=== PATIENT | female | born 1975 | race Caucasian/White ===

== ENCOUNTER 2020-09-07 20:43 | Emergency (ER) | payer OTHER, SELFPAY ==
--- NOTE | ~2020-09-07 | US_ITS ---
EXAMINATION: ABDOMINAL ULTRASOUND LIMITED CLINICAL INFORMATION: Right upper quadrant pain. COMPARISON: 04/09/2020. TECHNIQUE: Real-time imaging of the right upper quadrant abdominal viscera. FINDINGS: LIVER: The visualized portions of the liver are of normal size and echogenicity without focal lesions nor intrahepatic biliary ductal dilation. GALLBLADDER: Normal. The gallbladder is physiologically distended without evidence of stones, sludge, polyps, wall thickening or pericholecystic fluid. COMMON BILE DUCT: Normal in caliber measuring 0.4 cm in diameter. FREE FLUID: None. US/US abdomen limited IMPRESSION: Unremarkable limited right upper quadrant ultrasound. Specifically, neither cholelithiasis nor cholecystitis.
--- NOTE | ~2020-09-07 | CT_ITS ---
EXAMINATION: CT ABDOMEN AND PELVIS WITHOUT CONTRAST CLINICAL INFORMATION: Diffuse abdominal pain. Rule out extensive colitis COMPARISON: Ultrasound earlier the same day. Prior CT 04/09/2020. TECHNIQUE: Multidetector volumetric imaging was performed from the superior aspect of the liver through the pubic symphysis. Sagittal and coronal reformatted images were obtained on the technologist's workstation. This CT examination was performed using dose optimization techniques as appropriate, variously including the following: *Automated exposure control *Adjustment of mA and/or kV according to patient size (this includes techniques or standardized protocols for targeted exams where dose is matched to indication/reason for exam; i.e. extremities or head) *Use of iterative reconstruction technique DLP: 458 mGy-cm FINDINGS: LUNG BASES: The visualized lung bases are unremarkable. LIVER, GALLBLADDER, AND BILIARY TREE: There is likely diffuse hepatic steatosis with areas of focal fatty sparing adjacent the gallbladder fossa. The gallbladder is unremarkable with no evidence of radiopaque gallstones, gallbladder wall thickening, or obvious pericholecystic inflammatory changes. PANCREAS: Unremarkable. SPLEEN: Unremarkable. ADRENAL GLANDS: Left adrenal gland is diffusely enlarged, 1.2 cm. It has noncontrast density 15 Hounsfield units but it is not changed in size from the prior study. Normal right adrenal gland. KIDNEYS AND URETERS: The kidneys are normal in size, shape, and attenuation. No hydronephrosis, hydroureter, or calculi seen. No perinephric stranding. BLADDER: Unremarkable. GASTROINTESTINAL TRACT: The right colon is normal in appearance. The transverse colon, left colon, and sigmoid colon are collapsed with equivocal pathologic wall thickening. There rectum is similarly collapsed with equivocal wall thickening. ABDOMINAL WALL: There is diastases of the rectus abdominis with a tiny fat-containing umbilical hernia. LYMPH NODES: Normal sized retroperitoneal lymph nodes are present. VASCULAR: Unremarkable. PELVIC VISCERA: Uterus not seen likely surgically absent. No adnexal mass. OSSEOUS STRUCTURES: Unremarkable. CT/CT abdomen pelvis wo con IMPRESSION: The transverse colon, left colon, sigmoid colon, and rectum are collapsed with equivocal wall thickening. The wall thickening may be due to underdistention but a colitis is possible as well. Particularly the transverse colon appears to have a degree of wall thickening greater than expected for the degree of underdistention. No definite pericolonic fluid or inflammatory changes are seen however.
[2020-09-07 20:51] VITALS: BP 154/86; PULSE 100; RESP 18; TEMP 36.9; O2SAT 99; BMI 22.4
[2020-09-07 21:31] VITALS: BP 151/93; PULSE 104; RESP 18; TEMP 37.3; O2SAT 98
--- NOTE | 2020-09-07 21:52 | ED.GENADULT ---
HPI - General Adult General Chief complaint: Abdominal Pain Stated complaint: fever,abdominal pain Time Seen by Provider: 09/07/20 21:46 Source: patient and per diem interpreter Mode of arrival: ambulatory Limitations: no limitations History of Present Illness HPI narrative: This is a 45-year-old female walked in with complain of right upper quadrant abdominal pain, pain started today, pain is localized to the right upper quadrant with no radiation, describes the pain is dull aching pain under her right ribs, describe it as severe 8/10, pain has been constant and progressively worsening throughout the day, nothing makes the pain worse, nothing makes it better, never had history of similar pain. Pain is associated with runs of diarrhea started yesterday (patient described it as black diarrhea) patient refuse rectal examination, patient stated that she had 1 bowel movement while in the emergency department and was not black, patient otherwise declined nausea, vomiting, fever, or chills. Related Data Allergies Allergy/AdvReac Type Severity Reaction Status Date / Time ciprofloxacin [From CIPRO] Allergy Intermediate RASH Verified 09/07/20 20:51 Sulfa (Sulfonamide Allergy Intermediate RASH Verified 09/07/20 20:51 Antibiotics) [SULFA (SULFONAMIDE ANTIBIOTICS)] sulfamethoxazole Allergy Unknown SWELLING Verified 09/07/20 20:51 [From SEPTRA] trimethoprim [From APRRA] Allergy Unknown SWELLING Verified 09/07/20 20:51 SEAFOOD Allergy Severe ANAPHYLAXIS Uncoded 09/07/20 20:51 Review of Systems Review of Systems: All other systems are reviewed and are negative Constitutional: Reports as per HPI and Reports no additional constitutional complaints Eyes: Reports as per HPI and Reports no additional eye complaints Reports system reviewed and no additional complaints, except as documented Cardiovascular: Reports as per HPI and Reports no additional cardiovascular complaints Respiratory: Reports as per HPI and Reports no additional respiratory complaints Gastrointestinal: Reports as per HPI and Reports no additional gastrointestinal complaints Genitourinary: Reports no additional female genitourinary complaints Musculoskeletal: Reports no additional musculoskeletal complaints Skin/Breast: Reports system reviewed and no additional complaints, except as docu Psychiatric: Reports no additional psychiatric complaints Endocrine: Reports no additional endocrine complaints Hematologic/Lymphatic: Reports no additional hematologic/lymphatic complaints Allergic/Immunologic: Reports no additional allergic/immunologic complaints Reports system reviewed and no additional complaints, except as documented and Reports Abnormal speech present [facility], [facility] Past Medical History Medical History Asthma Diabetes Hepatitis A Social History Social History Alcohol intake: never Smoking Status: Current every day smoker Use of substances other than those prescribed or required for medical reasons: No Advance Directives: No Advance Directives Information Provided: No Physical Exam Vital Signs: Vital Signs: Last Vital Signs Temp 98.3 F 09/08/20 00:00 Pulse 82 09/08/20 00:00 Resp 18 09/08/20 00:00 BP 133/88 09/08/20 00:00 Pulse Ox 100 09/08/20 00:00 Body Mass Index 22.4 Vital signs have been reviewed as normal and appeared to be correct. Blood pressure in the high range. Heart rate : Tachycardia. Respiration rate normal. Temperature normal. Oxygen saturation normal. Appearance: Alert. Oriented X3. No acute distress. Head: Normal external exam. Normocephalic. Atraumatic. No Benitez signs noted. No raccoon eyes noted Eyes: PERRLA. EOMI. Conjunctiva and sclera normal. Eyelids normal. ENT: TM's Normal. Pharynx normal. Uvula midline. Moist mucous membranes. No trismus noted. No drooling noted. No muffled voice noted. Neck: Normal inspection. Neck supple. FROM. No adenopathy. Thyroid Normal. No meningeal signs. No neck mass noted. CVS: Normal heart rate and rhythm. Heart sound normal. No murmurs noted. Pulses normal throughout. Respiratory: No respiratory distress. Painless inspiration. Breath sounds normal. No wheezes/rales/rhonchi noted. Chest nontender. No accessory muscle usage noted or decreased air movement noted. Abdomen: Soft: Mild right upper quadrant tenderness, no rebound, no guarding.. Bowel sounds normal in all 4 quadrants. No distention noted. No organomegaly noted. No visible injury noted. Back: No CVA tenderness. Full range of motion noted. Skin: Skin warm and dry. Normal skin color. Normal skin turgor. No rashes/lesions/lacerations noted. Extremities: No lower extremity edema. Extremities exhibit normal range of motion. Extremities nontender. Neuro: Oriented X 3. No motor deficit. No sensory deficit. Reflexes normal. Course Course Course Narrative: Assessment and plan. 45-year-old female came in with abdominal pain and nonbloody watery diarrhea, however patient reported black diarrhea in the beginning then started to become yellow now and patient refused rectal examination. Labs, gallbladder ultrasound, abdominal CT and unremarkable. As discussed with the patient will discharged can use [id number] Imodium follow-up with PCP. Medical Decision Making Lab Data Lab results reviewed: Yes I reviewed the patient's lab results. Result diagrams: 09/07/20 22:03 09/07/20 22:03 Labs: Lab Results 09/07/20 09/07/20 09/07/20 Range/Units 22:03 22:03 22:03 WBC 11.3 H (4.8-10.8) X10*3/uL RBC 4.71 (4.20-5.50) X10*6/uL Hgb 14.1 (12.0-16.0) g/dl Hct 41.6 (37-47) % MCV 88.3 (80-98) fL MCH 29.9 (27.0-33.0) pg MCHC 33.9 (31.0-35.0) g/dl RDW 12.6 (11.0-16.0) % Plt Count 364 (160-400) X10*3/uL MPV 9.8 (9.4-12.3) fL Immature Gran % (Auto) 0.3 (0.0-0.4) % Neut % (Auto) 66.4 (45-73) % Lymph % (Auto) 26.2 (20-40) % [place] % (Auto) 5.7 (2-11) % Eos % (Auto) 1.0 (0-4) % Baso % (Auto) 0.4 (0-2) % Lymph # (Auto) 3.0 (1.2-4.9) X10*3/uL [place] # (Auto) 0.7 (0.1-1.2) X10*3/uL Eos # (Auto) 0.1 (0.0-0.4) X10*3/uL Baso # (Auto) 0.0 (0.0-0.2) X10*3/uL Abs Immat Gran (auto) 0.03 (0.00-0.03) X10*3/uL Absolute Neuts (auto) 7.5 (2.0-8.3) X10*3/uL Absolute Nucleated RBC 0.000 (0.0-0.012) X10*3/uL Nucleated RBC % (auto) 0.0 (0.0-0.2) /100WBC Sodium 138 (135-145) mmol/L Potassium 3.7 (3.3-5.1) mmol/L Chloride 101 (96-108) mmol/L Carbon Dioxide 23 (22-29) mmol/L Anion Gap 18 (12-20) BUN 7 L (9-16) mg/dL Creatinine 0.80 (0.5-1.4) mg/dL Estim Creat Clear Calc 80.8 Estimated GFR > 60 Random Glucose 258 H (60-115) mg/dL Calcium 9.0 (8.4-10.2) mg/dL Total Bilirubin 0.4 (0.0-1.0) mg/dL Direct Bilirubin 0.2 (0.0-0.5) mg/dL AST 45 H (5-31) U/L ALT 57 H (0-31) U/L Alkaline Phosphatase 103 (39-117) U/L Total Protein 7.6 (6.5-8.0) g/dL Albumin 4.3 (3.5-5.0) g/dL Lipase 55 (8-78) U/L Urine Color Urine Appearance Urine pH (5.0-8.0) Ur Specific [place] (1.005-1.025) Urine Protein (NEG-TRACE) MG/DL Urine Glucose (UA) (NEG) MG/DL Urine Ketones (NEG) MG/DL Urine Blood (NEG) Urine Nitrite (NEG) Ur Leukocyte Esterase (NEG) Urine Test (NEGATIVE) 09/07/20 Range/Units 22:20 WBC (4.8-10.8) X10*3/uL RBC (4.20-5.50) X10*6/uL Hgb (12.0-16.0) g/dl Hct (37-47) % MCV (80-98) fL MCH (27.0-33.0) pg MCHC (31.0-35.0) g/dl RDW (11.0-16.0) % Plt Count (160-400) X10*3/uL MPV (9.4-12.3) fL Immature Gran % (Auto) (0.0-0.4) % Neut % (Auto) (45-73) % Lymph % (Auto) (20-40) % [place] % (Auto) (2-11) % Eos % (Auto) (0-4) % Baso % (Auto) (0-2) % Lymph # (Auto) (1.2-4.9) X10*3/uL [place] # (Auto) (0.1-1.2) X10*3/uL Eos # (Auto) (0.0-0.4) X10*3/uL Baso # (Auto) (0.0-0.2) X10*3/uL Abs Immat Gran (auto) (0.00-0.03) X10*3/uL Absolute Neuts (auto) (2.0-8.3) X10*3/uL Absolute Nucleated RBC (0.0-0.012) X10*3/uL Nucleated RBC % (auto) (0.0-0.2) /100WBC Sodium (135-145) mmol/L Potassium (3.3-5.1) mmol/L Chloride (96-108) mmol/L Carbon Dioxide (22-29) mmol/L Anion Gap (12-20) BUN (9-16) mg/dL Creatinine (0.5-1.4) mg/dL Estim Creat Clear Calc Estimated GFR Random Glucose (60-115) mg/dL Calcium (8.4-10.2) mg/dL Total Bilirubin (0.0-1.0) mg/dL Direct Bilirubin (0.0-0.5) mg/dL AST (5-31) U/L ALT (0-31) U/L Alkaline Phosphatase (39-117) U/L Total Protein (6.5-8.0) g/dL Albumin (3.5-5.0) g/dL Lipase (8-78) U/L Urine Color YELLOW Urine Appearance CLEAR Urine pH 6.0 (5.0-8.0) Ur Specific [place] >= 1.030 H (1.005-1.025) Urine Protein NEG (NEG-TRACE) MG/DL Urine Glucose (UA) 500 H (NEG) MG/DL Urine Ketones NEG (NEG) MG/DL Urine Blood NEG (NEG) Urine Nitrite NEG (NEG) Ur Leukocyte Esterase NEG (NEG) Urine Test NEGATIVE (NEGATIVE) Imaging Data CT scan - abdomen: Radiologist's impression: The transverse colon, left colon, sigmoid colon, and rectum are collapsed with equivocal wall thickening. The wall thickening may be due to underdistention but a colitis is possible as well. Particularly the transverse colon appears to have a degree of wall thickening greater than expected for the degree of underdistention. No definite pericolonic fluid or inflammatory changes are seen however. Gallbladder ultrasound.: Radiologist's impression: Unremarkable limited right upper quadrant ultrasound. Specifically, neither cholelithiasis nor cholecystitis. Discharge Plan Discharge Clinical Impression: Elevated liver function tests Diarrhea Qualifiers: Diarrhea type: unspecified type Qualified Code(s): R19.7 - Diarrhea, unspecified Abdominal pain Qualifiers: Abdominal location: upper abdomen, unspecified Qualified Code(s): R10.10 - Upper abdominal pain, unspecified Patient Disposition: Home, Self-Care Instructions: Acute Diarrhea (ED), Abdominal Pain (ED) Referrals: Jayashree Quick PA [Primary Care Provider] - 2 days
[2020-09-07] MEDS: 0.9 % Sodium Chloride 1,000 ML 999 ML IVCONT (22:04)
[2020-09-07 22:22] LABS: Basophils Percent Auto 0.4 % (0-2); Eosinophils Absolute Auto 0.1 X10*3/uL (0.0-0.4); Hematocrit 41.6 % (37-47); Hemoglobin 14.1 g/dl (12.0-16.0); Imm Gran Abs Auto 0.03 X10*3/uL (0.00-0.03); Imm Gran Pct Auto 0.3 % (0.0-0.4); Lymphocytes Percent Auto 26.2 % (20-40); MANUAL DIFF FLAG NO; Mean Corpuscular HGB Conc 33.9 g/dl (31.0-35.0); Mean Corpuscular Hemoglobin 29.9 pg (27.0-33.0); Mean Corpuscular Volume 88.3 fL (80-98); Mean Platelet Volume 9.8 fL (9.4-12.3); Monocytes Absolute Auto 0.7 X10*3/uL (0.1-1.2); Monocytes Percent Auto 5.7 % (2-11); Neutrophils Absolute Auto 7.5 X10*3/uL (2.0-8.3); Neutrophils Percent Auto 66.4 % (45-73); Platelet Count 364 X10*3/uL (160-400); Red Blood Count 4.71 X10*6/uL (4.20-5.50); Red Cell Distribution Width 12.6 % (11.0-16.0); White Blood Count 11.3 X10*3/uL (4.8-10.8)
[2020-09-07] MEDS: Ketorolac Tromethamine 15 MG/ML VIAL IV (22:24)
[2020-09-07 22:33] LABS: Glucose Urine UA 500 MG/DL (NEG); Leukocyte Esterase Urine NEG (NEG); Nitrite Urine NEG (NEG); Specific Gravity - Urine >= 1.030 (1.005-1.025); Urine Blood NEG (NEG); Urine Ketones NEG (NEG); Urine Protein NEG (NEG-TRACE)
[2020-09-07 22:36] LABS: Appearance Urine CLEAR; Color Urine YELLOW; UPreg QC Valid YES; Urine Pregnancy NEGATIVE (NEGATIVE)
[2020-09-07 22:40] VITALS: BP 128/78; BP 136/89; PULSE 84; PULSE 87
[2020-09-07 22:41] VITALS: BP 132/88; PULSE 94
[2020-09-07 22:43] LABS: Lipase 55 U/L (8-78)
[2020-09-07 22:45] LABS: Alanine Aminotransferase 57 U/L (0-31); Albumin Level 4.3 g/dL (3.5-5.0); Alkaline Phosphatase 103 U/L (39-117); Anion Gap 18 (12-20); Aspartate Amino Transferase 45 U/L (5-31); Bilirubin Direct 0.2 mg/dL (0.0-0.5); Bilirubin Total 0.4 mg/dL (0.0-1.0); Blood Urea Nitrogen 7 mg/dL (9-16); Carbon Dioxide 23 mmol/L (22-29); Chloride 101 mmol/L (96-108); Creatinine Clr Calc Pharmacy 80.8; Estimated Glomerular Filt Rate > 60; Glucose Random 258 mg/dL (60-115); Potassium 3.7 mmol/L (3.3-5.1); Sodium 138 mmol/L (135-145); Total Protein 7.6 g/dL (6.5-8.0)
[2020-09-08] VITALS: BP 133/88; PULSE 82; RESP 18; TEMP 36.8; O2SAT 100
== END 2020-09-08 01:07 | disposition home or self-care (01) ==
PROVIDERS: Emergency Provider Emergency Medicine; PCP Physician Assistant Medical
DX: R19.7 Diarrhea, unspecified (principal); R10.11 Right upper quadrant pain; R79.89 Other specified abnormal findings of blood chemistry; E11.9 Type 2 diabetes mellitus without complications
CPT/HCPCS: 36415; 74176; 76705; 80048; 80076; 81003; 81025; 83690; 85025; 96361; 96374; 99284; 99285; J1885

== ENCOUNTER 2020-10-22 17:47 | Emergency (ER) | payer OTHER, SELFPAY ==
--- NOTE | ~2020-10-22 | CT_ITS ---
EXAMINATION: CT ABDOMEN AND PELVIS WITH CONTRAST CLINICAL INFORMATION: Right upper quadrant and epigastric pain COMPARISON: CT abdomen pelvis 09/07/2020 and ultrasound abdomen 09/07/2020 TECHNIQUE: Multidetector volumetric images were obtained from the superior aspect of the liver through the pubic symphysis following administration 85 mL of Omnipaque 350 intravenous contrast. Sagittal and coronal reformatted images were obtained on the technologist's workstation. Oral contrast: No This CT examination was performed using dose optimization techniques as appropriate, variously including the following: *Automated exposure control *Adjustment of mA and/or kV according to patient size (this includes techniques or standardized protocols for targeted exams where dose is matched to indication/reason for exam; i.e. extremities or head) *Use of iterative reconstruction technique DLP: 466 mGy-cm FINDINGS: LUNG BASES: The visualized lung bases are unremarkable. A 1 cm posterior paracardiac lymph node is seen, unchanged. LIVER, GALLBLADDER, AND BILIARY TREE: The liver is mildly enlarged measuring 18.7 cm in greatest cephalocaudad dimension. Diffuse height low-attenuation most likely reflects hepatic steatosis. This was noted on the prior ultrasound with an area of focal fatty sparing adjacent to the gallbladder better appreciated on the ultrasound exam than this CT study. No focal hepatic lesion or biliary ductal dilatation is present. The gallbladder is unremarkable with no evidence of radiopaque gallstones, gallbladder wall thickening, or obvious pericholecystic inflammatory changes. PANCREAS: Unremarkable. SPLEEN: Unremarkable. ADRENAL GLANDS: Bilateral adrenal masses/hypertrophy are unchanged. KIDNEYS AND URETERS: The kidneys are normal in size, shape, and attenuation. No hydronephrosis, hydroureter, or calculi seen. No perinephric stranding. BLADDER: Unremarkable. GASTROINTESTINAL TRACT: Small hiatal hernia is present. The small and large bowel are unremarkable. The appendix is none seen with certainty but there is no evidence of appendicitis.. ABDOMINAL WALL: No significant hernia is appreciated. Injection granulomas are noted in the buttocks. LYMPH NODES: No retroperitoneal lymphadenopathy seen. VASCULAR: Infrarenal aortobiiliac atherosclerotic disease is present most marked at the bifurcation and common iliac arteries. PELVIC VISCERA: Surgically removed OSSEOUS STRUCTURES: Unremarkable. CT/CT abdomen pelvis w con IMPRESSION: 1. Enlarged fatty liver 2. Unchanged bilateral adrenal masses, presumed benign adenomas 3. Small hiatal hernia 4. Status post hysterectomy
[2020-10-22 18:23] VITALS: BP 174/87; PULSE 100; RESP 18; O2SAT 100; BMI 24.2
[2020-10-22 18:46] LABS: MANUAL DIFF FLAG NO
[2020-10-22 18:48] LABS: Basophils Percent Auto 0.2 % (0-2); Eosinophils Absolute Auto 0.1 X10*3/uL (0.0-0.4); Eosinophils Percent Auto 0.4 % (0-4); Hematocrit 40.9 % (37-47); Hemoglobin 13.7 g/dl (12.0-16.0); Imm Gran Abs Auto 0.04 X10*3/uL (0.00-0.03); Imm Gran Pct Auto 0.3 % (0.0-0.4); Lymphocytes Absolute Auto 2.6 X10*3/uL (1.2-4.9); Lymphocytes Percent Auto 21.3 % (20-40); Mean Corpuscular HGB Conc 33.5 g/dl (31.0-35.0); Mean Corpuscular Hemoglobin 29.1 pg (27.0-33.0); Monocytes Absolute Auto 0.6 X10*3/uL (0.1-1.2); Monocytes Percent Auto 4.7 % (2-11); Neutrophils Absolute Auto 8.8 X10*3/uL (2.0-8.3); Neutrophils Percent Auto 73.1 % (45-73); Platelet Count 358 X10*3/uL (160-400); Red Cell Distribution Width 12.6 % (11.0-16.0)
[2020-10-22 18:56] LABS: Glucose Urine UA >=1000 MG/DL (NEG); Leukocyte Esterase Urine NEG (NEG); Nitrite Urine NEG (NEG); Specific Gravity - Urine 1.015 (1.005-1.025); Urine Blood NEG (NEG); Urine Ketones NEG (NEG); Urine Protein NEG (NEG-TRACE)
[2020-10-22 19:01] LABS: Appearance Urine CLEAR; Color Urine YELLOW
[2020-10-22 19:06] LABS: UPreg QC Valid YES; Urine Pregnancy NEGATIVE (NEGATIVE)
[2020-10-22 19:18] LABS: Alanine Aminotransferase 46 U/L (0-31); Albumin Level 4.2 g/dL (3.5-5.0); Alkaline Phosphatase 122 U/L (39-117); Anion Gap 17 (12-20); Aspartate Amino Transferase 26 U/L (5-31); Bilirubin Direct < 0.2 mg/dL (0.0-0.5); Bilirubin Total 0.5 mg/dL (0.0-1.0); Blood Urea Nitrogen 7 mg/dL (9-16); Carbon Dioxide 30 mmol/L (22-29); Chloride 95 mmol/L (96-108); Creatinine Clr Calc Pharmacy 75.1; Estimated Glomerular Filt Rate > 60; Glucose Random 421 mg/dL (60-115); Potassium 3.9 mmol/L (3.3-5.1); Sodium 138 mmol/L (135-145); Total Protein 7.7 g/dL (6.5-8.0)
[2020-10-22 19:23] LABS: RBC Urine 0 /HPF (0); Squamous Epithelial Cell Urine 1+ /LPF
[2020-10-22 21:22] LABS: Acetone, serum QL Negative (Negative)
[2020-10-22] MEDS: Insulin Regular, Human 100 UNIT/ML 3 ML VIAL 10 UNIT IVPUSH (21:39)
[2020-10-22] MEDS: 0.9 % Sodium Chloride 1,000 ML 999 ML IVCONT (21:39)
--- NOTE | 2020-10-22 21:41 | ED_ITS ---
HPI - Abdominal Pain General Chief Complaint: Abdominal Pain Stated Complaint: Abd Pain Time Seen by Provider: 10/22/20 20:58 Source: patient Mode of arrival: ambulatory Limitations: no limitations History of Present Illness HPI narrative: Patient comes emergency room complaining of epigastric and right upper quadrant pain. Patient states that she has had similar pain in the past. Patient denies vomiting or diarrhea. The pain started earlier this morning. Patient was evaluated on September 07 for abdominal pain, she had a CT scan and a right upper quadrant ultrasound, both within normal limits Related Data Allergies Allergy/AdvReac Type Severity Reaction Status Date / Time ciprofloxacin [From CIPRO] Allergy Intermediate RASH Verified 09/07/20 20:51 Sulfa (Sulfonamide Allergy Intermediate RASH Verified 09/07/20 20:51 Antibiotics) [SULFA (SULFONAMIDE ANTIBIOTICS)] sulfamethoxazole Allergy Unknown SWELLING Verified 09/07/20 20:51 [From ] trimethoprim [From ] Allergy Unknown SWELLING Verified 09/07/20 20:51 SEAFOOD Allergy Severe ANAPHYLAXIS Uncoded 09/07/20 20:51 Review of Systems Review of Systems Constitutional : No Weight loss, No Fever, No Chills, No Night Sweats, No Fatigue, No Malaise ENT/Mouth : No Hearing loss, No Ear Pain, No Nasal Congestion, No Sinus Pain, No Hoarseness, No sore throat, No Rhinorrhea, No Swallowing Difficulty Eyes: No Eye Pain, No Swelling, No Redness, No Foreign Body, No Discharge, No V ision Changes Cardiovascular : No Chest Pain, No SOB, No Dyspnea on Exertion, No Orthopnea, No Edema, No Palpitations Respiratory : No Cough, No Sputum, No Wheezing, No Smoke Exposure, No Dyspnea Gastrointestinal : No Nausea, No Vomiting, No Diarrhea, No Constipation, complaining of epigastric and right upper quadrant pain, No Hematochezia, No Melena Genitourinary : no irregular bleeding, No Dysuria, No Urinary Frequency, No Hematuria, No Urinary Incontinence, No Urgency, No Flank Pain, No Urinary Flow Changes, No Hesitancy Musculoskeletal : No joint pain, No Myalgias, No Joint Swelling Skin : No Skin Lesions, No rash Neuro : No Weakness, No Numbness, No Paresthesias, No Loss of Consciousness, No Dizziness, No Headache Psych : No Anxiety/Panic, No Depression, No SI/HI/AH/VH, No Social Issues, Heme/Lymph: No Bruising, No Bleeding,No Lymphadenopathy Endocrine : No Polyuria, No Polydipsia, No Temperature Intolerance Physical Exam Vital Signs: Vital Signs: Last Vital Signs Temp 98.7 F 10/22/20 22:00 Pulse 84 10/22/20 22:00 Resp 16 10/22/20 22:00 BP 165/87 H 10/22/20 22:00 Pulse Ox 100 10/22/20 22:00 Body Mass Index 24.2 Appearance: Alert. Oriented X3. No acute distress. Eyes: Pupils equal, round and reactive to light. ENT: Pharynx normal. Neck: Normal inspection. Neck supple. No lymph nodes noted. No crepitus CVS: Normal heart rate and rhythm. Pulses normal. Normal S1 and S2 Respiratory: No respiratory distress. Breath sounds normal. No Wheezing. No rales Abdomen: Soft , pain to palpation over the epigastric area in the right upper quadrant No rigidity. No distention. good BS x4 Skin: Skin warm and dry. Normal skin color. Normal skin turgor. Extremities: No lower extremity edema. No lower extremity edema. No Lacerations. No Rash Neuro: Oriented X 3. No motor deficit. No sensory deficit. Moving all extermities. No slurred speech. Course Course Course Narrative: I discussed the labs and imaging with the patient, no acute findings patient's adrenal masses/possible benign adenomas are unchanged. Patient does have a fatty liver. Otherwise no acute findings. I discussed with the patient that she has presumably benign adenomas, but she needs to follow up with her primary care physician about these findings. Overall patient states that she feels a little bit better, but is concerned about the recurrent abdominal pain. Patient states that she has gastroenterology office visit pending Also discussed with the patient that she has fatty liver, she will talk to her primary care physician about a diet plan. MDM - Abdominal Pain Lab Data Result diagrams: 10/22/20 18:40 10/22/20 18:40 Labs: Lab Results 10/22/20 10/22/20 10/22/20 Range/Units 18:40 18:40 18:40 WBC 12.0 H (4.8-10.8) X10*3/uL RBC 4.70 (4.20-5.50) X10*6/uL Hgb 13.7 (12.0-16.0) g/dl Hct 40.9 (37-47) % MCV 87.0 (80-98) fL MCH 29.1 (27.0-33.0) pg MCHC 33.5 (31.0-35.0) g/dl RDW 12.6 (11.0-16.0) % Plt Count 358 (160-400) X10*3/uL MPV 10.0 (9.4-12.3) fL Immature Gran % (Auto) 0.3 (0.0-0.4) % Neut % (Auto) 73.1 H (45-73) % Lymph % (Auto) 21.3 (20-40) % [place] % (Auto) 4.7 (2-11) % Eos % (Auto) 0.4 (0-4) % Baso % (Auto) 0.2 (0-2) % Lymph # (Auto) 2.6 (1.2-4.9) X10*3/uL [place] # (Auto) 0.6 (0.1-1.2) X10*3/uL Eos # (Auto) 0.1 (0.0-0.4) X10*3/uL Baso # (Auto) 0.0 (0.0-0.2) X10*3/uL Abs Immat Gran (auto) 0.04 H (0.00-0.03) X10*3/uL Absolute Neuts (auto) 8.8 H (2.0-8.3) X10*3/uL Absolute Nucleated RBC 0.000 (0.0-0.012) X10*3/uL Nucleated RBC % (auto) 0.0 (0.0-0.2) /100WBC Sodium 138 (135-145) mmol/L Potassium 3.9 (3.3-5.1) mmol/L Chloride 95 L (96-108) mmol/L Carbon Dioxide 30 H (22-29) mmol/L Anion Gap 17 (12-20) BUN 7 L (9-16) mg/dL Creatinine 0.86 (0.5-1.4) mg/dL Estim Creat Clear Calc 75.1 Estimated GFR > 60 Random Glucose 421 H* (60-115) mg/dL Calcium 10.0 D (8.4-10.2) mg/dL Total Bilirubin 0.5 (0.0-1.0) mg/dL Direct Bilirubin < 0.2 (0.0-0.5) mg/dL AST 26 D (5-31) U/L ALT 46 H (0-31) U/L Alkaline Phosphatase 122 H (39-117) U/L Total Protein 7.7 (6.5-8.0) g/dL Albumin 4.2 (3.5-5.0) g/dL Urine Color YELLOW Urine Appearance CLEAR Urine pH 7.0 (5.0-8.0) Ur Specific [place] 1.015 (1.005-1.025) Urine Protein NEG (NEG-TRACE) MG/DL Urine Glucose (UA) >=1000 H (NEG) MG/DL Urine Ketones NEG (NEG) MG/DL Urine Blood NEG (NEG) Urine Nitrite NEG (NEG) Ur Leukocyte Esterase NEG (NEG) Urine RBC 0 (0) /HPF Urine WBC 1-4 (0-4) /HPF Ur Squamous Epith Cells 1+ /LPF Urine Bacteria NONE /LPF Urine Yeast 1+ /HPF Urine Test (NEGATIVE) Acetone, Qual Negative (Negative) 10/22/20 Range/Units 18:40 WBC (4.8-10.8) X10*3/uL RBC (4.20-5.50) X10*6/uL Hgb (12.0-16.0) g/dl Hct (37-47) % MCV (80-98) fL MCH (27.0-33.0) pg MCHC (31.0-35.0) g/dl RDW (11.0-16.0) % Plt Count (160-400) X10*3/uL MPV (9.4-12.3) fL Immature Gran % (Auto) (0.0-0.4) % Neut % (Auto) (45-73) % Lymph % (Auto) (20-40) % [place] % (Auto) (2-11) % Eos % (Auto) (0-4) % Baso % (Auto) (0-2) % Lymph # (Auto) (1.2-4.9) X10*3/uL [place] # (Auto) (0.1-1.2) X10*3/uL Eos # (Auto) (0.0-0.4) X10*3/uL Baso # (Auto) (0.0-0.2) X10*3/uL Abs Immat Gran (auto) (0.00-0.03) X10*3/uL Absolute Neuts (auto) (2.0-8.3) X10*3/uL Absolute Nucleated RBC (0.0-0.012) X10*3/uL Nucleated RBC % (auto) (0.0-0.2) /100WBC Sodium (135-145) mmol/L Potassium (3.3-5.1) mmol/L Chloride (96-108) mmol/L Carbon Dioxide (22-29) mmol/L Anion Gap (12-20) BUN (9-16) mg/dL Creatinine (0.5-1.4) mg/dL Estim Creat Clear Calc Estimated GFR Random Glucose (60-115) mg/dL Calcium (8.4-10.2) mg/dL Total Bilirubin (0.0-1.0) mg/dL Direct Bilirubin (0.0-0.5) mg/dL AST (5-31) U/L ALT (0-31) U/L Alkaline Phosphatase (39-117) U/L Total Protein (6.5-8.0) g/dL Albumin (3.5-5.0) g/dL Urine Color Urine Appearance Urine pH (5.0-8.0) Ur Specific [place] (1.005-1.025) Urine Protein (NEG-TRACE) MG/DL Urine Glucose (UA) (NEG) MG/DL Urine Ketones (NEG) MG/DL Urine Blood (NEG) Urine Nitrite (NEG) Ur Leukocyte Esterase (NEG) Urine RBC (0) /HPF Urine WBC (0-4) /HPF Ur Squamous Epith Cells /LPF Urine Bacteria /LPF Urine Yeast /HPF Urine Test NEGATIVE (NEGATIVE) Acetone, Qual (Negative) Imaging Data CT scan - abdomen: Radiologist's impression: FINDINGS: LUNG BASES: The visualized lung bases are unremarkable. A 1 cm posterior paracardiac lymph node is seen, unchanged. LIVER, GALLBLADDER, AND BILIARY TREE: The liver is mildly enlarged measuring 18.7 cm in greatest cephalocaudad dimension. Diffuse height low-attenuation most likely reflects hepatic steatosis. This was noted on the prior ultrasound with an area of focal fatty sparing adjacent to the gallbladder better appreciated on the ultrasound exam than this CT study. No focal hepatic lesion or biliary ductal dilatation is present. The gallbladder is unremarkable with no evidence of radiopaque gallstones, gallbladder wall thickening, or obvious pericholecystic inflammatory changes. PANCREAS: Unremarkable. SPLEEN: Unremarkable. ADRENAL GLANDS: Bilateral adrenal masses/hypertrophy are unchanged. KIDNEYS AND URETERS: The kidneys are normal in size, shape, and attenuation. No hydronephrosis, hydroureter, or calculi seen. No perinephric stranding. BLADDER: Unremarkable. GASTROINTESTINAL TRACT: Small hiatal hernia is present. The small and large bowel are unremarkable. The appendix is none seen with certainty but there is no evidence of appendicitis.. ABDOMINAL WALL: No significant hernia is appreciated. Injection granulomas are noted in the buttocks. LYMPH NODES: No retroperitoneal lymphadenopathy seen. VASCULAR: Infrarenal aortobiiliac atherosclerotic disease is present most marked at the bifurcation and common iliac arteries. PELVIC VISCERA: Surgically removed OSSEOUS STRUCTURES: Unremarkable. CT/CT abdomen pelvis w con IMPRESSION: 1. Enlarged fatty liver 2. Unchanged bilateral adrenal masses, presumed benign adenomas 3. Small hiatal hernia 4. Status post hysterectomy Discharge Plan Discharge Clinical Impression: Abdominal pain Qualifiers: Abdominal location: unspecified location Qualified Code(s): R10.9 - Unspecified abdominal pain Patient Disposition: Home, Self-Care Instructions: Abdominal Pain (ED) Additional Instructions: Please follow-up with your primary care physician tomorrow. If you have any worsening or new symptoms, please return to the emergency room or call 911 Referrals: Jayashree Quick PA [Primary Care Provider] - [facility] Past Medical History Medical History Asthma Diabetes Hepatitis A Social History Social History Alcohol intake: never Smoking Status: Current every day smoker Advance Directives: No Advance Directives Information Provided: No
[2020-10-22 21:42] VITALS: BP 127/78; PULSE 83; RESP 16; TEMP 37.2; O2SAT 100
[2020-10-22 22:00] VITALS: BP 165/87; PULSE 84; RESP 16; TEMP 37.1; O2SAT 100
[2020-10-22 22:52] LABS: Glucose, Whole Blood 245 mg/dL (60-115)
[2020-10-22] MEDS: Magnesium Hydrox/Alum Hydrox 30 ML ORAL.SUSP PO (23:31)
[2020-10-22] MEDS: Lidocaine HCl Viscous 2 % 15 ML SOLUTION MUCOUS MEM (23:31)
== END 2020-10-22 23:33 | disposition home or self-care (01) ==
PROVIDERS: Emergency Provider Emergency Medicine; PCP Physician Assistant Medical
DX: R10.11 Right upper quadrant pain (principal); R10.13 Epigastric pain; F17.200 Nicotine dependence, unspecified, uncomplicated; Z71.6 Tobacco abuse counseling
CPT/HCPCS: 36415; 74177; 80048; 80076; 81001; 81003; 81025; 82009; 82947; 85025; 96361; 96365; 96375; 99284; Q9967

== ENCOUNTER 2020-12-24 18:33 | Emergency (ER) | payer OTHER, SELFPAY ==
[2020-12-24] VITALS (7 sets, daily range): BP systolic 110–144; BP diastolic 61–91; PULSE 81–119; RESP 18–24; TEMP 36.8–37; O2SAT 98–99; BMI 23.3
--- NOTE | ~2020-12-24 | XR_ITS ---
EXAMINATION: XR KNEE, LEFT CLINICAL INFORMATION: Knee pain COMPARISON: None TECHNIQUE: Four views of the left knee. FINDINGS: Bones and soft tissues are unremarkable. No fracture or joint effusion. Alignment is anatomic. Joint spaces are well maintained. No abnormal soft tissue calcification. XR/XR knee LT 4V IMPRESSION: Unremarkable left knee. No evidence of acute traumatic injury.
[2020-12-24 19:09] LABS: Glucose, Whole Blood 510 mg/dL (60-115)
[2020-12-24 19:17] LABS: MANUAL DIFF FLAG NO
[2020-12-24 19:20] LABS: Glucose Urine UA >=1000 MG/DL (NEG); Leukocyte Esterase Urine NEG (NEG); Nitrite Urine NEG (NEG); PH 6.5 (5.0-8.0); Specific Gravity - Urine <= 1.005 (1.005-1.025); Urine Blood NEG (NEG); Urine Ketones NEG (NEG); Urine Protein NEG (NEG-TRACE)
[2020-12-24 19:22] LABS: Appearance Urine CLEAR; Color Urine YELLOW
[2020-12-24 19:25] LABS: Basophils Percent Auto 0.4 % (0-2); Eosinophils Absolute Auto 0.1 X10*3/uL (0.0-0.4); Eosinophils Percent Auto 0.8 % (0-4); Hematocrit 37.6 % (37-47); Hemoglobin 12.7 g/dl (12.0-16.0); Imm Gran Abs Auto 0.03 X10*3/uL (0.00-0.03); Imm Gran Pct Auto 0.4 % (0.0-0.4); Lymphocytes Absolute Auto 2.8 X10*3/uL (1.2-4.9); Lymphocytes Percent Auto 33.7 % (20-40); Mean Corpuscular HGB Conc 33.8 g/dl (31.0-35.0); Mean Corpuscular Hemoglobin 29.1 pg (27.0-33.0); Mean Corpuscular Volume 86.2 fL (80-98); Mean Platelet Volume 10.2 fL (9.4-12.3); Monocytes Absolute Auto 0.5 X10*3/uL (0.1-1.2); Monocytes Percent Auto 6.1 % (2-11); Neutrophils Absolute Auto 4.9 X10*3/uL (2.0-8.3); Neutrophils Percent Auto 58.6 % (45-73); Platelet Count 288 X10*3/uL (160-400); Red Blood Count 4.36 X10*6/uL (4.20-5.50); Red Cell Distribution Width 12.8 % (11.0-16.0); White Blood Count 8.3 X10*3/uL (4.8-10.8)
[2020-12-24 19:32] LABS: RBC Urine 0-2 /HPF (0); Squamous Epithelial Cell Urine TRACE /LPF; WBC Urine 0 /HPF (0-4)
[2020-12-24 19:56] LABS: Anion Gap 14 (12-20); Blood Urea Nitrogen 10 mg/dL (9-16); Calcium 9.4 mg/dL (8.4-10.2); Carbon Dioxide 26 mmol/L (22-29); Chloride 96 mmol/L (96-108); Creatinine Clr Calc Pharmacy 68.7; Estimated Glomerular Filt Rate > 60; Glucose Random 552 mg/dL (60-115); Potassium 4.1 mmol/L (3.3-5.1); Sodium 132 mmol/L (135-145)
[2020-12-24] MEDS: 0.9 % Sodium Chloride 2,000 ML 999 ML IV (21:03)
[2020-12-24 21:12] LABS: Acetone, serum QL Negative (Negative)
[2020-12-24 21:16] LABS: Ethanol < 10 mg/dL
--- NOTE | 2020-12-24 21:41 | ED.SYNCOPE ---
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 Patient states that she when outside to drink coffee and sat in a chair and then does not remember what happened but she then found herself lying on the ground and when she realized this she was unable to get up for approximately 30 minutes. She is currently complaining left knee pain and denies seizure history. Patient states that she takes a combination of glipizide, Lantus, as well as insulin coverage for meals. She denies any fevers, chills, GI symptoms, or symptoms, shortness of breath, sore throat, or new cough. Related Data Allergies Allergy/AdvReac Type Severity Reaction Status Date / Time ciprofloxacin [From CIPRO] Allergy Intermediate RASH Verified 09/07/20 20:51 Sulfa (Sulfonamide Allergy Intermediate RASH Verified 09/07/20 20:51 Antibiotics) [SULFA (SULFONAMIDE ANTIBIOTICS)] sulfamethoxazole Allergy Unknown SWELLING Verified 09/07/20 20:51 [From SEPTRA] trimethoprim [From APRRA] Allergy Unknown SWELLING Verified 09/07/20 20:51 SEAFOOD Allergy Severe ANAPHYLAXIS Uncoded 09/07/20 20:51 Review of Systems Review of Systems: Pertinent positives and negatives as stated in HPI 10 point review of systems is otherwise negative. [facility] Past Medical History Source: nursing notes reviewed Medical History Asthma Diabetes Hepatitis A Social History Social History Alcohol intake: never Smoking Status: Never smoker Use of substances other than those prescribed or required for medical reasons: No Advance Directives: No Advance Directives Information Provided: Yes Patient : No Physical Exam Vital Signs: Vital Signs: Last Vital Signs Temp 98.3 F 12/24/20 22:42 Pulse 85 12/24/20 22:42 Resp 18 12/24/20 22:42 BP 135/87 12/24/20 22:42 Pulse Ox 99 12/24/20 21:00 Body Mass Index 23.3 VITAL SIGNS: Reviewed. GENERAL: Well developed, well nourished, in no acute distress. HEAD: Normocephalic/atraumatic EYES: PERRLA, EOMI EARS: Ext canals without abnormality NOSE: Nares patent bilateral OROPHARYNX: no oral lesions noted, posterior pharynx clear, no intraoral lesions noted to the tongue or inner cheeks NECK: Supple, no adenopathy LUNGS: Normal breath sounds. No adventitious sounds or accessory muscle use. SpO2<98> CARDIOVASCULAR: Regular rate and rhythm without noted murmurs, no JVD or lower extremity edema. ABDOMEN: Soft, non-tender, non-distended with bowel sounds. LEFT KNEE: Pain on palpation without ecchymosis, erythema, swelling NEUROLOGIC: Alert and oriented x 4. Strength and sensation to light touch were grossly intact x 4, no facial asymmetry, no pronator drift, cranial nerves 2-12 are grossly intact.. Course Course Course Narrative: This is a 45-year-old female with history and clinical presentation concerning for possible seizure, hypovolemia/dehydration secondary to hyperglycemia. Review of all investigations without acute findings other than hyperglycemia which has improved with the administration of 2 L of IV fluids. Patient received her 25 units of Lantus here in the ER and all results were discussed with her at bedside. Patient was instructed to take her glipizide when she gets home and states that she feels much better. She was discharged in stable condition with instructions to follow-up with her PCP with whom she states she has an appointment in the morning. MDM - Syncope Lab Data Result diagrams: 12/24/20 19:11 12/24/20 19:11 Labs: Lab Results 12/24/20 12/24/20 12/24/20 Range/Units 19:04 19:11 19:11 WBC 8.3 (4.8-10.8) X10*3/uL RBC 4.36 (4.20-5.50) X10*6/uL Hgb 12.7 (12.0-16.0) g/dl Hct 37.6 (37-47) % MCV 86.2 (80-98) fL MCH 29.1 (27.0-33.0) pg MCHC 33.8 (31.0-35.0) g/dl RDW 12.8 (11.0-16.0) % Plt Count 288 (160-400) X10*3/uL MPV 10.2 (9.4-12.3) fL Immature Gran % (Auto) 0.4 (0.0-0.4) % Neut % (Auto) 58.6 (45-73) % Lymph % (Auto) 33.7 (20-40) % [place] % (Auto) 6.1 (2-11) % Eos % (Auto) 0.8 (0-4) % Baso % (Auto) 0.4 (0-2) % Lymph # (Auto) 2.8 (1.2-4.9) X10*3/uL [place] # (Auto) 0.5 (0.1-1.2) X10*3/uL Eos # (Auto) 0.1 (0.0-0.4) X10*3/uL Baso # (Auto) 0.0 (0.0-0.2) X10*3/uL Abs Immat Gran (auto) 0.03 (0.00-0.03) X10*3/uL Absolute Neuts (auto) 4.9 (2.0-8.3) X10*3/uL Absolute Nucleated RBC 0.000 (0.0-0.012) X10*3/uL Nucleated RBC % (auto) 0.0 (0.0-0.2) /100WBC Sodium 132 L (135-145) mmol/L Potassium 4.1 (3.3-5.1) mmol/L Chloride 96 (96-108) mmol/L Carbon Dioxide 26 (22-29) mmol/L Anion Gap 14 (12-20) BUN 10 (9-16) mg/dL Creatinine 0.94 (0.5-1.4) mg/dL Estim Creat Clear Calc 68.7 Estimated GFR > 60 POC Glucose 510 H* (60-115) mg/dL Random Glucose 552 H* (60-115) mg/dL Calcium 9.4 (8.4-10.2) mg/dL Urine Color Urine Appearance Urine pH (5.0-8.0) Ur Specific [place] (1.005-1.025) Urine Protein (NEG-TRACE) MG/DL Urine Glucose (UA) (NEG) MG/DL Urine Ketones (NEG) MG/DL Urine Blood (NEG) Urine Nitrite (NEG) Ur Leukocyte Esterase (NEG) Urine RBC (0) /HPF Urine WBC (0-4) /HPF Ur Squamous Epith Cells /LPF Urine Bacteria /LPF Urine Test (NEGATIVE) Urine Opiates Screen (Not Detect) Ur Barbiturates Screen (Not Detect) Ur Phencyclidine Scrn (Not Detect) Ur Amphetamines Screen (Not Detect) U Benzodiazepines Scrn (Not Detect) Urine Cocaine Screen (Not Detect) U Marijuana (THC) Screen (Not Detect) Ethyl Alcohol mg/dL Acetone, Qual Negative (Negative) 12/24/20 12/24/20 12/24/20 Range/Units 19:11 19:11 19:11 WBC (4.8-10.8) X10*3/uL RBC (4.20-5.50) X10*6/uL Hgb (12.0-16.0) g/dl Hct (37-47) % MCV (80-98) fL MCH (27.0-33.0) pg MCHC (31.0-35.0) g/dl RDW (11.0-16.0) % Plt Count (160-400) X10*3/uL MPV (9.4-12.3) fL Immature Gran % (Auto) (0.0-0.4) % Neut % (Auto) (45-73) % Lymph % (Auto) (20-40) % [place] % (Auto) (2-11) % Eos % (Auto) (0-4) % Baso % (Auto) (0-2) % Lymph # (Auto) (1.2-4.9) X10*3/uL [place] # (Auto) (0.1-1.2) X10*3/uL Eos # (Auto) (0.0-0.4) X10*3/uL Baso # (Auto) (0.0-0.2) X10*3/uL Abs Immat Gran (auto) (0.00-0.03) X10*3/uL Absolute Neuts (auto) (2.0-8.3) X10*3/uL Absolute Nucleated RBC (0.0-0.012) X10*3/uL Nucleated RBC % (auto) (0.0-0.2) /100WBC Sodium (135-145) mmol/L Potassium (3.3-5.1) mmol/L Chloride (96-108) mmol/L Carbon Dioxide (22-29) mmol/L Anion Gap (12-20) BUN (9-16) mg/dL Creatinine (0.5-1.4) mg/dL Estim Creat Clear Calc Estimated GFR POC Glucose (60-115) mg/dL Random Glucose (60-115) mg/dL Calcium (8.4-10.2) mg/dL Urine Color YELLOW Urine Appearance CLEAR Urine pH 6.5 (5.0-8.0) Ur Specific [place] <= 1.005 (1.005-1.025) Urine Protein NEG (NEG-TRACE) MG/DL Urine Glucose (UA) >=1000 H (NEG) MG/DL Urine Ketones NEG (NEG) MG/DL Urine Blood NEG (NEG) Urine Nitrite NEG (NEG) Ur Leukocyte Esterase NEG (NEG) Urine RBC 0-2 (0) /HPF Urine WBC 0 (0-4) /HPF Ur Squamous Epith Cells TRACE /LPF Urine Bacteria NONE /LPF Urine Test (NEGATIVE) Urine Opiates Screen Not Detected (Not Detect) Ur Barbiturates Screen Not Detected (Not Detect) Ur Phencyclidine Scrn Not Detected (Not Detect) Ur Amphetamines Screen Not Detected (Not Detect) U Benzodiazepines Scrn Not Detected (Not Detect) Urine Cocaine Screen Not Detected (Not Detect) U Marijuana (THC) Screen Not Detected (Not Detect) Ethyl Alcohol < 10 mg/dL Acetone, Qual (Negative) 12/24/20 12/24/20 Range/Units 19:11 23:00 WBC (4.8-10.8) X10*3/uL RBC (4.20-5.50) X10*6/uL Hgb (12.0-16.0) g/dl Hct (37-47) % MCV (80-98) fL MCH (27.0-33.0) pg MCHC (31.0-35.0) g/dl RDW (11.0-16.0) % Plt Count (160-400) X10*3/uL MPV (9.4-12.3) fL Immature Gran % (Auto) (0.0-0.4) % Neut % (Auto) (45-73) % Lymph % (Auto) (20-40) % [place] % (Auto) (2-11) % Eos % (Auto) (0-4) % Baso % (Auto) (0-2) % Lymph # (Auto) (1.2-4.9) X10*3/uL [place] # (Auto) (0.1-1.2) X10*3/uL Eos # (Auto) (0.0-0.4) X10*3/uL Baso # (Auto) (0.0-0.2) X10*3/uL Abs Immat Gran (auto) (0.00-0.03) X10*3/uL Absolute Neuts (auto) (2.0-8.3) X10*3/uL Absolute Nucleated RBC (0.0-0.012) X10*3/uL Nucleated RBC % (auto) (0.0-0.2) /100WBC Sodium (135-145) mmol/L Potassium (3.3-5.1) mmol/L Chloride (96-108) mmol/L Carbon Dioxide (22-29) mmol/L Anion Gap (12-20) BUN (9-16) mg/dL Creatinine (0.5-1.4) mg/dL Estim Creat Clear Calc Estimated GFR POC Glucose 390 H* (60-115) mg/dL Random Glucose (60-115) mg/dL Calcium (8.4-10.2) mg/dL Urine Color Urine Appearance Urine pH (5.0-8.0) Ur Specific [place] (1.005-1.025) Urine Protein (NEG-TRACE) MG/DL Urine Glucose (UA) (NEG) MG/DL Urine Ketones (NEG) MG/DL Urine Blood (NEG) Urine Nitrite (NEG) Ur Leukocyte Esterase (NEG) Urine RBC (0) /HPF Urine WBC (0-4) /HPF Ur Squamous Epith Cells /LPF Urine Bacteria /LPF Urine Test NEGATIVE (NEGATIVE) Urine Opiates Screen (Not Detect) Ur Barbiturates Screen (Not Detect) Ur Phencyclidine Scrn (Not Detect) Ur Amphetamines Screen (Not Detect) U Benzodiazepines Scrn (Not Detect) Urine Cocaine Screen (Not Detect) U Marijuana (THC) Screen (Not Detect) Ethyl Alcohol mg/dL Acetone, Qual (Negative) ECG Data Attestation: I personally reviewed and interpreted this ECG as follows: Prior ECG tracings: available for review (08/28/2019 no acute changes on comparison) Interpretation: Normal sinus rhythm, HR -89, no evidence of acute ischemia, AR/QRS/QTC are within normal limits. Discharge Plan Discharge Clinical Impression: Vasovagal syncope, Dehydration, Hyperglycemia Patient Disposition: Home, Self-Care Instructions: Dehydration (ED), Diabetic Hyperglycemia (ED), Syncope (ED) Additional Instructions: 1. Reanude todos los medicamentos caseros seg?n lo recetado. 2. Tylenol 1000 mg, por v?a oral, cada 6 horas seg?n sea necesario para controlar el dolor. 3. Ibuprofeno 400 mg, por v?a oral con leche o alimentos, cada 6 horas seg?n sea necesario para controlar el dolor. 4. Aplique hielo sobre la piel no expuesta para un alivio adicional de los s?ntomas. Regrese a la colton de emergencias por cualquier empeoramiento roxana de lashonda s?ntomas. Referrals: Jayashree Quick PA [Primary Care Provider] - 2 days (Re-evaluation after seen in the ER for syncope with negative workup other than hyperglycemia without evidence of DKA or HHS. Patient was discharged in stable condition.)
[2020-12-24 22:06] LABS: Amphetamine Screen Urine Not Detected (Not Detect); Barbiturates, Urine Not Detected (Not Detect); Benzodiazepines Screen Urine Not Detected (Not Detect); Cannabinoid Screen Urine Not Detected (Not Detect); Cocaine Screen Urine Not Detected (Not Detect); Opiate Screen Urine Not Detected (Not Detect); Phencyclidine Screen Urine Not Detected (Not Detect)
--- NOTE | 2020-12-24 22:58 | ECG_ITS ---
Test Reason : SYNCOPE Blood Pressure : / mmHG Vent. Rate : 089 BPM Atrial Rate : 089 BPM P-R Int : 160 ms QRS Dur : 084 ms QT Int : 396 ms P-R-T Axes : 055 014 030 degrees QTc Int : 481 ms Normal sinus rhythm Prolonged QT Abnormal ECG When compared with ECG of 28-AUG-2019 23:05, Nonspecific T wave abnormality now evident in Anterior leads Referred By: Lorie Lockhart Electronically Signed By:LEANN ODONNELL
[2020-12-24 22:59] LABS: UPreg QC Valid YES; Urine Pregnancy NEGATIVE (NEGATIVE)
[2020-12-24 23:03] LABS: Glucose, Whole Blood 390 mg/dL (60-115)
[2020-12-25] MEDS: Insulin Glargine,Hum.rec.anlog 100 UNIT/ML 10 ML VIAL 25 UNIT SUBCUT (00:06)
== END 2020-12-25 00:21 | disposition home or self-care (01) ==
PROVIDERS: Emergency Provider Student in an Organized Health Care Education/Training Program; PCP Physician Assistant Medical
DX: R55 Syncope and collapse (principal); E11.65 Type 2 diabetes mellitus with hyperglycemia; E86.0 Dehydration; M25.562 Pain in left knee; J44.9 Chronic obstructive pulmonary disease, unspecified; B15.9 Hepatitis A without hepatic coma; Z79.84 Long term (current) use of oral hypoglycemic drugs
CPT/HCPCS: 36415; 73564; 80048; 80307; 80320; 81001; 81025; 82009; 82947; 85025; 93005; 96360; 96361; 99284; 99285

== ENCOUNTER 2021-01-22 08:04 | Emergency (ER) | payer OTHER, SELFPAY ==
--- NOTE | ~2021-01-22 | CT_ITS ---
EXAMINATION: CT ABDOMEN AND PELVIS WITHOUT CONTRAST CLINICAL INFORMATION: Abdominal pain, history of colitis. COMPARISON: CT scan of the abdomen and pelvis dated 10/22/2020. Abdominal ultrasound dated 09/07/2020. TECHNIQUE: Multidetector volumetric imaging was performed from the superior aspect of the liver through the pubic symphysis. Lack of intravenous and oral contrast limits visceral evaluation. Sagittal and coronal reformatted images were obtained on the technologist's workstation. This CT examination was performed using dose optimization techniques as appropriate, variously including the following: *Automated exposure control *Adjustment of mA and/or kV according to patient size (this includes techniques or standardized protocols for targeted exams where dose is matched to indication/reason for exam; i.e. extremities or head) *Use of iterative reconstruction technique DLP: 458 mGy-cm FINDINGS: LUNG BASES: The visualized lung bases are unremarkable. LIVER, GALLBLADDER, AND BILIARY TREE: Diffuse hepatic low-attenuation without focal abnormality. No significant biliary abnormality. PANCREAS: Unremarkable. SPLEEN: Unremarkable. ADRENAL GLANDS: Bilateral adrenal nodularity, left greater than right without significant change. KIDNEYS AND URETERS: The kidneys are normal in size, shape, and attenuation. No hydronephrosis, hydroureter, or calculi seen. No perinephric stranding. BLADDER: Unremarkable. GASTROINTESTINAL TRACT: The stomach and small bowel are unremarkable. The appendix is unremarkable. Minimal pericolonic infiltrative changes are seen at the level of the cecum with mildly enlarged ileocolic lymph nodes. No significant mural thickening is seen. The remainder of the colon is unremarkable. ABDOMINAL WALL: No significant hernia is appreciated. LYMPH NODES: Mildly enlarged ileocolic lymph nodes. VASCULAR: Unremarkable. PELVIC VISCERA: Status post hysterectomy. No adnexal normality. OSSEOUS STRUCTURES: Unremarkable. CT/CT abdomen pelvis wo con IMPRESSION: 1. Mild pericecal infiltrative changes and mildly enlarged adjacent ileocolic lymph nodes represent interval worsening the previous study and could represent a mild inflammatory process. There is no significant mural thickening in the terminal ileum and cecum. The appendix appears similar to the previous study without acute inflammation. If symptoms persist or worsen, short-term repeat CT scan is recommended to assess for more acute change. 2. Bilateral adrenal nodularity, left greater than right without significant change most consistent with adrenal adenomas. 3. Hepatic steatosis.
[2021-01-22 08:26] VITALS: BP 150/90; PULSE 99; RESP 18; TEMP 36.9; O2SAT 98
--- NOTE | 2021-01-22 08:35 | ED.ABDPAIN ---
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 Patient was diagnosed with colitis in [place]. Patient is a diabetic and has asthma. Patient has had 4 days with diarrhea. She spent 1 day in the hospital and signed herself out. MD elicited complaint: abdominal pain Pertinent past history: diverticulitis Related Data Previous Rx's Medication Instructions Recorded amoxicillin-pot clavulanate 1 tab PO BID #20 tab 01/22/21 [Augmentin] dicyclomine 10 mg PO BID #20 cap 01/22/21 metronidazole [Flagyl] 500 mg PO TID #30 tab 01/22/21 Allergies Allergy/AdvReac Type Severity Reaction Status Date / Time ciprofloxacin [From CIPRO] Allergy Intermediate RASH Verified 09/07/20 20:51 Sulfa (Sulfonamide Allergy Intermediate RASH Verified 09/07/20 20:51 Antibiotics) [SULFA (SULFONAMIDE ANTIBIOTICS)] sulfamethoxazole Allergy Unknown SWELLING Verified 09/07/20 20:51 [From SEPTRA] trimethoprim [From SEPTRA] Allergy Unknown SWELLING Verified 09/07/20 20:51 SEAFOOD Allergy Severe ANAPHYLAXIS Uncoded 09/07/20 20:51 Review of Systems Constitutional: Reports no additional constitutional complaints Eyes: Reports no additional eye complaints Denies dizziness Cardiovascular: Reports no additional cardiovascular complaints Respiratory: Reports as per HPI Gastrointestinal: Reports no additional gastrointestinal complaints Genitourinary: Reports no additional female genitourinary complaints Musculoskeletal: Reports no additional musculoskeletal complaints Skin/Breast: Denies rash Reports system reviewed and no additional complaints, except as documented, Denies dizziness and Denies Sensory deficit (Neuro) Psychiatric: Denies anxiety Physical Exam Vital Signs: Vital Signs: Last Vital Signs Temp 97.7 F 01/22/21 10:32 Pulse 91 01/22/21 10:32 Resp 16 01/22/21 10:32 BP 129/80 01/22/21 10:32 Pulse Ox 98 01/22/21 10:32 Body Mass Index 25.1 Const: General: healthy appearing Nutritional Appearance: average body habitus Orientation/consciousness: oriented to person and patient oriented x3 Limitations: no limitations HENMT: Head: Yes normal to inspection Ears: external ears normal General nose exam: Normal external nose present Mouth: Normal oral and palatal mucosa present and oropharynx normal Throat: Yes posterior oropharynx normal Eyes: General: appearance normal, both eyes and all related structures Neck: Other: supple Neck: Yes normal visual inspection Chest: Chest palpation & inspection: normal inspection of the chest Resp: Auscultation: clear to auscultation bilaterally Cardio: Jugular venous distension: no JVD Rate: regular rate Rhythm: regular rhythm Heart sounds: S1 normal heart sound present and S2 normal heart sound present GI: Inspection: Yes normal to inspection Palpation (GI): Soft to palpation, nontender and No hepatosplenomegaly present Auscultation: normal bowel sounds : General: Yes no CVA tenderness Back/Spine/Pelvis: Back: no CVA tenderness Skin: General skin exam: no rashes or lesions noted Neuro: General: oriented to person and patient oriented x3 Cranial nerves: Yes CN's II-XII intact bilaterally Motor exam (neuro): 5/5 motor strength present throughout Sensory Exam: No Sensory deficit (Neuro) Extrem: General: Yes normal to inspection Psych: Appearance: grossly normal Course Reevaluation(s) Reevaluation #1: Pain out of proportion to findings, there is midl inflammation to the cecal area will dc home on augmentin and flagyl. Patient has a cipro and bactrim allergy Time: 11:11 MDM - Abdominal Pain Lab Data Result diagrams: 01/22/21 08:59 01/22/21 08:59 Labs: Lab Results 01/22/21 01/22/21 Range/Units 08:59 08:59 WBC 8.7 (4.8-10.8) X10*3/uL RBC 4.86 (4.20-5.50) X10*6/uL Hgb 14.1 (12.0-16.0) g/dl Hct 41.8 (37-47) % MCV 86.0 (80-98) fL MCH 29.0 (27.0-33.0) pg MCHC 33.7 (31.0-35.0) g/dl RDW 13.0 (11.0-16.0) % Plt Count 334 (160-400) X10*3/uL MPV 9.5 (9.4-12.3) fL Immature Gran % (Auto) 0.2 (0.0-0.4) % Neut % (Auto) 62.9 (45-73) % Lymph % (Auto) 28.1 (20-40) % [place] % (Auto) 7.5 (2-11) % Eos % (Auto) 1.0 (0-4) % Baso % (Auto) 0.3 (0-2) % Lymph # (Auto) 2.5 (1.2-4.9) X10*3/uL [place] # (Auto) 0.7 (0.1-1.2) X10*3/uL Eos # (Auto) 0.1 (0.0-0.4) X10*3/uL Baso # (Auto) 0.0 (0.0-0.2) X10*3/uL Abs Immat Gran (auto) 0.02 (0.00-0.03) X10*3/uL Absolute Neuts (auto) 5.5 (2.0-8.3) X10*3/uL Absolute Nucleated RBC 0.000 (0.0-0.012) X10*3/uL Nucleated RBC % (auto) 0.0 (0.0-0.2) /100WBC Sodium 142 (135-145) mmol/L Potassium 3.7 (3.3-5.1) mmol/L Chloride 102 (96-108) mmol/L Carbon Dioxide 26 (22-29) mmol/L Anion Gap 18 (12-20) BUN 10 (9-16) mg/dL Creatinine 0.75 (0.5-1.4) mg/dL Estim Creat Clear Calc 93.1 Estimated GFR > 60 Random Glucose 160 H D (60-115) mg/dL Calcium 9.6 (8.4-10.2) mg/dL Total Bilirubin 0.6 (0.0-1.0) mg/dL Direct Bilirubin 0.2 (0.0-0.5) mg/dL AST 26 (5-31) U/L ALT 33 H (0-31) U/L Alkaline Phosphatase 108 (39-117) U/L Total Protein 7.6 (6.5-8.0) g/dL Albumin 4.3 (3.5-5.0) g/dL Lipase 35 (8-78) U/L Imaging Data CT scan - abdomen: Radiologist's impression: IMPRESSION: 1. Mild pericecal infiltrative changes and mildly enlarged adjacent ileocolic lymph nodes represent interval worsening the previous study and could represent a mild inflammatory process. There is no significant mural thickening in the terminal ileum and cecum. The appendix appears similar to the previous study without acute inflammation. If symptoms persist or worsen, short-term repeat CT scan is recommended to assess for more acute change. 2. Bilateral adrenal nodularity, left greater than right without significant change most consistent with adrenal adenomas. 3. Hepatic steatosis. Discharge Plan Discharge Clinical Impression: Colitis Patient Disposition: Home, Self-Care Instructions: Colitis (ED) Prescriptions: New amoxicillin-pot clavulanate [Augmentin] 875-125 mg tablet 1 tab PO BID Qty: 20 RF: 0 metronidazole [Flagyl] 500 mg tablet 500 mg PO TID Qty: 30 RF: 0 dicyclomine 10 mg capsule 10 mg PO BID Qty: 20 RF: 0 Referrals: Jayashree Quick PA [Primary Care Provider] - 1 week [facility] Past Medical History Medical History Asthma Diabetes Hepatitis A Social History Social History Alcohol intake: never Advance Directives: No Advance Directives Information Provided: No
[2021-01-22 08:36] VITALS: BP 150/90; PULSE 99; RESP 18; TEMP 36.9; O2SAT 98; BMI 25.1
[2021-01-22] MEDS: 0.9 % Sodium Chloride 1,000 ML 999 ML IVCONT ×2 (09:01→09:47)
[2021-01-22 09:10] LABS: MANUAL DIFF FLAG NO
[2021-01-22 09:13] LABS: Basophils Percent Auto 0.3 % (0-2); Eosinophils Absolute Auto 0.1 X10*3/uL (0.0-0.4); Hematocrit 41.8 % (37-47); Hemoglobin 14.1 g/dl (12.0-16.0); Imm Gran Abs Auto 0.02 X10*3/uL (0.00-0.03); Imm Gran Pct Auto 0.2 % (0.0-0.4); Lymphocytes Absolute Auto 2.5 X10*3/uL (1.2-4.9); Lymphocytes Percent Auto 28.1 % (20-40); Mean Corpuscular HGB Conc 33.7 g/dl (31.0-35.0); Mean Platelet Volume 9.5 fL (9.4-12.3); Monocytes Absolute Auto 0.7 X10*3/uL (0.1-1.2); Monocytes Percent Auto 7.5 % (2-11); Neutrophils Absolute Auto 5.5 X10*3/uL (2.0-8.3); Neutrophils Percent Auto 62.9 % (45-73); Platelet Count 334 X10*3/uL (160-400); Red Blood Count 4.86 X10*6/uL (4.20-5.50); White Blood Count 8.7 X10*3/uL (4.8-10.8)
[2021-01-22 09:33] LABS: Alanine Aminotransferase 33 U/L (0-31); Albumin Level 4.3 g/dL (3.5-5.0); Alkaline Phosphatase 108 U/L (39-117); Anion Gap 18 (12-20); Aspartate Amino Transferase 26 U/L (5-31); Bilirubin Direct 0.2 mg/dL (0.0-0.5); Bilirubin Total 0.6 mg/dL (0.0-1.0); Blood Urea Nitrogen 10 mg/dL (9-16); Calcium 9.6 mg/dL (8.4-10.2); Carbon Dioxide 26 mmol/L (22-29); Chloride 102 mmol/L (96-108); Creatinine Clr Calc Pharmacy 93.1; Estimated Glomerular Filt Rate > 60; Glucose Random 160 mg/dL (60-115); Lipase 35 U/L (8-78); Potassium 3.7 mmol/L (3.3-5.1); Sodium 142 mmol/L (135-145); Total Protein 7.6 g/dL (6.5-8.0)
[2021-01-22 10:32] VITALS: BP 129/80; PULSE 91; RESP 16; TEMP 36.5; O2SAT 98
[2021-01-22] MEDS: Ketorolac Tromethamine 30 MG/ML VIAL IVPUSH (11:31)
[2021-01-22] MEDS: Dicyclomine HCl 10 MG CAPSULE PO (11:32)
[2021-01-22] MEDS: metroNIDAZOLE 500 MG TABLET PO (11:32)
[2021-01-22] MEDS: Amoxicillin/Potassium Clav 875 MG TABLET PO (11:32)
== END 2021-01-22 11:43 | disposition home or self-care (01) ==
PROVIDERS: Emergency Provider Emergency Medicine; PCP Physician Assistant Medical
DX: K52.9 Noninfective gastroenteritis and colitis, unspecified (principal); E11.9 Type 2 diabetes mellitus without complications; J45.909 Unspecified asthma, uncomplicated
CPT/HCPCS: 36415; 74176; 80048; 80076; 83690; 85025; 96361; 96374; 99284; J1885

== ENCOUNTER 2021-04-01 14:06 | Emergency (ER) | payer OTHER, SELFPAY ==
--- NOTE | ~2021-04-01 | XR_ITS ---
EXAMINATION: XR CHEST CLINICAL INFORMATION: Shortness of breath. COMPARISON: None TECHNIQUE: PA view of the chest was obtained. FINDINGS: No significant abnormality is noted involving the heart, lungs, mediastinum, bony thorax or soft tissues. XR/XR chest 1V IMPRESSION: Unremarkable examination.
[2021-04-01 14:18] VITALS: BP 126/69; PULSE 79; RESP 16; TEMP 36.1; O2SAT 98; BMI 23.3
--- NOTE | 2021-04-01 14:20 | ECG_ITS ---
Test Reason : CHEST PAIN Blood Pressure : / mmHG Vent. Rate : 073 BPM Atrial Rate : 073 BPM P-R Int : 158 ms QRS Dur : 080 ms QT Int : 414 ms P-R-T Axes : 063 018 028 degrees QTc Int : 456 ms Normal sinus rhythm Normal ECG When compared with ECG of 24-DEC-2020 18:59, No significant change was found Referred By: Generic ED Physician Electronically Signed By:MIMI ALMEIDA
[2021-04-01 14:44] LABS: MANUAL DIFF FLAG NO
[2021-04-01 14:47] LABS: Basophils Percent Auto 0.4 % (0-2); Eosinophils Absolute Auto 0.1 X10*3/uL (0.0-0.4); Eosinophils Percent Auto 0.8 % (0-4); Hematocrit 38.2 % (37-47); Hemoglobin 12.4 g/dl (12.0-16.0); Imm Gran Abs Auto 0.06 X10*3/uL (0.00-0.03); Imm Gran Pct Auto 0.6 % (0.0-0.4); Lymphocytes Absolute Auto 2.7 X10*3/uL (1.2-4.9); Lymphocytes Percent Auto 26.4 % (20-40); Mean Corpuscular HGB Conc 32.5 g/dl (31.0-35.0); Mean Corpuscular Hemoglobin 28.5 pg (27.0-33.0); Mean Corpuscular Volume 87.8 fL (80-98); Mean Platelet Volume 9.7 fL (9.4-12.3); Monocytes Absolute Auto 0.5 X10*3/uL (0.1-1.2); Monocytes Percent Auto 4.6 % (2-11); Neutrophils Absolute Auto 6.9 X10*3/uL (2.0-8.3); Neutrophils Percent Auto 67.2 % (45-73); Platelet Count 342 X10*3/uL (160-400); Red Blood Count 4.35 X10*6/uL (4.20-5.50); Red Cell Distribution Width 13.4 % (11.0-16.0); White Blood Count 10.3 X10*3/uL (4.8-10.8)
[2021-04-01 15:01] LABS: COVID-19 Test Negative (Negative)
[2021-04-01 15:10] LABS: Anion Gap 14 (12-20); Blood Urea Nitrogen 6 mg/dL (9-16); Carbon Dioxide 26 mmol/L (22-29); Chloride 103 mmol/L (96-108); Creatinine Clr Calc Pharmacy 77.9; Estimated Glomerular Filt Rate > 60; Glucose Random 371 mg/dL (60-115); Potassium 3.8 mmol/L (3.3-5.1); Sodium 139 mmol/L (135-145); Troponin-I High Sensitivity 7.4 ng/L (<3.5-17.0)
[2021-04-01 16:00] VITALS: BP 133/85; PULSE 76; RESP 16; TEMP 36.8; O2SAT 97
[2021-04-01 16:15] LABS: Glucose Urine UA >=1000 MG/DL (NEG); Leukocyte Esterase Urine NEG (NEG); Nitrite Urine NEG (NEG); Specific Gravity - Urine <= 1.005 (1.005-1.025); Urine Blood NEG (NEG); Urine Ketones NEG (NEG); Urine Protein NEG (NEG-TRACE)
[2021-04-01 16:16] LABS: Appearance Urine CLEAR; Color Urine YELLOW
--- NOTE | 2021-04-01 16:29 | ED.SOB ---
HPI - SOB/Dyspnea General Chief Complaint: Dyspnea Stated Complaint: flu like symptoms Time Seen by Provider: 04/01/21 16:10 Source: patient Mode of arrival: ambulatory Limitations: no limitations History of Present Illness HPI Narrative: Patient 46 years old with history of diabetes and asthma been sick for last 4 5 days got a COVID vaccine 2nd shot 5 days ago since then she is not feeling good coughing a lot wheezing no fever no chills cough is mostly dry using her nebulizer inhaler without much response Related Data Previous Rx's Medication Instructions Recorded amoxicillin 875 mg-potassium 1 tab PO BID #20 tab 01/22/21 clavulanate 125 mg tablet (Augmentin) dicyclomine 10 mg capsule 10 mg PO BID #20 cap 01/22/21 metronidazole 500 mg tablet 500 mg PO TID #30 tab 01/22/21 (Flagyl) codeine 10 mg-guaifenesin 100 mg/5 10 ml PO Q4-6H PRN #237 ml 04/01/21 mL oral liquid prednisone 20 mg tablet 40 mg PO DAILY #10 tab 04/01/21 Allergies Allergy/AdvReac Type Severity Reaction Status Date / Time ciprofloxacin [From CIPRO] Allergy Intermediate RASH Verified 09/07/20 20:51 Sulfa (Sulfonamide Allergy Intermediate RASH Verified 09/07/20 20:51 Antibiotics) [SULFA (SULFONAMIDE ANTIBIOTICS)] sulfamethoxazole Allergy Unknown SWELLING Verified 09/07/20 20:51 [From SEPTRA] trimethoprim [From SEPTRA] Allergy Unknown SWELLING Verified 09/07/20 20:51 SEAFOOD Allergy Severe ANAPHYLAXIS Uncoded 09/07/20 20:51 Review of Systems Review of Systems: Yes all other systems are reviewed and are negative [facility] Past Medical History Medical History Asthma Diabetes Hepatitis A Social History Social History Alcohol intake: never Advance Directives: No Advance Directives Information Provided: No Physical Exam Vital Signs: Vital Signs: Last Vital Signs Temp 98.2 F 04/01/21 16:00 Pulse 86 04/01/21 17:07 Resp 18 04/01/21 16:47 BP 133/85 04/01/21 16:00 Pulse Ox 98 04/01/21 16:47 Body Mass Index 23.3 Appearance: Alert. Oriented X3. No acute distress. Frequent cough Eyes: No pallor or icterus ENT: Pharynx normal. Oral Mucosa moist Neck: Normal inspection. Neck supple. CVS: Normal heart rate and rhythm. Pulses normal. Respiratory: No respiratory distress. Equal air entry bilateral, bilateral wheezing diffuse Abdomen: Soft and nontender. Bowel sounds are present Skin: Skin warm and dry. Normal skin color. Normal skin turgor. Extremities: No lower extremity edema. No calf tenderness Neuro: Oriented X 3. MDM - SOB/Dyspnea MDM Narrative Medical decision making narrative: Patient with asthma chest x-ray negative COVID negative symptoms with asthmatic bronchitis will give her nebulizing treatment prednisone Lab Data Attestation: I reviewed the patient's lab results. Result diagrams: 04/01/21 14:30 04/01/21 14:30 Labs: Lab Results 04/01/21 04/01/21 04/01/21 Range/Units 14:27 14:30 14:30 WBC 10.3 (4.8-10.8) X10*3/uL RBC 4.35 (4.20-5.50) X10*6/uL Hgb 12.4 (12.0-16.0) g/dl Hct 38.2 (37-47) % MCV 87.8 (80-98) fL MCH 28.5 (27.0-33.0) pg MCHC 32.5 (31.0-35.0) g/dl RDW 13.4 (11.0-16.0) % Plt Count 342 (160-400) X10*3/uL MPV 9.7 (9.4-12.3) fL Immature Gran % (Auto) 0.6 H (0.0-0.4) % Neut % (Auto) 67.2 (45-73) % Lymph % (Auto) 26.4 (20-40) % [place] % (Auto) 4.6 (2-11) % Eos % (Auto) 0.8 (0-4) % Baso % (Auto) 0.4 (0-2) % Lymph # (Auto) 2.7 (1.2-4.9) X10*3/uL [place] # (Auto) 0.5 (0.1-1.2) X10*3/uL Eos # (Auto) 0.1 (0.0-0.4) X10*3/uL Baso # (Auto) 0.0 (0.0-0.2) X10*3/uL Abs Immat Gran (auto) 0.06 H (0.00-0.03) X10*3/uL Absolute Neuts (auto) 6.9 (2.0-8.3) X10*3/uL Absolute Nucleated RBC 0.000 (0.0-0.012) X10*3/uL Nucleated RBC % (auto) 0.0 (0.0-0.2) /100WBC Sodium 139 (135-145) mmol/L Potassium 3.8 (3.3-5.1) mmol/L Chloride 103 (96-108) mmol/L Carbon Dioxide 26 (22-29) mmol/L Anion Gap 14 (12-20) BUN 6 L (9-16) mg/dL Creatinine 0.82 (0.5-1.4) mg/dL Estim Creat Clear Calc 77.9 Estimated GFR > 60 Random Glucose 371 H* (60-115) mg/dL Calcium 9.0 D (8.4-10.2) mg/dL Troponin I High Sens (<3.5-17.0) ng/L Urine Color Urine Appearance Urine pH (5.0-8.0) Ur Specific [place] (1.005-1.025) Urine Protein (NEG-TRACE) MG/DL Urine Glucose (UA) (NEG) MG/DL Urine Ketones (NEG) MG/DL Urine Blood (NEG) Urine Nitrite (NEG) Ur Leukocyte Esterase (NEG) Urine RBC (0) /HPF Urine WBC (0-4) /HPF Ur Squamous Epith Cells /LPF Urine Bacteria /LPF Urine Yeast /HPF COVID-19 (RAGINI) Negative (Negative) COVID-19 Clin Com See Note 04/01/21 04/01/21 Range/Units 14:30 16:02 WBC (4.8-10.8) X10*3/uL RBC (4.20-5.50) X10*6/uL Hgb (12.0-16.0) g/dl Hct (37-47) % MCV (80-98) fL MCH (27.0-33.0) pg MCHC (31.0-35.0) g/dl RDW (11.0-16.0) % Plt Count (160-400) X10*3/uL MPV (9.4-12.3) fL Immature Gran % (Auto) (0.0-0.4) % Neut % (Auto) (45-73) % Lymph % (Auto) (20-40) % [place] % (Auto) (2-11) % Eos % (Auto) (0-4) % Baso % (Auto) (0-2) % Lymph # (Auto) (1.2-4.9) X10*3/uL [place] # (Auto) (0.1-1.2) X10*3/uL Eos # (Auto) (0.0-0.4) X10*3/uL Baso # (Auto) (0.0-0.2) X10*3/uL Abs Immat Gran (auto) (0.00-0.03) X10*3/uL Absolute Neuts (auto) (2.0-8.3) X10*3/uL Absolute Nucleated RBC (0.0-0.012) X10*3/uL Nucleated RBC % (auto) (0.0-0.2) /100WBC Sodium (135-145) mmol/L Potassium (3.3-5.1) mmol/L Chloride (96-108) mmol/L Carbon Dioxide (22-29) mmol/L Anion Gap (12-20) BUN (9-16) mg/dL Creatinine (0.5-1.4) mg/dL Estim Creat Clear Calc Estimated GFR Random Glucose (60-115) mg/dL Calcium (8.4-10.2) mg/dL Troponin I High Sens 7.4 (<3.5-17.0) ng/L Urine Color YELLOW Urine Appearance CLEAR Urine pH 7.0 (5.0-8.0) Ur Specific [place] <= 1.005 (1.005-1.025) Urine Protein NEG (NEG-TRACE) MG/DL Urine Glucose (UA) >=1000 H (NEG) MG/DL Urine Ketones NEG (NEG) MG/DL Urine Blood NEG (NEG) Urine Nitrite NEG (NEG) Ur Leukocyte Esterase NEG (NEG) Urine RBC 0-2 (0) /HPF Urine WBC 1-4 (0-4) /HPF Ur Squamous Epith Cells 1+ /LPF Urine Bacteria TRACE /LPF Urine Yeast 1+ /HPF COVID-19 (RAGINI) (Negative) COVID-19 Clin Com Discharge Plan Discharge Clinical Impression: Asthma with exacerbation Qualifiers: Asthma severity: moderate Asthma persistence: persistent Qualified Code(s): J45.41 - Moderate persistent asthma with (acute) exacerbation Patient Disposition: Home, Self-Care Instructions: Asthma (ED) Additional Instructions: Use inhaler/nebulizer treatment every 4-6 hours as advised. Take prednisone as advised. Check blood sugar it will go high take insulin according to sliding scale Prescriptions: New prednisone 20 mg tablet 40 mg PO DAILY Qty: 10 RF: 0 codeine-guaifenesin 10-100 mg/5 mL liquid 10 ml PO Q4-6H PRN (Reason: cough) Qty: 237 RF: 0 No Action amoxicillin-pot clavulanate [Augmentin] 875-125 mg tablet 1 tab PO BID Qty: 20 RF: 0 metronidazole [Flagyl] 500 mg tablet 500 mg PO TID Qty: 30 RF: 0 dicyclomine 10 mg capsule 10 mg PO BID Qty: 20 RF: 0 Interventions: ED Discharge Assessment Last Done: 04/01/21 18:44 Discharge Date/Time: 04/01/21 18:46
[2021-04-01 16:31] LABS: Bacteria Urine TRACE /LPF; RBC Urine 0-2 /HPF (0); Squamous Epithelial Cell Urine 1+ /LPF
[2021-04-01] MEDS: predniSONE 20 MG TABLET 60 MG PO (16:46)
[2021-04-01] MEDS: guaiFEN/Codeine SF 200/20/10ML 10 ML LIQUID PO (16:46)
[2021-04-01 16:47] VITALS: PULSE 86; RESP 18; O2SAT 98
[2021-04-01] MEDS: Albuterol Sulfate (0.083%) 2.5 MG/3 ML VIAL.NEB 5 MG INHALE (17:00)
[2021-04-01] MEDS: Albuterol/Iprat 2.5/0.5MG 3 ML AMPUL.NEB INHALE (17:06)
[2021-04-01 17:07] VITALS: PULSE 86; O2SAT 98
[2021-04-01] MEDS: Insulin Lispro 100 UNIT/ML 3 ML VIAL 12 UNIT SUBCUT (17:36)
== END 2021-04-01 18:46 | disposition home or self-care (01) ==
PROVIDERS: Emergency Provider Internal Medicine; PCP Physician Assistant Medical
DX: J45.41 Moderate persistent asthma with (acute) exacerbation (principal); Z20.822 Contact with and (suspected) exposure to COVID-19; E11.9 Type 2 diabetes mellitus without complications
CPT/HCPCS: 36415; 71045; 80048; 81001; 84484; 85025; 87635; 93005; 94640; 99283; 99284

== ENCOUNTER 2021-12-02 19:28 | Emergency (ER) | payer OTHER, SELFPAY ==
--- NOTE | ~2021-12-02 | CT_ITS ---
EXAMINATION: CT ABDOMEN AND PELVIS WITHOUT CONTRAST CLINICAL INFORMATION: Epigastric pain COMPARISON: 01/22/2021 TECHNIQUE: Multidetector volumetric imaging was performed from the superior aspect of the liver through the pubic symphysis. Sagittal and coronal reformatted images were obtained on the technologist's workstation. This CT examination was performed using dose optimization techniques as appropriate, variously including the following: *Automated exposure control *Adjustment of mA and/or kV according to patient size (this includes techniques or standardized protocols for targeted exams where dose is matched to indication/reason for exam; i.e. extremities or head) *Use of iterative reconstruction technique DLP: 456 mGy-cm FINDINGS: LUNG BASES: The visualized lung bases are unremarkable. LIVER, GALLBLADDER, AND BILIARY TREE: The liver demonstrates hypoattenuation suspicious for steatosis. No biliary ductal dilatation is present. The gallbladder is unremarkable with no evidence of radiopaque gallstones, gallbladder wall thickening, or obvious pericholecystic inflammatory changes. PANCREAS: Unremarkable. SPLEEN: Unremarkable. ADRENAL GLANDS: Redemonstrated bilateral adrenal nodules favoring adenomas, measuring up to approximately 1.6 cm on the left and 1.0 cm on the right. KIDNEYS AND URETERS: The kidneys are normal in size, shape, and attenuation. No hydronephrosis, hydroureter, or calculi seen. No perinephric stranding. BLADDER: Unremarkable. GASTROINTESTINAL TRACT: The small and large bowel are unremarkable. The appendix is unremarkable. No free fluid or free air is seen. ABDOMINAL WALL: No significant hernia is appreciated. LYMPH NODES: Normal. VASCULAR: Scattered atherosclerotic calcifications are present. PELVIC VISCERA: Patient is status post hysterectomy. OSSEOUS STRUCTURES: Unremarkable. CT/CT abdomen pelvis wo con IMPRESSION: No acute findings identified in the abdomen/pelvis. Fleischner guidelines were followed.
[2021-12-02 19:46] VITALS: BP 142/75; PULSE 92; RESP 18; TEMP 36.9; O2SAT 99; BMI 23.3
[2021-12-02 19:58] LABS: MANUAL DIFF FLAG NO
[2021-12-02 19:59] LABS: Basophils Percent Auto 0.3 % (0-2); Eosinophils Absolute Auto 0.1 X10*3/uL (0.0-0.4); Eosinophils Percent Auto 0.5 % (0-4); Hematocrit 43.1 % (37.0-47.0); Hemoglobin 14.4 g/dl (12.0-16.0); Imm Gran Abs Auto 0.05 X10*3/uL (0.00-0.03); Imm Gran Pct Auto 0.4 % (0.0-0.4); Lymphocytes Absolute Auto 3.1 X10*3/uL (1.2-4.9); Lymphocytes Percent Auto 24.5 % (20-40); Mean Corpuscular HGB Conc 33.4 g/dl (31.0-35.0); Mean Corpuscular Hemoglobin 29.7 pg (27.0-33.0); Mean Corpuscular Volume 88.9 fL (80.0-98.0); Mean Platelet Volume 10.2 fL (9.4-12.3); Monocytes Absolute Auto 0.6 X10*3/uL (0.1-1.2); Monocytes Percent Auto 4.9 % (2-11); Neutrophils Absolute Auto 8.7 x10*3/uL (2.0-8.3); Neutrophils Percent Auto 69.4 % (45-73); Platelet Count 318 X10*3/uL (160-400); Red Blood Count 4.85 X10*6/uL (4.20-5.50); Red Cell Distribution Width 12.8 % (11.0-16.0); White Blood Count 12.6 X10*3/uL (4.8-10.8)
[2021-12-02 20:25] LABS: Anion Gap 15 (12-20); Blood Urea Nitrogen 12 mg/dL (9-16); Calcium 9.7 mg/dL (8.4-10.2); Carbon Dioxide 27 mmol/L (22-29); Chloride 101 mmol/L (96-108); Creatinine Clr Calc Pharmacy 49.1; Estimated Glomerular Filt Rate 44; Glucose Random 382 mg/dL (60-115); Potassium 4.5 mmol/L (3.3-5.1); Sodium 138 mmol/L (135-145)
[2021-12-02 21:42] LABS: HCG Quantitative 6 mIU/mL
[2021-12-03 00:44] LABS: Appearance Urine CLEAR; Color Urine YELLOW; Glucose Urine UA >=1000 MG/DL (NEG); Leukocyte Esterase Urine NEG (NEG); Nitrite Urine NEG (NEG); PH 6.5 (5.0-8.0); Specific Gravity - Urine <= 1.005 (1.005-1.025); Urine Blood NEG (NEG); Urine Ketones NEG (NEG); Urine Protein NEG (NEG-TRACE)
[2021-12-03 00:50] LABS: RBC Urine 0 /HPF (0); Squamous Epithelial Cell Urine 1+ /LPF; WBC Urine 0-2 /HPF (0-4)
[2021-12-03 00:58] LABS: Lipase 74 U/L (8-78)
--- NOTE | 2021-12-03 01:10 | ED_ITS ---
HPI - Abdominal Pain General Chief Complaint: Abdominal Pain Stated Complaint: rectal bleed, abd pain Time Seen by Provider: 12/02/21 21:18 Source: patient Mode of arrival: ambulatory Limitations: no limitations History of Present Illness HPI narrative: This is a 46-year-old female presenting to the emergency department with epigastric pain that at times radiates to the right upper quadrant complaints of bleeding per rectum a few days ago and now reporting that her stool is completely ?white X3 days. Patient tells me that she has a history of pancreatitis and colitis. She reports that the abdominal pain is constant in nature and progressively worsening, described as burning and uncomfortable. She tells me that 2-3 days ago she was having a pink colored stool, she describes as the color of guava. No personal or family history of colorectal cancer. Patient tells me that she was also told that her sugar was signed she wants her sugar evaluated. She is a known type 2 diabetic. Denies shortness of breath, weakness, dizziness, nausea, vomiting, chest pain MD elicited complaint: abdominal pain Pertinent past history: none Onset (ago): day(s) (3) Pain Consistency: constant Location: epigastric Severity: moderate Quality: cramping Radiation: RUQ Migration to: no migration Exacerbating factors: nothing Relieving factors: nothing Associated symptoms: denies other symptoms Related Data Previous Rx's Medication Instructions Recorded amoxicillin 875 mg-potassium 1 tab PO BID #20 tab 01/22/21 clavulanate 125 mg tablet (Augmentin) dicyclomine 10 mg capsule 10 mg PO BID #20 cap 01/22/21 metronidazole 500 mg tablet 500 mg PO TID #30 tab 01/22/21 (Flagyl) codeine 10 mg-guaifenesin 100 mg/5 10 ml PO Q4-6H PRN #237 ml 04/01/21 mL oral liquid prednisone 20 mg tablet 40 mg PO DAILY #10 tab 04/01/21 omeprazole 10 mg capsule,delayed 10 mg PO DAILY #20 cap 12/03/21 release Allergies Allergy/AdvReac Type Severity Reaction Status Date / Time ciprofloxacin [From CIPRO] Allergy Intermediate RASH Verified 12/02/21 19:46 Sulfa (Sulfonamide Allergy Intermediate RASH Verified 12/02/21 19:46 Antibiotics) [SULFA (SULFONAMIDE ANTIBIOTICS)] sulfamethoxazole Allergy Unknown SWELLING Verified 12/02/21 19:46 [From SEPTRA] trimethoprim [From ] Allergy Unknown SWELLING Verified 12/02/21 19:46 SEAFOOD Allergy Severe ANAPHYLAXIS Uncoded 12/02/21 19:46 Review of Systems Review of Systems Constitutional : No Weight loss, No Fever, No Chills, No Fatigue, No Malaise ENT/Mouth : No sore throat, No Rhinorrhea Eyes: No Eye Pain, No Swelling, No Redness Cardiovascular : No Chest Pain, No SOB, No Dyspnea on Exertion, No Orthopnea, No Edema, No Palpitations Respiratory : No Cough, No Sputum, No Wheezing Gastrointestinal : No Nausea, No Vomiting, No Diarrhea, No Constipation, + abdominal Pain, + Hematochezia, No Melena Genitourinary : No Dysuria, No Urinary Frequency, No Hematuria, Musculoskeletal : No joint pain, No Myalgias, No Joint Swelling Skin : No Skin Lesions, No rash Neuro : No Weakness, No Numbness, No Dizziness, No Headache Psych : No Anxiety/Panic, No Depression All other systems reviewed and are negative Yes all other systems are reviewed and are negative [facility] Past Medical History Attestation statement: The following information was validated with the patient. Source: old records reviewed and nursing notes reviewed Medical History Asthma Diabetes Hepatitis A Social History Social History Alcohol intake: never Advance Directives: No Advance Directives Information Provided: Yes Physical Exam ED Vital Signs: Vital Signs - 24 hr 12/02/21 19:46 12/03/21 01:20 Temperature 98.5 F Pulse Rate 92 94 Respiratory Rate 18 14 Blood Pressure 142/75 H 149/84 H Pulse Oximetry 99 95 BMI result Body Mass Index 23.3 Course Reevaluation(s) Reevaluation #1: Patient noted to have a slight leukocytosis, likely reactive Chemistry within elevated glucose, will hydrate and repeat. Lipase within normal limits. Urine without infection. Acetone negative, VBG within normal limits unlikely that this is DKA. Time: 01:48 Reevaluation #2: CT of the abdomen pelvis with no acute findings. Unlikely that this is cholecystitis, appendicitis or pancreatitis. Urine negative. Patient continues to refuse rectal exam. At this time patient will be leaving against medical advice as her primary complaint was rectal bleeding, not allowing rectal exam cannot identify source of bleeding. Advised her to return with new or worsening symptoms. Gave her follow-up information for GI. Patient's H&H stable here in the emergency department 14.4, 43.1, she denies any current active bleeding. Vital signs stable. CT of the abdomen pelvis william jacobson. Gave patient worrisome signs and symptoms and advised her to return if any of these arise Time: 02:14 Reevaluation #3: At time of discharge patient reported to nursing that she feels better. They educated on diagnosis, plan. Repeat blood sugar 152. Time: 02:27 MDM - Abdominal Pain MDM Narrative Medical decision making narrative: 0114 46 year old presents for evaluation of rectal bleeding, epigastric pain with radiation to right upper quadrant X3 days PE significant for pain with palpation to epigastric and right upper quadrant. Lungs. Neuro nonfocal. Patient refusing rectal exam. Unable to obtain OBS because patient refusing. Plan at this time is CT of the abdomen and pelvis, urine, basic labs. Will rule out pancreatitis, cholecystitis. Likely gastritis. Unlikely that this is a lower GI bleed by the way patient describes this she tells me that she had blood 2-3 days ago, unable to do a rectal exam therefore a.m. unable to rule this out however. I explained to patient that this is extremely important. She continues to refuse. Likely GERD or gastritis Medical Records Attestation: I reviewed the patient's medical records. Lab Data Attestation: I reviewed the patient's lab results. Result diagrams: 12/02/21 19:54 12/02/21 19:54 Labs: Lab Results 12/02/21 12/02/21 12/03/21 Range/Units 19:54 19:54 00:36 WBC 12.6 H (4.8-10.8) X10*3/uL RBC 4.85 (4.20-5.50) X10*6/uL Hgb 14.4 (12.0-16.0) g/dl Hct 43.1 (37.0-47.0) % MCV 88.9 (80.0-98.0) fL MCH 29.7 (27.0-33.0) pg MCHC 33.4 (31.0-35.0) g/dl RDW 12.8 (11.0-16.0) % Plt Count 318 (160-400) X10*3/uL MPV 10.2 (9.4-12.3) fL Immature Gran % (Auto) 0.4 (0.0-0.4) % Neut % (Auto) 69.4 (45-73) % Lymph % (Auto) 24.5 (20-40) % [place] % (Auto) 4.9 (2-11) % Eos % (Auto) 0.5 (0-4) % Baso % (Auto) 0.3 (0-2) % Lymph # (Auto) 3.1 (1.2-4.9) X10*3/uL [place] # (Auto) 0.6 (0.1-1.2) X10*3/uL Eos # (Auto) 0.1 (0.0-0.4) X10*3/uL Baso # (Auto) 0.0 (0.0-0.2) X10*3/uL Abs Immat Gran (auto) 0.05 H (0.00-0.03) X10*3/uL Absolute Neuts (auto) 8.7 H (2.0-8.3) x10*3/uL Absolute Nucleated RBC 0.000 (0.0-0.012) X10*3/uL Nucleated RBC % (auto) 0.0 (0.0-0.2) /100WBC VBG pH (7.32-7.43) VBG pCO2 mmHg VBG pO2 mmHg VBG HCO3 (22-26) mmol/L VBG O2 Saturation % VBG Base Excess mmol/L Sodium 138 (135-145) mmol/L Potassium 4.5 (3.3-5.1) mmol/L Chloride 101 (96-108) mmol/L Carbon Dioxide 27 (22-29) mmol/L Anion Gap 15 (12-20) BUN 12 (9-16) mg/dL Creatinine 1.30 (0.5-1.4) mg/dL Estim Creat Clear Calc 49.1 Estimated GFR 44 Random Glucose 382 H* (60-115) mg/dL Calcium 9.7 D (8.4-10.2) mg/dL Lipase 74 (8-78) U/L Beta HCG, Quant 6 mIU/mL Urine Color YELLOW Urine Appearance CLEAR Urine pH 6.5 (5.0-8.0) Ur Specific [place] <= 1.005 (1.005-1.025) Urine Protein NEG (NEG-TRACE) MG/DL Urine Glucose (UA) >=1000 H (NEG) MG/DL Urine Ketones NEG (NEG) MG/DL Urine Blood NEG (NEG) Urine Nitrite NEG (NEG) Ur Leukocyte Esterase NEG (NEG) Urine RBC 0 (0) /HPF Urine WBC 0-2 (0-4) /HPF Ur Squamous Epith Cells 1+ /LPF Urine Bacteria NONE /LPF Urine Yeast 1+ /HPF Acetone, Qual (Negative) 12/03/21 12/03/21 Range/Units 01:28 01:29 WBC (4.8-10.8) X10*3/uL RBC (4.20-5.50) X10*6/uL Hgb (12.0-16.0) g/dl Hct (37.0-47.0) % MCV (80.0-98.0) fL MCH (27.0-33.0) pg MCHC (31.0-35.0) g/dl RDW (11.0-16.0) % Plt Count (160-400) X10*3/uL MPV (9.4-12.3) fL Immature Gran % (Auto) (0.0-0.4) % Neut % (Auto) (45-73) % Lymph % (Auto) (20-40) % [place] % (Auto) (2-11) % Eos % (Auto) (0-4) % Baso % (Auto) (0-2) % Lymph # (Auto) (1.2-4.9) X10*3/uL [place] # (Auto) (0.1-1.2) X10*3/uL Eos # (Auto) (0.0-0.4) X10*3/uL Baso # (Auto) (0.0-0.2) X10*3/uL Abs Immat Gran (auto) (0.00-0.03) X10*3/uL Absolute Neuts (auto) (2.0-8.3) x10*3/uL Absolute Nucleated RBC (0.0-0.012) X10*3/uL Nucleated RBC % (auto) (0.0-0.2) /100WBC VBG pH 7.38 (7.32-7.43) VBG pCO2 41 mmHg VBG pO2 37 mmHg VBG HCO3 25 (22-26) mmol/L VBG O2 Saturation 62.0 % VBG Base Excess 0.2 mmol/L Sodium (135-145) mmol/L Potassium (3.3-5.1) mmol/L Chloride (96-108) mmol/L Carbon Dioxide (22-29) mmol/L Anion Gap (12-20) BUN (9-16) mg/dL Creatinine (0.5-1.4) mg/dL Estim Creat Clear Calc Estimated GFR Random Glucose (60-115) mg/dL Calcium (8.4-10.2) mg/dL Lipase (8-78) U/L Beta HCG, Quant mIU/mL Urine Color Urine Appearance Urine pH (5.0-8.0) Ur Specific [place] (1.005-1.025) Urine Protein (NEG-TRACE) MG/DL Urine Glucose (UA) (NEG) MG/DL Urine Ketones (NEG) MG/DL Urine Blood (NEG) Urine Nitrite (NEG) Ur Leukocyte Esterase (NEG) Urine RBC (0) /HPF Urine WBC (0-4) /HPF Ur Squamous Epith Cells /LPF Urine Bacteria /LPF Urine Yeast /HPF Acetone, Qual Negative (Negative) Critical Care Time Critical Care Time Critical Care Time: No Discharge Plan Discharge Clinical Impression: Abdominal pain, Left against medical advice, GERD (gastroesophageal reflux disease) Patient Disposition: Home, Self-Care Instructions: Diet for Stomach Ulcers and Gastritis (ED), Gastroesophageal Reflux Disease (ED), Abdominal Pain (ED) Additional Instructions: Take your medications as prescribed. If you were prescribed antibiotics today, it is important that you take your medication to their entirety, do not skip any doses, do not finish them early. Follow-up with your primary care provider this week. Follow-up with Gastroe nterology. Return to the emergency department with new or worsening symptoms. Such as fevers, chills, chest pain, shortness of breath, nausea, vomiting, dizziness, headache, vision changes, lethargy In case of emergency call 911 Your leaving against medical advice. You came in for rectal bleeding however refused rectal exam therefore it is very hard to identify source of bleeding. Leaving against medical advice means potential complications include , worsening symptoms, decreased quality of life, infection/sepsis amongst many others. Please return with new or worsening symptoms. Your labs are reassuring, your urine was clean and showed no signs of infection, the CT of the abdomen pelvic looked good. I started you on medication for reflux, please take this in the morning. CT/CT abdomen pelvis wo con IMPRESSION: No acute findings identified in the abdomen/pelvis.? ? Fleischner guidelines were followed. Prescriptions: New omeprazole 10 mg capsule,delayed release(DR/EC) 10 mg PO DAILY Qty: 20 0RF No Action amoxicillin-pot clavulanate [Augmentin] 875-125 mg tablet 1 tab PO BID Qty: 20 0RF metronidazole [Flagyl] 500 mg tablet 500 mg PO TID Qty: 30 0RF dicyclomine 10 mg capsule 10 mg PO BID Qty: 20 0RF prednisone 20 mg tablet 40 mg PO DAILY Qty: 10 0RF codeine-guaifenesin 10-100 mg/5 mL liquid 10 ml PO Q4-6H PRN (Reason: cough) Qty: 237 0RF Referrals: Kim Fox MD [Physician] - 3 days Stand Alone Forms: Against Medical Advice, Work/School Release
[2021-12-03 01:20] VITALS: BP 149/84; PULSE 94; RESP 14; O2SAT 95
[2021-12-03 01:36] LABS: Venous Blood Gas Refer to POC result
[2021-12-03 01:36] LABS: VBG Base Excess 0.2 mmol/L; VBG HCO3 25 mmol/L (22-26); VBG pCO2 41 mmHg; VBG pH 7.38 (7.32-7.43); VBG pO2 37 mmHg
[2021-12-03 01:40] LABS: Acetone, serum QL Negative (Negative)
[2021-12-03] MEDS: 0.9 % Sodium Chloride 1,000 ML 999 ML IV (02:05)
[2021-12-03] MEDS: Ketorolac Tromethamine 15 MG/ML VIAL IVPUSH (02:07)
[2021-12-03] MEDS: Magnesium Hydrox/Alum Hydrox 30 ML ORAL.SUSP PO (02:07)
[2021-12-03] MEDS: Lidocaine HCl Viscous 2 % 15 ML SOLUTION MUCOUS MEM (02:08)
--- NOTE | 2021-12-03 02:09 | PC.NURSE ---
Iv placed in right ac. medicated per mar. Will continue to monitor.
[2021-12-03 02:30] LABS: Glucose, Whole Blood 152 mg/dL (60-115)
[2021-12-03 02:38] VITALS: BP 130/80; PULSE 84; RESP 20; TEMP 36.4; O2SAT 99
== END 2021-12-03 02:45 | disposition home or self-care (01) ==
PROVIDERS: Physician Assistant; Emergency Provider Student in an Organized Health Care Education/Training Program; PCP Physician Assistant Medical
DX: K21.9 Gastro-esophageal reflux disease without esophagitis (principal); R10.11 Right upper quadrant pain; Z79.899 Other long term (current) drug therapy
CPT/HCPCS: 36415; 74176; 80048; 81001; 82009; 82803; 82947; 83690; 84702; 85025; 96361; 96374; 99284; J1885

== ENCOUNTER 2022-03-05 14:34 | Emergency (ER) | payer OTHER, SELFPAY ==
--- NOTE | ~2022-03-05 | XR_ITS ---
EXAMINATION: XR CHEST CLINICAL INFORMATION: Patient tested Covid at home. Cough and shortness of breath. COMPARISON: April 01, 2021 TECHNIQUE: AP portable view of the chest was obtained. FINDINGS: No significant abnormality is noted involving the heart, lungs, mediastinum, bony thorax or soft tissues. XR/XR chest 1V IMPRESSION: No acute disease.
[2022-03-05 14:48] VITALS: BP 119/76; PULSE 94; RESP 16; TEMP 37.4; O2SAT 98; BMI 26.4
[2022-03-05] MEDS: predniSONE 20 MG TABLET 40 MG PO (15:09)
[2022-03-05] MEDS: Cyclobenzaprine HCl 5 MG TABLET PO (15:09)
[2022-03-05] MEDS: guaiFEN/Codeine SF 200/20/10ML 10 ML LIQUID 5 ML PO (15:10)
[2022-03-05 15:22] LABS: Glucose, Whole Blood 324 mg/dL (60-115)
[2022-03-05 15:34] LABS: COVID-19 Test Positive (Negative); IDNOW Serial# 55D5AD1C
--- NOTE | 2022-03-05 16:01 | ED_ITS ---
HPI - Asthma General Chief Complaint: Asthma Stated Complaint: Covid positive Time Seen by Provider: 03/05/22 14:54 Source: patient Mode of arrival: ambulatory Limitations: language barrier (Urdu-speaking) History of Present Illness HPI Narrative: 46-year-old female with a past medical history of diabetes, asthma and hepatitis A she reports she obtain from being on metformin presenting to the ED with complaints of being positive for COVID at home when she tested today with a home test with associated generalized chills, fatigue, malaise, body aches, fevers up to 100.1, loss of taste and smell, nasal congestion/rhinorrhea, sore throat and a dry cough with associated wheezing that started yesterday. She reports that she takes albuterol inhaler and nebulized treatment at home that she took last night and no symptomatic relief. She reports she is vaccinated to COVID. She reports that she normally does not check her blood sugars due to her doctor told her she did not have to check her blood sugar. She reports that she only takes insulin Lantus at nighttime if she took it last night. She denies taking any diabetes medications in the morning. She reports that she takes all her diabetes medications at night and that is how her doctor told her she could. She denies any dizziness, neck pain/stiffness, change in vision, trouble swallowing or breathing, changes in voice, drooling, chest pain or shortness of breath, dyspnea on exertion, orthopnea, palpitations, paresthesias, nausea/vomiting/diarrhea constipation, black or bloody stools, abdominal pain, flank pain, dysuria, hematuria, abnormal vaginal discharge, polyuria/polydipsia, rashes, recent travel or sick contacts that she is aware of. Reports that she did go to a a green party over the weekend on Wednesday. She denies any other symptoms c omplaints or concerns at this time. MD complaint: asthma attack and wheezing Onset (ago): day(s) (2) Severity: moderate Context: none known Associated symptoms: dry cough Asthma History: childhood onset, history of frequent attacks and history of prior ED visit Treatments Prior to Arrival: inhaled bronchodilator Related Data Current Asthma Therapy: inhaled bronchodilator Previous Rx's Medication Instructions Recorded amoxicillin 875 mg-potassium 1 tab PO BID #20 tabs 01/22/21 clavulanate 125 mg tablet (Augmentin) dicyclomine 10 mg capsule 10 mg PO BID #20 caps 01/22/21 metronidazole 500 mg tablet 500 mg PO TID #30 tabs 01/22/21 (Flagyl) codeine 10 mg-guaifenesin 100 mg/5 10 ml PO Q4-6H PRN cough #237 mL 04/01/21 mL oral liquid prednisone 20 mg tablet 40 mg PO DAILY #10 tabs 04/01/21 omeprazole 10 mg capsule,delayed 10 mg PO DAILY #20 caps 12/03/21 release albuterol sulfate 0.63 mg/3 mL 0.63 mg (3 mL) inhalation QID PRN 03/05/22 solution for nebulization shortness of breath or wheezing #75 mL albuterol sulfate 90 mcg/actuation 1 inh inhalation QID PRN shortness 03/05/22 aerosol inhaler of breath or wheezing #8.5 grams prednisone 20 mg tablet 20 mg PO DAILY 5 days #5 tabs 03/05/22 Allergies Allergy/AdvReac Type Severity Reaction Status Date / Time ciprofloxacin [From CIPRO] Allergy Intermediate RASH Verified 03/05/22 14:51 Sulfa (Sulfonamide Allergy Intermediate RASH Verified 03/05/22 14:51 Antibiotics) [SULFA (SULFONAMIDE ANTIBIOTICS)] sulfamethoxazole Allergy Unknown SWELLING Verified 03/05/22 14:51 [From SEPTRA] trimethoprim [From APRRA] Allergy Unknown SWELLING Verified 03/05/22 14:51 SEAFOOD Allergy Severe ANAPHYLAXIS Uncoded 03/05/22 14:51 Review of Systems Review of Systems: Constitutional : denies med noncompliance, no history of PE or DVT, denies recent travel, + Fever, + Chills, + fatigue/malaise ENT/Mouth : No Hoarseness, + sore throat, + Rhinorrhea, + Nasal congestion, No Sinus Pressure, No Ear Pain, No stridor, Eyes: No Redness, No Discharge, No Vision Changes Cardiovascular : No Chest Pain, No SOB, No Dyspnea on Exertion, No Edema, no pleurisy, Respiratory : + Cough, + wheezing, No Sputum, no stridor, no hemoptysis, Gastrointestinal : No Nausea, No Vomiting, No Diarrhea, No abdominal Pain Genitourinary : No Dysuria, No Hematuria Musculoskeletal : No joint pain/swelling, + Myalgias Extremities: no extremity swelling /pain Skin : No rash, no itching, no swelling Neuro : No Weakness, No Numbness, No Headache, No Dizziness, No Paresthesias Psych : No anxiety, depression Heme/Lymph: No Bruising, No Bleeding Endocrine : No Polyuria, No Polydipsia Yes all other systems are reviewed and are negative [facility] Past Medical History Attestation statement: The following information was validated with the patient. Source: old records reviewed and nursing notes reviewed Medical History Asthma Diabetes Hepatitis A Social History Social History Alcohol intake: never Advance Directives: No Advance Directives Information Provided: Yes Physical Exam Vital Signs: Vital Signs: Last Vital Signs Temp 99.4 F 03/05/22 14:48 Pulse 94 03/05/22 16:04 Resp 16 03/05/22 16:04 BP 119/76 03/05/22 14:48 Pulse Ox 98 03/05/22 14:48 O2 Del Method 03/05/22 14:48 BMI result Body Mass Index 26.4 vital signs have been reviewed Blood pressure normal. Heart rate normal. Respiration normal. Oxygen saturation normal. Appearance: Alert. Oriented X3. No acute distress. Head: Normal external exam. Normocephalic. Atraumatic. Eyes: PERRLA. EOMI. Conjunctiva and sclera normal. Eyelids normal. ENT: EAC normal. TM's Normal. Pharynx normal. Uvula midline. Moist mucous membranes. No trismus noted. No drooling noted. No muffled voice noted. No stridor noted. Patient tolerating secretions well. Neck: Normal inspection. Neck supple. FROM. No adenopathy. Thyroid Normal. No meningeal signs. No neck mass noted. CVS: Normal heart rate and rhythm. Heart sound normal. Pulses normal throughout. No murmurs/rales/gallops. Respiratory: No respiratory distress. Painless inspiration. Decreased breath sounds with expiratory wheezing at the bases. No rales/rhonchi noted. Chest is nontender. No accessory muscle use is noted. Normal chest excursions. No abdominal retractions or tracheal tugging noted. Abdomen: Soft and nontender. Bowel sounds normal in all 4 quadrants. No distention noted. No organomegaly noted. No visible injury noted. Back: No CVA tenderness. Full range of motion noted. No rashes/lesion/induration/fluctuance or signs of infection noted. Skin: Skin warm and dry. Normal skin color. Normal skin turgor. No rashes/lesions/lacerations noted. Extremities: No lower extremity edema. Extremities exhibit normal range of motion. Extremities nontender. Neuro: Oriented X 3. No motor deficit. No sensory deficit. Reflexes normal. Normal steady gait. No focal neuro deficits noted. Vascular: + radial pulses/+ 2 distal pedal pulses/+2 dorsalis pedis b/l. Normal cap refill. No cyanosis noted to upper extremity nails and lower extremity toes nails. Course Course Course Narrative: 15pm - 46-year-old female with a past medical history of diabetes, asthma and hepatitis A she reports she obtain from being on metformin presenting to the ED with complaints of being positive for COVID at home when she tested today with a home test with associated generalized chills, fatigue, malaise, body aches, fevers up to 100.1, loss of taste and smell, nasal congestion/rhinorrhea, sore throat and a dry cough with associated wheezing that started yesterday. She reports that she takes albuterol inhaler and nebulized treatment at home that she took last night and no symptomatic relief. She reports she is vaccinated to COVID. She reports that she normally does not check her blood sugars due to her doctor told her she did not have to check her blood sugar. She reports that she only takes insulin Lantus at nighttime if she took it last night. She denies taking any diabetes medications in the morning. She reports that she takes all her diabetes medications at night and that is how her doctor told her she could. Reports that she did go to a a green party over the weekend on Wednesday. I reviewed the patient's medication list and it appears that the patient is prescribed glipizide 10 mg she is supposed to take this twice a day although patient reports that her doctor told her she did not want to take a she did not have to and she reports she has not taken this in months. She is prescribed Jardiance 10 mg and on her med rec list it appears that she is supposed to be taking this in the morning although she reports she is not taking this and morning she is taking at night and it is actually 25 mg. She reports she did not take any p.o. diabetes medications this morning she took some last night along with her insulin. Plan: Will check the patient's blood sugar. Repeat the patient's COVID swab. Obtain a chest x-ray. Provide a breathing treatment. And 40 mg of prednisone and re-evaluate. Reevaluation(s) Reevaluation #1: - patient positive for COVID. Chest x-ray negative. Blood glucose 324. I did offer the patient to give her IV fluids and insulin although patient reports she just wants to go home due to she has medications at home and she knows had a check her blood sugar and give herself her insulin and take her medications as prescribed therefore educated her that she has to take her medications in the morning as prescribed to help her blood glucose level. She understands agrees with this plan. I told her specially if I am going to be giving her steroids. Therefore at this time will referred for monoclonal therapy at [facility] referral form was sent. Will also send home with a course of steroids and albuterol inhaler and symptomatic relief and instructions return if any new or worsening symptoms. Patient understands agrees with this plan. Along to self isolate per CDC guidelines. Time: 16:56 [facility] - Asthma Medical Records Attestation: I reviewed the patient's medical records. Lab Data Attestation: I reviewed the patient's lab results. Labs: Lab Results 03/05/22 03/05/22 Range/Units 15:08 15:14 POC Glucose 324 H (60-115) mg/dL COVID-19 (RAGINI) Positive A (Negative) COVID-19 Clin Com See Note Imaging Data Chest x-ray: Attestation: I personally reviewed and interpreted this imaging study as follows: Radiologist's impression: FINDINGS: No significant abnormality is noted involving the heart, lungs, mediastinum, bony thorax or soft tissues. XR/XR chest 1V IMPRESSION: No acute disease. Discharge Plan Discharge Clinical Impression: Asthma with acute exacerbation, COVID-19, Acute hyperglycemia Patient Disposition: Home, Self-Care Instructions: Asthma (ED), Diabetic Hyperglycemia (ED), COVID-19 (Coronavirus Disease 2019) (ED) Additional Instructions: Please self isolate per CDC guidelines. Take your medications especially her diabetes medication as prescribed if they are supposed to be taking in the morning please take them in the morning not at nighttime this is very important specially for your diabetes and your sugar to be controlled. Return if any new or worsening symptoms. Monitor your oxygen levels. Self isolate per CDC guidelines. He will be receiving a call for monoclonal antibody therapy for your COVID. Por favor, a?slese de acuerdo con las pautas de los [facility]. Justice lashonda medicamentos, especialmente lashonda medicamentos para la diabetes seg?n lo prescrito, si se supone que deben tomarlos por la ma?tico, t?melos por la ma?tico, no por la noche, esto es muy importante, especialmente para que merlos diabetes y merlos az?car rico controlados. Regrese si hay s?ntomas nuevos o que empeoran. Controle lashonda niveles de ox?lacy. Autoaislamiento seg?n las pautas de los [facility]. Recibir? kelsea llamada para la terapia de anticuerpos monoclonales para merlos COVID. Prescriptions: New albuterol sulfate 0.63 mg/3 mL solution for nebulization 0.63 mg inhalation QID PRN (Reason: shortness of breath or wheezing) Qty: 75 0RF albuterol sulfate 90 mcg/actuation HFA aerosol inhaler 1 inh inhalation QID PRN (Reason: shortness of breath or wheezing) Qty: 8.5 0RF prednisone 20 mg tablet 20 mg PO DAILY 5 Days Qty: 5 0RF No Action amoxicillin-pot clavulanate [Augmentin] 875-125 mg tablet 1 tab PO BID Qty: 20 0RF metronidazole [Flagyl] 500 mg tablet 500 mg PO TID Qty: 30 0RF dicyclomine 10 mg capsule 10 mg PO BID Qty: 20 0RF prednisone 20 mg tablet 40 mg PO DAILY Qty: 10 0RF codeine-guaifenesin 10-100 mg/5 mL liquid 10 ml PO Q4-6H PRN (Reason: cough) Qty: 237 0RF omeprazole 10 mg capsule,delayed release(DR/EC) 10 mg PO DAILY Qty: 20 0RF Referrals: Jayashree Quick PA [Primary Care Provider] - 2 days Stand Alone Forms: Work/School Release Print Language: Urdu
[2022-03-05 16:04] VITALS: PULSE 94; RESP 16; O2SAT 98
[2022-03-05] MEDS: Empagliflozin 25 MG TABLET PO (16:50)
== END 2022-03-05 17:18 | disposition home or self-care (01) ==
PROVIDERS: Physician Assistant Medical; Emergency Provider Emergency Medicine; PCP Physician Assistant Medical
DX: U07.1 COVID-19 (principal); J45.901 Unspecified asthma with (acute) exacerbation; E11.65 Type 2 diabetes mellitus with hyperglycemia
CPT/HCPCS: 71045; 82947; 87635; 94640; 99284

== ENCOUNTER 2022-05-28 18:01 | Emergency (ER) | payer OTHER, SELFPAY ==
--- NOTE | ~2022-05-28 | CT_ITS ---
EXAMINATION: CT ABDOMEN AND PELVIS WITHOUT CONTRAST CLINICAL INFORMATION: Abdominal pain, history of colitis COMPARISON: CT abdomen pelvis 12/03/[address] abdomen pelvis 01/22/2021 TECHNIQUE: Multidetector volumetric imaging was performed from the superior aspect of the liver through the pubic symphysis. Sagittal and coronal reformatted images were obtained on the technologist's workstation. This CT examination was performed using dose optimization techniques as appropriate, variously including the following: *Automated exposure control *Adjustment of mA and/or kV according to patient size (this includes techniques or standardized protocols for targeted exams where dose is matched to indication/reason for exam; i.e. extremities or head) *Use of iterative reconstruction technique DLP: 493 mGy-cm FINDINGS: LUNG BASES: Unremarkable. ABDOMINAL AND PELVIC WALL: Unremarkable. LIVER AND BILIARY TREE: Hypoattenuating hepatic parenchyma suggesting hepatic steatosis. Liver is enlarged measuring 20.9 cm in span. GALLBLADDER: Unremarkable. PANCREAS: Unremarkable. SPLEEN: Unremarkable. ADRENAL GLANDS: Stable right adrenal nodule which measures 1.1 cm with intrinsically low attenuation less than 10 Hounsfield units compatible with an adrenal adenoma unchanged from 202. Stable indeterminate left adrenal nodule measuring 1.9 cm unchanged from 202 therefore likely benign such as an adrenal adenoma. No further follow up imaging recommended. KIDNEYS AND URETERS: Unremarkable. GASTROINTESTINAL TRACT: Small hiatal hernia. Colonic diverticulosis without evidence of diverticulitis. Few mildly thick-walled loops of small bowel in the central abdomen, recommend correlation with symptoms of enteritis. Normal appendix. VASCULAR: Unremarkable. LYMPH NODES/PERITONEUM: No lymphadenopathy. FREE FLUID: None. BLADDER: Unremarkable. PELVIC VISCERA: Status post hysterectomy. OSSEOUS STRUCTURES: Unremarkable. CT/CT abdomen pelvis wo IV con IMPRESSION: 1. Few mildly thick-walled loops of small bowel in the central abdomen, recommend correlation with symptoms of enteritis. 2. Hepatomegaly and hepatic steatosis.
[2022-05-28 18:04] VITALS: BP 155/100; PULSE 96; RESP 20; TEMP 36.8; O2SAT 99; BMI 26.1
[2022-05-28 18:11] VITALS: BP 114/63; PULSE 87; O2SAT 96
[2022-05-28 19:56] LABS: MANUAL DIFF FLAG NO
[2022-05-28 20:04] LABS: Basophils Percent Auto 0.4 % (0-2); Eosinophils Absolute Auto 0.1 X10*3/uL (0.0-0.4); Eosinophils Percent Auto 0.9 % (0-4); Hematocrit 45.3 % (37.0-47.0); Imm Gran Abs Auto 0.04 X10*3/uL (0.00-0.03); Imm Gran Pct Auto 0.4 % (0.0-0.4); Lymphocytes Absolute Auto 2.4 X10*3/uL (1.2-4.9); Lymphocytes Percent Auto 23.1 % (20-40); Mean Corpuscular HGB Conc 33.1 g/dl (31.0-35.0); Mean Corpuscular Hemoglobin 29.3 pg (27.0-33.0); Mean Corpuscular Volume 88.5 fL (80.0-98.0); Monocytes Absolute Auto 0.6 X10*3/uL (0.1-1.2); Monocytes Percent Auto 5.8 % (2-11); Neutrophils Absolute Auto 7.3 x10*3/uL (2.0-8.3); Neutrophils Percent Auto 69.4 % (45-73); Platelet Count 321 X10*3/uL (160-400); Red Blood Count 5.12 X10*6/uL (4.20-5.50); Red Cell Distribution Width 13.5 % (11.0-16.0); White Blood Count 10.5 X10*3/uL (4.8-10.8)
[2022-05-28 20:18] LABS: COVID-19 Test Negative (Negative)
[2022-05-28 20:23] LABS: Appearance Urine Clear; Color Urine Yellow; Glucose Urine UA >=1000 mg/dL (Negative); Leukocyte Esterase Urine Negative (Negative); Nitrite Urine Negative (Negative); PH 6.5 (5.0-9.0); UMIC TRIGGER UACC YES; Urine Blood Negative (Negative); Urine Ketones Negative (Negative); Urine Protein Negative (Neg-Trace)
[2022-05-28 20:27] LABS: Alanine Aminotransferase 67 U/L (0-31); Albumin Level 4.5 g/dL (3.5-5.0); Alkaline Phosphatase 133 U/L (39-117); Anion Gap 18 (12-20); Aspartate Amino Transferase 26 U/L (5-31); Bilirubin Total 0.2 mg/dL (0.0-1.0); Blood Urea Nitrogen 13 mg/dL (9-16); Calcium 9.8 mg/dL (8.4-10.2); Carbon Dioxide 26 mmol/L (22-29); Chloride 103 mmol/L (96-108); Creatinine Clr Calc Pharmacy 78.1; Estimated Glomerular Filt Rate > 60; Glucose Random 251 mg/dL (60-115); Potassium 4.5 mmol/L (3.3-5.1); Sodium 142 mmol/L (135-145)
[2022-05-28 20:29] LABS: UPreg QC Valid YES; Urine Pregnancy NEGATIVE (NEGATIVE)
--- NOTE | 2022-05-28 21:03 | ED.ABDPAIN ---
HPI - Abdominal Pain General Chief Complaint: Abdominal Pain Stated Complaint: stomach pain Time Seen by Provider: 05/28/22 21:02 Source: patient and EMS Mode of arrival: EMS Limitations: no limitations History of Present Illness HPI narrative: 47-year-old female presents with 1 day of abdominal pain, nausea, vomiting and diarrhea. Patient has a history of colitis, and feels that this pain is similar to prior presentations. Patient reports that her child was diagnosed with COVID yesterday. She does not report chest pain or pressure, cough, abdominal distention, melena, hematochezia, fevers or chills. MD elicited complaint: abdominal pain Onset (ago): day(s) (1) Pain Consistency: constant Location: diffuse Severity: moderate Quality: cramping Radiation: none Exacerbating factors: eating, vomiting and movement Context: sick contacts Associated symptoms: nausea, vomiting and diarrhea Related Data Previous Rx's Medication Instructions Recorded amoxicillin 875 mg-potassium 1 tab PO BID #20 tabs 01/22/21 clavulanate 125 mg tablet (Augmentin) dicyclomine 10 mg capsule 10 mg PO BID #20 caps 01/22/21 metronidazole 500 mg tablet 500 mg PO TID #30 tabs 01/22/21 (Flagyl) codeine 10 mg-guaifenesin 100 mg/5 10 ml PO Q4-6H PRN cough #237 mL 04/01/21 mL oral liquid prednisone 20 mg tablet 40 mg PO DAILY #10 tabs 04/01/21 omeprazole 10 mg capsule,delayed 10 mg PO DAILY #20 caps 12/03/21 release albuterol sulfate 0.63 mg/3 mL 0.63 mg (3 mL) inhalation QID PRN 03/05/22 solution for nebulization shortness of breath or wheezing #75 mL albuterol sulfate 90 mcg/actuation 1 inh inhalation QID PRN shortness 03/05/22 aerosol inhaler of breath or wheezing #8.5 grams prednisone 20 mg tablet 20 mg PO DAILY 5 days #5 tabs 03/05/22 amoxicillin 875 mg-potassium 1 tab PO Q12H 7 days #14 tabs 05/29/22 clavulanate 125 mg tablet metronidazole 500 mg tablet 500 mg PO Q8H 7 days #21 tabs 05/29/22 ondansetron 4 mg disintegrating 4 mg PO Q8H PRN nausea and 05/29/22 tablet vomiting #14 tabs oxycodone 5 mg tablet 5 mg PO Q8H PRN pain #7 tabs 05/29/22 Allergies Allergy/AdvReac Type Severity Reaction Status Date / Time ciprofloxacin [From CIPRO] Allergy Intermediate RASH Verified 05/28/22 18:13 Sulfa (Sulfonamide Allergy Intermediate RASH Verified 05/28/22 18:13 Antibiotics) [SULFA (SULFONAMIDE ANTIBIOTICS)] sulfamethoxazole Allergy Unknown SWELLING Verified 05/28/22 18:13 [From ] trimethoprim [From ] Allergy Unknown SWELLING Verified 05/28/22 18:13 SEAFOOD Allergy Severe ANAPHYLAXIS Uncoded 03/05/22 14:51 Review of Systems Review of Systems Constitutional: No Fever, No Chills ENT/Mouth: No Ear Pain, No Hoarseness, No sore throat Eyes: No Eye Pain, No Swelling, No Redness, No Foreign Body Cardiovascular: No Chest Pain, No SOB Respiratory: No Cough, No Dyspnea Gastrointestinal: Positive Nausea, positive Vomiting, positive Diarrhea, positive abdominal Pain Genitourinary: No Dysuria, No Hematuria Musculoskeletal: No joint pain, No Myalgias, No Joint Swelling Skin: No Skin lacerations, No rash Neuro: No Weakness, No Numbness, No Paresthesias, No Loss of Consciousness, No Dizziness, No Headache Psych: No Anxiety/Panic, No Depression Heme/Lymph: no easy bruising, no Lymphadenopathy Endocrine: No Polyuria, No Polydipsia Yes all other systems are reviewed and are negative PMFSH Past Medical History Attestation statement: The following information was validated with the patient. Source: old records reviewed Medical History Asthma Diabetes Hepatitis A Social History Social History Alcohol intake: never Advance Directives: No Advance Directives Information Provided: Yes Physical Exam ED Vital Signs: Vital Signs - 24 hr 05/28/22 18:04 Temperature 98.2 F Pulse Rate 96 Respiratory Rate 20 Blood Pressure 155/100 H Pulse Oximetry 99 Oxygen Delivery Method Room Air BMI result Body Mass Index 26.1 Appearance: Alert. Oriented X3. Moderate distress. Appears tired. Eyes: Pupils equal, round and reactive to light. Sclera nonicteric. ENT: Pharynx normal. Neck: Normal inspection. Neck supple. CVS: Normal heart rate and rhythm. Pulses normal. Respiratory: No respiratory distress. Breath sounds normal. Abdomen: Soft and diffusely tender. No CVA tenderness. No rigidity or rebound. Skin: Skin warm and dry. Normal skin color. Normal skin turgor. Extremities: No lower extremity edema. Gait well-balanced well coordinated. Neuro: No motor deficit. No sensory deficit. Cranial nerves 2-12 intact. Course Course Course Narrative: 47-year-old female with past medical history of hepatitis, diabetes, asthma, presents for 1 day of abdominal pain, nausea, vomiting, diarrhea and has had positive COVID contacts. Patient has a history of colitis, and states that her pain and presentation is similar to prior. Patient appears tired, has a diffusely tender abdomen without rebound or rigidity. Labs are unremarkable, does have an elevated ALT and alk phos. Urinalysis is negative, COVID test is negative. Will order CT scan of abdomen pelvis. CT abdomen pelvis indicates enteritis. Will treat with Augmentin as patient is allergic to ciprofloxacin, give Flagyl, Zofran and oxycodone for pain management. Patient understands signs and symptoms indicating need for emergent intervention, verbalizes understanding of discharge instructions. 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 Google translate utilized for discharge instructions. MDM - Abdominal Pain Differential Diagnosis Differential diagnosis: Likely abdominal pain, acute appendicitis, calculus of kidney, constipation, diverticulitis, gastroenteritis, gastritis and pancreatitis Medical Records Attestation: I reviewed the patient's medical records. Lab Data Attestation: I reviewed the patient's lab results. Result diagrams: 05/28/22 19:51 05/28/22 19:51 Labs: Lab Results 05/28/22 05/28/22 05/28/22 Range/Units 19:51 19:51 19:51 WBC 10.5 (4.8-10.8) X10*3/uL RBC 5.12 (4.20-5.50) X10*6/uL Hgb 15.0 (12.0-16.0) g/dl Hct 45.3 (37.0-47.0) % MCV 88.5 (80.0-98.0) fL MCH 29.3 (27.0-33.0) pg MCHC 33.1 (31.0-35.0) g/dl RDW 13.5 (11.0-16.0) % Plt Count 321 (160-400) X10*3/uL MPV 10.0 (9.4-12.3) fL Immature Gran % (Auto) 0.4 (0.0-0.4) % Neut % (Auto) 69.4 (45-73) % Lymph % (Auto) 23.1 (20-40) % [place] % (Auto) 5.8 (2-11) % Eos % (Auto) 0.9 (0-4) % Baso % (Auto) 0.4 (0-2) % Lymph # (Auto) 2.4 (1.2-4.9) X10*3/uL [place] # (Auto) 0.6 (0.1-1.2) X10*3/uL Eos # (Auto) 0.1 (0.0-0.4) X10*3/uL Baso # (Auto) 0.0 (0.0-0.2) X10*3/uL Abs Immat Gran (auto) 0.04 H (0.00-0.03) X10*3/uL Absolute Neuts (auto) 7.3 (2.0-8.3) x10*3/uL Absolute Nucleated RBC 0.000 (0.0-0.012) X10*3/uL Nucleated RBC % (auto) 0.0 (0.0-0.2) /100WBC Sodium 142 (135-145) mmol/L Potassium 4.5 (3.3-5.1) mmol/L Chloride 103 (96-108) mmol/L Carbon Dioxide 26 (22-29) mmol/L Anion Gap 18 (12-20) BUN 13 (9-16) mg/dL Creatinine 0.89 (0.5-1.4) mg/dL Estim Creat Clear Calc 78.1 Estimated GFR > 60 Random Glucose 251 H (60-115) mg/dL Calcium 9.8 (8.4-10.2) mg/dL Total Bilirubin 0.2 (0.0-1.0) mg/dL AST 26 (5-31) U/L ALT 67 H (0-31) U/L Alkaline Phosphatase 133 H D (39-117) U/L Total Protein 8.0 (6.5-8.0) g/dL Albumin 4.5 (3.5-5.0) g/dL Urine Color Urine Appearance Urine pH (5.0-9.0) Ur Specific [place] (1.005-1.025) Urine Protein (Neg-Trace) mg/dL Urine Glucose (UA) (Negative) mg/dL Urine Ketones (Negative) mg/dL Urine Blood (Negative) Urine Nitrite (Negative) Ur Leukocyte Esterase (Negative) Urine RBC (0-2) /HPF Urine WBC (0-5) /HPF Ur Squamous Epith Cells (0-2) /HPF Urine Bacteria (None Seen) Hyaline Casts (0-2) /LPF Urine Test (NEGATIVE) COVID-19 (RAGINI) Negative (Negative) COVID-19 Clin Com See Note 05/28/22 05/28/22 Range/Units 20:17 20:17 WBC (4.8-10.8) X10*3/uL RBC (4.20-5.50) X10*6/uL Hgb (12.0-16.0) g/dl Hct (37.0-47.0) % MCV (80.0-98.0) fL MCH (27.0-33.0) pg MCHC (31.0-35.0) g/dl RDW (11.0-16.0) % Plt Count (160-400) X10*3/uL MPV (9.4-12.3) fL Immature Gran % (Auto) (0.0-0.4) % Neut % (Auto) (45-73) % Lymph % (Auto) (20-40) % [place] % (Auto) (2-11) % Eos % (Auto) (0-4) % Baso % (Auto) (0-2) % Lymph # (Auto) (1.2-4.9) X10*3/uL [place] # (Auto) (0.1-1.2) X10*3/uL Eos # (Auto) (0.0-0.4) X10*3/uL Baso # (Auto) (0.0-0.2) X10*3/uL Abs Immat Gran (auto) (0.00-0.03) X10*3/uL Absolute Neuts (auto) (2.0-8.3) x10*3/uL Absolute Nucleated RBC (0.0-0.012) X10*3/uL Nucleated RBC % (auto) (0.0-0.2) /100WBC Sodium (135-145) mmol/L Potassium (3.3-5.1) mmol/L Chloride (96-108) mmol/L Carbon Dioxide (22-29) mmol/L Anion Gap (12-20) BUN (9-16) mg/dL Creatinine (0.5-1.4) mg/dL Estim Creat Clear Calc Estimated GFR Random Glucose (60-115) mg/dL Calcium (8.4-10.2) mg/dL Total Bilirubin (0.0-1.0) mg/dL AST (5-31) U/L ALT (0-31) U/L Alkaline Phosphatase (39-117) U/L Total Protein (6.5-8.0) g/dL Albumin (3.5-5.0) g/dL Urine Color Yellow Urine Appearance Clear Urine pH 6.5 (5.0-9.0) Ur Specific [place] 1.010 (1.005-1.025) Urine Protein Negative (Neg-Trace) mg/dL Urine Glucose (UA) >=1000 H (Negative) mg/dL Urine Ketones Negative (Negative) mg/dL Urine Blood Negative (Negative) Urine Nitrite Negative (Negative) Ur Leukocyte Esterase Negative (Negative) Urine RBC 0-2 (0-2) /HPF Urine WBC 0-5 (0-5) /HPF Ur Squamous Epith Cells 3-5 (0-2) /HPF Urine Bacteria None Seen (None Seen) Hyaline Casts 0-2 (0-2) /LPF Urine Test NEGATIVE (NEGATIVE) COVID-19 (RAGINI) (Negative) COVID-19 Clin Com Imaging Data CT scan - abdomen: Attestation: I personally reviewed and interpreted this imaging study as follows: Radiologist's impression: EXAMINATION: CT ABDOMEN AND PELVIS WITHOUT CONTRAST? CLINICAL INFORMATION: Abdominal pain, history of colitis? COMPARISON: CT abdomen pelvis 12/03/[address] abdomen pelvis 01/22/2021 TECHNIQUE: Multidetector volumetric imaging was performed from the superior aspect of the liver through the pubic symphysis. Sagittal and coronal reformatted images were obtained on the technologist's workstation.? This CT examination was performed using dose optimization techniques as appropriate, variously including the following: *Automated exposure control *Adjustment of mA and/or kV according to patient size (this includes techniques or standardized protocols for targeted exams where dose is matched to indication/reason for exam; i.e. extremities or head) *Use of iterative reconstruction technique DLP: 493 mGy-cm FINDINGS: LUNG BASES: Unremarkable.? ABDOMINAL AND PELVIC WALL:? Unremarkable.? LIVER AND BILIARY TREE: Hypoattenuating hepatic parenchyma suggesting hepatic steatosis. Liver is enlarged measuring 20.9 cm in span.? GALLBLADDER: Unremarkable.? PANCREAS: Unremarkable.? SPLEEN: Unremarkable.? ADRENAL GLANDS: Stable right adrenal nodule which measures 1.1 cm with intrinsically low attenuation less than 10 Hounsfield units compatible with an adrenal adenoma unchanged from 2020. Stable indeterminate left adrenal nodule measuring 1.9 cm unchanged from 2020 therefore likely benign such as an adrenal adenoma. No further follow up imaging recommended. KIDNEYS AND URETERS: Unremarkable.? GASTROINTESTINAL TRACT: Small hiatal hernia. Colonic diverticulosis without evidence of diverticulitis. Few mildly thick-walled loops of small bowel in the central abdomen, recommend correlation with symptoms of enteritis.? Normal appendix. VASCULAR: Unremarkable. LYMPH NODES/PERITONEUM: No lymphadenopathy. FREE FLUID: None. BLADDER: Unremarkable.? PELVIC VISCERA: Status post hysterectomy. OSSEOUS STRUCTURES: Unremarkable.? CT/CT abdomen pelvis wo IV con IMPRESSION: 1.? Few mildly thick-walled loops of small bowel in the central abdomen, recommend correlation with symptoms of enteritis. 2.? Hepatomegaly and hepatic steatosis. ? Discharge Plan Discharge Clinical Impression: Enteritis, Abdominal pain, Fatty liver Patient Disposition: Home, Self-Care Instructions: Abdominal Pain (ED), Enteritis (ED), Non-Alcoholic Fatty Liver Disease (ED) Additional Instructions: Se le evalu? por dolor abdominal, n?useas y v?mitos. La tomograf?a computarizada del abdomen y la pelvis indica enteritis. Kenel Augmentin y Flagyl seg?n las indicaciones. No erika alcohol mientras tavia Flagyl. Por favor, liane un seguimiento con merlos m?dico de atenci?n primaria para el agrandamiento del h?gado. Kenel oxicodona seg?n sea necesario para controlar el dolor. Mikaela medicamento es un narc?marcel y tiene un alto riesgo de adicci?n y abuso. No conduzca ni maneje maquinaria mientras tavia mikaela medicamento. Los medicamentos pueden retrasar el tiempo de reacci?n, aumentar el riesgo de ca?morgan, causar somnolencia y estre?imiento. Erika muchos l?quidos, considere gerald MiraLax y merlos Colace para ayudar a ablandar las heces. Seguimiento con el proveedor de atenci?n primaria esta semana David por elegir mikaela departamento de emergencias para merlos evaluaci?n. Por favor, liane un seguimiento con el m?dico de atenci?n primaria seg?n sea necesario. Regrese al departamento de emergencias por cualquier s?ntoma nuevo, preocupante o que empeore. You were evaluated for abdominal pain, nausea, and vomiting. CT scan of abdomen and pelvis indicates enteritis. Please take Augmentin and Flagyl as directed. Do not drink alcohol while taking Flagyl. Please follow-up with your primary care physician for enlarged liver. Take oxycodone as needed for pain management. This medication is a narcotic and has high risk for addiction and abuse. Do not drive or operate machinery while taking this medication. Medication can delay reaction time, increased risk falls, cause drowsiness, and constipation. Drink plenty of fluids, consider taking MiraLax and her Colace to help soften stools. Follow-up with primary care provider this week Thank you for choosing this emergency department for evaluation. Please follow-up with primary care physician as needed. Return to the emergency department for any new, concerning, or worsening symptoms. Prescriptions: New amoxicillin-pot clavulanate 875-125 mg tablet 1 tab PO Q12H 7 Days Qty: 14 0RF metronidazole 500 mg tablet 500 mg PO Q8H 7 Days Qty: 21 0RF oxycodone 5 mg tablet 5 mg PO Q8H PRN (Reason: pain) Qty: 7 0RF Rx Instructions: Partial Fill upon patient request. ondansetron 4 mg tablet,disintegrating 4 mg PO Q8H PRN (Reason: nausea and vomiting) Qty: 14 0RF No Action amoxicillin-pot clavulanate [Augmentin] 875-125 mg tablet 1 tab PO BID Qty: 20 0RF metronidazole [Flagyl] 500 mg tablet 500 mg PO TID Qty: 30 0RF dicyclomine 10 mg capsule 10 mg PO BID Qty: 20 0RF prednisone 20 mg tablet 40 mg PO DAILY Qty: 10 0RF codeine-guaifenesin 10-100 mg/5 mL liquid 10 ml PO Q4-6H PRN (Reason: cough) Qty: 237 0RF omeprazole 10 mg capsule,delayed release(DR/EC) 10 mg PO DAILY Qty: 20 0RF albuterol sulfate 0.63 mg/3 mL solution for nebulization 0.63 mg inhalation QID PRN (Reason: shortness of breath or wheezing) Qty: 75 0RF albuterol sulfate 90 mcg/actuation HFA aerosol inhaler 1 inh inhalation QID PRN (Reason: shortness of breath or wheezing) Qty: 8.5 0RF prednisone 20 mg tablet 20 mg PO DAILY 5 Days Qty: 5 0RF Referrals: Jayashree Quick PA [Primary Care Provider] - 1 week (Enteritis) Interventions: ED Discharge Assessment Last Done: 05/29/22 01:21
[2022-05-28 21:22] LABS: Bacteria Urine None Seen (None Seen); Hyaline Casts Urine 0-2 /LPF (0-2); RBC Urine 0-2 /HPF (0-2); WBC Urine 0-5 /HPF (0-5)
[2022-05-29] MEDS: ondansetron HCL 4 MG/2 ML VIAL IVPUSH (00:19)
[2022-05-29] MEDS: Morphine Sulfate 4 MG/ML CARTRIDGE IVPUSH (00:19)
[2022-05-29] MEDS: metroNIDAZOLE 500 MG TABLET PO (00:20)
[2022-05-29] MEDS: Amoxicillin/Potassium Clav 875 MG TABLET PO (00:20)
[2022-05-29 01:13] VITALS: BP 155/80; PULSE 88; RESP 16; O2SAT 98
== END 2022-05-29 01:22 | disposition home or self-care (01) ==
PROVIDERS: Emergency Provider Emergency Medicine; PCP Physician Assistant Medical
DX: R10.13 Epigastric pain (principal); K76.0 Fatty (change of) liver, not elsewhere classified; Z20.822 Contact with and (suspected) exposure to COVID-19; Z79.899 Other long term (current) drug therapy
CPT/HCPCS: 36415; 74176; 80053; 81001; 81025; 85025; 87635; 96374; 96375; 99283; 99284; J2270; J2405

== ENCOUNTER 2022-06-10 13:18 | Emergency (ER) | payer OTHER, SELFPAY ==
--- NOTE | ~2022-06-10 | US_ITS ---
EXAMINATION: US VENOUS ULTRASOUND WITH DOPPLER LOWER EXTREMITY, BILATERAL CLINICAL INFORMATION: Bilateral calf vein. COMPARISON: None TECHNIQUE: Ultrasound of the deep veins is performed from the hip to the calf with compression sonography and color and pulse Doppler assessment. Spectral analysis with color-flow imaging is performed. FINDINGS: RIGHT: There is normal venous compression and respiratory variation and augmented flow. The visualized common femoral vein, superficial femoral vein, profunda femoral vein, popliteal vein, and the trifurcation region shows no evidence of deep venous thrombosis. No popliteal cyst. The subcutaneous soft tissues are unremarkable. LEFT: There is normal venous compression and respiratory variation and augmented flow. The visualized common femoral vein, superficial femoral vein, profunda femoral vein, popliteal vein, and the trifurcation region shows no evidence of deep venous thrombosis. There is no significant popliteal fossa cyst. No popliteal cyst. The subcutaneous soft tissues are unremarkable. US/US venous duplex LE BI IMPRESSION: No evidence for deep venous thrombosis in the visualized veins of the bilateral lower extremities.
--- NOTE | ~2022-06-10 | XR_ITS ---
EXAMINATION: XR CHEST CLINICAL INFORMATION: Chest pain COMPARISON: 03/05/2022 TECHNIQUE: Frontal view of the chest was obtained. FINDINGS: Lungs grossly clear. Heart and pulmonary vessels normal. No congestive change. XR/XR chest 1V IMPRESSION: No active disease.
--- NOTE | ~2022-06-10 | CT_ITS ---
EXAMINATION: CT ABDOMEN AND PELVIS WITH CONTRAST CLINICAL INFORMATION: Abdominal pain COMPARISON: CT abdomen pelvis 05/28/2022 along with prior studies dating back to 05/02/2013 TECHNIQUE: Multidetector volumetric images were obtained from the superior aspect of the liver through the pubic symphysis following administration 85 mL of Omnipaque 350 intravenous contrast. Sagittal and coronal reformatted images were obtained on the technologist's workstation. Oral contrast: No This CT examination was performed using dose optimization techniques as appropriate, variously including the following: *Automated exposure control *Adjustment of mA and/or kV according to patient size (this includes techniques or standardized protocols for targeted exams where dose is matched to indication/reason for exam; i.e. extremities or head) *Use of iterative reconstruction technique DLP: 503 mGy-cm FINDINGS: LUNG BASES: There is a new 2.1 cm groundglass opacity seen at the left lung base with smaller peripheral groundglass opacities. No solid pulmonary nodules are seen. LIVER, GALLBLADDER, AND BILIARY TREE: The liver is enlarged measuring 20.9 cm in cephalocaudad dimension and demonstrates decreased attenuation consistent with hepatic steatosis. No focal hepatic lesion or biliary ductal dilatation is present. The gallbladder is unremarkable with no evidence of radiopaque gallstones, gallbladder wall thickening, or obvious pericholecystic inflammatory changes. PANCREAS: Unremarkable. SPLEEN: Unremarkable. ADRENAL GLANDS: Bilateral adrenal enlargement. At the time of the 05/28/2022 CT scan has major low attenuation consistent with adenomas. They are unchanged in size when compared to the 2013 studies. KIDNEYS AND URETERS: The kidneys are normal in size, shape, and attenuation. No hydronephrosis, hydroureter, or calculi seen. No perinephric stranding. BLADDER: Unremarkable. GASTROINTESTINAL TRACT: There is thickening of the distal esophagus which may be due to underfilling. The small and large bowel are unremarkable. The appendix is unremarkable. ABDOMINAL WALL: No significant hernia is appreciated. LYMPH NODES: No retroperitoneal lymphadenopathy VASCULAR: Marked atherosclerotic disease present in the distal aorta and common iliac arteries. No aneurysm. No critical stenosis. PELVIC VISCERA: Surgically removed OSSEOUS STRUCTURES: Unremarkable. CT/CT abdomen pelvis w IV con IMPRESSION: 1. A cause for the patient's abdominal pain has not been found. 2. Incidental note made of new 2.1 cm groundglass opacity at the left lung base with smaller peripheral groundglass opacities. This could be infectious or inflammatory. 3. Enlarged fatty liver. 4. Stable bilateral adrenal adenomas. 5. Thickening of the distal esophagus which may be due to underfilling. If symptoms warrant, esophagram or upper endoscopy could be useful. 6. Status post hysterectomy. 2017 Fleischner Society Recommendations for Lung Nodule(s): Follow-Up based on size (average of long- and short-axis diameters). Use most suspicious nodule for followup. Single GG lung nodule >= 6 mm: Recommend a non-contrast Chest CT at 6-12 months to confirm persistence, then additional non-contrast Chest CTs every 2 years until 5 years. These guidelines do not apply to patients younger than 35 years, immunocompromised patients, and patients with cancer. F/u in patients with significant comorbidities as clinically warranted. For lung cancer screening, adhere to Lung-RADS guidelines. Reference: Radiology. 2017 Jan; 284(1):228-243
--- NOTE | ~2022-06-10 | CT_ITS ---
EXAMINATION: CT CHEST WITHOUT CONTRAST CLINICAL INFORMATION: Chest pain and shortness of breath. COMPARISON: CTA chest 10/21/2017. TECHNIQUE: Multidetector volumetric CT imaging of the chest was done. Axial MIP volume rendering provided. Sagittal and coronal reformatted images were obtained. This CT examination was performed using dose optimization techniques as appropriate, variously including the following: *Automated exposure control *Adjustment of mA and/or kV according to patient size (this includes techniques or standardized protocols for targeted exams where dose is matched to indication/reason for exam; i.e. extremities or head) *Use of iterative reconstruction technique DLP: 180 mGy-cm FINDINGS: LUNGS: There is diffuse bronchial wall thickening with mosaic attenuation of lung parenchyma. No dense consolidation. The central airways are patent. There are several new sub-4 mm pulmonary nodules when compared to 10/21/2017, for instance a patient care representative medial right lower lobe 4 mm nodule on image 224, series 5. MEDIASTINUM: Normal heart size with trace amount of pericardial fluid. Subcentimeter short axis mediastinal lymph nodes are not significantly changed compared to 2018. Evaluation of the hilar structures is limited in the absence of IV contrast. Normal appearance of the thyroid gland. Normal diameter of the thoracic aorta. CORONARY ARTERY CALCIFICATION: Present, mild. PLEURA: There is no pleural effusion. No pleural mass or thickening. AXILLA: Mildly prominent but fairly symmetric axillary lymph nodes are note significantly changed, likely reactive. UPPER ABDOMEN: There is residual contrast in the bilateral collecting systems from a prior study dated yesterday, suggesting some poor excretory renal function. There is a 1.5 cm left adrenal gland lesion, measuring greater than 10 Hounsfield units, stable when compared to 01/21/2017. The stability is reassuring for an indolent/benign process. Hepatic steatosis. OSSEOUS STRUCTURES: No aggressive appearing osseous abnormalities. CT/CT chest wo IV con IMPRESSION: 1. Diffuse bronchial wall thickening with mosaic attenuation of the lung parenchyma suggesting some degree of air trapping in the setting of small airways disease. 2. There are several new sub-4 mm pulmonary nodules when compared to 10/21/2017. Assuming patient has no history of malignancy, recommend follow-up per Fleischner Society recommendations. According to the UPDATED 2017 Fleischner Society recommendations, the advised followup imaging for solid nodules < 6 mm is: LOW RISK PATIENT: No routine follow up. HIGH RISK PATIENT: Optional CT at 12 months. 3. Residual contrast in the collecting systems suggesting decrease excretory renal function. Correlate with renal function tests. 4. Hepatic steatosis. 5. A 1.5 cm indeterminate left adrenal lesion is unchanged compared to baseline examinations from 2017 which is reassuring for benign/indolent etiology such as lipid poor adenoma. Fleischner guidelines were followed.
--- NOTE | 2022-06-10 13:44 | ECG_ITS ---
Test Reason : CHEST PRESSURE Blood Pressure : / mmHG Vent. Rate : 093 BPM Atrial Rate : 093 BPM P-R Int : 158 ms QRS Dur : 080 ms QT Int : 382 ms P-R-T Axes : 063 016 042 degrees QTc Int : 474 ms Normal sinus rhythm Possible Left atrial enlargement Borderline ECG Heart rate has increased Referred By: Augustine Moraes Electronically Signed By:FANY EMERY MD
[2022-06-10 13:45] VITALS: BP 135/76; PULSE 95; RESP 16; TEMP 36.6; O2SAT 100; BMI 26.0
--- NOTE | 2022-06-10 13:46 | ED_ITS ---
HPI - General Adult General Chief complaint: Chest Pain Stated complaint: Chest Pressure Swollen Feet L Shoulder Pain Time Seen by Provider: 06/10/22 20:48 Related Data Previous Rx's Medication Instructions Recorded amoxicillin 875 mg-potassium 1 tab PO BID #20 tabs 01/22/21 clavulanate 125 mg tablet (Augmentin) dicyclomine 10 mg capsule 10 mg PO BID #20 caps 01/22/21 metronidazole 500 mg tablet 500 mg PO TID #30 tabs 01/22/21 (Flagyl) codeine 10 mg-guaifenesin 100 mg/5 10 ml PO Q4-6H PRN cough #237 mL 04/01/21 mL oral liquid prednisone 20 mg tablet 40 mg PO DAILY #10 tabs 04/01/21 omeprazole 10 mg capsule,delayed 10 mg PO DAILY #20 caps 12/03/21 release albuterol sulfate 0.63 mg/3 mL 0.63 mg (3 mL) inhalation QID PRN 03/05/22 solution for nebulization shortness of breath or wheezing #75 mL albuterol sulfate 90 mcg/actuation 1 inh inhalation QID PRN shortness 03/05/22 aerosol inhaler of breath or wheezing #8.5 grams prednisone 20 mg tablet 20 mg PO DAILY 5 days #5 tabs 03/05/22 amoxicillin 875 mg-potassium 1 tab PO Q12H 7 days #14 tabs 05/29/22 clavulanate 125 mg tablet metronidazole 500 mg tablet 500 mg PO Q8H 7 days #21 tabs 05/29/22 ondansetron 4 mg disintegrating 4 mg PO Q8H PRN nausea and 05/29/22 tablet vomiting #14 tabs oxycodone 5 mg tablet 5 mg PO Q8H PRN pain #7 tabs 05/29/22 albuterol sulfate 90 mcg/actuation 2 inh inhalation Q4-6H PRN 06/11/22 breath activated powder inhaler shortness of breath #1 ea ondansetron 4 mg disintegrating 4 mg PO Q6H PRN nausea and 06/11/22 tablet vomiting #14 tabs prednisone 20 mg tablet 40 mg PO DAILY 5 days #10 tabs 06/11/22 Allergies Allergy/AdvReac Type Severity Reaction Status Date / Time ciprofloxacin [From CIPRO] Allergy Intermediate RASH Verified 05/28/22 18:13 Sulfa (Sulfonamide Allergy Intermediate RASH Verified 05/28/22 18:13 Antibiotics) [SULFA (SULFONAMIDE ANTIBIOTICS)] sulfamethoxazole Allergy Unknown SWELLING Verified 05/28/22 18:13 [From ] trimethoprim [From ] Allergy Unknown SWELLING Verified 05/28/22 18:13 SEAFOOD Allergy Severe ANAPHYLAXIS Uncoded 03/05/22 14:51 [facility] Past Medical History Medical History Asthma Diabetes Hepatitis A Social History Social History Alcohol intake: never Advance Directives: No Advance Directives Information Provided: Yes Physical Exam ED Vital Signs: Vital Signs - 24 hr 06/10/22 13:45 Temperature 97.8 F Pulse Rate 95 Respiratory Rate 16 Blood Pressure 135/76 Pulse Oximetry 100 Oxygen Delivery Method Room Air BMI result Body Mass Index 26.0 Course Course Course Narrative: HEATH. patient preesnts to the ED for chest pressure that began today and bilateral leg swelling since wednesday. Patient vital signs stable. legs do not look swollen but bilateral calf pain. Labs, EKG, chest xray, and doppler of legs ordered. PEdal pulses intact. neuro/vascular/motor exam intact of lower extremiies. patient admites neuropathy of both legs pmh of Diabetes. not suspecting areterial occlussion of legs. Medications Administered Discontinued Medications Generic Name Dose Route Start Last Admin Trade Name Freq PRN Reason Stop Dose Admin Hydromorphone HCl 0.5 mg 06/10/22 22:10 06/10/22 22:58 Hydromorphone Hcl 0.5 Mg/0.5 Ml Syringe IVPUSH 06/10/22 22:11 0.5 mg ONCE ONE Administration Protocol Sodium Chloride 1,000 mls @ 999 mls/hr 06/10/22 21:00 06/10/22 22:59 Ns IV 06/10/22 22:00 Infused .Q1H1M SHANTE Infusion Iohexol 100 ml 06/10/22 22:29 06/10/22 22:29 Iohexol 350 Mg/Ml 100 Ml Infus..Btl IV 06/10/22 22:30 85 ml ONCE ONE Administration Morphine Sulfate 4 mg 06/10/22 21:13 06/10/22 21:27 Morphine Sulfate 4 Mg/Ml Cartridge IVPUSH 06/10/22 21:14 4 mg ONCE ONE Administration Protocol Medical Decision Making Lab Data Result diagrams: 06/10/22 14:00 06/10/22 14:00 Labs: Lab Results 06/10/22 06/10/22 06/10/22 Range/Units 14:00 14:00 14:00 WBC 10.1 (4.8-10.8) X10*3/uL RBC 5.24 (4.20-5.50) X10*6/uL Hgb 15.2 (12.0-16.0) g/dl Hct 46.8 (37.0-47.0) % MCV 89.3 (80.0-98.0) fL MCH 29.0 (27.0-33.0) pg MCHC 32.5 (31.0-35.0) g/dl RDW 13.6 (11.0-16.0) % Plt Count 369 (160-400) X10*3/uL MPV 9.9 (9.4-12.3) fL Immature Gran % (Auto) 0.3 (0.0-0.4) % Neut % (Auto) 66.0 (45-73) % Lymph % (Auto) 27.3 (20-40) % [place] % (Auto) 5.2 (2-11) % Eos % (Auto) 0.6 (0-4) % Baso % (Auto) 0.6 (0-2) % Lymph # (Auto) 2.8 (1.2-4.9) X10*3/uL [place] # (Auto) 0.5 (0.1-1.2) X10*3/uL Eos # (Auto) 0.1 (0.0-0.4) X10*3/uL Baso # (Auto) 0.1 (0.0-0.2) X10*3/uL Abs Immat Gran (auto) 0.03 (0.00-0.03) X10*3/uL Absolute Neuts (auto) 6.7 (2.0-8.3) x10*3/uL Absolute Nucleated RBC 0.000 (0.0-0.012) X10*3/uL Nucleated RBC % (auto) 0.0 (0.0-0.2) /100WBC PT 10.5 (10.0-13.1) SEC INR 0.9 (0.9-1.1) APTT 38.2 H (26.0-36.4) SEC D-Dimer High Sensitivty < 150 NG/ML Sodium 140 (135-145) mmol/L Potassium 4.7 (3.3-5.1) mmol/L Chloride 101 (96-108) mmol/L Carbon Dioxide 26 (22-29) mmol/L Anion Gap 18 (12-20) BUN 15 (9-16) mg/dL Creatinine 0.88 (0.5-1.4) mg/dL Estim Creat Clear Calc 78.9 Estimated GFR > 60 POC Glucose (60-115) mg/dL Random Glucose 358 H* (60-115) mg/dL Calcium 10.0 (8.4-10.2) mg/dL Total Bilirubin 0.2 (0.0-1.0) mg/dL AST 24 (5-31) U/L ALT 53 H (0-31) U/L Alkaline Phosphatase 118 H (39-117) U/L Troponin I High Sens (<3.5-17.0) ng/L B-Natriuretic Peptide (<100) pg/mL Total Protein 8.2 H (6.5-8.0) g/dL Albumin 4.6 (3.5-5.0) g/dL Lipase 50 (8-78) U/L Beta HCG, Quant 7 mIU/mL COVID-19 (RAGINI) (Negative) COVID-19 Clin Com 06/10/22 06/10/22 06/10/22 Range/Units 14:00 14:00 14:00 WBC (4.8-10.8) X10*3/uL RBC (4.20-5.50) X10*6/uL Hgb (12.0-16.0) g/dl Hct (37.0-47.0) % MCV (80.0-98.0) fL MCH (27.0-33.0) pg MCHC (31.0-35.0) g/dl RDW (11.0-16.0) % Plt Count (160-400) X10*3/uL MPV (9.4-12.3) fL Immature Gran % (Auto) (0.0-0.4) % Neut % (Auto) (45-73) % Lymph % (Auto) (20-40) % Coryell % (Auto) (2-11) % Eos % (Auto) (0-4) % Baso % (Auto) (0-2) % Lymph # (Auto) (1.2-4.9) X10*3/uL [place] # (Auto) (0.1-1.2) X10*3/uL Eos # (Auto) (0.0-0.4) X10*3/uL Baso # (Auto) (0.0-0.2) X10*3/uL Abs Immat Gran (auto) (0.00-0.03) X10*3/uL Absolute Neuts (auto) (2.0-8.3) x10*3/uL Absolute Nucleated RBC (0.0-0.012) X10*3/uL Nucleated RBC % (auto) (0.0-0.2) /100WBC PT (10.0-13.1) SEC INR (0.9-1.1) APTT (26.0-36.4) SEC D-Dimer High Sensitivty NG/ML Sodium (135-145) mmol/L Potassium (3.3-5.1) mmol/L Chloride (96-108) mmol/L Carbon Dioxide (22-29) mmol/L Anion Gap (12-20) BUN (9-16) mg/dL Creatinine (0.5-1.4) mg/dL Estim Creat Clear Calc Estimated GFR POC Glucose (60-115) mg/dL Random Glucose (60-115) mg/dL Calcium (8.4-10.2) mg/dL Total Bilirubin (0.0-1.0) mg/dL AST (5-31) U/L ALT (0-31) U/L Alkaline Phosphatase (39-117) U/L Troponin I High Sens < 3.5 (<3.5-17.0) ng/L B-Natriuretic Peptide < 10 (<100) pg/mL Total Protein (6.5-8.0) g/dL Albumin (3.5-5.0) g/dL Lipase (8-78) U/L Beta HCG, Quant mIU/mL COVID-19 (RAGINI) Negative (Negative) COVID-19 Clin Com See Note 06/10/22 06/11/22 Range/Units 21:00 01:50 WBC (4.8-10.8) X10*3/uL RBC (4.20-5.50) X10*6/uL Hgb (12.0-16.0) g/dl Hct (37.0-47.0) % MCV (80.0-98.0) fL MCH (27.0-33.0) pg MCHC (31.0-35.0) g/dl RDW (11.0-16.0) % Plt Count (160-400) X10*3/uL MPV (9.4-12.3) fL Immature Gran % (Auto) (0.0-0.4) % Neut % (Auto) (45-73) % Lymph % (Auto) (20-40) % Cory[place] % (Auto) (2-11) % Eos % (Auto) (0-4) % Baso % (Auto) (0-2) % Lymph # (Auto) (1.2-4.9) X10*3/uL [place] # (Auto) (0.1-1.2) X10*3/uL Eos # (Auto) (0.0-0.4) X10*3/uL Baso # (Auto) (0.0-0.2) X10*3/uL Abs Immat Gran (auto) (0.00-0.03) X10*3/uL Absolute Neuts (auto) (2.0-8.3) x10*3/uL Absolute Nucleated RBC (0.0-0.012) X10*3/uL Nucleated RBC % (auto) (0.0-0.2) /100WBC PT (10.0-13.1) SEC INR (0.9-1.1) APTT (26.0-36.4) SEC D-Dimer High Sensitivty NG/ML Sodium (135-145) mmol/L Potassium (3.3-5.1) mmol/L Chloride (96-108) mmol/L Carbon Dioxide (22-29) mmol/L Anion Gap (12-20) BUN (9-16) mg/dL Creatinine (0.5-1.4) mg/dL Estim Creat Clear Calc Estimated GFR POC Glucose 155 H (60-115) mg/dL Random Glucose (60-115) mg/dL Calcium (8.4-10.2) mg/dL Total Bilirubin (0.0-1.0) mg/dL AST (5-31) U/L ALT (0-31) U/L Alkaline Phosphatase (39-117) U/L Troponin I High Sens 3.8 (<3.5-17.0) ng/L B-Natriuretic Peptide (<100) pg/mL Total Protein (6.5-8.0) g/dL Albumin (3.5-5.0) g/dL Lipase (8-78) U/L Beta HCG, Quant mIU/mL COVID-19 (RAGINI) (Negative) COVID-19 Clin Com Discharge Plan Discharge Clinical Impression: Chest pressure, Abdominal pain, Tingling, Nausea, RAD (reactive airway disease) Patient Disposition: Home, Self-Care Instructions: Chest Pain (ED), Paresthesia (ED), Abdominal Pain (ED), Chest Wall Pain (ED) Additional Instructions: Take your medications as prescribed. If you were prescribed antibiotics today, it is important that you take your medication to their entirety, do not skip any doses, do not finish them early. Follow-up with your primary care provider this week. Is symptoms persist she s jenniferuld follow-up with Cardiology, information below. Since your abdominal pain has been going on for a while now, please follow-up with gastroenterology information below. Return to the emergency department with new or worsening symptoms. Such as fevers, chills, chest pain, shortness of breath, nausea, vomiting, dizziness, headache, vision changes, lethargy In case of emergency call 911 Please take Zofran as prescribed. Do not take more than the prescribed doses this can lead to cardiac abnormalities. This medication is for nausea and or vomiting For pain or discomfort you take ibuprofen every 6 hours, Tylenol every [address]/CT abdomen pelvis w IV con IMPRESSION: 1.? A cause for the patient's abdominal pain has not been found. 2.? Incidental note made of new 2.1 cm groundglass opacity at the left lung base with smaller peripheral groundglass opacities. This could be infectious or inflammatory. 3.? Enlarged fatty liver. 4.? Stable bilateral adrenal adenomas. 5.? Thickening of the distal esophagus which may be due to underfilling. If symptoms warrant, esophagram or upper endoscopy could be useful. 6.? Status post hysterectomy. XR/XR chest 1V IMPRESSION: No active disease. US/US venous duplex LE BI IMPRESSION: No evidence for deep venous thrombosis in the visualized veins of the bilateral lower extremities. CT/CT chest wo IV con IMPRESSION: 1.? Diffuse bronchial wall thickening with mosaic attenuation of the lung parenchyma suggesting some degree of air trapping in the setting of small airways disease. 2. There are several new sub-4 mm pulmonary nodules when compared to 10/21/2017. Assuming patient has no history of malignancy, recommend follow-up per Fleischner Society recommendations. According to the UPDATED 2017 Fleischner Society recommendations, the advised followup imaging for solid nodules < 6 mm is: ?? LOW RISK PATIENT: No routine follow up. ?? HIGH RISK PATIENT: Optional CT at 12 months. 3. Residual contrast in the collecting systems suggesting decrease excretory renal function. Correlate with renal function tests. 4. Hepatic steatosis. 5. A 1.5 cm indeterminate left adrenal lesion is unchanged compared to baseline examinations from 2017 which is reassuring for benign/indolent etiology such as lipid poor adenoma. ? Fleischner guidelines were followed. Prescriptions: New ondansetron 4 mg tablet,disintegrating 4 mg PO Q6H PRN (Reason: nausea and vomiting) Qty: 14 0RF albuterol sulfate 90 mcg/actuation aerosol powdr breath activated 2 inh inhalation Q4-6H PRN (Reason: shortness of breath) Qty: 1 0RF prednisone 20 mg tablet 40 mg PO DAILY 5 Days Qty: 10 0RF No Action amoxicillin-pot clavulanate [Augmentin] 875-125 mg tablet 1 tab PO BID Qty: 20 0RF metronidazole [Flagyl] 500 mg tablet 500 mg PO TID Qty: 30 0RF dicyclomine 10 mg capsule 10 mg PO BID Qty: 20 0RF prednisone 20 mg tablet 40 mg PO DAILY Qty: 10 0RF codeine-guaifenesin 10-100 mg/5 mL liquid 10 ml PO Q4-6H PRN (Reason: cough) Qty: 237 0RF omeprazole 10 mg capsule,delayed release(/EC) 10 mg PO DAILY Qty: 20 0RF albuterol sulfate 0.63 mg/3 mL solution for nebulization 0.63 mg inhalation QID PRN (Reason: shortness of breath or wheezing) Qty: 75 0RF albuterol sulfate 90 mcg/actuation HFA aerosol inhaler 1 inh inhalation QID PRN (Reason: shortness of breath or wheezing) Qty: 8.5 0RF prednisone 20 mg tablet 20 mg PO DAILY 5 Days Qty: 5 0RF amoxicillin-pot clavulanate 875-125 mg tablet 1 tab PO Q12H 7 Days Qty: 14 0RF metronidazole 500 mg tablet 500 mg PO Q8H 7 Days Qty: 21 0RF oxycodone 5 mg tablet 5 mg PO Q8H PRN (Reason: pain) Qty: 7 0RF Rx Instructions: Partial Fill upon patient request. ondansetron 4 mg tablet,disintegrating 4 mg PO Q8H PRN (Reason: nausea and vomiting) Qty: 14 0RF [place] [facility] [place]] - 1 [place] [facility] [place]Provider Group] - 1 week Physician,Unknown J [Primary Care Provider] - 2 days Stand Alone Forms: Work/School Release Interventions: ED Discharge Assessment Last Done: 06/11/22 02:29 Discharge Date/Time: 06/11/22 02:29
[2022-06-10 14:07] LABS: MANUAL DIFF FLAG NO
[2022-06-10 14:09] LABS: Basophils Absolute Auto 0.1 X10*3/uL (0.0-0.2); Basophils Percent Auto 0.6 % (0-2); Eosinophils Absolute Auto 0.1 X10*3/uL (0.0-0.4); Eosinophils Percent Auto 0.6 % (0-4); Hematocrit 46.8 % (37.0-47.0); Hemoglobin 15.2 g/dl (12.0-16.0); Imm Gran Abs Auto 0.03 X10*3/uL (0.00-0.03); Imm Gran Pct Auto 0.3 % (0.0-0.4); Lymphocytes Absolute Auto 2.8 X10*3/uL (1.2-4.9); Lymphocytes Percent Auto 27.3 % (20-40); Mean Corpuscular HGB Conc 32.5 g/dl (31.0-35.0); Mean Corpuscular Volume 89.3 fL (80.0-98.0); Mean Platelet Volume 9.9 fL (9.4-12.3); Monocytes Absolute Auto 0.5 X10*3/uL (0.1-1.2); Monocytes Percent Auto 5.2 % (2-11); Neutrophils Absolute Auto 6.7 x10*3/uL (2.0-8.3); Platelet Count 369 X10*3/uL (160-400); Red Blood Count 5.24 X10*6/uL (4.20-5.50); Red Cell Distribution Width 13.6 % (11.0-16.0); White Blood Count 10.1 X10*3/uL (4.8-10.8)
[2022-06-10 14:16] LABS: INTERNATIONAL NORM RATIO 0.9 (0.9-1.1); Prothrombin Time 10.5 SEC (10.0-13.1)
[2022-06-10 14:19] LABS: Partial Thromboplastin Time 38.2 SEC (26.0-36.4)
[2022-06-10 14:27] LABS: COVID-19 Test Negative (Negative); IDNOW Serial# 16C4AD1C
[2022-06-10 14:31] LABS: Alanine Aminotransferase 53 U/L (0-31); Albumin Level 4.6 g/dL (3.5-5.0); Alkaline Phosphatase 118 U/L (39-117); Anion Gap 18 (12-20); Aspartate Amino Transferase 24 U/L (5-31); Bilirubin Total 0.2 mg/dL (0.0-1.0); Blood Urea Nitrogen 15 mg/dL (9-16); Carbon Dioxide 26 mmol/L (22-29); Chloride 101 mmol/L (96-108); Creatinine Clr Calc Pharmacy 78.9; Estimated Glomerular Filt Rate > 60; Glucose Random 358 mg/dL (60-115); Potassium 4.7 mmol/L (3.3-5.1); Sodium 140 mmol/L (135-145); Total Protein 8.2 g/dL (6.5-8.0)
[2022-06-10 14:32] LABS: B Type Natriuretic Peptide < 10 pg/mL (<100)
[2022-06-10 14:43] LABS: Troponin-I High Sensitivity < 3.5 ng/L (<3.5-17.0)
--- NOTE | 2022-06-10 20:48 | ED.CHESTPAIN ---
HPI - Chest Pain General Chief Complaint: Chest Pain Stated Complaint: Chest Pressure Swollen Feet L Shoulder Pain Time Seen by Provider: 06/10/22 20:48 Source: patient Mode of arrival: ambulatory Limitations: no limitations History of Present Illness HPI narrative: This is a 47-year-old female history of hepatitis I, diabetes, asthma presenting to the emergency department with complaints of chest pain x1 day and progressively worsening lower extremity edema times a week. Patient also has vague complaints of nausea, abdominal pain. Patient tells me that she was seen here in the emergency department on May 28 and was told she had enteritis, was discharged home on antibiotics, she tells me ever since then her lower extremities have been swelling. She tells me her abdominal symptoms have not improved. She reports she is very uncomfortable and is having diffuse abdominal pain constantly throughout the day. Unable to tell me what makes it better or worse. Patient also reporting substernal chest pressure nonradiating. Tells me it comes intermittently and last few seconds and then subsides. Unable to tell me what makes chest pain better or worse. Patient tells me that she feels as though her lower extremities are significantly swollen, more than usual. She reports that she is having intermittent tingling to bilateral lower extremities, patient has history of neuropathy however tells me this feels different. Denies trauma to the area. Patient denies fevers, chills, vomiting, headache, vision changes, weakness, shortness of breath, vaginal bleeding, vaginal discharge, urinary sx. Patient current daily smoker, denies history of PE or DVT, not currently on control or hormone replacement, denies long travel, no history of cancer. Related Data Previous Rx's Medication Instructions Recorded amoxicillin 875 mg-potassium 1 tab PO BID #20 tabs 01/22/21 clavulanate 125 mg tablet (Augmentin) dicyclomine 10 mg capsule 10 mg PO BID #20 caps 01/22/21 metronidazole 500 mg tablet 500 mg PO TID #30 tabs 01/22/21 (Flagyl) codeine 10 mg-guaifenesin 100 mg/5 10 ml PO Q4-6H PRN cough #237 mL 04/01/21 mL oral liquid prednisone 20 mg tablet 40 mg PO DAILY #10 tabs 04/01/21 omeprazole 10 mg capsule,delayed 10 mg PO DAILY #20 caps 12/03/21 release albuterol sulfate 0.63 mg/3 mL 0.63 mg (3 mL) inhalation QID PRN 03/05/22 solution for nebulization shortness of breath or wheezing #75 mL albuterol sulfate 90 mcg/actuation 1 inh inhalation QID PRN shortness 03/05/22 aerosol inhaler of breath or wheezing #8.5 grams prednisone 20 mg tablet 20 mg PO DAILY 5 days #5 tabs 03/05/22 amoxicillin 875 mg-potassium 1 tab PO Q12H 7 days #14 tabs 05/29/22 clavulanate 125 mg tablet metronidazole 500 mg tablet 500 mg PO Q8H 7 days #21 tabs 05/29/22 ondansetron 4 mg disintegrating 4 mg PO Q8H PRN nausea and 05/29/22 tablet vomiting #14 tabs oxycodone 5 mg tablet 5 mg PO Q8H PRN pain #7 tabs 05/29/22 albuterol sulfate 90 mcg/actuation 2 inh inhalation Q4-6H PRN 06/11/22 breath activated powder inhaler shortness of breath #1 ea ondansetron 4 mg disintegrating 4 mg PO Q6H PRN nausea and 06/11/22 tablet vomiting #14 tabs prednisone 20 mg tablet 40 mg PO DAILY 5 days #10 tabs 06/11/22 Allergies Allergy/AdvReac Type Severity Reaction Status Date / Time ciprofloxacin [From CIPRO] Allergy Intermediate RASH Verified 05/28/22 18:13 Sulfa (Sulfonamide Allergy Intermediate RASH Verified 05/28/22 18:13 Antibiotics) [SULFA (SULFONAMIDE ANTIBIOTICS)] sulfamethoxazole Allergy Unknown SWELLING Verified 05/28/22 18:13 [From ] trimethoprim [From ] Allergy Unknown SWELLING Verified 05/28/22 18:13 SEAFOOD Allergy Severe ANAPHYLAXIS Uncoded 03/05/22 14:51 Review of Systems Review of Systems: Constitutional : No Weight loss, No Fever, No Chills, No Fatigue, No Malaise ENT/Mouth : No sore throat, No Rhinorrhea Eyes: No Eye Pain, No Swelling, No Redness Cardiovascular : + Chest Pain, No SOB, No Dyspnea on Exertion, No Orthopnea, + Edema, No Palpitations Respiratory : No Cough, No Sputum, No Wheezing Gastrointestinal : + Nausea, No Vomiting, No Diarrhea, No Constipation, + abdominal Pain, No Hematochezia, No Melena Genitourinary : No Dysuria, No Urinary Frequency, No Hematuria, Musculoskeletal : No joint pain, No Myalgias, No Joint Swelling Skin : No Skin Lesions, No rash Neuro : No Weakness, No Numbness, No Dizziness, No Headache Psych : No Anxiety/Panic, No Depression All other systems reviewed and are negative Yes all other systems are reviewed and are negative [facility] Past Medical History Attestation statement: The following information was validated with the patient. Source: old records reviewed and nursing notes reviewed Medical History Asthma Diabetes Hepatitis A Social History Social History Alcohol intake: never Advance Directives: No Advance Directives Information Provided: Yes Physical Exam Vital Signs: Vital Signs: Last Vital Signs Temp 97.5 F 06/11/22 00:23 Pulse 83 06/11/22 00:23 Resp 14 06/11/22 00:23 BP 158/90 H 06/11/22 00:23 Pulse Ox 97 06/11/22 00:23 O2 Del Method 06/11/22 00:23 BMI result Body Mass Index 26.0 vss Appearance: Alert.? Oriented X3.? No acute distress.? Head: Normocephalic, atraumatic, no step-offs or deformities Eyes: Pupils equal, round and reactive to light.? CVS: Normal heart rate and rhythm.? Pulses normal.? Respiratory: No respiratory distress.? Breath sounds normal.? Abdomen: Soft and nontender.? Skin: Skin warm and dry.? Normal skin color.? Normal skin turgor.? Extremities: No lower extremity edema.? No calf ttp, negative Nora bilaterally. 5/5 strength to bilateral upper and lower extremities. 2+ dorsalis pedis, anterior tibialis and posterior tibialis pulses equal and bilateral. Normal strength to bilateral lower extremities. Neuro: Oriented X 3.? No motor deficit.? No sensory deficit. CN 2-12 intact Course Reevaluation(s) Reevaluation #1: CBC appears to be within normal limits. Chemistry with elevated glucose will give patient IV hydration and recheck, no anion gap, or electrolyte abnormalities no history of DKA, I do not suspect DKA on this patient. Troponin negative, BNP negative, EKG pending however unlikely that this is ACS or CHF. Coags within normal limits. COVID negative. Chest x-ray normal. Venous duplex of bilateral lower extremities with out DVT. Added a D-dimer and it is currently pending. I also ordered a 2nd troponin. Time: 21:18 Reevaluation #2: D-dimer negative, unlikely that this is PE. Second troponin pending. CT of the abdomen and pelvis pending. Patient was medicated with morphine, given fluids. Time: 21:18 Reevaluation #3: Second troponin again negative. I do not suspect ACS on this patient. CT of the abdomen and pelvis pending. Time: 21:45 Additional Reevaluation(s): 0100 CT of the abdomen pelvis unable to identify a cause for patient's symptoms. 2.1 cm ground-glass opacity at the left lung base with smaller perihilar ground-glass opacities which could be infectious or inflammatory therefore a CT of the chest was ordered, bilateral adrenal adenomas noted, thickening of the distal esophagus which could be due to under filling however patient is not having any complaints with swallowing, or difficulties controlling secretions. Pending CT of the chest 0153 CT of the chest with diffuse bronchial wall thickening and mosaic attenuation which could represent small airway disease, new pulmonary nodules also noted. Normal renal function therefore low suspicion for residual contrast in the collecting duct system suggesting it decreased expiratory renal function. Hepatic steatosis noted and a 1.5 cm indeterminate left adrenal lesion is noted, attached these results to patient's discharge, discuss these results with patient. I explained to her she may have reactive airway disease, patient verbalizes understanding will discharge her home on prednisone and albuterol as needed for shortness of breath or wheezing of patient experiences. At this time I feel comfortable discharge home with prompt PCP follow-up. Advised to return with new or worsening symptoms. Comfortable discharge. At time of discharge patient tells me she is feeling much better and her symptoms have resolved. Denies chest pain or shortness of breath. Tells me she is feeling much better and would like to go home. Medications Administered Discontinued Medications Generic Name Dose Route Start Last Admin Trade Name Freq PRN Reason Stop Dose Admin Hydromorphone HCl 0.5 mg 06/10/22 22:10 06/10/22 22:58 Hydromorphone Hcl 0.5 Mg/0.5 Ml Syringe IVPUSH 06/10/22 22:11 0.5 mg ONCE ONE Administration Protocol Sodium Chloride 1,000 mls @ 999 mls/hr 06/10/22 21:00 06/10/22 22:59 Ns IV 06/10/22 22:00 Infused .Q1H1M SHANTE Infusion Iohexol 100 ml 06/10/22 22:29 06/10/22 22:29 Iohexol 350 Mg/Ml 100 Ml Infus..Btl IV 06/10/22 22:30 85 ml ONCE ONE Administration Morphine Sulfate 4 mg 06/10/22 21:13 06/10/22 21:27 Morphine Sulfate 4 Mg/Ml Cartridge IVPUSH 06/10/22 21:14 4 mg ONCE ONE Administration Protocol MDM - Chest Pain MDM Narrative Medical decision making narrative: 2048 47-year-old female presents with multiple complaints, substernal chest pressure, lower extremity swelling, abdominal pain, nausea. To note patient was seen here in the emergency department on 05/28/2022 where she presented with abdominal pain, nausea, vomiting and diarrhea, she had a CT of the abdomen and pelvis which indicated enteritis. Patient was treated with Augmentin and finished this course of Augmentin on per patient. Upon physical examination patient diffusely tender to abdomen on exam, normoactive bowel sounds, minimally distended, no CVA tenderness, regular rate and rhythm, lungs clear, neuro nonfocal. Vital signs stable. Likely enteritis. Unlikely acute abdomen, appendicitis, cholecystitis, pancreatitis. Due to patient's chest pain will rule out ACS although unlikely. I do not suspect PE on this patient however this will also be ruled out. History and physical examination not consistent with dissection. Lower extremity edema unlikely DVT or arterial occlusion. Medical Records Data Attestation: I reviewed the patient's medical records. Lab Data Attestation: I reviewed the patient's lab results. Result diagrams: 06/10/22 14:00 06/10/22 14:00 Labs: Lab Results 06/10/22 06/10/22 06/10/22 Range/Units 14:00 14:00 14:00 WBC 10.1 (4.8-10.8) X10*3/uL RBC 5.24 (4.20-5.50) X10*6/uL Hgb 15.2 (12.0-16.0) g/dl Hct 46.8 (37.0-47.0) % MCV 89.3 (80.0-98.0) fL MCH 29.0 (27.0-33.0) pg MCHC 32.5 (31.0-35.0) g/dl RDW 13.6 (11.0-16.0) % Plt Count 369 (160-400) X10*3/uL MPV 9.9 (9.4-12.3) fL Immature Gran % (Auto) 0.3 (0.0-0.4) % Neut % (Auto) 66.0 (45-73) % Lymph % (Auto) 27.3 (20-40) % [place] % (Auto) 5.2 (2-11) % Eos % (Auto) 0.6 (0-4) % Baso % (Auto) 0.6 (0-2) % Lymph # (Auto) 2.8 (1.2-4.9) X10*3/uL [place] # (Auto) 0.5 (0.1-1.2) X10*3/uL Eos # (Auto) 0.1 (0.0-0.4) X10*3/uL Baso # (Auto) 0.1 (0.0-0.2) X10*3/uL Abs Immat Gran (auto) 0.03 (0.00-0.03) X10*3/uL Absolute Neuts (auto) 6.7 (2.0-8.3) x10*3/uL Absolute Nucleated RBC 0.000 (0.0-0.012) X10*3/uL Nucleated RBC % (auto) 0.0 (0.0-0.2) /100WBC PT 10.5 (10.0-13.1) SEC INR 0.9 (0.9-1.1) APTT 38.2 H (26.0-36.4) SEC D-Dimer High Sensitivty < 150 NG/ML Sodium 140 (135-145) mmol/L Potassium 4.7 (3.3-5.1) mmol/L Chloride 101 (96-108) mmol/L Carbon Dioxide 26 (22-29) mmol/L Anion Gap 18 (12-20) BUN 15 (9-16) mg/dL Creatinine 0.88 (0.5-1.4) mg/dL Estim Creat Clear Calc 78.9 Estimated GFR > 60 Random Glucose 358 H* (60-115) mg/dL Calcium 10.0 (8.4-10.2) mg/dL Total Bilirubin 0.2 (0.0-1.0) mg/dL AST 24 (5-31) U/L ALT 53 H (0-31) U/L Alkaline Phosphatase 118 H (39-117) U/L Troponin I High Sens (<3.5-17.0) ng/L B-Natriuretic Peptide (<100) pg/mL Total Protein 8.2 H (6.5-8.0) g/dL Albumin 4.6 (3.5-5.0) g/dL Lipase 50 (8-78) U/L Beta HCG, Quant 7 mIU/mL COVID-19 (RAGINI) (Negative) COVID-19 Clin Com 06/10/22 06/10/22 06/10/22 Range/Units 14:00 14:00 14:00 WBC (4.8-10.8) X10*3/uL RBC (4.20-5.50) X10*6/uL Hgb (12.0-16.0) g/dl Hct (37.0-47.0) % MCV (80.0-98.0) fL MCH (27.0-33.0) pg MCHC (31.0-35.0) g/dl RDW (11.0-16.0) % Plt Count (160-400) X10*3/uL MPV (9.4-12.3) fL Immature Gran % (Auto) (0.0-0.4) % Neut % (Auto) (45-73) % Lymph % (Auto) (20-40) % [place] % (Auto) (2-11) % Eos % (Auto) (0-4) % Baso % (Auto) (0-2) % Lymph # (Auto) (1.2-4.9) X10*3/uL [place] # (Auto) (0.1-1.2) X10*3/uL Eos # (Auto) (0.0-0.4) X10*3/uL Baso # (Auto) (0.0-0.2) X10*3/uL Abs Immat Gran (auto) (0.00-0.03) X10*3/uL Absolute Neuts (auto) (2.0-8.3) x10*3/uL Absolute Nucleated RBC (0.0-0.012) X10*3/uL Nucleated RBC % (auto) (0.0-0.2) /100WBC PT (10.0-13.1) SEC INR (0.9-1.1) APTT (26.0-36.4) SEC D-Dimer High Sensitivty NG/ML Sodium (135-145) mmol/L Potassium (3.3-5.1) mmol/L Chloride (96-108) mmol/L Carbon Dioxide (22-29) mmol/L Anion Gap (12-20) BUN (9-16) mg/dL Creatinine (0.5-1.4) mg/dL Estim Creat Clear Calc Estimated GFR Random Glucose (60-115) mg/dL Calcium (8.4-10.2) mg/dL Total Bilirubin (0.0-1.0) mg/dL AST (5-31) U/L ALT (0-31) U/L Alkaline Phosphatase (39-117) U/L Troponin I High Sens < 3.5 (<3.5-17.0) ng/L B-Natriuretic Peptide < 10 (<100) pg/mL Total Protein (6.5-8.0) g/dL Albumin (3.5-5.0) g/dL Lipase (8-78) U/L Beta HCG, Quant mIU/mL COVID-19 (RAGINI) Negative (Negative) COVID-19 Clin Com See Note 06/10/22 Range/Units 21:00 WBC (4.8-10.8) X10*3/uL RBC (4.20-5.50) X10*6/uL Hgb (12.0-16.0) g/dl Hct (37.0-47.0) % MCV (80.0-98.0) fL MCH (27.0-33.0) pg MCHC (31.0-35.0) g/dl RDW (11.0-16.0) % Plt Count (160-400) X10*3/uL MPV (9.4-12.3) fL Immature Gran % (Auto) (0.0-0.4) % Neut % (Auto) (45-73) % Lymph % (Auto) (20-40) % [place] % (Auto) (2-11) % Eos % (Auto) (0-4) % Baso % (Auto) (0-2) % Lymph # (Auto) (1.2-4.9) X10*3/uL [place] # (Auto) (0.1-1.2) X10*3/uL Eos # (Auto) (0.0-0.4) X10*3/uL Baso # (Auto) (0.0-0.2) X10*3/uL Abs Immat Gran (auto) (0.00-0.03) X10*3/uL Absolute Neuts (auto) (2.0-8.3) x10*3/uL Absolute Nucleated RBC (0.0-0.012) X10*3/uL Nucleated RBC % (auto) (0.0-0.2) /100WBC PT (10.0-13.1) SEC INR (0.9-1.1) APTT (26.0-36.4) SEC D-Dimer High Sensitivty NG/ML Sodium (135-145) mmol/L Potassium (3.3-5.1) mmol/L Chloride (96-108) mmol/L Carbon Dioxide (22-29) mmol/L Anion Gap (12-20) BUN (9-16) mg/dL Creatinine (0.5-1.4) mg/dL Estim Creat Clear Calc Estimated GFR Random Glucose (60-115) mg/dL Calcium (8.4-10.2) mg/dL Total Bilirubin (0.0-1.0) mg/dL AST (5-31) U/L ALT (0-31) U/L Alkaline Phosphatase (39-117) U/L Troponin I High Sens 3.8 (<3.5-17.0) ng/L B-Natriuretic Peptide (<100) pg/mL Total Protein (6.5-8.0) g/dL Albumin (3.5-5.0) g/dL Lipase (8-78) U/L Beta HCG, Quant mIU/mL COVID-19 (RAGINI) (Negative) COVID-19 Clin Com ECG Data ECG #1: Attestation: I personally reviewed and interpreted this ECG as follows: ECG interpretation date: 06/10/22 ECG interpretation time: 22:10 Prior ECG tracings: available for review Interpretation: Ventricular rate of 93, IL normal, QRS normal, QT/QTC normal. EKG with normal sinus rhythm, no ST elevations or inversions concerning for ischemia. No previous EKGs to compare with. Critical Care Time Critical Care Time Critical Care Time: No Discharge Plan Discharge Clinical Impression: Chest pressure, Abdominal pain, Tingling, Nausea, RAD (reactive airway disease) Patient Disposition: Home, Self-Care Instructions: Chest Pain (ED), Paresthesia (ED), Abdominal Pain (ED), Chest Wall Pain (ED) Additional Instructions: Take your medications as prescribed. If you were prescribed antibiotics today, it is important that you take your medication to their entirety, do not skip any doses, do not finish them early. Follow-up with your primary care provider this week. Is symptoms persist she should follow-up with Cardiology, information below. Since your abdominal pain has been going on for a while now, please follow-up with gastroenterology information below. Return to the emergency department with new or worsening symptoms. Such as fevers, chills, chest pain, shortness of breath, nausea, vomiting, dizziness, headache, vision changes, lethargy In case of emergency call 911 Please take Zofran as prescribed. Do not take more than the prescribed doses this can lead to cardiac abnormalities. This medication is for nausea and or vomiting For pain or discomfort you take ibuprofen every 6 hours, Tylenol every [address]/CT abdomen pelvis w IV con IMPRESSION: 1.? A cause for the patient's abdominal pain has not been found. 2.? Incidental note made of new 2.1 cm groundglass opacity at the left lung base with smaller peripheral groundglass opacities. This could be infectious or inflammatory. 3.? Enlarged fatty liver. 4.? Stable bilateral adrenal adenomas. 5.? Thickening of the distal esophagus which may be due to underfilling. If symptoms warrant, esophagram or upper endoscopy could be useful. 6.? Status post hysterectomy. XR/XR chest 1V IMPRESSION: No active disease. US/US venous duplex LE BI IMPRESSION: No evidence for deep venous thrombosis in the visualized veins of the bilateral lower extremities. CT/CT chest wo IV con IMPRESSION: 1.? Diffuse bronchial wall thickening with mosaic attenuation of the lung parenchyma suggesting some degree of air trapping in the setting of small airways disease. 2. There are several new sub-4 mm pulmonary nodules when compared to 10/21/2017. Assuming patient has no history of malignancy, recommend follow-up per Fleischner Society recommendations. According to the UPDATED 2017 Fleischner Society recommendations, the advised followup imaging for solid nodules < 6 mm is: ?? LOW RISK PATIENT: No routine follow up. ?? HIGH RISK PATIENT: Optional CT at 12 months. 3. Residual contrast in the collecting systems suggesting decrease excretory renal function. Correlate with renal function tests. 4. Hepatic steatosis. 5. A 1.5 cm indeterminate left adrenal lesion is unchanged compared to baseline examinations from 2017 which is reassuring for benign/indolent etiology such as lipid poor adenoma. ? Fleischner guidelines were followed. Prescriptions: New ondansetron 4 mg tablet,disintegrating 4 mg PO Q6H PRN (Reason: nausea and vomiting) Qty: 14 0RF albuterol sulfate 90 mcg/actuation aerosol powdr breath activated 2 inh inhalation Q4-6H PRN (Reason: shortness of breath) Qty: 1 0RF prednisone 20 mg tablet 40 mg PO DAILY 5 Days Qty: 10 0RF No Action amoxicillin-pot clavulanate [Augmentin] 875-125 mg tablet 1 tab PO BID Qty: 20 0RF metronidazole [Flagyl] 500 mg tablet 500 mg PO TID Qty: 30 0RF dicyclomine 10 mg capsule 10 mg PO BID Qty: 20 0RF prednisone 20 mg tablet 40 mg PO DAILY Qty: 10 0RF codeine-guaifenesin 10-100 mg/5 mL liquid 10 ml PO Q4-6H PRN (Reason: cough) Qty: 237 0RF omeprazole 10 mg capsule,delayed release(DR/EC) 10 mg PO DAILY Qty: 20 0RF albuterol sulfate 0.63 mg/3 mL solution for nebulization 0.63 mg inhalation QID PRN (Reason: shortness of breath or wheezing) Qty: 75 0RF albuterol sulfate 90 mcg/actuation HFA aerosol inhaler 1 inh inhalation QID PRN (Reason: shortness of breath or wheezing) Qty: 8.5 0RF prednisone 20 mg tablet 20 mg PO DAILY 5 Days Qty: 5 0RF amoxicillin-pot clavulanate 875-125 mg tablet 1 tab PO Q12H 7 Days Qty: 14 0RF metronidazole 500 mg tablet 500 mg PO Q8H 7 Days Qty: 21 0RF oxycodone 5 mg tablet 5 mg PO Q8H PRN (Reason: pain) Qty: 7 0RF Rx Instructions: Partial Fill upon patient request. ondansetron 4 mg tablet,disintegrating 4 mg PO Q8H PRN (Reason: nausea and vomiting) Qty: 14 0RF Referrals: [facility] Cardiovascular Services [Provider Group] - 1 day [facility] Gastroenterology Services [Provider Group] - 1 week Physician,Unknown J [Primary Care Provider] - 2 days Stand Alone Forms: Work/School Release
[2022-06-10 20:53] VITALS: BP 153/87; PULSE 95; RESP 11; TEMP 36.4; O2SAT 95
[2022-06-10 21:04] LABS: D Dimer High Sensitivity < 150 NG/ML
[2022-06-10] MEDS: 0.9 % Sodium Chloride 1,000 ML 999 ML IV (21:06)
[2022-06-10 21:27] VITALS: RESP 16
[2022-06-10] MEDS: Morphine Sulfate 4 MG/ML CARTRIDGE IVPUSH (21:27)
[2022-06-10 21:38] LABS: Troponin-I High Sensitivity 3.8 ng/L (<3.5-17.0)
[2022-06-10 22:07] LABS: Lipase 50 U/L (8-78)
[2022-06-10 22:13] LABS: HCG Quantitative 7 mIU/mL
[2022-06-10 22:29] VITALS: BP 155/96; PULSE 83; RESP 17; TEMP 36.1; O2SAT 98
[2022-06-10] MEDS: iohexoL 350 MG/ML 100 ML INFUS..BTL IV (22:29)
[2022-06-10 22:58] VITALS: RESP 16
[2022-06-10] MEDS: HYDROmorphone HCl 0.5 MG/0.5 ML SYRINGE IVPUSH (22:58)
[2022-06-11 00:23] VITALS: BP 158/90; PULSE 83; RESP 14; TEMP 36.4; O2SAT 97
[2022-06-11 01:55] LABS: Glucose, Whole Blood 155 mg/dL (60-115)
[2022-06-11 02:28] VITALS: BP 149/82; PULSE 81; RESP 16; TEMP 36.6; O2SAT 99
== END 2022-06-11 02:29 | disposition home or self-care (01) ==
PROVIDERS: Physician Assistant; Emergency Provider Emergency Medicine
DX: R07.89 Other chest pain (principal); J45.909 Unspecified asthma, uncomplicated; R10.9 Unspecified abdominal pain; R60.0 Localized edema; R06.02 Shortness of breath; Z20.822 Contact with and (suspected) exposure to COVID-19; Z79.899 Other long term (current) drug therapy
CPT/HCPCS: 36415; 71045; 71250; 74177; 80053; 82947; 83690; 83880; 84484; 84702; 85025; 85379; 85610; 85730; 87635; 93005; 93970; 96361; 96374; 96375; 99285; J1170; J2270; Q9967

== ENCOUNTER 2022-07-05 22:43 | Emergency (ER) | payer OTHER, SELFPAY ==
--- NOTE | ~2022-07-05 | XR_ITS ---
EXAMINATION: XR CHEST CLINICAL INFORMATION: Shortness of breath and chest pain COMPARISON: Chest x-ray 06/10/2022 TECHNIQUE: 2 views of the chest were obtained. FINDINGS: The lungs are clear. No airspace consolidation, pleural effusion, or pneumothorax. The cardiomediastinal silhouette is within normal limits. No acute osseous injury. XR/XR chest 2V IMPRESSION: No acute pulmonary process.
--- NOTE | ~2022-07-05 | CT_ITS ---
EXAMINATION: CONTRAST-ENHANCED CT OF THE CHEST; CONTRAST-ENHANCED CT OF THE ABDOMEN AND PELVIS INDICATION: Pleuritic chest pain, shortness of breath, abdominal pain COMPARISON: 06/11/2022 TECHNIQUE: 85 mL Omnipaque 350 IV contrast was utilized. Multidetector helical imaging was performed through the chest, abdomen, and pelvis. Coronal and sagittal reformatted images were created at the technologist workstation. DLP: 670 mGy-cm DOSE LOWERING TECHNIQUES: This CT examination was performed using dose optimization techniques as appropriate, variously including the following: - Automated exposure control - Adjustment of mA and/or kV according to patient size (this includes techniques or standardized protocols for targeted exams were dose is matched to indication/reason for exam; i.e. extremities or head) - Use of iterative reconstruction technique FINDINGS: Chest: No regions of consolidation. Interval decrease in the mosaic attenuation appearance from 06/11/2022. A prior 4 mm right lower lobe nodule from that examination is no longer seen, favoring a resolved inflammatory nodule. Mild curvilinear atelectasis noted in the medial right middle lobe. There is a 3 mm left lower lobe nodule on image [id number]/428 which appear stable for greater than 2 years, most consistent with a benign etiology. No pneumothorax or pleural effusion. Visualized thyroid gland is unremarkable. There are subcentimeter mediastinal lymph nodes within the range of normal variation. Cardiac size is within normal limits; no pericardial effusion. The aorta is unremarkable. No axillary lymphadenopathy is present. No acute osseous findings are seen. Abdomen/Pelvis: The liver is homogeneous in attenuation without intrahepatic biliary ductal dilatation. The gallbladder is unremarkable. The spleen and pancreas appear unremarkable. There are redemonstrated bilateral adrenal nodules, measuring up to approximately 1.6 cm on the left; these are without significant change from multiple prior exams, favoring adenomas. Bilateral nephrograms are symmetric. No hydronephrosis. No obstructing renal or ureteral calculi are present. The urinary bladder is unremarkable. Status post hysterectomy. No evidence of bowel obstruction or significant wall thickening. The appendix is unremarkable. No free fluid or free air is identified. Scattered atherosclerotic calcifications are present. No retroperitoneal or pelvic lymphadenopathy is seen. No acute osseous findings. CT/CT abdomen pelvis w IV con IMPRESSION: No new acute findings identified in the chest, abdomen, or pelvis. Improved appearance of the lungs since 06/11/2022. Chronic changes as noted above.
[2022-07-05 22:45] VITALS: BP 152/87; PULSE 103; RESP 17; TEMP 36.8; O2SAT 97; BMI 29.7
--- NOTE | 2022-07-05 22:50 | ECG_ITS ---
Test Reason : CHEST PAIN Blood Pressure : / mmHG Vent. Rate : 101 BPM Atrial Rate : 101 BPM P-R Int : 142 ms QRS Dur : 082 ms QT Int : 366 ms P-R-T Axes : 062 026 043 degrees QTc Int : 474 ms Sinus tachycardia Nonspecific T wave abnormality Abnormal ECG When compared with ECG of 10-JUN-2022 13:50, No significant change was found Referred By: Generic ED Physician Electronically Signed By:RADHA OLIVIER MD
[2022-07-05 23:04] LABS: MANUAL DIFF FLAG NO
[2022-07-05 23:05] LABS: Basophils Percent Auto 0.3 % (0-2); Eosinophils Absolute Auto 0.1 X10*3/uL (0.0-0.4); Eosinophils Percent Auto 0.4 % (0-4); Hematocrit 42.8 % (37.0-47.0); Hemoglobin 14.3 g/dl (12.0-16.0); Imm Gran Abs Auto 0.04 X10*3/uL (0.00-0.03); Imm Gran Pct Auto 0.3 % (0.0-0.4); Lymphocytes Absolute Auto 3.8 X10*3/uL (1.2-4.9); Lymphocytes Percent Auto 27.4 % (20-40); Mean Corpuscular HGB Conc 33.4 g/dl (31.0-35.0); Mean Corpuscular Hemoglobin 29.7 pg (27.0-33.0); Mean Corpuscular Volume 88.8 fL (80.0-98.0); Mean Platelet Volume 9.6 fL (9.4-12.3); Monocytes Absolute Auto 0.6 X10*3/uL (0.1-1.2); Monocytes Percent Auto 3.9 % (2-11); Neutrophils Absolute Auto 9.5 x10*3/uL (2.0-8.3); Neutrophils Percent Auto 67.7 % (45-73); Platelet Count 351 X10*3/uL (160-400); Red Blood Count 4.82 X10*6/uL (4.20-5.50); Red Cell Distribution Width 13.6 % (11.0-16.0)
[2022-07-05 23:23] LABS: Alanine Aminotransferase 57 U/L (0-31); Albumin Level 4.5 g/dL (3.5-5.0); Alkaline Phosphatase 109 U/L (39-117); Anion Gap 20 (12-20); Aspartate Amino Transferase 29 U/L (5-31); Blood Urea Nitrogen 19 mg/dL (9-16); Calcium 9.5 mg/dL (8.4-10.2); Carbon Dioxide 25 mmol/L (22-29); Chloride 96 mmol/L (96-108); Creatinine Clr Calc Pharmacy 64.9; Estimated Glomerular Filt Rate 51; Glucose Random 423 mg/dL (60-115); Lipase 47 U/L (8-78); Potassium 3.6 mmol/L (3.3-5.1); Sodium 137 mmol/L (135-145); Total Protein 7.7 g/dL (6.5-8.0)
[2022-07-05 23:24] LABS: Troponin-I High Sensitivity 7.2 ng/L (<3.5-17.0)
--- NOTE | 2022-07-06 00:51 | ED.CHESTPAIN ---
HPI - Chest Pain General Chief Complaint: Chest Pain <BRUNO Esparza Last Filed: 07/06/22 01:50> Stated Complaint: Chest pain, allergic reaction? , stomach pain <BRUNO Esparza Last Filed: 07/06/22 01:50> Time Seen by Provider: 07/06/22 00:29 <BRUNO Esparza Last Filed: 07/06/22 01:50> Source: patient <BRUNO Esparza Last Filed: 07/06/22 01:50> Mode of arrival: ambulatory <BRUNO Esparza Last Filed: 07/06/22 01:50> Limitations: no limitations <BRUNO Esparza Last Filed: 07/06/22 01:50> History of Present Illness HPI narrative: 47-year-old female history of hepatitis I, diabetes, asthma presenting to the emergency department with complaints of chest pain, shortness of breath, abdominal pain, diarrhea, fatigue, malaise, itchiness x1 day. Patient tells male symptoms started suddenly, she tells me she feels awful. Reports substernal nonradiating chest pain that is sharp and intermittent in nature. She also reports shortness of breath at times that accompanies the pain. She is reporting diffuse abdominal pain, and diarrhea. She reports she had sudden-onset itchiness throughout her whole body worse to her upper torso, patient with known allergy to seafood however has had no seafood.. She tells me she feels like she has very low energy, she feels tired and weak. Denies any recent sick contacts. Tells me last month she had pneumonia. Patient denies fevers, chills, changes in voice, difficulty controlling secretions, headache, vision changes weakness. <BRUNO Esparza Last Filed: 07/06/22 01:50> Related Data Home Medications: Previous Rx's Medication Instructions Recorded amoxicillin 875 mg-potassium 1 tab PO BID #20 tabs 01/22/21 clavulanate 125 mg tablet (Augmentin) dicyclomine 10 mg capsule 10 mg PO BID #20 caps 01/22/21 metronidazole 500 mg tablet 500 mg PO TID #30 tabs 01/22/21 (Flagyl) codeine 10 mg-guaifenesin 100 mg/5 10 ml PO Q4-6H PRN cough #237 mL 04/01/21 mL oral liquid prednisone 20 mg tablet 40 mg PO DAILY #10 tabs 04/01/21 omeprazole 10 mg capsule,delayed 10 mg PO DAILY #20 caps 12/03/21 release albuterol sulfate 0.63 mg/3 mL 0.63 mg (3 mL) inhalation QID PRN 03/05/22 solution for nebulization shortness of breath or wheezing #75 mL albuterol sulfate 90 mcg/actuation 1 inh inhalation QID PRN shortness 03/05/22 aerosol inhaler of breath or wheezing #8.5 grams prednisone 20 mg tablet 20 mg PO DAILY 5 days #5 tabs 03/05/22 amoxicillin 875 mg-potassium 1 tab PO Q12H 7 days #14 tabs 05/29/22 clavulanate 125 mg tablet metronidazole 500 mg tablet 500 mg PO Q8H 7 days #21 tabs 05/29/22 ondansetron 4 mg disintegrating 4 mg PO Q8H PRN nausea and 05/29/22 tablet vomiting #14 tabs oxycodone 5 mg tablet 5 mg PO Q8H PRN pain #7 tabs 05/29/22 albuterol sulfate 90 mcg/actuation 2 inh inhalation Q4-6H PRN 06/11/22 breath activated powder inhaler shortness of breath #1 ea ondansetron 4 mg disintegrating 4 mg PO Q6H PRN nausea and 06/11/22 tablet vomiting #14 tabs prednisone 20 mg tablet 40 mg PO DAILY 5 days #10 tabs 06/11/22 <BRUNO Esparza - Last Filed: 07/06/22 01:50> Allergies/Adverse Reactions: Allergies Allergy/AdvReac Type Severity Reaction Status Date / Time ciprofloxacin [From CIPRO] Allergy Intermediate RASH Verified 07/05/22 22:45 Sulfa (Sulfonamide Allergy Intermediate RASH Verified 07/05/22 22:45 Antibiotics) [SULFA (SULFONAMIDE ANTIBIOTICS)] sulfamethoxazole Allergy Unknown SWELLING Verified 07/05/22 22:45 [From ] trimethoprim [From ] Allergy Unknown SWELLING Verified 07/05/22 22:45 SEAFOOD Allergy Severe ANAPHYLAXIS Uncoded 07/05/22 22:45 <BRUNO Esparza - Last Filed: 07/06/22 01:50> Review of Systems Review of Systems: Constitutional : No Weight loss, No Fever, No Chills, + Fatigue, + Malaise ENT/Mouth : No sore throat, No Rhinorrhea Eyes: No Eye Pain, No Swelling, No Redness Cardiovascular : + Chest Pain, + SOB, No Dyspnea on Exertion, No Orthopnea, No Edema, No Palpitations Respiratory : No Cough, No Sputum, No Wheezing Gastrointestinal : No Nausea, No Vomiting, + Diarrhea, No Constipation, + abdominal Pain, No Hematochezia, No Melena Genitourinary : No Dysuria, No Urinary Frequency, No Hematuria, Musculoskeletal : No joint pain, No Myalgias, No Joint Swelling Skin : No Skin Lesions, No rash Neuro : No Weakness, No Numbness, No Dizziness, No Headache Psych : No Anxiety/Panic, No Depression All other systems reviewed and are negative <BRUNO Esparza Last Filed: 07/06/22 01:50> Yes all other systems are reviewed and are negative <BRUNO Esparza - Last Filed: 07/06/22 01:50> [facility] Past Medical History Attestation statement: The following information was validated with the patient. <BRUNO Esparza - Last Filed: 07/06/22 01:50> Source: old records reviewed and nursing notes reviewed <BRUNO Esparza - Last Filed: 07/06/22 01:50> Medical History: Medical History Asthma Diabetes Hepatitis A <BRUNO Esparza - Last Filed: 07/06/22 01:50> Social History Social History: Social History Alcohol intake: never Advance Directives: No Advance Directives Information Provided: No <BRUNO Esparza Last Filed: 07/06/22 01:50> Physical Exam Vital Signs: Vital Signs: Last Vital Signs Temp 98.6 F 07/06/22 03:58 Pulse 71 07/06/22 03:58 Resp 17 07/06/22 03:58 BP 127/69 07/06/22 03:58 Pulse Ox 96 07/06/22 03:58 O2 Del Method 07/06/22 03:58 BMI result Body Mass Index 29.7 vss slightly tachycardic however <BRUNO Esparza - Last Filed: 07/06/22 01:50> Vital Signs: Last Vital Signs Temp 98.6 F 07/06/22 03:58 Pulse 71 07/06/22 03:58 Resp 17 07/06/22 03:58 BP 127/69 07/06/22 03:58 Pulse Ox 96 07/06/22 03:58 O2 Del Method 07/06/22 03:58 BMI result Body Mass Index 29.7 <Alf Coffman MD - Last Filed: 07/06/22 06:08> Appearance: Alert.? Oriented X3.? No acute distress.? Head: Normocephalic, atraumatic, no step-offs or deformities Eyes: Pupils equal, round and reactive to light.? ENT: Pharynx normal.? Neck: Normal inspection.? Neck supple.? CVS: Rapid rate normal rhythm likely sinus tachycardia.? Pulses normal.? Respiratory: No respiratory distress.? Breath sounds normal.? Abdomen: Soft and diffusely tender abdomen with normoactive bowel sounds.? Skin: Skin warm and dry.? Normal skin color.? Normal skin turgor.? Extremities: No lower extremity edema.? No calf ttp. 5/5 strength to bilateral upper and lower extremities Neuro: Oriented X 3.? No motor deficit.? No sensory deficit. CN 2-12 intact <BRUNO Esparza - Last Filed: 07/06/22 01:50> Course Reevaluation(s) Reevaluation #1: CBC with slight leukocytosis 14, chemistry with slightly elevated BUN likely secondary to dehydration, patient's random glucose 423 will hydrate with fluids, ordered acetone, VBG to rule out DKA. Lipase within normal limits. Chest x-ray with no acute findings. EKG nonischemic, troponin 7.2 will repeat another 1 at this time.. <BRUNO Esparza - Last Filed: 07/06/22 01:50> Time: 01:04 <BRUNO Esparza Last Filed: 07/06/22 01:50> Reevaluation #2: Pending CTA for PE , CT of the abdomen and pelvis, urine, acetone, VBG <BRUNO Esparza - Last Filed: 07/06/22 01:50> Time: 01:06 <BRUNO Esparza - Last Filed: 07/06/22 01:50> Reevaluation #3: Patient's hCG 8 however patient tells me she has a hysterectomy. Flu/COVID/RSV negative. Acetone negative. Very low suspicion for DKA. Scans, urine, VBG pending, repeat room Sign out to night provider pending above and reevaluation. <BRUNO Esparza - Last Filed: 07/06/22 01:50> Time: 01:28 <BRUNO Esparza - Last Filed: 07/06/22 01:50> Additional Reevaluation(s): 0602: The patient states that she is not feeling any better. The patient's laboratory evaluation was unremarkable. Patient's COVID, RSV and flu were negative. Patient's CT scan of her chest, abdomen pelvis did not reveal any clear cause for symptoms. The patient does have a rash on her neck and I do believe that she has an allergic reaction. The patient was given Benadryl 25 mg IV. She was advised to take Benadryl 25 mg 4 times a day for the next 3 days. She was given printed and verbal instructions and discharged home. <Alf Coffman MD - Last Filed: 07/06/22 06:08> Medications Administered Discontinued Medications Generic Name Dose Route Start Last Admin Trade Name Freq PRN Reason Stop Dose Admin Hydroxyzine HCl 25 mg 07/06/22 00:52 07/06/22 02:10 Hydroxyzine Hcl 25 Mg Tablet PO 07/06/22 00:53 25 mg ONCE ONE Administration Sodium Chloride 1,000 mls @ 999 mls/hr 07/06/22 01:00 07/06/22 02:14 Ns IV 07/06/22 02:00 999 mls/hr .Q1H1M SHANTE Administration Sodium Chloride 1,000 mls @ 999 mls/hr 07/06/22 01:15 12/05/22 02:14 Ns IV 07/06/22 02:15 999 mls/hr .Q1H1M SHANTE Administration Insulin Human Lispro 5 unit 07/06/22 01:47 07/06/22 02:10 Insulin Lispro 100 Unit/Ml 3 Ml Vial SUBCUT 07/06/22 01:48 5 unit ONCE ONE Administration Iohexol 85 ml 07/06/22 02:25 07/06/22 02:26 Iohexol 350 Mg/Ml 100 Ml Infus..Btl IV 07/06/22 02:26 85 ml ONCE ONE Administration Ketorolac Tromethamine 30 mg 07/06/22 01:31 07/06/22 02:10 Ketorolac Tromethamine 15 Mg/Ml Vial IVPUSH 07/06/22 01:32 30 mg ONCE ONE Administration <BRUNO Esparza - Last Filed: 07/06/22 01:50> Medications Administered Discontinued Medications Generic Name Dose Route Start Last Admin Trade Name Freq PRN Reason Stop Dose Admin Hydroxyzine HCl 25 mg 07/06/22 00:52 07/06/22 02:10 Hydroxyzine Hcl 25 Mg Tablet PO 07/06/22 00:53 25 mg ONCE ONE Administration Sodium Chloride 1,000 mls @ 999 mls/hr 07/06/22 01:00 07/06/22 02:14 Ns IV 07/06/22 02:00 999 mls/hr .Q1H1M SHANTE Administration Sodium Chloride 1,000 mls @ 999 mls/hr 07/06/22 01:15 07/06/22 02:14 Ns IV 07/06/22 02:15 999 mls/hr .Q1H1M SHANTE Administration Insulin Human Lispro 5 unit 07/06/22 01:47 07/06/22 02:10 Insulin Lispro 100 Unit/Ml 3 Ml Vial SUBCUT 07/06/22 01:48 5 unit ONCE ONE Administration Iohexol 85 ml 07/06/22 02:25 07/06/22 02:26 Iohexol 350 Mg/Ml 100 Ml Infus..Btl IV 07/06/22 02:26 85 ml ONCE ONE Administration Ketorolac Tromethamine 30 mg 07/06/22 01:31 07/06/22 02:10 Ketorolac Tromethamine 15 Mg/Ml Vial IVPUSH 07/06/22 01:32 30 mg ONCE ONE Administration <Alf Coffman MD - Last Filed: 07/06/22 06:08> MDM - Chest Pain MDM Narrative Medical decision making narrative: 0055 47-year-old female presenting with multiple complaints, chest pain, shortness of breath, fatigue, malaise, abdominal pain, diffuse itchiness x1 day. Physical examination with rapid regular rhythm likely sinus tachycardia. Lungs clear. Abdomen diffusely tender. Negative Nora bilaterally, no calf tenderness to palpation on exam. No lower extremity swelling. Neuro nonfocal. Will rule out ACS and PE. Patient PERC score of 1 due to tachycardia. However, unlikely ACS or PE. Low suspicion for pneumonia. All likely viral.. Will also rule out intra-abdominal etiologies although I do not suspect appendicitis, cholecystitis, pancreatitis, diverticulitis. Plan at this time is basic labs, urine, imaging. Viral swabs. <BRUNO Esparza - Last Filed: 07/06/22 01:50> Medical Records Data Attestation: I reviewed the patient's medical records. <BRUNO Esparza - Last Filed: 07/06/22 01:50> Lab Data Attestation: I reviewed the patient's lab results. <BRUNO Esparza - Last Filed: 07/06/22 01:50> Result diagrams: : 07/05/22 22:58 07/05/22 22:58 <BRUNO Esparza - Last Filed: 07/06/22 01:50> Labs: Lab Results 07/05/22 07/05/22 07/05/22 Range/Units 22:58 22:58 22:58 WBC 14.0 H (4.8-10.8) X10*3/uL RBC 4.82 (4.20-5.50) X10*6/uL Hgb 14.3 (12.0-16.0) g/dl Hct 42.8 (37.0-47.0) % MCV 88.8 (80.0-98.0) fL MCH 29.7 (27.0-33.0) pg MCHC 33.4 (31.0-35.0) g/dl RDW 13.6 (11.0-16.0) % Plt Count 351 (160-400) X10*3/uL MPV 9.6 (9.4-12.3) fL Immature Gran % (Auto) 0.3 (0.0-0.4) % Neut % (Auto) 67.7 (45-73) % Lymph % (Auto) 27.4 (20-40) % [place] % (Auto) 3.9 (2-11) % Eos % (Auto) 0.4 (0-4) % Baso % (Auto) 0.3 (0-2) % Lymph # (Auto) 3.8 (1.2-4.9) X10*3/uL [place] # (Auto) 0.6 (0.1-1.2) X10*3/uL Eos # (Auto) 0.1 (0.0-0.4) X10*3/uL Baso # (Auto) 0.0 (0.0-0.2) X10*3/uL Abs Immat Gran (auto) 0.04 H (0.00-0.03) X10*3/uL Absolute Neuts (auto) 9.5 H (2.0-8.3) x10*3/uL Absolute Nucleated RBC 0.000 (0.0-0.012) X10*3/uL Nucleated RBC % (auto) 0.0 (0.0-0.2) /100WBC D-Dimer High Sensitivty NG/ML VBG pH (7.32-7.43) VBG pCO2 mmHg VBG pO2 mmHg VBG HCO3 (22-26) mmol/L VBG O2 Saturation % VBG Base Excess mmol/L Sodium 137 (135-145) mmol/L Potassium 3.6 D (3.3-5.1) mmol/L Chloride 96 (96-108) mmol/L Carbon Dioxide 25 (22-29) mmol/L Anion Gap 20 (12-20) BUN 19 H (9-16) mg/dL Creatinine 1.14 (0.5-1.4) mg/dL Estim Creat Clear Calc 64.9 Estimated GFR 51 Random Glucose 423 H* (60-115) mg/dL Lactic Acid (0.5-2.0) mmol/L Calcium 9.5 (8.4-10.2) mg/dL Total Bilirubin 0.2 (0.0-1.0) mg/dL AST 29 (5-31) U/L ALT 57 H (0-31) U/L Alkaline Phosphatase 109 (39-117) U/L Troponin I High Sens 7.2 D (<3.5-17.0) ng/L Total Protein 7.7 (6.5-8.0) g/dL Albumin 4.5 (3.5-5.0) g/dL Lipase 47 (8-78) U/L Beta HCG, Quant 8 mIU/mL Acetone, Qual Negative (Negative) Influenza Type A (PCR) (Negative) Influenza Type B (PCR) (Negative) RSV RNA Qual (PCR) (Negative) SARS-CoV-2 RNA (RT-PCR) (Negative) 07/06/22 07/06/22 07/06/22 Range/Units 00:34 00:34 01:50 WBC (4.8-10.8) X10*3/uL RBC (4.20-5.50) X10*6/uL Hgb (12.0-16.0) g/dl Hct (37.0-47.0) % MCV (80.0-98.0) fL MCH (27.0-33.0) pg MCHC (31.0-35.0) g/dl RDW (11.0-16.0) % Plt Count (160-400) X10*3/uL MPV (9.4-12.3) fL Immature Gran % (Auto) (0.0-0.4) % Neut % (Auto) (45-73) % Lymph % (Auto) (20-40) % [place] % (Auto) (2-11) % Eos % (Auto) (0-4) % Baso % (Auto) (0-2) % Lymph # (Auto) (1.2-4.9) X10*3/uL [place] # (Auto) (0.1-1.2) X10*3/uL Eos # (Auto) (0.0-0.4) X10*3/uL Baso # (Auto) (0.0-0.2) X10*3/uL Abs Immat Gran (auto) (0.00-0.03) X10*3/uL Absolute Neuts (auto) (2.0-8.3) x10*3/uL Absolute Nucleated RBC (0.0-0.012) X10*3/uL Nucleated RBC % (auto) (0.0-0.2) /100WBC D-Dimer High Sensitivty < 150 NG/ML VBG pH (7.32-7.43) VBG pCO2 mmHg VBG pO2 mmHg VBG HCO3 (22-26) mmol/L VBG O2 Saturation % VBG Base Excess mmol/L Sodium (135-145) mmol/L Potassium (3.3-5.1) mmol/L Chloride (96-108) mmol/L Carbon Dioxide (22-29) mmol/L Anion Gap (12-20) BUN (9-16) mg/dL Creatinine (0.5-1.4) mg/dL Estim Creat Clear Calc Estimated GFR Random Glucose (60-115) mg/dL Lactic Acid 1.1 (0.5-2.0) mmol/L Calcium (8.4-10.2) mg/dL Total Bilirubin (0.0-1.0) mg/dL AST (5-31) U/L ALT (0-31) U/L Alkaline Phosphatase (39-117) U/L Troponin I High Sens (<3.5-17.0) ng/L Total Protein (6.5-8.0) g/dL Albumin (3.5-5.0) g/dL Lipase (8-78) U/L Beta HCG, Quant mIU/mL Acetone, Qual (Negative) Influenza Type A (PCR) NEGATIVE (Negative) Influenza Type B (PCR) NEGATIVE (Negative) RSV RNA Qual (PCR) NEGATIVE (Negative) SARS-CoV-2 RNA (RT-PCR) NEGATIVE (Negative) 07/06/22 07/06/22 Range/Units 01:50 01:53 WBC (4.8-10.8) X10*3/uL RBC (4.20-5.50) X10*6/uL Hgb (12.0-16.0) g/dl Hct (37.0-47.0) % MCV (80.0-98.0) fL MCH (27.0-33.0) pg MCHC (31.0-35.0) g/dl RDW (11.0-16.0) % Plt Count (160-400) X10*3/uL MPV (9.4-12.3) fL Immature Gran % (Auto) (0.0-0.4) % Neut % (Auto) (45-73) % Lymph % (Auto) (20-40) % [place] % (Auto) (2-11) % Eos % (Auto) (0-4) % Baso % (Auto) (0-2) % Lymph # (Auto) (1.2-4.9) X10*3/uL [place] # (Auto) (0.1-1.2) X10*3/uL Eos # (Auto) (0.0-0.4) X10*3/uL Baso # (Auto) (0.0-0.2) X10*3/uL Abs Immat Gran (auto) (0.00-0.03) X10*3/uL Absolute Neuts (auto) (2.0-8.3) x10*3/uL Absolute Nucleated RBC (0.0-0.012) X10*3/uL Nucleated RBC % (auto) (0.0-0.2) /100WBC D-Dimer High Sensitivty NG/ML VBG pH 7.44 H (7.32-7.43) VBG pCO2 36 mmHg VBG pO2 71 mmHg VBG HCO3 24 (22-26) mmol/L VBG O2 Saturation 94.0 % VBG Base Excess 1.0 mmol/L Sodium (135-145) mmol/L Potassium (3.3-5.1) mmol/L Chloride (96-108) mmol/L Carbon Dioxide (22-29) mmol/L Anion Gap (12-20) BUN (9-16) mg/dL Creatinine (0.5-1.4) mg/dL Estim Creat Clear Calc Estimated GFR Random Glucose (60-115) mg/dL Lactic Acid (0.5-2.0) mmol/L Calcium (8.4-10.2) mg/dL Total Bilirubin (0.0-1.0) mg/dL AST (5-31) U/L ALT (0-31) U/L Alkaline Phosphatase (39-117) U/L Troponin I High Sens 4.1 (<3.5-17.0) ng/L Total Protein (6.5-8.0) g/dL Albumin (3.5-5.0) g/dL Lipase (8-78) U/L Beta HCG, Quant mIU/mL Acetone, Qual (Negative) Influenza Type A (PCR) (Negative) Influenza Type B (PCR) (Negative) RSV RNA Qual (PCR) (Negative) SARS-CoV-2 RNA (RT-PCR) (Negative) <BRUNO Esparza - Last Filed: 07/06/22 01:50> Lab Results 07/05/22 07/05/22 07/05/22 Range/Units 22:58 22:58 22:58 WBC 14.0 H (4.8-10.8) X10*3/uL RBC 4.82 (4.20-5.50) X10*6/uL Hgb 14.3 (12.0-16.0) g/dl Hct 42.8 (37.0-47.0) % MCV 88.8 (80.0-98.0) fL MCH 29.7 (27.0-33.0) pg MCHC 33.4 (31.0-35.0) g/dl RDW 13.6 (11.0-16.0) % Plt Count 351 (160-400) X10*3/uL MPV 9.6 (9.4-12.3) fL Immature Gran % (Auto) 0.3 (0.0-0.4) % Neut % (Auto) 67.7 (45-73) % Lymph % (Auto) 27.4 (20-40) % [place] % (Auto) 3.9 (2-11) % Eos % (Auto) 0.4 (0-4) % Baso % (Auto) 0.3 (0-2) % Lymph # (Auto) 3.8 (1.2-4.9) X10*3/uL [place] # (Auto) 0.6 (0.1-1.2) X10*3/uL Eos # (Auto) 0.1 (0.0-0.4) X10*3/uL Baso # (Auto) 0.0 (0.0-0.2) X10*3/uL Abs Immat Gran (auto) 0.04 H (0.00-0.03) X10*3/uL Absolute Neuts (auto) 9.5 H (2.0-8.3) x10*3/uL Absolute Nucleated RBC 0.000 (0.0-0.012) X10*3/uL Nucleated RBC % (auto) 0.0 (0.0-0.2) /100WBC D-Dimer High Sensitivty NG/ML VBG pH (7.32-7.43) VBG pCO2 mmHg VBG pO2 mmHg VBG HCO3 (22-26) mmol/L VBG O2 Saturation % VBG Base Excess mmol/L Sodium 137 (135-145) mmol/L Potassium 3.6 D (3.3-5.1) mmol/L Chloride 96 (96-108) mmol/L Carbon Dioxide 25 (22-29) mmol/L Anion Gap 20 (12-20) BUN 19 H (9-16) mg/dL Creatinine 1.14 (0.5-1.4) mg/dL Estim Creat Clear Calc 64.9 Estimated GFR 51 Random Glucose 423 H* (60-115) mg/dL Lactic Acid (0.5-2.0) mmol/L Calcium 9.5 (8.4-10.2) mg/dL Total Bilirubin 0.2 (0.0-1.0) mg/dL AST 29 (5-31) U/L ALT 57 H (0-31) U/L Alkaline Phosphatase 109 (39-117) U/L Troponin I High Sens 7.2 D (<3.5-17.0) ng/L Total Protein 7.7 (6.5-8.0) g/dL Albumin 4.5 (3.5-5.0) g/dL Lipase 47 (8-78) U/L Beta HCG, Quant 8 mIU/mL Acetone, Qual Negative (Negative) Influenza Type A (PCR) (Negative) Influenza Type B (PCR) (Negative) RSV RNA Qual (PCR) (Negative) SARS-CoV-2 RNA (RT-PCR) (Negative) 07/06/22 07/06/22 07/06/22 Range/Units 00:34 00:34 01:50 WBC (4.8-10.8) X10*3/uL RBC (4.20-5.50) X10*6/uL Hgb (12.0-16.0) g/dl Hct (37.0-47.0) % MCV (80.0-98.0) fL MCH (27.0-33.0) pg MCHC (31.0-35.0) g/dl RDW (11.0-16.0) % Plt Count (160-400) X10*3/uL MPV (9.4-12.3) fL Immature Gran % (Auto) (0.0-0.4) % Neut % (Auto) (45-73) % Lymph % (Auto) (20-40) % [place] % (Auto) (2-11) % Eos % (Auto) (0-4) % Baso % (Auto) (0-2) % Lymph # (Auto) (1.2-4.9) X10*3/uL [place] # (Auto) (0.1-1.2) X10*3/uL Eos # (Auto) (0.0-0.4) X10*3/uL Baso # (Auto) (0.0-0.2) X10*3/uL Abs Immat Gran (auto) (0.00-0.03) X10*3/uL Absolute Neuts (auto) (2.0-8.3) x10*3/uL Absolute Nucleated RBC (0.0-0.012) X10*3/uL Nucleated RBC % (auto) (0.0-0.2) /100WBC D-Dimer High Sensitivty < 150 NG/ML VBG pH (7.32-7.43) VBG pCO2 mmHg VBG pO2 mmHg VBG HCO3 (22-26) mmol/L VBG O2 Saturation % VBG Base Excess mmol/L Sodium (135-145) mmol/L Potassium (3.3-5.1) mmol/L Chloride (96-108) mmol/L Carbon Dioxide (22-29) mmol/L Anion Gap (12-20) BUN (9-16) mg/dL Creatinine (0.5-1.4) mg/dL Estim Creat Clear Calc Estimated GFR Random Glucose (60-115) mg/dL Lactic Acid 1.1 (0.5-2.0) mmol/L Calcium (8.4-10.2) mg/dL Total Bilirubin (0.0-1.0) mg/dL AST (5-31) U/L ALT (0-31) U/L Alkaline Phosphatase (39-117) U/L Troponin I High Sens (<3.5-17.0) ng/L Total Protein (6.5-8.0) g/dL Albumin (3.5-5.0) g/dL Lipase (8-78) U/L Beta HCG, Quant mIU/mL Acetone, Qual (Negative) Influenza Type A (PCR) NEGATIVE (Negative) Influenza Type B (PCR) NEGATIVE (Negative) RSV RNA Qual (PCR) NEGATIVE (Negative) SARS-CoV-2 RNA (RT-PCR) NEGATIVE (Negative) 07/06/22 07/06/22 Range/Units 01:50 01:53 WBC (4.8-10.8) X10*3/uL RBC (4.20-5.50) X10*6/uL Hgb (12.0-16.0) g/dl Hct (37.0-47.0) % MCV (80.0-98.0) fL MCH (27.0-33.0) pg MCHC (31.0-35.0) g/dl RDW (11.0-16.0) % Plt Count (160-400) X10*3/uL MPV (9.4-12.3) fL Immature Gran % (Auto) (0.0-0.4) % Neut % (Auto) (45-73) % Lymph % (Auto) (20-40) % [place] % (Auto) (2-11) % Eos % (Auto) (0-4) % Baso % (Auto) (0-2) % Lymph # (Auto) (1.2-4.9) X10*3/uL [place] # (Auto) (0.1-1.2) X10*3/uL Eos # (Auto) (0.0-0.4) X10*3/uL Baso # (Auto) (0.0-0.2) X10*3/uL Abs Immat Gran (auto) (0.00-0.03) X10*3/uL Absolute Neuts (auto) (2.0-8.3) x10*3/uL Absolute Nucleated RBC (0.0-0.012) X10*3/uL Nucleated RBC % (auto) (0.0-0.2) /100WBC D-Dimer High Sensitivty NG/ML VBG pH 7.44 H (7.32-7.43) VBG pCO2 36 mmHg VBG pO2 71 mmHg VBG HCO3 24 (22-26) mmol/L VBG O2 Saturation 94.0 % VBG Base Excess 1.0 mmol/L Sodium (135-145) mmol/L Potassium (3.3-5.1) mmol/L Chloride (96-108) mmol/L Carbon Dioxide (22-29) mmol/L Anion Gap (12-20) BUN (9-16) mg/dL Creatinine (0.5-1.4) mg/dL Estim Creat Clear Calc Estimated GFR Random Glucose (60-115) mg/dL Lactic Acid (0.5-2.0) mmol/L Calcium (8.4-10.2) mg/dL Total Bilirubin (0.0-1.0) mg/dL AST (5-31) U/L ALT (0-31) U/L Alkaline Phosphatase (39-117) U/L Troponin I High Sens 4.1 (<3.5-17.0) ng/L Total Protein (6.5-8.0) g/dL Albumin (3.5-5.0) g/dL Lipase (8-78) U/L Beta HCG, Quant mIU/mL Acetone, Qual (Negative) Influenza Type A (PCR) (Negative) Influenza Type B (PCR) (Negative) RSV RNA Qual (PCR) (Negative) SARS-CoV-2 RNA (RT-PCR) (Negative) <Alf Coffman MD - Last Filed: 07/06/22 06:08> Critical Care Time Critical Care Time Critical Care Time: No <BRUNO Esparza - Last Filed: 07/06/22 01:50> Discharge Plan Discharge Clinical Impression: Chest pain, Shortness of breath, Rash, Abdominal pain, Allergic reaction <BRUNO Esparza - Last Filed: 07/06/22 01:50> Patient Disposition: Home, Self-Care <BRUNO Esparza - Last Filed: 07/06/22 01:50> Additional Instructions: Your laboratory evaluation was unremarkable except for an elevated glucose. Your CT scan of the chest, abdomen pelvis did not reveal a clear cause for your symptoms. Given the rash they have a new neck, I suspect that your having an allergic reaction You were treated with Benadryl 25 mg IV. Take Benadryl 25 mg pills, 1 pill 4 times a day for the next 3 days to see if this improves her symptoms Follow-up with your doctor in 2 days. Please return to the emergency department if your symptoms get worse or if you develop any symptoms that are concerning to you. Please see return to work note. <BRUNO Esparza - Last Filed: 07/06/22 01:50> Prescriptions: No Action amoxicillin-pot clavulanate [Augmentin] 875-125 mg tablet 1 tab PO BID Qty: 20 0RF metronidazole [Flagyl] 500 mg tablet 500 mg PO TID Qty: 30 0RF dicyclomine 10 mg capsule 10 mg PO BID Qty: 20 0RF prednisone 20 mg tablet 40 mg PO DAILY Qty: 10 0RF codeine-guaifenesin 10-100 mg/5 mL liquid 10 ml PO Q4-6H PRN (Reason: cough) Qty: 237 0RF omeprazole 10 mg capsule,delayed release(DR/EC) 10 mg PO DAILY Qty: 20 0RF ondansetron 4 mg tablet,disintegrating 4 mg PO Q6H PRN (Reason: nausea and vomiting) Qty: 14 0RF albuterol sulfate 90 mcg/actuation aerosol powdr breath activated 2 inh inhalation Q4-6H PRN (Reason: shortness of breath) Qty: 1 0RF prednisone 20 mg tablet 40 mg PO DAILY 5 Days Qty: 10 0RF albuterol sulfate 0.63 mg/3 mL solution for nebulization 0.63 mg inhalation QID PRN (Reason: shortness of breath or wheezing) Qty: 75 0RF albuterol sulfate 90 mcg/actuation HFA aerosol inhaler 1 inh inhalation QID PRN (Reason: shortness of breath or wheezing) Qty: 8.5 0RF prednisone 20 mg tablet 20 mg PO DAILY 5 Days Qty: 5 0RF amoxicillin-pot clavulanate 875-125 mg tablet 1 tab PO Q12H 7 Days Qty: 14 0RF metronidazole 500 mg tablet 500 mg PO Q8H 7 Days Qty: 21 0RF oxycodone 5 mg tablet 5 mg PO Q8H PRN (Reason: pain) Qty: 7 0RF Rx Instructions: Partial Fill upon patient request. ondansetron 4 mg tablet,disintegrating 4 mg PO Q8H PRN (Reason: nausea and vomiting) Qty: 14 0RF <BRUNO Esparza - Last Filed: 07/06/22 01:50> Referrals: Jose Doshi MD [Primary Care Provider] - 3 days <BRUNO Esparza - Last Filed: 07/06/22 01:50> Stand Alone Forms: Work/School Release <BRUNO Esparza - Last Filed: 07/06/22 01:50>
[2022-07-06 01:08] LABS: HCG Quantitative 8 mIU/mL
[2022-07-06 01:18] LABS: Influenza A PCR NEGATIVE (Negative); Influenza B PCR NEGATIVE (Negative); Resp Syncy Virus RNA Qual PCR NEGATIVE (Negative); SARS COV2 PCR INHOUSE NEGATIVE (Negative)
[2022-07-06 01:21] LABS: Bilirubin Total 0.2 mg/dL (0.0-1.0)
[2022-07-06 01:35] LABS: Acetone, serum QL Negative (Negative)
[2022-07-06 01:35] LABS: D Dimer High Sensitivity < 150 NG/ML
[2022-07-06 02:03] LABS: VBG HCO3 24 mmol/L (22-26); VBG pCO2 36 mmHg; VBG pH 7.44 (7.32-7.43); VBG pO2 71 mmHg
[2022-07-06 02:03] LABS: Venous Blood Gas Refer to POC result
[2022-07-06 02:09] LABS: Lactic Acid 1.1 mmol/L (0.5-2.0)
[2022-07-06] MEDS: Insulin Lispro 100 UNIT/ML 3 ML VIAL SUBCUT (02:10)
[2022-07-06] MEDS: hydrOXYzine HCL 25 MG TABLET PO (02:10)
[2022-07-06] MEDS: Ketorolac Tromethamine 15 MG/ML VIAL 30 MG IVPUSH (02:10)
[2022-07-06] MEDS: 0.9 % Sodium Chloride 1,000 ML 999 ML IV ×2 (02:14)
[2022-07-06 02:21] LABS: Troponin-I High Sensitivity 4.1 ng/L (<3.5-17.0)
[2022-07-06] MEDS: iohexoL 350 MG/ML 100 ML INFUS..BTL 85 ML IV (02:26)
[2022-07-06 02:34] VITALS: BP 137/86; PULSE 76; RESP 18; TEMP 36.4; O2SAT 95
[2022-07-06 03:58] VITALS: BP 127/69; PULSE 71; RESP 17; TEMP 37; O2SAT 96
[2022-07-06 04:28] LABS: Appearance Urine Clear; Color Urine Yellow; Glucose Urine UA >=1000 mg/dL (Negative); Leukocyte Esterase Urine Negative (Negative); Nitrite Urine Negative (Negative); Specific Gravity - Urine >= 1.030 (1.005-1.025); UMIC TRIGGER UACC YES; Urine Blood Trace (Negative); Urine Ketones Negative (Negative); Urine Protein Negative (Neg-Trace)
[2022-07-06 05:53] LABS: Bacteria Urine None Seen (None Seen); Hyaline Casts Urine 0-2 /LPF (0-2); RBC Urine 0-2 /HPF (0-2); Squamous Epithelial Cell Urine 0-2 /HPF (0-2); WBC Urine 0-5 /HPF (0-5)
[2022-07-06 06:19] VITALS: BP 111/61; PULSE 87; RESP 18; TEMP 36.4; O2SAT 96
[2022-07-06] MEDS: diphenhydrAMINE HCL 50 MG/ML VIAL 25 MG IVPUSH (06:25)
--- NOTE | 2022-07-06 06:33 | PC.NURSE ---
pt a&o,no sob or chest pain. Reviewed discharge instructions with pt. pt verbalized understanding.
== END 2022-07-06 06:36 | disposition home or self-care (01) ==
PROVIDERS: Physician Assistant; Emergency Provider Emergency Medicine Emergency Medical Services; PCP Internal Medicine
DX: R07.89 Other chest pain (principal); R06.02 Shortness of breath; M54.6 Pain in thoracic spine; R21 Rash and other nonspecific skin eruption; R10.9 Unspecified abdominal pain; Z20.822 Contact with and (suspected) exposure to COVID-19; Z79.899 Other long term (current) drug therapy
CPT/HCPCS: 0241U; 36415; 71046; 71260; 74177; 80053; 81001; 81003; 82009; 82803; 83605; 83690; 84484; 84702; 85025; 85379; 87040; 93005; 96374; 96375; 99285; J1200; J1885; Q9967

== ENCOUNTER 2022-08-10 12:56 | Emergency (ER) | payer OTHER, SELFPAY ==
--- NOTE | ~2022-08-10 | US_ITS ---
EXAMINATION: US ABDOMEN LIMITED CLINICAL INFORMATION: Right upper quadrant pain.. COMPARISON: Abdomen CT from 07/06/2022 TECHNIQUE: Real-time imaging of the right upper quadrant abdominal viscera. FINDINGS: PANCREAS: Normal. LIVER: Liver has normal size and contour. The parenchyma is diffusely hyperechoic. No focal lesion or intrahepatic bile duct dilatation. GALLBLADDER: Normal. The gallbladder is underdistended and without evidence of stones, sludge, polyps, wall thickening or pericholecystic fluid. COMMON BILE DUCT: Normal in caliber measuring 0.3 cm in diameter. RIGHT KIDNEY: Normal. No hydronephrosis. No renal calculi or focal parenchymal lesions. The kidney measures 10.9 cm in maximum dimension. FREE FLUID: None. US/US abdomen limited IMPRESSION: * No evidence of cholelithiasis, cholecystitis or biliary tract obstruction. * Liver is diffusely hyperechoic which suggests presence of steatosis. * Otherwise, unremarkable right upper quadrant ultrasound examination.
--- NOTE | ~2022-08-10 | CT_ITS ---
EXAMINATION: CT ABDOMEN AND PELVIS WITH CONTRAST CLINICAL INFORMATION: Right-sided lower abdominal pain COMPARISON: CT abdomen pelvis 07/06/2022, 01/21/2017 TECHNIQUE: Multidetector volumetric images were obtained from the superior aspect of the liver through the pubic symphysis following administration 85 mL of Omnipaque 350 intravenous contrast. Sagittal and coronal reformatted images were obtained on the technologist's workstation. Oral contrast: No This CT examination was performed using dose optimization techniques as appropriate, variously including the following: *Automated exposure control *Adjustment of mA and/or kV according to patient size (this includes techniques or standardized protocols for targeted exams where dose is matched to indication/reason for exam; i.e. extremities or head) *Use of iterative reconstruction technique DLP: 443 mGy-cm FINDINGS: LUNG BASES: Minimal bibasilar atelectasis. LIVER, GALLBLADDER, AND BILIARY TREE: Mild hepatomegaly with liver measuring 18 cm in length. Normal hepatic attenuation. No liver lesion. No focal hepatic lesion or biliary ductal dilatation is present. The gallbladder is unremarkable with no evidence of radiopaque gallstones, gallbladder wall thickening, or obvious pericholecystic inflammatory changes. PANCREAS: Unremarkable. SPLEEN: Unremarkable. ADRENAL GLANDS: Unchanged 1.9 cm left adrenal nodule and 2 small left adrenal nodules, largest 1 cm in size, indeterminate on this study, but unchanged since 2017. KIDNEYS AND URETERS: The kidneys are normal in size, shape, and attenuation. No hydronephrosis, hydroureter, or calculi seen. No perinephric stranding. BLADDER: Prominently distended. No bladder wall thickening. GASTROINTESTINAL TRACT: Moderate amount of formed stool throughout the nondilated colon most prominently in the right and transverse colon. No dilated bowel loops. No bowel wall thickening. Normal appendix. No free air or ascites. ABDOMINAL WALL: No significant hernia is appreciated. LYMPH NODES: No lymphadenopathy. VASCULAR: Normal caliber abdominal aorta. Mild ex calcified noncalcified atherosclerotic plaque. PELVIC VISCERA: Status post hysterectomy. OSSEOUS STRUCTURES: No acute fracture or suspicious osseous lesion. CT/CT abdomen pelvis w IV con IMPRESSION: 1. No evidence of acute appendicitis or other acute intra-abdominal process. 2. Moderate amount of formed stool within the colon most prominently in the right and transverse colon. Correlate clinically with signs or symptoms of constipation. 3. Mild hepatomegaly. 4. Unchanged indeterminate left adrenal nodules, stability since 2017 consistent with benign etiology such as adenomas.
--- NOTE | ~2022-08-10 | XR_ITS ---
EXAMINATION: XR RIBS, RIGHT CLINICAL INFORMATION: Right-sided rib pain COMPARISON: Chest x-ray 07/05/2022. CT of chest 07/06/2022 TECHNIQUE: Single view of chest 3 views of the right ribs were obtained. The marker placed at the lower right ribs. FINDINGS: Rounded 1.5 cm nodule consistent with nipple shadows both lung bases. (No lung mass seen on CT chest 07/06/2022.) No acute abnormality of the chest. Lungs are clear. No consolidation, pneumothorax, or pleural effusion. The cardiomediastinal silhouette and pulmonary vasculature are normal. Osseous structures are unremarkable. Ribs are intact. No fractures are identified. XR/XR ribs RT min 3V w CXR1V IMPRESSION: Unremarkable examination.
[2022-08-10 13:02] VITALS: BP 143/80; PULSE 95; RESP 18; TEMP 36.7; O2SAT 99; BMI 26.6
--- NOTE | 2022-08-10 13:03 | ED_ITS ---
HPI - General Adult General Chief complaint: Abdominal Pain <BRUNO Ledezma - Last Filed: 08/10/22 13:09> Stated complaint: R eye issue. L arm/back issue <BRUNO Ledezma - Last Filed: 08/10/22 13:09> Time Seen by Provider: 08/10/22 15:09 <BRUNO Ledezma - Last Filed: 08/10/22 13:09> Source: patient <Zuleima Romero NP - Last Filed: 08/10/22 23:24> Mode of arrival: ambulatory <Zuleima Romero NP - Last Filed: 08/10/22 23:24> Limitations: no limitations <Zuleima Romero NP - Last Filed: 08/10/22 23:24> History of Present Illness HPI narrative: 47-year-old female presents with multiple concerns, right eye pain and blurriness with tearing, abscess under her right arm, and right flank pain for the past several days. <Zuleima Romero NP - Last Filed: 08/10/22 23:24> Onset (ago): week(s) (1) <Zuleima Romero NP - Last Filed: 08/10/22 23:24> Location: upper extremity <Zuleima oRmero NP - Last Filed: 08/10/22 23:24> Radiation: non-radiation <Zuleima Romero NP - Last Filed: 08/10/22 23:24> Severity: moderate <Zuleima Romero NP - Last Filed: 08/10/22 23:24> Severity scale (1-10): 5 <Zuleima Romero NP - Last Filed: 08/10/22 23:24> Quality: aching <Zuleima Romero NP - Last Filed: 08/10/22 23:24> Pain Consistency: constant <Zuleima Romero NP - Last Filed: 08/10/22 23:24> Relieving factors: none <Zuleima Romero NP - Last Filed: 08/10/22 23:24> Exacerbating factors: movement <Zuleima Romero NP - Last Filed: 08/10/22 23:24> Related Data Home medications: Previous Rx's Medication Instructions Recorded amoxicillin 875 mg-potassium 1 tab PO BID #20 tabs 01/22/21 clavulanate 125 mg tablet (Augmentin) dicyclomine 10 mg capsule 10 mg PO BID #20 caps 01/22/21 metronidazole 500 mg tablet 500 mg PO TID #30 tabs 01/22/21 (Flagyl) codeine 10 mg-guaifenesin 100 mg/5 10 ml PO Q4-6H PRN cough #237 mL 04/01/21 mL oral liquid prednisone 20 mg tablet 40 mg PO DAILY #10 tabs 04/01/21 omeprazole 10 mg capsule,delayed 10 mg PO DAILY #20 caps 12/03/21 release albuterol sulfate 0.63 mg/3 mL 0.63 mg (3 mL) inhalation QID PRN 03/05/22 solution for nebulization shortness of breath or wheezing #75 mL albuterol sulfate 90 mcg/actuation 1 inh inhalation QID PRN shortness 03/05/22 aerosol inhaler of breath or wheezing #8.5 grams prednisone 20 mg tablet 20 mg PO DAILY 5 days #5 tabs 03/05/22 amoxicillin 875 mg-potassium 1 tab PO Q12H 7 days #14 tabs 05/29/22 clavulanate 125 mg tablet metronidazole 500 mg tablet 500 mg PO Q8H 7 days #21 tabs 05/29/22 ondansetron 4 mg disintegrating 4 mg PO Q8H PRN nausea and 05/29/22 tablet vomiting #14 tabs oxycodone 5 mg tablet 5 mg PO Q8H PRN pain #7 tabs 05/29/22 albuterol sulfate 90 mcg/actuation 2 inh inhalation Q4-6H PRN 06/11/22 breath activated powder inhaler shortness of breath #1 ea ondansetron 4 mg disintegrating 4 mg PO Q6H PRN nausea and 06/11/22 tablet vomiting #14 tabs prednisone 20 mg tablet 40 mg PO DAILY 5 days #10 tabs 06/11/22 doxycycline monohydrate 100 mg 100 mg PO BID 10 days #20 caps 08/10/22 capsule erythromycin 5 mg/gram (0.5 %) eye 0.5 inch ophthalmic (eye) Q4H 5 08/10/22 ointment days #3.5 grams ibuprofen 600 mg tablet 600 mg PO Q6H PRN pain #60 tabs 08/10/22 oxycodone 5 mg tablet 5 mg PO Q8H PRN pain #7 tabs 08/10/22 <BRUNO Ledezma - Last Filed: 08/10/22 13:09> Allergies/adverse reactions: Allergies Allergy/AdvReac Type Severity Reaction Status Date / Time ciprofloxacin [From CIPRO] Allergy Intermediate RASH Verified 07/05/22 22:45 Sulfa (Sulfonamide Allergy Intermediate RASH Verified 07/05/22 22:45 Antibiotics) [SULFA (SULFONAMIDE ANTIBIOTICS)] sulfamethoxazole Allergy Unknown SWELLING Verified 07/05/22 22:45 [From SEPTRA] trimethoprim [From APRRA] Allergy Unknown SWELLING Verified 07/05/22 22:45 SEAFOOD Allergy Severe ANAPHYLAXIS Uncoded 07/05/22 22:45 <BRUNO Ledezma - Last Filed: 08/10/22 13:09> Review of Systems Review of Systems: Constitutional: No Fever, No Chills ENT/Mouth: No Ear Pain, No Hoarseness, No sore throat, positive congestion Eyes: Positive right eye Eye Pain, No Swelling, positive right eye Redness, No Foreign Body Cardiovascular: No Chest Pain, No SOB Respiratory: Positive Cough, No Dyspnea Gastrointestinal: No Nausea, No Vomiting, No Diarrhea, positive right flank and abdominal Pain Genitourinary: No Dysuria, No Hematuria Musculoskeletal: positive right axilla pain, No Myalgias, No Joint Swelling Skin: No Skin lacerations, No rash Neuro: No Weakness, No Numbness, No Paresthesias, No Dizziness, No Headache <Zuleima Romero NP - Last Filed: 08/10/22 23:24> Yes all other systems are reviewed and are negative <Zuleima Romero NP - Last Filed: 08/10/22 23:24> PMFSH Past Medical History Attestation statement: The following information was validated with the patient. <Zuleima Romero NP - Last Filed: 08/10/22 23:24> Source: old records reviewed <Zuleima Romero NP - Last Filed: 08/10/22 23:24> Medical History: Medical History Asthma Diabetes Hepatitis A <BRUNO Ledezma - Last Filed: 08/10/22 13:09> Social History Social History: Social History Alcohol intake: never Advance Directives: No Advance Directives Information Provided: Yes <BRUNO Ledezma - Last Filed: 08/10/22 13:09> Physical Exam ED Vital Signs: Vital Signs - 24 hr 08/10/22 13:02 08/10/22 15:37 Temperature 98.0 F 98.7 F Pulse Rate 95 86 Respiratory Rate 18 15 Blood Pressure 143/80 H 122/77 Pulse Oximetry 99 99 Oxygen Delivery Method Room Air Room Air BMI result Body Mass Index 26.6 <BRUNO Ledezma - Last Filed: 08/10/22 13:09> Vital Signs - 24 hr 08/10/22 13:02 08/10/22 15:37 Temperature 98.0 F 98.7 F Pulse Rate 95 86 Respiratory Rate 18 15 Blood Pressure 143/80 H 122/77 Pulse Oximetry 99 99 Oxygen Delivery Method Room Air Room Air BMI result Body Mass Index 26.6 <Zuleima Romero NP - Last Filed: 08/10/22 23:24> Appearance: Alert. Oriented X3. Moderate distress. Eyes: Pupils equal, round and reactive to light. Conjunctival abrasion noted at the 6 o'clock position about 2 mm from the iris. No pain on extraocular movement. No indication of entrapment. No foreign body. ENT: Pharynx normal. No cervical lymphadenopathy. No mastoid tenderness. Neck: Normal inspection. Neck supple. No nuchal rigidity. CVS: Normal heart rate and rhythm. Pulses normal. Respiratory: No respiratory distress. Breath sounds normal. Abdomen: Soft and right CVA and right lower quadrant abdominal pain to palpation. Skin: 5 cm in diameter abscess with fluctuance to the right axilla. Extremities: No lower extremity edema. Gait well-balanced will coordinated Neuro: No motor deficit. No sensory deficit. Cranial nerves 2-12 intact <Zuleima Romero NP - Last Filed: 08/10/22 23:24> Course Course Course Narrative: RME-- 47yo F w/PMHx Asthma, DM, Hepatitis A, c/o blurry vision to R eye, RUE infection/pain, fever, and R flank pain x 2 days. Right eye with notable conjunctival injection, abscess noted to right axilla which will need I&D. Abdomen soft with RUQ tenderness and right-sided rib tenderness Labs, UA, rib series, abdomen ultrasound, tetracaine/foreseen ordered in triage <BRUNO Ledezma - Last Filed: 08/10/22 13:09> RME-- 47yo F w/PMHx Asthma, DM, Hepatitis A, c/o blurry vision to R eye, RUE infection/pain, fever, and R flank pain x 2 days. Right eye with notable conjunctival injection, abscess noted to right axilla which will need I&D. Abdomen soft with RUQ tenderness and right-sided rib tenderness Labs, UA, rib series, abdomen ultrasound, tetracaine/foreseen ordered in triage 47-year-old female presents for multiple concerns. One right eye. There is fluorescein uptake consistent with a conjunctival abras ion. Do not appreciate any globe rupture, hyphema, foreign body, funduscopic exam is normal with limited exam. Plan of care is for erythromycin eye ointment and follow up with Ophthalmology. Two abscess under right axilla. There is a 5 cm area of cellulitis with pocket of fluctuance. I&D successful, prepped and draped in sterile fashion. Approximately 60 mL of purulent malodorous drainage. Loculations broken up with manual pressure. Although painful even with anesthetic, patient tolerated procedure well. Packed with approximately 6 in of iodoform dressing. Plan of care is for patient to follow-up with Dr. Vásquez as she has recurrent abscesses consistent with hidradenitis suppurative. Will treat with doxycycline. Three [address] scan of abdomen and pelvis is negative for acute findings, ultrasound is negative. There are benign findings of constipation. Patient is supposed to take MiraLax daily however she has not been keeping up on that medication regimen. At this time I do not feel disimpaction or enema is appropriate. Patient will take MiraLax at home. Four elevated blood sugar. Patient is diabetic, will take medications once she gets home patient is not exhibiting any signs of hyperglycemic complications, diabetic ketoacidosis. Patient understands discharge instructions for abscess, will follow up with her primary care physician, will return in 3 days for packing removal. She does understand that she should return further evaluation as this abdominal pain could always be an early appendicitis. hourly sign language interpreter utilized for all correspondence. Google translate utilized for discharge instructions. <Zuleima Romero, ULTRASONIC TESTER - Last Filed: 08/10/22 23:24> Medications Administered Discontinued Medications Generic Name Dose Route Start Last Admin Trade Name Karolina PRN Reason Stop Dose Admin Bupivacaine HCl/Epinephrine Bitart 10 ml 08/10/22 15:24 08/10/22 16:29 Bupivacaine Mpf 0.5% W/Epi 1:200,000 10 Ml Vial INFILTRATI 08/10/22 15:25 Not Given ONCE ONE Diphtheria/Tetanus/Acell Pertussis 0.5 ml 08/10/22 17:34 08/10/22 17:56 Diphth,Pertus(Acell),Tet Adult 0.5 Ml Syringe IM 08/10/22 17:35 0.5 ml .ONCE ONE Administration Doxycycline Monohydrate 100 mg 08/10/22 15:24 08/10/22 16:27 Doxycycline Monohydrate 100 Mg Capsule PO 08/10/22 15:25 100 mg ONCE ONE Administration Erythromycin 1 cm 08/10/22 16:28 08/10/22 16:38 Erythromycin Base 0.5% Oph Oin 1 Gm Tube EYE-RIGHT 08/10/22 16:29 1 cm ONCE ONE Administration Fluorescein Sodium 1 strip 08/10/22 13:05 08/10/22 16:27 Fluorescein Sodium Strip EYE-RIGHT 08/10/22 13:06 1 strip ONCE ONE Administration Iohexol 100 ml 08/10/22 16:01 08/10/22 16:02 Iohexol 350 Mg/Ml 100 Ml Infus..Btl IV 08/10/22 16:02 85 ml ONCE ONE Administration Lidocaine HCl 5 ml 08/10/22 13:05 08/10/22 16:27 Lidocaine Hcl 1 % Mpf 5 Ml Vial INFILTRATI 08/10/22 13:06 5 ml ONCE ONE Administration Lidocaine HCl 5 ml 08/10/22 15:14 08/10/22 16:28 Lidocaine Hcl 2 % Mpf 5 Ml Vial INFILTRATI 08/10/22 15:15 Not Given ONCE ONE Morphine Sulfate 4 mg 08/10/22 16:28 08/10/22 16:37 Morphine Sulfate 4 Mg/Ml Cartridge IVPUSH 08/10/22 16:29 4 mg ONCE ONE Administration Protocol Ondansetron HCl 4 mg 08/10/22 16:28 08/10/22 16:37 Ondansetron Hcl 4 Mg/2 Ml Vial IVPUSH 08/10/22 16:29 4 mg ONCE ONE Administration Oxycodone HCl 5 mg 08/10/22 16:29 08/10/22 16:38 Oxycodone Hcl Immed Release 5 Mg Tablet PO 08/10/22 16:30 5 mg ONCE ONE Administration Tetracaine HCl 1 drop 08/10/22 13:05 08/10/22 16:27 Tetracaine Hcl/Pf 0.5% Oph Marsha 4 Ml Drops EYE-RIGHT 08/10/22 13:06 1 drop ONCE ONE Administration <BRUNO Ledezma - Last Filed: 08/10/22 13:09> Medications Administered Discontinued Medications Generic Name Dose Route Start Last Admin Trade Name Freq PRN Reason Stop Dose Admin Bupivacaine HCl/Epinephrine Bitart 10 ml 08/10/22 15:24 08/10/22 16:29 Bupivacaine Mpf 0.5% W/Epi 1:200,000 10 Ml Vial INFILTRATI 08/10/22 15:25 Not Given ONCE ONE Diphtheria/Tetanus/Acell Pertussis 0.5 ml 08/10/22 17:34 08/10/22 17:56 Diphth,Pertus(Acell),Tet Adult 0.5 Ml Syringe IM 08/10/22 17:35 0.5 ml .ONCE ONE Administration Doxycycline Monohydrate 100 mg 08/10/22 15:24 08/10/22 16:27 Doxycycline Monohydrate 100 Mg Capsule PO 08/10/22 15:25 100 mg ONCE ONE Administration Erythromycin 1 cm 08/10/22 16:28 08/10/22 16:38 Erythromycin Base 0.5% Oph Oin 1 Gm Tube EYE-RIGHT 08/10/22 16:29 1 cm ONCE ONE Administration Fluorescein Sodium 1 strip 08/10/22 13:05 08/10/22 16:27 Fluorescein Sodium Strip EYE-RIGHT 08/10/22 13:06 1 strip ONCE ONE Administration Iohexol 100 ml 08/10/22 16:01 08/10/22 16:02 Iohexol 350 Mg/Ml 100 Ml Infus..Btl IV 08/10/22 16:02 85 ml ONCE ONE Administration Lidocaine HCl 5 ml 08/10/22 13:05 08/10/22 16:27 Lidocaine Hcl 1 % Mpf 5 Ml Vial INFILTRATI 08/10/22 13:06 5 ml ONCE ONE Administration Lidocaine HCl 5 ml 08/10/22 15:14 08/10/22 16:28 Lidocaine Hcl 2 % Mpf 5 Ml Vial INFILTRATI 08/10/22 15:15 Not Given ONCE ONE Morphine Sulfate 4 mg 08/10/22 16:28 08/10/22 16:37 Morphine Sulfate 4 Mg/Ml Cartridge IVPUSH 08/10/22 16:29 4 mg ONCE ONE Administration Protocol Ondansetron HCl 4 mg 08/10/22 16:28 08/10/22 16:37 Ondansetron Hcl 4 Mg/2 Ml Vial IVPUSH 08/10/22 16:29 4 mg ONCE ONE Administration Oxycodone HCl 5 mg 08/10/22 16:29 08/10/22 16:38 Oxycodone Hcl Immed Release 5 Mg Tablet PO 08/10/22 16:30 5 mg ONCE ONE Administration Tetracaine HCl 1 drop 08/10/22 13:05 08/10/22 16:27 Tetracaine Hcl/Pf 0.5% Oph Marsha 4 Ml Drops EYE-RIGHT 08/10/22 13:06 1 drop ONCE ONE Administration <Zuleima Romero NP - Last Filed: 08/10/22 23:24> Medical Decision Making Differential Diagnosis Differential Diagnoses: The differential diagnosis associated with the presentation includes <Zuleima Romero NP - Last Filed: 08/10/22 23:24> Conjunctivitis, corneal and conjunctival abrasion, hyphema, foreign body, abscess, hidradenitis suppurativa, cellulitis, kidney stone, acute abdomen, constipation, diverticulitis <Zuleima Romero NP - Last Filed: 08/10/22 23:24> Admission/Observation Consideration of admission/observation: Escalation of care including admission/observation considered <Zuleima Romero NP - Last Filed: 08/10/22 23:24> If patient has acute abdomen, will consider admission <Zuleima Romero NP - Last Filed: 08/10/22 23:24> Lab Data MDM Lab Attestation statement: I reviewed the patient's lab results. <Zuleima Romero NP - Last Filed: 08/10/22 23:24> Result Diagrams: 08/10/22 13:12 08/10/22 13:12 <BRUNO Ledezma - Last Filed: 08/10/22 13:09> Labs: Lab Results 08/10/22 08/10/22 Range/Units 13:12 13:12 WBC 12.1 H (4.8-10.8) X10*3/uL RBC 4.60 (4.20-5.50) X10*6/uL Hgb 13.5 (12.0-16.0) g/dl Hct 40.9 (37.0-47.0) % MCV 88.9 (80.0-98.0) fL MCH 29.3 (27.0-33.0) pg MCHC 33.0 (31.0-35.0) g/dl RDW 13.0 (11.0-16.0) % Plt Count 318 (160-400) X10*3/uL MPV 9.8 (9.4-12.3) fL Immature Gran % (Auto) 0.4 (0.0-0.4) % Neut % (Auto) 71.3 (45-73) % Lymph % (Auto) 20.7 (20-40) % [place] % (Auto) 6.4 (2-11) % Eos % (Auto) 0.9 (0-4) % Baso % (Auto) 0.3 (0-2) % Lymph # (Auto) 2.5 (1.2-4.9) X10*3/uL [place] # (Auto) 0.8 (0.1-1.2) X10*3/uL Eos # (Auto) 0.1 (0.0-0.4) X10*3/uL Baso # (Auto) 0.0 (0.0-0.2) X10*3/uL Abs Immat Gran (auto) 0.05 H (0.00-0.03) X10*3/uL Absolute Neuts (auto) 8.6 H (2.0-8.3) x10*3/uL Absolute Nucleated RBC 0.000 (0.0-0.012) X10*3/uL Nucleated RBC % (auto) 0.0 (0.0-0.2) /100WBC Sodium 138 (135-145) mmol/L Potassium 3.8 (3.3-5.1) mmol/L Chloride 102 (96-108) mmol/L Carbon Dioxide 24 (22-29) mmol/L Anion Gap 16 (12-20) BUN 16 (9-16) mg/dL Creatinine 1.00 (0.5-1.4) mg/dL Estim Creat Clear Calc 70.1 Estimated GFR 60 Random Glucose 372 H* (60-115) mg/dL Calcium 9.4 (8.4-10.2) mg/dL Magnesium 2.1 (1.6-2.6) mg/dL Total Bilirubin 0.2 (0.0-1.0) mg/dL Direct Bilirubin < 0.2 (0.0-0.5) mg/dL AST 18 (5-31) U/L ALT 42 H (0-31) U/L Alkaline Phosphatase 122 H (39-117) U/L Total Protein 7.4 (6.5-8.0) g/dL Albumin 4.1 (3.5-5.0) g/dL Lipase 51 (8-78) U/L <BRUNO Ledezma - Last Filed: 08/10/22 13:09> Lab Results 08/10/22 08/10/22 Range/Units 13:12 13:12 WBC 12.1 H (4.8-10.8) X10*3/uL RBC 4.60 (4.20-5.50) X10*6/uL Hgb 13.5 (12.0-16.0) g/dl Hct 40.9 (37.0-47.0) % MCV 88.9 (80.0-98.0) fL MCH 29.3 (27.0-33.0) pg MCHC 33.0 (31.0-35.0) g/dl RDW 13.0 (11.0-16.0) % Plt Count 318 (160-400) X10*3/uL MPV 9.8 (9.4-12.3) fL Immature Gran % (Auto) 0.4 (0.0-0.4) % Neut % (Auto) 71.3 (45-73) % Lymph % (Auto) 20.7 (20-40) % [place] % (Auto) 6.4 (2-11) % Eos % (Auto) 0.9 (0-4) % Baso % (Auto) 0.3 (0-2) % Lymph # (Auto) 2.5 (1.2-4.9) X10*3/uL [place] # (Auto) 0.8 (0.1-1.2) X10*3/uL Eos # (Auto) 0.1 (0.0-0.4) X10*3/uL Baso # (Auto) 0.0 (0.0-0.2) X10*3/uL Abs Immat Gran (auto) 0.05 H (0.00-0.03) X10*3/uL Absolute Neuts (auto) 8.6 H (2.0-8.3) x10*3/uL Absolute Nucleated RBC 0.000 (0.0-0.012) X10*3/uL Nucleated RBC % (auto) 0.0 (0.0-0.2) /100WBC Sodium 138 (135-145) mmol/L Potassium 3.8 (3.3-5.1) mmol/L Chloride 102 (96-108) mmol/L Carbon Dioxide 24 (22-29) mmol/L Anion Gap 16 (12-20) BUN 16 (9-16) mg/dL Creatinine 1.00 (0.5-1.4) mg/dL Estim Creat Clear Calc 70.1 Estimated GFR 60 Random Glucose 372 H* (60-115) mg/dL Calcium 9.4 (8.4-10.2) mg/dL Magnesium 2.1 (1.6-2.6) mg/dL Total Bilirubin 0.2 (0.0-1.0) mg/dL Direct Bilirubin < 0.2 (0.0-0.5) mg/dL AST 18 (5-31) U/L ALT 42 H (0-31) U/L Alkaline Phosphatase 122 H (39-117) U/L Total Protein 7.4 (6.5-8.0) g/dL Albumin 4.1 (3.5-5.0) g/dL Lipase 51 (8-78) U/L <Zuleima Romero NP - Last Filed: 08/10/22 23:24> Independent Interpretation I performed an independent interpretation of an: Plain X-Ray, Ultrasound and CT Scan <Zuleima Romero NP - Last Filed: 08/10/22 23:24> Radiology Impression Discussion of test interpretation with radiology: I have reviewed the radiologist's reading. <Zuleima Romero NP - Last Filed: 08/10/22 23:24> Radiologist Impression: FINDINGS: LUNG BASES: Minimal bibasilar atelectasis. LIVER, GALLBLADDER, AND BILIARY TREE: Mild hepatomegaly with liver measuring 18 cm in length. Normal hepatic attenuation. No liver lesion. No focal hepatic lesion or biliary ductal dilatation is present. The gallbladder is unremarkable with no evidence of radiopaque gallstones, gallbladder wall thickening, or obvious pericholecystic inflammatory changes.? PANCREAS: Unremarkable.? SPLEEN: Unremarkable.? ADRENAL GLANDS: Unchanged 1.9 cm left adrenal nodule and 2 small left adrenal nodules, largest 1 cm in size, indeterminate on this study, but unchanged since 2017.? KIDNEYS AND URETERS: The kidneys are normal in size, shape, and attenuation. No hydronephrosis, hydroureter, or calculi seen. No perinephric stranding. ? BLADDER: Prominently distended. No bladder wall thickening.? GASTROINTESTINAL TRACT: Moderate amount of formed stool throughout the nondilated colon most prominently in the right and transverse colon. No dilated bowel loops. No bowel wall thickening. Normal appendix. No free air or ascites.? ABDOMINAL WALL: No significant hernia is appreciated.? LYMPH NODES: No lymphadenopathy. VASCULAR: Normal caliber abdominal aorta. Mild ex calcified noncalcified atherosclerotic plaque. PELVIC VISCERA: Status post hysterectomy.? OSSEOUS STRUCTURES: No acute fracture or suspicious osseous lesion.? CT/CT abdomen pelvis w IV con IMPRESSION: 1.? No evidence of acute appendicitis or other acute intra-abdominal process. 2.? Moderate amount of formed stool within the colon most prominently in the right and transverse colon. Correlate clinically with signs or symptoms of constipation. 3.? Mild hepatomegaly. 4.? Unchanged indeterminate left adrenal nodules, stability since 2017 consistent with benign etiology such as adenomas. FINDINGS: PANCREAS: Normal. LIVER: Liver has normal size and contour. The parenchyma is diffusely hyperechoic. No focal lesion or intrahepatic bile duct dilatation. GALLBLADDER: Normal. The gallbladder is underdistended and without evidence of stones, sludge, polyps, wall thickening or pericholecystic fluid. COMMON BILE DUCT: Normal in caliber measuring 0.3 cm in diameter. RIGHT KIDNEY: Normal. No hydronephrosis. No renal calculi or focal parenchymal lesions. The kidney measures 10.9 cm in maximum dimension. FREE FLUID: None. US/US abdomen limited IMPRESSION: *? No evidence of cholelithiasis, cholecystitis or biliary tract obstruction. *? Liver is diffusely hyperechoic which suggests presence of steatosis. *? Otherwise, unremarkable right upper quadrant ultrasound examination. EXAMINATION: XR RIBS, RIGHT CLINICAL INFORMATION: Right-sided rib pain COMPARISON: Chest x-ray 07/05/2022. CT of chest 07/06/2022 TECHNIQUE: Single view of chest 3 views of the right ribs were obtained. The marker placed at the lower right ribs. FINDINGS: Rounded 1.5 cm nodule consistent with nipple shadows both lung bases. (No lung mass seen on CT chest 07/06/2022.) No acute abnormality of the chest. Lungs are clear. No consolidation, pneumothorax, or pleural effusion. The cardiomediastinal silhouette and pulmonary vasculature are normal. Osseous structures are unremarkable. Ribs are intact. No fractures are identified. XR/XR ribs RT min 3V w [id number] IMPRESSION: Unremarkable examination. ?? <Zuleima Romero NP - Last Filed: 08/10/22 23:24> External Record Review External record reviewed: Outpatient record and Prior outpatient labs <Zuleima Romero NP - Last Filed: 08/10/22 23:24> Prescription Management I considered prescription management with: Antibiotic <Zuleima Romero NP - Last Filed: 08/10/22 23:24> Chronic Conditions Patient?s care impacted by: Diabetes <Zuleima Romero NP - Last Filed: 08/10/22 23:24> Discharge Plan Discharge Clinical Impression: Conjunctival abrasion, Abdominal pain, Constipation, Abscess, Hidradenitis suppurativa <BRUNO Ledezma - Last Filed: 08/10/22 13:09> Patient Disposition: Home, Self-Care <BRUNO Ledezma - Last Filed: 08/10/22 13:09> Instructions: Constipation (ED), Corneal Abrasion (ED), Abscess (ED), Abdominal Pain (ED), Abscess Incision and Drainage (DC), Hidradenitis Suppurativa (ED) <BRUNO Ledezma - Last Filed: 08/10/22 13:09> Additional Instructions: Fuiste evaluado por m?ltiples inquietudes. Actualizamos merlos vacuna Tdap hoy. Para el dolor abdominal, merlos tomograf?a computarizada abdominal y ultrasonidos son negativos para hallazgos agudos que requieren kelsea intervenci?n de emergencia. Las im?genes indican estre?imiento. [place] MiraLax diariamente seg?n las indicaciones. beber mucho l?quido. Para merlos luca derecho, tiene kelsea abrasi?n conjuntival. Le dimos instrucciones para la abrasi?n de la c?rnea, siga estas instrucciones. Aplique la pomada oft?lmica de eritromicina cada 4 horas mientras est? despierto ifeoma los pr?ximos 5 d?as. Considere seguimiento con Oftalmolog?a para evaluaci?n. Puede hacer un seguimiento con merlos propio oftalm?logo o llamar al Dr. Hickman para programar kelsea flora. Para el absceso de la axila derecha, drenamos mikaela absceso y colocamos taponamiento. Vuelva en 3 d?as para que le quiten el embalaje. [place] doxiciclina 100 mg dos veces al d?a ifeoma los pr?ximos 10 d?as. Liane un seguimiento con el Dr. Magallanes?christine, cirujano general, para kelsea evaluaci?n de hidradenitis supurativa. Puede beneficiarse de kelsea consulta quir?rgica para esta condici?n. Le recet? oxicodona. Mikaela medicamento es un narc?marcel y tiene un alto riesgo de adicci?n y abuso. No conduzca ni maneje maquinaria mientras tavia mikaela medicamento. Mikaela medicamento provoca estre?imiento, puede retrasar el tiempo de reacci?n, aumentar el riesgo de ca?morgan, causar somnolencia y es altamente adictivo. [place] Tylenol 650 mg cada 6 horas y Motrin 600 mg cada 6 horas seg?n sea necesario para controlar el dolor y la fiebre. Considere gerald estos medicamentos con 3 horas de diferencia para controlar el dolor y la fiebre cada 3 horas. Anote a qu? hora tavia estos medicamentos para evitar kelsea sobredosis accidental. David por elegir mikaela departamento de emergencias para merlos evaluaci?n. Por favor, liane un seguimiento con el m?dico de atenci?n primaria seg?n sea necesario. Regrese al departamento de emergencias por cualquier s?ntoma nuevo, preocupante o que empeore. You were evaluated for multiple concerns. We updated her Tdap vaccine today. For abdominal pain, your abdominal CT and ultrasounds are negative for acute findings requiring emergent intervention. Imaging indicates constipation. Please take MiraLax daily as directed. drink plenty of fluids. For your right eye, you have a conjunctival abrasion. We gave you instructions for corneal abrasion, please follow these directions. Apply erythromycin eye ointment every 4 hours while awake for the next 5 days. Consider following up with Ophthalmology for evaluation. You may follow-up with your own rehabilitation services manager, or call Dr. Hickman for an appointment. For the right axilla abscess, we drained this abscess and placed packing. Please return in 3 days to have packing removed. Take doxycycline 100 mg twice a day for the next 10 days. Please follow-up with Dr. Vásquez, general surgeon, for evaluation for hidradenitis suppurativa. You may benefit from a surgical consult for this condition. I prescribed oxycodone. This medication is a narcotic and has high risk for addiction and abuse. Do not drive or operate machinery while taking this medication. This medication is constipating, can delayed reaction time, increased risk for falls, cause drowsiness, and is highly addictive. Alternate Tylenol 650 mg every 6 hours and Motrin 600 mg every 6 hours as needed for pain and fever management. Consider taking these medications 3 hours apart so you have pain and fever management every 3 hours. Write down what time you take these medications to prevent accidental overdose. Thank you for choosing this emergency department for evaluation. Please follow- up with primary care physician as needed. Return to the emergency department for any new, concerning, or worsening symptoms. <BRUNO Ledezma - Last Filed: 08/10/22 13:09> Prescriptions: New doxycycline monohydrate 100 mg capsule 100 mg PO BID 10 Days Qty: 20 0RF erythromycin 5 mg/gram (0.5 %) ointment 0.5 inch ophthalmic (eye) Q4H 5 Days Qty: 3.5 0RF Rx Instructions: Apply every 4 hours while awake to the right eye oxycodone 5 mg tablet 5 mg PO Q8H PRN (Reason: pain) Qty: 7 0RF Rx Instructions: Partial Fill upon patient request. ibuprofen 600 mg tablet 600 mg PO Q6H PRN (Reason: pain) Qty: 60 0RF No Action amoxicillin-pot clavulanate [Augmentin] 875-125 mg tablet 1 tab PO BID Qty: 20 0RF metronidazole [Flagyl] 500 mg tablet 500 mg PO TID Qty: 30 0RF dicyclomine 10 mg capsule 10 mg PO BID Qty: 20 0RF prednisone 20 mg tablet 40 mg PO DAILY Qty: 10 0RF codeine-guaifenesin 10-100 mg/5 mL liquid 10 ml PO Q4-6H PRN (Reason: cough) Qty: 237 0RF omeprazole 10 mg capsule,delayed release(DR/EC) 10 mg PO DAILY Qty: 20 0RF ondansetron 4 mg tablet,disintegrating 4 mg PO Q6H PRN (Reason: nausea and vomiting) Qty: 14 0RF albuterol sulfate 90 mcg/actuation aerosol powdr breath activated 2 inh inhalation Q4-6H PRN (Reason: shortness of breath) Qty: 1 0RF prednisone 20 mg tablet 40 mg PO DAILY 5 Days Qty: 10 0RF albuterol sulfate 0.63 mg/3 mL solution for nebulization 0.63 mg inhalation QID PRN (Reason: shortness of breath or wheezing) Qty: 75 0RF albuterol sulfate 90 mcg/actuation HFA aerosol inhaler 1 inh inhalation QID PRN (Reason: shortness of breath or wheezing) Qty: 8.5 0RF prednisone 20 mg tablet 20 mg PO DAILY 5 Days Qty: 5 0RF amoxicillin-pot clavulanate 875-125 mg tablet 1 tab PO Q12H 7 Days Qty: 14 0RF metronidazole 500 mg tablet 500 mg PO Q8H 7 Days Qty: 21 0RF oxycodone 5 mg tablet 5 mg PO Q8H PRN (Reason: pain) Qty: 7 0RF Rx Instructions: Partial Fill upon patient request. ondansetron 4 mg tablet,disintegrating 4 mg PO Q8H PRN (Reason: nausea and vomiting) Qty: 14 0RF <BRUNO Ledezma - Last Filed: 08/10/22 13:09> Referrals: Ryne Hickman [Physician] - 1 week (Ophthalmology) Damon Vásquez MD [Physician] - 1 week (Hidradenitis suppurativa) <BRUNO Ledezma - Last Filed: 08/10/22 13:09> Interventions: ED Discharge Assessment Last Done: 08/10/22 18:02 <BRUNO Ledezma - Last Filed: 08/10/22 13:09> Discharge Date/Time: 08/10/22 18:05 <BRUNO Ledezma - Last Filed: 08/10/22 13:09>
[2022-08-10 13:18] LABS: MANUAL DIFF FLAG NO
[2022-08-10 13:23] LABS: Basophils Percent Auto 0.3 % (0-2); Eosinophils Absolute Auto 0.1 X10*3/uL (0.0-0.4); Eosinophils Percent Auto 0.9 % (0-4); Hematocrit 40.9 % (37.0-47.0); Hemoglobin 13.5 g/dl (12.0-16.0); Imm Gran Abs Auto 0.05 X10*3/uL (0.00-0.03); Imm Gran Pct Auto 0.4 % (0.0-0.4); Lymphocytes Absolute Auto 2.5 X10*3/uL (1.2-4.9); Lymphocytes Percent Auto 20.7 % (20-40); Mean Corpuscular Hemoglobin 29.3 pg (27.0-33.0); Mean Corpuscular Volume 88.9 fL (80.0-98.0); Mean Platelet Volume 9.8 fL (9.4-12.3); Monocytes Absolute Auto 0.8 X10*3/uL (0.1-1.2); Monocytes Percent Auto 6.4 % (2-11); Neutrophils Absolute Auto 8.6 x10*3/uL (2.0-8.3); Neutrophils Percent Auto 71.3 % (45-73); Platelet Count 318 X10*3/uL (160-400); White Blood Count 12.1 X10*3/uL (4.8-10.8)
[2022-08-10 13:43] LABS: Alanine Aminotransferase 42 U/L (0-31); Albumin Level 4.1 g/dL (3.5-5.0); Alkaline Phosphatase 122 U/L (39-117); Anion Gap 16 (12-20); Aspartate Amino Transferase 18 U/L (5-31); Bilirubin Direct < 0.2 mg/dL (0.0-0.5); Bilirubin Total 0.2 mg/dL (0.0-1.0); Blood Urea Nitrogen 16 mg/dL (9-16); Calcium 9.4 mg/dL (8.4-10.2); Carbon Dioxide 24 mmol/L (22-29); Chloride 102 mmol/L (96-108); Creatinine Clr Calc Pharmacy 70.1; Estimated Glomerular Filt Rate 60; Glucose Random 372 mg/dL (60-115); Lipase 51 U/L (8-78); Magnesium 2.1 mg/dL (1.6-2.6); Potassium 3.8 mmol/L (3.3-5.1); Sodium 138 mmol/L (135-145); Total Protein 7.4 g/dL (6.5-8.0)
--- NOTE | 2022-08-10 15:26 | PC.NURSE ---
pharmacy to send lidocaine down to ED
[2022-08-10 15:37] VITALS: BP 122/77; PULSE 86; RESP 15; TEMP 37.1; O2SAT 99
--- NOTE | 2022-08-10 15:39 | PC.NURSE ---
patient primary language is Tajik, she is aware of vascular manager service.
[2022-08-10] MEDS: iohexoL 350 MG/ML 100 ML INFUS..BTL IV (16:02)
[2022-08-10] MEDS: Lidocaine HCl 1 % MPF 5 ML VIAL INFILTRATI (16:27)
[2022-08-10] MEDS: Doxycycline Monohydrate 100 MG CAPSULE PO (16:27)
[2022-08-10] MEDS: Tetracaine HCl/PF 0.5% Oph Sol 4 ML DROPS 1 DROP EYE-RIGHT (16:27)
[2022-08-10] MEDS: Fluorescein Sodium STRIP 1 STRIP EYE-RIGHT (16:27)
[2022-08-10] MEDS: Morphine Sulfate 4 MG/ML CARTRIDGE IVPUSH (16:37)
[2022-08-10] MEDS: ondansetron HCL 4 MG/2 ML VIAL IVPUSH (16:37)
[2022-08-10] MEDS: oxyCODONE HCl Immed Release 5 MG TABLET PO (16:38)
[2022-08-10] MEDS: Erythromycin Base 0.5% Oph Oin 1 GM TUBE 1 CM EYE-RIGHT (16:38)
[2022-08-10] MEDS: Diphth,Pertus(ACell),Tet Adult 0.5 ML SYRINGE IM (17:56)
== END 2022-08-10 18:05 | disposition home or self-care (01) ==
PROVIDERS: Physician Assistant; Emergency Provider Emergency Medicine; PCP Internal Medicine
DX: S05.01XA Injury of conjunctiva and corneal abrasion without foreign body, right eye, initial encounter (principal); X58.XXXA Exposure to other specified factors, initial encounter; L02.411 Cutaneous abscess of right axilla; R10.11 Right upper quadrant pain; L73.2 Hidradenitis suppurativa; K59.00 Constipation, unspecified; E11.9 Type 2 diabetes mellitus without complications; Y93.9 Activity, unspecified; Y92.9 Unspecified place or not applicable; Y99.9 Unspecified external cause status
CPT/HCPCS: 10060; 36415; 71101; 74177; 76705; 80048; 80076; 83690; 83735; 85025; 87070; 87077; 87186; 87205; 90471; 90715; 96374; 96375; 99283; 99284; J2270; J2405; Q9967

== ENCOUNTER 2022-12-06 17:03 | Emergency (ER) | payer OTHER, SELFPAY ==
[2022-12-06 17:05] VITALS: BP 132/84; PULSE 88; RESP 18; TEMP 36.3; O2SAT 100; BMI 26.5
--- NOTE | 2022-12-06 17:35 | ED_ITS ---
HPI - Skin/Abscess/Foreign Bdy General Chief complaint: Skin/Abscess/Foreign Body Stated complaint: dizziness/bump on head Time Seen by Provider: 12/06/22 17:35 Source: patient Mode of arrival: ambulatory Limitations: no limitations History of Present Illness HPI narrative: 47 year old female presents with a lump on her head that has been there for the past 1.5 weeks which is now draining. States this may have started after box dying her hair. States pain is severe, sharp and now it radiates twoards her ear and is causing her entire head to hurt. She also wants us to help her figure out how she can get lyrica covered by her insurance company. Denies trauma, visionchages, dizziness, cp, sob, n/v/d, abd pain, fevers, chills. Related Data Previous Rx's Medication Instructions Recorded amoxicillin 875 mg-potassium 1 tab PO BID #20 tabs 01/22/21 clavulanate 125 mg tablet (Augmentin) dicyclomine 10 mg capsule 10 mg PO BID #20 caps 01/22/21 metronidazole 500 mg tablet 500 mg PO TID #30 tabs 01/22/21 (Flagyl) codeine 10 mg-guaifenesin 100 mg/5 10 ml PO Q4-6H PRN cough #237 mL 04/01/21 mL oral liquid prednisone 20 mg tablet 40 mg PO DAILY #10 tabs 04/01/21 omeprazole 10 mg capsule,delayed 10 mg PO DAILY #20 caps 12/03/21 release albuterol sulfate 0.63 mg/3 mL 0.63 mg (3 mL) inhalation QID PRN 03/05/22 solution for nebulization shortness of breath or wheezing #75 mL albuterol sulfate 90 mcg/actuation 1 inh inhalation QID PRN shortness 03/05/22 aerosol inhaler of breath or wheezing #8.5 grams prednisone 20 mg tablet 20 mg PO DAILY 5 days #5 tabs 03/05/22 amoxicillin 875 mg-potassium 1 tab PO Q12H 7 days #14 tabs 05/29/22 clavulanate 125 mg tablet metronidazole 500 mg tablet 500 mg PO Q8H 7 days #21 tabs 05/29/22 ondansetron 4 mg disintegrating 4 mg PO Q8H PRN nausea and 05/29/22 tablet vomiting #14 tabs oxycodone 5 mg tablet 5 mg PO Q8H PRN pain #7 tabs 05/29/22 albuterol sulfate 90 mcg/actuation 2 inh inhalation Q4-6H PRN 06/11/22 breath activated powder inhaler shortness of breath #1 ea ondansetron 4 mg disintegrating 4 mg PO Q6H PRN nausea and 06/11/22 tablet vomiting #14 tabs prednisone 20 mg tablet 40 mg PO DAILY 5 days #10 tabs 06/11/22 doxycycline monohydrate 100 mg 100 mg PO BID 10 days #20 caps 08/10/22 capsule erythromycin 5 mg/gram (0.5 %) eye 0.5 inch ophthalmic (eye) Q4H 5 08/10/22 ointment days #3.5 grams ibuprofen 600 mg tablet 600 mg PO Q6H PRN pain #60 tabs 08/10/22 oxycodone 5 mg tablet 5 mg PO Q8H PRN pain #7 tabs 08/10/22 cephalexin 500 mg tablet 500 mg PO Q6H 10 days #40 tabs 12/06/22 doxycycline hyclate 100 mg capsule 100 mg PO BID 10 days #20 caps 12/06/22 ketorolac 10 mg tablet 10 mg PO TID PRN pain 5 days #15 12/06/22 tabs Allergies Allergy/AdvReac Type Severity Reaction Status Date / Time ciprofloxacin [From CIPRO] Allergy Intermediate RASH Verified 12/06/22 17:05 Sulfa (Sulfonamide Allergy Intermediate RASH Verified 12/06/22 17:05 Antibiotics) [SULFA (SULFONAMIDE ANTIBIOTICS)] sulfamethoxazole Allergy Unknown SWELLING Verified 12/06/22 17:05 [From ] trimethoprim [From ] Allergy Unknown SWELLING Verified 12/06/22 17:05 SEAFOOD Allergy Severe ANAPHYLAXIS Uncoded 07/05/22 22:45 Review of Systems Review of Systems: Constitutional : No Weight loss, No Fever, No Chills, No Fatigue, No Malaise ENT/Mouth : No sore throat, No Rhinorrhea Eyes: No Eye Pain, No Swelling, No Redness Cardiovascular : No Chest Pain, No SOB, No Dyspnea on Exertion, No Orthopnea, No Edema, No Palpitations Respiratory : No Cough, No Sputum, No Wheezing Gastrointestinal : No Nausea, No Vomiting, No Diarrhea, No Constipation, No abdominal Pain, No Hematochezia, No Melena Genitourinary : No Dysuria, No Urinary Frequency, No Hematuria, Musculoskeletal : No joint pain, No Myalgias, No Joint Swelling Skin : No Skin Lesions, No rash, + abscess Neuro : No Weakness, No Numbness, No Dizziness, No Headache Psych : No Anxiety/Panic, No Depression All other systems reviewed and are negative Yes all other systems are reviewed and are negative [facility] Past Medical History Attestation statement: The following information was validated with the patient. Source: old records reviewed and nursing notes reviewed Medical History Asthma Diabetes Hepatitis A Social History Social History Alcohol intake: never Physical Exam Vital Signs: Vital Signs: Last Vital Signs Temp 97.4 F 12/06/22 17:05 Pulse 88 12/06/22 17:05 Resp 18 12/06/22 17:05 BP 132/84 12/06/22 17:05 Pulse Ox 100 12/06/22 17:05 O2 Del Method Room Air 12/06/22 17:05 BMI result Body Mass Index 26.5 vss Appearance: Alert.? Oriented X3.? No acute distress.? Head: Normocephalic, atraumatic, no step-offs or deformities + 2 cm X 2 cm self draining abscess on top of scalp w/ overlying errythema and warmth. Eyes: Pupils equal, round and reactive to light.? ENT: Pharynx normal.??External ears normal, No pain with manipulation of external ears bilaterally. No mastoid tenderness. Neck: Normal inspection.? Neck supple.? CVS: Normal heart rate and rhythm.? Pulses normal.? Respiratory: No respiratory distress.? Breath sounds normal.? Abdomen: Soft and nontender.? Skin: Skin warm and dry.? Normal skin color.? Normal skin turgor.? Extremities: No lower extremity edema.? No calf ttp. 5/5 strength to bilateral upper and lower extremities Back: No midline tenderness, no C-spine tenderness, full range of motion, no CVA tenderness bilaterally Neuro: Oriented X 3.? No motor deficit.? No sensory deficit. CN 2-12 intact. Normal finger to nose, heel to ingram and steady tandem gait. Course Reevaluation(s) Reevaluation #1: Patinet to be dc w/ tordol and atbx. Advised to return w/ new or worsening sx. Comfortable w/ dc home. Time: 17:47 Medical Decision Making Medical Decision Making [facility] Narrative: 1739 47 year old female presents w/ abscess on head sp box dying her hair causing severe pain radiating throughout head and to R. ear. PE + 2 cm X 2 cm self draining abscess on top of scalp w/ overlying errythema and warmth. Neuro intact. Cerebellar intact. NIHSS 0. Ears wnl. Likely abscess w/ cellulitis unlikely sepsis, ICH, stroke, posterior stroke. No signs of necrotizing infection, meningitis Applied pressure on abscess to drain w/ sucesses. Patient tollerated well. requesitng pain meds- tordol ordered. Differential Diagnosis Differential Diagnoses: The differential diagnosis associated with the presentation includes Likely abscess w/ cellulitis unlikely sepsis, ICH, stroke, posterior stroke. No signs of necrotizing infection, meningitis Admission/Observation Consideration of admission/observation: Escalation of care including admission/observation considered Prescription Management I considered prescription management with: Pain Medication and Antibiotic Core Measures AMI core measures followed: Yes Measure exclusions: not indicated Critical Care Time Critical Care Time Critical Care Time: No Discharge Plan Discharge Clinical Impression: Abscess of head Patient Disposition: Home, Self-Care Instructions: Abscess (ED) Additional Instructions: Take your medications as prescribed. If you were prescribed antibiotics today, it is important that you take your medication to their entirety, do not skip any doses, do not finish them early. Follow-up with your primary care provider this week. Return to the emergency department with new or worsening symptoms. In case of emergency call 911 Elli has been sent to the pharmcy do not take ibuprofen or other NSAIDS with this drug. Do not drink while taking this. Can cause kidney injury Prescriptions: New ketorolac 10 mg tablet 10 mg PO TID PRN (Reason: pain) 5 Days Qty: 15 0RF doxycycline hyclate 100 mg capsule 100 mg PO BID 10 Days Qty: 20 0RF cephalexin 500 mg tablet 500 mg PO Q6H 10 Days Qty: 40 0RF No Action amoxicillin-pot clavulanate [Augmentin] 875-125 mg tablet 1 tab PO BID Qty: 20 0RF metronidazole [Flagyl] 500 mg tablet 500 mg PO TID Qty: 30 0RF dicyclomine 10 mg capsule 10 mg PO BID Qty: 20 0RF prednisone 20 mg tablet 40 mg PO DAILY Qty: 10 0RF codeine-guaifenesin 10-100 mg/5 mL liquid 10 ml PO Q4-6H PRN (Reason: cough) Qty: 237 0RF omeprazole 10 mg capsule,delayed release(DR/EC) 10 mg PO DAILY Qty: 20 0RF ondansetron 4 mg tablet,disintegrating 4 mg PO Q6H PRN (Reason: nausea and vomiting) Qty: 14 0RF albuterol sulfate 90 mcg/actuation aerosol powdr breath activated 2 inh inhalation Q4-6H PRN (Reason: shortness of breath) Qty: 1 0RF prednisone 20 mg tablet 40 mg PO DAILY 5 Days Qty: 10 0RF doxycycline monohydrate 100 mg capsule 100 mg PO BID 10 Days Qty: 20 0RF erythromycin 5 mg/gram (0.5 %) ointment 0.5 inch ophthalmic (eye) Q4H 5 Days Qty: 3.5 0RF Rx Instructions: Apply every 4 hours while awake to the right eye oxycodone 5 mg tablet 5 mg PO Q8H PRN (Reason: pain) Qty: 7 0RF Rx Instructions: Partial Fill upon patient request. ibuprofen 600 mg tablet 600 mg PO Q6H PRN (Reason: pain) Qty: 60 0RF albuterol sulfate 0.63 mg/3 mL solution for nebulization 0.63 mg inhalation QID PRN (Reason: shortness of breath or wheezing) Qty: 75 0RF albuterol sulfate 90 mcg/actuation HFA aerosol inhaler 1 inh inhalation QID PRN (Reason: shortness of breath or wheezing) Qty: 8.5 0RF prednisone 20 mg tablet 20 mg PO DAILY 5 Days Qty: 5 0RF amoxicillin-pot clavulanate 875-125 mg tablet 1 tab PO Q12H 7 Days Qty: 14 0RF metronidazole 500 mg tablet 500 mg PO Q8H 7 Days Qty: 21 0RF oxycodone 5 mg tablet 5 mg PO Q8H PRN (Reason: pain) Qty: 7 0RF Rx Instructions: Partial Fill upon patient request. ondansetron 4 mg tablet,disintegrating 4 mg PO Q8H PRN (Reason: nausea and vomiting) Qty: 14 0RF Referrals: Jose Doshi MD [Primary Care Provider] - 2 days
[2022-12-06] MEDS: Ketorolac Tromethamine 15 MG/ML VIAL 30 MG IM (17:45)
== END 2022-12-06 17:48 | disposition home or self-care (01) ==
PROVIDERS: Emergency Provider Student in an Organized Health Care Education/Training Program; PCP Internal Medicine
DX: L02.811 Cutaneous abscess of head [any part, except face] (principal); R51.9 Headache, unspecified; Z79.899 Other long term (current) drug therapy
CPT/HCPCS: 96372; 99283; 99284; J1885

== ENCOUNTER 2023-01-21 15:45 | Emergency (ER) | payer OTHER, SELFPAY | END 2023-01-21 19:03 | disposition left against medical advice (07) | PROVIDERS: Emergency Provider Emergency Medicine | DX: S20.211A Contusion of right front wall of thorax, initial encounter (principal); W19.XXXA Unspecified fall, initial encounter; Y93.9 Activity, unspecified; Y92.9 Unspecified place or not applicable; Y99.9 Unspecified external cause status ==

== ENCOUNTER 2024-01-19 09:54 | Emergency (ER) | payer OTHER, SELFPAY ==
[2024-01-19] VITALS (8 sets, daily range): BP systolic 100–188; BP diastolic 63–107; PULSE 77–142; RESP 12–24; TEMP 37.3–37.7; O2SAT 96–100; BMI 26.5
--- NOTE | ~2024-01-19 | CT_ITS ---
EXAMINATION: CT angio head neck CLINICAL INFORMATION: Right-sided numbness. Difficulty swallowing. COMPARISON: No relevant prior imaging. TECHNIQUE: Package Worker images were obtained. A CT angiogram of the head and neck was performed in the arterial phase after the intravenous administration of 70 mL Omnipaque 350. Pre and delayed postcontrast images of the head were also obtained. 3D images were processed on an independent workstation under concurrent supervision. Arterial stenoses are measured in accordance with NASCET criteria or similar method if applicable. This CT examination was performed using dose optimization techniques as appropriate, including one or more of the following: Automated exposure control, iterative reconstruction, and adjustment of technique factors (mA and/or kVp) according to patient size (this includes techniques or standardized protocols for targeted exams where dose is matched to indication/reason for exam). Fleischner Society criteria for the followup of incidental pulmonary nodules was implemented if appropriate. Total exam dose-length product 2284 mGy-cm FINDINGS: Head: There is no acute intracranial hemorrhage. Postcontrast images reveal no abnormal intracranial mass or enhancement. No intracranial mass effect or midline shift. Lateral and third ventricles are normal. No hydrocephalus. Mccallum-white matter differentiation is preserved and there is no evidence of acute territorial infarct. The calvarium and skull base are intact. No mastoid middle ear effusion. Mild paranasal sinus disease primarily affecting the ethmoid air cells and the alveolar recess of the right maxillary sinus. Globes and orbits are grossly symmetric. CT angiogram neck: The aortic arch apex is normal. Origins of the major aortic branches are widely patent. Common carotid arteries are normal. Partially calcified atheromatous plaque involves both carotid bifurcations. No stenosis of the extracranial internal carotid arteries. The right cervical vertebral artery is hypoplastic. The dominant left vertebral artery is widely patent. CT angiogram head: There is atheromatous calcification involving the cavernous segments of both internal carotid arteries. Intracranial internal carotid arteries are otherwise patent. There is high-grade stenosis or occlusion of the right intradural vertebral artery at its dural insertion. The dominant left vertebral artery is widely patent and continues as the basilar. Anterior, middle, and posterior cerebral artery complexes are normal. No intracranial large vessel occlusion. No identifiable aneurysm or high flow vascular lesion. Other: Soft tissues of the neck including the thyroid gland are normal. No pathologically enlarged cervical lymph nodes. Lung apices are clear. No acute osseous finding. CT/CT angio head neck IMPRESSION: The right vertebral artery which is asymmetrically hypoplastic appears stenotic or occluded at its dural insertion. The dominant left vertebral artery is widely patent. There is a small amount of atheromatous calcification of both carotid bifurcations. No stenosis of the cervical carotid arteries. No intracranial large vessel occlusion. No evidence of acute territorial infarct or hemorrhage. No abnormal intracranial mass or enhancement.
--- NOTE | 2024-01-19 10:13 | ED_ITS ---
HPI - General Adult General Chief complaint: Neuro Symptoms/Deficit Stated complaint: FB in throat Time Seen by Provider: 01/19/24 10:02 Source: patient, family and old records reviewed Mode of arrival: ambulatory Limitations: other (very poor historian ) History of Present Illness ED Provider: FAVIOLA BARCENAS narrative: 48 yo female with PMH of asthma, diabetes, anxiety who presents from triage yelling and crying out with dry cough stating she ate at 7am and now states her throat is sticky. She ate at home had no allergen exposures. She is agitated and crying hard to get history. The son brought her in and states he called him home from work. She states her throat is sticky and she cannot swallow but has not had allergy exposure. She can swallow saliva, talk normal, can drink water. She is crying and anxious on exam. Son notes she is under stress and has c/o headache and R sided body numbness for 2 days. She has intermittent grunting cough MD complaint: FB sensation in throat Onset (ago): minute(s) (40) Location: mouth Radiation: non-radiation Severity: moderate Quality: other ( stuck ) Pain Consistency: intermittent Relieving factors: none Exacerbating factors: other (swallowing) Associated symptoms: other (2 days headache R sided numbness) Treatments prior to arrival: none Related Data Previous Rx's ?Medication ?Instructions ?Recorded amoxicillin 875 mg-potassium 1 tab PO BID #20 tabs 01/22/21 clavulanate 125 mg tablet (Augmentin) dicyclomine 10 mg capsule 10 mg PO BID #20 caps 01/22/21 metronidazole 500 mg tablet 500 mg PO TID #30 tabs 01/22/21 (Flagyl) codeine 10 mg-guaifenesin 100 mg/5 10 ml PO Q4-6H PRN cough #237 mL 04/01/21 mL oral liquid prednisone 20 mg tablet 40 mg (2 x 20 mg) PO DAILY #10 tabs 04/01/21 omeprazole 10 mg capsule,delayed 10 mg PO DAILY #20 caps 12/03/21 release albuterol sulfate 0.63 mg/3 mL 0.63 mg (3 mL) inhalation QID PRN 03/05/22 solution for nebulization shortness of breath or wheezing #75 mL albuterol sulfate 90 mcg/actuation 1 inh inhalation QID PRN shortness 03/05/22 aerosol inhaler of breath or wheezing #8.5 grams prednisone 20 mg tablet 20 mg PO DAILY 5 days #5 tabs 03/05/22 amoxicillin 875 mg-potassium 1 tab PO Q12H 7 days #14 tabs 05/29/22 clavulanate 125 mg tablet metronidazole 500 mg tablet 500 mg PO Q8H 7 days #21 tabs 05/29/22 ondansetron 4 mg disintegrating 4 mg PO Q8H PRN nausea and 05/29/22 tablet vomiting #14 tabs oxycodone 5 mg tablet 5 mg PO Q8H PRN pain #7 tabs 05/29/22 albuterol sulfate 90 mcg/actuation 2 inh inhalation Q4-6H PRN 06/11/22 breath activated powder inhaler shortness of breath #1 ea ondansetron 4 mg disintegrating 4 mg PO Q6H PRN nausea and 06/11/22 tablet vomiting #14 tabs prednisone 20 mg tablet 40 mg (2 x 20 mg) PO DAILY 5 days 06/11/22 #10 tabs doxycycline monohydrate 100 mg 100 mg PO BID 10 days #20 caps 08/10/22 capsule erythromycin 5 mg/gram (0.5 %) eye 0.5 inch ophthalmic (eye) Q4H 5 08/10/22 ointment days #3.5 grams ibuprofen 600 mg tablet 600 mg PO Q6H PRN pain #60 tabs 08/10/22 oxycodone 5 mg tablet 5 mg PO Q8H PRN pain #7 tabs 08/10/22 cephalexin 500 mg tablet 500 mg PO Q6H 10 days #40 tabs 12/06/22 doxycycline hyclate 100 mg capsule 100 mg PO BID 10 days #20 caps 12/06/22 ketorolac 10 mg tablet 10 mg PO TID PRN pain 5 days #15 12/06/22 tabs Allergies Allergy/AdvReac Type Severity Reaction Status Date / Time ciprofloxacin [From CIPRO] Allergy Intermediate RASH Verified 01/19/24 10:05 Sulfa (Sulfonamide Allergy Intermediate RASH Verified 01/19/24 10:05 Antibiotics) [SULFA (SULFONAMIDE ANTIBIOTICS)] sulfamethoxazole Allergy Unknown SWELLING Verified 01/19/24 10:05 [From ] trimethoprim [From ] Allergy Unknown SWELLING Verified 01/19/24 10:05 SEAFOOD Allergy Severe ANAPHYLAXIS Uncoded 07/05/22 22:45 Review of Systems 2 Review of Systems: Constitutional : No Fever, No Chills, No Fatigue ENT/Mouth : No sore throat, No Rhinorrhea, pos diff swallowing Eyes: No Eye Pain, No Swelling, No Redness Cardiovascular : No Chest Pain, No SOB, No Dyspnea on Exertion Respiratory : No Cough, No Sputum Gastrointestinal : No Nausea, No Vomiting, No Diarrhea, No abdominal Pain Genitourinary : No Dysuria, No Urinary Frequency, No Hematuria, Musculoskeletal : No joint pain, No Myalgias, No Joint Swelling Skin : No Skin Lesions, No rash Neuro : No Weakness, pos Numbness, No Dizziness, positive Headache Psych : pos Anxiety/Panic, No Depression Heme/Lymph: No Bruising, No Bleeding,No Lymphadenopathy Endocrine : No Polyuria, No Polydipsia All other systems reviewed and are negative [facility] Past Medical History Attestation statement: The following information was validated with the patient. Source: old records reviewed Medical History Asthma Diabetes Hepatitis A Social History Social History (Updated 01/19/24 @ 10:44 by Judith See DO) Alcohol intake: never Patient Tobacco Use Status: Tobacco use Unknown Use of substances other than those prescribed or required for medical reasons: No Advance Directives: No Advance Directives Information Provided: Yes Do you have a plan to hurt others: No Plan Patient : No Physical Exam ED Vital Signs: Vital Signs - 24 hr 01/19/24 10:01 01/19/24 10:25 01/19/24 10:25 Temperature 99.9 F 99.9 F Pulse Rate 142 H 115 H Respiratory Rate 24 H 20 20 Blood Pressure 188/107 H 174/107 H Pulse Oximetry 98 100 Oxygen Delivery Method Room Air Room Air 01/19/24 10:38 01/19/24 11:26 01/19/24 12:36 Temperature Pulse Rate 104 H 95 78 Respiratory Rate 18 22 H 14 Blood Pressure 153/80 H 152/83 H 100/63 Pulse Oximetry 96 99 96 Oxygen Delivery Method Room Air Room Air Room Air 01/19/24 13:58 01/19/24 15:34 Temperature 99.1 F Pulse Rate 77 79 Respiratory Rate 12 12 Blood Pressure 109/71 139/82 Pulse Oximetry 97 98 Oxygen Delivery Method Room Air Room Air BMI result Body Mass Index 26.5 Appearance: Alert. Oriented X3. crying agitated moderate acute distress. Eyes: Pupils equal, round and reactive to light. ENT: Pharynx normal. no swelling noted at all Neck: Normal inspection. Neck supple. no mass felt no swelling CVS: Normal heart rate and rhythm. Pulses normal. Respiratory: No respiratory distress. Breath sounds normal. no wheezes no stridor intermittent dry cough that resolves with talking and resting Abdomen: Soft and nontender. Skin: Skin warm and dry. Normal skin color. Normal skin turgor. no hives Extremities: No lower extremity edema. No calf ttp Neuro: Oriented X 3. No motor deficit. No sensory deficit. Course Course Course Narrative: symptoms go away with versed Reevaluation(s) Reevaluation #1: she seems improved at this time 1103am Reevaluation #2: sleeping soundly after valium Dr. Sparkle deutsch artery would not cause her array of symptoms Neurology to review case as well Reevaluation #3: not toxic, will PO challenge, VS improved Additional Reevaluation(s): tolerating PO Medications Administered Discontinued Medications Generic Name Dose Route Start Last Admin Trade Name Freq PRN Reason Stop Dose Admin Diazepam 5 mg 01/19/24 10:46 01/19/24 11:25 Diazepam 10 Mg/2 Ml Cartridge IVPUSH 01/19/24 10:47 5 mg STAT STA Administration Diphenhydramine HCl 25 mg 01/19/24 10:02 01/19/24 10:15 Diphenhydramine Hcl 50 Mg/Ml Vial IVPUSH 01/19/24 10:03 25 mg ONCE ONE Administration Epinephrine 0.3 mg 01/19/24 10:29 01/19/24 11:26 Epinephrine 1 Mg/Ml Vial IM 01/19/24 10:30 Not Given STAT STA Famotidine 20 mg 01/19/24 10:02 01/19/24 10:20 Famotidine/Pf 20 Mg/2 Ml Vial IVPUSH 01/19/24 10:03 20 mg ONCE ONE Administration Iohexol 100 ml 01/19/24 12:51 01/19/24 12:52 Iohexol 350 Mg/Ml 100 Ml Infus..Btl IV 01/19/24 12:52 70 ml ONCE ONE Administration Methylprednisolone Sodium Succinate 125 mg 01/19/24 10:02 01/19/24 10:20 Methylprednisolone Sod Succ 125 Mg/2 Ml Vial IVPUSH 01/19/24 10:03 125 mg ONCE ONE Administration Midazolam HCl 2 mg 01/19/24 10:02 01/19/24 10:19 Midazolam Hcl/Pf 2 Mg/2 Ml Vial IVPUSH 01/19/24 10:03 2 mg ONCE ONE Administration Midazolam HCl 2 mg 01/19/24 10:29 01/19/24 10:46 Midazolam Hcl/Pf 2 Mg/2 Ml Vial IVPUSH 01/19/24 10:30 2 mg ONCE ONE Administration Medical Decision Making Medical Decision Making MDM Narrative: 48 yo female with PMH of asthma, diabetes, anxiety who comes in with very unusual symptoms of unable to swallow but is drinking water and her voice is normal she has no visible signs of angioedema and she is responding to versed. She also notes headache and R sided parasthesias for 2 days but then abrupt onset of swallowing issues for 40 minutes. She seems to stop with IV versed. I have held epi as I see no external symptoms of allergy and her symptoms go away with benzo. Will add on valium and obtain imaging to see if there is swelling. She has no wheezing, hypoxia, stridor and no voice changes. Differential Diagnosis Differential Diagnoses: The differential diagnosis associated with the presentation includes allergic reaction, globus sensation, anxiety panic attack, would be atypical for stroke Admission/Observation Consideration of admission/observation: Escalation of care including admission/observation considered symptoms all resolved no focal deficits feels much better drinking and no further cough or abnormal choking globus sensation patient and family feel stable for DC does have petechia L arm after high BP on arrival and likely squeezing and agitation initially fighting on arrival due to agitation and anxiety Consult Healthcare Provider Management of the patient was discussed with: Property Management Specialist Sparkle and Ino report symptoms not consistent with presentation aware of CTA but no acute work up or findings at this time no need for further intervention Lab Data MDM Lab Attestation statement: I reviewed the patient's lab results. 01/19/24 11:05 01/19/24 11:05 Labs: Lab Results 01/19/24 Range/Units 11:05 WBC 11.2 H (4.8-10.8) X10*3/uL RBC 4.34 (4.20-5.50) X10*6/uL Hgb 12.5 (12.0-16.0) g/dl Hct 37.4 (37.0-47.0) % MCV 86.2 (80.0-98.0) fL MCH 28.8 (27.0-33.0) pg MCHC 33.4 (31.0-35.0) g/dl RDW 13.3 (11.0-16.0) % Plt Count 281 (160-400) X10*3/uL MPV 9.3 L (9.4-12.3) fL Immature Gran % (Auto) 0.3 (0.0-0.4) % Neut % (Auto) 74.7 H (45-73) % Lymph % (Auto) 20.2 (20-40) % Stewart % (Auto) 3.9 (2-11) % Eos % (Auto) 0.5 (0-4) % Baso % (Auto) 0.4 (0-2) % Lymph # (Auto) 2.3 (1.2-4.9) X10*3/uL Stewart # (Auto) 0.4 (0.1-1.2) X10*3/uL Eos # (Auto) 0.1 (0.0-0.4) X10*3/uL Baso # (Auto) 0.0 (0.0-0.2) X10*3/uL Abs Immat Gran (auto) 0.03 (0.00-0.03) X10*3/uL Absolute Neuts (auto) 8.3 (2.0-8.3) x10*3/uL Absolute Nucleated RBC 0.000 (0.0-0.012) X10*3/uL Nucleated RBC % (auto) 0.0 (0.0-0.2) /100WBC Sodium 136 (135-145) mmol/L Potassium 3.6 (3.3-5.1) mmol/L Chloride 102 (96-108) mmol/L Carbon Dioxide 26 (22-29) mmol/L Anion Gap 12 (12-20) BUN 13 (9-16) mg/dL Creatinine 0.91 (0.5-1.4) mg/dL Estim Creat Clear Calc 76.1 Estimated GFR > 60 Random Glucose 218 H (60-115) mg/dL Calcium 9.2 (8.4-10.2) mg/dL Magnesium 1.6 (1.6-2.6) mg/dL Total Bilirubin 0.3 (0.0-1.0) mg/dL Direct Bilirubin 0.1 (0.0-0.5) mg/dL AST 35 H (5-31) U/L ALT 59 H (0-31) U/L Alkaline Phosphatase 92 (39-117) U/L Troponin I High Sens < 2.7 (<3.5-17.0) ng/L Total Protein 6.8 (6.5-8.0) g/dL Albumin 3.6 (3.5-5.0) g/dL Independent Interpretation I performed an independent interpretation of an: EKG and CT Scan Interpretation: Rate: 101 Rhythm: sinus tach [place]: normal Normal P waves. Normal CARLYN. Normal QRS complex. ST T wave : nonspecific ST T wave changes inf leads, no BETSY qTC: 497 prior studies: present 2021 The study has been interpreted contemporaneously by me. . Radiology Impression Discussion of test interpretation with radiology: I have reviewed the radiologist's reading. Independent Historian Clinical information obtained from an independent historian. History obtained from or confirmed by: Other (son) External Record Review External record reviewed: Office record Critical Care Time Critical Care Time Critical Care Time: Yes Total Critical Care Time: 60 Attestation: repeat bedside assessments, IV versed and valium repeat rounds for symptoms control, medical consult I attest to this time spent taking care of the patient Discharge Plan Discharge Clinical Impression: Paresthesia Difficulty swallowing Qualifiers: Dysphagia type: unspecified Qualified Code(s): R13.10 - Dysphagia, unspecified Patient Disposition: Home, Self-Care Instructions: Paresthesia (ED), Dysphagia (ED) Additional Instructions: rest and stay hydrated today return for any worsening symptoms or concerns. liquid diet today. return for any issues or difficulty breathing follow up with primary care doctor no signs of mass or swelling on CT scan of neck no stroke on CT head no cause for acute symptoms discussed case with vascular doctor and neurologist stay out of the heat, stay with responsible adult all night, return for any return of symptoms Prescriptions: No Action amoxicillin-pot clavulanate [Augmentin] 875-125 mg tablet 1 tab PO BID Qty: 20 0RF metronidazole [Flagyl] 500 mg tablet 500 mg PO TID Qty: 30 0RF dicyclomine 10 mg capsule 10 mg PO BID Qty: 20 0RF prednisone 20 mg tablet 40 mg PO DAILY Qty: 10 0RF codeine-guaifenesin 10-100 mg/5 mL liquid 10 ml PO Q4-6H PRN (Reason: cough) Qty: 237 0RF omeprazole 10 mg capsule,delayed release(DR/EC) 10 mg PO DAILY Qty: 20 0RF ondansetron 4 mg tablet,disintegrating 4 mg PO Q6H PRN (Reason: nausea and vomiting) Qty: 14 0RF albuterol sulfate 90 mcg/actuation aerosol powdr breath activated 2 inh inhalation Q4-6H PRN (Reason: shortness of breath) Qty: 1 0RF prednisone 20 mg tablet 40 mg PO DAILY 5 Days Qty: 10 0RF doxycycline monohydrate 100 mg capsule 100 mg PO BID 10 Days Qty: 20 0RF erythromycin 5 mg/gram (0.5 %) ointment 0.5 inch ophthalmic (eye) Q4H 5 Days Qty: 3.5 0RF Rx Instructions: Apply every 4 hours while awake to the right eye oxycodone 5 mg tablet 5 mg PO Q8H PRN (Reason: pain) Qty: 7 0RF Rx Instructions: Partial Fill upon patient request. ibuprofen 600 mg tablet 600 mg PO Q6H PRN (Reason: pain) Qty: 60 0RF albuterol sulfate 0.63 mg/3 mL solution for nebulization 0.63 mg inhalation QID PRN (Reason: shortness of breath or wheezing) Qty: 75 0RF albuterol sulfate 90 mcg/actuation HFA aerosol inhaler 1 inh inhalation QID PRN (Reason: shortness of breath or wheezing) Qty: 8.5 0RF prednisone 20 mg tablet 20 mg PO DAILY 5 Days Qty: 5 0RF amoxicillin-pot clavulanate 875-125 mg tablet 1 tab PO Q12H 7 Days Qty: 14 0RF metronidazole 500 mg tablet 500 mg PO Q8H 7 Days Qty: 21 0RF oxycodone 5 mg tablet 5 mg PO Q8H PRN (Reason: pain) Qty: 7 0RF Rx Instructions: Partial Fill upon patient request. ondansetron 4 mg tablet,disintegrating 4 mg PO Q8H PRN (Reason: nausea and vomiting) Qty: 14 0RF ketorolac 10 mg tablet 10 mg PO TID PRN (Reason: pain) 5 Days Qty: 15 0RF doxycycline hyclate 100 mg capsule 100 mg PO BID 10 Days Qty: 20 0RF cephalexin 500 mg tablet 500 mg PO Q6H 10 Days Qty: 40 0RF Print Language: Togolese
[2024-01-19] MEDS: diphenhydrAMINE HCL 50 MG/ML VIAL 25 MG IVPUSH (10:15)
[2024-01-19] MEDS: Midazolam HCl/PF 2 MG/2 ML VIAL IVPUSH ×2 (10:19→10:46)
[2024-01-19] MEDS: Famotidine/PF 20 MG/2 ML VIAL IVPUSH (10:20)
[2024-01-19] MEDS: methylPREDNISolone Sod Succ 125 MG/2 ML VIAL IVPUSH (10:20)
--- NOTE | 2024-01-19 10:38 | ECG_ITS ---
Test Reason : chest heaviness Blood Pressure : / mmHG Vent. Rate : 101 BPM Atrial Rate : 101 BPM P-R Int : 162 ms QRS Dur : 080 ms QT Int : 384 ms P-R-T Axes : 053 012 025 degrees QTc Int : 497 ms Sinus tachycardia Possible Left atrial enlargement Possible Inferior infarct , age undetermined Abnormal ECG When compared with ECG of 05-JUL-2022 22:51, No significant change was found Referred By: Judith See Electronically Signed By:Pasquale Stauffer
--- NOTE | 2024-01-19 10:40 | PC.NURSE ---
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 On assessment, airway patent, no oral edema noted. No stridor, LS CTA. Pt appears anxious and tearful. Initially tachycardic 150s, and HTN. Dr See to bedside for assessment and pt medicated as charted. Some improvement noted s/p Versed administration. Pt coughing however able to clear secretions and tolerate water intake. Son at bedside. Petechiae noted to left upper extremity after multiple attempts for BP. Skin pwd. Sinus tach on tele, BP nipple maker improved
[2024-01-19 11:11] LABS: MANUAL DIFF FLAG NO
[2024-01-19 11:13] LABS: Basophils Percent Auto 0.4 % (0-2); Eosinophils Absolute Auto 0.1 X10*3/uL (0.0-0.4); Eosinophils Percent Auto 0.5 % (0-4); Hematocrit 37.4 % (37.0-47.0); Hemoglobin 12.5 g/dl (12.0-16.0); Imm Gran Abs Auto 0.03 X10*3/uL (0.00-0.03); Imm Gran Pct Auto 0.3 % (0.0-0.4); Lymphocytes Absolute Auto 2.3 X10*3/uL (1.2-4.9); Lymphocytes Percent Auto 20.2 % (20-40); Mean Corpuscular HGB Conc 33.4 g/dl (31.0-35.0); Mean Corpuscular Hemoglobin 28.8 pg (27.0-33.0); Mean Corpuscular Volume 86.2 fL (80.0-98.0); Mean Platelet Volume 9.3 fL (9.4-12.3); Monocytes Absolute Auto 0.4 X10*3/uL (0.1-1.2); Monocytes Percent Auto 3.9 % (2-11); Neutrophils Absolute Auto 8.3 x10*3/uL (2.0-8.3); Neutrophils Percent Auto 74.7 % (45-73); Platelet Count 281 X10*3/uL (160-400); Red Blood Count 4.34 X10*6/uL (4.20-5.50); Red Cell Distribution Width 13.3 % (11.0-16.0); White Blood Count 11.2 X10*3/uL (4.8-10.8)
[2024-01-19] MEDS: diazePAM 10 MG/2 ML CARTRIDGE 5 MG IVPUSH (11:25)
[2024-01-19 11:28] LABS: Alanine Aminotransferase 59 U/L (0-31); Albumin Level 3.6 g/dL (3.5-5.0); Alkaline Phosphatase 92 U/L (39-117); Anion Gap 12 (12-20); Aspartate Amino Transferase 35 U/L (5-31); Bilirubin Direct 0.1 mg/dL (0.0-0.5); Bilirubin Total 0.3 mg/dL (0.0-1.0); Blood Urea Nitrogen 13 mg/dL (9-16); Calcium 9.2 mg/dL (8.4-10.2); Carbon Dioxide 26 mmol/L (22-29); Chloride 102 mmol/L (96-108); Creatinine Clr Calc Pharmacy 76.1; Estimated Glomerular Filt Rate > 60; Glucose Random 218 mg/dL (60-115); Magnesium 1.6 mg/dL (1.6-2.6); Potassium 3.6 mmol/L (3.3-5.1); Sodium 136 mmol/L (135-145); Total Protein 6.8 g/dL (6.5-8.0)
[2024-01-19 11:39] LABS: Troponin-I High Sensitivity < 2.7 ng/L (<3.5-17.0)
--- NOTE | 2024-01-19 11:41 | PC.NURSE ---
Pt asleep s/p Valium given. VSS. NSR on monitor
[2024-01-19] MEDS: iohexoL 350 MG/ML 100 ML INFUS..BTL IV (12:52)
--- NOTE | 2024-01-19 14:00 | PC.NURSE ---
Pt is resting comfortably with eyes closed. Family is at bedside. Awaiting CT results and disposition.
--- NOTE | 2024-01-19 15:24 | PC.NURSE ---
Pt ambulatory to bathroom, sl unsteady, family with pt for transfer
== END 2024-01-19 16:28 | disposition home or self-care (01) ==
PROVIDERS: Emergency Provider Emergency Medicine; PCP Physician Assistant Medical
DX: R20.2 Paresthesia of skin (principal); R13.10 Dysphagia, unspecified; R05.9 Cough, unspecified; R00.0 Tachycardia, unspecified; F41.9 Anxiety disorder, unspecified; M54.2 Cervicalgia; R07.89 Other chest pain; R51.9 Headache, unspecified; Z79.899 Other long term (current) drug therapy
CPT/HCPCS: 36415; 70496; 70498; 80048; 80076; 83735; 84484; 85025; 93005; 96374; 96375; 99285; J1200; J2250; J2919; J3360; Q9967

== ENCOUNTER → 2024-01-19 10:38 | Outpatient (BNV) | payer OTHER, SELFPAY | PROVIDERS: Emergency Provider Emergency Medicine; PCP Physician Assistant Medical; Visit Provider Internal Medicine Cardiovascular Disease | DX: R07.89 Other chest pain (principal) | CPT/HCPCS: 93010 ==

== ENCOUNTER 2024-02-14 21:36 | Emergency (ER) | payer OTHER, SELFPAY ==
[2024-02-14 21:45] VITALS: BP 112/73; PULSE 93; RESP 18; TEMP 36.6; O2SAT 100; BMI 24.9
[2024-02-14 22:46] LABS: MANUAL DIFF FLAG NO
[2024-02-14 22:47] LABS: Basophils Percent Auto 0.4 % (0-2); Eosinophils Absolute Auto 0.1 X10*3/uL (0.0-0.4); Eosinophils Percent Auto 0.5 % (0-4); Hematocrit 42.7 % (37.0-47.0); Hemoglobin 14.5 g/dl (12.0-16.0); Imm Gran Abs Auto 0.02 X10*3/uL (0.00-0.03); Imm Gran Pct Auto 0.2 % (0.0-0.4); Lymphocytes Absolute Auto 2.6 X10*3/uL (1.2-4.9); Lymphocytes Percent Auto 27.9 % (20-40); Mean Corpuscular Hemoglobin 28.9 pg (27.0-33.0); Mean Corpuscular Volume 85.2 fL (80.0-98.0); Mean Platelet Volume 9.2 fL (9.4-12.3); Monocytes Absolute Auto 0.4 X10*3/uL (0.1-1.2); Monocytes Percent Auto 4.5 % (2-11); Neutrophils Absolute Auto 6.1 x10*3/uL (2.0-8.3); Neutrophils Percent Auto 66.5 % (45-73); Platelet Count 286 X10*3/uL (160-400); Red Blood Count 5.01 X10*6/uL (4.20-5.50); Red Cell Distribution Width 13.5 % (11.0-16.0); White Blood Count 9.1 X10*3/uL (4.8-10.8)
[2024-02-14 23:02] LABS: Alanine Aminotransferase 60 U/L (0-31); Albumin Level 4.3 g/dL (3.5-5.0); Alkaline Phosphatase 94 U/L (39-117); Anion Gap 14 (12-20); Aspartate Amino Transferase 25 U/L (5-31); Bilirubin Direct 0.1 mg/dL (0.0-0.5); Bilirubin Total 0.3 mg/dL (0.0-1.0); Blood Urea Nitrogen 13 mg/dL (9-16); Calcium 10.5 mg/dL (8.4-10.2); Carbon Dioxide 27 mmol/L (22-29); Chloride 105 mmol/L (96-108); Creatinine Clr Calc Pharmacy 70.3; Estimated Glomerular Filt Rate > 60; Glucose Random 190 mg/dL (60-115); Lipase 72 U/L (8-78); Potassium 4.1 mmol/L (3.3-5.1); Sodium 142 mmol/L (135-145)
--- NOTE | 2024-02-15 00:45 | ED_ITS ---
HPI - Abdominal Pain General Chief Complaint: Abdominal Pain Stated Complaint: abdominal pain Time Seen by Provider: 02/15/24 00:40 Source: patient Mode of arrival: ambulatory Limitations: no limitations History of Present Illness ED Provider: christel BARCENAS narrative: Patient complaining of diarrhea and diffuse abdominal pain for last 4 days having 6-8 watery stools took Imodium today last bowel movement for about 6 hours of slight nausea no vomiting patient has previously had CT scan last was 08/24 which was negative ultrasound 08/24 was also negative for gallstones Related Data Previous Rx's ?Medication ?Instructions ?Recorded amoxicillin 875 mg-potassium 1 tab PO BID #20 tabs 01/22/21 clavulanate 125 mg tablet (Augmentin) dicyclomine 10 mg capsule 10 mg PO BID #20 caps 01/22/21 metronidazole 500 mg tablet 500 mg PO TID #30 tabs 01/22/21 (Flagyl) codeine 10 mg-guaifenesin 100 mg/5 10 ml PO Q4-6H PRN cough #237 mL 04/01/21 mL oral liquid prednisone 20 mg tablet 40 mg (2 x 20 mg) PO DAILY #10 tabs 04/01/21 omeprazole 10 mg capsule,delayed 10 mg PO DAILY #20 caps 12/03/21 release albuterol sulfate 0.63 mg/3 mL 0.63 mg (3 mL) inhalation QID PRN 03/05/22 solution for nebulization shortness of breath or wheezing #75 mL albuterol sulfate 90 mcg/actuation 1 inh inhalation QID PRN shortness 03/05/22 aerosol inhaler of breath or wheezing #8.5 grams prednisone 20 mg tablet 20 mg PO DAILY 5 days #5 tabs 03/05/22 amoxicillin 875 mg-potassium 1 tab PO Q12H 7 days #14 tabs 05/29/22 clavulanate 125 mg tablet metronidazole 500 mg tablet 500 mg PO Q8H 7 days #21 tabs 05/29/22 ondansetron 4 mg disintegrating 4 mg PO Q8H PRN nausea and 05/29/22 tablet vomiting #14 tabs oxycodone 5 mg tablet 5 mg PO Q8H PRN pain #7 tabs 05/29/22 albuterol sulfate 90 mcg/actuation 2 inh inhalation Q4-6H PRN 06/11/22 breath activated powder inhaler shortness of breath #1 ea ondansetron 4 mg disintegrating 4 mg PO Q6H PRN nausea and 06/11/22 tablet vomiting #14 tabs prednisone 20 mg tablet 40 mg (2 x 20 mg) PO DAILY 5 days 06/11/22 #10 tabs doxycycline monohydrate 100 mg 100 mg PO BID 10 days #20 caps 08/10/22 capsule erythromycin 5 mg/gram (0.5 %) eye 0.5 inch ophthalmic (eye) Q4H 5 08/10/22 ointment days #3.5 grams ibuprofen 600 mg tablet 600 mg PO Q6H PRN pain #60 tabs 08/10/22 oxycodone 5 mg tablet 5 mg PO Q8H PRN pain #7 tabs 08/10/22 cephalexin 500 mg tablet 500 mg PO Q6H 10 days #40 tabs 12/06/22 doxycycline hyclate 100 mg capsule 100 mg PO BID 10 days #20 caps 12/06/22 ketorolac 10 mg tablet 10 mg PO TID PRN pain 5 days #15 12/06/22 tabs dicyclomine 20 mg tablet 20 mg PO QID PRN abdominal pain 02/15/24 #20 tabs Allergies Allergy/AdvReac Type Severity Reaction Status Date / Time ciprofloxacin [From CIPRO] Allergy Intermediate RASH Verified 02/14/24 21:59 Sulfa (Sulfonamide Allergy Intermediate RASH Verified 02/14/24 21:59 Antibiotics) [SULFA (SULFONAMIDE ANTIBIOTICS)] sulfamethoxazole Allergy Unknown SWELLING Verified 02/14/24 21:59 [From SEPTRA] trimethoprim [From SEPTRA] Allergy Unknown SWELLING Verified 02/14/24 21:59 SEAFOOD Allergy Severe ANAPHYLAXIS Uncoded 07/05/22 22:45 Review of Systems Review of Systems Yes all other systems are reviewed and are negative PMFSH Past Medical History Medical History Asthma Diabetes Hepatitis A Social History Social History Alcohol intake: never Patient Tobacco Use Status: Tobacco use Unknown Smoked in Last 30 Days: No Use of substances other than those prescribed or required for medical reasons: No Advance Directives: No Advance Directives Information Provided: Yes Do you have a plan to hurt others: No Plan Patient : No Physical Exam ED Vital Signs: Vital Signs - 24 hr 02/14/24 21:45 02/15/24 01:19 02/15/24 01:57 Temperature 97.8 F 98.5 F Pulse Rate 93 84 86 Respiratory Rate 18 16 18 Blood Pressure 112/73 111/70 117/79 Pulse Oximetry 100 97 96 Oxygen Delivery Method Room Air Room Air Room Air BMI result Body Mass Index 24.9 Appearance: Alert. Oriented X3. No acute distress. Eyes: No pallor or icterus ENT: Pharynx normal. Oral Mucosa moist Neck: Normal inspection. Neck supple. CVS: Normal heart rate and rhythm. Pulses normal. Respiratory: No respiratory distress. Equal air entry bilateral, no wheezing/rales/rhonchi Abdomen: Soft and diffuse tenderness. Bowel sounds are present, no mass palpable, no CVA tenderness Skin: Skin warm and dry. Normal skin color. Normal skin turgor. Extremities: No lower extremity edema. No calf tenderness Neuro: Oriented X 3. Medical Decision Making Medical Decision Making [facility] Narrative: Patient's gastroenteritis labs are stable, labs are still will prescribe dicyclomine Differential Diagnosis Differential Diagnoses: The differential diagnosis associated with the presentation includes Lab Data [facility] Lab Attestation statement: I reviewed the patient's lab results. 02/14/24 22:41 02/14/24 22:41 Labs: Lab Results 02/14/24 02/15/24 Range/Units 22:41 01:20 WBC 9.1 (4.8-10.8) X10*3/uL RBC 5.01 (4.20-5.50) X10*6/uL Hgb 14.5 (12.0-16.0) g/dl Hct 42.7 (37.0-47.0) % MCV 85.2 (80.0-98.0) fL MCH 28.9 (27.0-33.0) pg MCHC 34.0 (31.0-35.0) g/dl RDW 13.5 (11.0-16.0) % Plt Count 286 (160-400) X10*3/uL MPV 9.2 L (9.4-12.3) fL Immature Gran % (Auto) 0.2 (0.0-0.4) % Neut % (Auto) 66.5 (45-73) % Lymph % (Auto) 27.9 (20-40) % Loup % (Auto) 4.5 (2-11) % Eos % (Auto) 0.5 (0-4) % Baso % (Auto) 0.4 (0-2) % Lymph # (Auto) 2.6 (1.2-4.9) X10*3/uL Loup # (Auto) 0.4 (0.1-1.2) X10*3/uL Eos # (Auto) 0.1 (0.0-0.4) X10*3/uL Baso # (Auto) 0.0 (0.0-0.2) X10*3/uL Abs Immat Gran (auto) 0.02 (0.00-0.03) X10*3/uL Absolute Neuts (auto) 6.1 (2.0-8.3) x10*3/uL Absolute Nucleated RBC 0.000 (0.0-0.012) X10*3/uL Nucleated RBC % (auto) 0.0 (0.0-0.2) /100WBC Sodium 142 (135-145) mmol/L Potassium 4.1 (3.3-5.1) mmol/L Chloride 105 (96-108) mmol/L Carbon Dioxide 27 (22-29) mmol/L Anion Gap 14 (12-20) BUN 13 (9-16) mg/dL Creatinine 0.89 (0.5-1.4) mg/dL Estim Creat Clear Calc 70.3 Estimated GFR > 60 Random Glucose 190 H (60-115) mg/dL Calcium 10.5 H D (8.4-10.2) mg/dL Total Bilirubin 0.3 (0.0-1.0) mg/dL Direct Bilirubin 0.1 (0.0-0.5) mg/dL AST 25 (5-31) U/L ALT 60 H (0-31) U/L Alkaline Phosphatase 94 (39-117) U/L Total Protein 8.0 (6.5-8.0) g/dL Albumin 4.3 (3.5-5.0) g/dL Lipase 72 (8-78) U/L Urine Color Yellow Urine Appearance Clear Urine pH 6.5 (5.0-9.0) Ur Specific Dennard >= 1.030 H (1.005-1.025) Urine Protein Negative (Neg-Trace) mg/dL Urine Glucose (UA) >=1000 H (Negative) mg/dL Urine Ketones Negative (Negative) mg/dL Urine Blood Negative (Negative) Urine Nitrite Negative (Negative) Ur Leukocyte Esterase Negative (Negative) Urine RBC 3-5 H (0-2) /HPF Urine WBC 0-5 (0-5) /HPF Ur Squamous Epith Cells 3-5 (0-2) /HPF Urine Bacteria Trace (None Seen) Hyaline Casts 0-2 (0-2) /LPF Urine Yeast Present Medications Administered Discontinued Medications Generic Name Dose Route Start Last Admin Trade Name Freq PRN Reason Stop Dose Admin Dicyclomine HCl 20 mg 02/15/24 01:09 02/15/24 01:42 Dicyclomine Hcl 10 Mg Capsule PO 02/15/24 01:10 20 mg ONCE ONE Administration Discharge Plan Discharge Clinical Impression: Diarrhea Patient Disposition: Home, Self-Care Instructions: Acute Diarrhea (ED) Additional Instructions: Take dicyclomine 1 tablet every 6 hours as needed for diarrhea and abdominal cramps Prescriptions: New dicyclomine 20 mg tablet 20 mg PO QID PRN (Reason: abdominal pain) Qty: 20 0RF No Action amoxicillin-pot clavulanate [Augmentin] 875-125 mg tablet 1 tab PO BID Qty: 20 0RF metronidazole [Flagyl] 500 mg tablet 500 mg PO TID Qty: 30 0RF dicyclomine 10 mg capsule 10 mg PO BID Qty: 20 0RF prednisone 20 mg tablet 40 mg PO DAILY Qty: 10 0RF codeine-guaifenesin 10-100 mg/5 mL liquid 10 ml PO Q4-6H PRN (Reason: cough) Qty: 237 0RF omeprazole 10 mg capsule,delayed release(DR/EC) 10 mg PO DAILY Qty: 20 0RF ondansetron 4 mg tablet,disintegrating 4 mg PO Q6H PRN (Reason: nausea and vomiting) Qty: 14 0RF albuterol sulfate 90 mcg/actuation aerosol powdr breath activated 2 inh inhalation Q4-6H PRN (Reason: shortness of breath) Qty: 1 0RF prednisone 20 mg tablet 40 mg PO DAILY 5 Days Qty: 10 0RF doxycycline monohydrate 100 mg capsule 100 mg PO BID 10 Days Qty: 20 0RF erythromycin 5 mg/gram (0.5 %) ointment 0.5 inch ophthalmic (eye) Q4H 5 Days Qty: 3.5 0RF Rx Instructions: Apply every 4 hours while awake to the right eye oxycodone 5 mg tablet 5 mg PO Q8H PRN (Reason: pain) Qty: 7 0RF Rx Instructions: Partial Fill upon patient request. ibuprofen 600 mg tablet 600 mg PO Q6H PRN (Reason: pain) Qty: 60 0RF albuterol sulfate 0.63 mg/3 mL solution for nebulization 0.63 mg inhalation QID PRN (Reason: shortness of breath or wheezing) Qty: 75 0RF albuterol sulfate 90 mcg/actuation HFA aerosol inhaler 1 inh inhalation QID PRN (Reason: shortness of breath or wheezing) Qty: 8.5 0RF prednisone 20 mg tablet 20 mg PO DAILY 5 Days Qty: 5 0RF amoxicillin-pot clavulanate 875-125 mg tablet 1 tab PO Q12H 7 Days Qty: 14 0RF metronidazole 500 mg tablet 500 mg PO Q8H 7 Days Qty: 21 0RF oxycodone 5 mg tablet 5 mg PO Q8H PRN (Reason: pain) Qty: 7 0RF Rx Instructions: Partial Fill upon patient request. ondansetron 4 mg tablet,disintegrating 4 mg PO Q8H PRN (Reason: nausea and vomiting) Qty: 14 0RF ketorolac 10 mg tablet 10 mg PO TID PRN (Reason: pain) 5 Days Qty: 15 0RF doxycycline hyclate 100 mg capsule 100 mg PO BID 10 Days Qty: 20 0RF cephalexin 500 mg tablet 500 mg PO Q6H 10 Days Qty: 40 0RF Interventions: ED Discharge Assessment Last Done: 02/15/24 01:57 Discharge Date/Time: 02/15/24 01:44 Print Language: [place]
[2024-02-15 01:19] VITALS: BP 111/70; PULSE 84; RESP 16; O2SAT 97
[2024-02-15 01:26] LABS: Appearance Urine Clear; Color Urine Yellow; Glucose Urine UA >=1000 mg/dL (Negative); Leukocyte Esterase Urine Negative (Negative); Nitrite Urine Negative (Negative); PH 6.5 (5.0-9.0); Specific Gravity - Urine >= 1.030 (1.005-1.025); UMIC TRIGGER UACC YES; Urine Blood Negative (Negative); Urine Ketones Negative (Negative); Urine Protein Negative (Neg-Trace)
[2024-02-15 01:37] LABS: Bacteria Urine Trace (None Seen); Hyaline Casts Urine 0-2 /LPF (0-2); WBC Urine 0-5 /HPF (0-5)
[2024-02-15] MEDS: Dicyclomine HCl 10 MG CAPSULE 20 MG PO (01:42)
[2024-02-15 01:57] VITALS: BP 117/79; PULSE 86; RESP 18; TEMP 36.9; O2SAT 96
== END 2024-02-15 01:44 | disposition home or self-care (01) ==
PROVIDERS: Emergency Provider Internal Medicine
DX: R11.2 Nausea with vomiting, unspecified (principal); R19.7 Diarrhea, unspecified; Z79.899 Other long term (current) drug therapy
CPT/HCPCS: 36415; 80048; 80076; 81001; 83690; 85025; 99283; 99284

== ENCOUNTER 2024-09-28 19:06 | Emergency (ER) | payer OTHER, SELFPAY ==
--- NOTE | ~2024-09-28 | CT_ITS ---
CLINICAL HISTORY: pain CT abdomen pelvis without and with intravenous contrast Comparison: CT/SR - CT ABDOMEN PELVIS W IV CON - 08/10/22 15:52 EST Findings: Visualized lungs are clear. Normal size heart. Hepatic steatosis. Gallbladder, pancreas, spleen are within normal limits. Bilateral adrenal adenomas. No hydronephrosis. Symmetric contrast enhancement of the kidneys. Aortic atherosclerosis. No aneurysm. Celiac artery, SMA, bilateral renal arteries, GUST[place] and bilateral iliac arteries are patent. Portal venous system is patent. No contrast extravasation. No bowel obstruction, pneumatosis or pneumoperitoneum. Normal appendix. Hysterectomy. Urinary bladder is within normal limits. Right perianal abscess measuring 2.2 x 1.6 cm. No acute osseous findings. Impression: No evidence of active gastrointestinal bleeding. Right perianal abscess measuring 2.2 x 1.6 cm. This document has been electronically signed by: Zoran Osman MD on 09/29/2024 01:36:01
[2024-09-28 19:45] VITALS: BP 106/70; PULSE 119; RESP 20; TEMP 37.1; O2SAT 100; BMI 23.6
--- NOTE | 2024-09-28 19:54 | ED.GENADULT ---
HPI - General Adult General Chief complaint: Abdominal Pain Stated complaint: Constipation, Vaginal & Anal bleeding, Stomach/ CP Time Seen by Provider: 09/28/24 22:54 Source: patient Limitations: language barrier History of Present Illness ED Provider: Ninoska Olmstead PA-C HPI narrative: 49-year-old female with a history of diabetes, hepatitis a and asthma, presents with abdominal pain/rectal pain and bleeding x2 days. Patient states she is having significant bleeding from her rectum, soaking through 6 pads a day. She is also constipated, last bowel movement was 2 days ago. Patient states when she has a bowel movement it has been extremely painful. Associated nausea vomiting, and poor oral intake. Denies fever. Related Data Home Medications ?Medication ?Instructions ?Recorded ?Confirmed cetirizine 10 mg tablet 10 mg PO DAILY allergies 09/29/24 09/29/24 clonazepam 0.5 mg tablet 0.5 mg PO BID PRN Anxiety 09/29/24 09/29/24 clonidine HCl 0.3 mg tablet 0.3 mg PO BEDTIME 09/29/24 09/29/24 doxepin 100 mg capsule 100 mg PO BEDTIME 09/29/24 09/29/24 empagliflozin 25 mg tablet 25 mg PO DAILY diabetes mellitus 09/29/24 09/29/24 (Jardiance) lamotrigine 150 mg tablet 150 mg PO BEDTIME 09/29/24 09/29/24 montelukast 10 mg tablet 10 mg PO DAILY asthma 09/29/24 09/29/24 pantoprazole 40 mg tablet,delayed 40 mg PO BID@0630,1630 09/29/24 09/29/24 release pregabalin 150 mg capsule 150 mg PO DAILY 09/29/24 09/29/24 pregabalin 150 mg capsule 300 mg PO BEDTIME 09/29/24 09/29/24 semaglutide 0.25 mg or 0.5 mg (2 0.5 mg subcut TU 09/29/24 09/29/24 mg/3 mL) subcutaneous pen injector (Ozempic) spironolactone 25 mg tablet 25 mg PO DAILY 09/29/24 09/29/24 sucralfate 1 gram tablet 1 g PO QID PRN abdominal pain 09/29/24 09/29/24 tizanidine 4 mg tablet 4 mg PO TID muscle pain 09/29/24 09/29/24 tramadol 50 mg tablet 50 mg PO Q12H PRN pain 09/29/24 09/29/24 Previous Rx's ?Medication ?Instructions ?Recorded amoxicillin 875 mg-potassium 1 tab PO BID #14 tabs 09/29/24 clavulanate 125 mg tablet ibuprofen 400 mg tablet 400 mg PO Q6H PRN pain #14 tabs 09/29/24 oxycodone 5 mg tablet 5 mg PO Q6H PRN pain #14 tabs 09/29/24 polyethylene glycol 3350 17 17 g PO DAILY #119 grams 09/29/24 gram/dose oral powder (ClearLax) Allergies Allergy/AdvReac Type Severity Reaction Status Date / Time ciprofloxacin [From CIPRO] Allergy Intermediate RASH Verified 09/28/24 19:48 Sulfa (Sulfonamide Allergy Intermediate RASH Verified 09/28/24 19:48 Antibiotics) [SULFA (SULFONAMIDE ANTIBIOTICS)] sulfamethoxazole Allergy Unknown SWELLING Verified 09/28/24 19:48 [From ] trimethoprim [From ] Allergy Unknown SWELLING Verified 09/28/24 19:48 SEAFOOD Allergy Severe ANAPHYLAXIS Uncoded 09/28/24 19:48 Review of Systems Review of Systems: Yes all other systems are reviewed and are negative Constitutional: Constitutional: Denies fatigue and Denies fever(s) Cardiovascular: Cardiovascular: Denies chest pain and Denies dyspnea Respiratory: Respiratory: Denies cough and Denies dyspnea Gastrointestinal: Gastrointestinal: Reports abdominal pain, Reports hematochezia, Reports constipation, Reports nausea and Reports vomiting Endocrine: Endocrine: Denies fatigue PMFSH Past Medical History Attestation statement: The following information was validated with the patient. Medical History Asthma Diabetes Hepatitis A Social History Social History Alcohol intake: never Patient Tobacco Use Status: Tobacco use Unknown Physical Exam ED Vital Signs: Vital Signs - 24 hr 09/28/24 19:45 09/28/24 23:41 09/29/24 00:25 Temperature 98.8 F 99.1 F 99.1 F Pulse Rate 119 H 105 H 104 H Respiratory Rate 20 16 12 Blood Pressure 106/70 135/79 150/90 H Pulse Oximetry 100 97 99 Oxygen Delivery Method Room Air Room Air Room Air 09/29/24 01:31 09/29/24 04:18 09/29/24 05:58 Temperature 98.9 F 98.9 F 98.7 F Pulse Rate 104 H 95 85 Respiratory Rate 12 10 L 12 Blood Pressure 154/79 H 103/54 L 110/69 Pulse Oximetry 97 98 95 Oxygen Delivery Method Room Air Room Air Room Air 09/29/24 07:46 09/29/24 14:20 09/29/24 15:48 Temperature 98.3 F Pulse Rate 87 91 90 Respiratory Rate 16 16 13 Blood Pressure 120/70 103/48 L 89/50 L Pulse Oximetry 98 99 97 Oxygen Delivery Method Room Air Room Air Room Air 09/29/24 16:25 09/29/24 16:46 Temperature 98.3 F Pulse Rate 96 96 Respiratory Rate 16 16 Blood Pressure 101/63 101/63 Pulse Oximetry 97 97 Oxygen Delivery Method Room Air Room Air BMI result Body Mass Index 23.6 Const Other: Alert Orientation/consciousness: patient oriented x3 Resp Effort & Inspection: normal respiratory effort Cardio Other: Normal peripheral perfusion GI Other: Abdomen is soft, nondistended, mild to moderate tenderness to palpation across lower abdomen without guarding, there was no active bleeding per her rectum, I do not see any external lesions or abscess formation Skin Other: Warm dry no rash Neuro General: patient oriented x3, no focal motor deficits and CN's II-XI intact bilaterally Psych Other: Cooperative Course Course Course Narrative: RME: 49 yold female with pmh of colitis and hysterectomy presents rectal bleeding and vaginal bleeding with abdominal pain and feeling weak. Patient states using 6 pads per day. Patient states last bowel movement was 2 days ago. EKG labs ordered 9:01pm: patient will be brought by back to the main ED due to elevated anion gap and Betahydroxyate Reevaluation(s) Reevaluation #1: Pending the patient's electrolytes back, it appears that she may be in DKA, we will be giving 5 units of insulin, ordering concurrent D5 with a LR given her sugars are only 216, giving a bolus of LR. My plan is to repeat Q 1 our point of care sugars and her electrolytes and an hour to see if her potassium drops Reevaluation #2: Close the gap, her sugars have been maintained, we can discontinue the D5 now, ordering another L of LR....... CT scan returning, she was evidence of a perirectal abscess, we will be ordering blood cultures and a lactic starting Zosyn, we will page Dr. Anguiano for surgical consult, I have relayed the information to the patient.... Adding additional pain medicine Reevaluation #3: Dr. Medina: this patient was signed out to me by the overnight physician at change of shift. The plan was for the patient to be seen by Dr. Anguiano of General surgery to perform bedside abscess drainage procedure. He did this. The patient was observed afterwards. She was given an additional dose of IV ceftriaxone and an oral dose of metronidazole. She was given medication for pain. She ultimately seemed to feel well enough for discharge. She will be prescribed Augmentin 875 mg b.i.d.. I also sent a prescription for ibuprofen oxycodone. She is supposed to follow up with Dr. Anguiano on Wednesday. Time: 17:46 Consultations Consultation #1: Patient Dr. Anguiano sent Dr. Farias the CT read, he states he will see the patient 1st thing in the morning, I asked if he was going to admit the patient, he states again that he will see the patient 1st thing in the morning. I will be making her a physician obs Time: 03:16 Medications Administered Discontinued Medications Generic Name Dose Route Start Last Admin Trade Name Karolina PRN Reason Stop Dose Admin Ceftriaxone Sodium 2 gm 09/29/24 13:40 09/29/24 14:17 Ceftriaxone Sodium 2 Gm Vial IVPUSH 09/29/24 13:41 2 gm ONCE ONE Administration Hydromorphone HCl 1 mg 09/29/24 00:53 09/29/24 01:03 Hydromorphone Hcl 1 Mg/Ml Syringe IVPUSH 09/29/24 00:54 1 mg ONCE ONE Administration Protocol Hydromorphone HCl 1 mg 09/29/24 10:48 09/29/24 11:18 Hydromorphone Hcl 1 Mg/Ml Syringe IVPUSH 09/29/24 10:49 1 mg ONCE ONE Administration Protocol Lactated Ringer's 1,000 mls @ 999 mls/hr 09/28/24 23:00 09/29/24 01:25 Lr IV 09/29/24 00:00 Infused .Q1H1M SHANTE Infusion Lactated Ringer's 1,000 mls @ 999 mls/hr 09/28/24 23:00 09/29/24 01:25 Lr IV 09/29/24 00:00 Infused .Q1H1M SHANTE Infusion Dextrose/Lactated Ringer's 1,000 mls @ 100 mls/hr 09/28/24 23:45 09/29/24 07:00 D5lr IVCONT Infused .Q10H SHANTE Infusion Piperacillin Sod/Tazobactam 50 mls @ 100 mls/hr 09/29/24 03:11 09/29/24 04:43 Sod 3.375 gm/ Sodium Chloride IV 09/29/24 03:40 Infused ONCE ONE Infusion Lactated Ringer's 1,000 mls @ 999 mls/hr 09/29/24 04:15 09/29/24 05:41 Lr IV 09/29/24 05:15 Infused .Q1H1M SHANTE Infusion Acetaminophen 1,000 mg in 100 mls @ 400 mls/hr 09/29/24 13:40 09/29/24 14:30 Ofirmev IV 09/29/24 13:54 Infused ONCE ONE Infusion Insulin Human Regular 5 unit 09/28/24 23:50 09/29/24 00:15 Insulin Regular, Human 100 Unit/Ml 10 Ml Vial IVPUSH 09/28/24 23:51 5 unit ONCE ONE Administration Iohexol 85 ml 09/28/24 23:59 09/29/24 00:00 Iohexol 350 Mg/Ml 100 Ml Infus..Btl IV 09/29/24 00:00 85 ml ONCE ONE Administration Ketorolac Tromethamine 15 mg 09/29/24 00:53 09/29/24 01:03 Ketorolac Tromethamine 15 Mg/Ml Vial IVPUSH 09/29/24 00:54 15 mg ONCE ONE Administration Ketorolac Tromethamine 10 mg 09/29/24 13:40 09/29/24 14:13 Ketorolac Tromethamine 15 Mg/Ml Vial IVPUSH 09/29/24 13:41 10 mg ONCE ONE Administration Lidocaine HCl 30 ml 09/29/24 11:12 09/29/24 11:20 Lidocaine Hcl 1 % 10 Ml Vial INFILTRATI 09/29/24 11:13 30 ml ONCE ONE Administration Metronidazole 500 mg 09/29/24 13:40 09/29/24 14:18 Metronidazole 500 Mg Tablet PO 09/29/24 13:41 500 mg ONCE ONE Administration Morphine Sulfate 4 mg 09/28/24 22:57 09/28/24 23:40 Morphine Sulfate 4 Mg/Ml Cartridge IVPUSH 09/28/24 22:58 4 mg ONCE ONE Administration Protocol Morphine Sulfate 4 mg 09/29/24 03:33 09/29/24 03:40 Morphine Sulfate 4 Mg/Ml Cartridge IVPUSH 09/29/24 03:34 4 mg ONCE ONE Administration Protocol Morphine Sulfate 4 mg 09/29/24 08:14 09/29/24 08:28 Morphine Sulfate 4 Mg/Ml Cartridge IVPUSH 09/29/24 08:15 4 mg ONCE ONE Administration Protocol Ondansetron HCl 4 mg 09/28/24 22:56 09/28/24 23:40 Ondansetron Hcl 4 Mg/2 Ml Vial IVPUSH 09/28/24 22:57 4 mg ONCE ONE Administration Ondansetron HCl 4 mg 09/29/24 08:15 09/29/24 08:27 Ondansetron Hcl 4 Mg/2 Ml Vial IVPUSH 09/29/24 08:16 4 mg ONCE ONE Administration Oxycodone HCl 10 mg 09/29/24 10:48 09/29/24 11:18 Oxycodone Hcl Immed Release 5 Mg Tablet PO 09/29/24 10:49 10 mg ONCE ONE Administration Medical Decision Making Medical Decision Making MDM Narrative: 49-year-old female with a history of diabetes, hepatitis a and asthma, presents with abdominal pain/rectal pain and bleeding x2 days. Patient states she is having significant bleeding from her rectum, soaking through 6 pads a day. She is also constipated, last bowel movement was 2 days ago. Patient states when she has a bowel movement it has been extremely painful. Associated nausea vomiting, and poor oral intake. Denies fever. Problem: Diabetes History: Per patient I have considered the following differential diagnoses: Lower GI bleed, polyps, internal hemorrhoids, diverticulosis, diverticulitis, colitis, perirectal abscess Plan: We will be obtaining a CT scan of the abdomen, the patient was extremely painful we will be obtained a rectal temp. We will be giving analgesia, fluid and antiemetic. On my external exam I do not see any obvious hemorrhoids, or abscess formation. I have independently reviewed the following tests: Labs: Leukocytosis noted with left shift, not anemic, patient was acidotic, she has a gap of 27, her sugars to 16, but beta hydroxy is greater than 5, lactic 0.9..... Repeat electrolytes, the gap is closed it is now 19, her bicarb improved to 18, her sugars have maintain 200s CT abdomen and pelvis: Lab Data 09/28/24 19:58 09/29/24 01:21 Labs: Lab Results 09/28/24 09/28/24 09/29/24 Range/Units 19:58 20:02 01:02 WBC 19.0 H (4.8-10.8) X10*3/uL RBC 5.26 (4.20-5.50) X10*6/uL Hgb 15.3 (12.0-16.0) g/dl Hct 47.0 (37.0-47.0) % MCV 89.4 (80.0-98.0) fL MCH 29.1 (27.0-33.0) pg MCHC 32.6 (31.0-35.0) g/dl RDW 13.2 (11.0-16.0) % Plt Count 381 D (160-400) X10*3/uL MPV 9.4 (9.4-12.3) fL Immature Gran % (Auto) 0.5 H (0.0-0.4) % Neut % (Auto) 80.8 H (45-73) % Lymph % (Auto) 12.8 L (20-40) % [place] % (Auto) 5.2 (2-11) % Eos % (Auto) 0.4 (0-4) % Baso % (Auto) 0.3 (0-2) % Lymph # (Auto) 2.4 (1.2-4.9) X10*3/uL [place] # (Auto) 1.0 (0.1-1.2) X10*3/uL Eos # (Auto) 0.1 (0.0-0.4) X10*3/uL Baso # (Auto) 0.1 (0.0-0.2) X10*3/uL Abs Immat Gran (auto) 0.10 H (0.00-0.03) X10*3/uL Absolute Neuts (auto) 15.4 H (2.0-8.3) x10*3/uL Absolute Nucleated RBC 0.000 (0.0-0.012) X10*3/uL Nucleated RBC % (auto) 0.0 (0.0-0.2) /100WBC PT 11.7 (10.9-12.4) SEC INR 1.0 (0.9-1.1) APTT 34.6 (26.0-36.8) SEC Sodium 137 (135-145) mmol/L Potassium 4.5 (3.3-5.1) mmol/L Chloride 100 (96-108) mmol/L Carbon Dioxide 15 L (22-29) mmol/L Anion Gap 27 H (12-20) BUN 11 (9-16) mg/dL Creatinine 1.00 (0.5-1.4) mg/dL Estim Creat Clear Calc 61.9 Estimated GFR 59 POC Glucose 207 H (60-115) mg/dL Random Glucose 216 H (60-115) mg/dL Lactic Acid (0.5-2.0) mmol/L Calcium 9.9 (8.4-10.2) mg/dL Total Bilirubin 0.5 (0.0-1.0) mg/dL AST 19 (5-31) U/L ALT 34 H (0-31) U/L Alkaline Phosphatase 139 H (39-117) U/L Troponin I High Sens < 2.7 (<3.5-17.0) ng/L Total Protein 9.1 H (6.5-8.0) g/dL Albumin 4.3 (3.5-5.0) g/dL Beta-Hydroxybutyrate 5.86 H (0.02-0.27) mmol/L Beta HCG, Quant 8 mIU/mL Urine Color Yellow Urine Appearance Clear Urine pH 5.5 (5.0-9.0) Ur Specific [place] >= 1.030 H (1.005-1.025) Urine Protein Negative (Neg-Trace) mg/dL Urine Glucose (UA) >=1000 H (Negative) mg/dL Urine Ketones >=160 (Negative) mg/dL Urine Blood Trace H (Negative) Urine Nitrite Negative (Negative) Ur Leukocyte Esterase Negative (Negative) Urine RBC 0-2 (0-2) /HPF Urine WBC 6-10 H (0-5) /HPF Ur Squamous Epith Cells 6-10 (0-2) /HPF Urine Bacteria None Seen (None Seen) Hyaline Casts 3-5 (0-2) /LPF Urine Test NEGATIVE (NEGATIVE) 09/29/24 09/29/24 09/29/24 Range/Units 01:21 02:00 03:31 WBC (4.8-10.8) X10*3/uL RBC (4.20-5.50) X10*6/uL Hgb (12.0-16.0) g/dl Hct (37.0-47.0) % MCV (80.0-98.0) fL MCH (27.0-33.0) pg MCHC (31.0-35.0) g/dl RDW (11.0-16.0) % Plt Count (160-400) X10*3/uL MPV (9.4-12.3) fL Immature Gran % (Auto) (0.0-0.4) % Neut % (Auto) (45-73) % Lymph % (Auto) (20-40) % [place] % (Auto) (2-11) % Eos % (Auto) (0-4) % Baso % (Auto) (0-2) % Lymph # (Auto) (1.2-4.9) X10*3/uL [place] # (Auto) (0.1-1.2) X10*3/uL Eos # (Auto) (0.0-0.4) X10*3/uL Baso # (Auto) (0.0-0.2) X10*3/uL Abs Immat Gran (auto) (0.00-0.03) X10*3/uL Absolute Neuts (auto) (2.0-8.3) x10*3/uL Absolute Nucleated RBC (0.0-0.012) X10*3/uL Nucleated RBC % (auto) (0.0-0.2) /100WBC PT (10.9-12.4) SEC INR (0.9-1.1) APTT (26.0-36.8) SEC Sodium 136 (135-145) mmol/L Potassium 4.0 (3.3-5.1) mmol/L Chloride 103 (96-108) mmol/L Carbon Dioxide 18 L (22-29) mmol/L Anion Gap 19 (12-20) BUN 9 (9-16) mg/dL Creatinine 0.87 (0.5-1.4) mg/dL Estim Creat Clear Calc 71.1 Estimated GFR > 60 POC Glucose 212 H (60-115) mg/dL Random Glucose 208 H (60-115) mg/dL Lactic Acid 0.9 (0.5-2.0) mmol/L Calcium 9.5 (8.4-10.2) mg/dL Total Bilirubin 0.3 (0.0-1.0) mg/dL AST 18 (5-31) U/L ALT 30 (0-31) U/L Alkaline Phosphatase 131 H (39-117) U/L Troponin I High Sens (<3.5-17.0) ng/L Total Protein 8.4 H (6.5-8.0) g/dL Albumin 4.0 (3.5-5.0) g/dL Beta-Hydroxybutyrate (0.02-0.27) mmol/L Beta HCG, Quant mIU/mL Urine Color Urine Appearance Urine pH (5.0-9.0) Ur Specific [place] (1.005-1.025) Urine Protein (Neg-Trace) mg/dL Urine Glucose (UA) (Negative) mg/dL Urine Ketones (Negative) mg/dL Urine Blood (Negative) Urine Nitrite (Negative) Ur Leukocyte Esterase (Negative) Urine RBC (0-2) /HPF Urine WBC (0-5) /HPF Ur Squamous Epith Cells (0-2) /HPF Urine Bacteria (None Seen) Hyaline Casts (0-2) /LPF Urine Test (NEGATIVE) 09/29/24 Range/Units 08:08 WBC (4.8-10.8) X10*3/uL RBC (4.20-5.50) X10*6/uL Hgb (12.0-16.0) g/dl Hct (37.0-47.0) % MCV (80.0-98.0) fL MCH (27.0-33.0) pg MCHC (31.0-35.0) g/dl RDW (11.0-16.0) % Plt Count (160-400) X10*3/uL MPV (9.4-12.3) fL Immature Gran % (Auto) (0.0-0.4) % Neut % (Auto) (45-73) % Lymph % (Auto) (20-40) % [place] % (Auto) (2-11) % Eos % (Auto) (0-4) % Baso % (Auto) (0-2) % Lymph # (Auto) (1.2-4.9) X10*3/uL [place] # (Auto) (0.1-1.2) X10*3/uL Eos # (Auto) (0.0-0.4) X10*3/uL Baso # (Auto) (0.0-0.2) X10*3/uL Abs Immat Gran (auto) (0.00-0.03) X10*3/uL Absolute Neuts (auto) (2.0-8.3) x10*3/uL Absolute Nucleated RBC (0.0-0.012) X10*3/uL Nucleated RBC % (auto) (0.0-0.2) /100WBC PT (10.9-12.4) SEC INR (0.9-1.1) APTT (26.0-36.8) SEC Sodium (135-145) mmol/L Potassium (3.3-5.1) mmol/L Chloride (96-108) mmol/L Carbon Dioxide (22-29) mmol/L Anion Gap (12-20) BUN (9-16) mg/dL Creatinine (0.5-1.4) mg/dL Estim Creat Clear Calc Estimated GFR POC Glucose 128 H (60-115) mg/dL Random Glucose (60-115) mg/dL Lactic Acid (0.5-2.0) mmol/L Calcium (8.4-10.2) mg/dL Total Bilirubin (0.0-1.0) mg/dL AST (5-31) U/L ALT (0-31) U/L Alkaline Phosphatase (39-117) U/L Troponin I High Sens (<3.5-17.0) ng/L Total Protein (6.5-8.0) g/dL Albumin (3.5-5.0) g/dL Beta-Hydroxybutyrate (0.02-0.27) mmol/L Beta HCG, Quant mIU/mL Urine Color Urine Appearance Urine pH (5.0-9.0) Ur Specific [place] (1.005-1.025) Urine Protein (Neg-Trace) mg/dL Urine Glucose (UA) (Negative) mg/dL Urine Ketones (Negative) mg/dL Urine Blood (Negative) Urine Nitrite (Negative) Ur Leukocyte Esterase (Negative) Urine RBC (0-2) /HPF Urine WBC (0-5) /HPF Ur Squamous Epith Cells (0-2) /HPF Urine Bacteria (None Seen) Hyaline Casts (0-2) /LPF Urine Test (NEGATIVE) Discharge Plan Discharge Clinical Impression: Perianal abscess Patient Disposition: Home, Self-Care Instructions: Rectal Abscess (ED) Additional Instructions: A prescription for an antibiotic has been sent to your pharmacy. This antibiotic is amoxicillin / clavulanate (also known as Augmentin). Please take this prescription 2 times a day, please take a dose this evening as your 1st dose. For pain you may use acetaminophen ( Tylenol). You may take 2 extra-strength acetaminophen up to 3 times per day. I have also sent a prescription for ibuprofen that you may use as needed for pain. In addition there is a prescription for oxycodone which you may use as well. No driving on oxycodone. Please contact Dr. Anguiano's office on Wednesday. I believe you are supposed to have a follow up appointment with Dr. Anguiano on Wednesday. If at any point you feel significantly worse please return to the emergency department, especially if you develop a fever or feel extremely ill or have severe pain. Return to the hospital by ambulance if necessary. Prescriptions: New amoxicillin-pot clavulanate 875-125 mg tablet 1 tab PO BID Qty: 14 0RF oxycodone 5 mg tablet 5 mg PO Q6H PRN (Reason: pain) Qty: 14 0RF Rx Instructions: Partial Fill upon patient request. polyethylene glycol 3350 [ClearLax] 17 gram/dose powder 17 g PO DAILY Qty: 119 0RF ibuprofen 400 mg tablet 400 mg PO Q6H PRN (Reason: pain) Qty: 14 0RF No Action lamotrigine 150 mg tablet 150 mg PO BEDTIME cetirizine 10 mg tablet 10 mg PO DAILY tizanidine 4 mg tablet 4 mg PO TID clonazepam 0.5 mg tablet 0.5 mg PO BID PRN (Reason: Anxiety) clonidine HCl 0.3 mg tablet 0.3 mg PO BEDTIME tramadol 50 mg tablet 50 mg PO Q12H PRN (Reason: pain) spironolactone 25 mg tablet 25 mg PO DAILY doxepin 100 mg capsule 100 mg PO BEDTIME pantoprazole 40 mg tablet,delayed release (DR/EC) 40 mg PO BID@0630,1630 montelukast 10 mg tablet 10 mg PO DAILY Jardiance 25 mg tablet 25 mg PO DAILY Ozempic 0.25 mg or 0.5 mg (2 mg/3 mL) pen injector 0.5 mg subcut TU sucralfate 1 gram tablet 1 g PO QID PRN (Reason: abdominal pain) pregabalin 150 mg capsule 150 mg PO DAILY pregabalin 150 mg capsule 300 mg PO BEDTIME Interventions: ED Discharge Assessment Last Done: 09/29/24 16:46 Discharge Date/Time: 09/29/24 16:47 Print Language: French
[2024-09-28 20:02] LABS: MANUAL DIFF FLAG NO
[2024-09-28 20:03] LABS: Basophils Absolute Auto 0.1 X10*3/uL (0.0-0.2); Basophils Percent Auto 0.3 % (0-2); Eosinophils Absolute Auto 0.1 X10*3/uL (0.0-0.4); Eosinophils Percent Auto 0.4 % (0-4); Hemoglobin 15.3 g/dl (12.0-16.0); Imm Gran Pct Auto 0.5 % (0.0-0.4); Lymphocytes Absolute Auto 2.4 X10*3/uL (1.2-4.9); Lymphocytes Percent Auto 12.8 % (20-40); Mean Corpuscular HGB Conc 32.6 g/dl (31.0-35.0); Mean Corpuscular Hemoglobin 29.1 pg (27.0-33.0); Mean Corpuscular Volume 89.4 fL (80.0-98.0); Mean Platelet Volume 9.4 fL (9.4-12.3); Monocytes Percent Auto 5.2 % (2-11); Neutrophils Absolute Auto 15.4 x10*3/uL (2.0-8.3); Neutrophils Percent Auto 80.8 % (45-73); Platelet Count 381 X10*3/uL (160-400); Red Blood Count 5.26 X10*6/uL (4.20-5.50); Red Cell Distribution Width 13.2 % (11.0-16.0)
[2024-09-28 20:10] LABS: Prothrombin Time 11.7 SEC (10.9-12.4)
[2024-09-28 20:10] LABS: Appearance Urine Clear; Color Urine Yellow; Glucose Urine UA >=1000 mg/dL (Negative); Leukocyte Esterase Urine Negative (Negative); Nitrite Urine Negative (Negative); PH 5.5 (5.0-9.0); Specific Gravity - Urine >= 1.030 (1.005-1.025); UMIC TRIGGER UACC YES; Urine Blood Trace (Negative); Urine Ketones >=160 mg/dL (Negative); Urine Protein Negative (Neg-Trace)
[2024-09-28 20:11] LABS: UPreg QC Valid YES; Urine Pregnancy NEGATIVE (NEGATIVE)
[2024-09-28 20:12] LABS: Bacteria Urine None Seen (None Seen); RBC Urine 0-2 /HPF (0-2); UACC Culture Trigger YES
[2024-09-28 20:13] LABS: Partial Thromboplastin Time 34.6 SEC (26.0-36.8)
[2024-09-28 20:24] LABS: Alanine Aminotransferase 34 U/L (0-31); Albumin Level 4.3 g/dL (3.5-5.0); Alkaline Phosphatase 139 U/L (39-117); Anion Gap 27 (12-20); Aspartate Amino Transferase 19 U/L (5-31); Bilirubin Total 0.5 mg/dL (0.0-1.0); Blood Urea Nitrogen 11 mg/dL (9-16); Calcium 9.9 mg/dL (8.4-10.2); Carbon Dioxide 15 mmol/L (22-29); Chloride 100 mmol/L (96-108); Creatinine Clr Calc Pharmacy 61.9; Estimated Glomerular Filt Rate 59; Glucose Random 216 mg/dL (60-115); Potassium 4.5 mmol/L (3.3-5.1); Sodium 137 mmol/L (135-145); Total Protein 9.1 g/dL (6.5-8.0)
[2024-09-28 20:29] LABS: HCG Quantitative 8 mIU/mL; Troponin-I High Sensitivity < 2.7 ng/L (<3.5-17.0)
[2024-09-28 20:44] LABS: Beta-Hydroxybutyrate 5.86 mmol/L (0.02-0.27)
[2024-09-28] MEDS: Lactated Ringers 1,000 ML 999 ML IV ×2 (23:39→23:40)
[2024-09-28] MEDS: ondansetron HCL 4 MG/2 ML VIAL IVPUSH (23:40)
[2024-09-28] MEDS: Morphine Sulfate 4 MG/ML CARTRIDGE IVPUSH (23:40)
[2024-09-28 23:41] VITALS: BP 135/79; PULSE 105; RESP 16; TEMP 37.3; O2SAT 97
[2024-09-29] VITALS (9 sets, daily range): BP systolic 89–154; BP diastolic 48–90; PULSE 85–104; RESP 10–16; TEMP 36.8–37.3; O2SAT 95–99
[2024-09-29] MEDS: iohexoL 350 MG/ML 100 ML INFUS..BTL 85 ML IV
[2024-09-29] MEDS: Insulin Regular, Human 100 UNIT/ML 10 ML VIAL IVPUSH (00:15)
[2024-09-29] MEDS: Dextrose 5 % and Lactated Ring 1,000 ML 100 ML IVCONT (00:26)
--- NOTE | 2024-09-29 00:30 | PC.NURSE ---
Iv placed, lab collected and sent, pt taken to CT scan, medicated per sep.
[2024-09-29] MEDS: Ketorolac Tromethamine 15 MG/ML VIAL IVPUSH (01:03)
[2024-09-29] MEDS: HYDROmorphone HCl 1 MG/ML SYRINGE IVPUSH ×2 (01:03→11:18)
[2024-09-29 01:06] LABS: Glucose, Whole Blood 207 mg/dL (60-115)
--- NOTE | 2024-09-29 01:06 | PC.NURSE ---
medicated per mar.
[2024-09-29 01:51] LABS: Alanine Aminotransferase 30 U/L (0-31); Anion Gap 19 (12-20); Aspartate Amino Transferase 18 U/L (5-31); Bilirubin Total 0.3 mg/dL (0.0-1.0); Blood Urea Nitrogen 9 mg/dL (9-16); Calcium 9.5 mg/dL (8.4-10.2); Carbon Dioxide 18 mmol/L (22-29); Chloride 103 mmol/L (96-108); Creatinine Clr Calc Pharmacy 71.1; Estimated Glomerular Filt Rate > 60; Glucose Random 208 mg/dL (60-115); Sodium 136 mmol/L (135-145); Total Protein 8.4 g/dL (6.5-8.0)
[2024-09-29 02:06] LABS: Glucose, Whole Blood 212 mg/dL (60-115)
[2024-09-29 03:00] LABS: Alkaline Phosphatase 131 U/L (39-117)
[2024-09-29] MEDS: Piperacillin Sodium/Tazobactam 3.375 GM in 0.9 % Sodium Chloride 50 ML IV (03:36)
[2024-09-29] MEDS: Morphine Sulfate 4 MG/ML CARTRIDGE IVPUSH ×2 (03:40→08:28)
--- NOTE | 2024-09-29 03:43 | PC.NURSE ---
pt medicated per mar, lactic & blood cultures collected and sent.
[2024-09-29 04:00] LABS: Lactic Acid 0.9 mmol/L (0.5-2.0)
[2024-09-29] MEDS: Lactated Ringers 1,000 ML 999 ML IV (04:41)
--- NOTE | 2024-09-29 04:42 | PC.NURSE ---
medicated per mar.
--- NOTE | 2024-09-29 05:21 | PC.NURSE ---
pt sleeping at this time.
--- NOTE | 2024-09-29 07:46 | PC.NURSE ---
Dr Anguiano to bedside however while awaiting refinery operator helper cracking unit to determine if pt opted to have abscess drained at bedside or OR, he has to return back to OR and will consult with pt later.
[2024-09-29 08:11] LABS: Glucose, Whole Blood 128 mg/dL (60-115)
[2024-09-29] MEDS: ondansetron HCL 4 MG/2 ML VIAL IVPUSH (08:27)
[2024-09-29] MEDS: oxyCODONE HCl Immed Release 5 MG TABLET 10 MG PO (11:18)
[2024-09-29] MEDS: Lidocaine HCl 1 % 10 ML VIAL 30 ML INFILTRATI (11:20)
--- NOTE | 2024-09-29 11:49 | PC.NURSE ---
Dr Anguiano to bedside for Incision and drainage to perianal abscess. Pt medicated however tearful during procedure. Family with pt at bedside. Engraver [employer]ber present throughout procedure
--- NOTE | 2024-09-29 13:04 | P.CONGS_ITS ---
History of Present Illness Consult details Consult date: 09/29/24 Narrative: Patient was a 41-year-old female who presents here with a variety of issues and complaints including anorectal pain. Workup including CT scan demonstrates a right small perirectal abscess (roughly 2 x 1 cm. Patient was states she has had variety of carbuncles and infections in her groin and axilla in the past. She has never had a perirectal abscess. Chart was reviewed and patient evaluated PMFSH Past Medical History Medical History Asthma Diabetes Hepatitis A Social History Social History Alcohol intake: never Patient Tobacco Use Status: Tobacco use Unknown Use of substances other than those prescribed or required for medical reasons: No Advance Directives: No Advance Directives Information Provided: Yes Do you have a plan to hurt others: No Plan Meds Allergies Allergy/AdvReac Type Severity Reaction Status Date / Time ciprofloxacin [From CIPRO] Allergy Intermediate RASH Verified 09/28/24 19:48 Sulfa (Sulfonamide Allergy Intermediate RASH Verified 09/28/24 19:48 Antibiotics) [SULFA (SULFONAMIDE ANTIBIOTICS)] sulfamethoxazole Allergy Unknown SWELLING Verified 09/28/24 19:48 [From SEPTRA] trimethoprim [From SEPTRA] Allergy Unknown SWELLING Verified 09/28/24 19:48 SEAFOOD Allergy Severe ANAPHYLAXIS Uncoded 09/28/24 19:48 Physical Exam 2 Vital Signs: Vital Signs: Last Vital Signs Temp 98.7 F 09/29/24 05:58 Pulse 87 09/29/24 07:46 Resp 16 09/29/24 07:46 BP 120/70 09/29/24 07:46 Pulse Ox 98 09/29/24 07:46 O2 Del Method Room Air 09/29/24 07:46 BMI result Body Mass Index 23.6 GI: Other: Abdomen is benign. Rectal exam demonstrates a right perirectal abscess. Fluctuant area. Very tender to palpation. Rectal exam was deferred secondary to patient's discomfort. Risks, benefits, and alternatives incision and drainage of perirectal abscess were reviewed with the patient and included but not limited to bleeding, infection, recurrence, numbness, pain, scarring, fistula formation the patient wished to proceed. This was done with an diplomatic interpreter. Patient was appropriately positioned and given IV analgesia. The anorectal area was then prepped and draped and infiltrated 1% lidocaine. The area of fluctuance was initially aspirated were purulence was retrieved. Formal I&D was made with a radial incision. Digitally and clamped drain loculations. Wound was irrigated, secured hemostasis, packed, and dressing applied. Patient tolerated procedure well. Results Labs 09/28/24 19:58 09/29/24 01:21 Labs: Abnormal lab results 09/28/24 09/28/24 09/29/24 Range/Units 19:58 20:02 01:02 WBC 19.0 H (4.8-10.8) X10*3/uL Immature Gran % (Auto) 0.5 H (0.0-0.4) % Neut % (Auto) 80.8 H (45-73) % Lymph % (Auto) 12.8 L (20-40) % Abs Immat Gran (auto) 0.10 H (0.00-0.03) X10*3/uL Absolute Neuts (auto) 15.4 H (2.0-8.3) x10*3/uL Carbon Dioxide 15 L (22-29) mmol/L Anion Gap 27 H (12-20) POC Glucose 207 H (60-115) mg/dL Random Glucose 216 H (60-115) mg/dL ALT 34 H (0-31) U/L Alkaline Phosphatase 139 H (39-117) U/L Total Protein 9.1 H (6.5-8.0) g/dL Beta-Hydroxybutyrate 5.86 H (0.02-0.27) mmol/L Ur Specific [place] >= 1.030 H (1.005-1.025) Urine Glucose (UA) >=1000 H (Negative) mg/dL Urine Blood Trace H (Negative) Urine WBC 6-10 H (0-5) /HPF 09/29/24 09/29/24 09/29/24 Range/Units 01:21 02:00 08:08 WBC (4.8-10.8) X10*3/uL Immature Gran % (Auto) (0.0-0.4) % Neut % (Auto) (45-73) % Lymph % (Auto) (20-40) % Abs Immat Gran (auto) (0.00-0.03) X10*3/uL Absolute Neuts (auto) (2.0-8.3) x10*3/uL Carbon Dioxide 18 L (22-29) mmol/L Anion Gap (12-20) POC Glucose 212 H 128 H (60-115) mg/dL Random Glucose 208 H (60-115) mg/dL ALT (0-31) U/L Alkaline Phosphatase 131 H (39-117) U/L Total Protein 8.4 H (6.5-8.0) g/dL Beta-Hydroxybutyrate (0.02-0.27) mmol/L Ur Specific [place] (1.005-1.025) Urine Glucose (UA) (Negative) mg/dL Urine Blood (Negative) Urine WBC (0-5) /HPF Short CBC 09/28/24 Range/Units 19:58 WBC 19.0 H (4.8-10.8) X10*3/uL Hgb 15.3 (12.0-16.0) g/dl Hct 47.0 (37.0-47.0) % Plt Count 381 D (160-400) X10*3/uL BMP 09/28/24 09/29/24 19:58 01:21 Sodium 137 136 Potassium 4.5 4.0 Chloride 100 103 Carbon Dioxide 15 L 18 L BUN 11 9 Creatinine 1.00 0.87 Calcium 9.9 9.5 Liver Function 09/28/24 09/29/24 Range/Units 19:58 01:21 Total Bilirubin 0.5 0.3 (0.0-1.0) mg/dL AST 19 18 (5-31) U/L ALT 34 H 30 (0-31) U/L Alkaline Phosphatase 139 H 131 H (39-117) U/L Albumin 4.3 4.0 (3.5-5.0) g/dL Urine 09/28/24 Range/Units 20:02 Urine Color Yellow Urine Appearance Clear Urine pH 5.5 (5.0-9.0) Ur Specific [place] >= 1.030 H (1.005-1.025) Urine Protein Negative (Neg-Trace) mg/dL Urine Glucose (UA) >=1000 H (Negative) mg/dL Urine Test NEGATIVE (NEGATIVE) All other labs normal. Assessment and Plan (1) Sandie-rectal abscess: Status: Acute Plan Plan was reviewed with the patient as well as the covering ER doctor. Patient will be given analgesics, antibiotics, we will see me in the office in the next week for local wound care. If arrangements can be made for dressing/packing changes through the ER of the weekend that would work out well in the meantime. All questions answered. Procedures Date of Service Date of Service: 09/29/24
[2024-09-29] MEDS: Acetaminophen 1,000 MG/100 ML PIGGYBACK 400 MG IV (14:13)
[2024-09-29] MEDS: Ketorolac Tromethamine 15 MG/ML VIAL 10 MG IVPUSH (14:13)
[2024-09-29] MEDS: cefTRIAXone sodium 2 GM VIAL IVPUSH (14:17)
[2024-09-29] MEDS: metroNIDAZOLE 500 MG TABLET PO (14:18)
--- NOTE | 2024-09-29 15:36 | PHA.MEDREC ---
Addendum entered by Reinaldo Brown 09/29/24 15:51: reviewed Original Note: Pharmacy Consult ? Medication Reconciliation Pharmacy has completed the medication reconciliation. Spoke with patient utilizing advertising executive and she was able to confirm her medications. She confirmed her psychiatrist stopped the Amitriptyline 50mg tab in the last few weeks. She confirmed she takes her Ozempic once a week on Tuesdays. She stated she has not taken any medications since Wednesday but took the Ozempic on Wednesday.
== END 2024-09-29 16:47 | disposition home or self-care (01) ==
PROVIDERS: Emergency Medicine; Physician Assistant; Physician Assistant Medical; Emergency Provider Emergency Medicine
DX: K61.1 Rectal abscess (principal); R10.9 Unspecified abdominal pain; J45.909 Unspecified asthma, uncomplicated; E11.9 Type 2 diabetes mellitus without complications; B15.9 Hepatitis A without hepatic coma; Z79.899 Other long term (current) drug therapy
CPT/HCPCS: 36415; 46040; 74178; 80053; 81001; 81025; 82010; 82947; 83605; 84484; 84702; 85025; 85610; 85730; 87040; 87086; 87147; 96361; 96365; 96366; 96367; 96375; 96376; 99285; J0131; J0696; J1171; J1885; J2003; J2270; J2405; J2543; J7120; Q9967

== ENCOUNTER → 2024-09-28 22:56 | Outpatient (BNV) | payer OTHER, SELFPAY | PROVIDERS: Emergency Provider Emergency Medicine; Visit Provider Radiology Diagnostic Radiology | DX: K61.0 Anal abscess (principal) | CPT/HCPCS: 74178 ==

== ENCOUNTER → 2024-09-28 23:18 | Outpatient (BNV) | payer OTHER, SELFPAY | PROVIDERS: Emergency Provider Emergency Medicine; Visit Provider Surgery | DX: K61.1 Rectal abscess (principal) | CPT/HCPCS: 99284 ==

== ENCOUNTER 2024-12-09 16:31 | Inpatient (IN) | payer OTHER, SELFPAY ==
--- NOTE | ~2024-12-09 | CT_ITS ---
CLINICAL HISTORY: pain, r o SBO CT abdomen and pelvis with contrast Comparison: CT/SR - CT GI BLEED ABD PEL WO/W IVCON - 09/28/24 23:47 EST Findings: Diffuse esophageal mural thickening, nonspecific. Atelectasis. Ill-defined nodular ground-glass consolidations in the left lower lobe may reflect developing pneumonia or aspiration. Diffuse pancreatic glandular edema, with fluid stranding. No discrete fluid collections or evidence of necrosis. Hepatomegaly with steatosis. Distended gallbladder. Redemonstrated bilateral adrenal gland nodules, left larger than right. This may be further evaluated with biochemical assay and adrenal protocol imaging if indicated. Duodenal small bowel mural thickening likely secondary duodenitis. Large colonic stool burden. No bowel obstruction. Rectum demonstrates mural thickening likely related to degree of underdistention. Prominent inguinal nodes, nonspecific. Resolution in the right perianal abscess. Mildly distended bladder with mural thickening, nonspecific. Osteopenia. Multilevel Schmorl's nodes. Diffuse atheromatous plaque disease throughout the aorta and branch vessels, without aneurysmal dilatation. IMPRESSION: 1. Ill-defined nodular ground-glass consolidations in the left lower lobe may reflect developing pneumonia or aspiration. 2. Findings suggestive of acute interstitial edematous pancreatitis. 3. Secondary duodenitis. This document has been electronically signed by: Cruz Guerrero MD on 12/09/2024 22:03:52
--- NOTE | ~2024-12-09 | US_ITS ---
CLINICAL HISTORY: Pancreatitis US abdomen limited Comparison: CT/SR - CT ABDOMEN PELVIS W IV CON - 12/09/24 21:08 EDT Findings: The visualized pancreas is normal. The liver is normal in size with increase of echogenicity. There is no intrahepatic bile duct dilatation. The common duct is 5.6 mm in diameter. The gallbladder is normal. There is no sonographic [place] sign. IMPRESSION: Hepatic steatosis. Otherwise, unremarkable examination. This document has been electronically signed by: Moses Angel MD on 12/10/2024 17:13:52
[2024-12-09 16:46] VITALS: BP 134/88; PULSE 101; RESP 14; TEMP 36.4; O2SAT 99; BMI 24.2
--- NOTE | 2024-12-09 16:48 | ED.GENADULT ---
HPI - General Adult General Chief complaint: Abdominal Pain Stated complaint: abd pain Time Seen by Provider: 12/09/24 17:44 Source: patient and family Limitations: language barrier History of Present Illness ED Provider: Ninoska Olmstead PA-C HPI narrative: 49-year-old female with a history of diabetes, gastroparesis, peripheral neuropathy, hepatitis a and asthma presents with the abdominal pain x2 days. Pain over mid to right abdomen, unable to describe the nature of her discomfort. The pain radiates to right flank and mid back at times. Discomfort worsened with the eating, which triggers nausea. Associated abdominal distention, nausea/ vomiting. Last bowel movement was yesterday, it was minimal, the patient feels as if she is constipated. Patient is passing minimal flatus from below. Denies fever, dysuria, hematuria or history of kidney stones. Related Data Home Medications ?Medication ?Instructions ?Recorded ?Confirmed cetirizine 10 mg tablet 10 mg PO DAILY allergies 09/29/24 09/29/24 clonazepam 0.5 mg tablet 0.5 mg PO BID PRN Anxiety 09/29/24 09/29/24 clonidine HCl 0.3 mg tablet 0.3 mg PO BEDTIME 09/29/24 09/29/24 doxepin 100 mg capsule 100 mg PO BEDTIME 09/29/24 09/29/24 empagliflozin 25 mg tablet 25 mg PO DAILY diabetes mellitus 09/29/24 09/29/24 (Jardiance) lamotrigine 150 mg tablet 150 mg PO BEDTIME 09/29/24 09/29/24 montelukast 10 mg tablet 10 mg PO DAILY asthma 09/29/24 09/29/24 pantoprazole 40 mg tablet,delayed 40 mg PO BID@0630,1630 09/29/24 09/29/24 release pregabalin 150 mg capsule 150 mg PO DAILY 09/29/24 09/29/24 pregabalin 150 mg capsule 300 mg PO BEDTIME 09/29/24 09/29/24 semaglutide 0.25 mg or 0.5 mg (2 0.5 mg subcut TU 09/29/24 09/29/24 mg/3 mL) subcutaneous pen injector (Ozempic) spironolactone 25 mg tablet 25 mg PO DAILY 09/29/24 09/29/24 sucralfate 1 gram tablet 1 g PO QID PRN abdominal pain 09/29/24 09/29/24 tizanidine 4 mg tablet 4 mg PO TID muscle pain 09/29/24 09/29/24 tramadol 50 mg tablet 50 mg PO Q12H PRN pain 09/29/24 09/29/24 Previous Rx's ?Medication ?Instructions ?Recorded amoxicillin 875 mg-potassium 1 tab PO BID #14 tabs 09/29/24 clavulanate 125 mg tablet ibuprofen 400 mg tablet 400 mg PO Q6H PRN pain #14 tabs 09/29/24 oxycodone 5 mg tablet 5 mg PO Q6H PRN pain #14 tabs 09/29/24 polyethylene glycol 3350 17 17 g PO DAILY #119 grams 09/29/24 gram/dose oral powder (ClearLax) Allergies Allergy/AdvReac Type Severity Reaction Status Date / Time ciprofloxacin [From CIPRO] Allergy Intermediate RASH Verified 12/09/24 16:47 Sulfa (Sulfonamide Allergy Intermediate RASH Verified 12/09/24 16:47 Antibiotics) [SULFA (SULFONAMIDE ANTIBIOTICS)] sulfamethoxazole Allergy Unknown SWELLING Verified 12/09/24 16:47 [From APRRA] trimethoprim [From APRRA] Allergy Unknown SWELLING Verified 12/09/24 16:47 SEAFOOD Allergy Severe ANAPHYLAXIS Uncoded 12/09/24 16:47 Review of Systems Review of Systems: Yes all other systems are reviewed and are negative Constitutional: Constitutional: Denies fatigue and Denies fever(s) Cardiovascular: Cardiovascular: Denies chest pain and Denies dyspnea Respiratory: Respiratory: Denies chest congestion, Denies cough and Denies dyspnea Gastrointestinal: Gastrointestinal: Reports abdominal pain, Reports constipation, Denies diarrhea, Reports nausea and Reports vomiting Genitourinary: Genitourinary: Denies dysuria Endocrine: Endocrine: Denies fatigue [facility] Past Medical History Attestation statement: The following information was validated with the patient. Medical History Asthma Diabetes Hepatitis A Social History Social History Unable to assess alcohol history related to: Unknown Alcohol intake: never Patient Tobacco Use Status: Tobacco use Unknown Smoked in Last 30 Days: No Use of substances other than those prescribed or required for medical reasons: No Advance Directives: No Advance Directives Information Provided: Yes Do you have a plan to hurt others: No Plan Patient : No Physical Exam ED Vital Signs: Vital Signs - 24 hr 12/09/24 16:46 12/09/24 18:02 12/09/24 19:31 Temperature 97.5 F 98.3 F 97.9 F Pulse Rate 101 H 89 84 Respiratory Rate 14 12 15 Blood Pressure 134/88 145/79 H 141/83 H Pulse Oximetry 99 100 98 Oxygen Delivery Method Room Air Room Air Room Air 12/09/24 21:47 Temperature 98.0 F Pulse Rate 82 Respiratory Rate 16 Blood Pressure 139/88 Pulse Oximetry 99 Oxygen Delivery Method Room Air BMI result Body Mass Index 24.2 Const Other: Alert ill-appearing, appears older than stated age Orientation/consciousness: patient oriented x3 HENMT Other: Dry oral mucosa Resp Effort & Inspection: normal respiratory effort Cardio Other: Normal peripheral perfusion GI Other: Abdomen is objectively distended to some degree, overall diffuse tenderness, pain most prominent central upper abdomen, with moderate involuntary guarding, Skin Other: Warm dry no rash Neuro General: patient oriented x3, gait normal, no focal motor deficits and CN's II-XI intact bilaterally Psych Other: Calm cooperative Course Course Course Narrative: RME performed by Felicita Tong PA-C. Patient is a 49 year old assigned female at presenting to the emergency department with abdominal pain and nausea. Patient states that over the last 2 days she has had abdominal pain and nausea. Detailed physical exam and review of systems are deferred to the garbage person. EKG, labs, and swabs ordered. Patient placed back in the waiting room pending room availability and results. Medications Administered Discontinued Medications Generic Name Dose Route Start Last Admin Trade Name Freq PRN Reason Stop Dose Admin Diatrizoate Meglum/Diatrizoate Sod 30 ml 12/09/24 21:09 12/09/24 21:09 Diatrizoate Meglumine, Sodium 30 Ml Solution PO 12/09/24 21:10 30 ml ONCE ONE Administration Hydromorphone HCl 1 mg 12/09/24 23:31 12/09/24 23:46 Hydromorphone Hcl 1 Mg/Ml Syringe IVPUSH 12/09/24 23:32 1 mg ONCE ONE Administration Protocol Sodium Chloride 1,000 mls @ 1,998 mls/hr 12/09/24 17:45 12/09/24 18:25 Ns IV 12/09/24 18:15 Infused .Q31M SHANTE Infusion Iohexol 85 ml 12/09/24 21:32 12/09/24 21:32 Iohexol 350 Mg/Ml 100 Ml Infus..Btl IV 12/09/24 21:33 85 ml ONCE ONE Administration Morphine Sulfate 4 mg 12/09/24 18:09 12/09/24 18:29 Morphine Sulfate 4 Mg/Ml Cartridge IVPUSH 12/09/24 18:10 4 mg ONCE ONE Administration Protocol Morphine Sulfate 4 mg 12/09/24 22:07 12/09/24 22:14 Morphine Sulfate 4 Mg/Ml Cartridge IVPUSH 12/09/24 22:08 4 mg ONCE ONE Administration Protocol Ondansetron HCl 4 mg 12/09/24 17:46 12/09/24 17:54 Ondansetron Hcl 4 Mg/2 Ml Vial IVPUSH 12/09/24 17:47 4 mg ONCE ONE Administration Medical Decision Making Medical Decision Making MDM Narrative: 49-year-old female with a history of diabetes, gastroparesis, peripheral neuropathy, hepatitis a and asthma presents with the abdominal pain x2 days. Pain over mid to right abdomen, unable to describe the nature of her discomfort. The pain radiates to right flank and mid back at times. Discomfort worsened with the eating, which triggers nausea. Associated abdominal distention, nausea/ vomiting. Last bowel movement was yesterday, it was minimal, the patient feels as if she is constipated. Patient is passing minimal flatus from below. Denies fever, dysuria, hematuria or history of kidney stones. Problem: Diabetes, gastroparesis History: Per patient I have considered the following differential diagnoses: Gastroparesis, constipation, fecal impaction, ileus, bowel obstruction, renal colic, biliary colic, cholecystitis , gastritis, pancreatitis, hyperglycemia, HHS, DKA Plan: Patient having obstructive symptoms, concerned for SBO, we will obtain a CT scan with p.o. contrast. We will be giving IV fluid morphine and Zofran. Screening labs already obtained from triage, the patient is hyperglycemic, without a gap, her bicarb is appropriate, I am not concerned for DKA. We will be aggressive with her IV fluid resuscitation. Given upper abdominal discomfort, with postprandial pain and nausea, I am considering underlying biliary versus gastric versus pancreatic etiology as cause for symptoms. We will see what CT scan shows, she may also require an ultrasound of the right upper quadrant. Thought about renal colic given the distribution of pain radiates to the flank, however she is not having any symptoms, no history of kidney stones. UA pending. I have independently reviewed the following tests: Labs: No leukocytosis, not anemic, no electrolyte abnormality, no gap, sugar 500,lipase 217 CT abdomen and pelvis:MPRESSION: 1. Ill-defined nodular ground-glass consolidations in the left lower lobe may reflect developing pneumonia or aspiration. 2. Findings suggestive of acute interstitial edematous pancreatitis. 3. Secondary duodenitis. Lab Data 12/09/24 17:13 12/09/24 17:13 Labs: Lab Results 12/09/24 12/09/24 12/09/24 Range/Units 17:13 17:59 19:30 WBC 9.8 (4.8-10.8) X10*3/uL RBC 4.83 (4.20-5.50) X10*6/uL Hgb 14.3 (12.0-16.0) g/dl Hct 42.4 (37.0-47.0) % MCV 87.8 (80.0-98.0) fL MCH 29.6 (27.0-33.0) pg MCHC 33.7 (31.0-35.0) g/dl RDW 12.7 (11.0-16.0) % Plt Count 295 (160-400) X10*3/uL MPV 9.7 (9.4-12.3) fL Immature Gran % (Auto) 0.5 H (0.0-0.4) % Neut % (Auto) 71.2 (45-73) % Lymph % (Auto) 22.2 (20-40) % [place] % (Auto) 5.0 (2-11) % Eos % (Auto) 0.8 (0-4) % Baso % (Auto) 0.3 (0-2) % Lymph # (Auto) 2.2 (1.2-4.9) X10*3/uL [place] # (Auto) 0.5 (0.1-1.2) X10*3/uL Eos # (Auto) 0.1 (0.0-0.4) X10*3/uL Baso # (Auto) 0.0 (0.0-0.2) X10*3/uL Abs Immat Gran (auto) 0.05 H (0.00-0.03) X10*3/uL Absolute Neuts (auto) 7.0 (2.0-8.3) x10*3/uL Absolute Nucleated RBC 0.000 (0.0-0.012) X10*3/uL Nucleated RBC % (auto) 0.0 (0.0-0.2) /100WBC Sodium 137 (135-145) mmol/L Potassium 3.7 (3.3-5.1) mmol/L Chloride 98 (96-108) mmol/L Carbon Dioxide 24 (22-29) mmol/L Anion Gap 19 (12-20) BUN 10 (9-16) mg/dL Creatinine 1.04 (0.5-1.4) mg/dL Estim Creat Clear Calc 59.5 Estimated GFR 57 POC Glucose 263 H (60-115) mg/dL Random Glucose 500 H* (60-115) mg/dL Calcium 9.9 (8.4-10.2) mg/dL Magnesium 1.9 (1.6-2.6) mg/dL Total Bilirubin 0.3 (0.0-1.0) mg/dL AST 17 (5-31) U/L ALT 32 H (0-31) U/L Alkaline Phosphatase 100 (39-117) U/L Troponin I High Sens < 2.7 (<3.5-17.0) ng/L Total Protein 7.5 (6.5-8.0) g/dL Albumin 4.0 (3.5-5.0) g/dL Lipase 217 H (8-78) U/L Beta HCG, Quant 9 mIU/mL Urine Color Yellow Urine Appearance Clear Urine pH 5.5 (5.0-9.0) Ur Specific [place] >= 1.030 H (1.005-1.025) Urine Protein Negative (Neg-Trace) mg/dL Urine Glucose (UA) >=1000 H (Negative) mg/dL Urine Ketones Negative (Negative) mg/dL Urine Blood Negative (Negative) Urine Nitrite Negative (Negative) Ur Leukocyte Esterase Negative (Negative) Urine RBC 0-2 (0-2) /HPF Urine WBC 0-5 (0-5) /HPF Ur Squamous Epith Cells 0-2 (0-2) /HPF Urine Bacteria None Seen (None Seen) Hyaline Casts 0-2 (0-2) /LPF Influenza Type A (PCR) NEGATIVE (Negative) Influenza Type B (PCR) NEGATIVE (Negative) RSV RNA Qual (PCR) NEGATIVE (Negative) SARS-CoV-2 RNA (RT-PCR) NEGATIVE (Negative) Discharge Plan Discharge Clinical Impression: Pancreatitis, Duodenitis Patient Disposition: Admitted As Inpatient Print Language: Lithuanian
--- NOTE | 2024-12-09 16:49 | ECG_ITS ---
Test Reason : abd pain Blood Pressure : */* mmHG Vent. Rate : 95 BPM Atrial Rate : 95 BPM P-R Int : 164 ms QRS Dur : 90 ms QT Int : 376 ms P-R-T Axes : 46 -10 32 degrees QTcB Int : 472 ms Normal sinus rhythm Normal ECG When compared with ECG of 19-Jan-2024 10:44, No significant change was found Referred By: Feliicta Tong Electronically Signed By: LEANN ODONNELL
--- OUTSIDE RECORDS SUMMARY | 2024-12-09 17:15 | XMS_ITS | Clinical Summary ---
Author Organization [facility] ity Address [address] [place] [address] Care Team Providers Care Captain/Airline Pilot Name Role Phone Unavailable Primary Care Provider Unavailabl e Social History Tobacco Use Types Packs/Day Years Used Date Smoking Tobacco: Never Assessed Comments Unknown Sex and Gender Information Value Date Recorded Sex Assigned at Not on file Legal Sex Female 4:57 PM EST Gender Identity Not on file Sexual Orientation Not on file Plan of Treatment Health Maintenance Due Date Last Done Comments Breast Cancer Screening 1976 DTaP,Tdap,and Td Vaccines (1 - Tdap) 1995 Hepatitis B Vaccines (1 of 3 - 19+ 3-dose series) 1995 Cervical Cancer Screening: P ap Smear 1997 COVID-19 Vaccine (2023-2 5 season) 2024 Influenza Vaccine (Season Ended) 2025 HIB Vaccines Aged Out No longer eligi ble based on patient's age to complete this topic HPV Vaccines Aged Out No longer eligi ble based on patient's age to complete this topic Hepatitis A Vaccines Aged Out No long er eligible based on patient's age to complete this topic IPV Vaccines Aged Out No longer eligi ble based on patient's age to complete this topic MMR Vaccines Aged Out No longer eligi ble based on patient's age to complete this topic Meningococcal ACWY Vaccine Aged Out N o longer eligible based on patient's age to complete this topic Meningococcal B Vaccine Aged Out No l onger eligible based on patient's age to complete this topic Pneumococcal Vaccine: Pediat rics (0 to 5 Years) and At-Risk Patients (6 to 64 Years) Aged Out No longer eligible b ased on patient's age to complete this topic RSV Immunization Patients Un antonio 20 months Aged Out No longer eligible b ased on patient's age to complete this topic Varicella Vaccines Aged Out No longer eligible based on patient's age to complete this topic
[2024-12-09 17:18] LABS: MANUAL DIFF FLAG NO
[2024-12-09 17:22] LABS: Basophils Percent Auto 0.3 % (0-2); Eosinophils Absolute Auto 0.1 X10*3/uL (0.0-0.4); Eosinophils Percent Auto 0.8 % (0-4); Hematocrit 42.4 % (37.0-47.0); Hemoglobin 14.3 g/dl (12.0-16.0); Imm Gran Abs Auto 0.05 X10*3/uL (0.00-0.03); Imm Gran Pct Auto 0.5 % (0.0-0.4); Lymphocytes Absolute Auto 2.2 X10*3/uL (1.2-4.9); Lymphocytes Percent Auto 22.2 % (20-40); Mean Corpuscular HGB Conc 33.7 g/dl (31.0-35.0); Mean Corpuscular Hemoglobin 29.6 pg (27.0-33.0); Mean Corpuscular Volume 87.8 fL (80.0-98.0); Mean Platelet Volume 9.7 fL (9.4-12.3); Monocytes Absolute Auto 0.5 X10*3/uL (0.1-1.2); Neutrophils Percent Auto 71.2 % (45-73); Platelet Count 295 X10*3/uL (160-400); Red Blood Count 4.83 X10*6/uL (4.20-5.50); Red Cell Distribution Width 12.7 % (11.0-16.0); White Blood Count 9.8 X10*3/uL (4.8-10.8)
[2024-12-09 17:36] LABS: Alanine Aminotransferase 32 U/L (0-31); Alkaline Phosphatase 100 U/L (39-117); Anion Gap 19 (12-20); Aspartate Amino Transferase 17 U/L (5-31); Bilirubin Total 0.3 mg/dL (0.0-1.0); Blood Urea Nitrogen 10 mg/dL (9-16); Calcium 9.9 mg/dL (8.4-10.2); Carbon Dioxide 24 mmol/L (22-29); Chloride 98 mmol/L (96-108); Creatinine Clr Calc Pharmacy 59.5; Estimated Glomerular Filt Rate 57; Glucose Random 500 mg/dL (60-115); Magnesium 1.9 mg/dL (1.6-2.6); Potassium 3.7 mmol/L (3.3-5.1); Sodium 137 mmol/L (135-145); Total Protein 7.5 g/dL (6.5-8.0)
[2024-12-09 17:40] LABS: Troponin-I High Sensitivity < 2.7 ng/L (<3.5-17.0)
[2024-12-09] MEDS: 0.9 % Sodium Chloride 1,000 ML 1998 ML IV (17:54)
[2024-12-09] MEDS: ondansetron HCL 4 MG/2 ML VIAL IVPUSH (17:54)
[2024-12-09 17:55] LABS: Influenza A PCR NEGATIVE (Negative); Influenza B PCR NEGATIVE (Negative); Resp Syncy Virus RNA Qual PCR NEGATIVE (Negative); SARS COV2 PCR INHOUSE NEGATIVE (Negative)
[2024-12-09 18:02] VITALS: BP 145/79; PULSE 89; RESP 12; TEMP 36.8; O2SAT 100
[2024-12-09 18:09] LABS: Appearance Urine Clear; Color Urine Yellow; Glucose Urine UA >=1000 mg/dL (Negative); Leukocyte Esterase Urine Negative (Negative); Nitrite Urine Negative (Negative); PH 5.5 (5.0-9.0); Specific Gravity - Urine >= 1.030 (1.005-1.025); UMIC TRIGGER UACC YES; Urine Blood Negative (Negative); Urine Ketones Negative (Negative); Urine Protein Negative (Neg-Trace)
[2024-12-09 18:14] LABS: Bacteria Urine None Seen (None Seen); Hyaline Casts Urine 0-2 /LPF (0-2); RBC Urine 0-2 /HPF (0-2); Squamous Epithelial Cell Urine 0-2 /HPF (0-2); WBC Urine 0-5 /HPF (0-5)
[2024-12-09] MEDS: Morphine Sulfate 4 MG/ML CARTRIDGE IVPUSH ×2 (18:29→22:14)
--- NOTE | 2024-12-09 18:34 | PC.NURSE ---
Pt denies N/V/D; reports 15/10 upper bad pain ; pt also has BG over 500, per lab; no gap noted on labs; IVF's infusing per orders; pt medicated for pain
[2024-12-09 18:38] LABS: HCG Quantitative 9 mIU/mL
[2024-12-09 19:31] VITALS: BP 141/83; PULSE 84; RESP 15; TEMP 36.6; O2SAT 98
[2024-12-09 19:38] LABS: Glucose, Whole Blood 263 mg/dL (60-115)
[2024-12-09] MEDS: Diatrizoate Meglumine, Sodium 30 ML SOLUTION PO (21:09)
[2024-12-09] MEDS: iohexoL 350 MG/ML 100 ML INFUS..BTL 85 ML IV (21:32)
[2024-12-09 21:47] VITALS: BP 139/88; PULSE 82; RESP 16; TEMP 36.7; O2SAT 99
[2024-12-09 22:21] LABS: Lipase 217 U/L (8-78)
[2024-12-09] MEDS: HYDROmorphone HCl 1 MG/ML SYRINGE IVPUSH (23:46)
--- NOTE | 2024-12-09 23:52 | PM.IMHP ---
History of Present Illness Date of Service: 12/09/24 Chief Complaint: abd pain 49-year-old female with a past medical history of gastroparesis, hyperlipidemia, anxiety, depression, diabetes GERD chronic back pain, asthma presented to the hospital with a chief complaint of abdominal pain. Patient reports for the past 2 days she has been abdominal discomfort associated nausea and vomiting. Denies any diarrhea. Denies any fevers. Denies any cough or sputum production. Denies any chest pain or palpitations. Review of all other systems is negative except mentioned above ER course: Per ER team, patient would have diffuse abdominal tenderness; CT scan showed findings concerning for duodenitis. Also noted to have acute interstitial edematous pancreatitis. CT scan also showed ground-glass opacities. Patient does not have any pulmonary symptoms. Patient was given pain medication. [facility] Medical History Asthma Diabetes Hepatitis A Social History Unable to assess alcohol history related to: Unknown Alcohol intake: never Patient Tobacco Use Status: Tobacco use Unknown Smoked in Last 30 Days: No Use of substances other than those prescribed or required for medical reasons: No Advance Directives: No Advance Directives Information Provided: Yes Do you have a plan to hurt others: No Plan Patient : No Meds Allergies Allergy/AdvReac Type Severity Reaction Status Date / Time ciprofloxacin [From CIPRO] Allergy Intermediate RASH Verified 12/09/24 16:47 Sulfa (Sulfonamide Allergy Intermediate RASH Verified 12/09/24 16:47 Antibiotics) [SULFA (SULFONAMIDE ANTIBIOTICS)] sulfamethoxazole Allergy Unknown SWELLING Verified 12/09/24 16:47 [From SEPTRA] trimethoprim [From APRRA] Allergy Unknown SWELLING Verified 12/09/24 16:47 SEAFOOD Allergy Severe ANAPHYLAXIS Uncoded 12/09/24 16:47 Home Medications ?Medication ?Instructions ?Recorded ?Confirmed ?Last Taken ?Type cetirizine 10 mg tablet 10 mg PO DAILY allergies 09/29/24 09/29/24 09/24/24 History clonazepam 0.5 mg tablet 0.5 mg PO BID PRN Anxiety 09/29/24 09/29/24 Unknown History clonidine HCl 0.3 mg tablet 0.3 mg PO BEDTIME 09/29/24 09/29/24 09/24/24 History doxepin 100 mg capsule 100 mg PO BEDTIME 09/29/24 09/29/24 09/24/24 History empagliflozin 25 mg tablet 25 mg PO DAILY diabetes mellitus 09/29/24 09/29/24 09/24/24 History (Jardiance) lamotrigine 150 mg tablet 150 mg PO BEDTIME 09/29/24 09/29/24 09/24/24 History montelukast 10 mg tablet 10 mg PO DAILY asthma 09/29/24 09/29/24 09/24/24 History pantoprazole 40 mg tablet,delayed 40 mg PO BID@0630,1630 09/29/24 09/29/24 Unknown History release pregabalin 150 mg capsule 150 mg PO DAILY 09/29/24 09/29/24 09/24/24 History pregabalin 150 mg capsule 300 mg PO BEDTIME 09/29/24 09/29/24 09/24/24 History semaglutide 0.25 mg or 0.5 mg (2 0.5 mg subcut TU 09/29/24 09/29/24 09/26/24 History mg/3 mL) subcutaneous pen injector (Ozempic) spironolactone 25 mg tablet 25 mg PO DAILY 09/29/24 09/29/24 09/24/24 History sucralfate 1 gram tablet 1 g PO QID PRN abdominal pain 09/29/24 09/29/24 Unknown History tizanidine 4 mg tablet 4 mg PO TID muscle pain 09/29/24 09/29/24 09/24/24 History tramadol 50 mg tablet 50 mg PO Q12H PRN pain 09/29/24 09/29/24 Unknown History Physical Exam Vital Signs and Narrative: Vital Signs: Last Vital Signs Temp 98.0 F 12/09/24 21:47 Pulse 82 12/09/24 21:47 Resp 16 12/09/24 21:47 BP 139/88 12/09/24 21:47 Pulse Ox 99 12/09/24 21:47 O2 Del Method Room Air 12/09/24 21:47 BMI result Body Mass Index 24.2 Gen: Appears be in no acute distress HEENT: NCAT, Moist mucosa. Pulmonary: Vesicular breath sounds, fair air entry CVS: Normal S1-S2 Abdomen: BS+, Soft, mildly tender diffusely, no guarding no rigidity Extremities: Warm well perfused Neuro: Alert and awake. Results Labs 12/09/24 17:13 12/09/24 17:13 Labs: Laboratory Results - last 24 hr 12/09/24 12/09/24 12/09/24 17:13 17:59 19:30 MCV 87.8 MCH 29.6 MCHC 33.7 RDW 12.7 Plt Count 295 MPV 9.7 Immature Gran % (Auto) 0.5 H Neut % (Auto) 71.2 Lymph % (Auto) 22.2 [place] % (Auto) 5.0 Eos % (Auto) 0.8 Baso % (Auto) 0.3 Lymph # (Auto) 2.2 [place] # (Auto) 0.5 Eos # (Auto) 0.1 Baso # (Auto) 0.0 Abs Immat Gran (auto) 0.05 H Absolute Neuts (auto) 7.0 Absolute Nucleated RBC 0.000 Nucleated RBC % (auto) 0.0 Anion Gap 19 Estim Creat Clear Calc 59.5 Estimated GFR 57 POC Glucose 263 H Random Glucose 500 H* Calcium 9.9 Magnesium 1.9 Total Bilirubin 0.3 AST 17 ALT 32 H Alkaline Phosphatase 100 Total Protein 7.5 Albumin 4.0 Lipase 217 H Beta HCG, Quant 9 Urine Color Yellow Urine Appearance Clear Urine pH 5.5 Ur Specific [place] >= 1.030 H Urine Protein Negative Urine Glucose (UA) >=1000 H Urine Ketones Negative Urine Blood Negative Urine Nitrite Negative Ur Leukocyte Esterase Negative Urine RBC 0-2 Urine WBC 0-5 Ur Squamous Epith Cells 0-2 Urine Bacteria None Seen Hyaline Casts 0-2 Influenza Type A (PCR) NEGATIVE Influenza Type B (PCR) NEGATIVE RSV RNA Qual (PCR) NEGATIVE SARS-CoV-2 RNA (RT-PCR) NEGATIVE Assessment and Plan (1) Pancreatitis: Qualifiers: Chronicity: acute Pancreatitis type: unspecified pancreatitis type Acute pancreatitis complication: unspecified Qualified Code(s): K85.90 - Acute pancreatitis without necrosis or infection, unspecified Status: Acute Plan 49-year-old female with a past medical history of gastroparesis, hyperlipidemia, anxiety, depression, diabetes GERD chronic back pain, asthma presented to the hospital with a chief complaint of abdominal pain. Admitted for following Acute edematous pancreatitis: Acute duodenitis: Supportive care Pain control Gentle IV fluids GI consult Diabetes/hyperglycemia: Not in DKA or HHS. Insulin sliding scale. For all other chronic conditions, home medication will be continued once med rec is finished with the pharmacy. DVT prophylaxis: Lovenox Code status: Full code Quality Stroke Does the patient have a stroke diagnosis?: No VTE Prior VTE?: No VTE Risk Level:: Medical - moderate - high VTE Device Contraindication: Treatment Not Indicated VTE Drug Contraindication: N/A - Med Ordered
[2024-12-10] VITALS (7 sets, daily range): BP systolic 119–146; BP diastolic 63–83; PULSE 82–92; RESP 13–18; TEMP 36.4–37.2; O2SAT 95–100; BMI 25.5
[2024-12-10] MEDS: Lactated Ringers 1,000 ML 100 ML IVCONT ×3 (01:03→17:17)
[2024-12-10] MEDS: 0.9 % Sodium Chloride Flush 3 ML SYRINGE IVFLUSH ×2 (01:04→22:08)
[2024-12-10 05:48] LABS: MANUAL DIFF FLAG NO
[2024-12-10 05:53] LABS: Basophils Percent Auto 0.3 % (0-2); Eosinophils Absolute Auto 0.1 X10*3/uL (0.0-0.4); Eosinophils Percent Auto 1.1 % (0-4); Hematocrit 39.4 % (37.0-47.0); Hemoglobin 13.7 g/dl (12.0-16.0); Imm Gran Abs Auto 0.03 X10*3/uL (0.00-0.03); Imm Gran Pct Auto 0.3 % (0.0-0.4); Lymphocytes Absolute Auto 2.9 X10*3/uL (1.2-4.9); Lymphocytes Percent Auto 28.4 % (20-40); Mean Corpuscular HGB Conc 34.8 g/dl (31.0-35.0); Mean Corpuscular Hemoglobin 29.7 pg (27.0-33.0); Mean Corpuscular Volume 85.5 fL (80.0-98.0); Mean Platelet Volume 9.3 fL (9.4-12.3); Monocytes Absolute Auto 0.6 X10*3/uL (0.1-1.2); Monocytes Percent Auto 5.6 % (2-11); Neutrophils Absolute Auto 6.5 x10*3/uL (2.0-8.3); Neutrophils Percent Auto 64.3 % (45-73); Platelet Count 262 X10*3/uL (160-400); Red Blood Count 4.61 X10*6/uL (4.20-5.50); Red Cell Distribution Width 12.6 % (11.0-16.0); White Blood Count 10.1 X10*3/uL (4.8-10.8)
[2024-12-10 06:12] LABS: Alanine Aminotransferase 28 U/L (0-31); Albumin Level 3.6 g/dL (3.5-5.0); Alkaline Phosphatase 89 U/L (39-117); Anion Gap 13 (12-20); Aspartate Amino Transferase 26 U/L (5-31); Bilirubin Total 0.4 mg/dL (0.0-1.0); Blood Urea Nitrogen 6 mg/dL (9-16); Calcium 8.7 mg/dL (8.4-10.2); Carbon Dioxide 28 mmol/L (22-29); Chloride 101 mmol/L (96-108); Estimated Glomerular Filt Rate > 60; Glucose Random 164 mg/dL (60-115); Potassium 3.8 mmol/L (3.3-5.1); Sodium 138 mmol/L (135-145); Total Protein 6.7 g/dL (6.5-8.0)
[2024-12-10] MEDS: HYDROmorphone HCl 1 MG/ML SYRINGE 0.5 MG IVPUSH (06:20)
[2024-12-10 07:05] LABS: Glucose, Whole Blood 144 mg/dL (60-115)
--- NOTE | 2024-12-10 08:22 | P.CNGI_ITS ---
History of Present Illness Data of Consult Service Date: 12/10/24 Requesting physician: Ryne Mcdonald Primary Care Provider: BRUNO Enrique HPI Reason for consult: pancreatitis 49-year-old female with a past medical history of gastroparesis, hyperlipidemia, anxiety, depression, diabetes GERD chronic back pain, asthma who i am seeing for pancreatitis. She presented with severe 10/10 epigastric sharp abdominal pain without radiation, worse with food, no relieving factors. Associated with nausea and non bloody emesis. Denies any diarrhea. Denies any fevers. Denies any cough or sputum production. Denies any chest pain or palpitations. no new meds,and no alcohol use. She takes ozempic but been on for 1 year at least. She has noted intermittent pain with fats and greasy food over the last year, FH of gallstones. Ct imaging with acute interstitial edematous pancreatitis and duodenitis. Review of Systems 2 Review of Systems: Constitutional : No Weight loss, No Fever, No Chills ENT/Mouth : No sore throat, No Rhinorrhea Eyes: No Swelling, No Redness Cardiovascular : No Chest Pain, No SOB, No Edema Respiratory : No Cough, No Sputum, No Wheezing Gastrointestinal : see HPI Genitourinary : NO Dysuria, No Urinary Frequency, No Hematuria, No Urgency Musculoskeletal : no joint pain, No Myalgias, No Joint Swelling Skin : No Skin Lesions, No rash Neuro : No Weakness, No Numbness, No Dizziness, No Headache Psych : No Anxiety/Panic, No Depression Heme/Lymph: No Bruising, No Lymphadenopathy Endocrine : No Polyuria, No Polydipsia All other systems reviewed and are negative. [facility] Past Medical History Medical History Asthma Diabetes Hepatitis A Social History Social History Household Members: Family Housing: Apartment Do you presently have visiting nurse or other home services: No Unable to assess alcohol history related to: Unknown Alcohol intake: never Patient Tobacco Use Status: Tobacco use Unknown Tobacco use type: Cigarette Cigarettes Per Day: 2 Years Smoked: 20 Smoked in Last 30 Days: Yes e-Cigarette/Vaping Use: Currently Using Patient Interested in Nicotine Replacement: No Patient Given Instructions on How to Stop Smoking: No Second Hand Smoke Exposure: No Use of substances other than those prescribed or required for medical reasons: No Currently Displaying Signs/Symptoms of Drug Intoxication Withdrawal: No Any prior treatment program specific to substance use: No Have you been hit, kicked, punched, or otherwise hurt by someone within the past year? If so, by whom?: No Do you feel safe in your current relationship?: No Current Relationship Is there a partner from a previous relationship who is making you feel unsafe now?: No Are you made to feel afraid or neglected: No Advance Directives: No Advance Directives Information Provided: Yes Do you have a plan to hurt others: No Plan Recently lost weight without trying: No How much weight loss: Not applicable Eating poorly because of decreased appetite: No Nutrition screen score: 0 Nutrition Risks: No Nutritional Risk Patient : No : No Poor oral hygiene: No Meds Allergies Allergy/AdvReac Type Severity Reaction Status Date / Time ciprofloxacin [From CIPRO] Allergy Intermediate RASH Verified 12/09/24 16:47 Sulfa (Sulfonamide Allergy Intermediate RASH Verified 12/09/24 16:47 Antibiotics) [SULFA (SULFONAMIDE ANTIBIOTICS)] sulfamethoxazole Allergy Unknown SWELLING Verified 12/09/24 16:47 [From SEPTRA] trimethoprim [From APRRA] Allergy Unknown SWELLING Verified 12/09/24 16:47 SEAFOOD Allergy Severe ANAPHYLAXIS Uncoded 12/09/24 16:47 Active Medications: Current Medications Acetaminophen (Acetaminophen 325 Mg Tablet) 650 mg PO Q6H PRN PRN Reason: Pain, Mild 1-3,fever,headache Calcium Carbonate (Calcium Carbonate 750 Mg Tab.Chew) 750 mg PO Q4H PRN PRN Reason: Heartburn Dextrose (Dextrose 50 % 25 Gm/50 Ml Syringe) 25 gm IVPUSH Q15M PRN; Protocol PRN Reason: per Hypoglycemia Standing Ord. Glucose (Glucose Gel 15 Gm Gel..Gram.) 15 gm PO Q15M PRN; Protocol PRN Reason: per Hypoglycemia Standing Ord. Hydromorphone HCl (Hydromorphone Hcl 1 Mg/Ml Syringe) 0.5 mg IVPUSH Q4H PRN; Protocol PRN Reason: Pain, Severe (Pain Scale 7-10) Last Admin: 12/10/24 06:20 Dose: 0.5 mg Lactated Ringer's (Lr) 1,000 mls @ 100 mls/hr IVCONT .Q10H [facility] Last Admin: 12/10/24 06:21 Dose: 100 mls/hr Insulin Human Lispro (Insulin Lispro 100 Unit/Ml 3 Ml Vial) 0 unit SUBCUT QIDACHS [facility]; Protocol Last Admin: 12/10/24 08:14 Dose: Not Given Magnesium Hydroxide (Milk Of Magnesia 30 Ml Oral.Susp) 30 ml PO DAILY PRN PRN Reason: Constipation Melatonin (Melatonin 3 Mg Tablet) 6 mg PO BEDTIME PRN PRN Reason: Insomnia Pantoprazole Sodium (Pantoprazole Sodium 40 Mg/10 Ml Vial) 40 mg IVPUSH BID@0630,1630 [facility] Sodium Chloride (0.9 % Sodium Chloride Flush 3 Ml Syringe) 3 ml IVFLUSH QSHIFT [facility] Last Admin: 12/10/24 01:04 Dose: 3 ml Home Medications ?Medication ?Instructions ?Recorded ?Confirmed ?Last Taken ?Type cetirizine 10 mg tablet 10 mg PO DAILY PRN allergies 09/29/24 12/10/24 09/24/24 History clonazepam 0.5 mg tablet 0.5 mg PO BID PRN Anxiety 09/29/24 12/10/24 Unknown History clonidine HCl 0.3 mg tablet 0.3 mg PO BEDTIME 09/29/24 12/10/24 09/24/24 History doxepin 100 mg capsule 100 mg PO BEDTIME 09/29/24 12/10/24 09/24/24 History empagliflozin 25 mg tablet 25 mg PO DAILY diabetes mellitus 09/29/24 12/10/24 09/24/24 History (Jardiance) lamotrigine 150 mg tablet 150 mg PO BEDTIME 09/29/24 12/10/24 09/24/24 History montelukast 10 mg tablet 10 mg PO DAILY asthma 09/29/24 12/10/24 09/24/24 History pantoprazole 40 mg tablet,delayed 40 mg PO BID@0630,1630 09/29/24 12/10/24 Unknown History release pregabalin 150 mg capsule 150 mg PO DAILY 09/29/24 12/10/24 09/24/24 History pregabalin 150 mg capsule 300 mg PO BEDTIME 09/29/24 12/10/24 09/24/24 History semaglutide 0.25 mg or 0.5 mg (2 0.5 mg subcut RG 09/29/24 12/10/24 12/03/24 History mg/3 mL) subcutaneous pen injector (Ozempic) spironolactone 25 mg tablet 25 mg PO DAILY 09/29/24 12/10/24 09/24/24 History tramadol 50 mg tablet 50 mg PO Q12H PRN pain 09/29/24 12/10/24 Unknown History albuterol sulfate 90 mcg/actuation 2 puff inhalation Q6H PRN 12/10/24 12/10/24 Unknown History aerosol inhaler (Ventolin HFA) Shortness Of Breath Or Wheezing aspirin 81 mg tablet,delayed 81 mg PO DAILY 12/10/24 12/10/24 Unknown History release diclofenac sodium 75 mg 75 mg PO BID PRN foot pain 12/10/24 12/10/24 Unknown History tablet,delayed release fluticasone 250 mcg-salmeterol 50 1 ea inhalation BID PRN Shortness 12/10/24 12/10/24 Unknown History mcg/dose blistr powdr for Of Breath Or Wheezing inhalation (Advair Diskus) insulin glargine 100 unit/mL (3 50 unit subcut BEDTIME 12/10/24 12/10/24 Unknown History mL) subcutaneous pen (Lantus Solostar U-100 Insulin) Physical Exam 2 Vital Signs: Vital Signs: Last Vital Signs Temp 97.7 F 12/10/24 07:30 Pulse 87 12/10/24 07:30 Resp 18 12/10/24 07:30 BP 143/82 H 12/10/24 07:30 Pulse Ox 98 12/10/24 07:30 O2 Del Method Room Air 12/10/24 07:30 BMI result Body Mass Index 25.5 EXAM: GENERAL: The patient is well developed and nontoxic. VITAL SIGNS:see workflow HEENT: Nonicteric sclerae, PERRLA, EOMI. Oropharynx clear. Moist mucous membranes. Conjunctivae appear well perfused. No thyroid mass. CHEST: Chest wall is nontender. HEART: Regular rate and rhythm without murmurs. LUNGS: Clear to auscultation bilaterally. ABDOMEN: Soft, positive bowel sounds, tender epigastrium, no organomegaly.no flank tenderness SKIN: No rash, no excessive bruising, petechiae, or purpura. NEUROLOGIC: Cranial nerves II-XII intact without motor/sensory deficit. Psych: normal affect Results Labs 12/10/24 05:37 12/10/24 05:37 Labs: Short CBC 12/09/24 12/10/24 Range/Units 17:13 05:37 WBC 9.8 10.1 (4.8-10.8) X10*3/uL Hgb 14.3 13.7 (12.0-16.0) g/dl Hct 42.4 39.4 (37.0-47.0) % Plt Count 295 262 (160-400) X10*3/uL BMP 12/09/24 12/10/24 17:13 05:37 Sodium 137 138 Potassium 3.7 3.8 Chloride 98 101 Carbon Dioxide 24 28 BUN 10 6 L Creatinine 1.04 0.68 Calcium 9.9 8.7 D Liver Function 12/09/24 12/10/24 Range/Units 17:13 05:37 Total Bilirubin 0.3 0.4 (0.0-1.0) mg/dL AST 17 26 (5-31) U/L ALT 32 H 28 (0-31) U/L Alkaline Phosphatase 100 89 (39-117) U/L Albumin 4.0 3.6 (3.5-5.0) g/dL Urine 12/09/24 Range/Units 17:59 Urine Color Yellow Urine Appearance Clear Urine pH 5.5 (5.0-9.0) Ur Specific [place] >= 1.030 H (1.005-1.025) Urine Protein Negative (Neg-Trace) mg/dL Urine Glucose (UA) >=1000 H (Negative) mg/dL Imaging CT scan - abdomen: Attestation: I personally reviewed and interpreted this imaging study as follows: (edematous pancreas, ) Assessment and Plan (1) Pancreatitis: Qualifiers: Acute pancreatitis complication: unspecified Chronicity: acute P ancreatitis type: unspecified pancreatitis type Qualified Code(s): K85.90 - Acute pancreatitis without necrosis or infection, unspecified Status: Acute Plan 1/ Acute pancreatitis, suspect 2/2 to biliary etiology given her chronic intermittent pains with fats. ddx: structural disease, SOD, idiopathic, could still be ozempic PLAN: 1/ fluids and analgesia 2/ PO diet as tolerated 3/ check celiac, trigs, IgG4, XANDER 4/US RUQ, may need MRCP Procedures Date of Service Date of Service: 12/10/24
[2024-12-10] MEDS: Pantoprazole Sodium 40 MG/10 ML VIAL IVPUSH ×2 (08:25→17:02)
[2024-12-10] MEDS: HYDROmorphone HCl 1 MG/ML SYRINGE IVPUSH ×3 (09:43→18:14)
--- NOTE | 2024-12-10 11:04 | PHA.MEDREC ---
Addendum entered by Natasha Larson RPh 12/10/24 11:34: reviewed by [facility]. Original Note: Pharmacy Consult ? Medication Reconciliation Pharmacy has completed the medication reconciliation. Spoke with patient through an web design specialist. She is no longer taking amitriptyline, sucrulfate, tizanidine, miralax, or ibuprofen. She confirmed use of Lantus 50 units at bedtime (LF 06/20/24). She uses both albuterol and advair prn. She administers Ozempic on Wednesday, had last Wednesday.
[2024-12-10 11:10] LABS: Glucose, Whole Blood 136 mg/dL (60-115)
--- NOTE | 2024-12-10 11:39 | P.PNIM_ITS ---
Subjective Subjective Date of Service: 12/10/24 Interval History: Continues to have significant abdominal pain. Pain worsened by any p.o. intake Review of Systems Denies chest pain Denies shortness of breath Admits to abdominal pain nausea without vomiting Denies fever chills Physical Exam 2 Vital Signs: Vital Signs: Last Vital Signs Temp 97.7 F 12/10/24 07:30 Pulse 87 12/10/24 07:30 Resp 18 12/10/24 07:30 BP 143/82 H 12/10/24 07:30 Pulse Ox 98 12/10/24 07:30 O2 Del Method Room Air 12/10/24 07:30 BMI result Body Mass Index 25.5 Const: Other: Awake alert uncomfortable in bed Resp: Other: Clear to auscultation bilaterally no rales rhonchi or wheezes Cardio: Other: No S4; positive S1-S2; no S3 murmurs rubs or gallops GI: Other: Soft diffusely tender nondistended normoactive bowel sounds Extrem: Other: No edema bilaterally Objective Data Active Medications Acetaminophen (Acetaminophen 325 Mg Tablet) 650 mg PO Q6H PRN PRN Reason: Pain, Mild 1-3,fever,headache Calcium Carbonate (Calcium Carbonate 750 Mg Tab.Chew) 750 mg PO Q4H PRN PRN Reason: Heartburn Dextrose (Dextrose 50 % 25 Gm/50 Ml Syringe) 25 gm IVPUSH Q15M PRN; Protocol PRN Reason: per Hypoglycemia Standing Ord. Glucose (Glucose Gel 15 Gm Gel..Gram.) 15 gm PO Q15M PRN; Protocol PRN Reason: per Hypoglycemia Standing Ord. Hydromorphone HCl (Hydromorphone Hcl 1 Mg/Ml Syringe) 1 mg IVPUSH Q3H PRN; Protocol PRN Reason: Pain, Severe (Pain Scale 7-10) Last Admin: 12/10/24 09:43 Dose: 1 mg Documented By: COLE Lactated Ringer's (Lr) 1,000 mls @ 100 mls/hr IVCONT .Q10H [facility] Last Admin: 12/10/24 06:21 Dose: 100 mls/hr Documented By: IRAM Insulin Human Lispro (Insulin Lispro 100 Unit/Ml 3 Ml Vial) 0 unit SUBCUT QIDACHS [facility]; Protocol Last Admin: 12/10/24 08:14 Dose: Not Given Documented By: COLE Non-Admin Reason: No Insulin Coverage Magnesium Hydroxide (Milk Of Magnesia 30 Ml Oral.Susp) 30 ml PO DAILY PRN PRN Reason: Constipation Melatonin (Melatonin 3 Mg Tablet) 6 mg PO BEDTIME PRN PRN Reason: Insomnia Pantoprazole Sodium (Pantoprazole Sodium 40 Mg/10 Ml Vial) 40 mg IVPUSH BID@0630,1630 [facility] Last Admin: 12/10/24 08:25 Dose: 40 mg Documented By: COLE Sodium Chloride (0.9 % Sodium Chloride Flush 3 Ml Syringe) 3 ml IVFLUSH QSHIFT [facility] Last Admin: 12/10/24 08:31 Dose: Not Given Documented By: CLOE Non-Admin Reason: IV Running Labs 12/10/24 05:37 12/10/24 05:37 Labs: Laboratory Results - last 24 hr 12/09/24 12/09/24 12/09/24 17:13 17:59 19:30 MCV 87.8 MCH 29.6 MCHC 33.7 RDW 12.7 Plt Count 295 MPV 9.7 Immature Gran % (Auto) 0.5 H Neut % (Auto) 71.2 Lymph % (Auto) 22.2 [place] % (Auto) 5.0 Eos % (Auto) 0.8 Baso % (Auto) 0.3 Lymph # (Auto) 2.2 [place] # (Auto) 0.5 Eos # (Auto) 0.1 Baso # (Auto) 0.0 Abs Immat Gran (auto) 0.05 H Absolute Neuts (auto) 7.0 Absolute Nucleated RBC 0.000 Nucleated RBC % (auto) 0.0 Anion Gap 19 Estim Creat Clear Calc 59.5 Estimated GFR 57 POC Glucose 263 H Random Glucose 500 H* Calcium 9.9 Magnesium 1.9 Total Bilirubin 0.3 AST 17 ALT 32 H Alkaline Phosphatase 100 Total Protein 7.5 Albumin 4.0 Lipase 217 H Beta HCG, Quant 9 Urine Color Yellow Urine Appearance Clear Urine pH 5.5 Ur Specific [place] >= 1.030 H Urine Protein Negative Urine Glucose (UA) >=1000 H Urine Ketones Negative Urine Blood Negative Urine Nitrite Negative Ur Leukocyte Esterase Negative Urine RBC 0-2 Urine WBC 0-5 Ur Squamous Epith Cells 0-2 Urine Bacteria None Seen Hyaline Casts 0-2 Influenza Type A (PCR) NEGATIVE Influenza Type B (PCR) NEGATIVE RSV RNA Qual (PCR) NEGATIVE SARS-CoV-2 RNA (RT-PCR) NEGATIVE 12/10/24 12/10/24 12/10/24 05:37 07:01 11:05 MCV 85.5 MCH 29.7 MCHC 34.8 RDW 12.6 Plt Count 262 MPV 9.3 L Immature Gran % (Auto) 0.3 Neut % (Auto) 64.3 Lymph % (Auto) 28.4 [place] % (Auto) 5.6 Eos % (Auto) 1.1 Baso % (Auto) 0.3 Lymph # (Auto) 2.9 [place] # (Auto) 0.6 Eos # (Auto) 0.1 Baso # (Auto) 0.0 Abs Immat Gran (auto) 0.03 Absolute Neuts (auto) 6.5 Absolute Nucleated RBC 0.000 Nucleated RBC % (auto) 0.0 Anion Gap 13 Estim Creat Clear Calc 99.0 Estimated GFR > 60 POC Glucose 144 H 136 H Random Glucose 164 H Calcium 8.7 D Magnesium Total Bilirubin 0.4 AST 26 ALT 28 Alkaline Phosphatase 89 Total Protein 6.7 Albumin 3.6 Lipase Beta HCG, Quant Urine Color Urine Appearance Urine pH Ur Specific [place] Urine Protein Urine Glucose (UA) Urine Ketones Urine Blood Urine Nitrite Ur Leukocyte Esterase Urine RBC Urine WBC Ur Squamous Epith Cells Urine Bacteria Hyaline Casts Influenza Type A (PCR) Influenza Type B (PCR) RSV RNA Qual (PCR) SARS-CoV-2 RNA (RT-PCR) Assessment and Plan (1) Pancreatitis: Status: Acute (2) Diabetes: Status: Acute (3) Asthma: Status: Acute Plan 49-year-old female with a past medical history of gastroparesis, hyperlipidemia, anxiety, depression, diabetes GERD chronic back pain, asthma presented to the hospital with a chief complaint of abdominal pain. CT scan consistent with acute pancreatitis Admitted for following 1.Acute pancreatitis -right upper quadrant ultrasound as per GI -labs add per GI -IV fluids/opiates for pain control -clear liquids as tolerated 2.Diabetes Type II -acceptable control off therapies -lispro correctional scale -adjust as indicated; add back orals when appropriate 3.Asthma -stable and well compensated Lovenox Full code Will require ongoing hospitalization for IV fluids and pain control to treat pancreatitis. She also requires specialty consultation. Quality Stroke Does the patient have a stroke diagnosis?: No VTE Prior VTE?: No VTE Risk Level:: Medical - moderate - high VTE Device Contraindication: Treatment Not Indicated VTE Drug Contraindication: N/A - Med Ordered
--- NOTE | 2024-12-10 15:23 | MHC.CM.PN ---
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
[2024-12-10 16:37] LABS: Glucose, Whole Blood 123 mg/dL (60-115)
[2024-12-10 20:03] LABS: Glucose, Whole Blood 134 mg/dL (60-115)
--- NOTE | 2024-12-11 00:29 | PC.NURSE ---
note sent to hospitalist on duty that this patient declined all her PO scheduled medications at HS. She stated unable to tolerate fluid to swallow them. Attempts made times 3, offered one at a time, time between, take it slow, despite, this, pt continued to decline. POC was 134, therefore, no Insulin coverage needed. Will monitor closely. 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 Noted IVF's were discontinued previous shift.
[2024-12-11] MEDS: HYDROmorphone HCl 1 MG/ML SYRINGE IVPUSH ×3 (02:13→12:54)
[2024-12-11] MEDS: ondansetron HCL 4 MG/2 ML VIAL IVPUSH ×2 (03:12→12:54)
--- NOTE | 2024-12-11 03:19 | PC.NURSE ---
0215- Patient with 10/10 Abdominal pain, medicated with Her Dilaudid PRN order with some effect as patient shortly afterwards felt nauseous and vomited a small amount mendieta liquid times 2. She also tried a yellow jello at the time with the pain medicine. Hospitalist alerted and received a one time dose of IVP Zofran which was given at 0310. Will continue to monitor
[2024-12-11 03:48] VITALS: BP 107/57; PULSE 84; RESP 16; TEMP 36.4; O2SAT 95
[2024-12-11] MEDS: Pantoprazole Sodium 40 MG/10 ML VIAL IVPUSH ×2 (05:48→16:56)
[2024-12-11 06:35] LABS: MANUAL DIFF FLAG NO
[2024-12-11 06:51] LABS: Basophils Percent Auto 0.2 % (0-2); Eosinophils Percent Auto 0.2 % (0-4); Hematocrit 46.2 % (37.0-47.0); Hemoglobin 15.2 g/dl (12.0-16.0); Imm Gran Abs Auto 0.07 X10*3/uL (0.00-0.03); Imm Gran Pct Auto 0.6 % (0.0-0.4); Lymphocytes Absolute Auto 1.6 X10*3/uL (1.2-4.9); Lymphocytes Percent Auto 13.1 % (20-40); Mean Corpuscular HGB Conc 32.9 g/dl (31.0-35.0); Mean Corpuscular Hemoglobin 29.3 pg (27.0-33.0); Mean Corpuscular Volume 89.2 fL (80.0-98.0); Mean Platelet Volume 9.7 fL (9.4-12.3); Monocytes Absolute Auto 0.4 X10*3/uL (0.1-1.2); Monocytes Percent Auto 3.3 % (2-11); Neutrophils Absolute Auto 10.3 x10*3/uL (2.0-8.3); Neutrophils Percent Auto 82.6 % (45-73); Platelet Count 330 X10*3/uL (160-400); Red Blood Count 5.18 X10*6/uL (4.20-5.50); Red Cell Distribution Width 12.5 % (11.0-16.0); White Blood Count 12.5 X10*3/uL (4.8-10.8)
[2024-12-11 07:03] LABS: Alanine Aminotransferase 37 U/L (0-31); Albumin Level 4.1 g/dL (3.5-5.0); Alkaline Phosphatase 101 U/L (39-117); Anion Gap 21 (12-20); Aspartate Amino Transferase 29 U/L (5-31); Bilirubin Total 0.4 mg/dL (0.0-1.0); Blood Urea Nitrogen 7 mg/dL (9-16); Calcium 9.4 mg/dL (8.4-10.2); Carbon Dioxide 20 mmol/L (22-29); Chloride 101 mmol/L (96-108); Creatinine Clr Calc Pharmacy 96.1; Estimated Glomerular Filt Rate > 60; Glucose Fasting 117 mg/dL (60-99); Potassium 4.3 mmol/L (3.3-5.1); Sodium 138 mmol/L (135-145); Total Protein 7.8 g/dL (6.5-8.0)
[2024-12-11 07:05] LABS: Glucose, Whole Blood 110 mg/dL (60-115)
[2024-12-11 07:20] VITALS: BP 106/59; PULSE 92; RESP 14; TEMP 36.6; O2SAT 98
[2024-12-11] MEDS: Montelukast Sodium 10 MG TABLET PO (08:23)
[2024-12-11] MEDS: 0.9 % Sodium Chloride Flush 3 ML SYRINGE IVFLUSH ×2 (08:24→16:56)
[2024-12-11] MEDS: Empagliflozin 25 MG TABLET PO (08:24)
[2024-12-11] MEDS: Pregabalin 150 MG CAPSULE PO (08:24)
[2024-12-11 08:30] LABS: Cholesterol 228 mg/dL (<200); HDL Cholesterol 46 mg/dL (>40); LDL Cholesterol Calculated 154 mg/dL (<100); Triglycerides 141 mg/dL (<150)
[2024-12-11 11:11] LABS: Glucose, Whole Blood 114 mg/dL (60-115)
[2024-12-11 11:52] VITALS: BP 111/65; PULSE 92; RESP 16; TEMP 36.1; O2SAT 98
[2024-12-11] MEDS: Lactated Ringers 1,000 ML 100 ML IVCONT (14:49)
[2024-12-11] MEDS: Acetaminophen 325 MG TABLET 650 MG PO ×2 (14:52→20:56)
[2024-12-11] MEDS: oxyCODONE HCl Immed Release 5 MG TABLET PO ×2 (14:53→20:54)
[2024-12-11 15:35] VITALS: BP 112/62; PULSE 90; RESP 14; TEMP 36.2; O2SAT 97
[2024-12-11 16:08] LABS: Glucose, Whole Blood 185 mg/dL (60-115)
[2024-12-11] MEDS: Insulin Lispro 100 UNIT/ML 3 ML VIAL SUBCUT ×2 (16:57→21:11)
--- NOTE | 2024-12-11 17:52 | P.PNIM_ITS ---
Subjective Subjective Date of Service: 12/11/24 Interval History: Continues to experience nausea, no vomiting since yesterday Persistent epigastric pain wrapping around to back Has tolerated a few sips of clear liquids as well as p.o. medication Denies experiencing similar symptoms in the past Pt denies alcohol use No fever, chills Denies chest pain/pressure, palpitations Review of Systems Review of Systems: Yes all other systems are reviewed and are negative Physical Exam 2 Vital Signs: Vital Signs: Last Vital Signs Temp 97.2 F 12/11/24 15:35 Pulse 90 12/11/24 15:35 Resp 14 12/11/24 15:35 BP 112/62 12/11/24 15:35 Pulse Ox 97 12/11/24 15:35 O2 Del Method Room Air 12/11/24 15:35 BMI result Body Mass Index 25.5 General: AOx3. Looks uncomfortable. Resp: CTA bilaterally CVS: S1, S2, RRR GI: +BS, epigarstric and periumbilical tenderness Skin: Warm, dry Neuro: Cranial nerves II-XII grossly intact bilaterally. Motor grossly intact bilaterally Extremities: No edema Psych: Appropriate affect Objective Data Active Medications Acetaminophen (Acetaminophen 325 Mg Tablet) 650 mg PO Q6H [facility] Last Admin: 12/11/24 14:52 Dose: 650 mg Documented By: COLE Calcium Carbonate (Calcium Carbonate 750 Mg Tab.Chew) 750 mg PO Q4H PRN PRN Reason: Heartburn Clonazepam (Clonazepam 0.5 Mg Tablet) 0.5 mg PO BID PRN PRN Reason: Anxiety Clonidine HCl (Clonidine Hcl 0.1 Mg Tablet) 0.3 mg PO BEDTIME SHANTE; Protocol Last Admin: 12/10/24 21:17 Dose: Not Given Documented By: NHI Non-Admin Reason: refused, stated could paris taking, abd pain Dextrose (Dextrose 50 % 25 Gm/50 Ml Syringe) 25 gm IVPUSH Q15M PRN; Protocol PRN Reason: per Hypoglycemia Standing Ord. Doxepin HCl (Doxepin Hcl 25 Mg Capsule) 100 mg PO BEDTIME SHANTE Last Admin: 12/10/24 21:18 Dose: Not Given Documented By: NHI Non-Admin Reason: pt refused, unable to tolerate, treid x3 Empagliflozin (Empagliflozin 25 Mg Tablet) 25 mg PO DAILY SHANTE Last Admin: 12/11/24 08:24 Dose: 25 mg Documented By: COLE Glucose (Glucose Gel 15 Gm Gel..Gram.) 15 gm PO Q15M PRN; Protocol PRN Reason: per Hypoglycemia Standing Ord. Hydromorphone HCl (Hydromorphone Hcl 1 Mg/Ml Syringe) 1 mg IVPUSH Q3H PRN; Protocol PRN Reason: Pain, Severe (Pain Scale 7-10) Last Admin: 12/11/24 12:54 Dose: 1 mg Documented By: COLE Lactated Ringer's (Lr) 1,000 mls @ 100 mls/hr IVCONT .Q10H [facility] Last Admin: 12/11/24 14:49 Dose: 100 mls/hr Documented By: COLE Insulin Human Lispro (Insulin Lispro 100 Unit/Ml 3 Ml Vial) 0 unit SUBCUT QIDACHS [facility]; Protocol Last Admin: 12/11/24 16:57 Dose: 2 unit Documented By: COLE Lamotrigine (Lamotrigine 25 Mg Tablet) 150 mg PO BEDTIME [facility] Last Admin: 12/10/24 21:18 Dose: Not Given Documented By: NHI Non-Admin Reason: refused, stated unable to paris, tried x3 Magnesium Hydroxide (Milk Of Magnesia 30 Ml Oral.Susp) 30 ml PO DAILY PRN PRN Reason: Constipation Melatonin (Melatonin 3 Mg Tablet) 6 mg PO BEDTIME PRN PRN Reason: Insomnia Montelukast Sodium (Montelukast Sodium 10 Mg Tablet) 10 mg PO DAILY [facility] Last Admin: 12/11/24 08:23 Dose: 10 mg Documented By: COLE Ondansetron HCl (Ondansetron Hcl 4 Mg/2 Ml Vial) 4 mg IVPUSH Q8H PRN PRN Reason: Nausea and Vomiting Last Admin: 12/11/24 12:54 Dose: 4 mg Documented By: COLE Oxycodone HCl (Oxycodone Hcl Immed Release 5 Mg Tablet) 5 mg PO Q6H [facility] Last Admin: 12/11/24 14:53 Dose: 5 mg Documented By: COLE Pantoprazole Sodium (Pantoprazole Sodium 40 Mg/10 Ml Vial) 40 mg IVPUSH BID@0630,1630 [facility] Last Admin: 12/11/24 16:56 Dose: 40 mg Documented By: COLE Pregabalin (Pregabalin 150 Mg Capsule) 150 mg PO DAILY [facility] Last Admin: 12/11/24 08:24 Dose: 150 mg Documented By: COLE Pregabalin (Pregabalin 150 Mg Capsule) 300 mg PO BEDTIME [facility] Last Admin: 12/10/24 21:18 Dose: Not Given Documented By: NHI Non-Admin Reason: refused, stated unable to paris, tried x3 Sodium Chloride (0.9 % Sodium Chloride Flush 3 Ml Syringe) 3 ml IVFLUSH QSHIFT [facility] Last Admin: 12/11/24 16:56 Dose: 3 ml Documented By: COLE Labs 12/11/24 05:21 12/11/24 05:21 Labs: Laboratory Results - last 24 hr 12/10/24 12/11/24 12/11/24 19:58 05:21 07:00 MCV 89.2 MCH 29.3 MCHC 32.9 RDW 12.5 Plt Count 330 D MPV 9.7 Immature Gran % (Auto) 0.6 H Neut % (Auto) 82.6 H Lymph % (Auto) 13.1 L [place] % (Auto) 3.3 Eos % (Auto) 0.2 Baso % (Auto) 0.2 Lymph # (Auto) 1.6 [place] # (Auto) 0.4 Eos # (Auto) 0.0 Baso # (Auto) 0.0 Abs Immat Gran (auto) 0.07 H Absolute Neuts (auto) 10.3 H Absolute Nucleated RBC 0.000 Nucleated RBC % (auto) 0.0 Anion Gap 21 H Estim Creat Clear Calc 96.1 Estimated GFR > 60 POC Glucose 134 H 110 Fasting Glucose 117 H Calcium 9.4 D Total Bilirubin 0.4 AST 29 ALT 37 H Alkaline Phosphatase 101 Total Protein 7.8 Albumin 4.1 Triglycerides 141 Cholesterol 228 H LDL Cholesterol, Calc 154 H HDL Cholesterol 46 12/11/24 12/11/24 11:04 16:04 MCV MCH MCHC RDW Plt Count MPV Immature Gran % (Auto) Neut % (Auto) Lymph % (Auto) [place] % (Auto) Eos % (Auto) Baso % (Auto) Lymph # (Auto) [place] # (Auto) Eos # (Auto) Baso # (Auto) Abs Immat Gran (auto) Absolute Neuts (auto) Absolute Nucleated RBC Nucleated RBC % (auto) Anion Gap Estim Creat Clear Calc Estimated GFR POC Glucose 114 185 H Fasting Glucose Calcium Total Bilirubin AST ALT Alkaline Phosphatase Total Protein Albumin Triglycerides Cholesterol LDL Cholesterol, Calc HDL Cholesterol Assessment and Plan (1) Pancreatitis: Status: Acute Plan 49-year-old female with a past medical history of gastroparesis, hyperlipidemia, anxiety, depression, diabetes GERD chronic back pain, asthma presented to the hospital with a chief complaint of abdominal pain. CT scan consistent with acute pancreatitis. Acute pancreatitis Will resume IVF as pt not tolerating significant p.o. intake RUQ U/S negative for choledocholithiasis Will schedule Tylenol and oxycodone for pain management Dilaudid p.r.n. for breakthrough pain Protonix IV b.i.d. GI consult Will check celiac disease, XANDER, IgG 4 Triglycerides WNL, though lipid profile otherwise mildly elevated Clear liquids as tolerated Constipation No reported bowel movement for the past few days MiraLax daily, Colace b.i.d. Diabetes Type II Continue sliding scale insulin Continue Jardiance Hold Lantus for now Asthma Stable and well compensated Lovenox Full code Will require ongoing hospitalization for IV fluids and pain control to treat pancreatitis. She also requires specialty consultation. Quality Stroke Does the patient have a stroke diagnosis?: No VTE Prior VTE?: No VTE Risk Level:: Medical - moderate - high VTE Device Contraindication: Treatment Not Indicated VTE Drug Contraindication: N/A - Med Ordered
[2024-12-11] MEDS: polyethylene glycoL 3350 17 GM POWD.PACK PO (18:40)
[2024-12-11 20:00] VITALS: BP 101/60; PULSE 86; RESP 20; TEMP 36.3; O2SAT 99
[2024-12-11 20:08] LABS: Glucose, Whole Blood 199 mg/dL (60-115)
[2024-12-11] MEDS: Pregabalin 150 MG CAPSULE 300 MG PO (20:53)
[2024-12-11] MEDS: Doxepin HCl 25 MG CAPSULE 100 MG PO (20:56)
[2024-12-11] MEDS: Docusate Sodium 100 MG CAPSULE PO (20:56)
[2024-12-11] MEDS: cloNIDine HCL 0.1 MG TABLET 0.3 MG PO (20:57)
[2024-12-11] MEDS: lamoTRIgine 25 MG TABLET 150 MG PO (21:17)
[2024-12-11 23:25] LABS: Glucose, Whole Blood 208 mg/dL (60-115)
--- NOTE | 2024-12-11 23:36 | PM.EVENT ---
Event Note Date of Service: 12/12/24 Event Note: Rapid response was called as patient passed out while trying to stand up from the bed. Her blood pressure was found to be low. Patient had a orthostatic syncope in the setting of acute pancreatitis. No chest pain or palpitations before passing out. No rhythmic jerking movement of extremities. Does complain of lightheadedness and abdominal discomfort. Will order crystalloid and colloid bolus for resuscitation. Closely monitor blood pressure. Patient has been unable to tolerate p.o. intake for the last 2 days due to acute pancreatitis. Cause of hypotension is decreased p.o. intake and not sepsis. Will repeat labs Time Spent With Patient Time: Total time managing care of this patient today ____ minutes.
[2024-12-11] MEDS: Albumin Human 25 % 100 ML 133.33 ML IV (23:46)
--- NOTE | 2024-12-11 23:48 | ECG_ITS ---
Test Reason : lightheaded Blood Pressure : */* mmHG Vent. Rate : 72 BPM Atrial Rate : 72 BPM P-R Int : 194 ms QRS Dur : 86 ms QT Int : 460 ms P-R-T Axes : 52 22 64 degrees QTcB Int : 503 ms Normal sinus rhythm Possible Inferior infarct , age undetermined Prolonged QT Abnormal ECG When compared with ECG of 09-Dec-2024 17:03, Nonspecific T wave abnormality no longer evident in Inferior leads T wave amplitude has increased in Anterior leads Referred By: Anita Parnell Electronically Signed By: RADHA OLIVIER MD
[2024-12-11] MEDS: Lactated Ringers 1,000 ML 999 ML IV (23:49)
[2024-12-12] VITALS (13 sets, daily range): BP systolic 78–138; BP diastolic 50–77; PULSE 71–88; RESP 16–18; TEMP 36.2–36.6; O2SAT 95–98
[2024-12-12 00:01] LABS: MANUAL DIFF FLAG NO
[2024-12-12 00:03] LABS: Basophils Percent Auto 0.3 % (0-2); Eosinophils Absolute Auto 0.1 X10*3/uL (0.0-0.4); Eosinophils Percent Auto 0.9 % (0-4); Hematocrit 34.3 % (37.0-47.0); Hemoglobin 11.9 g/dl (12.0-16.0); Imm Gran Abs Auto 0.04 X10*3/uL (0.00-0.03); Imm Gran Pct Auto 0.5 % (0.0-0.4); Lymphocytes Absolute Auto 2.2 X10*3/uL (1.2-4.9); Lymphocytes Percent Auto 29.7 % (20-40); Mean Corpuscular HGB Conc 34.7 g/dl (31.0-35.0); Mean Corpuscular Hemoglobin 29.6 pg (27.0-33.0); Mean Corpuscular Volume 85.3 fL (80.0-98.0); Mean Platelet Volume 9.1 fL (9.4-12.3); Monocytes Absolute Auto 0.6 X10*3/uL (0.1-1.2); Monocytes Percent Auto 8.2 % (2-11); Neutrophils Absolute Auto 4.5 x10*3/uL (2.0-8.3); Neutrophils Percent Auto 60.4 % (45-73); Platelet Count 255 X10*3/uL (160-400); Red Blood Count 4.02 X10*6/uL (4.20-5.50); Red Cell Distribution Width 12.6 % (11.0-16.0); White Blood Count 7.4 X10*3/uL (4.8-10.8)
[2024-12-12 00:04] LABS: VBG Base Excess -0.3 mmol/L; VBG HCO3 23 mmol/L (22-26); VBG pCO2 33 mmHg; VBG pH 7.44 (7.32-7.43); VBG pO2 62 mmHg
[2024-12-12 00:04] LABS: Venous Blood Gas Refer to POC result
[2024-12-12 00:25] LABS: Alanine Aminotransferase 21 U/L (0-31); Albumin Level 3.1 g/dL (3.5-5.0); Alkaline Phosphatase 71 U/L (39-117); Anion Gap 15 (12-20); Aspartate Amino Transferase 18 U/L (5-31); Bilirubin Total 0.3 mg/dL (0.0-1.0); Blood Urea Nitrogen 9 mg/dL (9-16); Calcium 8.4 mg/dL (8.4-10.2); Carbon Dioxide 21 mmol/L (22-29); Chloride 105 mmol/L (96-108); Creatinine Clr Calc Pharmacy 84.2; Estimated Glomerular Filt Rate > 60; Glucose Random 183 mg/dL (60-115); Potassium 3.5 mmol/L (3.3-5.1); Sodium 137 mmol/L (135-145); Total Protein 5.8 g/dL (6.5-8.0); Troponin-I High Sensitivity < 2.7 ng/L (<3.5-17.0)
[2024-12-12] MEDS: Albumin Human 25 % 100 ML 133.33 ML IV ×3 (00:39→05:14)
[2024-12-12] MEDS: Lactated Ringers 1,000 ML 999 ML IV (00:45)
--- NOTE | 2024-12-12 01:20 | PC.NURSE ---
Credit Coordinator called Rn to pts room because low bp 55/39, try other arm 67/45 pt is awake talking but very sleepy . and when she tried to stand up became limp RR was called . after she got back to bed she said what happen didnt remember . md at bed side bs was checked =208 orders receved for x2 boluses and x2 albumin labs, ekg done , and pt to transferr to [facility] UNIT on monitor. report given to IDALMIS WEST.
[2024-12-12] MEDS: Lactated Ringers 1,000 ML 200 ML IVCONT ×3 (01:48→23:30)
[2024-12-12] MEDS: Pantoprazole Sodium 40 MG/10 ML VIAL IVPUSH ×2 (04:28→16:34)
--- NOTE | 2024-12-12 04:36 | PC.NURSE ---
patient arrived to unit around 0030 after rapid response, lethargic but arousable. 3rd LR bolus ordered and given per Dr Parnell, pressures remaining stable, lung sounds clear at this time. LR running at 200 ml/hr. plan of care ongoing.
[2024-12-12 06:27] LABS: Anion Gap 16 (12-20); Blood Urea Nitrogen 7 mg/dL (9-16); Calcium 9.1 mg/dL (8.4-10.2); Carbon Dioxide 23 mmol/L (22-29); Chloride 108 mmol/L (96-108); Estimated Glomerular Filt Rate > 60; Glucose Random 123 mg/dL (60-115); Potassium 3.7 mmol/L (3.3-5.1); Sodium 143 mmol/L (135-145)
[2024-12-12 07:38] LABS: Glucose, Whole Blood 111 mg/dL (60-115)
[2024-12-12] MEDS: oxyCODONE HCl Immed Release 5 MG TABLET PO ×3 (07:41→20:21)
[2024-12-12] MEDS: Acetaminophen 325 MG TABLET 650 MG PO ×3 (07:42→20:23)
[2024-12-12] MEDS: 0.9 % Sodium Chloride Flush 3 ML SYRINGE IVFLUSH ×3 (07:42→20:25)
[2024-12-12] MEDS: Docusate Sodium 100 MG CAPSULE PO ×2 (08:55→20:23)
[2024-12-12] MEDS: Montelukast Sodium 10 MG TABLET PO (08:55)
[2024-12-12] MEDS: Empagliflozin 25 MG TABLET PO (08:55)
[2024-12-12] MEDS: Pregabalin 150 MG CAPSULE PO (08:55)
[2024-12-12] MEDS: polyethylene glycoL 3350 17 GM POWD.PACK PO (08:56)
[2024-12-12 11:17] LABS: Glucose, Whole Blood 165 mg/dL (60-115)
[2024-12-12] MEDS: Insulin Lispro 100 UNIT/ML 3 ML VIAL SUBCUT (11:50)
--- NOTE | 2024-12-12 12:39 | PM.DS ---
DS: Providers Provider Date of Service: 12/13/24 Date of admission: 12/09/24 23:50 Date of discharge: 12/13/24 Primary care physician: BRUNO Enrique Consults: 12/10/24 01:34 Consult to Gastroenterology Routine Consulting Provider: Harsh Draper Reason for consultation: pancreatitis; unclear etiology DS: Diagnosis Discharge Diagnosis (1) Pancreatitis: Status: Acute (2) Orthostatic hypotension: Status: Acute DS: Summary Hospital Course Hospital Course: From the history and physical by the admitting hospitalist, Sarmad Hudson, 12/09/24: 49-year-old female with a past medical history of gastroparesis, hyperlipidemia, anxiety, depression, diabetes GERD chronic back pain, asthma presented to the hospital with a chief complaint of abdominal pain. Patient reports for the past 2 days she has been abdominal discomfort associated nausea and vomiting. Denies any diarrhea. Denies any fevers. Denies any cough or sputum production. Denies any chest pain or palpitations. Review of all other systems is negative except mentioned above ER course: Per ER team, patient would have diffuse abdominal tenderness; CT scan showed findings concerning for duodenitis. Also noted to have acute interstitial edematous pancreatitis. CT scan also showed ground-glass opacities. Patient does not have any pulmonary symptoms. Patient was given pain medication. 49yo F with DM2 with hx gastroparesis, HLD, anxiety, depression, GERD, chronic back pain, and asthma presenting with abd pain and found to have acute pancreatitis with secondary duodenitis. She was admitted to the telemetry unit and treated with bowel rest and IV fluid hydration. No history of EtOH intake and US negative for choleliths. Triglycerides negative. GI was consulted; XANDER, IgG and celic panel pending. She was advised to discontinue Ozempic for now and will follow up with GI in 2 weeks as an outpatient. Symptoms gradually improved and diet was advanced with good tolerance. She did have 1 episode of orthostatic syncope and was given more IV fluids with normalization of blood pressures. Time Attestation Discharge Coordination Time (in mins): 35 Quality: Safe Use of Opioids Does Pt have an Active Cancer Diagnosis on the Problem List?: No Quality: Stroke Does the patient have a stroke diagnosis?: No Physical Exam Vital Signs: Vital Signs: Last Vital Signs Temp 97.8 F 12/12/24 11:54 Pulse 86 12/12/24 11:54 Resp 16 12/12/24 11:54 BP 138/76 12/12/24 11:54 Pulse Ox 97 12/12/24 11:54 O2 Del Method Room Air 12/12/24 11:54 BMI result Body Mass Index 25.5 Gen: in no acute distress HEENT: sclera anicteric, moist mucus membranes Neck: supple Lungs: clear to auscultation bilaterally Heart: regular rate and rhythm, no murmurs Abd: soft, non-tender, non-distended Ext: no edema Skin: warm/well-perfused Neuro: alert and oriented x3, no focal findings Psych: appropriate affect DS: Data Data Completed and Pending Completed studies during hospitalization [Text1]: Laboratory Results WBC 8.9 X10*3/uL (4.8-10.8) 12/13/24 05:47 RBC 4.57 X10*6/uL (4.20-5.50) 12/13/24 05:47 Hgb 13.4 g/dl (12.0-16.0) 12/13/24 05:47 Hct 38.9 % (37.0-47.0) 12/13/24 05:47 MCV 85.1 fL (80.0-98.0) 12/13/24 05:47 MCH 29.3 pg (27.0-33.0) 12/13/24 05:47 MCHC 34.4 g/dl (31.0-35.0) 12/13/24 05:47 RDW 12.4 % (11.0-16.0) 12/13/24 05:47 Plt Count 281 X10*3/uL (160-400) 12/13/24 05:47 MPV 9.7 fL (9.4-12.3) 12/13/24 05:47 Immature Gran % (Auto) 0.5 % (0.0-0.4) H 12/11/24 23:57 Neut % (Auto) 60.4 % (45-73) 12/11/24 23:57 Lymph % (Auto) 29.7 % (20-40) 12/11/24 23:57 [place] % (Auto) 8.2 % (2-11) 12/11/24 23:57 Eos % (Auto) 0.9 % (0-4) 12/11/24 23:57 Baso % (Auto) 0.3 % (0-2) 12/11/24 23:57 Lymph # (Auto) 2.2 X10*3/uL (1.2-4.9) 12/11/24 23:57 [place] # (Auto) 0.6 X10*3/uL (0.1-1.2) 12/11/24 23:57 Eos # (Auto) 0.1 X10*3/uL (0.0-0.4) 12/11/24 23:57 Baso # (Auto) 0.0 X10*3/uL (0.0-0.2) 12/11/24 23:57 Abs Immat Gran (auto) 0.04 X10*3/uL (0.00-0.03) H 12/11/24 23:57 Absolute Neuts (auto) 4.5 x10*3/uL (2.0-8.3) 12/11/24 23:57 Absolute Nucleated RBC 0.000 X10*3/uL (0.0-0.012) 12/13/24 05:47 Nucleated RBC % (auto) 0.0 /100WBC (0.0-0.2) 12/13/24 05:47 Hold Purple Top SEE NOTE 12/12/24 05:44 VBG pH 7.44 (7.32-7.43) H 12/12/24 00:02 VBG pCO2 33 mmHg 12/12/24 00:02 VBG pO2 62 mmHg 12/12/24 00:02 VBG HCO3 23 mmol/L (22-26) 12/12/24 00:02 VBG O2 Saturation 92.0 % 12/12/24 00:02 VBG Base Excess -0.3 mmol/L 12/12/24 00:02 Sodium 141 mmol/L (135-145) 12/13/24 05:47 Potassium 4.2 mmol/L (3.3-5.1) 12/13/24 05:47 Chloride 102 mmol/L (96-108) 12/13/24 05:47 Carbon Dioxide 27 mmol/L (22-29) 12/13/24 05:47 Anion Gap 16 (12-20) 12/13/24 05:47 BUN 5 mg/dL (9-16) L 12/13/24 05:47 Creatinine 0.71 mg/dL (0.5-1.4) 12/13/24 05:47 Estim Creat Clear Calc 94.8 12/13/24 05:47 Estimated GFR > 60 12/13/24 05:47 POC Glucose 142 mg/dL (60-115) H 12/13/24 11:17 Random Glucose 118 mg/dL (60-115) H 12/13/24 05:47 Fasting Glucose 117 mg/dL (60-99) H 12/11/24 05:21 Lactic Acid 2.0 mmol/L (0.5-2.0) 12/11/24 23:57 Calcium 9.8 mg/dL (8.4-10.2) D 12/13/24 05:47 Magnesium 1.9 mg/dL (1.6-2.6) 12/09/24 17:13 Total Bilirubin 0.4 mg/dL (0.0-1.0) 12/13/24 05:47 AST 28 U/L (5-31) 12/13/24 05:47 ALT 31 U/L (0-31) 12/13/24 05:47 Alkaline Phosphatase 82 U/L (39-117) 12/13/24 05:47 Troponin I High Sens < 2.7 ng/L (<3.5-17.0) 12/11/24 23:57 Total Protein 7.7 g/dL (6.5-8.0) 12/13/24 05:47 Albumin 4.7 g/dL (3.5-5.0) 12/13/24 05:47 Triglycerides 141 mg/dL (<150) 12/11/24 05:21 Cholesterol 228 mg/dL (<200) H 12/11/24 05:21 LDL Cholesterol, Calc 154 mg/dL (<100) H 12/11/24 05:21 HDL Cholesterol 46 mg/dL (>40) 12/11/24 05:21 Lipase 217 U/L (8-78) H 12/09/24 17:13 Beta HCG, Quant 9 mIU/mL 12/09/24 17:13 Urine Color Yellow 12/09/24 17:59 Urine Appearance Clear 12/09/24 17:59 Urine pH 5.5 (5.0-9.0) 12/09/24 17:59 Ur Specific [place] >= 1.030 (1.005-1.025) H 12/09/24 17:59 Urine Protein Negative mg/dL (Neg-Trace) 12/09/24 17:59 Urine Glucose (UA) >=1000 mg/dL (Negative) H 12/09/24 17:59 Urine Ketones Negative mg/dL (Negative) 12/09/24 17:59 Urine Blood Negative (Negative) 12/09/24 17:59 Urine Nitrite Negative (Negative) 12/09/24 17:59 Ur Leukocyte Esterase Negative (Negative) 12/09/24 17:59 Urine RBC 0-2 /HPF (0-2) 12/09/24 17:59 Urine WBC 0-5 /HPF (0-5) 12/09/24 17:59 Ur Squamous Epith Cells 0-2 /HPF (0-2) 12/09/24 17:59 Urine Bacteria None Seen (None Seen) 12/09/24 17:59 Hyaline Casts 0-2 /LPF (0-2) 12/09/24 17:59 IgG Total 561 mg/dL (600-1640) L 12/12/24 05:44 IgG Subclass 1 312 mg/dL (382-929) L 12/12/24 05:44 IgG Subclass 2 208 mg/dL (241-700) L 12/12/24 05:44 IgG Subclass 3 28 mg/dL (22-178) 12/12/24 05:44 IgG Subclass 4 16.5 mg/dL (4-86) 12/12/24 05:44 Influenza Type A (PCR) NEGATIVE (Negative) 12/09/24 17:13 Influenza Type B (PCR) NEGATIVE (Negative) 12/09/24 17:13 RSV RNA Qual (PCR) NEGATIVE (Negative) 12/09/24 17:13 SARS-CoV-2 RNA (RT-PCR) NEGATIVE (Negative) 12/09/24 17:13 CT A/P 12/09/24 1. Ill-defined nodular ground-glass consolidations in the left lower lobe may reflect developing pneumonia or aspiration. 2. Findings suggestive of acute interstitial edematous pancreatitis. 3. Secondary duodenitis. US abd 12/10/24 Hepatic steatosis. Otherwise, unremarkable examination. Discharge Plan Discharge Anticipated Discharge Date/Time: 12/12/24 12:16 Patient Disposition: Home, Self-Care Discharge Diagnosis: pancreatitis orthostatic hypotension Referrals: Kim Fox MD [Physician] - 2 Weeks Jayashree Quick PA [Primary Care Provider] - 1 Week Discharge Medications: Continued fluticasone propion-salmeterol [Advair Diskus] 250-50 mcg/dose blister with device 1 ea INHALATION BID PRN (Reason: Shortness Of Breath Or Wheezing) aspirin 81 mg tablet,delayed release (DR/EC) 81 mg PO DAILY albuterol sulfate [Ventolin HFA] 90 mcg/actuation HFA aerosol inhaler 2 puff INHALATION Q6H PRN (Reason: Shortness Of Breath Or Wheezing) insulin glargine [Lantus Solostar U-100 Insulin] 100 unit/mL (3 mL) insulin pen 50 unit subcut BEDTIME lamotrigine 150 mg tablet 150 mg PO BEDTIME cetirizine 10 mg tablet 10 mg PO DAILY PRN (Reason: allergies) clonazepam 0.5 mg tablet 0.5 mg PO BID PRN (Reason: Anxiety) clonidine HCl 0.3 mg tablet 0.3 mg PO BEDTIME tramadol 50 mg tablet 50 mg PO Q12H PRN (Reason: pain) spironolactone 25 mg tablet 25 mg PO DAILY doxepin 100 mg capsule 100 mg PO BEDTIME pantoprazole 40 mg tablet,delayed release (DR/EC) 40 mg PO BID@0630,1630 montelukast 10 mg tablet 10 mg PO DAILY Jardiance 25 mg tablet 25 mg PO DAILY pregabalin 150 mg capsule 150 mg PO DAILY pregabalin 150 mg capsule 300 mg PO BEDTIME Discontinued diclofenac sodium 75 mg tablet,delayed release (DR/EC) 75 mg PO BID PRN (Reason: foot pain) Ozempic 0.25 mg or 0.5 mg (2 mg/3 mL) pen injector 0.5 mg subcut RG Discharge Orders: Discharge Order (Routine); Ordered 12/13/24 Ordered By: Aranza Jimenez Diet: low-fat Activity on Discharge: As tolerated Stand Alone Forms: Patient Portal Discharge page Print Language: Barb[place] Care Plan Goals: recovery from pancreatitis Health Concerns: pancreatitis orthostatic hypotension Plan of Treatment: hold Ozempic for now drink plenty of fluids use acetaminophen for mild-moderate pain, tramadol for severe pain follow up with [facility] [place] [facility]-2 weeks Please follow up with your primary care doctor within 1 week. Return to the hospital if you experience recurrent or worsening symptoms. Assessment: See Discharge Summary.
--- NOTE | 2024-12-12 12:41 | HO.PM.IMPN ---
Subjective Subjective Date of Service: 12/12/24 Interval History: overnight pt passed out when trying to get out of bed, found to have orthostatic hypotension now feels well, no abd pain, no N/V, wants to try solids Review of Systems Review of Systems: Yes all other systems are reviewed and are negative Physical Exam Vital Signs: Vital Signs: Last Vital Signs Temp 97.8 F 12/12/24 11:54 Pulse 86 12/12/24 11:54 Resp 16 12/12/24 11:54 BP 138/76 12/12/24 11:54 Pulse Ox 97 12/12/24 11:54 O2 Del Method Room Air 12/12/24 11:54 BMI result Body Mass Index 25.5 Gen: in no acute distress HEENT: sclera anicteric, moist mucus membranes Neck: supple Lungs: clear to auscultation bilaterally Heart: regular rate and rhythm, no murmurs Abd: soft, non-tender, non-distended Ext: no edema Skin: warm/well-perfused Neuro: alert and oriented x3, no focal findings Psych: appropriate affect Objective Data Active Medications Acetaminophen (Acetaminophen 325 Mg Tablet) 650 mg PO Q6H [facility] Last Admin: 12/12/24 07:42 Dose: 650 mg Documented By: ZULAY Calcium Carbonate (Calcium Carbonate 750 Mg Tab.Chew) 750 mg PO Q4H PRN PRN Reason: Heartburn Clonazepam (Clonazepam 0.5 Mg Tablet) 0.5 mg PO BID PRN PRN Reason: Anxiety Dextrose (Dextrose 50 % 25 Gm/50 Ml Syringe) 25 gm IVPUSH Q15M PRN; Protocol PRN Reason: per Hypoglycemia Standing Ord. Docusate Sodium (Docusate Sodium 100 Mg Capsule) 100 mg PO BID [facility] Last Admin: 12/12/24 08:55 Dose: 100 mg Documented By: ZULAY Doxepin HCl (Doxepin Hcl 25 Mg Capsule) 100 mg PO BEDTIME [facility] Last Admin: 12/11/24 20:56 Dose: 100 mg Documented By: IRAM Empagliflozin (Empagliflozin 25 Mg Tablet) 25 mg PO DAILY [facility] Last Admin: 12/12/24 08:55 Dose: 25 mg Documented By: ZULAY Glucose (Glucose Gel 15 Gm Gel..Gram.) 15 gm PO Q15M PRN; Protocol PRN Reason: per Hypoglycemia Standing Ord. Hydromorphone HCl (Hydromorphone Hcl 1 Mg/Ml Syringe) 1 mg IVPUSH Q3H PRN; Protocol PRN Reason: Pain, Severe (Pain Scale 7-10) Last Admin: 12/11/24 12:54 Dose: 1 mg Documented By: CLOE Lactated Ringer's (Lr) 1,000 mls @ 200 mls/hr IVCONT .Q5H [facility] Last Infusion: 12/12/24 10:30 Dose: Infused Documented By: ZULAY Insulin Human Lispro (Insulin Lispro 100 Unit/Ml 3 Ml Vial) 0 unit SUBCUT QIDACHS [facility]; Protocol Last Admin: 12/12/24 11:50 Dose: 2 unit Documented By: ZULAY Lamotrigine (Lamotrigine 25 Mg Tablet) 150 mg PO BEDTIME [facility] Last Admin: 12/11/24 21:17 Dose: 150 mg Documented By: IRAM Magnesium Hydroxide (Milk Of Magnesia 30 Ml Oral.Susp) 30 ml PO DAILY PRN PRN Reason: Constipation Melatonin (Melatonin 3 Mg Tablet) 6 mg PO BEDTIME PRN PRN Reason: Insomnia Montelukast Sodium (Montelukast Sodium 10 Mg Tablet) 10 mg PO DAILY [facility] Last Admin: 12/12/24 08:55 Dose: 10 mg Documented By: ZULAY Ondansetron HCl (Ondansetron Hcl 4 Mg/2 Ml Vial) 4 mg IVPUSH Q8H PRN PRN Reason: Nausea and Vomiting Last Admin: 12/11/24 12:54 Dose: 4 mg Documented By: COLE Oxycodone HCl (Oxycodone Hcl Immed Release 5 Mg Tablet) 5 mg PO Q6H [facility] Last Admin: 12/12/24 07:41 Dose: 5 mg Documented By: ZULAY Pantoprazole Sodium (Pantoprazole Sodium 40 Mg/10 Ml Vial) 40 mg IVPUSH BID@0630,1630 [facility] Last Admin: 12/12/24 04:28 Dose: 40 mg Documented By: JOSE MANUEL Polyethylene Glycol (Polyethylene Glycol 3350 17 Gm Powd.Pack) 17 gm PO DAILY [facility] Last Admin: 12/12/24 08:56 Dose: 17 gm Documented By: ZULAY Pregabalin (Pregabalin 150 Mg Capsule) 150 mg PO DAILY [facility] Last Admin: 12/12/24 08:55 Dose: 150 mg Documented By: ZULAY Pregabalin (Pregabalin 150 Mg Capsule) 300 mg PO BEDTIME [facility] Last Admin: 12/11/24 20:53 Dose: 300 mg Documented By: IRAM Sodium Chloride (0.9 % Sodium Chloride Flush 3 Ml Syringe) 3 ml IVFLUSH QSHIFT [facility] Last Admin: 12/12/24 07:42 Dose: 3 ml Documented By: ZULAY Labs 12/11/24 23:57 12/12/24 05:44 Labs: Laboratory Results - last 24 hr 12/11/24 12/11/24 12/11/24 16:04 19:26 23:22 MCV MCH MCHC RDW Plt Count MPV Immature Gran % (Auto) Neut % (Auto) Lymph % (Auto) [place] % (Auto) Eos % (Auto) Baso % (Auto) Lymph # (Auto) [place] # (Auto) Eos # (Auto) Baso # (Auto) Abs Immat Gran (auto) Absolute Neuts (auto) Absolute Nucleated RBC Nucleated RBC % (auto) Hold Purple Top VBG pH VBG pCO2 VBG pO2 VBG HCO3 VBG O2 Saturation VBG Base Excess Anion Gap Estim Creat Clear Calc Estimated GFR POC Glucose 185 H 199 H 208 H Random Glucose Lactic Acid Calcium Total Bilirubin AST ALT Alkaline Phosphatase Total Protein Albumin 12/11/24 12/12/24 12/12/24 23:57 00:02 05:44 MCV 85.3 MCH 29.6 MCHC 34.7 RDW 12.6 Plt Count 255 MPV 9.1 L Immature Gran % (Auto) 0.5 H Neut % (Auto) 60.4 Lymph % (Auto) 29.7 [place] % (Auto) 8.2 Eos % (Auto) 0.9 Baso % (Auto) 0.3 Lymph # (Auto) 2.2 [place] # (Auto) 0.6 Eos # (Auto) 0.1 Baso # (Auto) 0.0 Abs Immat Gran (auto) 0.04 H Absolute Neuts (auto) 4.5 Absolute Nucleated RBC 0.000 Nucleated RBC % (auto) 0.0 Hold Purple Top SEE NOTE VBG pH 7.44 H VBG pCO2 33 VBG pO2 62 VBG HCO3 23 VBG O2 Saturation 92.0 VBG Base Excess -0.3 Anion Gap 15 16 Estim Creat Clear Calc 84.2 99.0 Estimated GFR > 60 > 60 POC Glucose Random Glucose 183 H 123 H Lactic Acid 2.0 Calcium 8.4 D 9.1 D Total Bilirubin 0.3 AST 18 ALT 21 Alkaline Phosphatase 71 Total Protein 5.8 L Albumin 3.1 L 12/12/24 12/12/24 07:34 11:13 MCV MCH MCHC RDW Plt Count MPV Immature Gran % (Auto) Neut % (Auto) Lymph % (Auto) [place] % (Auto) Eos % (Auto) Baso % (Auto) Lymph # (Auto) [place] # (Auto) Eos # (Auto) Baso # (Auto) Abs Immat Gran (auto) Absolute Neuts (auto) Absolute Nucleated RBC Nucleated RBC % (auto) Hold Purple Top VBG pH VBG pCO2 VBG pO2 VBG HCO3 VBG O2 Saturation VBG Base Excess Anion Gap Estim Creat Clear Calc Estimated GFR POC Glucose 111 165 H Random Glucose Lactic Acid Calcium Total Bilirubin AST ALT Alkaline Phosphatase Total Protein Albumin Assessment and Plan (1) Pancreatitis: Status: Acute Plan d4 for 49yo F with DM2 with hx gastroparesis, HLD, anxiety, depression, GERD, chronic back pain, and asthma presenting with abd pain and found to have acute pancreatitis with secondary duodenitis acute pancreatitis - no EtOH intake, US negative for cholelithiasis, normal TGs - prn APAP + oxycodone - PPI - GI consulted; XANDER, IgG, and celiac panel negative; will need outpt f/u with GI; hold Ozempic for now - d/c IV fluids, advance diet to solids orthostatic hypotension - likely due to above; recheck orthostatics constipation - bowel regimen DM2 - continue correction-dose lispro; empagliflozin chronic pain - pregabalin mood disorder - lamotrigine, doxepin, clonazepam asthma - montelukast VTE ppx - enoxaparin dispo - eventual home Total time managing care of this patient today: 45 minutes. Quality Stroke Does the patient have a stroke diagnosis?: No VTE Prior VTE?: No VTE Risk Level:: Medical - moderate - high VTE Device Contraindication: Treatment Not Indicated VTE Drug Contraindication: N/A - Med Ordered
[2024-12-12] MEDS: Enoxaparin Sodium 40 MG/0.4 ML SYRINGE SUBCUT (14:21)
[2024-12-12 15:27] LABS: Glucose, Whole Blood 143 mg/dL (60-115)
[2024-12-12 20:20] LABS: Glucose, Whole Blood 139 mg/dL (60-115)
[2024-12-12] MEDS: lamoTRIgine 25 MG TABLET 150 MG PO (20:21)
[2024-12-12] MEDS: Pregabalin 150 MG CAPSULE 300 MG PO (20:21)
[2024-12-12] MEDS: Doxepin HCl 25 MG CAPSULE 100 MG PO (20:23)
[2024-12-12] MEDS: Calcium Carbonate 750 MG TAB.CHEW PO (20:29)
[2024-12-13] VITALS (9 sets, daily range): BP systolic 93–159; BP diastolic 62–95; PULSE 82–101; RESP 16–18; TEMP 36.3–36.8; O2SAT 96–98
[2024-12-13] MEDS: Acetaminophen 325 MG TABLET 650 MG PO ×2 (01:43→14:01)
[2024-12-13] MEDS: oxyCODONE HCl Immed Release 5 MG TABLET PO ×2 (01:44→14:01)
[2024-12-13] MEDS: Pantoprazole Sodium 40 MG/10 ML VIAL IVPUSH (06:44)
[2024-12-13] MEDS: Lactated Ringers 1,000 ML 200 ML IVCONT ×2 (06:44→10:41)
[2024-12-13 07:07] LABS: Alanine Aminotransferase 31 U/L (0-31); Albumin Level 4.7 g/dL (3.5-5.0); Alkaline Phosphatase 82 U/L (39-117); Anion Gap 16 (12-20); Aspartate Amino Transferase 28 U/L (5-31); Bilirubin Total 0.4 mg/dL (0.0-1.0); Blood Urea Nitrogen 5 mg/dL (9-16); Calcium 9.8 mg/dL (8.4-10.2); Carbon Dioxide 27 mmol/L (22-29); Chloride 102 mmol/L (96-108); Creatinine Clr Calc Pharmacy 94.8; Estimated Glomerular Filt Rate > 60; Glucose Random 118 mg/dL (60-115); Potassium 4.2 mmol/L (3.3-5.1); Sodium 141 mmol/L (135-145); Total Protein 7.7 g/dL (6.5-8.0)
[2024-12-13 07:09] LABS: Hematocrit 38.9 % (37.0-47.0); Hemoglobin 13.4 g/dl (12.0-16.0); Mean Corpuscular HGB Conc 34.4 g/dl (31.0-35.0); Mean Corpuscular Hemoglobin 29.3 pg (27.0-33.0); Mean Corpuscular Volume 85.1 fL (80.0-98.0); Mean Platelet Volume 9.7 fL (9.4-12.3); Platelet Count 281 X10*3/uL (160-400); Red Blood Count 4.57 X10*6/uL (4.20-5.50); Red Cell Distribution Width 12.4 % (11.0-16.0); White Blood Count 8.9 X10*3/uL (4.8-10.8)
[2024-12-13 07:49] LABS: Glucose, Whole Blood 84 mg/dL (60-115)
[2024-12-13] MEDS: Docusate Sodium 100 MG CAPSULE PO (08:21)
[2024-12-13] MEDS: Pregabalin 150 MG CAPSULE PO (08:21)
[2024-12-13] MEDS: Empagliflozin 25 MG TABLET PO (08:21)
[2024-12-13] MEDS: polyethylene glycoL 3350 17 GM POWD.PACK PO (08:22)
[2024-12-13] MEDS: Montelukast Sodium 10 MG TABLET PO (08:22)
[2024-12-13] MEDS: 0.9 % Sodium Chloride Flush 3 ML SYRINGE IVFLUSH ×2 (08:25→14:03)
[2024-12-13 11:26] LABS: Glucose, Whole Blood 142 mg/dL (60-115)
--- NOTE | 2024-12-13 11:49 | MHC.CM.PN ---
Addendum entered by Mirtha Montelongo 12/13/24 14:35: Patient has tolerated the solid diet. She is medically cleared to discharge. She has arranged for a ride home. Original Note: Per MD rounds patient's diet will advance today. Once she tolerates the diet, she may discharge. DP home no services. She will arrange transportation home.
[2024-12-13 12:18] LABS: Immunoglobulin G Subclass 1 312 mg/dL (382-929); Immunoglobulin G Subclass 2 208 mg/dL (241-700); Immunoglobulin G Subclass 3 28 mg/dL (22-178); Immunoglobulin G Subclass 4 16.5 mg/dL (4-86); Immunoglobulin G Total 561 mg/dL (600-1640)
[2024-12-14 13:24] LABS: Anti Nuclear Antibody Screen POSITIVE (NEGATIVE)
[2024-12-14 13:28] LABS: Anti Nuclear Antibody Titer 1:40 titer
[2024-12-15 22:19] LABS: Immunoglobulin A 327 mg/dL (47-310); Transglutaminase IgA <1.0 U/mL
--- NOTE | 2024-12-26 14:50 | P.CDIM_ITS ---
PROVIDER RESPONSE TEXT: To clarify, the appropriate diagnosis supported by the clinical indicators: Mild intermittent: without acute exac QUERY TEXT: PHYSICIAN'S DOCUMENTATION REQUEST Date of Query: 12/13/2024 09:56 AM EDT Patient Name: Marita Ghosh Admit Date: 12/10/2024 Dear Aranza Jimenez MD, A review of the medical record indicates additional documentation may be needed. Please review below and update the documentation accordingly. The diagnosis of asthma was documented in the record on 12/12/24. Additional clinical indicators from the record include: patient is on Montelukast oral daily Based on the above, please clarify in the Progress Notes further specificity regarding the type and a cuity of the asthma: Mild intermittent Please specify if with or without acute exacerbation or status asthmaticus Mild persistent Please specify if with or without acute exacerbation or status asthmaticus Moderate persistent Please specify if with or without acute exacerbation or status asthmaticus Severe persistent Please specify if with or without acute exacerbation or status asthmaticus Exercise induced Please specify if with or without acute exacerbation or status asthmaticus Chronic obstructive asthma and indicate if with acute lower respiratory infection Please specify if with or without acute exacerbation or status asthmaticus Asthma with underlying COPD and indicate if with acute lower respiratory infection Please specify if with or without acute exacerbation or status asthmaticus Other (explain) Clinically unable to determine (explain) Thank you, Isis Stinson RN Use of terms such as suspected, likely, concern for, or probable (associated with a specific diagnosi s that is being evaluated, monitored, or treated as if it exists) are acceptable and can be coded in the inpatient se tting, when documented at the time of discharge. Please use your independent medical judgment in providing your response. THIS QUERY IS PART OF THE PERMANENT MEDICAL RECORD
== END 2024-12-13 15:54 | disposition home or self-care (01) | DRG 282 ==
LOC: HO.ED 23:45 → HO.EDOVER 12-10 00:02 → HO.S3 12-10 01:11 → HO.IMC 12-11 23:54
PROVIDERS: Hospitalist; Physician Assistant Medical; Student in an Organized Health Care Education/Training Program; Admitting Provider Hospitalist; Emergency Provider Emergency Medicine Emergency Medical Services; PCP Physician Assistant Medical; Visit Provider Family Medicine
DX: K85.80 Other acute pancreatitis without necrosis or infection (principal); K76.0 Fatty (change of) liver, not elsewhere classified; E11.65 Type 2 diabetes mellitus with hyperglycemia; J45.20 Mild intermittent asthma, uncomplicated; I95.1 Orthostatic hypotension; G89.29 Other chronic pain; K29.80 Duodenitis without bleeding; Z20.822 Contact with and (suspected) exposure to COVID-19; Z79.82 Long term (current) use of aspirin; Z79.899 Other long term (current) drug therapy
CPT/HCPCS: 0241U; 36415; 74177; 76705; 80048; 80053; 80061; 81001; 82784; 82803; 82947; 83605; 83690; 83735; 84484; 84702; 85025; 85027; 86038; 86039; 86364; 93005; 99285; J1171; J1650; J2270; J2405; J2470; J7120; P9047; Q9967

== ENCOUNTER → 2024-12-09 16:49 | Outpatient (BNV) | payer OTHER, SELFPAY | PROVIDERS: Admitting Provider Hospitalist; Emergency Provider Emergency Medicine Emergency Medical Services; PCP Physician Assistant Medical; Visit Provider Internal Medicine | DX: R10.9 Unspecified abdominal pain (principal) | CPT/HCPCS: 93010 ==

== ENCOUNTER → 2024-12-09 18:09 | Outpatient (BNV) | payer OTHER, SELFPAY | PROVIDERS: Emergency Provider Emergency Medicine Emergency Medical Services; PCP Physician Assistant Medical; Visit Provider Radiology Diagnostic Radiology | DX: K29.80 Duodenitis without bleeding (principal) | CPT/HCPCS: 74177 ==

== ENCOUNTER 2024-12-09 23:50 | Outpatient (BNV) | payer OTHER, SELFPAY | END 2024-12-10 15:00 | PROVIDERS: Admitting Provider Hospitalist; Emergency Provider Emergency Medicine Emergency Medical Services; PCP Physician Assistant Medical; Visit Provider Nuclear Medicine | DX: K85.90 Acute pancreatitis without necrosis or infection, unspecified (principal) | CPT/HCPCS: 76705 ==

== ENCOUNTER 2024-12-09 23:50 | Outpatient (BNV) | payer OTHER, SELFPAY | END 2024-12-11 23:48 | PROVIDERS: Admitting Provider Hospitalist; Emergency Provider Emergency Medicine Emergency Medical Services; PCP Physician Assistant Medical; Visit Provider Internal Medicine Cardiovascular Disease | DX: R94.31 Abnormal electrocardiogram [ECG] [EKG] (principal); R42 Dizziness and giddiness | CPT/HCPCS: 93010 ==

== ENCOUNTER → 2024-12-09 23:50 | Outpatient (BNV) | payer OTHER, SELFPAY | PROVIDERS: Admitting Provider Hospitalist; Emergency Provider Emergency Medicine Emergency Medical Services; PCP Physician Assistant Medical; Visit Provider Internal Medicine Gastroenterology | DX: K85.90 Acute pancreatitis without necrosis or infection, unspecified (principal) | CPT/HCPCS: 99223 ==

== ENCOUNTER → 2024-12-09 23:50 | Outpatient (BNV) | payer OTHER, SELFPAY | PROVIDERS: Admitting Provider Hospitalist; Emergency Provider Emergency Medicine Emergency Medical Services; PCP Physician Assistant Medical; Visit Provider Hospitalist | DX: K85.90 Acute pancreatitis without necrosis or infection, unspecified (principal); I95.1 Orthostatic hypotension | CPT/HCPCS: 99223; 99232; 99239 ==

== ENCOUNTER 2025-01-24 14:55 | Emergency (ER) | payer OTHER, SELFPAY ==
--- OUTSIDE RECORDS SUMMARY | 2015-11-21 05:57 | XMS_ITS | Continuity of Care Document ---
Author Organization [facility] Address [address] [place] [address] Phone Care Team Providers Care Mandolin Repair Person Name Role Phone Juan Peña DO Unavailable [...] Diagnoses Date Provider Providers Copied on Encounter [facility], [address] [place], [place], [id number], [place] tel:[phone] [facility] No Information 6 Mariana Martinez. [address] [facility], [place], [id number] , [place]. tel: [phone] OFFICE/OUTPA TIENT VISIT, EST [facility], [address] [place], [place], [id number], [place] tel:[phone] [facility] Anxiety disorder, unspecifiedHypertens ionNicotine dependence, unspecified, uncomplicatedType 2 diabetes mellitus with hyperglycemia Mar-0 9-201 6 Mariana Martinez. [address] [place] [address], [place], [id number] , [place]. tel: [phone] OFFICE/OUTPA TIENT VISIT, [facility], [address] [place], [place], [id number], [place] tel:[phone] [facility] Abnormal levels of other serum enzymesAnxiety disorder, unspecifiedNicotine dependence, unspecified, uncomplicatedType 2 diabetes mellitus with hyperglycemiaHyperte nsion Nov-0 5-201 5 Mariana Martinez. [address] [place] [address], [place], [place], [id number] , [place]. tel: [phone] OFFICE/OUTPA TIENT VISIT, [facility], [address] [place], [place], [id number], [place] tel:[phone] [facility] Nicotine dependence, unspecified, uncomplicatedType 2 diabetes mellitus with hyperglycemiaOverwei ght Oct-0 8-201 5 Higgins Jennifer. [address] [place] [address], [place], [address], [place]. tel: [phone] [facility], [address] [place], [place], [id number], [place] tel:[phone] [facility] Abnormal liver enzymes Apr-2 0-201 5 Mariana Martinez. [address] [place] [address], [place], [place], [id number] , [place]. tel: [phone] OFFICE/OUTPA TIENT VISIT, [facility], [address] [place], [place], [id number], [place] tel:[phone] [facility] Anxiety state, unspecifiedCurrent smokerDiabetes mellitus without mention of complication, type II or unspecified type, uncontrolledInsomnia General medical examPTSD - Post-traumatic stress disorder Apr-1 6-201 5 Mariana Martinez. [address] [place] [address], [place], [place], [id number] , [place]. tel: [phone] OFFICE/OUTPA TIENT VISIT, [facility], [address] [place], [place], [id number], [place] tel:[phone] [facility] General medical examDiabetes mellitus without mention of complication, type II or unspecified type, uncontrolledPTSD - Post-traumatic stress disorderAnxiety state, unspecifiedEmphysema Current smokerInsomnia Mar-0 4-201 5 Mariana Martinez. [address] , [place], , [id number] , [place]. tel: [phone] Family History Family Member Type Diagnosis Age At Onset Father Problem (finding) Alive and well Mother Problem (finding) Alive and well Mother Problem (finding) diabetes melli tus in first degree relative Payers Payer name Insurance type Covered constitution party ID Keshav suarezgill(ricciLeonel Lees [place] [id number] Social History Type Description Quantity Date Captured Comments Alcohol Use Details Unknown Caffeine Use Details Unknown Tobacco Use Status Smoking Status No Information Sex Female Sexual Orientation Straight or heterosexual Gender Identity Tpzxpf-ws-Foba (FTM) /Transgender Male/Trans Man Chief Complaint And [...]
--- NOTE | ~2025-01-24 | CT_ITS ---
EXAMINATION: CT HEAD WITHOUT CONTRAST CLINICAL INFORMATION: Fall with head strike. COMPARISON: 01/19/2024. TECHNIQUE: Contiguous axial imaging was performed from the skull base to vertex without intravenous administration of contrast. This CT examination was performed using dose optimization techniques as appropriate, variously including the following: *Automated exposure control *Adjustment of mA and/or kV according to patient size (this includes techniques or standardized protocols for targeted exams where dose is matched to indication/reason for exam; i.e. extremities or head) *Use of iterative reconstruction technique FINDINGS: There is no evidence of intracranial hemorrhage or extra-axial fluid collection. There is no mass effect, or edema. No CT evidence of acute territorial infarct. Ventricles, sulci, and cisterns are normal in size and configuration for patient age. No hydrocephalus. No midline shift. Negative hyperdense MCA sign. Negative insular ribbon sign. No significant white matter abnormality. Normal pituitary. Globes and orbital contents image normally. No extracranial soft tissue abnormalities. The paranasal sinuses, mastoid air cells, and tympanic cavities are normally aerated. No suspicious bony abnormalities. There are no acute fractures evident. CT/CT head/brain wo IV con IMPRESSION: No acute intracranial abnormality. No fracture evident. Electronically signed by: Smooth Cherry MD 01/24/2025 04:42 PM EDT
[2025-01-24 15:44] VITALS: BP 140/86; PULSE 88; RESP 16; TEMP 36.2; O2SAT 97; BMI 24.9
--- NOTE | 2025-01-24 15:44 | ED.GENADULT ---
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 Mode of arrival: ambulatory Limitations: no limitations History of Present Illness ED Provider: HPI narrative: 49-year-old female with prior history of pancreatitis diagnosed in September of this year, presenting with multiple complaints, she has rash over her upper back, anterior chest as well as neck and in the back of her both knees, also has a abdominal pain that feels the same as prior pancreatitis started after she ate a sandwich with ham Did not have any chest pain shortness of breath palpitations prior to syncope, she states that currently she is only taking Jardiance for her diabetes, she is scheduled to see an laborer beam house. Related Data Home Medications ?Medication ?Instructions ?Recorded ?Confirmed cetirizine 10 mg tablet 10 mg PO DAILY PRN allergies 09/29/24 12/10/24 clonazepam 0.5 mg tablet 0.5 mg PO BID PRN Anxiety 09/29/24 12/10/24 clonidine HCl 0.3 mg tablet 0.3 mg PO BEDTIME 09/29/24 12/10/24 doxepin 100 mg capsule 100 mg PO BEDTIME 09/29/24 12/10/24 empagliflozin 25 mg tablet 25 mg PO DAILY diabetes mellitus 09/29/24 12/10/24 (Jardiance) lamotrigine 150 mg tablet 150 mg PO BEDTIME 09/29/24 12/10/24 montelukast 10 mg tablet 10 mg PO DAILY asthma 09/29/24 12/10/24 pantoprazole 40 mg tablet,delayed 40 mg PO BID@0630,1630 09/29/24 12/10/24 release pregabalin 150 mg capsule 150 mg PO DAILY 09/29/24 12/10/24 pregabalin 150 mg capsule 300 mg PO BEDTIME 09/29/24 12/10/24 spironolactone 25 mg tablet 25 mg PO DAILY 09/29/24 12/10/24 tramadol 50 mg tablet 50 mg PO Q12H PRN pain 09/29/24 12/10/24 albuterol sulfate 90 mcg/actuation 2 puff inhalation Q6H PRN 12/10/24 12/10/24 aerosol inhaler (Ventolin HFA) Shortness Of Breath Or Wheezing aspirin 81 mg tablet,delayed 81 mg PO DAILY 12/10/24 12/10/24 release fluticasone 250 mcg-salmeterol 50 1 ea inhalation BID PRN Shortness 12/10/24 12/10/24 mcg/dose blistr powdr for Of Breath Or Wheezing inhalation (Advair Diskus) Previous Rx's ?Medication ?Instructions ?Recorded insulin glargine 100 unit/mL (3 10 unit (0.1 mL) subcut QPM #15 mL 12/13/24 mL) subcutaneous pen (Lantus Solostar U-100 Insulin) betamethasone dipropionate 0.05 % 1 appl topical DAILY PRN rash #60 01/24/25 lotion mL Allergies Allergy/AdvReac Type Severity Reaction Status Date / Time ciprofloxacin (From CIPRO) Allergy Intermediate RASH Verified 01/24/25 15:48 Sulfa (Sulfonamide Allergy Intermediate RASH Verified 01/24/25 15:48 Antibiotics) (SULFA (SULFONAMIDE ANTIBIOTICS)) sulfamethoxazole (From Allergy Unknown SWELLING Verified 01/24/25 15:48 SEPTRA) trimethoprim (From SEPTRA) Allergy Unknown SWELLING Verified 01/24/25 15:48 SEAFOOD Allergy Severe ANAPHYLAXIS Uncoded 12/09/24 16:47 Review of Systems Constitutional: Constitutional: Reports as per [facility] Past Medical History Medical History Asthma Diabetes Hepatitis A Social History Social History Household Members: Family Housing: Apartment Do you presently have visiting nurse or other home services: No Unable to assess alcohol history related to: Unknown Alcohol intake: never Patient Tobacco Use Status: Tobacco use Unknown Tobacco use type: Cigarette Cigarettes Per Day: 2 Years Smoked: 20 e-Cigarette/Vaping Use: Currently Using Second Hand Smoke Exposure: No Use of substances other than those prescribed or required for medical reasons: Unknown Advance Directives: No Advance Directives Information Provided: No Patient : No service: No Physical Exam ED Vital Signs: Vital Signs - 24 hr 01/24/25 15:44 01/24/25 19:01 Temperature 97.1 F 97.8 F Pulse Rate 88 83 Respiratory Rate 16 16 Blood Pressure 140/86 H 113/71 Pulse Oximetry 97 98 Oxygen Delivery Method Room Air Room Air BMI result Body Mass Index 24.9 Const Other: Gen: ?Overall well-appearing patient, no facial trauma no head trauma HEENT: PERRLA, EOMI, MMM, Neck: Supple, no LAD CV: RRR, no obvious murmurs appreciated Resp: ?No wheezing rales rhonchi no stridor moving air well Abd: ?Bowel sounds are present, epigastric tenderness no rebound no rigidity no tenderness in the lower quadrants MSK: FROM, strength 5/5 all extremities Skin: Erythematous patches over her upper back and her she chest and neck with some scaling few spots over in the thighs and the back of her knees Neuro: ?Alert and oriented x3, moving upper and lower extremities symmetrically, no obvious facial asymmetry noted Course Course Course Narrative: This is a rapid medical exam performed by Deep Walden NP: Additional HPI, ROS, PE not included below will be deferred to primary provider. Patient is a 49 year old female presenting with complaint of rash, abdominal pain, nausea, reports syncopal episode last night with LOC, left knee pain due to fall. States was referred to ED for rash because PCP felt was related to her liver. Plan: CT head, labs, EKG Medications Administered Generic Name Dose Route Start Last Admin Trade Name Freq PRN Reason Stop Dose Admin Sodium Chloride 1,000 mls @ 999 mls/hr 01/24/25 19:15 01/24/25 19:20 Ns IV 01/24/25 20:15 999 mls/hr .Q1H1M SHANTE Administration Discontinued Medications Generic Name Dose Route Start Last Admin Trade Name Freq PRN Reason Stop Dose Admin Acetaminophen 975 mg 01/24/25 19:21 01/24/25 19:23 Acetaminophen 325 Mg Tablet PO 01/24/25 19:22 975 mg ONCE ONE Administration Insulin Human Lispro 8 unit 01/24/25 19:13 01/24/25 19:20 Insulin Lispro 100 Unit/Ml 3 Ml Vial SUBCUT 01/24/25 19:14 8 unit ONCE ONE Administration Medical Decision Making Medical Decision Making [facility] Narrative: Patient is presenting with reports of syncope sounds like she had a orthostatic or vasovagal syncope she got up from bed overnight, and passed out, she had CT of the head that was unremarkable, and there is no trauma to the face head or any parts of the extremities, ECG without underlying dysrhythmia, blood work reveals hyperglycemia, without electrolyte derangements, we will give gentle fluids, her lipase did not meet the criteria for pancreatitis is slightly elevated but she also ate a fatty sandwich, I educated her regarding food intake, does not drink alcohol, did not feel that further imaging such as ultrasound for evaluation of cholecystitis or pancreatitis or CAT scan for evaluation of pancreatitis is indicated at this time and I will provide her with ointment for with a appears to be heat eczema, she has a rash over parts of the body that sweat the most Differential Diagnosis Differential Diagnoses: The differential diagnosis associated with the presentation includes Petechiae secondary to thrombocytopenia he, eczema, dehydration, vasovagal syncope, ACS, electrolyte derangements, pancreatitis Admission/Observation Consideration of admission/observation: Escalation of care including admission/observation considered Lab Data MDM Lab Attestation statement: I reviewed the patient's lab results. (Noted hyperglycemia, and slight elevation of lipase, it really has to be at least 3 times the upper normal level for diagnosis of pancreatitis) 01/24/25 16:21 01/24/25 16:21 Labs: Lab Results 01/24/25 01/24/25 Range/Units 16:21 19:06 WBC 11.2 H (4.8-10.8) X10*3/uL RBC 4.86 (4.20-5.50) X10*6/uL Hgb 14.0 (12.0-16.0) g/dl Hct 42.3 (37.0-47.0) % MCV 87.0 (80.0-98.0) fL MCH 28.8 (27.0-33.0) pg MCHC 33.1 (31.0-35.0) g/dl RDW 13.5 (11.0-16.0) % Plt Count 338 (160-400) X10*3/uL MPV 9.7 (9.4-12.3) fL Immature Gran % (Auto) 0.4 (0.0-0.4) % Neut % (Auto) 66.8 (45-73) % Lymph % (Auto) 25.8 (20-40) % Sac % (Auto) 6.1 (2-11) % Eos % (Auto) 0.5 (0-4) % Baso % (Auto) 0.4 (0-2) % Lymph # (Auto) 2.9 (1.2-4.9) X10*3/uL Sac # (Auto) 0.7 (0.1-1.2) X10*3/uL Eos # (Auto) 0.1 (0.0-0.4) X10*3/uL Baso # (Auto) 0.0 (0.0-0.2) X10*3/uL Abs Immat Gran (auto) 0.05 H (0.00-0.03) X10*3/uL Absolute Neuts (auto) 7.5 (2.0-8.3) x10*3/uL Absolute Nucleated RBC 0.000 (0.0-0.012) X10*3/uL Nucleated RBC % (auto) 0.0 (0.0-0.2) /100WBC PT 10.5 L (10.9-12.4) SEC INR 0.9 (0.9-1.1) Sodium 133 L (135-145) mmol/L Potassium 3.4 (3.3-5.1) mmol/L Chloride 95 L (96-108) mmol/L Carbon Dioxide 25 (22-29) mmol/L Anion Gap 16 (12-20) BUN 15 (9-16) mg/dL Creatinine 0.86 (0.5-1.4) mg/dL Estim Creat Clear Calc 71.9 Estimated GFR > 60 POC Glucose 296 H (60-115) mg/dL Random Glucose 423 H* (60-115) mg/dL Calcium 10.9 H D (8.4-10.2) mg/dL Magnesium 2.0 (1.6-2.6) mg/dL Total Bilirubin 0.4 (0.0-1.0) mg/dL AST 47 H (5-31) U/L ALT 98 H (0-31) U/L Alkaline Phosphatase 117 (39-117) U/L Troponin I High Sens < 2.7 (<3.5-17.0) ng/L Total Protein 8.0 (6.5-8.0) g/dL Albumin 4.7 (3.5-5.0) g/dL Lipase 126 H (8-78) U/L Beta HCG, Quant 8 mIU/mL Urine Color Yellow Urine Appearance Clear Urine pH 6.0 (5.0-9.0) Ur Specific [place] <= 1.005 (1.005-1.025) Urine Protein Negative (Neg-Trace) mg/dL Urine Glucose (UA) >=1000 H (Negative) mg/dL Urine Ketones Negative (Negative) mg/dL Urine Blood Negative (Negative) Urine Nitrite Negative (Negative) Ur Leukocyte Esterase Negative (Negative) Urine RBC 0-2 (0-2) /HPF Urine WBC 0-5 (0-5) /HPF Ur Squamous Epith Cells 0-2 (0-2) /HPF Urine Bacteria None Seen (None Seen) Hyaline Casts 0-2 (0-2) /LPF Influenza Type A (PCR) NEGATIVE (Negative) Influenza Type B (PCR) NEGATIVE (Negative) RSV RNA Qual (PCR) NEGATIVE (Negative) SARS-CoV-2 RNA (RT-PCR) NEGATIVE (Negative) Discharge Plan Discharge Clinical Impression: Syncope and collapse, Abdominal pain, Heat rash Patient Disposition: Home, Self-Care Additional Instructions: As discussed you after eats small meals, non fatty food, baked chicken, non fatty fish such as flounder not [place], lean beef, grains such as rice, beans, there is other legumes is okay, fatty foods we will irritate your stomach and can cause pancreatitis, I am providing you with a ointment for your rash, as far as diabetic management a new passing out your EKG has been reassuring, cat scan of the brain unremarkable, please follow up with the PCP to address all your other issues, otherwise come back to the ER if something else is evolving Prescriptions: New betamethasone dipropionate 0.05 % lotion 1 appl topical DAILY PRN (Reason: rash) Qty: 60 0RF Rx Instructions: apply to the affected areas twice daily No Action fluticasone propion-salmeterol [Advair Diskus] 250-50 mcg/dose blister with device 1 ea INHALATION BID PRN (Reason: Shortness Of Breath Or Wheezing) aspirin 81 mg tablet,delayed release (DR/EC) 81 mg PO DAILY albuterol sulfate [Ventolin HFA] 90 mcg/actuation HFA aerosol inhaler 2 puff INHALATION Q6H PRN (Reason: Shortness Of Breath Or Wheezing) insulin glargine [Lantus Solostar U-100 Insulin] 100 unit/mL (3 mL) insulin pen 10 unit subcut QPM Qty: 15 0RF lamotrigine 150 mg tablet 150 mg PO BEDTIME cetirizine 10 mg tablet 10 mg PO DAILY PRN (Reason: allergies) clonazepam 0.5 mg tablet 0.5 mg PO BID PRN (Reason: Anxiety) clonidine HCl 0.3 mg tablet 0.3 mg PO BEDTIME tramadol 50 mg tablet 50 mg PO Q12H PRN (Reason: pain) spironolactone 25 mg tablet 25 mg PO DAILY doxepin 100 mg capsule 100 mg PO BEDTIME pantoprazole 40 mg tablet,delayed release (DR/EC) 40 mg PO BID@0630,1630 montelukast 10 mg tablet 10 mg PO DAILY Jardiance 25 mg tablet 25 mg PO DAILY pregabalin 150 mg capsule 150 mg PO DAILY pregabalin 150 mg capsule 300 mg PO BEDTIME Print Language: [place]
--- NOTE | 2025-01-24 15:47 | ECG_ITS ---
Test Reason : SYNCOPE Blood Pressure : */* mmHG Vent. Rate : 85 BPM Atrial Rate : 85 BPM P-R Int : 174 ms QRS Dur : 86 ms QT Int : 406 ms P-R-T Axes : 52 0 28 degrees QTcB Int : 483 ms Normal sinus rhythm Possible Left atrial enlargement Prolonged QT Abnormal ECG When compared with ECG of 11-Dec-2024 23:48, No significant change was found Referred By: Nilsa Walden Electronically Signed By: LEANN ODONNELL
[2025-01-24 16:27] LABS: MANUAL DIFF FLAG NO
[2025-01-24 16:30] LABS: Basophils Percent Auto 0.4 % (0-2); Eosinophils Absolute Auto 0.1 X10*3/uL (0.0-0.4); Eosinophils Percent Auto 0.5 % (0-4); Hematocrit 42.3 % (37.0-47.0); Imm Gran Abs Auto 0.05 X10*3/uL (0.00-0.03); Imm Gran Pct Auto 0.4 % (0.0-0.4); Lymphocytes Absolute Auto 2.9 X10*3/uL (1.2-4.9); Lymphocytes Percent Auto 25.8 % (20-40); Mean Corpuscular HGB Conc 33.1 g/dl (31.0-35.0); Mean Corpuscular Hemoglobin 28.8 pg (27.0-33.0); Mean Platelet Volume 9.7 fL (9.4-12.3); Monocytes Absolute Auto 0.7 X10*3/uL (0.1-1.2); Monocytes Percent Auto 6.1 % (2-11); Neutrophils Absolute Auto 7.5 x10*3/uL (2.0-8.3); Neutrophils Percent Auto 66.8 % (45-73); Platelet Count 338 X10*3/uL (160-400); Red Blood Count 4.86 X10*6/uL (4.20-5.50); Red Cell Distribution Width 13.5 % (11.0-16.0); White Blood Count 11.2 X10*3/uL (4.8-10.8)
[2025-01-24 16:36] LABS: Appearance Urine Clear; Color Urine Yellow; Glucose Urine UA >=1000 mg/dL (Negative); Leukocyte Esterase Urine Negative (Negative); Nitrite Urine Negative (Negative); Specific Gravity - Urine <= 1.005 (1.005-1.025); UMIC TRIGGER UACC YES; Urine Blood Negative (Negative); Urine Ketones Negative (Negative); Urine Protein Negative (Neg-Trace)
[2025-01-24 16:42] LABS: INTERNATIONAL NORM RATIO 0.9 (0.9-1.1); Prothrombin Time 10.5 SEC (10.9-12.4)
[2025-01-24 16:53] LABS: HCG Quantitative 8 mIU/mL
[2025-01-24 16:57] LABS: Troponin-I High Sensitivity < 2.7 ng/L (<3.5-17.0)
[2025-01-24 16:58] LABS: Bacteria Urine None Seen (None Seen); Hyaline Casts Urine 0-2 /LPF (0-2); RBC Urine 0-2 /HPF (0-2); Squamous Epithelial Cell Urine 0-2 /HPF (0-2); WBC Urine 0-5 /HPF (0-5)
[2025-01-24 16:59] LABS: Alanine Aminotransferase 98 U/L (0-31); Albumin Level 4.7 g/dL (3.5-5.0); Alkaline Phosphatase 117 U/L (39-117); Anion Gap 16 (12-20); Aspartate Amino Transferase 47 U/L (5-31); Bilirubin Total 0.4 mg/dL (0.0-1.0); Blood Urea Nitrogen 15 mg/dL (9-16); Calcium 10.9 mg/dL (8.4-10.2); Carbon Dioxide 25 mmol/L (22-29); Chloride 95 mmol/L (96-108); Creatinine Clr Calc Pharmacy 71.9; Estimated Glomerular Filt Rate > 60; Glucose Random 423 mg/dL (60-115); Lipase 126 U/L (8-78); Potassium 3.4 mmol/L (3.3-5.1); Sodium 133 mmol/L (135-145)
[2025-01-24 17:06] LABS: Influenza A PCR NEGATIVE (Negative); Influenza B PCR NEGATIVE (Negative); Resp Syncy Virus RNA Qual PCR NEGATIVE (Negative); SARS COV2 PCR INHOUSE NEGATIVE (Negative)
--- NOTE | 2025-01-24 17:36 | PC.NURSE ---
triage [employer] SUPER[employer] made aware of pt being called twice with no answer, awaiting call back decision at this time
[2025-01-24 19:01] VITALS: BP 113/71; PULSE 83; RESP 16; TEMP 36.6; O2SAT 98
[2025-01-24 19:09] LABS: Glucose, Whole Blood 296 mg/dL (60-115)
[2025-01-24] MEDS: Insulin Lispro 100 UNIT/ML 3 ML VIAL 8 UNIT SUBCUT (19:20)
[2025-01-24] MEDS: 0.9 % Sodium Chloride 1,000 ML 999 ML IV (19:20)
[2025-01-24] MEDS: Acetaminophen 325 MG TABLET 975 MG PO (19:23)
[2025-01-24 20:30] VITALS: BP 113/71; PULSE 83; RESP 16; TEMP 36.6; O2SAT 98
== END 2025-01-24 20:31 | disposition home or self-care (01) ==
PROVIDERS: Registered Nurse Emergency; Emergency Provider Emergency Medicine
DX: R55 Syncope and collapse (principal); R10.2 Pelvic and perineal pain; L74.0 Miliaria rubra; R51.9 Headache, unspecified; R94.31 Abnormal electrocardiogram [ECG] [EKG]; R11.0 Nausea; Z03.818 Encounter for observation for suspected exposure to other biological agents ruled out; Z79.899 Other long term (current) drug therapy
CPT/HCPCS: 0241U; 36415; 70450; 80053; 81001; 82947; 83690; 83735; 84484; 84702; 85025; 85610; 93005; 96360; 99284; 99285

== ENCOUNTER → 2025-01-24 15:47 | Outpatient (BNV) | payer OTHER, SELFPAY | PROVIDERS: Visit Provider Radiology Diagnostic Radiology | DX: G44.309 Post-traumatic headache, unspecified, not intractable (principal) | CPT/HCPCS: 70450 ==

== ENCOUNTER → 2025-01-24 15:47 | Outpatient (BNV) | payer OTHER, SELFPAY | PROVIDERS: Emergency Provider Emergency Medicine; Visit Provider Internal Medicine | DX: R94.31 Abnormal electrocardiogram [ECG] [EKG] (principal); R55 Syncope and collapse | CPT/HCPCS: 93010 ==

== ENCOUNTER 2025-02-19 20:43 | Emergency (ER) | payer OTHER, SELFPAY ==
--- NOTE | ~2025-02-19 | CT_ITS ---
CLINICAL HISTORY: headache? cva CT head without contrast Comparison: CT/MA/SR - CT HEAD WITHOUT IV CONTRAST - 01/24/25 16:22 EDT Findings: No intra-axial mass, midline shift, hydrocephalus, or acute hemorrhage. No significant atrophy-like change or white matter disease. The visualized paranasal sinuses and mastoid air cells are normal. The orbits are within normal limits. No skull fracture. IMPRESSION: 1. No acute intracranial findings. This document has been electronically signed by: Latricia Llamas MD on 02/19/2025 21:54:06
[2025-02-19 20:48] VITALS: BP 192/107; PULSE 108; RESP 18; TEMP 36.4; O2SAT 100; BMI 25.3
--- NOTE | 2025-02-19 20:51 | ED.GENADULT ---
HPI - General Adult General Stated complaint: thinks she woke up having a stroke / feeling weak Related Data Home Medications ?Medication ?Instructions ?Recorded ?Confirmed cetirizine 10 mg tablet 10 mg PO DAILY PRN allergies 09/29/24 12/10/24 clonazepam 0.5 mg tablet 0.5 mg PO BID PRN Anxiety 09/29/24 12/10/24 clonidine HCl 0.3 mg tablet 0.3 mg PO BEDTIME 09/29/24 12/10/24 doxepin 100 mg capsule 100 mg PO BEDTIME 09/29/24 12/10/24 empagliflozin 25 mg tablet 25 mg PO DAILY diabetes mellitus 09/29/24 12/10/24 (Jardiance) lamotrigine 150 mg tablet 150 mg PO BEDTIME 09/29/24 12/10/24 montelukast 10 mg tablet 10 mg PO DAILY asthma 09/29/24 12/10/24 pantoprazole 40 mg tablet,delayed 40 mg PO BID@0630,1630 09/29/24 12/10/24 release pregabalin 150 mg capsule 150 mg PO DAILY 09/29/24 12/10/24 pregabalin 150 mg capsule 300 mg PO BEDTIME 09/29/24 12/10/24 spironolactone 25 mg tablet 25 mg PO DAILY 09/29/24 12/10/24 tramadol 50 mg tablet 50 mg PO Q12H PRN pain 09/29/24 12/10/24 albuterol sulfate 90 mcg/actuation 2 puff inhalation Q6H PRN 12/10/24 12/10/24 aerosol inhaler (Ventolin HFA) Shortness Of Breath Or Wheezing aspirin 81 mg tablet,delayed 81 mg PO DAILY 12/10/24 12/10/24 release fluticasone 250 mcg-salmeterol 50 1 ea inhalation BID PRN Shortness 12/10/24 12/10/24 mcg/dose blistr powdr for Of Breath Or Wheezing inhalation (Advair Diskus) Previous Rx's ?Medication ?Instructions ?Recorded insulin glargine 100 unit/mL (3 10 unit (0.1 mL) subcut QPM #15 mL 12/13/24 mL) subcutaneous pen (Lantus Solostar U-100 Insulin) betamethasone dipropionate 0.05 % 1 appl topical DAILY PRN rash #60 01/24/25 lotion mL Allergies Allergy/AdvReac Type Severity Reaction Status Date / Time ciprofloxacin (From CIPRO) Allergy Intermediate RASH Verified 02/19/25 20:52 Sulfa (Sulfonamide Allergy Intermediate RASH Verified 02/19/25 20:52 Antibiotics) (SULFA (SULFONAMIDE ANTIBIOTICS)) sulfamethoxazole (From Allergy Unknown SWELLING Verified 02/19/25 20:52 SEPTRA) trimethoprim (From SEPTRA) Allergy Unknown SWELLING Verified 02/19/25 20:52 SEAFOOD Allergy Severe ANAPHYLAXIS Uncoded 02/19/25 20:52 COUNTS INCLUDE 234 BEDS AT THE [facility] Past Medical History Medical History Asthma Diabetes Hepatitis A Social History Social History Household Members: Family Housing: Apartment Do you presently have visiting nurse or other home services: No Unable to assess alcohol history related to: Unknown Alcohol intake: never Patient Tobacco Use Status: Tobacco use Unknown Tobacco use type: Cigarette Cigarettes Per Day: 2 Years Smoked: 20 e-Cigarette/Vaping Use: Currently Using Second Hand Smoke Exposure: No service: No Course Course Course Narrative: This is an RME performed by Yari Garcia CNP: Additional HPI, ROS, PE not included below will be deferred to primary provider. Patient is a 49 year old female who presents to the emergency department with her son for evaluation. Evidently she awoke at 13:30 today and had reported that she felt like she had a stroke. She awoke with left eye redness, left-sided headache, bilateral knees feeling weak and generalized weakness she was evidently incontinent of her bowels on herself with black stool. She remained home. Her son got home from work this evening and she had told him what happened. Evidently he states that she is confused, she was able to drive her vehicle but was lost and disoriented did not know where she was going they were ultimately pulled over by police. She endorses having a chest heaviness but denies any shortness of breath currently. She is answering questions appropriately. NIH scale 0. Patient was brought back to [facility] and ED for further evaluation and treatment Discharge Plan Discharge Prescriptions: No Action fluticasone propion-salmeterol [Advair Diskus] 250-50 mcg/dose blister with device 1 ea INHALATION BID PRN (Reason: Shortness Of Breath Or Wheezing) aspirin 81 mg tablet,delayed release (DR/EC) 81 mg PO DAILY albuterol sulfate [Ventolin HFA] 90 mcg/actuation HFA aerosol inhaler 2 puff INHALATION Q6H PRN (Reason: Shortness Of Breath Or Wheezing) insulin glargine [Lantus Solostar U-100 Insulin] 100 unit/mL (3 mL) insulin pen 10 unit subcut QPM Qty: 15 0RF lamotrigine 150 mg tablet 150 mg PO BEDTIME cetirizine 10 mg tablet 10 mg PO DAILY PRN (Reason: allergies) clonazepam 0.5 mg tablet 0.5 mg PO BID PRN (Reason: Anxiety) clonidine HCl 0.3 mg tablet 0.3 mg PO BEDTIME tramadol 50 mg tablet 50 mg PO Q12H PRN (Reason: pain) spironolactone 25 mg tablet 25 mg PO DAILY doxepin 100 mg capsule 100 mg PO BEDTIME pantoprazole 40 mg tablet,delayed release (DR/EC) 40 mg PO BID@0630,1630 montelukast 10 mg tablet 10 mg PO DAILY Jardiance 25 mg tablet 25 mg PO DAILY pregabalin 150 mg capsule 150 mg PO DAILY pregabalin 150 mg capsule 300 mg PO BEDTIME betamethasone dipropionate 0.05 % lotion 1 appl topical DAILY PRN (Reason: rash) Qty: 60 0RF Rx Instructions: apply to the affected areas twice daily Print Language: Moldovan
--- NOTE | 2025-02-19 20:59 | ECG_ITS ---
Test Reason : DIZZINESS Blood Pressure : */* mmHG Vent. Rate : 91 BPM Atrial Rate : 91 BPM P-R Int : 168 ms QRS Dur : 80 ms QT Int : 408 ms P-R-T Axes : 50 -2 22 degrees QTcB Int : 501 ms Normal sinus rhythm Possible Left atrial enlargement Prolonged QT Abnormal ECG When compared with ECG of 24-Jan-2025 16:03, No significant change was found Referred By: Dann Brice Electronically Signed By: Pasquale Stauffer
[2025-02-19 21:26] LABS: MANUAL DIFF FLAG NO
[2025-02-19 21:28] LABS: Hematocrit 43.6 % (37.0-47.0); Hemoglobin 14.5 g/dl (12.0-16.0); Imm Gran Abs Auto 0.04 X10*3/uL (0.00-0.03); Imm Gran Pct Auto 0.4 % (0.0-0.4); Lymphocytes Absolute Auto 2.6 X10*3/uL (1.2-4.9); Mean Corpuscular HGB Conc 33.3 g/dl (31.0-35.0); Mean Corpuscular Hemoglobin 29.2 pg (27.0-33.0); Mean Corpuscular Volume 87.7 fL (80.0-98.0); NRBC Abs Auto 0.000 X10*3/uL (0.0-0.012); NRBC Pct Auto 0.0 /100WBC (0.0-0.2); Platelet Count 304 X10*3/uL (160-400); Red Blood Count 4.97 X10*6/uL (4.20-5.50); White Blood Count 10.9 X10*3/uL (4.8-10.8)
[2025-02-19 21:30] VITALS: BP 152/90; PULSE 92; RESP 12; O2SAT 96
--- NOTE | 2025-02-19 21:32 | PC.NURSE ---
Patient brought to ED room [address], patient is alert, oriented x2, self and place, was not able state current date. Patient complaints of left sided headache, rates it as 10/10, constant, onset around 01:330 pm. Patient also endorses weakness in b/l knees and erythema in sclera of left eye with no draiange. EKG completed by CHERYLE, technician inventory specialist, 20 G IV access established in [facility], labs drawn and sent to lab for processing. Dr. Bose at bedside.
[2025-02-19 21:42] LABS: INTERNATIONAL NORM RATIO 1.0 (0.9-1.1); Prothrombin Time 11.3 SEC (10.9-12.4)
[2025-02-19 21:48] LABS: Alanine Aminotransferase 85 U/L (0-31); Albumin Level 4.5 g/dL (3.5-5.0); Alkaline Phosphatase 134 U/L (39-117); Anion Gap 17 (12-20); Aspartate Amino Transferase 33 U/L (5-31); Blood Urea Nitrogen 19 mg/dL (9-16); Calcium 9.5 mg/dL (8.4-10.2); Carbon Dioxide 24 mmol/L (22-29); Chloride 99 mmol/L (96-108); Creatinine Clr Calc Pharmacy 84.9; Estimated Glomerular Filt Rate > 60; Potassium 4.6 mmol/L (3.3-5.1); Sodium 135 mmol/L (135-145); Total Protein 8.2 g/dL (6.5-8.0)
--- NOTE | 2025-02-19 22:58 | ED_ITS ---
HPI - Headache General Chief Complaint: Neuro Symptoms/Deficit Stated Complaint: thinks she woke up having a stroke / feeling weak Time Seen by Provider: 02/19/25 20:58 Source: patient Mode of arrival: ambulatory Limitations: no limitations History of Present Illness ED Provider: HPI Narrative: Patient's history of type 2 diabetes, gastroparesis, hyperlipidemia, anxiety, depression, asthma woke up at 13:30 today with left-sided headache and redness of the left eye with slight pain of the patient complaining of weakness of both lower extremities no injury to the eye patient's said she had a soft bowel movement which was blackish Related Data Home Medications ?Medication ?Instructions ?Recorded ?Confirmed cetirizine 10 mg tablet 10 mg PO DAILY PRN allergies 09/29/24 12/10/24 clonazepam 0.5 mg tablet 0.5 mg PO BID PRN Anxiety 12/10/24 clonidine HCl 0.3 mg tablet 0.3 mg PO BEDTIME 09/29/24 12/10/24 doxepin 100 mg capsule 100 mg PO BEDTIME 09/29/24 0 12/10/24 empagliflozin 25 mg tablet 25 mg PO DAILY diabetes marc litus 09/29/24 12/10/24 (Jardiance) lamotrigine 150 mg tablet 150 mg PO BEDTIME 09/29/24 0 12/10/24 montelukast 10 mg tablet 10 mg PO DAILY asthma 12/10/24 pantoprazole 40 mg tablet,delayed 40 mg PO BID@0630,16 30 09/29/24 12/10/24 release pregabalin 150 mg capsule 150 mg PO DAILY 09/29/2406/26 pregabalin 150 mg capsule 300 mg PO BEDTIME 09/29/24 0 12/10/24 spironolactone 25 mg tablet 25 mg PO DAILY 09/29/24 tramadol 50 mg tablet 50 mg PO Q12H PRN pain 09/2912/10/24 albuterol sulfate 90 mcg/actuation 2 puff inhalation Q 6H PRN 12/10/24 12/10/24 aerosol inhaler (Ventolin HFA) Shortness Of Breath Or Wheezing aspirin 81 mg tablet,delayed 81 mg PO DAILY 12/10/24 0 12/10/24 release fluticasone 250 mcg-salmeterol 50 1 ea inhalation BID PRN Shortness 12/10/24 12/10/24 mcg/dose blistr powdr for Of Breath Or Wheezing inhalation (Advair Diskus) Previous Rx's ?Medication ?Instructions ?Recorded insulin glargine 100 unit/mL (3 10 unit (0.1 mL) subcu t QPM #15 mL 12/13/24 mL) subcutaneous pen (Lantus Solostar U-100 Insulin) betamethasone dipropionate 0.05 % 1 appl topical DAILY PRN rash #60 01/24/25 lotion mL [id number]-vinaxrzr 1 tab PO Q6H PRN hae adace #20 tabs 02/20/25 50 mg-325 mg-40 mg tablet tobramycin 0.3 % eye drops 2 drp ophthalmic-Left Q4H # 5 mL 02/20/25 Allergies Allergy/AdvReac Type Severity Reaction Status Date / Time ciprofloxacin (From CIPRO) Allergy Intermediate RASH Verified 02/19/25 20:52 Sulfa (Sulfonamide Allergy Intermediate RASH Verified 02/19/25 20:52 Antibiotics) (SULFA (SULFONAMIDE ANTIBIOTICS)) sulfamethoxazole (From Allergy Unknown SWELLING Verified 02/19/25 20:52 SEPTRA) trimethoprim (From SEPTRA) Allergy Unknown SWELLING Verified 02/19/25 20:52 SEAFOOD Allergy Severe ANAPHYLAXIS Uncoded 02/19/25 20:52 [facility] Past Medical History Medical History Asthma Diabetes Hepatitis A Social History Social History Household Members: Family Housing: Apartment Do you presently have visiting nurse or other home services: No Unable to assess alcohol history related to: Unknown Alcohol intake: never Patient Tobacco Use Status: Tobacco use Unknown Tobacco use type: Cigarette Cigarettes Per Day: 2 Years Smoked: 20 Smoked in Last 30 Days: Yes e-Cigarette/Vaping Use: Currently Using Second Hand Smoke Exposure: No Use of substances other than those prescribed or required for medical reasons: No Advance Directives: No Advance Directives Information Provided: No Do you have a plan to hurt others: No Plan Patient : No service: No Physical Exam 2 Vital Signs: Vital Signs: Last Vital Signs Temp 98.4 F 07/22/25 00:02 Pulse 84 02/20/25 00:02 Resp 15 02/20/25 00:02 BP 130/86 02/20/25 00:02 Pulse Ox 98 02/20/25 00:02 O2 Del Method Room Air 02/20/25 00:02 BMI result Body Mass Index 25.3 Appearance: Alert. Oriented X3. No acute distress. Eyes: PERRLA, No Nystagmus injected left conjunctiva iris normal IOP 23 B/E fluorescein uptake negative EOMI anterior chamber normal ENT: Pharynx normal. Oral Mucosa moist Neck: Normal inspection. Neck supple. CVS: Normal heart rate and rhythm. Pulses normal. Respiratory: No respiratory distress. Equal air entry bilateral, no wheezing/rales/rhonchi Abdomen: Soft and nontender. Bowel sounds are present, no mass palpable, no CVA tenderness Skin: Skin warm and dry. Normal skin color. Normal skin turgor. Extremities: No lower extremity edema. No calf tenderness Rectal: Brown stool guaiac negative Neuro: Oriented X 3. No motor deficit. No sensory deficit.No cerebellar signs , cranial nerves II-XII intact Medications Administered Discontinued Medications Generic Name Dose Route Start Last Admin Trade Name Freq PRN Reason Stop Dose Admin Diphenhydramine HCl 25 mg 02/20/25 01:04 02/20/25 01:17 Diphenhydramine Hcl 50 Mg/Ml Vial IVPUSH 02/20/25 01:05 25 mg ONCE ONE Administration Fluorescein Sodium 1 strip 02/19/25 23:26 02/20/25 01:03 Fluorescein Sodium Strip EYE-LEFT 02/19/25 23:27 1 strip ONCE ONE Administration Sodium Chloride 1,000 mls @ 999 mls/hr 02/19/25 22:13 02/20/25 00:05 Ns IV 02/19/25 23:13 Infused .Q1H1M ONE Infusion Insulin Human Lispro 14 unit 02/19/25 22:13 02/19/25 22:29 Insulin Lispro 100 Unit/Ml 3 Ml Vial SUBCUT 02/19/25 22:14 14 unit ONCE ONE Administration Ketorolac Tromethamine 30 mg 02/20/25 01:04 02/20/25 01:17 Ketorolac Tromethamine 30 Mg/Ml Vial IVPUSH 02/20/25 01:05 30 mg ONCE ONE Administration Morphine Sulfate 4 mg 02/19/25 22:46 02/19/25 23:00 Morphine Sulfate 4 Mg/Ml Cartridge IVPUSH 02/19/25 22:47 4 mg ONCE ONE Administration Protocol Ondansetron HCl 4 mg 02/19/25 22:46 02/19/25 23:00 Ondansetron Hcl 4 Mg/2 Ml Vial IVPUSH 02/19/25 22:47 4 mg ONCE ONE Administration Tetracaine HCl 1 drop 02/20/25 00:58 02/20/25 01:02 Tetracaine Hcl/Pf 0.5% Oph Marsha 4 Ml Drops EYE-LEFT 02/20/25 00:59 1 drop ONCE ONE Administration Tobramycin Sulfate 2 drop 02/20/25 00:58 02/20/25 01:02 Tobramycin Sulfate 0.3% Marsha Op 5 Ml Btl EYE-LEFT 02/20/25 00:59 2 drop ONCE ONE Administration Medical Decision Making Medical Decision Making MDM Narrative: Patient with left-sided headache with injected eyes workup negative for CVA fluorescein uptake was also negative for corneal abrasion anterior chamber was negative iris was normal fundus benign patient's during stay in the ER was reading woke no fever likely conjunctivitis as the cause of the redness of the left eye and tension headache as the cause for the headache Differential Diagnosis Differential Diagnoses: The differential diagnosis associated with the presentation includes Tension headache/migraine/CVA/TIA/conjunctivitis/cornea abrasion/iritis/acute narrow angle glaucoma Admission/Observation Consideration of admission/observation: Escalation of care including admission/observation considered Lab Data [facility] Lab Attestation statement: I reviewed the patient's lab results. 02/19/25 21:21 02/19/25 21:21 Labs: Lab Results 02/19/25 02/19/25 02/20/25 Range/Units 21:21 22:54 00:53 WBC 10.9 H (4.8-10.8) X10*3/uL RBC 4.97 (4.20-5.50) X10*6/uL Hgb 14.5 (12.0-16.0) g/dl Hct 43.6 (37.0-47.0) % MCV 87.7 (80.0-98.0) fL MCH 29.2 (27.0-33.0) pg MCHC 33.3 (31.0-35.0) g/dl RDW 13.6 (11.0-16.0) % Plt Count 304 (160-400) X10*3/uL MPV 10.0 (9.4-12.3) fL Immature Gran % (Auto) 0.4 (0.0-0.4) % Neut % (Auto) 68.6 (45-73) % Lymph % (Auto) 24.0 (20-40) % [place]cl[place] % (Auto) 6.3 (2-11) % Eos % (Auto) 0.4 (0-4) % Baso % (Auto) 0.3 (0-2) % Lymph # (Auto) 2.6 (1.2-4.9) X10*3/uL [place] # (Auto) 0.7 (0.1-1.2) X10*3/uL Eos # (Auto) 0.0 (0.0-0.4) X10*3/uL Baso # (Auto) 0.0 (0.0-0.2) X10*3/uL Abs Immat Gran (auto) 0.04 H (0.00-0.03) X10*3/uL Absolute Neuts (auto) 7.5 (2.0-8.3) x10*3/uL Absolute Nucleated RBC 0.000 (0.0-0.012) X10*3/uL Nucleated RBC % (auto) 0.0 (0.0-0.2) /100WBC PT 11.3 (10.9-12.4) SEC INR 1.0 (0.9-1.1) Sodium 135 (135-145) mmol/L Potassium 4.6 D (3.3-5.1) mmol/L Chloride 99 (96-108) mmol/L Carbon Dioxide 24 (22-29) mmol/L Anion Gap 17 (12-20) BUN 19 H (9-16) mg/dL Creatinine 0.79 (0.5-1.4) mg/dL Estim Creat Clear Calc 84.9 Estimated GFR > 60 POC Glucose 141 H (60-115) mg/dL Random Glucose 443 H* (60-115) mg/dL Calcium 9.5 D (8.4-10.2) mg/dL Total Bilirubin 0.3 (0.0-1.0) mg/dL AST 33 H (5-31) U/L ALT 85 H (0-31) U/L Alkaline Phosphatase 134 H (39-117) U/L Total Protein 8.2 H (6.5-8.0) g/dL Albumin 4.5 (3.5-5.0) g/dL Urine Color Yellow Urine Appearance Clear Urine pH 5.5 (5.0-9.0) Ur Specific [place] >= 1.030 H (1.005-1.025) Urine Protein Negative (Neg-Trace) mg/dL Urine Glucose (UA) >=1000 H (Negative) mg/dL Urine Ketones Negative (Negative) mg/dL Urine Blood Negative (Negative) Urine Nitrite Negative (Negative) Ur Leukocyte Esterase Negative (Negative) Urine RBC 0-2 (0-2) /HPF Urine WBC 0-5 (0-5) /HPF Ur Squamous Epith Cells 0-2 (0-2) /HPF Urine Bacteria None Seen (None Seen) Hyaline Casts 0-2 (0-2) /LPF Stool Occult Blood NEGATIVE (NEGATIVE) Independent Interpretation I performed an independent interpretation of an: EKG and CT Scan Interpretation: Normal sinus rhythm with ventricular rate of 91 beats per minute normal interval normal axis no acute ST-T changes no acute ischemia Radiology Impression Discussion of test interpretation with radiology: I have reviewed the radiologist's reading. Discharge Plan Discharge Clinical Impression: Headache, Conjunctivitis Patient Disposition: Home, Self-Care Instructions: Acute Headache (ED), Conjunctivitis (ED) Additional Instructions: Take medication for headache as prescribed Eyedrops for conjunctivitis as prescribed Follow up with your PCP Prescriptions: New rwweduwchs-blttubdligeyz-ozms 50-325-40 mg tablet 1 tab PO Q6H PRN (Reason: haeadace) Qty: 20 0RF tobramycin 0.3 % drops 2 drp ophthalmic-Left Q4H Qty: 5 0RF No Action fluticasone propion-salmeterol [Advair Diskus] 250-50 mcg/dose blister with device 1 ea INHALATION BID PRN (Reason: Shortness Of Breath Or Wheezing) aspirin 81 mg tablet,delayed release (DR/EC) 81 mg PO DAILY albuterol sulfate [Ventolin HFA] 90 mcg/actuation HFA aerosol inhaler 2 puff INHALATION Q6H PRN (Reason: Shortness Of Breath Or Wheezing) insulin glargine [Lantus Solostar U-100 Insulin] 100 unit/mL (3 mL) insulin pen 10 unit subcut QPM Qty: 15 0RF lamotrigine 150 mg tablet 150 mg PO BEDTIME cetirizine 10 mg tablet 10 mg PO DAILY PRN (Reason: allergies) clonazepam 0.5 mg tablet 0.5 mg PO BID PRN (Reason: Anxiety) clonidine HCl 0.3 mg tablet 0.3 mg PO BEDTIME tramadol 50 mg tablet 50 mg PO Q12H PRN (Reason: pain) spironolactone 25 mg tablet 25 mg PO DAILY doxepin 100 mg capsule 100 mg PO BEDTIME pantoprazole 40 mg tablet,delayed release (DR/EC) 40 mg PO BID@0630,1630 montelukast 10 mg tablet 10 mg PO DAILY Jardiance 25 mg tablet 25 mg PO DAILY pregabalin 150 mg capsule 150 mg PO DAILY pregabalin 150 mg capsule 300 mg PO BEDTIME betamethasone dipropionate 0.05 % lotion 1 appl topical DAILY PRN (Reason: rash) Qty: 60 0RF Rx Instructions: apply to the affected areas twice daily Print Language: Greenlandic
[2025-02-19 23:00] VITALS: RESP 14
[2025-02-19 23:00] LABS: OBS Int Ctl Valid YES; OBS1 NEGATIVE (NEGATIVE)
[2025-02-19 23:03] LABS: Appearance Urine Clear; Glucose Urine UA >=1000 mg/dL (Negative); PH 5.5 (5.0-9.0); Specific Gravity - Urine >= 1.030 (1.005-1.025); UMIC TRIGGER UACC YES
[2025-02-20 00:02] VITALS: BP 130/86; PULSE 84; RESP 15; TEMP 36.9; O2SAT 98
[2025-02-20 00:57] LABS: Glucose, Whole Blood 141 mg/dL (60-115)
[2025-02-20] MEDS: Tetracaine HCl/PF 0.5% Oph Sol 4 ML DROPS 1 DROP EYE-LEFT (01:02)
[2025-02-20] MEDS: Tobramycin Sulfate 0.3% Sol Op 5 ML BTL 2 DROP EYE-LEFT (01:02)
[2025-02-20] MEDS: Fluorescein Sodium STRIP 1 STRIP EYE-LEFT (01:03)
[2025-02-20 01:37] VITALS: BP 141/89; PULSE 71; RESP 16; TEMP 37.1; O2SAT 98
== END 2025-02-20 01:38 | disposition home or self-care (01) ==
PROVIDERS: Emergency Provider Internal Medicine
DX: R51.9 Headache, unspecified (principal); H10.9 Unspecified conjunctivitis; E11.9 Type 2 diabetes mellitus without complications; J45.909 Unspecified asthma, uncomplicated; B15.9 Hepatitis A without hepatic coma; F17.210 Nicotine dependence, cigarettes, uncomplicated; Z79.82 Long term (current) use of aspirin; Z79.4 Long term (current) use of insulin; Z79.899 Other long term (current) drug therapy
CPT/HCPCS: 36415; 70450; 80053; 81001; 81003; 82272; 82947; 85025; 85610; 93005; 96361; 96372; 96374; 96375; 99284; 99285; J1200; J1885; J2270; J2405

== ENCOUNTER → 2025-02-19 20:58 | Outpatient (BNV) | payer OTHER, SELFPAY | PROVIDERS: Emergency Provider Internal Medicine; Visit Provider Radiology Diagnostic Radiology | DX: R51.9 Headache, unspecified (principal) | CPT/HCPCS: 70450 ==

== ENCOUNTER → 2025-02-19 20:59 | Outpatient (BNV) | payer OTHER, SELFPAY | PROVIDERS: Emergency Provider Internal Medicine; Visit Provider Internal Medicine Cardiovascular Disease | DX: R94.31 Abnormal electrocardiogram [ECG] [EKG] (principal); R42 Dizziness and giddiness | CPT/HCPCS: 93010 ==

== ENCOUNTER 2025-03-16 12:15 | Emergency (ER) | payer OTHER, SELFPAY ==
--- OUTSIDE RECORDS SUMMARY | 2015-11-21 05:57 | XMS_ITS | Continuity of Care Document ---
Author Organization [facility] Address [address] [place] [address] Phone Care Team Providers Care Reeler Operator Name Role Phone Juan Peña DO Unavailable [...] Diagnoses Date Provider Providers Copied on Encounter [facility], [address] [place], [place], [id number], [place] tel:[phone] [facility] No Information 6 Mariana Martinez. [address] [facility], [place], [id number] , [place]. tel: [phone] OFFICE/OUTPA TIENT VISIT, EST [facility], [address] [place], [place], [id number], [place] tel:[phone] [facility] Anxiety disorder, unspecifiedHypertens ionNicotine dependence, unspecified, uncomplicatedType 2 diabetes mellitus with hyperglycemia Mar-0 9-201 6 Mariana Martinez. [address] [place] [address], [place], [id number] , [place]. tel: [phone] OFFICE/OUTPA TIENT VISIT, [facility], [address] [place], [place], [id number], [place] tel:[phone] [facility] Abnormal levels of other serum enzymesAnxiety disorder, unspecifiedNicotine dependence, unspecified, uncomplicatedType 2 diabetes mellitus with hyperglycemiaHyperte nsion Nov-0 5-201 5 Mariana Martinez. [address] [place] [address], [place], [place], [id number] , [place]. tel: [phone] OFFICE/OUTPA TIENT VISIT, [facility], [address] [place], [place], [id number], [place] tel:[phone] [facility] Nicotine dependence, unspecified, uncomplicatedType 2 diabetes mellitus with hyperglycemiaOverwei ght Oct-0 8-201 5 Higgins Jennifer. [address] [place] [address], [place], [address], [place]. tel: [phone] [facility], [address] [place], [place], [id number], [place] tel:[phone] [facility] Abnormal liver enzymes Apr-2 0-201 5 Mariana Martinez. [address] [place] [address], [place], [place], [id number] , [place]. tel: [phone] OFFICE/OUTPA TIENT VISIT, [facility], [address] [place], [place], [id number], [place] tel:[phone] [facility] Anxiety state, unspecifiedCurrent smokerDiabetes mellitus without mention of complication, type II or unspecified type, uncontrolledInsomnia General medical examPTSD - Post-traumatic stress disorder Apr-1 6-201 5 Mariana Martinez. [address] [place] [address], [place], [place], [id number] , [place]. tel: [phone] OFFICE/OUTPA TIENT VISIT, [facility], [address] [place], [place], [id number], [place] tel:[phone] [facility] General medical examDiabetes mellitus without mention of complication, type II or unspecified type, uncontrolledPTSD - Post-traumatic stress disorderAnxiety state, unspecifiedEmphysema Current smokerInsomnia Mar-0 4-201 5 Mariana Martinez. [address] , [place], , [id number] , [place]. tel: [phone] Family History Family Member Type Diagnosis Age At Onset Father Problem (finding) Alive and well Mother Problem (finding) Alive and well Mother Problem (finding) diabetes melli tus in first degree relative Payers Payer name Insurance type Covered republican ID Keshav suarezgill(ricciLeonel Lees [place] CAN CI [id number] Social History Type Description Quantity Date Captured Comments Alcohol Use Details Unknown Caffeine Use Details Unknown Tobacco Use Status Smoking Status No Information Sex Female Sexual Orientation Straight or heterosexual Gender Identity Ngdoze-ue-Spfb (FTM) /Transgender Male/Trans Man Chief Complaint And [...]
--- NOTE | ~2025-03-16 | MR_ITS ---
CLINICAL HISTORY: multiple sclerosis work up MR brain without gadolinium Comparison: None provided Findings: No acute signal abnormalities noted on diffusion-weighted imaging. No acute intracranial fluid collection, hematoma or signal abnormality. Residual unmyelinated white matter around lateral ventricles. This is most likely congenital in nature. Midline structures are intact and within normal limits. Normal flow voids are noted within the vascular structures. Sinuses and mastoids are clear. Impression: No significant abnormalities. This document has been electronically signed by: Jose Cancino MD on 03/16/2025 20:40:42
--- NOTE | ~2025-03-16 | MR_ITS ---
CLINICAL HISTORY: MS work up MRI cervical spine without contrast Comparison: None provided Findings: C4-5 central disc bulge and/or osteophyte. Mild spinal stenosis without neural foraminal narrowing. C5-6 left paramidline disc bulge and/or osteophyte. Mild left neural foraminal narrowing without canal stenosis C6-7 central and left paramidline disc bulge and/or osteophyte. Mild left neural foraminal narrowing without canal stenosis. No other significant intervertebral disc disease. No acute bony signal abnormality noted. Posterior bony alignment is normal. Cervical cord normal in course and caliber. No cervical cord signal abnormalities. Impression: Mild degenerative change, otherwise unremarkable This document has been electronically signed by: Jose Cancino MD on 03/16/2025 20:43:59
[2025-03-16 12:25] VITALS: BP 120/75; PULSE 94; RESP 18; TEMP 36.6; O2SAT 98; BMI 26.8
--- NOTE | 2025-03-16 12:26 | ECG_ITS ---
Test Reason : stroke protocol Blood Pressure : */* mmHG Vent. Rate : 85 BPM Atrial Rate : 85 BPM P-R Int : 164 ms QRS Dur : 78 ms QT Int : 412 ms P-R-T Axes : 63 14 44 degrees QTcB Int : 490 ms Normal sinus rhythm Normal ECG When compared with ECG of 19-Feb-2025 21:07, No significant change was found Referred By: Analisa Corral Electronically Signed By: Pasquale Stauffer
--- NOTE | 2025-03-16 12:26 | ED_ITS ---
HPI - Neuro Symptoms/Deficit General Chief Complaint: Stroke Stated Complaint: right side of body numbness Time Seen by Provider: 03/16/25 12:44 Source: patient, family (son) and perforator typist Mode of arrival: ambulatory Limitations: language barrier History of Present Illness ED Provider: HPI Narrative: 49yo F with DM2 with hx gastroparesis, HLD, anxiety, depression, GERD, chronic back pain, and asthma was sent to emergency department by her PCP with multiple complaints and concerns. Patient is here with his son, she has had multiple somatic issues since she was admitted to the hospital in November of this year for pancreatitis her son states that after that a lot of her symptoms started, also in December she ran out of her lamotrigine and still has not taken that she did see her psychiatrist yesterday and apparently medication was sent to the pharmacy. She went to see a PCP today and when she noted to the PCP that she has had all these symptoms of intermittent extremity weakness numbness in her legs numbness in the right side of the body she feels like it is pins and needles, pain in the lower extremities, there was some type of seizure-like activity noted by her son with no postictal period, she did have history of syncope, there was no SI or HI no drug or alcohol use. But there was concern whether she is developing underlying neurologic issue. Her son states that her mom psychiatrically not doing very well and has been depressed. Related Data Home Medications ?Medication ?Instructions ?Recorded ?Confirmed cetirizine 10 mg tablet 10 mg PO DAILY PRN allergies 09/29/24 12/10/24 clonazepam 0.5 mg tablet 0.5 mg PO BID PRN Anxiety 12/10/24 clonidine HCl 0.3 mg tablet 0.3 mg PO BEDTIME 09/29/24 12/10/24 doxepin 100 mg capsule 100 mg PO BEDTIME 09/29/24 0 12/10/24 empagliflozin 25 mg tablet 25 mg PO DAILY diabetes marc litus 09/29/24 12/10/24 (Jardiance) lamotrigine 150 mg tablet 150 mg PO BEDTIME 09/29/24 0 12/10/24 montelukast 10 mg tablet 10 mg PO DAILY asthma 12/10/24 pantoprazole 40 mg tablet,delayed 40 mg PO BID@0630,16 30 09/29/24 12/10/24 release pregabalin 150 mg capsule 150 mg PO DAILY 09/29/2406/26 pregabalin 150 mg capsule 300 mg PO BEDTIME 09/29/24 0 12/10/24 spironolactone 25 mg tablet 25 mg PO DAILY 09/29/24 tramadol 50 mg tablet 50 mg PO Q12H PRN pain 09/2912/10/24 albuterol sulfate 90 mcg/actuation 2 puff inhalation Q 6H PRN 12/10/24 12/10/24 aerosol inhaler (Ventolin HFA) Shortness Of Breath Or Wheezing aspirin 81 mg tablet,delayed 81 mg PO DAILY 12/10/24 0 12/10/24 release fluticasone 250 mcg-salmeterol 50 1 ea inhalation BID PRN Shortness 12/10/24 12/10/24 mcg/dose blistr powdr for Of Breath Or Wheezing inhalation (Advair Diskus) Previous Rx's ?Medication ?Instructions ?Recorded insulin glargine 100 unit/mL (3 10 unit (0.1 mL) subcu t QPM #15 mL 12/13/24 mL) subcutaneous pen (Lantus Solostar U-100 Insulin) betamethasone dipropionate 0.05 % 1 appl topical DAILY PRN rash #60 01/24/25 lotion mL qvekdllclf-bnqazrflnqlmj-mkioodeu 1 tab PO Q6H PRN hae adace #20 tabs 02/20/25 50 mg-325 mg-40 mg tablet tobramycin 0.3 % eye drops 2 drp ophthalmic-Left Q4H # 5 mL 02/20/25 Allergies Allergy/AdvReac Type Severity Reaction Status Date / Time ciprofloxacin (From CIPRO) Allergy Intermediate RASH Verified 03/16/25 12:29 Sulfa (Sulfonamide Allergy Intermediate RASH Verified 03/16/25 12:29 Antibiotics) (SULFA (SULFONAMIDE ANTIBIOTICS)) sulfamethoxazole (From Allergy Unknown SWELLING Verified 03/16/25 12:29 SEPTRA) trimethoprim (From SEPTRA) Allergy Unknown SWELLING Verified 03/16/25 12:29 SEAFOOD Allergy Severe ANAPHYLAXIS Uncoded 03/16/25 12:29 Review of Systems 2 Constitutional: Constitutional: Reports as per [facility] Past Medical History Medical History Asthma Diabetes Hepatitis A Social History Social History Household Members: Family Housing: Apartment Do you presently have visiting nurse or other home services: No Unable to assess alcohol history related to: Unknown Alcohol intake: never Patient Tobacco Use Status: Tobacco use Unknown Tobacco use type: Cigarette Cigarettes Per Day: 2 Years Smoked: 20 e-Cigarette/Vaping Use: Currently Using Second Hand Smoke Exposure: No Advance Directives: No Advance Directives Information Provided: Yes Do you have a plan to hurt others: No Plan service: No Physical Exam 2 Vital Signs: Vital Signs: Last Vital Signs Temp 97.9 F 03/16/25 20:37 Pulse 82 03/16/25 20:37 Resp 16 03/16/25 20:37 BP 145/83 H 03/16/25 20:37 Pulse Ox 98 03/16/25 20:37 O2 Del Method Room Air 03/16/25 20:37 BMI result Body Mass Index 26.8 Const: Other: * Gen: ?Somewhat tired appearing, somewhat flat affect * HEENT: PERRLA, EOMI, MMM, * Neck: Supple, no LAD * CV: RRR, no obvious murmurs appreciated * Resp: ?No wheezing rales rhonchi no stridor moving air well * Abd: ?Bowel sounds are present, no tenderness no rebound no rigidity * MSK: FROM, strength 5/5 all extremities * Skin: Warm, dry, intact, * Neuro: ?Alert and oriented x3, patient was noted to be moving upper and lower extremities symmetrically when asked to do certain tasks but when I directly asked her to lift her right arm she states she is not able to lift it, when I tested the sensory exam she was pulling away stating it hurts, there was no facial asymmetry, no obvious dysmetria she did have difficult time standing up, she had good recruitment of her quads Course Course Course Narrative: Analisa Hernandezzeeshan FRONT COUNTER CLERK 03/16/25 1231 This is a rapid medical exam. Defer additional HPI, ROS and PE to primary provider. This is a 49-year-old female who is Italian-speaking with a past medical history of diabetes, COPD, fibromyalgia, GERD, depression and anxiety who presents with her son with concern for right-sided weakness/numbness, slurred speech, multiple seizures at home since Wednesday. No history of seizures. Sent over from PCP. On exam patient does have right-sided arm weakness Using perforator typist but patient reportedly has slurred speech. No facial weakness noted. Both of her legs do appear to be weak and she presents in a wheelchair but there does appear to be more weakness on the right lower extremity. Will need labs, EKG, CT head. Due to length of symptoms patient not a tPA candidate VSS Reevaluation(s) Reevaluation #1: stable for DC MRI negative can get EEG as outpatient family and patient aware and agreeable FAVIOLA 10pm 03/16/25 Medications Administered Discontinued Medications Generic Name Dose Route Start Last Admin Trade Name Karolina PRN Reason Stop Dose Admin Sodium Chloride 1,000 mls @ 999 mls/hr 03/16/25 16:00 03/16/25 17:31 Ns IV 03/16/25 17:00 Infused .Q1H1M SHANTE Infusion Insulin Human Regular 10 unit 03/16/25 15:50 03/16/25 16:16 Insulin Regular, Human 100 Unit/Ml 10 Ml Vial IVPUSH 03/16/25 15:51 10 unit ONCE ONE Administration Medical Decision Making Medical Decision Making [facility] Narrative: Patient is presenting with now more of a chronic picture of some type of decompensation in the meantime she has had 2 CTs of the head in December and January both of which have been negative, today when she went to see her PCP and was sent to the ER for multiple somatic complaints. She is complaining of numbness and weakness she is noted to be moving her upper and lower extremities symmetrically she does seem to be somewhat listless tired appearing again this is going on for the past few months, episodes of what her son describes her seizures and she did see a psychiatrist, possibly psychogenic nonepileptic seizures, she was on lamotrigine which is both a mood stabilizer and medication for seizures, I did not feel that CT is indicated as she has had 2 prior CTs and this is symptoms that are going back to 3 months ago with progression, I think MRI as a reasonable study to evaluate for any lesions and mostly for multiple sclerosis, her PCP mentioned myasthenia gravis these are all outpatient workup and think a referral to Neurology after ED visit is the next reasonable step that can be done by her provider on outpatient basis. I will also obtain psychiatric consult to discuss this presentation. Patient and her son were updated with the help of the lathe scalper operator. 5pm Pt's care will be signed out to the incoming provier Differential Diagnosis Differential Diagnoses: The differential diagnosis associated with the presentation includes Admission/Observation Consideration of admission/observation: Escalation of care including admission/observation considered 2022 Emergency Medicine Coding Guide from [employer] on 03/16/2025 All calculations should be rechecked by clinician prior to use RESULT SUMMARY: 5 Estimated Level of Service Problems: High (5) Risk: High (5) Data: Extensive (5) NARRATIVE MDM: This patient's problem complexity is High as patient: with chronic illness(es) with severe exacerbation/progression/side effects. This patient's risk is High due to: overall presentation requiring evaluation for a potentially High-risk process. This patient's data complexity is Extensive due to: -multiple tests ordered/reviewed -independent interpretation of imaging or EKG -discussion of management/testing with external professional INPUTS: Number and Complexity ?> 1 = 5: chronic illness w/severe exacerbation (a) Risk level ?> 4 = High Tests ordered ?> 2 = 2 Tests results reviewed (excluding labs) ?> 2 = 2 Prior external notes reviewed ?> 0 = 0 Assessment requiring and independent historian ?> 0 = No Independent interpretation of tests ?> 1 = Yes Discussed management/test interpretation w/external professional ?> 1 = Yes Lab Data [facility] Lab Attestation statement: I reviewed the patient's lab results. 03/16/25 12:46 03/16/25 12:46 Labs: Lab Results 03/16/25 03/16/25 03/16/25 Range/Units 12:46 15:57 17:38 WBC 9.8 (4.8-10.8) X10*3/uL RBC 5.06 (4.20-5.50) X10*6/uL Hgb 14.9 (12.0-16.0) g/dl Hct 43.4 (37.0-47.0) % MCV 85.8 (80.0-98.0) fL MCH 29.4 (27.0-33.0) pg MCHC 34.3 (31.0-35.0) g/dl RDW 12.9 (11.0-16.0) % Plt Count 329 (160-400) X10*3/uL MPV 10.0 (9.4-12.3) fL Immature Gran % (Auto) 0.3 (0.0-0.4) % Neut % (Auto) 58.1 (45-73) % Lymph % (Auto) 32.6 (20-40) % [place] % (Auto) 7.5 (2-11) % Eos % (Auto) 1.1 (0-4) % Baso % (Auto) 0.4 (0-2) % Lymph # (Auto) 3.2 (1.2-4.9) X10*3/uL [place] # (Auto) 0.7 (0.1-1.2) X10*3/uL Eos # (Auto) 0.1 (0.0-0.4) X10*3/uL Baso # (Auto) 0.0 (0.0-0.2) X10*3/uL Abs Immat Gran (auto) 0.03 (0.00-0.03) X10*3/uL Absolute Neuts (auto) 5.7 (2.0-8.3) x10*3/uL Absolute Nucleated RBC 0.000 (0.0-0.012) X10*3/uL Nucleated RBC % (auto) 0.0 (0.0-0.2) /100WBC PT 10.5 L (10.9-12.4) SEC INR 0.9 (0.9-1.1) APTT 34.0 (26.7-34.1) SEC Sodium 134 L (135-145) mmol/L Potassium 3.8 (3.3-5.1) mmol/L Chloride 94 L (96-108) mmol/L Carbon Dioxide 28 (22-29) mmol/L Anion Gap 16 (12-20) BUN 17 H (9-16) mg/dL Creatinine 1.03 (0.5-1.4) mg/dL Estim Creat Clear Calc 66.8 Estimated GFR 57 POC Glucose 440 H* 291 H (60-115) mg/dL Random Glucose 417 H* (60-115) mg/dL Calcium 9.8 (8.4-10.2) mg/dL Troponin I High Sens < 2.7 (<3.5-17.0) ng/L Triglycerides 378 H (<150) mg/dL Cholesterol 253 H (<200) mg/dL LDL Cholesterol, Calc 129 H (<100) mg/dL HDL Cholesterol 49 (>40) mg/dL TSH 2.23 (0.32-4.0) uIU/mL Independent Interpretation I performed an independent interpretation of an: EKG (85 beats per minute otherwise normal ECG without dysrhythmia, AV deshawn blocks or ST-T changes to suspect underlying ACS, my independent interpretation) Discharge Plan Discharge Clinical Impression: Multiple somatic complaints Depression Qualifiers: Depression Type: persistent depressive disorder Qualified Code(s): F34.1 - Dysthymic disorder Patient Disposition: Home, Self-Care Instructions: Depression (ED) Additional Instructions: will need outpatient EEG with primary care MRI shows no acute lesions MRI of neck has arthritis but no acute lesions psychiatry consulted as well recommends : Lamictal 25 mg daily for 14 days, then 50 mg daily (as prescribed 03/[address] Arreaga) return for any worsening symptoms or concerns. Prescriptions: No Action fluticasone propion-salmeterol [Advair Diskus] 250-50 mcg/dose blister with device 1 ea INHALATION BID PRN (Reason: Shortness Of Breath Or Wheezing) aspirin 81 mg tablet,delayed release (DR/EC) 81 mg PO DAILY albuterol sulfate [Ventolin HFA] 90 mcg/actuation HFA aerosol inhaler 2 puff INHALATION Q6H PRN (Reason: Shortness Of Breath Or Wheezing) insulin glargine [Lantus Solostar U-100 Insulin] 100 unit/mL (3 mL) insulin pen 10 unit subcut QPM Qty: 15 0RF lamotrigine 150 mg tablet 150 mg PO BEDTIME cetirizine 10 mg tablet 10 mg PO DAILY PRN (Reason: allergies) clonazepam 0.5 mg tablet 0.5 mg PO BID PRN (Reason: Anxiety) clonidine HCl 0.3 mg tablet 0.3 mg PO BEDTIME tramadol 50 mg tablet 50 mg PO Q12H PRN (Reason: pain) spironolactone 25 mg tablet 25 mg PO DAILY doxepin 100 mg capsule 100 mg PO BEDTIME pantoprazole 40 mg tablet,delayed release (DR/EC) 40 mg PO BID@0630,1630 montelukast 10 mg tablet 10 mg PO DAILY Jardiance 25 mg tablet 25 mg PO DAILY pregabalin 150 mg capsule 150 mg PO DAILY pregabalin 150 mg capsule 300 mg PO BEDTIME betamethasone dipropionate 0.05 % lotion 1 appl topical DAILY PRN (Reason: rash) Qty: 60 0RF Rx Instructions: apply to the affected areas twice daily jamngbvjkb-ajzgzbnylrukd-spqb 50-325-40 mg tablet 1 tab PO Q6H PRN (Reason: haeadace) Qty: 20 0RF tobramycin 0.3 % drops 2 drp ophthalmic-Left Q4H Qty: 5 0RF Print Language: Italian
[2025-03-16 12:54] LABS: MANUAL DIFF FLAG NO
[2025-03-16 12:57] LABS: Hematocrit 43.4 % (37.0-47.0); Hemoglobin 14.9 g/dl (12.0-16.0); Imm Gran Abs Auto 0.03 X10*3/uL (0.00-0.03); Imm Gran Pct Auto 0.3 % (0.0-0.4); Lymphocytes Absolute Auto 3.2 X10*3/uL (1.2-4.9); Mean Corpuscular HGB Conc 34.3 g/dl (31.0-35.0); Mean Corpuscular Hemoglobin 29.4 pg (27.0-33.0); Mean Corpuscular Volume 85.8 fL (80.0-98.0); NRBC Abs Auto 0.000 X10*3/uL (0.0-0.012); NRBC Pct Auto 0.0 /100WBC (0.0-0.2); Platelet Count 329 X10*3/uL (160-400); Red Blood Count 5.06 X10*6/uL (4.20-5.50); White Blood Count 9.8 X10*3/uL (4.8-10.8)
[2025-03-16 13:01] LABS: INTERNATIONAL NORM RATIO 0.9 (0.9-1.1); Prothrombin Time 10.5 SEC (10.9-12.4)
[2025-03-16 13:04] LABS: Partial Thromboplastin Time 34.0 SEC (26.7-34.1)
[2025-03-16 13:05] LABS: Stroke Lab Use COMPLETE
[2025-03-16 13:20] LABS: Troponin-I High Sensitivity < 2.7 ng/L (<3.5-17.0)
[2025-03-16 13:36] VITALS: BP 117/70
[2025-03-16 13:39] LABS: Anion Gap 16 (12-20); Blood Urea Nitrogen 17 mg/dL (9-16); Calcium 9.8 mg/dL (8.4-10.2); Carbon Dioxide 28 mmol/L (22-29); Chloride 94 mmol/L (96-108); Cholesterol 253 mg/dL (<200); Creatinine Clr Calc Pharmacy 66.8; Estimated Glomerular Filt Rate 57; HDL Cholesterol 49 mg/dL (>40); Potassium 3.8 mmol/L (3.3-5.1); Sodium 134 mmol/L (135-145); Triglycerides 378 mg/dL (<150)
--- OUTSIDE RECORDS SUMMARY | 2025-03-16 13:49 | XMS_ITS | Clinical Summary ---
Author Organization [employer] [facility] Address [address] [place] [address] Care Team Providers Care Security Coordinator Name Role Phone Unavailable Primary Care Provider [...] 1997 COVID-19 Vaccine (2023-2 5 season) 2024 Depression Screening 08/02/2024 Influenza Vaccine (#1) 2025 HIB Vaccines Aged Out No longer [...] 5 Years) and At-Risk Patients (6 to 49 Years) Aged Out No longer eligible b ased on patient's age to complete this topic RSV Immunization Patients Un antonio 20 months Aged Out No longer eligible b ased on patient's age to complete this topic Varicella Vaccines Aged Out No longer eligible based on patient's age to complete this topic
[2025-03-16 14:24] LABS: Thyroid Stimulating Hormone 2.23 uIU/mL (0.32-4.0)
--- NOTE | 2025-03-16 15:43 | PC.NURSE ---
Back documentation upon entering the ER room pt arrived in wheelchair, with weakness pt unable to get up on her own pt Assist of 2 transfer to stretcher. LUE weakness. BLE weakness. Right pupil sluggish. PT placed on Monitor, 20G IV inserted in PT right AC,Pt calm and cooperative with care.
--- NOTE | 2025-03-16 15:46 | PC.NURSE ---
PT rung paulie asking to use bathroom, due to this nurse initial transferring her on the stretcher and assessing t's weakness and pt being a fall risk, this nurse recommended a bed villafana for safety. PT started yelling at this nurse that she wouldn't use the bedpan and to get her the wheel chair to go to the bathroom, commode was offered but pt stated they couldn't wait. PT at bedside asking to just bring the pt herself and unhooking her from the monitor, this nurse asked PT family at bedside to lease not touch monitor. PT continued yelling about using the bed villafana this nurse was trying to educate family and pt on why it would be safer to use a bed villafana until pt got stronger, pt stated she didn't care ands was going to use the bathroom even if she had to drag herself there. Isatu RN assisted this nurse with pt to the bathroom in wheelchair, pt transferred back to bed reconnected to the monitor. Notified the salon that she went to the bathroom and still needed assistance and explained the concern for falls.
[2025-03-16 16:03] LABS: Glucose, Whole Blood 440 mg/dL (60-115)
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
[2025-03-16 17:42] VITALS: BP 102/56; PULSE 82; RESP 16; TEMP 36.4; O2SAT 97
[2025-03-16 18:40] LABS: Glucose, Whole Blood 291 mg/dL (60-115)
--- NOTE | 2025-03-16 19:00 | PC.NURSE ---
Son at bedside request that mom have water, Provider MD See approved of water.
--- NOTE | 2025-03-16 19:15 | PC.NURSE ---
Patient to MRI.
[2025-03-16 20:37] VITALS: BP 145/83; PULSE 82; RESP 16; TEMP 36.6; O2SAT 98
[2025-03-16 22:04] VITALS: BP 145/83; PULSE 82; RESP 16; TEMP 36.6; O2SAT 98
== END 2025-03-16 22:32 | disposition home or self-care (01) ==
PROVIDERS: Nurse Practitioner Family; Emergency Provider Emergency Medicine
DX: F45.0 Somatization disorder (principal); F34.1 Dysthymic disorder; G40.89 Other seizures; M54.50 Low back pain, unspecified; R20.0 Anesthesia of skin; R11.0 Nausea; Z79.899 Other long term (current) drug therapy; F17.210 Nicotine dependence, cigarettes, uncomplicated
CPT/HCPCS: 36415; 70551; 72141; 80048; 80061; 82947; 84443; 84484; 85025; 85610; 85730; 93005; 96361; 96374; 99284; 99285

== ENCOUNTER → 2025-03-16 12:26 | Outpatient (BNV) | payer OTHER, SELFPAY | PROVIDERS: Emergency Provider Emergency Medicine; Visit Provider Internal Medicine Cardiovascular Disease | DX: I63.9 Cerebral infarction, unspecified (principal) | CPT/HCPCS: 93010 ==

== ENCOUNTER → 2025-03-16 13:20 | Outpatient (BNV) | payer OTHER, SELFPAY | PROVIDERS: Emergency Provider Emergency Medicine; Visit Provider Radiology Diagnostic Radiology | DX: R20.2 Paresthesia of skin (principal) | CPT/HCPCS: 70551; 72141 ==

== ENCOUNTER → 2025-03-16 13:47 | Outpatient (BNV) | payer OTHER, SELFPAY | PROVIDERS: Emergency Provider Emergency Medicine; Visit Provider Clinical Nurse Specialist Psychiatric/Mental Health, Adult | DX: F34.1 Dysthymic disorder (principal) | CPT/HCPCS: 99282 ==

== ENCOUNTER 2025-05-02 16:40 | Emergency (ER) | payer OTHER, SELFPAY ==
--- OUTSIDE RECORDS SUMMARY | 2015-11-21 05:57 | XMS_ITS | Continuity of Care Document ---
Author Organization [facility] Address [address] [place] [address] Phone Care Team Providers Care Golf Instructor Name Role Phone Juan Peña DO Unavailable [...] Diagnoses Date Provider Providers Copied on Encounter [facility], [address] [place], [place], [id number], [place] tel:[phone] [facility] No Information 6 Mariana Martinez. [address] [facility], [place], [id number] , [place]. tel: [phone] OFFICE/OUTPA TIENT VISIT, EST [facility], [address] [place], [place], [id number], [place] tel:[phone] [facility] Anxiety disorder, unspecifiedHypertens ionNicotine dependence, unspecified, uncomplicatedType 2 diabetes mellitus with hyperglycemia Mar-0 9-201 6 Mariana Martinez. [address] [place] [address], [place], [id number] , [place]. tel: [phone] OFFICE/OUTPA TIENT VISIT, [facility], [address] [place], [place], [id number], [place] tel:[phone] [facility] Abnormal levels of other serum enzymesAnxiety disorder, unspecifiedNicotine dependence, unspecified, uncomplicatedType 2 diabetes mellitus with hyperglycemiaHyperte nsion Nov-0 5-201 5 Mariana Martinez. [address] [place] [address], [place], [place], [id number] , [place]. tel: [phone] OFFICE/OUTPA TIENT VISIT, [facility], [address] [place], [place], [id number], [place] tel:[phone] [facility] Nicotine dependence, unspecified, uncomplicatedType 2 diabetes mellitus with hyperglycemiaOverwei ght Oct-0 8-201 5 Higgins Jennifer. [address] [place] [address], [place], [address], [place]. tel: [phone] [facility], [address] [place], [place], [id number], [place] tel:[phone] [facility] Abnormal liver enzymes Apr-2 0-201 5 Mariana Martinez. [address] [place] [address], [place], [place], [id number] , [place]. tel: [phone] OFFICE/OUTPA TIENT VISIT, [facility], [address] [place], [place], [id number], [place] tel:[phone] [facility] Anxiety state, unspecifiedCurrent smokerDiabetes mellitus without mention of complication, type II or unspecified type, uncontrolledInsomnia General medical examPTSD - Post-traumatic stress disorder Apr-1 6-201 5 Mariana Martinez. [address] [place] [address], [place], [place], [id number] , [place]. tel: [phone] OFFICE/OUTPA TIENT VISIT, [facility], [address], [place], [id number], [place] tel:[phone] [facility] General medical examDiabetes mellitus without mention of complication, type II or unspecified type, uncontrolledPTSD - Post-traumatic stress disorderAnxiety state, unspecifiedEmphysema Current smokerInsomnia Mar-0 4-201 5 Mariana Martinez. [address] , [place], , [id number] , [place]. tel: [phone] Family History Family Member Type Diagnosis Age At Onset Father Problem (finding) Alive and well Mother Problem (finding) Alive and well Mother Problem (finding) diabetes melli tus in first degree relative Payers Payer name Insurance type Covered democrat ID Keshav suarezgill(ricciLeonel Lees [place] [id number] Social History Type Description Quantity Date Captured Comments Alcohol Use Details Unknown Caffeine Use Details Unknown Tobacco Use Status Smoking Status No Information Sex Female Sexual Orientation Straight or heterosexual Gender Identity Ntdnbq-dl-Fpcp (FTM) /Transgender Male/Trans Man Chief Complaint And [...]
--- NOTE | 2025-05-02 17:49 | PC.NURSE ---
patient was called to triage 3 different times without response
--- OUTSIDE RECORDS SUMMARY | 2025-05-02 17:59 | XMS_ITS | Clinical Summary ---
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
== END 2025-05-02 18:04 | disposition left against medical advice (07) ==
LOC: HO.ED 17:56
PROVIDERS: Emergency Provider Emergency Medicine; PCP Family Medicine
DX: R10.9 Unspecified abdominal pain (principal); Z53.21 Procedure and treatment not carried out due to patient leaving prior to being seen by health care provider

== ENCOUNTER 2025-05-03 21:40 | Inpatient (IN) | payer OTHER, SELFPAY ==
--- OUTSIDE RECORDS SUMMARY | 2015-11-21 05:57 | XMS_ITS | Continuity of Care Document ---
Author Organization [facility] Address [address] [place] [address] Phone Care Team Providers Care Laborer [employer] Name Role Phone Juan Peña DO Unavailable [...] Diagnoses Date Provider Providers Copied on Encounter [facility], [address], [place], [id number], [place] tel:[phone] [facility] No Information 6 Mariana Martinez. [address] [facility], [place], [id number] , [place]. tel: [phone] OFFICE/OUTPA TIENT VISIT, EST [facility], [address] [place], [place], [id number], [place] tel:[phone] [facility] Anxiety disorder, unspecifiedHypertens ionNicotine dependence, unspecified, uncomplicatedType 2 diabetes mellitus with hyperglycemia Mar-0 9-201 6 Mariana Martinez. [address] [place] [address], [place], [id number] , [place]. tel: [phone] OFF[facility]ENT [facility]IT, [facility] [address] [place], [place], [id number], [place] tel:[phone] [facility] Abnormal levels of other serum enzymesAnxiety disorder, unspecifiedNicotine dependence, unspecified, uncomplicatedType 2 diabetes mellitus with hyperglycemiaHyperte nsion Nov-0 5-201 5 Mariana Martinez. [address] [place] [address], [place], [place], [id number] , [place]. tel: [phone] OFFICE[facility]PA [facility]ENT VISIT, [facility] [address] [place], [place], [id number], [place] tel:[phone] [facility] Nicotine dependence, unspecified, uncomplicatedType 2 diabetes mellitus with hyperglycemiaOverwei ght Oct-0 8-201 5 Higgins Jennifer. [address] [place] [address], [place], [address], [place]. tel: [phone] [facility], [address] [place], [place], [id number], [place] tel:[phone] [facility] Abnormal liver enzymes Apr-2 0-201 5 Mariana Martinez. [address] [place] [address], [place], [place], [id number] , [place]. tel: [phone] OFFICE[facility]OUTPA TIENT VISIT, [facility], [address] [place], [place], [id number], [place] tel:[phone] [facility] Anxiety state, unspecifiedCurrent smokerDiabetes mellitus without mention of complication, type II or unspecified type, uncontrolledInsomnia General medical examPTSD - Post-traumatic stress disorder Apr-1 6-201 5 Mariana Martinez. [address] [place] [address], [place], [place], [id number] , [place]. tel: [phone] OFFICE/OUTPA TIENT VISIT, [facility], [address] [place], [place], [id number], [place] tel:[phone] [facility] General medical examDiabetes mellitus without mention of complication, type II or unspecified type, uncontrolledPTSD - Post-traumatic stress disorderAnxiety state, unspecifiedEmphysema Current smokerInsomnia Mar-0 4-201 5 Mariana Martinez. [address] , [place], , [id number] , [place]. tel: [phone] Family History Family Member Type Diagnosis Age At Onset Father Problem (finding) Alive and well Mother Problem (finding) Alive and well Mother Problem (finding) diabetes melli tus in first degree relative Payers Payer name Insurance type Covered alliance party ID Keshav suarezgill(ricciLeonel Lees [place] [id number] Social History Type Description Quantity Date Captured Comments Alcohol Use Details Unknown Caffeine Use Details Unknown Tobacco Use Status Smoking Status No Information Sex Female Sexual Orientation Straight or heterosexual Gender Identity Uclzkl-ya-Fgfg (FTM) /Transgender Male/Trans Man Chief Complaint And [...]
--- NOTE | ~2025-05-03 | CT_ITS ---
CLINICAL HISTORY: acute pancreatitis CT abdomen and pelvis with contrast Comparison: CT/SR - CT ABDOMEN PELVIS W IV CON - 05/04/2025 03:46 AM EDT Findings: No consolidation or pleural effusion. Left lung base subsegmental atelectasis versus scarring. The gallbladder is somewhat distended with intraluminal sludge versus artifact. No biliary ductal dilatation. No focal hepatic or splenic abnormality. The pancreas is unremarkable. No peripancreatic inflammatory changes. Stable 1.6 cm right adrenal and 2.2 cm left adrenal lesions. Enhancement of bilateral kidneys with no ureteral stones and no hydronephrosis or hydroureter. No perinephric stranding or perinephric fluid. No bowel obstruction, pneumoperitoneum, or pneumatosis. Szru-qd-ynwuxeek colonic stool. No free fluid. Normal appendix. Mild circumferential wall thickening of distal thoracic esophagus. Uterus is absent. Wall thickening of urinary bladder, correlate with urine analysis for cystitis. Atherosclerotic vascular disease with no aneurysm of the abdominal aorta. No acute fracture. IMPRESSION: 1. Urinary bladder wall thickening suggestive of cystitis. Correlate with urinalysis for cystitis. No CT evidence of acute pyelonephritis. 2. No CT evidence of acute or chronic pancreatitis. 3. Somewhat distended gallbladder with sludge versus artifact. 4. Mild circumferential wall thickening of distal thoracic esophagus, esophagitis not excluded. Correlate clinically. 5. Stable bilateral adrenal masses. This document has been electronically signed by: Elvira Sanchez MD on 05/07/2025 18:31:03
--- NOTE | ~2025-05-03 | XR_ITS ---
CLINICAL HISTORY: Abdominal distention 1 view abdomen Comparison: None provided Findings: No pneumoperitoneum or pneumatosis. No abnormal calcifications. No acute fractures. IMPRESSION: The bowel gas pattern is within normal limits This document has been electronically signed by: Gray Bryan MD on 05/05/2025 05:45:57
--- NOTE | ~2025-05-03 | US_ITS ---
EXAMINATION: US ABDOMEN LIMITED CLINICAL INFORMATION: Right upper quadrant pain.. COMPARISON: December 10, 2024. Correlated to CT dated May 04, 2025. TECHNIQUE: Real-time ultrasound of the gallbladder is seen grayscale technique. FINDINGS: Gallbladder is fluid-filled nondistended. No pericholecystic fluid collection or gallbladder wall thickening. Common bile duct measures 5 mm. US/US abdomen limited IMPRESSION: No cholelithiasis or gross choledocholithiasis. Electronically signed by: Carl Funez MD 05/04/2025 10:23 AM EDT
--- NOTE | ~2025-05-03 | CT_ITS ---
CLINICAL HISTORY: altered mental status CT head without contrast Comparison: 03/16/2025 02/19/2025, 01/24/2025 Findings: No new intra-axial mass, midline shift, hydrocephalus, or acute hemorrhage. No significant atrophy-like change or white matter disease. There is no sinus or mastoid fluid. The orbits are unremarkable. No skull fracture. IMPRESSION: 1. No acute intracranial findings. This document has been electronically signed by: Gray Bryan MD on 05/05/2025 06:37:32
--- NOTE | ~2025-05-03 | US_ITS ---
EXAMINATION: US RETROPERITONEAL COMPLETE (RENAL) CLINICAL INFORMATION: Hematuria. COMPARISON: None. Correlation made with CT abdomen and pelvis 05/04/2025. TECHNIQUE: Real-time imaging of the kidneys and bladder. FINDINGS: RIGHT KIDNEY: 10.6 x 5.9 x 6.7 cm (SAG x AP x TRV). The kidney is normal in size, contour, and echogenicity. Renal cortical thickness is normal. No calculi or focal parenchymal lesions. No hydronephrosis. LEFT KIDNEY: 11.0 x 4.8 x 4.9 cm (SAG x AP x TRV). The kidney is normal in size, contour, and echogenicity. Renal cortical thickness is normal. No calculi or focal parenchymal lesions. No hydronephrosis. BLADDER: Normal in distended. Mildly thickened and trabeculated bladder wall suggesting chronic outlet obstruction versus neurogenic bladder. Bilateral ureteral jets are demonstrated. Prevoid bladder volume is 439 mL. Postvoid bladder volume is 20 mL. US/US retroperitoneal comp IMPRESSION: 1. Normal kidneys bilaterally. 2. Mildly thickened and trabeculated urinary bladder wall, suggestive of chronic outlet obstruction versus neurogenic bladder. Electronically signed by: Smooth Cherry MD 05/07/2025 03:24 PM EDT
--- NOTE | ~2025-05-03 | CT_ITS ---
CLINICAL HISTORY: Epigastric Pain; Pancreatitis CT abdomen and pelvis with contrast Comparison: None provided Findings: No consolidation or effusion. There is concentric distal esophageal wall thickening. Correlate clinically for esophagitis. There is a nonspecific adjacent 0.9 cm lymph node, unchanged. There is a left adrenal 2.0 x 1.9 cm mass with indeterminate attenuation. There is a right adrenal 0.9 x 0.7 cm adrenal mass with similar attenuation. These are unchanged. The gallbladder and solid organs are otherwise within normal limits. No renal stones. No bowel obstruction, pneumoperitoneum, or pneumatosis. Pelvic contents unremarkable. Normal appendix. The bones are intact. IMPRESSION: 1. Distal esophageal wall changes, possible esophagitis. Consider gastroenterology consultation for follow-up. 2. Indeterminate adrenal masses, unchanged This document has been electronically signed by: Gray Bryan MD on 05/04/2025 05:08:45
[2025-05-03 21:46] VITALS: BP 110/63; PULSE 90; RESP 20; TEMP 36.8; O2SAT 99; BMI 26.6
[2025-05-03 23:03] LABS: MANUAL DIFF FLAG NO
[2025-05-03 23:05] LABS: Hematocrit 39.2 % (37.0-47.0); Hemoglobin 13.3 g/dl (12.0-16.0); Imm Gran Abs Auto 0.03 X10*3/uL (0.00-0.03); Imm Gran Pct Auto 0.3 % (0.0-0.4); Lymphocytes Absolute Auto 2.6 X10*3/uL (1.2-4.9); Mean Corpuscular HGB Conc 33.9 g/dl (31.0-35.0); Mean Corpuscular Hemoglobin 29.2 pg (27.0-33.0); Mean Corpuscular Volume 86.2 fL (80.0-98.0); NRBC Abs Auto 0.000 X10*3/uL (0.0-0.012); NRBC Pct Auto 0.0 /100WBC (0.0-0.2); Platelet Count 287 X10*3/uL (160-400); Red Blood Count 4.55 X10*6/uL (4.20-5.50); White Blood Count 9.4 X10*3/uL (4.8-10.8)
[2025-05-03 23:26] LABS: Alanine Aminotransferase 140 U/L (0-31); Albumin Level 4.3 g/dL (3.5-5.0); Alkaline Phosphatase 206 U/L (39-117); Anion Gap 14 (12-20); Aspartate Amino Transferase 61 U/L (5-31); Blood Urea Nitrogen 27 mg/dL (9-16); Calcium 10.0 mg/dL (8.4-10.2); Carbon Dioxide 29 mmol/L (22-29); Chloride 100 mmol/L (96-108); Creatinine Clr Calc Pharmacy 54.7; Estimated Glomerular Filt Rate 46; Potassium 3.8 mmol/L (3.3-5.1); Sodium 139 mmol/L (135-145); Total Protein 7.6 g/dL (6.5-8.0)
[2025-05-03 23:38] LABS: Lipase 370 U/L (8-78)
[2025-05-04] VITALS (12 sets, daily range): BP systolic 97–149; BP diastolic 56–77; PULSE 78–90; RESP 14–18; TEMP 36.1–36.8; O2SAT 97–100
--- NOTE | 2025-05-04 00:58 | ED_ITS ---
HPI - Abdominal Pain General Chief Complaint: Abdominal Pain Stated Complaint: abd pain,nausea Time Seen by Provider: 05/04/25 00:51 Source: patient Mode of arrival: ambulatory Limitations: language barrier ([employer] services utilized.) History of Present Illness ED Provider: Smooth CARR HPI narrative: The patient is a 50-year-old female presenting to the ED for re-evaluation of epigastric abdominal pain. The patient reports she was seen yesterday at [facility] for this pain and diagnosed with pancreatitis. Patient reports she signed out against medical advice because she did not want to be that far from her home in [place] and presents to this ED for re-evaluation and management. Patient reports she is amenable to admission here at [facility]. The patient reports associated nausea without associated vomiting, denies associated fever/chills, chest pain, shortness of breath, back pain, urinary symptoms, diarrhea, constipation, recent sick contacts, or recent trauma. The patient denies history of high cholesterol. Patient reports history of alcoholism but states she has been sober for the past 7 years. The patient reports remote history of hysterectomy, denies other surgical abdominal history. Related Data Home Medications ?Medication ?Instructions ?Recorded ?Confirmed cetirizine 10 mg tablet 10 mg PO DAILY PRN allergies 09/29/24 12/10/24 clonazepam 0.5 mg tablet 0.5 mg PO BID PRN Anxiety 12/10/24 clonidine HCl 0.3 mg tablet 0.3 mg PO BEDTIME 09/29/24 12/10/24 doxepin 100 mg capsule 100 mg PO BEDTIME 09/29/24 0 12/10/24 empagliflozin 25 mg tablet 25 mg PO DAILY diabetes marc litus 09/29/24 12/10/24 (Jardiance) lamotrigine 150 mg tablet 150 mg PO BEDTIME 09/29/24 0 12/10/24 montelukast 10 mg tablet 10 mg PO DAILY asthma 12/10/24 pantoprazole 40 mg tablet,delayed 40 mg PO BID@0630,16 30 09/29/24 12/10/24 release pregabalin 150 mg capsule 150 mg PO DAILY 09/29/2406/26 pregabalin 150 mg capsule 300 mg PO BEDTIME 09/29/24 0 12/10/24 spironolactone 25 mg tablet 25 mg PO DAILY 09/29/24 tramadol 50 mg tablet 50 mg PO Q12H PRN pain 09/2912/10/24 albuterol sulfate 90 mcg/actuation 2 puff inhalation Q 6H PRN 12/10/24 12/10/24 aerosol inhaler (Ventolin HFA) Shortness Of Breath Or Wheezing aspirin 81 mg tablet,delayed 81 mg PO DAILY 12/10/24 0 12/10/24 release fluticasone 250 mcg-salmeterol 50 1 ea inhalation BID PRN Shortness 12/10/24 12/10/24 mcg/dose blistr powdr for Of Breath Or Wheezing inhalation (Advair Diskus) Previous Rx's ?Medication ?Instructions ?Recorded insulin glargine 100 unit/mL (3 10 unit (0.1 mL) subcu t QPM #15 mL 12/13/24 mL) subcutaneous pen (Lantus Solostar U-100 Insulin) betamethasone dipropionate 0.05 % 1 appl topical DAILY PRN rash #60 01/24/25 lotion mL bqarklshuw-yjkomylozclyo-irmfxbzu 1 tab PO Q6H PRN hae adace #20 tabs 02/20/25 50 mg-325 mg-40 mg tablet tobramycin 0.3 % eye drops 2 drp ophthalmic-Left Q4H # 5 mL 02/20/25 Allergies Allergy/AdvReac Type Severity Reaction Status Date / Time ciprofloxacin (From CIPRO) Allergy Intermediate RASH Verified 05/03/25 21:47 Sulfa (Sulfonamide Allergy Intermediate RASH Verified 05/03/25 21:47 Antibiotics) (SULFA (SULFONAMIDE ANTIBIOTICS)) sulfamethoxazole (From Allergy Unknown SWELLING Verified 05/03/25 21:47 SEPTRA) trimethoprim (From SEPTRA) Allergy Unknown SWELLING Verified 05/03/25 21:47 SEAFOOD Allergy Severe ANAPHYLAXIS Uncoded 05/03/25 21:47 Review of Systems Review of Systems Yes all other systems are reviewed and are negative PMFSH Past Medical History Medical History Asthma Diabetes Hepatitis A Social History Social History Household Members: Family Housing: Apartment Do you presently have visiting nurse or other home services: No Alcohol intake: former Patient Tobacco Use Status: Tobacco use Unknown Tobacco use type: Cigarette Cigarettes Per Day: 2 Years Smoked: 20 e-Cigarette/Vaping Use: Currently Using Second Hand Smoke Exposure: No Use of substances other than those prescribed or required for medical reasons: No Advance Directives: No Patient : No service: No Physical Exam ED Vital Signs: Vital Signs - 24 hr 05/03/25 21:46 05/04/25 00:39 05/04/25 03:20 Temperature 98.2 F 97.6 F 97.6 F Pulse Rate 90 90 81 Respiratory Rate 20 16 14 Blood Pressure 110/63 103/63 99/56 L Pulse Oximetry 99 100 97 Oxygen Delivery Method Room Air Room Air Room Air BMI result Body Mass Index 26.6 CONSTITUTIONAL: The patient appears non-toxic, well nourished and in no acute distress. Vital signs as documented. HEAD: Atraumatic, normocephalic. EYES: EOMs grossly intact, pupils equal, conjunctiva clear, no exudate. ENT: Nares patent, no discharge. Airway patent, no audible stridor, visible mucosa is pink and moist without noted lesions. NECK: Trachea is midline, no obvious masses or gross abnormalities. CHEST: Symmetric movement, normal appearance. LUNGS: LS present and CTAB, no w/r/r. Non-labored work of breathing. CARDIAC: Regular Rhythm, S1/S2 appreciated, no murmurs, rubs or gallops. ABDOMEN: Abdomen soft x4 quadrants, mild distention, there is diffuse tenderness to palpation in all quadrants, negative rebound, no palpable masses or organomegaly. : Deferred. EXTREMITIES: Normal tone, moves all extremities spontaneously without reported pain. No obvious acute injury or deformity noted. NEURO: Alert and oriented x3, CN II-XII appear grossly intact. Cerebellar Functioning grossly intact. No obvious sensory or motor deficits. Speech clear and appropriate. PSYCH: normal affect, appropriate eye contact, fluid speech, with appropriate response to questioning. No reported suicidality or homicidality. SKIN: Warm, dry, color appropriate, normal turgor. No rashes noted. Medical Decision Making Medical Decision Making MDM Narrative: 3:01 AM 05/04/2025 (Kristina CARR): The patient is a 50-year-old female presenting to the ED for re-evaluation of epigastric abdominal pain. The patient reports she was seen yesterday at [facility] for this pain and diagnosed with pancreatitis. Patient reports she signed out against medical advice because she did not want to be that far from her home in [place] and presents to this ED for re-evaluation and management. Patient reports she is amenable to admission here at [facility]. The patient reports associated nausea without associated vomiting, denies associated fever/chills, chest pain, shortness of breath, back pain, urinary symptoms, diarrhea, constipation, recent sick contacts, or recent trauma. The patient denies history of high cholesterol. Patient reports history of alcoholism but states she has been sober for the past 7 years. The patient reports remote history of hysterectomy, denies other surgical abdominal history. In the ED patient is diffusely tender throughout her abdomen, without obvious rebound, there is some ytkk-gg-wrzwxqde abdominal distention. Laboratory evaluation shows no evidence of leukocytosis, anemia, electrolyte abnormality, or KODY. The patient's LFTs are abnormal with AST 61, ALT 140, and alkaline phosphatase 206. The patient's lipase is elevated at 370. The patient adamantly denied any alcohol use, however given the clinical picture of LFTs, an ethanol level, as well as lipid profile was added. The patient's lipid profile is not significantly concerning, alcohol level is 13. Patient is likely suffering from alcoholic pancreatitis. Patient has been treated with Toradol, morphine, Zofran, and IV fluid hydration. The the patient reports no improvement with initial medication regimen, we will give additional morphine. Patient has been ordered for CT abdomen and pelvis to rule out pseudocyst or other acute pathology, CT is pending. 5:14 AM 05/04/2025 (Kristina CARR): The patient is CT has resulted and shows distal esophageal thickening, possibly consistent with esophagitis, recommendation for GI follow up. The patient has unchanged adrenal nodules of indeterminate etiology, no acute findings. No evidence of pseudocyst. The patient will be admitted for IV fluid hydration and pain control for pancreatitis. Admission/Observation Consideration of admission/observation: Escalation of care including admission/observation considered Lab Data MDM Lab Attestation statement: I reviewed the patient's lab results. 05/03/25 22:58 05/03/25 22:58 Labs: Lab Results 05/03/25 Range/Units 22:58 WBC 9.4 (4.8-10.8) X10*3/uL RBC 4.55 (4.20-5.50) X10*6/uL Hgb 13.3 (12.0-16.0) g/dl Hct 39.2 (37.0-47.0) % MCV 86.2 (80.0-98.0) fL MCH 29.2 (27.0-33.0) pg MCHC 33.9 (31.0-35.0) g/dl RDW 13.2 (11.0-16.0) % Plt Count 287 (160-400) X10*3/uL MPV 9.9 (9.4-12.3) fL Immature Gran % (Auto) 0.3 (0.0-0.4) % Neut % (Auto) 64.0 (45-73) % Lymph % (Auto) 28.0 (20-40) % Sanders % (Auto) 6.0 (2-11) % Eos % (Auto) 1.3 (0-4) % Baso % (Auto) 0.4 (0-2) % Lymph # (Auto) 2.6 (1.2-4.9) X10*3/uL Sanders # (Auto) 0.6 (0.1-1.2) X10*3/uL Eos # (Auto) 0.1 (0.0-0.4) X10*3/uL Baso # (Auto) 0.0 (0.0-0.2) X10*3/uL Abs Immat Gran (auto) 0.03 (0.00-0.03) X10*3/uL Absolute Neuts (auto) 6.0 (2.0-8.3) x10*3/uL Absolute Nucleated RBC 0.000 (0.0-0.012) X10*3/uL Nucleated RBC % (auto) 0.0 (0.0-0.2) /100WBC Sodium 139 (135-145) mmol/L Potassium 3.8 (3.3-5.1) mmol/L Chloride 100 (96-108) mmol/L Carbon Dioxide 29 (22-29) mmol/L Anion Gap 14 (12-20) BUN 27 H (9-16) mg/dL Creatinine 1.24 (0.5-1.4) mg/dL Estim Creat Clear Calc 54.7 Estimated GFR 46 Random Glucose 164 H (60-115) mg/dL Calcium 10.0 (8.4-10.2) mg/dL Total Bilirubin 0.4 (0.0-1.0) mg/dL AST 61 H (5-31) U/L ALT 140 H (0-31) U/L Alkaline Phosphatase 206 H (39-117) U/L Total Protein 7.6 (6.5-8.0) g/dL Albumin 4.3 (3.5-5.0) g/dL Triglycerides 153 H (<150) mg/dL Cholesterol 207 H (<200) mg/dL LDL Cholesterol, Calc 125 H (<100) mg/dL HDL Cholesterol 52 (>40) mg/dL Lipase 370 H (8-78) U/L Ethyl Alcohol 13 mg/dL Radiology Impression Discussion of test interpretation with radiology: I have reviewed the radiologist's reading. Radiologist Impression: CT abdomen and pelvis with contrast Comparison: None provided Findings: No consolidation or effusion. There is concentric distal esophageal wall thickening. Correlate clinically for esophagitis. There is a nonspecific adjacent 0.9 cm lymph node, unchanged. There is a left adrenal 2.0 x 1.9 cm mass with indeterminate attenuation. There is a right adrenal 0.9 x 0.7 cm adrenal mass with similar attenuation. These are unchanged. The gallbladder and solid organs are otherwise within normal limits. No renal stones. No bowel obstruction, pneumoperitoneum, or pneumatosis. Pelvic contents unremarkable. Normal appendix. The bones are intact. IMPRESSION: 1. Distal esophageal wall changes, possible esophagitis. Consider gastroenterology consultation for follow-up. 2. Indeterminate adrenal masses, unchanged This document has been electronically signed by: Gray Bryan MD on 05/04/2025 05:08:45 Medications Administered Discontinued Medications Generic Name Dose Route Start Last Admin Trade Name Freq PRN Reason Stop Dose Admin Sodium Chloride 1,000 mls @ 999 mls/hr 05/04/25 01:15 05/04/25 02:31 Ns IV 05/04/25 02:15 Infused .Q1H1M SHANTE Infusion Iohexol 85 ml 05/04/25 03:57 05/04/25 03:57 Iohexol 350 Mg/Ml 100 Ml Infus..Btl IV 05/04/25 03:58 85 ml ONCE ONE Administration Ketorolac Tromethamine 15 mg 05/04/25 01:06 05/04/25 01:31 Ketorolac Tromethamine 15 Mg/Ml Vial IVPUSH 05/04/25 01:07 15 mg ONCE ONE Administration Morphine Sulfate 4 mg 05/04/25 01:06 05/04/25 01:30 Morphine Sulfate 4 Mg/Ml Cartridge IVPUSH 05/04/25 01:07 4 mg ONCE ONE Administration Protocol Morphine Sulfate 4 mg 05/04/25 03:00 05/04/25 03:03 Morphine Sulfate 4 Mg/Ml Cartridge IVPUSH 05/04/25 03:01 4 mg ONCE ONE Administration Protocol Ondansetron HCl 4 mg 05/04/25 01:06 05/04/25 01:30 Ondansetron Hcl 4 Mg/2 Ml Vial IVPUSH 05/04/25 01:07 4 mg ONCE ONE Administration Discharge Plan Discharge Clinical Impression: Pancreatitis Patient Disposition: Admitted As Inpatient Print Language: Pakistani
--- NOTE | 2025-05-04 01:33 | PC.NURSE ---
Iv started and medicated per mar.
--- OUTSIDE RECORDS SUMMARY | 2025-05-04 01:41 | XMS_ITS | Clinical Summary ---
Author Organization [employer] [facility] ity Address [address] [place] [address] Care Team Providers Care Home Paraprofessional Name Role Phone Unavailable Primary Care Provider [...]
--- NOTE | 2025-05-04 02:21 | PC.NURSE ---
Notified provider BRUNO Treviño pt still reports pain. provider added additional blood work, lab notified,they will add on.
[2025-05-04 02:37] LABS: Cholesterol 207 mg/dL (<200); HDL Cholesterol 52 mg/dL (>40); Triglycerides 153 mg/dL (<150)
--- NOTE | 2025-05-04 03:05 | PC.NURSE ---
Medicated per mar for pain managment.
[2025-05-04] MEDS: iohexoL 350 MG/ML 100 ML INFUS..BTL 85 ML IV (03:57)
--- NOTE | 2025-05-04 05:29 | PM.IMHP ---
History of Present Illness Date of Service: 05/04/25 Attending physician on admission: Darryl Wise Chief Complaint: Abdominal pain Marita Simon is a 50 years old woman with past medical history significant for asthma, asthma and type 2 diabetes mellitus on insulin presents to the emergency department complaining of epigastric pain that started 5 days ago but it got worse tonight. She described the pain as as a burning sensation radiating to the right upper quadrant and back. It is associated with nausea but denied events of vomiting. She did not report any headache, palpitations, dizziness, fever or chills. She did not report any acute urinary symptoms. She denied alcohol abuse. She smoked 3 cigarettes daily and denied illicit drug use. She does take multiple medications for anxiety including doxepin, clonidine and clonazepam. Abdominal surgery history is remarkable for hysterectomy (had fibromas, endometriosis and cervical cancer). Patient was recently admitted [facility] but decided to leave [place]. She said that she has not been taking diclofenac which was recently prescribed. In the ED, she was found to have stable vital signs. Last blood pressure is 99/53. CBC is normal. There are no electrolyte imbalances. BUN is 27 and creatinine 1.24. Glucose is 164. LFTs are elevated except total bilirubin, 0.4. Triglycerides are 153. Lipase is 390. Abdominal pelvis CT scan with IV contrast showed distal esophageal wall changes, possible esophagitis and indeterminate adrenal masses, unchanged. ED Tx: 1 L bolus, ketorolac 15 mg IV, Zofran 4 mg IV, morphine 4 mg total Review of Systems Review of Systems: All 12 systems were reviewed and normal except as noted in HPI. [facility] Medical History (Updated 05/04/25 @ 06:32 by Darryl Wise MD) History of seizures Type 2 diabetes mellitus Asthma Hepatitis A Social History Household Members: Family Housing: Apartment Do you presently have visiting nurse or other home services: No Alcohol intake: former Patient Tobacco Use Status: Tobacco use Unknown Tobacco use type: Cigarette Cigarettes Per Day: 2 Years Smoked: 20 e-Cigarette/Vaping Use: Currently Using Second Hand Smoke Exposure: No Use of substances other than those prescribed or required for medical reasons: No Advance Directives: No Patient : No service: No Meds Allergies Allergy/AdvReac Type Severity Reaction Status Date / Time ciprofloxacin (From CIPRO) Allergy Intermediate RASH Verified 05/03/25 21:47 Sulfa (Sulfonamide Allergy Intermediate RASH Verified 05/03/25 21:47 Antibiotics) (SULFA (SULFONAMIDE ANTIBIOTICS)) sulfamethoxazole (From Allergy Unknown SWELLING Verified 05/03/25 21:47 SEPT) trimethoprim (From ) Allergy Unknown SWELLING Verified 05/03/25 21:47 SEAFOOD Allergy Severe ANAPHYLAXIS Uncoded 05/03/25 21:47 Active Medications: Current Medications Enoxaparin Sodium (Enoxaparin Sodium 40 Mg/0.4 Ml Syringe) 40 mg SUBCUT Q24H SHANTE Hydromorphone HCl (Hydromorphone Hcl 1 Mg/Ml Syringe) 1 mg IVPUSH Q4H PRN; Protocol PRN Reason: Pain, Severe (Pain Scale 7-10) Lactated Ringer's (Lr) 1,000 mls @ 150 mls/hr IVCONT .Q6H40M SHANTE Lactated Ringer's (Lr) 1,000 mls @ 999 mls/hr IV .Q1H1M STA Stop: 05/04/25 06:27 Ondansetron HCl (Ondansetron Hcl 4 Mg/2 Ml Vial) 4 mg IVPUSH Q8H PRN PRN Reason: Nausea and Vomiting Sodium Chloride (0.9 % Sodium Chloride Flush 3 Ml Syringe) 3 ml IVFLUSH QSHIFT SHANTE Home Medications ?Medication ?Instructions ?Recorded ?Confirmed ?Last Taken ?Type cetirizine 10 mg tablet 10 mg PO DAILY PRN allergies 09/29/24 12/10/24 09/24/24 History clonazepam 0.5 mg tablet 0.5 mg PO BID PRN Anxiety 09/29/24 12/10/24 Unknown History clonidine HCl 0.3 mg tablet 0.3 mg PO BEDTIME 09/29/24 12/10/24 09/24/24 History doxepin 100 mg capsule 100 mg PO BEDTIME 09/29/24 12/10/24 09/24/24 History empagliflozin 25 mg tablet 25 mg PO DAILY diabetes mellitus 09/29/24 12/10/24 09/24/24 History (Jardiance) lamotrigine 150 mg tablet 150 mg PO BEDTIME 09/29/24 12/10/24 09/24/24 History montelukast 10 mg tablet 10 mg PO DAILY asthma 09/29/24 12/10/24 09/24/24 History pantoprazole 40 mg tablet,delayed 40 mg PO BID@0630,1630 09/29/24 12/10/24 Unknown History release pregabalin 150 mg capsule 150 mg PO DAILY 09/29/24 12/10/24 09/24/24 History pregabalin 150 mg capsule 300 mg PO BEDTIME 09/29/24 12/10/24 09/24/24 History spironolactone 25 mg tablet 25 mg PO DAILY 09/29/24 12/10/24 09/24/24 History tramadol 50 mg tablet 50 mg PO Q12H PRN pain 09/29/24 12/10/24 Unknown History albuterol sulfate 90 mcg/actuation 2 puff inhalation Q6H PRN 12/10/24 12/10/24 Unknown History aerosol inhaler (Ventolin HFA) Shortness Of Breath Or Wheezing aspirin 81 mg tablet,delayed 81 mg PO DAILY 12/10/24 12/10/24 Unknown History release fluticasone 250 mcg-salmeterol 50 1 ea inhalation BID PRN Shortness 12/10/24 12/10/24 Unknown History mcg/dose blistr powdr for Of Breath Or Wheezing inhalation (Advair Diskus) Physical Exam Vital Signs and Narrative: Vital Signs: Last Vital Signs Temp 97.6 F 05/04/25 03:20 Pulse 81 05/04/25 03:20 Resp 14 05/04/25 03:20 BP 99/56 L 05/04/25 03:20 Pulse Ox 97 05/04/25 03:20 O2 Del Method Room Air 05/04/25 03:20 BMI result Body Mass Index 26.6 Constitutional - Awake and Alert, No apparent distress HEENT - PERRLA, EOMI Heart - S1S2, RRR, No edema Lungs - Normal lung expansion, Normal respiratory effort, No respiratory distress, CTA bilaterally Abdomen - NT / ND; +BS; No rebound or guarding Extremities - no calf tenderness bilaterally, no swelling Musculoskeletal - Normal inspection, normal ROM Skin - Warm/Dry Neurological - Alert & oriented x3. Moving all extremities spontaneously. Normal speech. Psychological - Appropriate affect Results Labs 05/03/25 22:58 05/03/25 22:58 Labs: Laboratory Results - last 24 hr 05/03/25 22:58 MCV 86.2 MCH 29.2 MCHC 33.9 RDW 13.2 Plt Count 287 MPV 9.9 Immature Gran % (Auto) 0.3 Neut % (Auto) 64.0 Lymph % (Auto) 28.0 Marion % (Auto) 6.0 Eos % (Auto) 1.3 Baso % (Auto) 0.4 Lymph # (Auto) 2.6 [place] # (Auto) 0.6 Eos # (Auto) 0.1 Baso # (Auto) 0.0 Abs Immat Gran (auto) 0.03 Absolute Neuts (auto) 6.0 Absolute Nucleated RBC 0.000 Nucleated RBC % (auto) 0.0 Anion Gap 14 Estim Creat Clear Calc 54.7 Estimated GFR 46 Random Glucose 164 H Calcium 10.0 Total Bilirubin 0.4 AST 61 H ALT 140 H Alkaline Phosphatase 206 H Total Protein 7.6 Albumin 4.3 Triglycerides 153 H Cholesterol 207 H LDL Cholesterol, Calc 125 H HDL Cholesterol 52 Lipase 370 H Ethyl Alcohol 13 Assessment and Plan (1) Acute pancreatitis: Qualifiers: Pancreatitis type: idiopathic Acute pancreatitis complication: no infection or necrosis Qualified Code(s): K85.00 - Idiopathic acute pancreatitis without necrosis or infection Status: Acute (2) Acute esophagitis: Status: Acute (3) Depression: Qualifiers: Depression Type: persistent depressive disorder Qualified Code(s): F34.1 - Dysthymic disorder Status: Inactive (4) Fibromyalgia: Status: Acute Plan Marita Simon is a 50 y/o woman with PMHx significant for GERD, pancreatitis and gastroparesis who presents to the ED with: Abdominal pain secondary to acute pancreatitis associated acute esophagitis. Etiology unclear. EtOH level = 13; pt denied alcohol abuse. Lipase higher that prior. Not taking diclofenac or Ozempic. No significant elevation of triglycerides. NPO except for medications. Check abdominal ultrasound to assess for cholelithiasis and/or cholecystitis. Continue IV fluids. Pain control and antiemetic therapy as needed. Protonix 40 mg IV twice daily. Check CRP. Evaluated by DR. Fox in November of this year who check for IgG4 and tissue transglutaminase IgA, bolus unremarkable. Elevated LFTs. Likely secondary to hepatic steatosis. Check hepatitis panel and GGT. Continue to monitor. Type 2 diabetes. BG checks every 6 hours while NPO. Insulin sliding scale. Depression/anxiety/PTSD. Continue home meds. Fibromyalgia. Continue Lyrica. Hold trauma as the patient has been receiving Dilaudid. History of seizure. Continue Lamictal. Intermittent asthma/COPD. Continue home inhalers. Albuterol nebs as needed. Code status: Full DVT prophylaxis: Lovenox Patient will need hospitalization for at least 2 midnights for acute pancreatitis and esophagitis therapy with with IV pain meds IV anterior meds and IV fluids. Quality Stroke Does the patient have a stroke diagnosis?: No VTE Prior VTE?: No VTE Risk Level:: Medical - moderate - high VTE Device Contraindication: Treatment Not Indicated VTE Drug Contraindication: N/A - Med Ordered
[2025-05-04] MEDS: Lactated Ringers 1,000 ML 999 ML IV (05:32)
--- NOTE | 2025-05-04 05:45 | PC.NURSE ---
medicated per mar, Hospitalist into assess pt.
--- NOTE | 2025-05-04 05:53 | PC.NURSE ---
medicated per mar.
[2025-05-04 06:15] LABS: MANUAL DIFF FLAG NO
[2025-05-04] MEDS: Lactated Ringers 1,000 ML 150 ML IVCONT ×2 (06:19→13:36)
[2025-05-04 06:22] LABS: Hematocrit 37.3 % (37.0-47.0); Hemoglobin 12.4 g/dl (12.0-16.0); Imm Gran Abs Auto 0.03 X10*3/uL (0.00-0.03); Imm Gran Pct Auto 0.4 % (0.0-0.4); Lymphocytes Absolute Auto 2.5 X10*3/uL (1.2-4.9); Mean Corpuscular HGB Conc 33.2 g/dl (31.0-35.0); Mean Corpuscular Hemoglobin 28.9 pg (27.0-33.0); Mean Corpuscular Volume 86.9 fL (80.0-98.0); NRBC Abs Auto 0.000 X10*3/uL (0.0-0.012); NRBC Pct Auto 0.0 /100WBC (0.0-0.2); Platelet Count 279 X10*3/uL (160-400); Red Blood Count 4.29 X10*6/uL (4.20-5.50); White Blood Count 7.8 X10*3/uL (4.8-10.8)
--- NOTE | 2025-05-04 06:25 | PC.NURSE ---
iv fluids started.
[2025-05-04] MEDS: diazePAM 10 MG/2 ML CARTRIDGE 2.5 MG IVPUSH (06:29)
[2025-05-04 06:52] LABS: Alanine Aminotransferase 112 U/L (0-31); Albumin Level 3.7 g/dL (3.5-5.0); Alkaline Phosphatase 172 U/L (39-117); Anion Gap 12 (12-20); Aspartate Amino Transferase 48 U/L (5-31); Blood Urea Nitrogen 22 mg/dL (9-16); Carbon Dioxide 27 mmol/L (22-29); Chloride 103 mmol/L (96-108); Creatinine Clr Calc Pharmacy 79.9; Estimated Glomerular Filt Rate > 60; Magnesium 1.9 mg/dL (1.6-2.6); Potassium 3.3 mmol/L (3.3-5.1); Sodium 139 mmol/L (135-145); Total Protein 6.7 g/dL (6.5-8.0)
[2025-05-04 07:00] LABS: Calcium 9.3 mg/dL (8.4-10.2)
[2025-05-04 07:07] LABS: HBS Num1 1.59 mIU/mL (0-7.99); HBc Num1 0.07 S/CO (0.00-0.79); HBsAGNum1 0.46 S/CO (0.00-0.99); Hepatitis A Antibody IgM 0.20 Index (0-0.79); Hepatitis B Surface Antigen Negative (Negative); ~HepC Num1 0.08 S/CO (0.00-0.79); ~Hepatitis A Antibody IgM Nonreactive (Nonreactive); ~Hepatitis B Surface Antibody NONREACTIVE (Nonreactive); ~Hepatitis C Antibody Nonreactive (Nonreactive)
[2025-05-04 07:18] LABS: Gamma Glutamyl Transpeptidase 646 U/L (7-33)
[2025-05-04 08:09] LABS: Glucose, Whole Blood 72 mg/dL (60-115)
--- NOTE | 2025-05-04 08:35 | PM.EVENT ---
Event Note Date of Service: 05/04/25 Event Note: Patient seen and examined by hospitalist service this morning Seen seen and examined again Abdominal pain similar Physical exam and assessment and plan as per H and P-same. Seen by GI: has biliary panc- there?s some sludge on us GB images. Would recommend surgery consult for interval rod Time Spent With Patient Time: Total time managing care of this patient today ____ minutes.
--- NOTE | 2025-05-04 08:58 | PHA.MEDREC ---
Addendum entered by Sonido Patel RPh 05/04/25 10:49: MED REC REVIEWED BY [facility] Original Note: Pharmacy Consult ? Medication Reconciliation Pharmacy has completed the medication reconciliation. Spoke with pt, utilizing knitter machine services (Shaila) and she was able to confirm her medications. Pt states she still has Tramadol 50mg tabs as needed for pain; pt takes with her Pregabalin, LF 02/21 of 30 days, Clonidine 0.3 and Doxepin 100mg tabs she takes at night; LF 03/05 for 30 days, Pregabalin 150mg tabs 1 tab (15mg) in the Am and 2 tabs (300mg) at bedtime; LF 03/06 for 30 days and she has Lamotrigine 25 mg tabs and takes 2 tabs (50mg) at bedtime; LF 03/15 for 30 days. Pt confirmed she injects 85 units of Lantus at bedtime and uses Insulin Lispro TIDPC; confirmed with pt to makes sure she doesn't test before meals and pt stated like I said before I test after meals and inject per the sliding scale.
[2025-05-04 13:53] LABS: Glucose, Whole Blood 65 mg/dL (60-115)
--- NOTE | 2025-05-04 14:03 | MHC.CM.PN ---
pt lives with family is independent has own ride home d plan home n/s
--- NOTE | 2025-05-04 15:04 | PM.GICN ---
History of Present Illness Data of Consult Service Date: 05/04/25 Requesting physician: Meron Jeff Primary Care Provider: Hanh Mcdonough NP HPI Reason for consult: pancreatitis This is a 50-year-old female with past medical history of hyperlipidemia, anxiety, type 2 diabetes, gastroparesis, asthma, who presented to the hospital for acute interstitial pancreatitis. Gastroenterology has been consulted for question of etiology. Patient seen at bedside with son present at bedside. Seen with the help of manufacturing scheduler. Reports onset of waxing and waning abdominal pain postprandially a week ago, 2 days ago, pain became severe, intense, and unrelenting. This was associated with nausea, vomiting and chills. Pain radiates to her back. Reports symptoms are reminiscent of pain earlier this year. Labs reviewed, has elevated LFTs. Ultrasound abdomen personally reviewed, and appears to have small amount of layering sludge. Patient does not report any alcohol use. No new medication in the last 3 months. Pain responsive to medication. Patient reports that has not not had any urge to urinate since last night. Appetite is still low. Review of Systems Review of Systems: Yes all other systems are reviewed and are negative [facility] Past Medical History Medical History (Updated 05/07/25 @ 10:57 by Thomas Granados MD) History of seizures Type 2 diabetes mellitus Asthma Hepatitis A Social History Social History Household Members: Family Housing: Apartment Do you presently have visiting nurse or other home services: No (working on getting a baby doctor) Alcohol intake: former Patient Tobacco Use Status: Tobacco use Unknown Tobacco use type: Cigarette Cigarettes Per Day: 3 Years Smoked: 20 e-Cigarette/Vaping Use: Currently Using Second Hand Smoke Exposure: No service: No Meds Allergies Allergy/AdvReac Type Severity Reaction Status Date / Time ciprofloxacin (From CIPRO) Allergy Intermediate RASH Verified 05/03/25 21:47 Sulfa (Sulfonamide Allergy Intermediate RASH Verified 05/03/25 21:47 Antibiotics) (SULFA (SULFONAMIDE ANTIBIOTICS)) sulfamethoxazole (From Allergy Unknown SWELLING Verified 05/03/25 21:47 SEPTRA) trimethoprim (From SEPTRA) Allergy Unknown SWELLING Verified 05/03/25 21:47 SEAFOOD Allergy Severe ANAPHYLAXIS Uncoded 05/03/25 21:47 Active Medications: Current Medications Acetaminophen/Butalbital/Caffeine (Butalb/Acetamin/Caff 50/325/40 Tablet) 1 tab PO Q6H PRN PRN Reason: haeadace Albuterol Sulfate (Albuterol Sulfate (0.083%) 2.5 Mg/3 Ml Vial.Neb) 2.5 mg INHALE Q3H PRN PRN Reason: Shortness of Breath/Wheezing Albuterol Sulfate (Albuterol Sulfate 90 Mcg 8 Gm Inhaler) 2 puff INHALE Q6H PRN PRN Reason: Shortness Of Breath Or Wheezing Clonazepam (Clonazepam 0.5 Mg Tablet) 0.5 mg PO BID PRN PRN Reason: Anxiety Clonidine HCl (Clonidine Hcl 0.1 Mg Tablet) 0.3 mg PO BEDTIME SHANTE; Protocol Dextrose (Dextrose 50 % 25 Gm/50 Ml Syringe) 25 gm IVPUSH Q15M PRN; Protocol PRN Reason: per Hypoglycemia Standing Ord. Diazepam (Diazepam 10 Mg/2 Ml Cartridge) 2.5 mg IVPUSH Q6H PRN PRN Reason: Alcohol Withdrawal Last Admin: 05/04/25 06:29 Dose: 2.5 mg Enoxaparin Sodium (Enoxaparin Sodium 40 Mg/0.4 Ml Syringe) [address] [facility] Last Admin: 05/04/25 10:49 Dose: 40 mg Fluticasone Propionate (Fluticasone Propionate Nasal 16 Gm [place]) 1 spray NOSTRIL-B BID PRN PRN Reason: allergies Glucose (Glucose Gel 15 Gm Gel..Gram.) 15 gm PO Q15M PRN; Protocol PRN Reason: per Hypoglycemia Standing Ord. Hydromorphone HCl (Hydromorphone Hcl 1 Mg/Ml Syringe) 1 mg IVPUSH Q4H PRN; Protocol PRN Reason: Pain, Severe (Pain Scale 7-10) Last Admin: 05/04/25 10:55 Dose: 1 mg Dextrose/Sodium Chloride (D5ns) 1,000 mls @ 100 mls/hr IVCONT .Q10H SHANTE Last Admin: 05/04/25 15:04 Dose: 100 mls/hr Insulin Human Lispro (Insulin Lispro 100 Unit/Ml 3 Ml Vial) 0 unit SUBCUT QIDACHS SHANTE; Protocol Last Admin: 05/04/25 11:14 Dose: Not Given Lamotrigine (Lamotrigine 25 Mg Tablet) [address] [facility] Montelukast Sodium (Montelukast Sodium 10 Mg Tablet) [address] [facility] Non-Formulary Medication (Doxepin) [address] [facility] Non-Formulary Medication (Glucagon [Glucagon Emergency Kit (Human)]) 1 mg IM Q20M PRN PRN Reason: Hypoglycemia Non-Formulary Medication (Pantoprazole) 40 mg PO BID@0630,1630 [facility] Ondansetron HCl (Ondansetron Hcl 4 Mg/2 Ml Vial) 4 mg IVPUSH Q8H PRN PRN Reason: Nausea and Vomiting Pantoprazole Sodium (Pantoprazole Sodium 40 Mg/10 Ml Vial) [address] [facility] Pregabalin (Pregabalin 150 Mg Capsule) [address] [facility] Pregabalin (Pregabalin 150 Mg Capsule) [address] [facility] Sodium Chloride (0.9 % Sodium Chloride Flush 3 Ml Syringe) [address] [facility] Last Admin: 05/04/25 08:31 Dose: Not Given Home Medications ?Medication ?Instructions ?Recorded ?Confirmed ?Last Taken ?Type clonazepam 0.5 mg tablet 0.5 mg PO BID PRN Anxiety 09/29/24 05/04/25 Unknown History clonidine HCl 0.3 mg tablet 0.3 mg PO BEDTIME 09/29/24 05/04/25 05/02/25 History doxepin 100 mg capsule 100 mg PO BEDTIME 09/29/24 05/04/25 05/02/25 History montelukast 10 mg tablet 10 mg PO DAILY asthma 09/29/24 05/04/25 05/02/25 History pantoprazole 40 mg tablet,delayed 40 mg PO BID@0630,1630 09/29/24 05/04/25 05/02/25 History release pregabalin 150 mg capsule 150 mg PO DAILY 09/29/24 05/04/25 05/02/25 History pregabalin 150 mg capsule 300 mg PO BEDTIME 09/29/24 05/04/25 05/02/25 History tramadol 50 mg tablet 50 mg PO Q12H PRN pain 09/29/24 05/04/25 Unknown History albuterol sulfate 90 mcg/actuation 2 puff inhalation Q6H PRN 12/10/24 05/04/25 Unknown History aerosol inhaler (Ventolin HFA) Shortness Of Breath Or Wheezing fluticasone propionate 50 1 spray intranasal BID PRN 05/04/25 05/04/25 Unknown History mcg/actuation nasal allergies spray,suspension glucagon 1 mg solution for 1 mg IM Q20M PRN Hypoglycemia 05/04/25 05/04/25 Unknown History injection (Glucagon Emergency Kit) insulin glargine 100 unit/mL (3 85 unit subcut BEDTIME 05/04/25 05/04/25 05/02/25 History mL) subcutaneous pen (Lantus Solostar U-100 Insulin) insulin lispro 100 unit/mL See Protocol subcut TIDWM 05/04/25 05/04/25 05/02/25 History subcutaneous pen lamotrigine 25 mg tablet 50 mg PO BEDTIME 05/04/25 05/04/25 05/02/25 History Physical Exam Exam: Exam: Middle-aged female Nonicteric Abdomen soft, exquisitely tender, nondistended No overt respiratory distress No peripheral edema Vital Signs: Vital Signs: Last Vital Signs Temp 96.9 F 05/04/25 13:59 Pulse 85 05/04/25 13:59 Resp 16 05/04/25 13:59 BP 135/67 05/04/25 13:59 Pulse Ox 98 05/04/25 13:59 O2 Del Method Room Air 05/04/25 13:59 BMI result Body Mass Index 26.6 Results Labs 05/05/25 04:19 05/06/25 10:46 Labs: Short CBC 05/03/25 05/04/25 Range/Units 22:58 05:56 WBC 9.4 7.8 (4.8-10.8) X10*3/uL Hgb 13.3 12.4 (12.0-16.0) g/dl Hct 39.2 37.3 (37.0-47.0) % Plt Count 287 279 (160-400) X10*3/uL BMP 05/03/25 05/04/25 22:58 05:56 Sodium 139 139 Potassium 3.8 3.3 Chloride 100 103 Carbon Dioxide 29 27 BUN 27 H 22 H Creatinine 1.24 0.85 Calcium 10.0 9.3 D Liver Function 10/02/25 10/03/25 Range/Units 22:58 05:56 Total Bilirubin 0.4 0.4 (0.0-1.0) mg/dL GGT 646 H (7-33) U/L AST 61 H 48 H (5-31) U/L ALT 140 H 112 H (0-31) U/L Alkaline Phosphatase 206 H 172 H (39-117) U/L Albumin 4.3 3.7 (3.5-5.0) g/dL Assessment and Plan (1) Acute pancreatitis: Qualifiers: Pancreatitis type: idiopathic Acute pancreatitis complication: no infection or necrosis Qualified Code(s): K85.00 - Idiopathic acute pancreatitis without necrosis or infection Status: Acute (2) Elevated liver function tests: Status: Inactive (3) Acute esophagitis: Status: Acute Plan Has acute interstitial pancreatitis likely secondary to biliary pancreatitis given elevated LFTs and a small amount of sludge noted on ultrasound abdomen on personal review of the images. Patient also provides a background history consistent with biliary colic. Other differentials include pain divisum. No hypercalcemia noted. Triglycerides not exceptionally elevated. IgG 4 normal from previous workup. Alcoholic pancreatitis less likely given history. Patient remains hemoconcentrated, and lack of urine output in 12 hours as concerning. In terms of esophagitis, likely has erosive esophagitis in the setting of frequent vomiting. Plan: - 1L LR bolus now followed by 150 cc/h x 24h - Monitor I/Os - Clear liquid diet - advance to low fat diet as tolerated - Serial abd exams - Repeat CT abd with contrast if worsening abd s/sx or unable to progress diet over the next 48h - Monitor bloog sugars and keep BG <180 to avoid local complications/infection risk 2/2 hyperglycemia - Surgery consultation for ? indication of interval CCY - Would also recommend MRI panc protocol in 6-8 weeks as outpatient - Protonix 40 mg IV BID for esophagitis - anti-secretory therapy will also be helpful to decrease pancreatic stimulation Thank you for allowing me to participate in her care. Please do not hesitate to reach out for questions or concerns. Procedures Date of Service Date of Service: 05/04/25
--- NOTE | 2025-05-04 16:48 | PC.NURSE ---
Addendum entered by Swetha Alexandra RN 05/04/25 18:29: pt OOB to BR, voided 600ml yellow urine, post void bladder scan obtained, 405ml. Dr Jeff aware. Original Note: pt voided unknown amount in toilet, bladder scanned post void. Bladder scan showed 712ml. Dr Jeff aware, straight cath ordered. Pt refusing Straight cath. Dr Jeff aware.
[2025-05-04 16:50] LABS: Glucose, Whole Blood 104 mg/dL (60-115)
[2025-05-04 20:01] LABS: Glucose, Whole Blood 126 mg/dL (60-115)
--- NOTE | 2025-05-04 21:32 | P.CONGS_ITS ---
History of Present Illness Consult details Consult date: 05/04/25 Requesting physician: Meron Jeff Narrative: Marita Simon is a 50 years old woman with past medical history significant for asthma, asthma and type 2 diabetes mellitus on insulin presents to the emergency department complaining of epigastric pain that started 5 days ago but it got worse the night of her admission. Pain is burning sensation radiating towards her back. It seems that she was admitted to [facility] but left there AMA and came to [place] that is because this is closer to home. Here her lipase was elevated in the [address] scan showed findings consistent with pancreatitis. Her LFTs were also elevated not as much as they have been in the past. She has had pancreatitis in the past lipase was [address] was seen by Dr[address] Fox earlier this year in November here and there was question whether her pancreatitis was secondary to her use of Ozempic versus biliary At the time ultrasound of the right upper quadrant and not reveal any gallstones and her common bile duct was not significantly enlarged. On this presentation no gallstones are once again seen. 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 Imaging done again does not reveal obvious distended common bile duct or stones in the gallbladder PMFSH Past Medical History Medical History (Updated 05/04/25 @ 06:32 by Darryl Wise MD) History of seizures Type 2 diabetes mellitus Asthma Hepatitis A Social History Social History Household Members: Family Housing: Apartment Do you presently have visiting nurse or other home services: No (working on getting a manager rail) Alcohol intake: former Patient Tobacco Use Status: Tobacco use Unknown Tobacco use type: Cigarette Cigarettes Per Day: 3 Years Smoked: 20 e-Cigarette/Vaping Use: Currently Using Second Hand Smoke Exposure: No service: No Meds Allergies Allergy/AdvReac Type Severity Reaction Status Date / Time ciprofloxacin (From CIPRO) Allergy Intermediate RASH Verified 05/03/25 21:47 Sulfa (Sulfonamide Allergy Intermediate RASH Verified 05/03/25 21:47 Antibiotics) (SULFA (SULFONAMIDE ANTIBIOTICS)) sulfamethoxazole (From Allergy Unknown SWELLING Verified 05/03/25 21:47 SEPTRA) trimethoprim (From SEPTRA) Allergy Unknown SWELLING Verified 05/03/25 21:47 SEAFOOD Allergy Severe ANAPHYLAXIS Uncoded 05/03/25 21:47 Active Medications: Current Medications Acetaminophen/Butalbital/Caffeine (Butalb/Acetamin/Caff 50/325/40 Tablet) 1 tab PO Q6H PRN PRN Reason: haeadace Albuterol Sulfate (Albuterol Sulfate (0.083%) 2.5 Mg/3 Ml Vial.Neb) 2.5 mg INHALE Q3H PRN PRN Reason: Shortness of Breath/Wheezing Albuterol Sulfate (Albuterol Sulfate 90 Mcg 8 Gm Inhaler) 2 puff INHALE Q6H PRN PRN Reason: Shortness Of Breath Or Wheezing Clonazepam (Clonazepam 0.5 Mg Tablet) 0.5 mg PO BID PRN PRN Reason: Anxiety Clonidine HCl (Clonidine Hcl 0.1 Mg Tablet) 0.3 mg PO BEDTIME [facility]; Protocol Last Admin: 05/04/25 21:10 Dose: 0.3 mg Dextrose (Dextrose 50 % 25 Gm/50 Ml Syringe) 25 gm IVPUSH Q15M PRN; Protocol PRN Reason: per Hypoglycemia Standing Ord. Diazepam (Diazepam 10 Mg/2 Ml Cartridge) 2.5 mg IVPUSH Q6H PRN PRN Reason: Alcohol Withdrawal Last Admin: 05/04/25 06:29 Dose: 2.5 mg Doxepin HCl (Doxepin Hcl 25 Mg Capsule) 100 mg PO BEDTIME [facility] Last Admin: 05/04/25 21:10 Dose: 100 mg Enoxaparin Sodium (Enoxaparin Sodium 40 Mg/0.4 Ml Syringe) 40 mg SUBCUT Q24H [facility] Last Admin: 05/04/25 10:49 Dose: 40 mg Fluticasone Propionate (Fluticasone Propionate Nasal 16 Gm [place]) 1 spray NOSTRIL-B BID PRN PRN Reason: allergies Glucagon (Glucagon Hcl 1 Mg Vial) 1 mg IM Q20M PRN PRN Reason: Hypoglycemia Glucose (Glucose Gel 15 Gm Gel..Gram.) 15 gm PO Q15M PRN; Protocol PRN Reason: per Hypoglycemia Standing Ord. Hydromorphone HCl (Hydromorphone Hcl 1 Mg/Ml Syringe) 1 mg IVPUSH Q4H PRN; Protocol PRN Reason: Pain, Severe (Pain Scale 7-10) Last Admin: 05/04/25 17:37 Dose: 1 mg Dextrose/Sodium Chloride (D5ns) 1,000 mls @ 100 mls/hr IVCONT .Q10H [facility] Last Admin: 05/04/25 15:04 Dose: 100 mls/hr Insulin Human Lispro (Insulin Lispro 100 Unit/Ml 3 Ml Vial) 0 unit SUBCUT QIDACHS [facility]; Protocol Last Admin: 05/04/25 21:07 Dose: Not Given Lamotrigine (Lamotrigine 25 Mg Tablet) 50 mg PO BEDTIME [facility] Last Admin: 05/04/25 21:10 Dose: 50 mg Montelukast Sodium (Montelukast Sodium 10 Mg Tablet) 10 mg PO DAILY [facility] Omeprazole (Omeprazole 20 Mg Capsule.Dr) 20 mg PO BID@0630,1630 [facility] Ondansetron HCl (Ondansetron Hcl 4 Mg/2 Ml Vial) 4 mg IVPUSH Q8H PRN PRN Reason: Nausea and Vomiting Pantoprazole Sodium (Pantoprazole Sodium 40 Mg/10 Ml Vial) 40 mg IVPUSH Q12H [facility] Last Admin: 05/04/25 21:09 Dose: 40 mg Pregabalin (Pregabalin 150 Mg Capsule) 150 mg PO DAILY [facility] Pregabalin (Pregabalin 150 Mg Capsule) 300 mg PO BEDTIME [facility] Last Admin: 05/04/25 21:10 Dose: 300 mg Sodium Chloride (0.9 % Sodium Chloride Flush 3 Ml Syringe) 3 ml IVFLUSH QSHIFT [facility] Last Admin: 05/04/25 17:30 Dose: Not Given Tamsulosin HCl (Tamsulosin Hcl 0.4 Mg Capsule) 0.4 mg PO DAILY [facility] Home Medications ?Medication ?Instructions ?Recorded ?Confirmed ?Last Taken ?Type clonazepam 0.5 mg tablet 0.5 mg PO BID PRN Anxiety 05/04/25 Unknown History clonidine HCl 0.3 mg tablet 0.3 mg PO BEDTIME 09/29/24 05/04/25 05/02/25 History doxepin 100 mg capsule 100 mg PO BEDTIME 09/29/24 1 05/02/25 History montelukast 10 mg tablet 10 mg PO DAILY asthma 05/04/25 05/02/25 History pantoprazole 40 mg tablet,delayed 40 mg PO BID@0630,16 30 09/29/24 05/04/25 05/02/25 History release pregabalin 150 mg capsule 150 mg PO DAILY 09/29/2410/2405/02/25 History pregabalin 150 mg capsule 300 mg PO BEDTIME 09/29/24 1 05/02/25 History tramadol 50 mg tablet 50 mg PO Q12H PRN pain 09/2905/04/25 Unknown History albuterol sulfate 90 mcg/actuation 2 puff inhalation Q 6H PRN 12/10/24 05/04/25 Unknown History aerosol inhaler (Ventolin HFA) Shortness Of Breath Or Wheezing fluticasone propionate 50 1 spray intranasal BID PRN 1 05/04/25 Unknown History mcg/actuation nasal allergies spray,suspension glucagon 1 mg solution for 1 mg IM Q20M PRN Hypoglycem ia 05/04/25 05/04/25 Unknown History injection (Glucagon Emergency Kit) insulin glargine 100 unit/mL (3 85 unit subcut BEDTIME 05/04/25 05/04/25 05/02/25 History mL) subcutaneous pen (Lantus Solostar U-100 Insulin) insulin lispro 100 unit/mL See Protocol subcut TIDWM 1 05/04/25 05/02/25 History subcutaneous pen lamotrigine 25 mg tablet 50 mg PO BEDTIME 05/04/2505/02/25 History Physical Exam 2 Vital Signs: Vital Signs: Last Vital Signs Temp 98.2 F 05/04/25 19:21 Pulse 86 05/04/25 19:21 Resp 18 05/04/25 19:21 BP 144/77 H 05/04/25 21:10 Pulse Ox 97 05/04/25 19:21 O2 Del Method Room Air 05/04/25 19:21 BMI result Body Mass Index 26.6 Const: General: cooperative Nutritional Appearance: well nourished GI: Other: Abdomen is soft but she is tender diffusely with some mild guarding no rebound no peritoneal signs active bowel sounds Results Labs 05/04/25 05:56 05/04/25 05:56 Labs: Abnormal lab results 05/03/25 05/04/25 05/04/25 Range/Units 22:58 05:56 19:57 BUN 27 H 22 H (9-16) mg/dL POC Glucose 126 H (60-115) mg/dL Random Glucose 164 H (60-115) mg/dL GGT 646 H (7-33) U/L AST 61 H 48 H (5-31) U/L ALT 140 H 112 H (0-31) U/L Alkaline Phosphatase 206 H 172 H (39-117) U/L C-Reactive Protein 4.08 H (< or = 0.50) mg/dL Triglycerides 153 H (<150) mg/dL Cholesterol 207 H (<200) mg/dL LDL Cholesterol, Calc 125 H (<100) mg/dL Lipase 370 H (8-78) U/L Short CBC 05/03/25 05/04/25 Range/Units 22:58 05:56 WBC 9.4 7.8 (4.8-10.8) X10*3/uL Hgb 13.3 12.4 (12.0-16.0) g/dl Hct 39.2 37.3 (37.0-47.0) % Plt Count 287 279 (160-400) X10*3/uL [facility] 05/03/25 05/04/25 22:58 05:56 Sodium 139 139 Potassium 3.8 3.3 Chloride 100 103 Carbon Dioxide 29 27 BUN 27 H 22 H Creatinine 1.24 0.85 Calcium 10.0 9.3 D Liver Function 05/03/25 05/04/25 Range/Units 22:58 05:56 Total Bilirubin 0.4 0.4 (0.0-1.0) mg/dL GGT 646 H (7-33) U/L AST 61 H 48 H (5-31) U/L ALT 140 H 112 H (0-31) U/L Alkaline Phosphatase 206 H 172 H (39-117) U/L Albumin 4.3 3.7 (3.5-5.0) g/dL All other labs normal. Imaging Abdomen CT scan report/results: report reviewed and image reviewed CT scan - pelvis: report reviewed and image reviewed Additional studies: MR#: [id number] : 1975 Acct:[id number] Age/Sex: 50 / F ADM Date: 05/04/25 Loc: [facility]: Meron Jeff MD Ordering Physician: Darryl George MD Date of Service: 05/04/25 Procedure(s): US abdomen limited Accession Number(s): [id number] cc: Hahn Mcdonough NP; Darryl George MD~ Reason for Exam: RUQ,r/o cholelithiasis/cholecystitis EXAMINATION: US ABDOMEN LIMITED CLINICAL INFORMATION: Right upper quadrant pain.. COMPARISON: December 10, 2024. Correlated to CT dated May 04, 2025. TECHNIQUE: Real-time ultrasound of the gallbladder is seen grayscale technique. FINDINGS: Gallbladder is fluid-filled nondistended. No pericholecystic fluid collection or gallbladder wall thickening. Common bile duct measures 5 mm. US/US abdomen limited IMPRESSION: No cholelithiasis or gross choledocholithiasis. 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 There is concentric distal esophageal wall thickening. Correlate clinically for esophagitis. There is a nonspecific adjacent 0.9 cm lymph node, unchanged. There is a left adrenal 2.0 x 1.9 cm mass with indeterminate attenuation. There is a right adrenal 0.9 x 0.7 cm adrenal mass with similar attenuation. These are unchanged. The gallbladder and solid organs are otherwise within normal limits. No renal stones. No bowel obstruction, pneumoperitoneum, or pneumatosis. Pelvic contents unremarkable. Normal appendix. The bones are intact. IMPRESSION: 1. Distal esophageal wall changes, possible esophagitis. Consider gastroenterology consultation for follow-up. 2. 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 The liver is normal in size with increase of echogenicity. There is no intrahepatic bile duct dilatation. The common duct is 5.6 mm in diameter. The gallbladder is normal. There is no sonographic [place] sign. IMPRESSION: Hepatic steatosis. Otherwise, unremarkable examination. This document has been electronically signed by: Moses Angel MD on 12/10/2024 17:13:52 Dictated By: Moses Angel MD Signed By: <Electronically signed by Moses Angel MD in OV> 12/10/241714 DD/ 12 TD/TT: 12/10/241712 Meat Washer: Assessment and Plan (1) Pancreatitis: Qualifiers: Acute pancreatitis complication: unspecified Chronicity: acute P ancreatitis type: unspecified pancreatitis type Qualified Code(s): K85.90 - Acute pancreatitis without necrosis or infection, unspecified Status: Acute Plan 50-year-old female with pancreatitis 2nd episode this year question true etiology. If patient is not drinking then the next most common pathology would be biliary in nature. Here her LFTs are elevated and she does complain of this epigastric right upper quadrant pain and tenderness with eating occasionally. At this point plan is to continue with treating her pancreatitis primarily in a conservative fashion. Patient could benefit from laparoscopic cholecystectomy to remove her gallbladder once her pancreatitis resolves as in her situation I think her risks are relatively low and the benefit is moderate if we determine that this biliary pancreatitis. We will discuss with the GI team. Procedures Date of Service Date of Service: 05/05/25
--- NOTE | 2025-05-04 22:26 | PC.NURSE ---
2130; Patient oob to bathroom, voided 250 mls dark yellow urine. PVR 473 mls. Patient reports no urge to urinate further. Per order, straight catheterization performed with 500mls concentrated urine output, patient tolerated well. DTV at 0400.
[2025-05-05] VITALS (7 sets, daily range): BP systolic 90–132; BP diastolic 54–66; PULSE 76–88; RESP 16–20; TEMP 36.1–37; O2SAT 94–98
[2025-05-05 03:53] LABS: Glucose, Whole Blood 159 mg/dL (60-115)
[2025-05-05 04:24] LABS: MANUAL DIFF FLAG NO
[2025-05-05 04:25] LABS: Hematocrit 34.1 % (37.0-47.0); Hemoglobin 11.7 g/dl (12.0-16.0); Imm Gran Abs Auto 0.02 X10*3/uL (0.00-0.03); Imm Gran Pct Auto 0.4 % (0.0-0.4); Lymphocytes Absolute Auto 1.8 X10*3/uL (1.2-4.9); Mean Corpuscular HGB Conc 34.3 g/dl (31.0-35.0); Mean Corpuscular Hemoglobin 29.5 pg (27.0-33.0); Mean Corpuscular Volume 85.9 fL (80.0-98.0); NRBC Abs Auto 0.000 X10*3/uL (0.0-0.012); NRBC Pct Auto 0.0 /100WBC (0.0-0.2); Platelet Count 249 X10*3/uL (160-400); Red Blood Count 3.97 X10*6/uL (4.20-5.50); White Blood Count 5.6 X10*3/uL (4.8-10.8)
[2025-05-05 04:26] LABS: Venous Blood Gas Refer to POC result
--- NOTE | 2025-05-05 04:28 | P.EN_ITS ---
Event Note Date of Service: 05/05/25 Event Note: 3:50 am - contacted to notify that patient is minimally responsive, vital signs and blood glucose okay. 4:05 am - evaluate patient, lethargic, open eyes to painful stimuli. She is moaning. Cardiopulmonary exam benign. Abdominal exam remarkable for tenderness to palpation and guarding. Narcan 0.4 mg IV given as she is on Dilaudid and patient is now more awake. Plan: -Hold some sedative including doxepin, Lyrica, clonidine and clonazepam. I am suspecting that her mental changes are secondary to polypharmacy in the setting of fatty liver. -Obtain stat labs including CBC, CMP, ammonia and venous blood gas. -Obtain head CT scan without IV contrast to assess for acute intracranial abnormalities. -Transfer to [employer] for close monitoring. Time Spent With Patient Time: Total time managing care of this patient today ____ minutes.
[2025-05-05 04:29] LABS: VBG HCO3 28 mmol/L (22-26); VBG O2 % Saturation 70.0 %
[2025-05-05 04:34] LABS: Ammonia 24 umol/L (13-55)
[2025-05-05 04:43] LABS: Alanine Aminotransferase 87 U/L (0-31); Albumin Level 3.2 g/dL (3.5-5.0); Alkaline Phosphatase 137 U/L (39-117); Anion Gap 9 (12-20); Aspartate Amino Transferase 45 U/L (5-31); Blood Urea Nitrogen 11 mg/dL (9-16); Calcium 8.1 mg/dL (8.4-10.2); Carbon Dioxide 27 mmol/L (22-29); Chloride 108 mmol/L (96-108); Creatinine Clr Calc Pharmacy 104.5; Estimated Glomerular Filt Rate > 60; Lipase 83 U/L (8-78); Potassium 3.9 mmol/L (3.3-5.1); Sodium 140 mmol/L (135-145); Total Protein 6.0 g/dL (6.5-8.0)
--- NOTE | 2025-05-05 05:31 | PC.NURSE ---
LIFE INSURANCE SPECIALIST notified me of patient with decreased responsiveness. BP lower but stable, POC 159. Patient would briefly open eyes but was not answering questions like what is your name or where are you , when asked in Grenadian and Israeli. Patient is mostly Grenadian speaking with some Israeli. LIFE INSURANCE SPECIALIST in room to translate. This is a change from when I assessed patient at midnight who had eyes open when I entered the room at the time and was following directions and answering. Nursing Measurer notified and MD called, both of which came to the bedside. Narcan x 1 was given with some result. Labs ordered. Patient was transported to CT and radiology by myself and Measurer. Report given to JENNA Palacios and pt transported to med/tele.
[2025-05-05 07:47] LABS: Glucose, Whole Blood 182 mg/dL (60-115)
--- NOTE | 2025-05-05 08:26 | P.PNIM_ITS ---
Subjective Subjective Date of Service: 05/05/25 Interval History: pancreatitis Review of Systems overnight Events noted-patient was more sleepy. This morning-seems more Review of Systems: Yes all other systems are reviewed and are negative Physical Exam 2 Exam: Exam: Appearance: Alert.? Oriented X3.? cvs: rrr, [id number] . res: clear to auscultation ,no rhonchii or wheezing abd: no rebound or guarding ,nt, bs present. ext pulses present , no cyanosis. neuro: axo3 , nonfocal. Vital Signs: Vital Signs: Last Vital Signs Temp 97.2 F 05/05/25 08:00 Pulse 76 05/05/25 08:00 Resp 17 05/05/25 08:00 BP 90/55 L 05/05/25 08:00 Pulse Ox 97 05/05/25 08:00 O2 Del Method Room Air 05/05/25 08:00 BMI result Body Mass Index 26.6 Objective Data Active Medications Acetaminophen/Butalbital/Caffeine (Butalb/Acetamin/Caff 50/325/40 Tablet) 1 tab PO Q6H PRN PRN Reason: haeadace Albuterol Sulfate (Albuterol Sulfate (0.083%) 2.5 Mg/3 Ml Vial.Neb) 2.5 mg INHALE Q3H PRN PRN Reason: Shortness of Breath/Wheezing Albuterol Sulfate (Albuterol Sulfate 90 Mcg 8 Gm Inhaler) 2 puff INHALE Q6H PRN PRN Reason: Shortness Of Breath Or Wheezing Clonazepam (Clonazepam 0.5 Mg Tablet) 0.5 mg PO BID PRN On Hold: 05/05/25 04:14 PRN Reason: Anxiety Clonidine HCl (Clonidine Hcl 0.1 Mg Tablet) 0.3 mg PO BEDTIME [facility]; Protocol On Hold: 05/05/25 04:13 Last Admin: 05/04/25 21:10 Dose: 0.3 mg Documented By: RD Dextrose (Dextrose 50 % 25 Gm/50 Ml Syringe) 25 gm IVPUSH Q15M PRN; Protocol PRN Reason: per Hypoglycemia Standing Ord. Diazepam (Diazepam 10 Mg/2 Ml Cartridge) 2.5 mg IVPUSH Q6H PRN PRN Reason: Alcohol Withdrawal Last Admin: 05/04/25 06:29 Dose: 2.5 mg Documented By: CLAUDETTE Doxepin HCl (Doxepin Hcl 25 Mg Capsule) 100 mg PO BEDTIME [facility] Last Admin: 05/04/25 21:10 Dose: 100 mg Documented By: RD Enoxaparin Sodium (Enoxaparin Sodium 40 Mg/0.4 Ml Syringe) 40 mg SUBCUT Q24H [facility] Last Admin: 05/04/25 10:49 Dose: 40 mg Documented By: ROBIN Fluticasone Propionate (Fluticasone Propionate Nasal 16 Gm [place]) 1 spray NOSTRIL-B BID PRN PRN Reason: allergies Glucagon (Glucagon Hcl 1 Mg Vial) 1 mg IM Q20M PRN PRN Reason: Hypoglycemia Glucose (Glucose Gel 15 Gm Gel..Gram.) 15 gm PO Q15M PRN; Protocol PRN Reason: per Hypoglycemia Standing Ord. Hydromorphone HCl (Hydromorphone Hcl 1 Mg/Ml Syringe) 0.5 mg IVPUSH Q4H PRN; Protocol PRN Reason: Pain, Severe (Pain Scale 7-10) Dextrose/Sodium Chloride (D5ns) 1,000 mls @ 100 mls/hr IVCONT .Q10H [facility] Last Admin: 05/05/25 00:00 Dose: 100 mls/hr Documented By: SARA Insulin Human Lispro (Insulin Lispro 100 Unit/Ml 3 Ml Vial) 0 unit SUBCUT QIDACHS [facility]; Protocol Last Admin: 05/05/25 08:14 Dose: Not Given Documented By: CHARLES Non-Admin Reason: No Insulin Coverage Lamotrigine (Lamotrigine 25 Mg Tablet) 50 mg PO BEDTIME [facility] Last Admin: 05/04/25 21:10 Dose: 50 mg Documented By: RD Montelukast Sodium (Montelukast Sodium 10 Mg Tablet) 10 mg PO DAILY [facility] Omeprazole (Omeprazole 20 Mg Capsule.Dr) 20 mg PO BID@0630,1630 [facility] Ondansetron HCl (Ondansetron Hcl 4 Mg/2 Ml Vial) 4 mg IVPUSH Q8H PRN PRN Reason: Nausea and Vomiting Pantoprazole Sodium (Pantoprazole Sodium 40 Mg/10 Ml Vial) 40 mg IVPUSH Q12H [facility] Last Admin: 05/04/25 21:09 Dose: 40 mg Documented By: RD Pregabalin (Pregabalin 150 Mg Capsule) 300 mg PO BEDTIME [facility] On Hold: 05/05/25 04:13 Last Admin: 05/04/25 21:10 Dose: 300 mg Documented By: RD Sodium Chloride (0.9 % Sodium Chloride Flush 3 Ml Syringe) 3 ml IVFLUSH QSHIFT [facility] Last Admin: 05/05/25 00:03 Dose: Not Given Documented By: SARA Non-Admin Reason: IV Running Tamsulosin HCl (Tamsulosin Hcl 0.4 Mg Capsule) 0.4 mg PO DAILY [facility] Labs 05/05/25 04:19 05/05/25 04:19 Labs: Laboratory Results - last 24 hr 05/04/25 05/04/25 05/04/25 13:49 16:47 19:57 MCV MCH MCHC RDW Plt Count MPV Immature Gran % (Auto) Neut % (Auto) Lymph % (Auto) [place] % (Auto) Eos % (Auto) Baso % (Auto) Lymph # (Auto) [place] # (Auto) Eos # (Auto) Baso # (Auto) Abs Immat Gran (auto) Absolute Neuts (auto) Absolute Nucleated RBC Nucleated RBC % (auto) VBG pH VBG pCO2 VBG pO2 VBG HCO3 VBG O2 Saturation VBG Base Excess Anion Gap Estim Creat Clear Calc Estimated GFR POC Glucose 65 104 126 H Random Glucose Lactic Acid Calcium Total Bilirubin AST ALT Alkaline Phosphatase Ammonia Total Protein Albumin Lipase 05/05/25 05/05/25 05/05/25 03:47 04:19 04:19 MCV 85.9 MCH 29.5 MCHC 34.3 RDW 13.2 Plt Count 249 MPV 9.2 L Immature Gran % (Auto) 0.4 Neut % (Auto) 57.1 Lymph % (Auto) 32.9 [place] % (Auto) 7.7 Eos % (Auto) 1.4 Baso % (Auto) 0.5 Lymph # (Auto) 1.8 [place] # (Auto) 0.4 Eos # (Auto) 0.1 Baso # (Auto) 0.0 Abs Immat Gran (auto) 0.02 Absolute Neuts (auto) 3.2 Absolute Nucleated RBC 0.000 Nucleated RBC % (auto) 0.0 VBG pH VBG pCO2 VBG pO2 VBG HCO3 VBG O2 Saturation VBG Base Excess Anion Gap 9 L Estim Creat Clear Calc 104.5 Estimated GFR > 60 POC Glucose 159 H Random Glucose 181 H Lactic Acid 0.8 Calcium 8.1 L D Total Bilirubin 0.3 AST 45 H ALT 87 H Alkaline Phosphatase 137 H Ammonia 24 Total Protein 6.0 L Albumin 3.2 L Lipase Cancelled 83 H 05/05/25 05/05/25 04:25 07:37 MCV MCH MCHC RDW Plt Count MPV Immature Gran % (Auto) Neut % (Auto) Lymph % (Auto) [place] % (Auto) Eos % (Auto) Baso % (Auto) Lymph # (Auto) [place] # (Auto) Eos # (Auto) Baso # (Auto) Abs Immat Gran (auto) Absolute Neuts (auto) Absolute Nucleated RBC Nucleated RBC % (auto) VBG pH 7.38 VBG pCO2 46 VBG pO2 45 VBG HCO3 28 H VBG O2 Saturation 70.0 VBG Base Excess 2.6 Anion Gap Estim Creat Clear Calc Estimated GFR POC Glucose 182 H Random Glucose Lactic Acid Calcium Total Bilirubin AST ALT Alkaline Phosphatase Ammonia Total Protein Albumin Lipase Assessment and Plan (1) Pancreatitis: Status: Acute Plan 50 y/o woman with PMHx significant for GERD, pancreatitis and gastroparesis who presents to the ED with: Toxic metabolic encephalopathy: Secondary to medications Received Narcan last night Abdominal pain secondary to acute pancreatitis associated acute esophagitis. Etiology unclear. EtOH level = 13; pt denied alcohol abuse. Lipase higher that prior. Not taking diclofenac or Ozempic. No significant elevation of triglycerides. Check abdominal ultrasound to assess for cholelithiasis and/or cholecystitis:No cholelithiasis or gross choledocholithiasis. CRP is4. Gi rec-Continue IV fluids due to low p.o. intake, also borderline blood pressure,Pain control and antiemetic therapy as needed. Protonix 40 mg IV twice daily. surgery eval-for ?bilary pancreatitis Gi eval pending Elevated LFTs. Likely secondary to hepatic steatosis. lfts imrpoving , hepatitis screen A,B,C nonreactive. urine drug screen-pending Type 2 diabetes. fs with sliding scale coverage. Depression/anxiety/PTSD. Continue home meds. Fibromyalgia. Continue Lyrica. Hold trauma as the patient has been receiving Dilaudid. History of seizure. Continue Lamictal. Intermittent asthma/COPD. Continue home inhalers. Albuterol nebs as needed. Code status: Full DVT prophylaxis: Lovenox ongoing need hospitalization for acute pancreatitis and esophagitis therapy with with IV pain meds IV anterior meds and IV fluids. Quality Stroke Does the patient have a stroke diagnosis?: No VTE Prior VTE?: No VTE Risk Level:: Medical - moderate - high VTE Device Contraindication: Treatment Not Indicated VTE Drug Contraindication: N/A - Med Ordered
[2025-05-05] MEDS: 0.9 % Sodium Chloride Flush 3 ML SYRINGE IVFLUSH ×2 (09:43→16:44)
--- NOTE | 2025-05-05 10:35 | MHC.CM.PN ---
Pt. lives with her mother and children, she does not currently have home health services or use DME. HCP discussed, she said she has completed the form, naming her son. PCP confirmed: Hanh Mcdonough at [facility]. Family to provide transport home at DC, DCP: home, self care. CM to follow for DC needs.
[2025-05-05 11:39] LABS: Glucose, Whole Blood 318 mg/dL (60-115)
[2025-05-05 13:53] LABS: Cannabinoid Screen Urine Not Detected (Not Detect)
[2025-05-05 16:33] LABS: Glucose, Whole Blood 271 mg/dL (60-115)
[2025-05-05 20:37] LABS: Glucose, Whole Blood 223 mg/dL (60-115)
[2025-05-06] VITALS (10 sets, daily range): BP systolic 113–169; BP diastolic 55–78; PULSE 58–100; RESP 18–20; TEMP 36.2–37.6; O2SAT 90–97
[2025-05-06 07:18] LABS: Glucose, Whole Blood 294 mg/dL (60-115)
[2025-05-06] MEDS: Lactated Ringers 1,000 ML 100 ML IVCONT ×2 (11:11→20:57)
[2025-05-06 11:51] LABS: Alanine Aminotransferase 63 U/L (0-31); Albumin Level 3.6 g/dL (3.5-5.0); Alkaline Phosphatase 129 U/L (39-117); Anion Gap 11 (12-20); Aspartate Amino Transferase 24 U/L (5-31); Blood Urea Nitrogen 5 mg/dL (9-16); Calcium 8.6 mg/dL (8.4-10.2); Carbon Dioxide 26 mmol/L (22-29); Chloride 106 mmol/L (96-108); Creatinine Clr Calc Pharmacy 106.1; Estimated Glomerular Filt Rate > 60; Potassium 3.6 mmol/L (3.3-5.1); Sodium 139 mmol/L (135-145); Total Protein 6.5 g/dL (6.5-8.0)
[2025-05-06 12:11] LABS: Glucose, Whole Blood 233 mg/dL (60-115)
--- NOTE | 2025-05-06 14:08 | P.PNIM_ITS ---
Subjective Subjective Date of Service: 05/06/25 Interval History: Acute pancreatitis Review of Systems Given trial of p.o. intake but patient did not able to eat due to pain. Still has similar pain. No nausea vomiting or fever Review of Systems: Yes all other systems are reviewed and are negative Physical Exam 2 Exam: Exam: Appearance: Alert.? Oriented X3.? cvs: rrr, [id number] . res: clear to auscultation ,no rhonchii or wheezing abd: no rebound or guarding ,left flank area /epigastric discomfort, bs present. ext pulses present , no cyanosis. neuro: axo3 , nonfocal. Vital Signs: Vital Signs: Last Vital Signs Temp 98.2 F 05/06/25 11:48 Pulse 94 05/06/25 11:48 Resp 18 05/06/25 11:48 BP 122/58 L 05/06/25 11:48 Pulse Ox 94 05/06/25 11:48 O2 Del Method Room Air 05/06/25 11:48 BMI result Body Mass Index 26.6 Objective Data Active Medications Acetaminophen/Butalbital/Caffeine (Butalb/Acetamin/Caff 50/325/40 Tablet) 1 tab PO Q6H PRN PRN Reason: haeadace Albuterol Sulfate (Albuterol Sulfate (0.083%) 2.5 Mg/3 Ml Vial.Neb) 2.5 mg INHALE Q3H PRN PRN Reason: Shortness of Breath/Wheezing Albuterol Sulfate (Albuterol Sulfate 90 Mcg 8 Gm Inhaler) 2 puff INHALE Q6H PRN PRN Reason: Shortness Of Breath Or Wheezing Clonazepam (Clonazepam 0.5 Mg Tablet) 0.5 mg PO BID PRN On Hold: 05/05/25 04:14 PRN Reason: Anxiety Clonidine HCl (Clonidine Hcl 0.1 Mg Tablet) 0.3 mg PO BEDTIME [facility]; Protocol On Hold: 05/05/25 04:13 Last Admin: 05/04/25 21:10 Dose: 0.3 mg Documented By: RD Dextrose (Dextrose 50 % 25 Gm/50 Ml Syringe) 25 gm IVPUSH Q15M PRN; Protocol PRN Reason: per Hypoglycemia Standing Ord. Diazepam (Diazepam 10 Mg/2 Ml Cartridge) 2.5 mg IVPUSH Q6H PRN PRN Reason: Alcohol Withdrawal Last Admin: 05/04/25 06:29 Dose: 2.5 mg Documented By: CLAUDETTE Doxepin HCl (Doxepin Hcl 25 Mg Capsule) 100 mg PO BEDTIME [facility] Last Admin: 05/05/25 21:42 Dose: 100 mg Documented By: ELIS Enoxaparin Sodium (Enoxaparin Sodium 40 Mg/0.4 Ml Syringe) 40 mg SUBCUT Q24H [facility] Last Admin: 05/06/25 08:50 Dose: 40 mg Documented By: ELA Fluticasone Propionate (Fluticasone Propionate Nasal 16 Gm [place]) 1 spray NOSTRIL-B BID PRN PRN Reason: allergies Glucagon (Glucagon Hcl 1 Mg Vial) 1 mg IM Q20M PRN PRN Reason: Hypoglycemia Glucose (Glucose Gel 15 Gm Gel..Gram.) 15 gm PO Q15M PRN; Protocol PRN Reason: per Hypoglycemia Standing Ord. Hydromorphone HCl (Hydromorphone Hcl 1 Mg/Ml Syringe) 0.5 mg IVPUSH Q4H PRN; Protocol PRN Reason: Pain, Severe (Pain Scale 7-10) Last Admin: 05/06/25 08:44 Dose: 0.5 mg Documented By: ELA Lactated Ringer's (Lr) 1,000 mls @ 100 mls/hr IVCONT .Q10H [facility] Last Admin: 05/06/25 11:11 Dose: 100 mls/hr Documented By: ELA Insulin Human Lispro (Insulin Lispro 100 Unit/Ml 3 Ml Vial) 0 unit SUBCUT QIDACHS [facility]; Protocol Last Admin: 05/06/25 12:15 Dose: 2 unit Documented By: ELA Lamotrigine (Lamotrigine 25 Mg Tablet) 50 mg PO BEDTIME [facility] Last Admin: 05/05/25 21:43 Dose: 50 mg Documented By: ELIS Montelukast Sodium (Montelukast Sodium 10 Mg Tablet) 10 mg PO DAILY [facility] Last Admin: 05/06/25 08:50 Dose: Not Given Documented By: ELA Non-Admin Reason: Nausea Ondansetron HCl (Ondansetron Hcl 4 Mg/2 Ml Vial) 4 mg IVPUSH Q8H PRN PRN Reason: Nausea and Vomiting Last Admin: 05/06/25 08:49 Dose: 4 mg Documented By: ELA Pantoprazole Sodium (Pantoprazole Sodium 40 Mg/10 Ml Vial) 40 mg IVPUSH Q12H [facility] Last Admin: 05/06/25 08:50 Dose: 40 mg Documented By: ELA Pregabalin (Pregabalin 150 Mg Capsule) 300 mg PO BEDTIME [facility] On Hold: 05/05/25 04:13 Last Admin: 05/04/25 21:10 Dose: 300 mg Documented By: TUMASY Sodium Chloride (0.9 % Sodium Chloride Flush 3 Ml Syringe) 3 ml IVFLUSH QSHIFT [facility] Last Admin: 05/06/25 08:50 Dose: Not Given Documented By: ELA Non-Admin Reason: IV Running Tamsulosin HCl (Tamsulosin Hcl 0.4 Mg Capsule) 0.4 mg PO DAILY [facility] Last Admin: 05/06/25 08:50 Dose: Not Given Documented By: ELA Non-Admin Reason: Nausea Labs 05/05/25 04:19 05/06/25 10:46 Labs: Laboratory Results - last 24 hr 05/05/25 05/05/25 05/06/25 16:25 20:34 06:58 Anion Gap Estim Creat Clear Calc Estimated GFR POC Glucose 271 H 223 H 294 H Random Glucose Calcium Total Bilirubin AST ALT Alkaline Phosphatase Total Protein Albumin 05/06/25 05/06/25 10:46 12:07 Anion Gap 11 L Estim Creat Clear Calc 106.1 Estimated GFR > 60 POC Glucose 233 H Random Glucose 273 H Calcium 8.6 D Total Bilirubin 0.4 AST 24 ALT 63 H Alkaline Phosphatase 129 H Total Protein 6.5 Albumin 3.6 Assessment and Plan (1) Pancreatitis: Status: Acute Plan 50 y/o woman with PMHx significant for GERD, pancreatitis and gastroparesis who presents to the ED with: Toxic metabolic encephalopathy: Secondary to medications Received Narcan 05/05/25 . Patient seems significantly better, mental status is at baseline. Abdominal pain secondary to acute pancreatitis associated acute esophagitis. Etiology unclear. EtOH level = 13; pt denied alcohol abuse. Lipase higher that prior. Not taking diclofenac or Ozempic. No significant elevation of triglycerides. Check abdominal ultrasound to assess for cholelithiasis and/or cholecystitis:No cholelithiasis or gross choledocholithiasis. CRP is4. Gi rec-Continue IV fluids due to low p.o. intake, also borderline blood pressure,Pain control and antiemetic therapy as needed. Protonix 40 mg IV twice daily. surgery eval-for ?bilary pancreatitis -outpatient management . Gi eval recommended for surgery evaluation, continue above management Elevated LFTs. Likely secondary to hepatic steatosis. lfts imrpoving , hepatitis screen A,B,C nonreactive. urine drug screen-pending Type 2 diabetes. fs with sliding scale coverage. Depression/anxiety/PTSD. Continue home meds. Fibromyalgia. Continue Lyrica. Hold trauma as the patient has been receiving Dilaudid. History of seizure. Continue Lamictal. Intermittent asthma/COPD. Continue home inhalers. Albuterol nebs as needed. Code status: Full DVT prophylaxis: Lovenox ongoing need hospitalization for acute pancreatitis and esophagitis therapy with with IV pain meds IV anterior meds and IV fluids. Quality Stroke Does the patient have a stroke diagnosis?: No VTE Prior VTE?: No VTE Risk Level:: Medical - moderate - high VTE Device Contraindication: Treatment Not Indicated VTE Drug Contraindication: N/A - Med Ordered
[2025-05-06 16:26] LABS: Glucose, Whole Blood 220 mg/dL (60-115)
[2025-05-06 19:29] LABS: Appearance Urine Turbid; Glucose Urine UA 100 mg/dL (Negative); PH 7.0 (5.0-9.0); Specific Gravity - Urine 1.020 (1.005-1.025); UMIC TRIGGER UA YES
[2025-05-06 20:00] LABS: Glucose, Whole Blood 195 mg/dL (60-115)
[2025-05-06] MEDS: Butalb/Acetamin/Caff 50/325/40 TABLET 1 TAB PO (20:58)
[2025-05-07] VITALS (9 sets, daily range): BP systolic 115–188; BP diastolic 57–90; PULSE 76–94; RESP 16–20; TEMP 36.1–37; O2SAT 95–98
--- NOTE | 2025-05-07 02:32 | PM.PNGS ---
Subjective Subjective Date of Service: 05/06/25 Interval history: Patient is still complaining of abdominal pain diffusely not eating much lipase was improved yesterday. Physical Exam Vital Signs: Vital Signs: Last Vital Signs Temp 98.9 F 05/06/25 23:29 Pulse 95 05/06/25 23:29 Resp 18 05/06/25 23:29 BP 113/55 L 05/06/25 23:29 Pulse Ox 95 05/06/25 23:29 O2 Del Method Room Air 05/06/25 23:29 O2 Flow Rate 2 05/06/25 15:20 BMI result Body Mass Index 26.6 GI: Other: Abdomen is soft nondistended but tender diffusely no true guarding rebound or peritoneal sign Objective Data Active Medications Acetaminophen/Butalbital/Caffeine (Butalb/Acetamin/Caff 50/325/40 Tablet) 1 tab PO Q6H PRN PRN Reason: haeadace Last Admin: 05/06/25 20:58 Dose: 1 tab Documented By: VENITA Albuterol Sulfate (Albuterol Sulfate (0.083%) 2.5 Mg/3 Ml Vial.Neb) 2.5 mg INHALE Q3H PRN PRN Reason: Shortness of Breath/Wheezing Albuterol Sulfate (Albuterol Sulfate 90 Mcg 8 Gm Inhaler) 2 puff INHALE Q6H PRN PRN Reason: Shortness Of Breath Or Wheezing Ceftriaxone Sodium (Ceftriaxone Sodium 1 Gm Vial) 1 gm IVPUSH Q24H [facility] Last Admin: 05/06/25 21:11 Dose: 1 gm Documented By: VENITA Clonazepam (Clonazepam 0.5 Mg Tablet) 0.5 mg PO BID PRN On Hold: 05/05/25 04:14 PRN Reason: Anxiety Clonidine HCl (Clonidine Hcl 0.1 Mg Tablet) 0.3 mg PO BEDTIME [facility]; Protocol On Hold: 05/05/25 04:13 Last Admin: 05/04/25 21:10 Dose: 0.3 mg Documented By: RD Dextrose (Dextrose 50 % 25 Gm/50 Ml Syringe) 25 gm IVPUSH Q15M PRN; Protocol PRN Reason: per Hypoglycemia Standing Ord. Diazepam (Diazepam 10 Mg/2 Ml Cartridge) 2.5 mg IVPUSH Q6H PRN PRN Reason: Alcohol Withdrawal Last Admin: 05/04/25 06:29 Dose: 2.5 mg Documented By: CLAUDETTE Doxepin HCl (Doxepin Hcl 25 Mg Capsule) 100 mg PO BEDTIME [facility] Last Admin: 05/06/25 20:58 Dose: 100 mg Documented By: VENITA Enoxaparin Sodium (Enoxaparin Sodium 40 Mg/0.4 Ml Syringe) 40 mg SUBCUT Q24H [facility] On Hold: 05/06/25 18:37 Last Admin: 05/06/25 08:50 Dose: 40 mg Documented By: ELA Fluticasone Propionate (Fluticasone Propionate Nasal 16 Gm [place]) 1 spray NOSTRIL-B BID PRN PRN Reason: allergies Glucagon (Glucagon Hcl 1 Mg Vial) 1 mg IM Q20M PRN PRN Reason: Hypoglycemia Glucose (Glucose Gel 15 Gm Gel..Gram.) 15 gm PO Q15M PRN; Protocol PRN Reason: per Hypoglycemia Standing Ord. Hydromorphone HCl (Hydromorphone Hcl 1 Mg/Ml Syringe) 0.5 mg IVPUSH Q4H PRN; Protocol PRN Reason: Pain, Severe (Pain Scale 7-10) Last Admin: 05/06/25 18:49 Dose: 0.5 mg Documented By: ELA Lactated Ringer's (Lr) 1,000 mls @ 100 mls/hr IVCONT .Q10H [facility] Last Admin: 05/06/25 20:57 Dose: 100 mls/hr Documented By: VENITA Insulin Human Lispro (Insulin Lispro 100 Unit/Ml 3 Ml Vial) 0 unit SUBCUT QIDACHS [facility]; Protocol Last Admin: 05/06/25 20:58 Dose: Not Given Documented By: VENITA Non-Admin Reason: No Insulin Coverage Lamotrigine (Lamotrigine 25 Mg Tablet) 50 mg PO BEDTIME [facility] Last Admin: 05/06/25 20:58 Dose: 50 mg Documented By: VENITA Montelukast Sodium (Montelukast Sodium 10 Mg Tablet) 10 mg PO DAILY [facility] Last Admin: 05/06/25 08:50 Dose: Not Given Documented By: ELA Non-Admin Reason: Nausea Ondansetron HCl (Ondansetron Hcl 4 Mg/2 Ml Vial) 4 mg IVPUSH Q8H PRN PRN Reason: Nausea and Vomiting Last Admin: 05/06/25 08:49 Dose: 4 mg Documented By: ELA Pantoprazole Sodium (Pantoprazole Sodium 40 Mg/10 Ml Vial) 40 mg IVPUSH Q12H [facility] Last Admin: 05/06/25 20:58 Dose: 40 mg Documented By: VENITA Pregabalin (Pregabalin 150 Mg Capsule) 300 mg PO BEDTIME [facility] On Hold: 05/05/25 04:13 Last Admin: 05/04/25 21:10 Dose: 300 mg Documented By: TUMASY Sodium Chloride (0.9 % Sodium Chloride Flush 3 Ml Syringe) 3 ml IVFLUSH QSHIFT [facility] Last Admin: 05/07/25 00:43 Dose: Not Given Documented By: VENITA Non-Admin Reason: IV Running Tamsulosin HCl (Tamsulosin Hcl 0.4 Mg Capsule) 0.4 mg PO DAILY [facility] Last Admin: 05/06/25 08:50 Dose: Not Given Documented By: ELA Non-Admin Reason: Nausea Labs 05/05/25 04:19 05/06/25 10:46 Labs: Laboratory Results - last 24 hr 05/06/25 05/06/25 05/06/25 06:58 10:46 12:07 Anion Gap 11 L Estim Creat Clear Calc 106.1 Estimated GFR > 60 POC Glucose 294 H 233 H Random Glucose 273 H Calcium 8.6 D Total Bilirubin 0.4 AST 24 ALT 63 H Alkaline Phosphatase 129 H Total Protein 6.5 Albumin 3.6 Urine Color Urine Appearance Urine pH Ur Specific [place] Urine Protein Urine Glucose (UA) Urine Ketones Urine Blood Urine Nitrite Ur Leukocyte Esterase Urine RBC Urine WBC Ur Squamous Epith Cells Urine Bacteria Hyaline Casts 05/06/25 05/06/25 05/06/25 16:23 18:45 19:57 Anion Gap Estim Creat Clear Calc Estimated GFR POC Glucose 220 H 195 H Random Glucose Calcium Total Bilirubin AST ALT Alkaline Phosphatase Total Protein Albumin Urine Color Yellow Urine Appearance Turbid Urine pH 7.0 Ur Specific [place] 1.020 Urine Protein 100 (2+) H Urine Glucose (UA) 100 H Urine Ketones 40 Urine Blood Large (3+) H Urine Nitrite Positive H Ur Leukocyte Esterase Moderate (2+) H Urine RBC >20 H Urine WBC >50 H Ur Squamous Epith Cells 0-2 Urine Bacteria 4+ Hyaline Casts 0-2 Procedures Date of Service Date of Service: 05/07/25 Progress Note: A&P Assessment and plan (1) Acute pancreatitis: Status: Acute Assessment and Plan: 50-year-old female diagnosed with pancreatitis but no evidence of gallstones on workup twice with CT scan of abdomen and pelvis and right upper quadrant ultrasound. Patient not alcohol drinker. In regards to her lipase but still having abdominal pain. I do not think that there is any evidence of any active cholecystitis so this is not necessarily issue. We will the slow resolving pancreatitis. Patient also with question of hepatic steatosis causing increase of her AST ALT alk-phos. Her bilirubin has been normal. At this point there is no benefit we are requirement for cholecystectomy. If there is a concern that she has biliary sludge etc. that is causing these repeat episodes of pancreatitis then can consider elective laparoscopic cholecystectomy. Time Spent With Patient Time: Total time managing care of this patient today ____ minutes. Quality Stroke Does the patient have a stroke diagnosis?: No VTE Prior VTE?: No VTE Risk Level:: Medical - moderate - high VTE Device Contraindication: Treatment Not Indicated VTE Drug Contraindication: N/A - Med Ordered
[2025-05-07] MEDS: Lactated Ringers 1,000 ML 100 ML IVCONT (03:47)
[2025-05-07 08:02] LABS: Glucose, Whole Blood 167 mg/dL (60-115)
[2025-05-07] MEDS: 0.9 % Sodium Chloride Flush 3 ML SYRINGE IVFLUSH ×2 (08:12→20:53)
--- NOTE | 2025-05-07 09:47 | P.PNGS_ITS ---
Subjective Subjective Date of Service: 05/07/25 Interval history: Still complains of the same pain Hemodynamically stable Denies nausea or vomiting Physical Exam 2 Vital Signs: Vital Signs: Last Vital Signs Temp 97.5 F 05/07/25 08:00 Pulse 88 05/07/25 08:00 Resp 20 05/07/25 08:00 BP 162/76 H 05/07/25 08:00 Pulse Ox 97 05/07/25 08:00 O2 Del Method Room Air 05/07/25 08:00 O2 Flow Rate 2 05/06/25 15:20 BMI result Body Mass Index 26.6 Const: Other: Complains of abdominal pain says this has diffuse Resp: Effort & Inspection: normal respiratory effort Cardio: Rate: regular rate GI: Palpation (GI): Soft to palpation, not firm, Tenderness to palpation present (GI) (Some diffuse tenderness) and no guarding Objective Data Active Medications Acetaminophen/Butalbital/Caffeine (Butalb/Acetamin/Caff 50/325/40 Tablet) 1 tab PO Q6H PRN PRN Reason: haeadace Last Admin: 05/06/25 20:58 Dose: 1 tab Documented By: VENITA Albuterol Sulfate (Albuterol Sulfate (0.083%) 2.5 Mg/3 Ml Vial.Neb) 2.5 mg INHALE Q3H PRN PRN Reason: Shortness of Breath/Wheezing Albuterol Sulfate (Albuterol Sulfate 90 Mcg 8 Gm Inhaler) 2 puff INHALE Q6H PRN PRN Reason: Shortness Of Breath Or Wheezing Ceftriaxone Sodium (Ceftriaxone Sodium 1 Gm Vial) 1 gm IVPUSH Q24H [facility] Last Admin: 05/06/25 21:11 Dose: 1 gm Documented By: VENITA Clonazepam (Clonazepam 0.5 Mg Tablet) 0.5 mg PO BID PRN On Hold: 05/05/25 04:14 PRN Reason: Anxiety Clonidine HCl (Clonidine Hcl 0.1 Mg Tablet) 0.3 mg PO BEDTIME [facility]; Protocol On Hold: 05/05/25 04:13 Last Admin: 05/04/25 21:10 Dose: 0.3 mg Documented By: RD Dextrose (Dextrose 50 % 25 Gm/50 Ml Syringe) 25 gm IVPUSH Q15M PRN; Protocol PRN Reason: per Hypoglycemia Standing Ord. Diazepam (Diazepam 10 Mg/2 Ml Cartridge) 2.5 mg IVPUSH Q6H PRN PRN Reason: Alcohol Withdrawal Last Admin: 05/04/25 06:29 Dose: 2.5 mg Documented By: CLAUDETTE Doxepin HCl (Doxepin Hcl 25 Mg Capsule) 100 mg PO BEDTIME [facility] Last Admin: 05/06/25 20:58 Dose: 100 mg Documented By: VENITA Enoxaparin Sodium (Enoxaparin Sodium 40 Mg/0.4 Ml Syringe) 40 mg SUBCUT Q24H [facility] On Hold: 05/06/25 18:37 Last Admin: 05/06/25 08:50 Dose: 40 mg Documented By: ELA Fluticasone Propionate (Fluticasone Propionate Nasal 16 Gm [place]) 1 spray NOSTRIL-B BID PRN PRN Reason: allergies Glucagon (Glucagon Hcl 1 Mg Vial) 1 mg IM Q20M PRN PRN Reason: Hypoglycemia Glucose (Glucose Gel 15 Gm Gel..Gram.) 15 gm PO Q15M PRN; Protocol PRN Reason: per Hypoglycemia Standing Ord. Hydromorphone HCl (Hydromorphone Hcl 1 Mg/Ml Syringe) 0.5 mg IVPUSH Q4H PRN; Protocol PRN Reason: Pain, Severe (Pain Scale 7-10) Last Admin: 05/07/25 08:11 Dose: 0.5 mg Documented By: JOSE Sodium Chloride (Ns) 1,000 mls @ 100 mls/hr IVCONT .Q10H [facility] Last Admin: 05/07/25 08:53 Dose: 100 mls/hr Documented By: JOSE Insulin Human Lispro (Insulin Lispro 100 Unit/Ml 3 Ml Vial) 0 unit SUBCUT QIDACHS [facility]; Protocol Last Admin: 05/07/25 08:13 Dose: Not Given Documented By: JOSE Non-Admin Reason: No Insulin Coverage Lamotrigine (Lamotrigine 25 Mg Tablet) 50 mg PO BEDTIME [facility] Last Admin: 05/06/25 20:58 Dose: 50 mg Documented By: VENITA Montelukast Sodium (Montelukast Sodium 10 Mg Tablet) 10 mg PO DAILY [facility] Last Admin: 05/07/25 08:12 Dose: 10 mg Documented By: JOSE Ondansetron HCl (Ondansetron Hcl 4 Mg/2 Ml Vial) 4 mg IVPUSH Q8H PRN PRN Reason: Nausea and Vomiting Last Admin: 05/06/25 08:49 Dose: 4 mg Documented By: ELA Pantoprazole Sodium (Pantoprazole Sodium 40 Mg/10 Ml Vial) 40 mg IVPUSH Q12H [facility] Last Admin: 05/07/25 08:12 Dose: 40 mg Documented By: JOSE Pregabalin (Pregabalin 150 Mg Capsule) 300 mg PO BEDTIME [facility] On Hold: 05/05/25 04:13 Last Admin: 05/04/25 21:10 Dose: 300 mg Documented By: RD Sodium Chloride (0.9 % Sodium Chloride Flush 3 Ml Syringe) 3 ml IVFLUSH QSHIFT [facility] Last Admin: 05/07/25 08:12 Dose: 3 ml Documented By: JOSE Tamsulosin HCl (Tamsulosin Hcl 0.4 Mg Capsule) 0.4 mg PO DAILY [facility] Last Admin: 05/07/25 08:12 Dose: 0.4 mg Documented By: JOSE Labs 05/07/25 10:28 05/07/25 10:28 Labs: Laboratory Results - last 24 hr 05/06/25 05/06/25 05/06/25 10:46 12:07 16:23 Anion Gap 11 L Estim Creat Clear Calc 106.1 Estimated GFR > 60 POC Glucose 233 H 220 H Random Glucose 273 H Calcium 8.6 D Total Bilirubin 0.4 AST 24 ALT 63 H Alkaline Phosphatase 129 H Total Protein 6.5 Albumin 3.6 Urine Color Urine Appearance Urine pH Ur Specific [place] Urine Protein Urine Glucose (UA) Urine Ketones Urine Blood Urine Nitrite Ur Leukocyte Esterase Urine RBC Urine WBC Ur Squamous Epith Cells Urine Bacteria Hyaline Casts 05/06/25 05/06/25 05/07/25 18:45 19:57 07:58 Anion Gap Estim Creat Clear Calc Estimated GFR POC Glucose 195 H 167 H Random Glucose Calcium Total Bilirubin AST ALT Alkaline Phosphatase Total Protein Albumin Urine Color Yellow Urine Appearance Turbid Urine pH 7.0 Ur Specific [place] 1.020 Urine Protein 100 (2+) H Urine Glucose (UA) 100 H Urine Ketones 40 Urine Blood Large (3+) H Urine Nitrite Positive H Ur Leukocyte Esterase Moderate (2+) H Urine RBC >20 H Urine WBC >50 H Ur Squamous Epith Cells 0-2 Urine Bacteria 4+ Hyaline Casts 0-2 Microbiology Microbiology Results: Microbiology 05/06/25 18:45 Urine Culture - Preliminary Urine clean catch - Clean Catch Midstream Gram negative darryl Procedures Date of Service Date of Service: 05/07/25 Progress Note: A&P Assessment and plan (1) Abdominal pain: Status: Inactive Assessment and Plan: Continues to have abdominal pain Etiology uncertain We will repeat labs including LFTs We will continue to follow Hemodynamically stable otherwise Time Spent With Patient Time: Total time managing care of this patient today ____ minutes. Quality Stroke Does the patient have a stroke diagnosis?: No VTE Prior VTE?: No VTE Risk Level:: Medical - moderate - high VTE Device Contraindication: Treatment Not Indicated VTE Drug Contraindication: N/A - Med Ordered
--- NOTE | 2025-05-07 10:53 | P.CNUR_ITS ---
History of Present Illness Consult details Consult date: 05/07/25 Narrative: CC: Hemorrhagic cystitis 50-year-old female Type 2 insulin-dependent diabetic Presents through emergency room with epigastric pain Admitted with question of pancreatitis mildly elevated LFTs Abdominal CT scan with question of esophagitis Found to have hematuria UA shows positive nitrites Preliminary culture Gram-negative rods Recommend continuing IV antibiotics until speciation complete Check HbA1c for insulin control Follow with PCP after discharge Review of Systems 2 Constitutional: Constitutional: Reports as per HPI and Reports no additional constitutional complaints Cardiovascular: Cardiovascular: Reports as per HPI and Reports no additional cardiovascular complaints Respiratory: Respiratory: Reports as per HPI and Reports no additional respiratory complaints Gastrointestinal: Gastrointestinal: Reports as per HPI and Reports no additional gastrointestinal complaints Genitourinary: Genitourinary: Reports as per HPI Musculoskeletal: Musculoskeletal: Reports no additional musculoskeletal complaints and Reports as per HPI Neurologic: Reports system reviewed and no additional complaints, except as documented and Reports as per HPI PMFSH Past Medical History Medical History (Updated 05/07/25 @ 10:57 by Thomas Granados MD) History of seizures Type 2 diabetes mellitus Asthma Hepatitis A Social History Social History Household Members: Family Housing: Apartment Do you presently have visiting nurse or other home services: No (working on getting a audioprosthologist) Alcohol intake: former Patient Tobacco Use Status: Tobacco use Unknown Tobacco use type: Cigarette Cigarettes Per Day: 3 Years Smoked: 20 e-Cigarette/Vaping Use: Currently Using Second Hand Smoke Exposure: No service: No Meds Allergies Allergy/AdvReac Type Severity Reaction Status Date / Time ciprofloxacin (From CIPRO) Allergy Intermediate RASH Verified 05/03/25 21:47 Sulfa (Sulfonamide Allergy Intermediate RASH Verified 05/03/25 21:47 Antibiotics) (SULFA (SULFONAMIDE ANTIBIOTICS)) sulfamethoxazole (From Allergy Unknown SWELLING Verified 05/03/25 21:47 SEPTRA) trimethoprim (From SEPTRA) Allergy Unknown SWELLING Verified 05/03/25 21:47 SEAFOOD Allergy Severe ANAPHYLAXIS Uncoded 05/03/25 21:47 Active Medications: Current Medications Acetaminophen/Butalbital/Caffeine (Butalb/Acetamin/Caff 50/325/40 Tablet) 1 tab PO Q6H PRN PRN Reason: haeadace Last Admin: 05/06/25 20:58 Dose: 1 tab Albuterol Sulfate (Albuterol Sulfate (0.083%) 2.5 Mg/3 Ml Vial.Neb) 2.5 mg INHALE Q3H PRN PRN Reason: Shortness of Breath/Wheezing Albuterol Sulfate (Albuterol Sulfate 90 Mcg 8 Gm Inhaler) 2 puff INHALE Q6H PRN PRN Reason: Shortness Of Breath Or Wheezing Ceftriaxone Sodium (Ceftriaxone Sodium 1 Gm Vial) 1 gm IVPUSH Q24H [facility] Last Admin: 05/06/25 21:11 Dose: 1 gm Clonazepam (Clonazepam 0.5 Mg Tablet) 0.5 mg PO BID PRN On Hold: 05/05/25 04:14 PRN Reason: Anxiety Clonidine HCl (Clonidine Hcl 0.1 Mg Tablet) 0.3 mg PO BEDTIME [facility]; Protocol On Hold: 05/05/25 04:13 Last Admin: 05/04/25 21:10 Dose: 0.3 mg Dextrose (Dextrose 50 % 25 Gm/50 Ml Syringe) 25 gm IVPUSH Q15M PRN; Protocol PRN Reason: per Hypoglycemia Standing Ord. Diazepam (Diazepam 10 Mg/2 Ml Cartridge) 2.5 mg IVPUSH Q6H PRN PRN Reason: Alcohol Withdrawal Last Admin: 05/04/25 06:29 Dose: 2.5 mg Doxepin HCl (Doxepin Hcl 25 Mg Capsule) 100 mg PO BEDTIME [facility] Last Admin: 05/06/25 20:58 Dose: 100 mg Enoxaparin Sodium (Enoxaparin Sodium 40 Mg/0.4 Ml Syringe) 40 mg SUBCUT Q24H [facility] On Hold: 05/06/25 18:37 Last Admin: 05/06/25 08:50 Dose: 40 mg Fluticasone Propionate (Fluticasone Propionate Nasal 16 Gm [place]) 1 spray NOSTRIL-B BID PRN PRN Reason: allergies Glucagon (Glucagon Hcl 1 Mg Vial) 1 mg IM Q20M PRN PRN Reason: Hypoglycemia Glucose (Glucose Gel 15 Gm Gel..Gram.) 15 gm PO Q15M PRN; Protocol PRN Reason: per Hypoglycemia Standing Ord. Hydromorphone HCl (Hydromorphone Hcl 1 Mg/Ml Syringe) 0.5 mg IVPUSH Q4H PRN; Protocol PRN Reason: Pain, Severe (Pain Scale 7-10) Last Admin: 05/07/25 08:11 Dose: 0.5 mg Sodium Chloride (Ns) 1,000 mls @ 100 mls/hr IVCONT .Q10H [facility] Last Admin: 05/07/25 08:53 Dose: 100 mls/hr Insulin Human Lispro (Insulin Lispro 100 Unit/Ml 3 Ml Vial) 0 unit SUBCUT QIDACHS [facility]; Protocol Last Admin: 05/07/25 08:13 Dose: Not Given Lamotrigine (Lamotrigine 25 Mg Tablet) 50 mg PO BEDTIME [facility] Last Admin: 05/06/25 20:58 Dose: 50 mg Montelukast Sodium (Montelukast Sodium 10 Mg Tablet) 10 mg PO DAILY [facility] Last Admin: 05/07/25 08:12 Dose: 10 mg Ondansetron HCl (Ondansetron Hcl 4 Mg/2 Ml Vial) 4 mg IVPUSH Q8H PRN PRN Reason: Nausea and Vomiting Last Admin: 05/06/25 08:49 Dose: 4 mg Pantoprazole Sodium (Pantoprazole Sodium 40 Mg/10 Ml Vial) 40 mg IVPUSH Q12H [facility] Last Admin: 05/07/25 08:12 Dose: 40 mg Pregabalin (Pregabalin 150 Mg Capsule) 300 mg PO BEDTIME [facility] On Hold: 05/05/25 04:13 Last Admin: 05/04/25 21:10 Dose: 300 mg Sodium Chloride (0.9 % Sodium Chloride Flush 3 Ml Syringe) 3 ml IVFLUSH QSHIFT [facility] Last Admin: 05/07/25 08:12 Dose: 3 ml Tamsulosin HCl (Tamsulosin Hcl 0.4 Mg Capsule) 0.4 mg PO DAILY [facility] Last Admin: 05/07/25 08:12 Dose: 0.4 mg Home Medications ?Medication ?Instructions ?Recorded ?Confirmed ?Last Taken ?Type clonazepam 0.5 mg tablet 0.5 mg PO BID PRN Anxiety 05/04/25 Unknown History clonidine HCl 0.3 mg tablet 0.3 mg PO BEDTIME 09/29/24 05/04/25 05/02/25 History doxepin 100 mg capsule 100 mg PO BEDTIME 09/29/24 1 05/02/25 History montelukast 10 mg tablet 10 mg PO DAILY asthma 05/04/2525 History pantoprazole 40 mg tablet,delayed 40 mg PO BID@0630,16 30 09/29/24 05/04/25 05/02/25 History release pregabalin 150 mg capsule 150 mg PO DAILY 09/29/2410/2405/02/25 History pregabalin 150 mg capsule 300 mg PO BEDTIME 09/29/24 1 05/02/25 History tramadol 50 mg tablet 50 mg PO Q12H PRN pain 09/2905/04/25 Unknown History albuterol sulfate 90 mcg/actuation 2 puff inhalation Q 6H PRN 12/10/24 05/04/25 Unknown History aerosol inhaler (Ventolin HFA) Shortness Of Breath Or Wheezing fluticasone propionate 50 1 spray intranasal BID PRN 1 05/04/25 Unknown History mcg/actuation nasal allergies spray,suspension glucagon 1 mg solution for 1 mg IM Q20M PRN Hypoglycem ia 05/04/25 05/04/25 Unknown History injection (Glucagon Emergency Kit) insulin glargine 100 unit/mL (3 85 unit subcut BEDTIME 05/04/25 05/04/25 05/02/25 History mL) subcutaneous pen (Lantus Solostar U-100 Insulin) insulin lispro 100 unit/mL See Protocol subcut TIDWM 1 05/04/25 05/02/25 History subcutaneous pen lamotrigine 25 mg tablet 50 mg PO BEDTIME 05/04/2505/02/25 History Physical Exam 2 Vital Signs: Vital Signs: Last Vital Signs Temp 97.5 F 05/07/25 08:00 Pulse 88 05/07/25 08:00 Resp 20 05/07/25 08:00 BP 162/76 H 05/07/25 08:00 Pulse Ox 97 05/07/25 08:00 O2 Del Method Room Air 05/07/25 08:00 O2 Flow Rate 2 05/06/25 15:20 BMI result Body Mass Index 26.6 Const: General: cooperative, healthy appearing, comfortable and no acute distress Orientation/consciousness: patient oriented x3 HEENT: Face and sinus: Yes normal facial exam Mouth: moist mucous membranes Neck: Neck: Yes normal visual inspection, Yes full ROM and Yes trachea midline Chest: Chest palpation & inspection: normal inspection of the chest Resp: Effort & Inspection: normal respiratory effort, able to speak in complete sentences and no respiratory distress GI: Inspection: Yes normal to inspection Back/Spine/Pelvis: Cervical Spine: normal cervical lordosis Thoracic/Lumbar Spine: thoracic and lumbar spine normal to inspection Skin: General skin exam: no rashes or lesions noted Neuro: General: patient oriented x3, tone normal and moves all extremities Extrem: General: Yes normal to inspection and Yes capillary refill normal Results Labs 05/05/25 04:19 05/06/25 10:46 Labs: Abnormal lab results 05/06/25 05/06/25 05/06/25 Range/Units 10:46 12:07 16:23 Anion Gap 11 L (12-20) BUN 5 L (9-16) mg/dL POC Glucose 233 H 220 H (60-115) mg/dL Random Glucose 273 H (60-115) mg/dL ALT 63 H (0-31) U/L Alkaline Phosphatase 129 H (39-117) U/L Urine Protein (Neg-Trace) mg/dL Urine Glucose (UA) (Negative) mg/dL Urine Blood (Negative) Urine Nitrite (Negative) Ur Leukocyte Esterase (Negative) Urine RBC (0-2) /HPF Urine WBC (0-5) /HPF 05/06/25 05/06/25 05/07/25 Range/Units 18:45 19:57 07:58 Anion Gap (12-20) BUN (9-16) mg/dL POC Glucose 195 H 167 H (60-115) mg/dL Random Glucose (60-115) mg/dL ALT (0-31) U/L Alkaline Phosphatase (39-117) U/L Urine Protein 100 (2+) H (Neg-Trace) mg/dL Urine Glucose (UA) 100 H (Negative) mg/dL Urine Blood Large (3+) H (Negative) Urine Nitrite Positive H (Negative) Ur Leukocyte Esterase Moderate (2+) H (Negative) Urine RBC >20 H (0-2) /HPF Urine WBC >50 H (0-5) /HPF BMP 05/06/25 10:46 Sodium 139 Potassium 3.6 Chloride 106 Carbon Dioxide 26 BUN 5 L Creatinine 0.64 Calcium 8.6 D Liver Function 05/06/25 Range/Units 10:46 Total Bilirubin 0.4 (0.0-1.0) mg/dL AST 24 (5-31) U/L ALT 63 H (0-31) U/L Alkaline Phosphatase 129 H (39-117) U/L Albumin 3.6 (3.5-5.0) g/dL Urine 05/06/25 Range/Units 18:45 Urine Color Yellow Urine Appearance Turbid Urine pH 7.0 (5.0-9.0) Ur Specific [place] 1.020 (1.005-1.025) Urine Protein 100 (2+) H (Neg-Trace) mg/dL Urine Glucose (UA) 100 H (Negative) mg/dL All other labs normal. Assessment and Plan (1) Hematuria due to acute cystitis: Status: Acute Plan Conservative therapy Procedures Date of Service Date of Service: 05/07/25
[2025-05-07 11:21] LABS: Hematocrit 35.0 % (37.0-47.0); Hemoglobin 11.6 g/dl (12.0-16.0); Mean Corpuscular HGB Conc 33.1 g/dl (31.0-35.0); Mean Corpuscular Hemoglobin 28.8 pg (27.0-33.0); Mean Corpuscular Volume 86.8 fL (80.0-98.0); NRBC Abs Auto 0.000 X10*3/uL (0.0-0.012); NRBC Pct Auto 0.0 /100WBC (0.0-0.2); Platelet Count 238 X10*3/uL (160-400); Red Blood Count 4.03 X10*6/uL (4.20-5.50); White Blood Count 11.2 X10*3/uL (4.8-10.8)
[2025-05-07 11:30] LABS: Glucose, Whole Blood 176 mg/dL (60-115)
[2025-05-07 11:39] LABS: Hemoglobin A1C 344.3019 umol/L; Total Hemoglobin (HGBA1C) 3038.3056 umol/L
[2025-05-07 11:40] LABS: Alanine Aminotransferase 44 U/L (0-31); Albumin Level 3.5 g/dL (3.5-5.0); Alkaline Phosphatase 129 U/L (39-117); Anion Gap 11 (12-20); Aspartate Amino Transferase 18 U/L (5-31); Blood Urea Nitrogen 5 mg/dL (9-16); Calcium 8.7 mg/dL (8.4-10.2); Carbon Dioxide 26 mmol/L (22-29); Chloride 104 mmol/L (96-108); Creatinine Clr Calc Pharmacy 106.1; Estimated Glomerular Filt Rate > 60; Potassium 3.3 mmol/L (3.3-5.1); Sodium 138 mmol/L (135-145); Total Protein 6.6 g/dL (6.5-8.0)
[2025-05-07 12:23] LABS: Lipase 32 U/L (8-78)
--- NOTE | 2025-05-07 12:37 | PM.EVENT ---
Event Note Date of Service: 05/08/25 Event Note: Patient describes having burning with urination She also says she had blood in her urine She seemed to be tender as well on the suprapubic area Consult Urology LFTs today okay Continue the rest of her care Time Spent With Patient Time: Total time managing care of this patient today ____ minutes.
--- NOTE | 2025-05-07 16:06 | P.PNIM_ITS ---
Subjective Subjective Date of Service: 05/07/25 Interval History: abd pain feels nauseated , unable to eat yet Review of Systems seems similar Review of Systems: Yes all other systems are reviewed and are negative Physical Exam 2 Exam: Exam: Appearance: Alert.? Oriented X3.? cvs: rrr, [id number] . res: clear to auscultation ,no rhonchii or wheezing abd: no rebound or guarding ,left flank area, also has suprapubic discomfort, bs present. ext pulses present , no cyanosis. neuro: axo3 , nonfocal. Vital Signs: Vital Signs: Last Vital Signs Temp 97.4 F 05/07/25 15:20 Pulse 76 05/07/25 15:20 Resp 16 05/07/25 15:20 BP 134/64 05/07/25 15:20 Pulse Ox 95 05/07/25 15:20 O2 Del Method Room Air 05/07/25 15:20 O2 Flow Rate 2 05/06/25 15:20 BMI result Body Mass Index 26.6 Objective Data Active Medications Acetaminophen/Butalbital/Caffeine (Butalb/Acetamin/Caff 50/325/40 Tablet) 1 tab PO Q6H PRN PRN Reason: haeadace Last Admin: 05/06/25 20:58 Dose: 1 tab Documented By: VENITA Albuterol Sulfate (Albuterol Sulfate (0.083%) 2.5 Mg/3 Ml Vial.Neb) 2.5 mg INHALE Q3H PRN PRN Reason: Shortness of Breath/Wheezing Albuterol Sulfate (Albuterol Sulfate 90 Mcg 8 Gm Inhaler) 2 puff INHALE Q6H PRN PRN Reason: Shortness Of Breath Or Wheezing Ceftriaxone Sodium (Ceftriaxone Sodium 1 Gm Vial) 1 gm IVPUSH Q24H [facility] Last Admin: 05/06/25 21:11 Dose: 1 gm Documented By: VENITA Clonazepam (Clonazepam 0.5 Mg Tablet) 0.5 mg PO BID PRN On Hold: 05/05/25 04:14 PRN Reason: Anxiety Clonidine HCl (Clonidine Hcl 0.1 Mg Tablet) 0.3 mg PO BEDTIME [facility]; Protocol On Hold: 05/05/25 04:13 Last Admin: 05/04/25 21:10 Dose: 0.3 mg Documented By: HO.TUMASY Dextrose (Dextrose 50 % 25 Gm/50 Ml Syringe) 25 gm IVPUSH Q15M PRN; Protocol PRN Reason: per Hypoglycemia Standing Ord. Diazepam (Diazepam 10 Mg/2 Ml Cartridge) 2.5 mg IVPUSH Q6H PRN PRN Reason: Alcohol Withdrawal Last Admin: 05/04/25 06:29 Dose: 2.5 mg Documented By: CLAUDETTE Doxepin HCl (Doxepin Hcl 25 Mg Capsule) 100 mg PO BEDTIME [facility] Last Admin: 05/06/25 20:58 Dose: 100 mg Documented By: VENITA Enoxaparin Sodium (Enoxaparin Sodium 40 Mg/0.4 Ml Syringe) 40 mg SUBCUT Q24H [facility] On Hold: 05/06/25 18:37 Last Admin: 05/06/25 08:50 Dose: 40 mg Documented By: ELA Fluticasone Propionate (Fluticasone Propionate Nasal 16 Gm [place]) 1 spray NOSTRIL-B BID PRN PRN Reason: allergies Glucagon (Glucagon Hcl 1 Mg Vial) 1 mg IM Q20M PRN PRN Reason: Hypoglycemia Glucose (Glucose Gel 15 Gm Gel..Gram.) 15 gm PO Q15M PRN; Protocol PRN Reason: per Hypoglycemia Standing Ord. Hydromorphone HCl (Hydromorphone Hcl 1 Mg/Ml Syringe) 0.5 mg IVPUSH Q4H PRN; Protocol PRN Reason: Pain, Severe (Pain Scale 7-10) Last Admin: 05/07/25 08:11 Dose: 0.5 mg Documented By: JOSE Sodium Chloride (Ns) 1,000 mls @ 100 mls/hr IVCONT .Q10H [facility] Last Admin: 05/07/25 08:53 Dose: 100 mls/hr Documented By: JOSE Insulin Human Lispro (Insulin Lispro 100 Unit/Ml 3 Ml Vial) 0 unit SUBCUT QIDACHS [facility]; Protocol Last Admin: 05/07/25 11:58 Dose: Not Given Documented By: JOSE Non-Admin Reason: No Insulin Coverage Lamotrigine (Lamotrigine 25 Mg Tablet) 50 mg PO BEDTIME [facility] Last Admin: 05/06/25 20:58 Dose: 50 mg Documented By: VENITA Montelukast Sodium (Montelukast Sodium 10 Mg Tablet) 10 mg PO DAILY [facility] Last Admin: 05/07/25 08:12 Dose: 10 mg Documented By: JOSE Ondansetron HCl (Ondansetron Hcl 4 Mg/2 Ml Vial) 4 mg IVPUSH Q8H PRN PRN Reason: Nausea and Vomiting Last Admin: 05/06/25 08:49 Dose: 4 mg Documented By: ELA Pantoprazole Sodium (Pantoprazole Sodium 40 Mg/10 Ml Vial) 40 mg IVPUSH Q12H [facility] Last Admin: 05/07/25 08:12 Dose: 40 mg Documented By: JOSE Pregabalin (Pregabalin 150 Mg Capsule) 300 mg PO BEDTIME [facility] On Hold: 05/05/25 04:13 Last Admin: 05/04/25 21:10 Dose: 300 mg Documented By: RD Sodium Chloride (0.9 % Sodium Chloride Flush 3 Ml Syringe) 3 ml IVFLUSH QSHIFT [facility] Last Admin: 05/07/25 08:12 Dose: 3 ml Documented By: JOSE Tamsulosin HCl (Tamsulosin Hcl 0.4 Mg Capsule) 0.4 mg PO DAILY [facility] Last Admin: 05/07/25 08:12 Dose: 0.4 mg Documented By: JOSE Labs 05/07/25 10:28 05/07/25 10:28 Labs: Laboratory Results - last 24 hr 05/06/25 05/06/25 05/06/25 16:23 18:45 19:57 MCV MCH MCHC RDW Plt Count MPV Absolute Nucleated RBC Nucleated RBC % (auto) Anion Gap Estim Creat Clear Calc Estimated GFR POC Glucose 220 H 195 H Random Glucose Estimat Average Glucose Hemoglobin A1c % Calcium Total Bilirubin AST ALT Alkaline Phosphatase Total Protein Albumin Lipase Urine Color Yellow Urine Appearance Turbid Urine pH 7.0 Ur Specific [place] 1.020 Urine Protein 100 (2+) H Urine Glucose (UA) 100 H Urine Ketones 40 Urine Blood Large (3+) H Urine Nitrite Positive H Ur Leukocyte Esterase Moderate (2+) H Urine RBC >20 H Urine WBC >50 H Ur Squamous Epith Cells 0-2 Urine Bacteria 4+ Hyaline Casts 0-2 05/07/25 05/07/25 05/07/25 07:58 10:28 11:09 MCV 86.8 MCH 28.8 MCHC 33.1 RDW 12.9 Plt Count 238 MPV 9.7 Absolute Nucleated RBC 0.000 Nucleated RBC % (auto) 0.0 Anion Gap 11 L Estim Creat Clear Calc 106.1 Estimated GFR > 60 POC Glucose 167 H 176 H Random Glucose 167 H Estimat Average Glucose 312 Hemoglobin A1c % 12.5 H Calcium 8.7 Total Bilirubin 0.5 AST 18 ALT 44 H Alkaline Phosphatase 129 H Total Protein 6.6 Albumin 3.5 Lipase 32 Urine Color Urine Appearance Urine pH Ur Specific [place] Urine Protein Urine Glucose (UA) Urine Ketones Urine Blood Urine Nitrite Ur Leukocyte Esterase Urine RBC Urine WBC Ur Squamous Epith Cells Urine Bacteria Hyaline Casts Microbiology Microbiology Results: Microbiology 05/06/25 18:45 Urine Culture - Preliminary Urine clean catch - Clean Catch Midstream Gram negative darryl Assessment and Plan (1) Acute pancreatitis: Status: Acute Assessment and Plan: 50 y/o woman with PMHx significant for GERD, pancreatitis and gastroparesis who presents to the ED with: Toxic metabolic encephalopathy: Secondary to medications Received Narcan 05/05/25 . Patient seems significantly better, mental status is at baseline. Abdominal pain secondary to acute pancreatitis associated acute esophagitis. Etiology unclear. EtOH level = 13; pt denied alcohol abuse. Lipase higher that prior. Not taking diclofenac or Ozempic. No significant elevation of triglycerides. Check abdominal ultrasound to assess for cholelithiasis and/or cholecystitis:No cholelithiasis or gross choledocholithiasis. CRP is4 plan: lfts imrpoving , lipase normal has significant abdominal pain, suprapubic pain, hematuria Added CT abdomen with IV contrast. Gi rec-Continue IV fluids due to low p.o. intake, also borderline blood pressure,Pain control and antiemetic therapy as needed. Protonix 40 mg IV twice daily. surgery eval-for ?bilary pancreatitis -outpatient management . Gi eval recommended for surgery evaluation, continue above management Hematuria mild/UTI: urine culture pending continue ceftriaxone Elevated LFTs. Likely secondary to hepatic steatosis. lfts imrpoving , hepatitis screen A,B,C nonreactive. urine drug screen-negative Type 2 diabetes. fs with sliding scale coverage. Depression/anxiety/PTSD. Continue home meds. Fibromyalgia. Continue Lyrica. Hold trauma as the patient has been receiving Dilaudid. History of seizure. Continue Lamictal. Intermittent asthma/COPD. Continue home inhalers. Albuterol nebs as needed. Code status: Full DVT prophylaxis: Lovenox ongoing need hospitalization for acute pancreatitis and esophagitis therapy with with IV pain meds IV anterior meds and IV fluids. Quality Stroke Does the patient have a stroke diagnosis?: No VTE Prior VTE?: No VTE Risk Level:: Medical - moderate - high VTE Device Contraindication: Treatment Not Indicated VTE Drug Contraindication: N/A - Med Ordered
[2025-05-07 16:30] LABS: Glucose, Whole Blood 165 mg/dL (60-115)
[2025-05-07] MEDS: iohexoL 350 MG/ML 100 ML INFUS..BTL IV (17:30)
[2025-05-07 20:19] LABS: Glucose, Whole Blood 151 mg/dL (60-115)
[2025-05-08 01:04] VITALS: BP 142/72
[2025-05-08 02:56] VITALS: BP 124/81; PULSE 81; RESP 18; TEMP 36.4; O2SAT 97
[2025-05-08 07:22] LABS: Glucose, Whole Blood 127 mg/dL (60-115)
[2025-05-08 08:36] VITALS: BP 115/71; PULSE 82; RESP 18; TEMP 36.1; O2SAT 97
--- NOTE | 2025-05-08 09:50 | P.PNGS_ITS ---
Subjective Subjective Date of Service: 05/08/25 Interval history: She feels much better Abdominal pain much improved No nausea or vomiting Physical Exam 2 Vital Signs: Vital Signs: Last Vital Signs Temp 96.9 F 05/08/25 08:36 Pulse 82 05/08/25 08:36 Resp 18 05/08/25 08:36 BP 115/71 05/08/25 08:36 Pulse Ox 97 05/08/25 08:36 O2 Del Method Room Air 05/08/25 08:36 O2 Flow Rate 2 05/06/25 15:20 BMI result Body Mass Index 26.6 Const: General: comfortable and no acute distress Resp: Effort & Inspection: normal respiratory effort Cardio: Rate: regular rate GI: Other: Minimally tender diffusely, not distended Palpation (GI): Soft to palpation, not firm and no guarding Objective Data Active Medications Acetaminophen/Butalbital/Caffeine (Butalb/Acetamin/Caff 50/325/40 Tablet) 1 tab PO Q6H PRN PRN Reason: haeadace Last Admin: 05/06/25 20:58 Dose: 1 tab Documented By: VENITA Albuterol Sulfate (Albuterol Sulfate (0.083%) 2.5 Mg/3 Ml Vial.Neb) 2.5 mg INHALE Q3H PRN PRN Reason: Shortness of Breath/Wheezing Albuterol Sulfate (Albuterol Sulfate 90 Mcg 8 Gm Inhaler) 2 puff INHALE Q6H PRN PRN Reason: Shortness Of Breath Or Wheezing Ceftriaxone Sodium (Ceftriaxone Sodium 1 Gm Vial) 1 gm IVPUSH Q24H [facility] Last Admin: 05/07/25 20:56 Dose: 1 gm Documented By: FLAKITA Clonazepam (Clonazepam 0.5 Mg Tablet) 0.5 mg PO BID PRN On Hold: 05/05/25 04:14 PRN Reason: Anxiety Clonidine HCl (Clonidine Hcl 0.1 Mg Tablet) 0.3 mg PO BEDTIME [facility]; Protocol On Hold: 05/05/25 04:13 Last Admin: 05/04/25 21:10 Dose: 0.3 mg Documented By: RD Dextrose (Dextrose 50 % 25 Gm/50 Ml Syringe) 25 gm IVPUSH Q15M PRN; Protocol PRN Reason: per Hypoglycemia Standing Ord. Diazepam (Diazepam 10 Mg/2 Ml Cartridge) 2.5 mg IVPUSH Q6H PRN PRN Reason: Alcohol Withdrawal Last Admin: 05/04/25 06:29 Dose: 2.5 mg Documented By: CLAUDETTE Doxepin HCl (Doxepin Hcl 25 Mg Capsule) 100 mg PO BEDTIME [facility] Last Admin: 05/07/25 20:56 Dose: 100 mg Documented By: FLAKITA Enoxaparin Sodium (Enoxaparin Sodium 40 Mg/0.4 Ml Syringe) 40 mg SUBCUT Q24H [facility] On Hold: 05/06/25 18:37 Last Admin: 05/06/25 08:50 Dose: 40 mg Documented By: TYLERARTrevin Fluticasone Propionate (Fluticasone Propionate Nasal 16 Gm [place]) 1 spray NOSTRIL-B BID PRN PRN Reason: allergies Glucagon (Glucagon Hcl 1 Mg Vial) 1 mg IM Q20M PRN PRN Reason: Hypoglycemia Glucose (Glucose Gel 15 Gm Gel..Gram.) 15 gm PO Q15M PRN; Protocol PRN Reason: per Hypoglycemia Standing Ord. Hydromorphone HCl (Hydromorphone Hcl 1 Mg/Ml Syringe) 0.5 mg IVPUSH Q4H PRN; Protocol PRN Reason: Pain, Severe (Pain Scale 7-10) Last Admin: 05/08/25 03:52 Dose: 0.5 mg Documented By: FLAKITA Sodium Chloride (Ns) 1,000 mls @ 100 mls/hr IVCONT .Q10H [facility] Last Admin: 05/08/25 03:44 Dose: 100 mls/hr Documented By: FLAKITA Insulin Human Lispro (Insulin Lispro 100 Unit/Ml 3 Ml Vial) 0 unit SUBCUT QIDACHS [facility]; Protocol Last Admin: 05/08/25 07:29 Dose: Not Given Documented By: CJ Non-Admin Reason: No Insulin Coverage Lamotrigine (Lamotrigine 25 Mg Tablet) 50 mg PO BEDTIME [facility] Last Admin: 05/07/25 20:57 Dose: 50 mg Documented By: FLAKITA Montelukast Sodium (Montelukast Sodium 10 Mg Tablet) 10 mg PO DAILY [facility] Last Admin: 05/07/25 08:12 Dose: 10 mg Documented By: JOSE Ondansetron HCl (Ondansetron Hcl 4 Mg/2 Ml Vial) 4 mg IVPUSH Q8H PRN PRN Reason: Nausea and Vomiting Last Admin: 05/08/25 09:19 Dose: 4 mg Documented By: CJ Pregabalin (Pregabalin 150 Mg Capsule) 300 mg PO BEDTIME [facility] On Hold: 05/05/25 04:13 Last Admin: 05/04/25 21:10 Dose: 300 mg Documented By: RD Sodium Chloride (0.9 % Sodium Chloride Flush 3 Ml Syringe) 3 ml IVFLUSH QSHIFT [facility] Last Admin: 05/08/25 07:17 Dose: Not Given Documented By: CJ Non-Admin Reason: IV Running Tamsulosin HCl (Tamsulosin Hcl 0.4 Mg Capsule) 0.4 mg PO DAILY [facility] Last Admin: 05/07/25 08:12 Dose: 0.4 mg Documented By: JOSE Labs 05/07/25 10:28 05/07/25 10:28 Labs: Laboratory Results - last 24 hr 05/07/25 05/07/25 05/07/25 10:28 11:09 16:27 MCV 86.8 MCH 28.8 MCHC 33.1 RDW 12.9 Plt Count 238 MPV 9.7 Absolute Nucleated RBC 0.000 Nucleated RBC % (auto) 0.0 Anion Gap 11 L Estim Creat Clear Calc 106.1 Estimated GFR > 60 POC Glucose 176 H 165 H Random Glucose 167 H Estimat Average Glucose 312 Hemoglobin A1c % 12.5 H Calcium 8.7 Total Bilirubin 0.5 AST 18 ALT 44 H Alkaline Phosphatase 129 H Total Protein 6.6 Albumin 3.5 Lipase 32 05/07/25 05/08/25 20:15 07:14 MCV MCH MCHC RDW Plt Count MPV Absolute Nucleated RBC Nucleated RBC % (auto) Anion Gap Estim Creat Clear Calc Estimated GFR POC Glucose 151 H 127 H Random Glucose Estimat Average Glucose Hemoglobin A1c % Calcium Total Bilirubin AST ALT Alkaline Phosphatase Total Protein Albumin Lipase Microbiology Microbiology Results: Microbiology 05/06/25 18:45 Urine Culture - Final Urine clean catch - Clean Catch Midstream Escherichia coli Procedures Date of Service Date of Service: 05/08/25 Progress Note: A&P Assessment and plan (1) Acute pancreatitis: Status: Acute Assessment and Plan: Lipase was only minimally elevated Uncertain if abdominal pain was secondary to pancreatic problem No gallstones She feels much better Okay to start on clear liquids and gradually advance as tolerated Also described hematuria Looks well overall No surgical intervention necessary Time Spent With Patient Time: Total time managing care of this patient today ____ minutes. Quality Stroke Does the patient have a stroke diagnosis?: No VTE Prior VTE?: No VTE Risk Level:: Medical - moderate - high VTE Device Contraindication: Treatment Not Indicated VTE Drug Contraindication: N/A - Med Ordered
--- NOTE | 2025-05-08 11:23 | P.PNGI_ITS ---
Subjective Subjective Date of Service: 05/08/25 Interval History: Seen at bedside reports persistent lower abdominal pain. Has improvement in appetite. No nausea. CT images personally reviewed, no evidence of pancreatitis on imaging. Gallbladder sludge noted. Critical Care Time (minutes): 0 Physical Exam 2 Exam: Exam: No acute distress Abdomen soft, tender in suprapubic region and right upper quadrant, nondistended Vital Signs: Vital Signs: Last Vital Signs Temp 96.9 F 05/08/25 08:36 Pulse 82 05/08/25 08:36 Resp 18 05/08/25 08:36 BP 115/71 05/08/25 08:36 Pulse Ox 97 05/08/25 08:36 O2 Del Method Room Air 05/08/25 08:36 O2 Flow Rate 2 05/06/25 15:20 BMI result Body Mass Index 26.6 Objective Data Labs 05/07/25 10:28 05/07/25 10:28 Labs: Laboratory Results - last 24 hr 05/07/25 05/07/25 05/07/25 10:28 11:09 16:27 Sodium 138 Potassium 3.3 Chloride 104 Carbon Dioxide 26 Anion Gap 11 L BUN 5 L Creatinine 0.64 Estim Creat Clear Calc 106.1 Estimated GFR > 60 POC Glucose 176 H 165 H Random Glucose 167 H Estimat Average Glucose 312 Hemoglobin A1c % 12.5 H Calcium 8.7 Total Bilirubin 0.5 AST 18 ALT 44 H Alkaline Phosphatase 129 H Total Protein 6.6 Albumin 3.5 Lipase 32 05/07/25 05/08/25 20:15 07:14 Sodium Potassium Chloride Carbon Dioxide Anion Gap BUN Creatinine Estim Creat Clear Calc Estimated GFR POC Glucose 151 H 127 H Random Glucose Estimat Average Glucose Hemoglobin A1c % Calcium Total Bilirubin AST ALT Alkaline Phosphatase Total Protein Albumin Lipase Microbiology Microbiology Results: Microbiology 05/06/25 18:45 Urine clean catch - Clean Catch Midstream Urine Culture - Final Escherichia coli Procedures Date of Service Date of Service: 05/08/25 Progress Note: A&P Assessment and plan (1) Elevated lipase: Status: Acute (2) Abdominal pain: Status: Inactive (3) Hematuria due to acute cystitis: Status: Acute Plan Patient presented with acute abdominal pain with elevated LFTs and lipase. Suspect does have some component of symptomatic cholelithiasis/sludge. Current symptoms lower abdominal pain with burning micturition likely secondary to cystitis. Appreciate surgical evaluation, patient will continue to follow-up as outpatient for discussion regarding indication of cholecystectomy. Will sign off. Please do not hesitate to call back for any questions or concerns. Time Spent With Patient Time: Total time managing care of this patient today ____ minutes. Quality Stroke Does the patient have a stroke diagnosis?: No VTE Prior VTE?: No VTE Risk Level:: Medical - moderate - high VTE Device Contraindication: Treatment Not Indicated VTE Drug Contraindication: N/A - Med Ordered
[2025-05-08 11:57] LABS: Glucose, Whole Blood 138 mg/dL (60-115)
--- NOTE | 2025-05-08 13:47 | HO.PM.IMPN ---
Subjective Subjective Date of Service: 05/08/25 Interval History: abd pain feels nauseated , unable to eat yet Review of Systems Review of Systems: Yes all other systems are reviewed and are negative Physical Exam Exam: Exam: Appearance: Alert.? Oriented X3.? cvs: rrr, [id number] . res: clear to auscultation ,no rhonchii or wheezing abd: no rebound or guarding ,left flank area, also has suprapubic discomfort, bs present. ext pulses present , no cyanosis. neuro: axo3 , nonfocal. Vital Signs: Vital Signs: Last Vital Signs Temp 96.9 F 05/08/25 08:36 Pulse 82 05/08/25 08:36 Resp 18 05/08/25 08:36 BP 115/71 05/08/25 08:36 Pulse Ox 97 05/08/25 08:36 O2 Del Method Room Air 05/08/25 08:36 O2 Flow Rate 2 05/06/25 15:20 BMI result Body Mass Index 26.6 Objective Data Active Medications Acetaminophen/Butalbital/Caffeine (Butalb/Acetamin/Caff 50/325/40 Tablet) 1 tab PO Q6H PRN PRN Reason: haeadace Last Admin: 05/06/25 20:58 Dose: 1 tab Documented By: VENITA Albuterol Sulfate (Albuterol Sulfate (0.083%) 2.5 Mg/3 Ml Vial.Neb) 2.5 mg INHALE Q3H PRN PRN Reason: Shortness of Breath/Wheezing Albuterol Sulfate (Albuterol Sulfate 90 Mcg 8 Gm Inhaler) 2 puff INHALE Q6H PRN PRN Reason: Shortness Of Breath Or Wheezing Ceftriaxone Sodium (Ceftriaxone Sodium 1 Gm Vial) 1 gm IVPUSH Q24H SHANTE Last Admin: 05/07/25 20:56 Dose: 1 gm Documented By: FLAKITA Clonazepam (Clonazepam 0.5 Mg Tablet) 0.5 mg PO BID PRN On Hold: 05/05/25 04:14 PRN Reason: Anxiety Clonidine HCl (Clonidine Hcl 0.1 Mg Tablet) 0.3 mg PO BEDTIME SHANTE; Protocol On Hold: 05/05/25 04:13 Last Admin: 05/04/25 21:10 Dose: 0.3 mg Documented By: RD Dextrose (Dextrose 50 % 25 Gm/50 Ml Syringe) 25 gm IVPUSH Q15M PRN; Protocol PRN Reason: per Hypoglycemia Standing Ord. Diazepam (Diazepam 10 Mg/2 Ml Cartridge) 2.5 mg IVPUSH Q6H PRN PRN Reason: Alcohol Withdrawal Last Admin: 05/04/25 06:29 Dose: 2.5 mg Documented By: CLAUDETTE Doxepin HCl (Doxepin Hcl 25 Mg Capsule) 100 mg PO BEDTIME SHANTE Last Admin: 05/07/25 20:56 Dose: 100 mg Documented By: FLAKITA Enoxaparin Sodium (Enoxaparin Sodium 40 Mg/0.4 Ml Syringe) 40 mg SUBCUT Q24H SHANTE On Hold: 05/06/25 18:37 Last Admin: 05/06/25 08:50 Dose: 40 mg Documented By: ELA Fluticasone Propionate (Fluticasone Propionate Nasal 16 Gm [place]) 1 spray NOSTRIL-B BID PRN PRN Reason: allergies Glucagon (Glucagon Hcl 1 Mg Vial) 1 mg IM Q20M PRN PRN Reason: Hypoglycemia Glucose (Glucose Gel 15 Gm Gel..Gram.) 15 gm PO Q15M PRN; Protocol PRN Reason: per Hypoglycemia Standing Ord. Hydromorphone HCl (Hydromorphone Hcl 1 Mg/Ml Syringe) 0.5 mg IVPUSH Q4H PRN; Protocol PRN Reason: Pain, Severe (Pain Scale 7-10) Last Admin: 05/08/25 11:05 Dose: 0.5 mg Documented By: CJ Sodium Chloride (Ns) 1,000 mls @ 100 mls/hr IVCONT .Q10H ON LICENSE OF [facility] Last Admin: 05/08/25 12:53 Dose: 100 mls/hr Documented By: CJ Insulin Human Lispro (Insulin Lispro 100 Unit/Ml 3 Ml Vial) 0 unit SUBCUT QIDACHS ON LICENSE OF [facility]; Protocol Last Admin: 05/08/25 11:58 Dose: Not Given Documented By: CJ Non-Admin Reason: No Insulin Coverage Lamotrigine (Lamotrigine 25 Mg Tablet) 50 mg PO BEDTIME SHANTE Last Admin: 05/07/25 20:57 Dose: 50 mg Documented By: FLAKITA Montelukast Sodium (Montelukast Sodium 10 Mg Tablet) 10 mg PO DAILY ON LICENSE OF [facility] Last Admin: 05/08/25 10:42 Dose: Not Given Documented By: CJ Non-Admin Reason: Nausea Ondansetron HCl (Ondansetron Hcl 4 Mg/2 Ml Vial) 4 mg IVPUSH Q8H PRN PRN Reason: Nausea and Vomiting Last Admin: 05/08/25 09:19 Dose: 4 mg Documented By: CJ Pregabalin (Pregabalin 150 Mg Capsule) 300 mg PO BEDTIME ON LICENSE OF [facility] On Hold: 05/05/25 04:13 Last Admin: 05/04/25 21:10 Dose: 300 mg Documented By: TUMASY Sodium Chloride (0.9 % Sodium Chloride Flush 3 Ml Syringe) 3 ml IVFLUSH QSHIFT ON LICENSE OF [facility] Last Admin: 05/08/25 07:17 Dose: Not Given Documented By: CJ Non-Admin Reason: IV Running Tamsulosin HCl (Tamsulosin Hcl 0.4 Mg Capsule) 0.4 mg PO DAILY ON LICENSE OF [facility] Last Admin: 05/08/25 10:39 Dose: Not Given Documented By: CJ Non-Admin Reason: Nausea Labs 05/07/25 10:28 05/07/25 10:28 Labs: Laboratory Results - last 24 hr 05/07/25 05/07/25 05/08/25 16:27 20:15 07:14 POC Glucose 165 H 151 H 127 H 05/08/25 11:50 POC Glucose 138 H Microbiology Microbiology Results: Microbiology 05/06/25 18:45 Urine Culture - Final Urine clean catch - Clean Catch Midstream Escherichia coli Assessment and Plan (1) Acute pancreatitis: Status: Acute Assessment and Plan: 50 y/o woman with PMHx significant for GERD, pancreatitis and gastroparesis who presents to the ED with: Toxic metabolic encephalopathy: Secondary to medications Received Narcan 05/05/25 . Patient seems significantly better, mental status is at baseline. Abdominal pain secondary to acute pancreatitis associated acute esophagitis. Etiology unclear. EtOH level = 13; pt denied alcohol abuse. Lipase higher that prior. Not taking diclofenac or Ozempic. No significant elevation of triglycerides. Check abdominal ultrasound to assess for cholelithiasis and/or cholecystitis:No cholelithiasis or gross choledocholithiasis. CRP is4 plan: lfts imrpoving , lipase normal has significant abdominal pain, suprapubic pain, hematuria repated CT abdomen with IV contrast on 05/06/25:Urinary bladder wall thickening suggestive of cystitis. No CT evidence of acute pyelonephritis. 2. No CT evidence of acute or chronic pancreatitis. 3. Somewhat distended gallbladder with sludge versus artifact. 4. Mild circumferential wall thickening of distal thoracic esophagus, esophagitis not excluded. Correlate clinically. 5. Stable bilateral adrenal masses. Gi rec-Continue IV fluids due to low p.o. intake, also borderline blood pressure,Pain control and antiemetic therapy as needed. Protonix 40 mg IV twice daily. surgery eval-for ?bilary pancreatitis -outpatient management . Hematuria mild/UTI: urine culture ecoli -senstive to caftriaxone continue ceftriaxone Elevated LFTs. Likely secondary to hepatic steatosis. lfts imrpoving , hepatitis screen A,B,C nonreactive. urine drug screen-negative Type 2 diabetes. fs with sliding scale coverage. Depression/anxiety/PTSD. Continue home meds. Fibromyalgia. Continue Lyrica. Hold trauma as the patient has been receiving Dilaudid. History of seizure. Continue Lamictal. Intermittent asthma/COPD. Continue home inhalers. Albuterol nebs as needed. Code status: Full DVT prophylaxis: Lovenox ongoing need hospitalization for acute esophagitis/pantceatitis ,uti - therapy with with IV pain meds IV anterior meds and IV fluids,iv antibiotics ,unable to tolerate po. Quality Stroke Does the patient have a stroke diagnosis?: No VTE Prior VTE?: No VTE Risk Level:: Medical - moderate - high VTE Device Contraindication: Treatment Not Indicated VTE Drug Contraindication: N/A - Med Ordered
--- NOTE | 2025-05-08 14:58 | PM.EVENT ---
Event Note Date of Service: 05/08/25 Event Note: Seen on afternoon rounds Denies abdominal pain Has been on full liquids Seen having bread on rounds Says she is doing well Abdomen is soft and nontender Etiology of abdominal pain uncertain Radiographically no pancreatitis No gallstones on ultrasound Diet as tolerated Time Spent With Patient Time: Total time managing care of this patient today ____ minutes.
[2025-05-08 16:08] VITALS: BP 138/75; PULSE 91; RESP 18; TEMP 36.7; O2SAT 95
[2025-05-08 16:48] LABS: Glucose, Whole Blood 251 mg/dL (60-115)
[2025-05-08 19:55] VITALS: BP 146/77; PULSE 87; RESP 18; TEMP 37.3; O2SAT 98
[2025-05-08 20:14] LABS: Glucose, Whole Blood 296 mg/dL (60-115)
[2025-05-08] MEDS: 0.9 % Sodium Chloride Flush 3 ML SYRINGE IVFLUSH (20:46)
[2025-05-08 23:14] VITALS: BP 162/90; PULSE 89; RESP 18; TEMP 37.3; O2SAT 97
[2025-05-09 03:44] VITALS: BP 96/55; PULSE 88; RESP 18; TEMP 37.2; O2SAT 97
[2025-05-09 06:10] LABS: Alanine Aminotransferase 27 U/L (0-31); Albumin Level 3.4 g/dL (3.5-5.0); Alkaline Phosphatase 105 U/L (39-117); Anion Gap 12 (12-20); Aspartate Amino Transferase 18 U/L (5-31); Blood Urea Nitrogen 6 mg/dL (9-16); Calcium 8.1 mg/dL (8.4-10.2); Carbon Dioxide 25 mmol/L (22-29); Chloride 108 mmol/L (96-108); Creatinine Clr Calc Pharmacy 101.3; Estimated Glomerular Filt Rate > 60; Potassium 3.5 mmol/L (3.3-5.1); Sodium 141 mmol/L (135-145); Total Protein 6.3 g/dL (6.5-8.0)
[2025-05-09 07:41] LABS: Glucose, Whole Blood 226 mg/dL (60-115)
[2025-05-09 07:42] VITALS: BP 122/67; PULSE 87; RESP 16; TEMP 36.3; O2SAT 97
--- NOTE | 2025-05-09 07:56 | P.PNGS_ITS ---
Subjective Subjective Date of Service: 05/09/25 Interval history: She says she feels well Denies abdominal pain No nausea or vomiting Physical Exam 2 Vital Signs: Vital Signs: Last Vital Signs Temp 97.3 F 05/09/25 07:42 Pulse 87 05/09/25 07:42 Resp 16 05/09/25 07:42 BP 122/67 05/09/25 07:42 Pulse Ox 97 05/09/25 07:42 O2 Del Method Room Air 05/09/25 07:42 O2 Flow Rate 2 05/06/25 15:20 BMI result Body Mass Index 26.6 Const: General: comfortable and no acute distress Resp: Effort & Inspection: normal respiratory effort Cardio: Rate: regular rate GI: Inspection: No distended Palpation (GI): Soft to palpation, not firm, nontender and no guarding Objective Data Active Medications Acetaminophen/Butalbital/Caffeine (Butalb/Acetamin/Caff 50/325/40 Tablet) 1 tab PO Q6H PRN PRN Reason: haeadace Last Admin: 05/06/25 20:58 Dose: 1 tab Documented By: VENITA Albuterol Sulfate (Albuterol Sulfate (0.083%) 2.5 Mg/3 Ml Vial.Neb) 2.5 mg INHALE Q3H PRN PRN Reason: Shortness of Breath/Wheezing Albuterol Sulfate (Albuterol Sulfate 90 Mcg 8 Gm Inhaler) 2 puff INHALE Q6H PRN PRN Reason: Shortness Of Breath Or Wheezing Ceftriaxone Sodium (Ceftriaxone Sodium 1 Gm Vial) 1 gm IVPUSH Q24H SHANTE Last Admin: 05/08/25 20:46 Dose: 1 gm Documented By: FLAKITA Clonazepam (Clonazepam 0.5 Mg Tablet) 0.5 mg PO BID PRN On Hold: 05/05/25 04:14 PRN Reason: Anxiety Clonidine HCl (Clonidine Hcl 0.1 Mg Tablet) 0.3 mg PO BEDTIME SHANTE; Protocol On Hold: 05/05/25 04:13 Last Admin: 05/04/25 21:10 Dose: 0.3 mg Documented By: RD Dextrose (Dextrose 50 % 25 Gm/50 Ml Syringe) 25 gm IVPUSH Q15M PRN; Protocol PRN Reason: per Hypoglycemia Standing Ord. Diazepam (Diazepam 10 Mg/2 Ml Cartridge) 2.5 mg IVPUSH Q6H PRN PRN Reason: Alcohol Withdrawal Last Admin: 05/04/25 06:29 Dose: 2.5 mg Documented By: CLAUDETTE Diphenhydramine HCl (Diphenhydramine Hcl 25 Mg Capsule) 25 mg PO Q6H PRN PRN Reason: Itching Last Admin: 05/08/25 18:11 Dose: 25 mg Documented By: MIKE Doxepin HCl (Doxepin Hcl 25 Mg Capsule) 100 mg PO BEDTIME SHANTE Last Admin: 05/08/25 20:45 Dose: 100 mg Documented By: FLAKITA Enoxaparin Sodium (Enoxaparin Sodium 40 Mg/0.4 Ml Syringe) 40 mg SUBCUT Q24H SHANTE On Hold: 05/06/25 18:37 Last Admin: 05/06/25 08:50 Dose: 40 mg Documented By: TYLERARTrevin Fluticasone Propionate (Fluticasone Propionate Nasal 16 Gm [place]) 1 spray NOSTRIL-B BID PRN PRN Reason: allergies Glucagon (Glucagon Hcl 1 Mg Vial) 1 mg IM Q20M PRN PRN Reason: Hypoglycemia Glucose (Glucose Gel 15 Gm Gel..Gram.) 15 gm PO Q15M PRN; Protocol PRN Reason: per Hypoglycemia Standing Ord. Hydromorphone HCl (Hydromorphone Hcl 1 Mg/Ml Syringe) 0.5 mg IVPUSH Q4H PRN; Protocol PRN Reason: Pain, Severe (Pain Scale 7-10) Last Admin: 05/09/25 02:25 Dose: 0.5 mg Documented By: FLAKITA Sodium Chloride (Ns) 1,000 mls @ 100 mls/hr IVCONT .Q10H SHANTE Last Admin: 05/08/25 22:45 Dose: 100 mls/hr Documented By: FLAKITA Insulin Human Lispro (Insulin Lispro 100 Unit/Ml 3 Ml Vial) 0 unit SUBCUT QIDACHS [facility]; Protocol Last Admin: 05/08/25 20:45 Dose: 6 unit Documented By: FLAKITA Lamotrigine (Lamotrigine 25 Mg Tablet) 50 mg PO BEDTIME SHANTE Last Admin: 05/08/25 20:45 Dose: 50 mg Documented By: FLAKITA Montelukast Sodium (Montelukast Sodium 10 Mg Tablet) 10 mg PO DAILY [facility] Last Admin: 05/08/25 10:42 Dose: Not Given Documented By: CJ Non-Admin Reason: Nausea Ondansetron HCl (Ondansetron Hcl 4 Mg/2 Ml Vial) 4 mg IVPUSH Q8H PRN PRN Reason: Nausea and Vomiting Last Admin: 05/08/25 09:19 Dose: 4 mg Documented By: CJ Pregabalin (Pregabalin 150 Mg Capsule) 300 mg PO BEDTIME [facility] Last Admin: 05/08/25 21:26 Dose: 300 mg Documented By: FLAKITA Sodium Chloride (0.9 % Sodium Chloride Flush 3 Ml Syringe) 3 ml IVFLUSH QSHIFT [facility] Last Admin: 05/08/25 20:46 Dose: 3 ml Documented By: FLAKITA Tamsulosin HCl (Tamsulosin Hcl 0.4 Mg Capsule) 0.4 mg PO DAILY [facility] Last Admin: 05/08/25 10:39 Dose: Not Given Documented By: CJ Non-Admin Reason: Nausea Labs 05/07/25 10:28 05/09/25 05:01 Labs: Laboratory Results - last 24 hr 05/08/25 05/08/25 05/08/25 11:50 16:43 20:06 Hold Purple Top Anion Gap Estim Creat Clear Calc Estimated GFR POC Glucose 138 H 251 H 296 H Random Glucose Calcium Total Bilirubin AST ALT Alkaline Phosphatase Total Protein Albumin 05/09/25 05/09/25 05:01 07:38 Hold Purple Top SEE NOTE Anion Gap 12 Estim Creat Clear Calc 101.3 Estimated GFR > 60 POC Glucose 226 H Random Glucose 274 H Calcium 8.1 L D Total Bilirubin 0.2 AST 18 ALT 27 Alkaline Phosphatase 105 Total Protein 6.3 L Albumin 3.4 L Microbiology Microbiology Results: Microbiology 05/06/25 18:45 Urine Culture - Final Urine clean catch - Clean Catch Midstream Escherichia coli Procedures Date of Service Date of Service: 05/09/25 Progress Note: A&P Assessment and plan (1) Elevated lipase: Status: Acute Assessment and Plan: Denies abdominal pain now Tolerating diet Abdomen is soft and benign and nontender No CAT scan findings suggestive of pancreatitis Okay to DC home Okay to follow up in the office as needed PPI Time Spent With Patient Time: Total time managing care of this patient today ____ minutes. Quality Stroke Does the patient have a stroke diagnosis?: No VTE Prior VTE?: No VTE Risk Level:: Medical - moderate - high VTE Device Contraindication: Treatment Not Indicated VTE Drug Contraindication: N/A - Med Ordered
[2025-05-09 09:17] LABS: Glucose, Whole Blood 315 mg/dL (60-115)
[2025-05-09] MEDS: 0.9 % Sodium Chloride Flush 3 ML SYRINGE IVFLUSH (09:19)
--- NOTE | 2025-05-09 09:32 | P.DS_ITS ---
DS: Providers Provider Date of Service: 05/09/25 Date of admission: 05/04/25 05:24 Date of discharge: 05/09/25 Primary care physician: Hanh Mcdonough NP Consults: 05/04/25 08:39 Consult to Gastroenterology Routine Consulting Provider: [facility] Gastroenterology Services Reason for consultation: reccurrent pancreatitis unclear etiology Has provider been notified: No 05/04/25 15:44 Consult to General Surgery Routine Consulting Provider: [facility] General Surgeons Reason for consultation: possible biliary pancreatitis 05/07/25 08:39 Consult to Urology Routine Consulting Provider: [facility] Urology Services Reason for consultation: Hematuria DS: Diagnosis Discharge Diagnosis (1) Elevated lipase: Status: Acute DS: Summary Hospital Course Hospital Course: from initial hpi: 50 years old woman with past medical history significant for asthma, asthma and type 2 diabetes mellitus on insulin presents to the emergency department complaining of epigastric pain that started 5 days ago but it got worse tonight. She described the pain as as a burning sensation radiating to the right upper quadrant and back. It is associated with nausea but denied events of vomiting. She did not report any headache, palpitations, dizziness, fever or chills. She did not report any acute urinary symptoms. She denied alcohol abuse. She smoked 3 cigarettes daily and denied illicit drug use. She does take multiple medications for anxiety including doxepin, clonidine and clonazepam. Abdominal surgery history is remarkable for hysterectomy (had fibromas, endometriosis and cervical cancer). Patient was recently admitted [facility] but decided to leave [place]. She said that she has not been taking diclofenac which was recently prescribed. In the ED, she was found to have stable vital signs. Last blood pressure is 99/53. CBC is normal. There are no electrolyte imbalances. BUN is 27 and creatinine 1.24. Glucose is 164. LFTs are elevated except total bilirubin, 0.4. Triglycerides are 153. Lipase is 390. Abdominal pelvis CT scan with IV contrast showed distal esophageal wall changes, possible esophagitis and indeterminate adrenal masses, unchanged. ED Tx: 1 L bolus, ketorolac 15 mg IV, Zofran 4 mg IV, morphine 4 mg total hospital course: Patient was admitted for abdominal pain secondary to acute pancreatitis versus acute esophagitis. Gregory was unclear could be multifactorial with alcoholic gastritis/esophagitis, possible biliary, was seen by GI and General surgery. Diet was slowly advanced. No obvious etiology was found but is now tolerating p.o. and will be discharged home. For urinary tract infection due to E coli which was ceftriaxone will be discharged on Ceftin. For diabetes was continue insulin sliding scale. For mood disorder was continued on home meds. For history of seizure was continued on Lamictal. For COPD/mild intermittent asthma was continued on albuterol as needed. The patient is feeling better and will be discharged home. Time Attestation Discharge Coordination Time (in mins): 34 Quality: Safe Use of Opioids Does Pt have an Active Cancer Diagnosis on the Problem List?: No Quality: Stroke Does the patient have a stroke diagnosis?: No Physical Exam Exam: Exam: General: AO X 3, no acute distress Resp: CTA bilateral, no accessory muscles used CVS: S1,S2,RRR GI: soft, non tender, non distended Neuro: motor grossly intact, alert Psych: appropriate affect, appropriate insight Vital Signs: Vital Signs: Last Vital Signs Temp 97.3 F 05/09/25 07:42 Pulse 87 05/09/25 07:42 Resp 16 05/09/25 07:42 BP 122/67 05/09/25 07:42 Pulse Ox 97 05/09/25 07:42 O2 Del Method Room Air 05/09/25 07:42 O2 Flow Rate 2 05/06/25 15:20 BMI result Body Mass Index 26.6 DS: Data Data Completed and Pending Labs on day of discharge: Laboratory Results - last 24 hr 05/08/25 05/08/25 05/08/25 11:50 16:43 20:06 Hold Purple Top Sodium Potassium Chloride Carbon Dioxide Anion Gap BUN Creatinine Estim Creat Clear Calc Estimated GFR POC Glucose 138 H 251 H 296 H Random Glucose Calcium Total Bilirubin AST ALT Alkaline Phosphatase Total Protein Albumin 05/09/25 05/09/25 05/09/25 05:01 07:38 09:13 Hold Purple Top SEE NOTE Sodium 141 Potassium 3.5 Chloride 108 Carbon Dioxide 25 Anion Gap 12 BUN 6 L Creatinine 0.67 Estim Creat Clear Calc 101.3 Estimated GFR > 60 POC Glucose 226 H 315 H Random Glucose 274 H Calcium 8.1 L D Total Bilirubin 0.2 AST 18 ALT 27 Alkaline Phosphatase 105 Total Protein 6.3 L Albumin 3.4 L Discharge Plan Discharge Anticipated Discharge Date/Time: 05/09/25 09:23 Patient Disposition: Home, Self-Care Discharge Diagnosis: acute esophogitis Referrals: Hanh Mcdonough NP [Primary Care Provider, Family Practice] - 1 Week Damon Vásquez MD [Physician, General Surgery] - 2 Weeks Discharge Medications: New tamsulosin 0.4 mg Capsule 0.4 mg PO DAILY 90 Days Qty: 90 0RF cefuroxime axetil 500 mg tablet 500 mg PO BID Qty: 10 0RF Continued albuterol sulfate [Ventolin HFA] 90 mcg/actuation HFA aerosol inhaler 2 puff INHALATION Q6H PRN (Reason: Shortness Of Breath Or Wheezing) Glucagon Emergency Kit (human) 1 mg recon soln 1 mg IM Q20M PRN (Reason: Hypoglycemia) insulin lispro 100 unit/mL insulin pen See Protocol SUBCUT TIDWM Protocol: Insulin Correction Scale Less than or equal to 110 ---- Give (units): 0 111 to 150 Give (units): 0 151 to 200 Give (units): 2 201 to 250 Give (units): 4 251 to 300 Give (units): 6 301 to 350 Give (units): 8 Greater than 350 Give (units): 10 Call MD if Blood Glucose > : 350 insulin glargine [Lantus Solostar U-100 Insulin] 100 unit/mL (3 mL) insulin pen 85 unit subcut BEDTIME lamotrigine 25 mg tablet 50 mg PO BEDTIME fluticasone propionate 50 mcg/actuation spray,suspension 1 spray intranasal BID PRN (Reason: allergies) clonazepam 0.5 mg tablet 0.5 mg PO BID PRN (Reason: Anxiety) tramadol 50 mg tablet 50 mg PO Q12H PRN (Reason: pain) doxepin 100 mg capsule 100 mg PO BEDTIME pantoprazole 40 mg tablet,delayed release (DR/EC) 40 mg PO BID@0630,1630 montelukast 10 mg tablet 10 mg PO DAILY pregabalin 150 mg capsule 150 mg PO DAILY pregabalin 150 mg capsule 300 mg PO BEDTIME [id number]-[id number] 50-325-40 mg tablet 1 tab PO Q6H PRN (Reason: haeadace) Qty: 20 0RF Discontinued clonidine HCl 0.3 mg tablet 0.3 mg PO BEDTIME Discharge Orders: Discharge Order (Routine); Ordered 05/09/25 Ordered By: Kevin Kiran Diet: Advance to usual diet Activity on Discharge: As tolerated Stand Alone Forms: Patient Portal Discharge page Print Language: Bulgarian Care Plan Goals: recovery Health Concerns: abd pain Plan of Treatment: continue ppi Assessment: see above
--- NOTE | 2025-05-09 09:33 | MHC.CM.PN ---
pt dcd home self care
[2025-05-09 10:26] VITALS: BP 129/67; PULSE 94; RESP 16; TEMP 36; O2SAT 94
== END 2025-05-09 10:35 | disposition home or self-care (01) | DRG 282 ==
LOC: HO.ED 05-04 05:24 → HO.EDOVER 05-04 05:30 → HO.S3 05-04 12:33 → HO.IMC 05-05 04:40 → HO.S3 05-07 19:25
PROVIDERS: Internal Medicine; Surgery; Urology; Admitting Provider Internal Medicine; Emergency Provider Emergency Medicine; PCP Family Medicine; Visit Provider Internal Medicine
DX: K85.10 Biliary acute pancreatitis without necrosis or infection (principal); G92.8 Other toxic encephalopathy; N30.01 Acute cystitis with hematuria; K76.0 Fatty (change of) liver, not elsewhere classified; F32.A Depression, unspecified; M79.7 Fibromyalgia; F41.9 Anxiety disorder, unspecified; K20.90 Esophagitis, unspecified without bleeding; B96.20 Unspecified Escherichia coli [E. coli] as the cause of diseases classified elsewhere; F43.10 Post-traumatic stress disorder, unspecified; J44.9 Chronic obstructive pulmonary disease, unspecified; J45.20 Mild intermittent asthma, uncomplicated; T40.2X5A Adverse effect of other opioids, initial encounter; Z79.4 Long term (current) use of insulin; Z79.899 Other long term (current) drug therapy
CPT/HCPCS: 36415; 70450; 74018; 74177; 76705; 76770; 80053; 80061; 80307; 81001; 82140; 82803; 82947; 82977; 83036; 83605; 83690; 83735; 85025; 85027; 86140; 86704; 86706; 86709; 86803; 87086; 87088; 87186; 87340; 99285; J0696; J1171; J1650; J1885; J2270; J2312; J2405; J2470; J3360; J7120; Q9967

== ENCOUNTER → 2025-05-04 01:09 | Outpatient (BNV) | payer OTHER, SELFPAY | PROVIDERS: Admitting Provider Internal Medicine; Emergency Provider Emergency Medicine; PCP Family Medicine; Visit Provider Specialist | DX: K85.90 Acute pancreatitis without necrosis or infection, unspecified (principal); R10.13 Epigastric pain; R10.11 Right upper quadrant pain | CPT/HCPCS: 74177; 76705 ==

== ENCOUNTER 2025-05-04 05:24 | Outpatient (BNV) | payer OTHER, SELFPAY | END 2025-05-05 04:39 | PROVIDERS: Admitting Provider Internal Medicine; Emergency Provider Emergency Medicine; PCP Family Medicine; Visit Provider Specialist | DX: R41.82 Altered mental status, unspecified (principal); R14.0 Abdominal distension (gaseous) | CPT/HCPCS: 70450; 74018 ==

== ENCOUNTER 2025-05-04 05:24 | Outpatient (BNV) | payer OTHER, SELFPAY | END 2025-05-07 14:23 | PROVIDERS: Admitting Provider Internal Medicine; Emergency Provider Emergency Medicine; PCP Family Medicine; Visit Provider Radiology Diagnostic Radiology | DX: E27.9 Disorder of adrenal gland, unspecified (principal); R31.9 Hematuria, unspecified | CPT/HCPCS: 74177; 76770 ==

== ENCOUNTER → 2025-05-04 05:24 | Outpatient (BNV) | payer OTHER, SELFPAY | PROVIDERS: Admitting Provider Internal Medicine; Emergency Provider Emergency Medicine; PCP Family Medicine; Visit Provider Urology | DX: N30.01 Acute cystitis with hematuria (principal) | CPT/HCPCS: 99222 ==

== ENCOUNTER → 2025-05-04 05:24 | Outpatient (BNV) | payer OTHER, SELFPAY | PROVIDERS: Admitting Provider Internal Medicine; Emergency Provider Emergency Medicine; PCP Family Medicine; Visit Provider Surgery | DX: K85.90 Acute pancreatitis without necrosis or infection, unspecified (principal) | CPT/HCPCS: 99223 ==

== ENCOUNTER → 2025-05-04 05:24 | Outpatient (BNV) | payer OTHER, SELFPAY | PROVIDERS: Admitting Provider Internal Medicine; Emergency Provider Emergency Medicine; PCP Family Medicine; Visit Provider Internal Medicine | DX: K85.00 Idiopathic acute pancreatitis without necrosis or infection (principal) | CPT/HCPCS: 99223; 99231; 99232; 99239; 99499 ==

== ENCOUNTER → 2025-05-04 05:24 | Outpatient (BNV) | payer OTHER, SELFPAY | PROVIDERS: Admitting Provider Internal Medicine; Emergency Provider Emergency Medicine; PCP Family Medicine; Visit Provider Internal Medicine | DX: R74.8 Abnormal levels of other serum enzymes (principal); R10.10 Upper abdominal pain, unspecified; N30.01 Acute cystitis with hematuria | CPT/HCPCS: 99222; 99232 ==

== ENCOUNTER 2025-05-16 00:36 | Emergency (ER) | payer OTHER, SELFPAY ==
--- OUTSIDE RECORDS SUMMARY | 2015-11-21 05:57 | XMS_ITS | Continuity of Care Document ---
Author Organization [facility] Address [address] [place] [address] Phone Care Team Providers Care Maintenance Mechanic Technician Name Role Phone Juan Peña DO Unavailable [...] Diagnoses Date Provider Providers Copied on Encounter [facility], [address] [place], [place], [id number], [place] tel:[phone] [facility] No Information 6 Mariana Martinez. [address] [facility], [place], [id number] , [place]. tel: [phone] OFFICE/OUTPA TIENT VISIT, EST [facility], [address] [place], [place], [id number], [place] tel:[phone] [facility] Anxiety disorder, unspecifiedHypertens ionNicotine dependence, unspecified, uncomplicatedType 2 diabetes mellitus with hyperglycemia Mar-0 9-201 6 Mariana Martinez. [address] [place] [address], [place], [id number] , [place]. tel: [phone] OFFICE/OUTPA TIENT VISIT, [facility], [address] [place], [place], [id number], [place] tel:[phone] [facility] Abnormal levels of other serum enzymesAnxiety disorder, unspecifiedNicotine dependence, unspecified, uncomplicatedType 2 diabetes mellitus with hyperglycemiaHyperte nsion Nov-0 5-201 5 Mariana Martinez. [address] [place] [address], [place], [place], [id number] , [place]. tel: [phone] OFFICE/OUTPA TIENT VISIT, [facility], [address] [place], [place], [id number], [place] tel:[phone] [facility] Nicotine dependence, unspecified, uncomplicatedType 2 diabetes mellitus with hyperglycemiaOverwei ght Oct-0 8-201 5 Higgins Jennifer. [address] [place] [address], [place], [address], [place]. tel: [phone] [facility], [address] [place], [place], [id number], [place] tel:[phone] [facility] Abnormal liver enzymes Apr-2 0-201 5 Mariana Martinez. [address] [place] [address], [place], [place], [id number] , [place]. tel: [phone] OFFICE/OUTPA TIENT VISIT, [facility], [address] [place], [place], [id number], [place] tel:[phone] [facility] Anxiety state, unspecifiedCurrent smokerDiabetes mellitus without mention of complication, type II or unspecified type, uncontrolledInsomnia General medical examPTSD - Post-traumatic stress disorder Apr-1 6-201 5 Mariana Martinez. [address] [place] [address], [place], [place], [id number] , [place]. tel: [phone] OFFICE/OUTPA TIENT VISIT, [facility], [address] [place], [place], [id number], [place] tel:[phone] [facility] General medical examDiabetes mellitus without mention of complication, type II or unspecified type, uncontrolledPTSD - Post-traumatic stress disorderAnxiety state, unspecifiedEmphysema Current smokerInsomnia Mar-0 4-201 5 Mariana Martinez. [address] , [place], , [id number] , [place]. tel: [phone] Family History Family Member Type Diagnosis Age At Onset Father Problem (finding) Alive and well Mother Problem (finding) Alive and well Mother Problem (finding) diabetes melli tus in first degree relative Payers Payer name Insurance type Covered democrat ID Keshav suarezgill(ricciLeonel Lees [place] CAN CI [id number] Social History Type Description Quantity Date Captured Comments Alcohol Use Details Unknown Caffeine Use Details Unknown Tobacco Use Status Smoking Status No Information Sex Female Sexual Orientation Straight or heterosexual Gender Identity Mmqewx-cg-Zzls (FTM) /Transgender Male/Trans Man Chief Complaint And [...]
[2025-05-16 00:59] VITALS: BP 152/85; PULSE 102; RESP 16; TEMP 37.1; O2SAT 99; BMI 26.2
[2025-05-16 01:23] LABS: MANUAL DIFF FLAG NO
[2025-05-16 01:24] LABS: Hematocrit 40.9 % (37.0-47.0); Hemoglobin 14.2 g/dl (12.0-16.0); Imm Gran Abs Auto 0.05 X10*3/uL (0.00-0.03); Imm Gran Pct Auto 0.5 % (0.0-0.4); Lymphocytes Absolute Auto 2.7 X10*3/uL (1.2-4.9); Mean Corpuscular HGB Conc 34.7 g/dl (31.0-35.0); Mean Corpuscular Hemoglobin 28.9 pg (27.0-33.0); Mean Corpuscular Volume 83.3 fL (80.0-98.0); NRBC Abs Auto 0.000 X10*3/uL (0.0-0.012); NRBC Pct Auto 0.0 /100WBC (0.0-0.2); Platelet Count 345 X10*3/uL (160-400); Red Blood Count 4.91 X10*6/uL (4.20-5.50); White Blood Count 10.3 X10*3/uL (4.8-10.8)
[2025-05-16 01:46] LABS: Alanine Aminotransferase 56 U/L (0-31); Albumin Level 4.6 g/dL (3.5-5.0); Alkaline Phosphatase 132 U/L (39-117); Anion Gap 14 (12-20); Aspartate Amino Transferase 30 U/L (5-31); Blood Urea Nitrogen 10 mg/dL (9-16); Calcium 11.4 mg/dL (8.4-10.2); Carbon Dioxide 34 mmol/L (22-29); Chloride 95 mmol/L (96-108); Creatinine Clr Calc Pharmacy 87.6; Estimated Glomerular Filt Rate > 60; Lipase 143 U/L (8-78); Magnesium 1.9 mg/dL (1.6-2.6); Potassium 4.1 mmol/L (3.3-5.1); Sodium 139 mmol/L (135-145); Total Protein 8.6 g/dL (6.5-8.0)
--- NOTE | 2025-05-16 01:55 | PC.NURSE ---
0147 MD Siri Calderon and rn hemodialysis charge Jannette made aware of critical glucose level of 379.
[2025-05-16 02:59] VITALS: BP 138/88; PULSE 92; RESP 16; TEMP 36.9; O2SAT 100
[2025-05-16 03:04] LABS: Glucose, Whole Blood 316 mg/dL (60-115)
[2025-05-16 03:13] LABS: Appearance Urine Clear; Glucose Urine UA >=1000 mg/dL (Negative); PH 8.0 (5.0-9.0); Specific Gravity - Urine >= 1.030 (1.005-1.025); UMIC TRIGGER UACC YES
--- OUTSIDE RECORDS SUMMARY | 2025-05-16 03:41 | XMS_ITS | Clinical Summary ---
Author Organization [facility] ity Address [address] [place] [address] Care Team Providers Care Production Checker Name Role Phone Unavailable Primary Care Provider [...]
--- NOTE | 2025-05-16 06:03 | HO.NURTONUR ---
Pt seen by registration eloping from ED. Charge nurse notified
[2025-05-16 06:04] VITALS: BP 138/88; PULSE 92; RESP 16; TEMP 36.9; O2SAT 100
== END 2025-05-16 06:05 | disposition left against medical advice (07) ==
PROVIDERS: Emergency Provider Emergency Medicine
DX: R10.22 Pelvic and perineal pain left side (principal); Z51.81 Encounter for therapeutic drug level monitoring; Z79.899 Other long term (current) drug therapy
CPT/HCPCS: 36415; 80053; 80307; 81001; 82947; 83690; 83735; 85025; 99281; 99284

== ENCOUNTER 2025-05-21 14:44 | Emergency (ER) | payer OTHER, SELFPAY ==
[2025-05-21 15:00] VITALS: BP 111/59; PULSE 91; RESP 18; TEMP 36.7; O2SAT 98; BMI 26.6
--- NOTE | 2025-05-21 15:00 | ED.GENADULT ---
HPI - General Adult General Chief complaint: Abdominal Pain Stated complaint: R sided stomach pain Related Data Home Medications ?Medication ?Instructions ?Recorded ?Confirmed clonazepam 0.5 mg tablet 0.5 mg PO BID PRN Anxiety 09/29/24 05/04/25 doxepin 100 mg capsule 100 mg PO BEDTIME 09/29/24 05/04/25 montelukast 10 mg tablet 10 mg PO DAILY asthma 09/29/24 05/04/25 pantoprazole 40 mg tablet,delayed 40 mg PO BID@0630,1630 09/29/24 05/04/25 release pregabalin 150 mg capsule 150 mg PO DAILY 09/29/24 05/04/25 pregabalin 150 mg capsule 300 mg PO BEDTIME 09/29/24 05/04/25 tramadol 50 mg tablet 50 mg PO Q12H PRN pain 09/29/24 05/04/25 albuterol sulfate 90 mcg/actuation 2 puff inhalation Q6H PRN 12/10/24 05/04/25 aerosol inhaler (Ventolin HFA) Shortness Of Breath Or Wheezing fluticasone propionate 50 1 spray intranasal BID PRN 05/04/25 05/04/25 mcg/actuation nasal allergies spray,suspension glucagon 1 mg solution for 1 mg IM Q20M PRN Hypoglycemia 05/04/25 05/04/25 injection (Glucagon Emergency Kit) insulin glargine 100 unit/mL (3 85 unit subcut BEDTIME 05/04/25 05/04/25 mL) subcutaneous pen (Lantus Solostar U-100 Insulin) insulin lispro 100 unit/mL See Protocol subcut TIDWM 05/04/25 05/04/25 subcutaneous pen lamotrigine 25 mg tablet 50 mg PO BEDTIME 05/04/25 05/04/25 Previous Rx's ?Medication ?Instructions ?Recorded qulzldmbqa-vqvzyugwkpjln-nyxknmiu 1 tab PO Q6H PRN haeadace #20 tabs 02/20/25 50 mg-325 mg-40 mg tablet cefuroxime axetil 500 mg tablet 500 mg PO BID #10 tabs 05/09/25 tamsulosin 0.4 mg capsule 0.4 mg PO DAILY 90 days #90 caps 05/09/25 Allergies Allergy/AdvReac Type Severity Reaction Status Date / Time ciprofloxacin (From CIPRO) Allergy Intermediate RASH Verified 05/21/25 15:02 Sulfa (Sulfonamide Allergy Intermediate RASH Verified 05/21/25 15:02 Antibiotics) (SULFA (SULFONAMIDE ANTIBIOTICS)) sulfamethoxazole (From Allergy Unknown SWELLING Verified 05/21/25 15:02 SEPTRA) trimethoprim (From SEPTRA) Allergy Unknown SWELLING Verified 05/21/25 15:02 SEAFOOD Allergy Severe ANAPHYLAXIS Uncoded 05/21/25 15:02 [facility] Past Medical History Medical History (Updated 05/28/25 @ 16:07 by Dallin Goodwin) History of seizures Type 2 diabetes mellitus Asthma Hepatitis A Social History Social History Household Members: Family Housing: Apartment Do you presently have visiting nurse or other home services: No (working on getting a 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 travel reservations) Alcohol intake: former Patient Tobacco Use Status: Tobacco use Unknown Tobacco use type: Cigarette Cigarettes Per Day: 3 Years Smoked: 20 e-Cigarette/Vaping Use: Currently Using Second Hand Smoke Exposure: No Advance Directives: No Advance Directives Information Provided: No Do you have a plan to hurt others: No Plan service: No Physical Exam ED Vital Signs: BMI result Body Mass Index 26.6 Course Course Course Narrative: RME, this is a rapid medical exam performed by Ricky Goodwin please refer to primary provider for complete H&P- 50-year-old female presents for evaluation abdominal pain. She was recently admitted for pancreatitis and reports this feels similar. Plan for labs, urinalysis. We will defer any potential advanced imaging to primary ER provider Discharge Plan Discharge Clinical Impression: Abdominal pain Patient Disposition: Left W/O Completing Treatment Prescriptions: No Action albuterol sulfate [Ventolin HFA] 90 mcg/actuation HFA aerosol inhaler 2 puff INHALATION Q6H PRN (Reason: Shortness Of Breath Or Wheezing) Glucagon Emergency Kit (human) 1 mg recon soln 1 mg IM Q20M PRN (Reason: Hypoglycemia) insulin lispro 100 unit/mL insulin pen See Protocol SUBCUT TIDWM Protocol: Insulin Correction Scale Less than or equal to 110 ---- Give (units): 0 111 to 150 Give (units): 0 151 to 200 Give (units): 2 201 to 250 Give (units): 4 251 to 300 Give (units): 6 301 to 350 Give (units): 8 Greater than 350 Give (units): 10 Call MD if Blood Glucose > : 350 insulin glargine [Lantus Solostar U-100 Insulin] 100 unit/mL (3 mL) insulin pen 85 unit subcut BEDTIME lamotrigine 25 mg tablet 50 mg PO BEDTIME fluticasone propionate 50 mcg/actuation spray,suspension 1 spray intranasal BID PRN (Reason: allergies) tamsulosin 0.4 mg Capsule 0.4 mg PO DAILY 90 Days Qty: 90 0RF cefuroxime axetil 500 mg tablet 500 mg PO BID Qty: 10 0RF clonazepam 0.5 mg tablet 0.5 mg PO BID PRN (Reason: Anxiety) tramadol 50 mg tablet 50 mg PO Q12H PRN (Reason: pain) doxepin 100 mg capsule 100 mg PO BEDTIME pantoprazole 40 mg tablet,delayed release (DR/EC) 40 mg PO BID@0630,1630 montelukast 10 mg tablet 10 mg PO DAILY pregabalin 150 mg capsule 150 mg PO DAILY pregabalin 150 mg capsule 300 mg PO BEDTIME mkbsgmyleq-ukueksqentfiw-ycib 50-325-40 mg tablet 1 tab PO Q6H PRN (Reason: haeadace) Qty: 20 0RF Discharge Date/Time: 05/21/25 17:52
== END 2025-05-21 17:52 | disposition left against medical advice (07) ==
PROVIDERS: Emergency Provider Emergency Medicine
DX: R10.A1 Flank pain, right side (principal); Z53.29 Procedure and treatment not carried out because of patient's decision for other reasons
CPT/HCPCS: 99281

== ENCOUNTER 2025-06-11 15:50 | Outpatient (AMB) | payer OTHER, SELFPAY ==
--- OUTSIDE RECORDS SUMMARY | 2015-11-21 04:57 | XMS_ITS | Continuity of Care Document ---
Author Organization [facility] Address [address] [place] [address] Phone Care Team Providers Care Enrollment Eligibility Representative Name Role Phone Juan Peña DO Unavailable Unavailable Allergies, Adverse Reactions, Alerts Substance Reaction Status Criticality iodine Active No Information Sulfa (Sulfonamide Antibiotics) Active No Information Procedures Procedure Date DRUG SCREEN, ANY FROM LIST A, ANY NON TL C DEVICE OFFICE/OUTPATIENT VISIT, EST ASSAY, GLUCOSE, BLOOD QUANT ROUTINE VENIPUNCTURE OFFICE/OUTPATIENT VISIT, EST MICRO ALBUMIN CREATININE UA OFFICE/OUTPATIENT VISIT, EST ROUTINE VENIPUNCTURE HIV-1 ROUTINE VENIPUNCTURE OFFICE/OUTPATIENT VISIT, EST OFFICE/OUTPATIENT VISIT, NEW ROUTINE VENIPUNCTURE DRUG SCREEN SINGLE HIV-1 Advance Directives Directive Yes / No Effective Date File Name No Information Encounters Encounter Description Practice Location Reason(s) For Visit Diagnoses Date Provider Providers Copied on Encounter [facility], [address], [place], [id number], [place] tel:[phone] [facility] No Information 6 Mariana Martinez. [address] [facility], [place], [id number] , [place]. tel: [phone] OFFICE/OUTPA TIENT VISIT, EST [facility], [address] [place], [place], [id number], [place] tel:[phone] [facility] Anxiety disorder, unspecifiedHypertens ionNicotine dependence, unspecified, uncomplicatedType 2 diabetes mellitus with hyperglycemia Mar-0 9-201 6 Mariana Martinez. [address] [place] [address], [place], [id number] , [place]. tel: [phone] OFFICE/OUTPA TIENT VISIT, [facility], [address] [place], [place], [id number], [place] tel:[phone] [facility] Abnormal levels of other serum enzymesAnxiety disorder, unspecifiedNicotine dependence, unspecified, uncomplicatedType 2 diabetes mellitus with hyperglycemiaHyperte nsion Nov-0 5-201 5 Mariana Martinez. [address] [place] [address], [place], [place], [id number] , [place]. tel: [phone] OFFICE/OUTPA TIENT VISIT, [facility], [address] [place], [place], [id number], [place] tel:[phone] [facility] Nicotine dependence, unspecified, uncomplicatedType 2 diabetes mellitus with hyperglycemiaOverwei ght Oct-0 8-201 5 Higgins Jennifer. [address] [place] [address], [place], [address], [place]. tel: [phone] [facility], [address] [place], [place], [id number], [place] tel:[phone] [facility] Abnormal liver enzymes Apr-2 0-201 5 Mariana Martinez. [address] [place] [address], [place], [place], [id number] , [place]. tel: [phone] OFFICE/OUTPA TIENT VISIT, [facility], [address] [place], [place], [id number], [place] tel:[phone] [facility] Anxiety state, unspecifiedCurrent smokerDiabetes mellitus without mention of complication, type II or unspecified type, uncontrolledInsomnia General medical examPTSD - Post-traumatic stress disorder Apr-1 6-201 5 Mariana Martinez. [address] [place] [address], [place], [place], [id number] , [place]. tel: [phone] OFFICE/OUTPA TIENT VISIT, [facility], [address] [place], [place], [id number], [place] tel:[phone] [facility] General medical examDiabetes mellitus without mention of complication, type II or unspecified type, uncontrolledPTSD - Post-traumatic stress disorderAnxiety state, unspecifiedEmphysema Current smokerInsomnia Mar-0 4-201 5 Mariana Martinez. [address] , [place], , [id number] , [place]. tel: [phone] Family History Family Member Type Diagnosis Age At Onset Father Problem (finding) Alive and well Mother Problem (finding) Alive and well Mother Problem (finding) diabetes melli tus in first degree relative Payers Payer name Insurance type Covered constitution party ID Keshav suarezgill(ricciLeonel Lees [place] [id number] Social History Type Description Quantity Date Captured Comments Alcohol Use Details Unknown Caffeine Use Details Unknown Tobacco Use Status Smoking Status No Information Sex Female Sexual Orientation Straight or heterosexual Gender Identity Ournyb-rq-Rokl (FTM) /Transgender Male/Trans Man Chief Complaint And Reason For Visit No Information Reason For Referral Reason For Referral No Information History Of Present Illness Encounter Date Complaint History Of Prese nt Illness No Information Functional Status Date Functional Assessmen t No Information Instructions Date Instruction Additional Infor mation No Information Assessments Type Assessment Date No Information Patient Care Teams Name Effective Dates (start - stop) Status Members No Information
--- OUTSIDE RECORDS SUMMARY | 2025-06-06 16:32 | XMS_ITS | Encounter Summary ---
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 RECENTLY TREATED FOR PANCREATITIS. ALSO STATES SHE IS A TYPE ONE DIABETIC, LAST BLOOD SUGAR ON METER READ HI. Encounter Details Date Type Department Care Team ([facility] st Contact Info) Description 06/06/2025 4:32 PM EST - 06/06/2025 9:33 PM EST Emergency [facility] Emergency [address] [place] [address] Rafael Caban MD [address] [place] [address] Alvino Vale MD [address] [place] [address] Epigastric pain (Primary Dx); Hyperglycemia Discharge Disposition: Home or Self Care Social History Tobacco Use Types Packs/Day Years Used Date Smoking Tobacco: Every Day Cigarettes Smokeless Tobacco: Never Housing Instability Answer Date Recorde d Are you worried that in the next 2 months you may not have stable housing? No 05/22/2025 Food Access & Nutrition Answer Date Rec orded Do you have access to a vari ety of food including fruits and vegetables? Yes 05/22/2025 Access to Healthcare Answer Date Record ed Within the last 3 months, jennifer manjarrez many times did you visit the emergency department for your medical care? 1 05/22/2025 Health Literacy Answer Date Recorded How often do you need to hav e someone help you when you read instructions, pamphlets, or other written material from your doctor or pharmacy? Never 05/22/2025 Caregiver: How often do you need to have someone help you when you read instructions, pamphlets, or other written material from your doctor or pharmacy? Not on file 05/22/2025 Financial Risk Answer Date Recorded How hard is it for you to pa y for the very basics like food, housing, medical care, and air conditioning / heating? Somewhat hard 05/22/2025 Transportation Answer Date Recorded Has the lack of transportati on kept you from meetings, work, or from getting things needed for daily living? No Has the lack of transportati on kept you from medical appointments or from getting medications? No 05/22/2025 Social Isolation Answer Date Recorded How often do you feel lonely or isolated from those around you? Sometimes 05/22/2025 Food Risk Answer Date Recorded Within the past 12 months we worried whether our food would run out before we got money to buy more. Never true 05/22/2025 Within the past 12 months th e food we bought just didn't last and we didn't have money to get more. Never true 05/22/2025 Dependent Care Answer Date Recorded Do you need help finding or paying for care for your loved ones. For example, childrens club attendant or elderly care for an older adult? No 05/22/2025 Education Answer Date Recorded Do you think completing more education or training, like finishing a GED, going to college, or learning a trade, would be helpful for you? No 05/22/2025 Employment and Income Answer Date Recor ded During the last four weeks, have you been actively looking for work? No 05/22/2025 Living Situation Answer Date Recorded What is your living situation? Unrecognized valu e 05/22/2025 Interpersonal Safety Answer Date Record ed Physical Abuse Unrecognized value 05/22/2025 Verbal Abuse Unrecognized value 05/22/2025 Comments No Sex and Gender Information Value Date Recorded Sex Assigned at Not on file Legal Sex Female 4:57 PM EST Gender Identity Not on file Sexual Orientation Not on file documented as of this encounter Last Filed Vital Signs Vital Sign Reading Time Taken Comments Blood Pressure 154/80 06/06/2025 8:05 PM EST Pulse 93 06/06/2025 8:05 PM EST Temperature 36.6 C (97.8 F) 06/06/2025 8:05 PM EST Respiratory Rate 18 06/06/2025 8:05 PM EST Oxygen Saturation 99% 06/06/2025 8:05 PM EST Inhaled Oxygen Concentration - - Weight 72.6 kg (160 lb) 06/06/2025 2:58 PM EST Height 165.1 cm (5' 5 ) 06/06/2025 2:58 PM EST Body Mass Index 26.63 06/06/2025 2:58 PM EST documented in this encounter Functional Status * Are you deaf or do you have serious difficulty hearing? Answer Date of Assessment Author No 06/06/2025 9:25 PM EST Regina Ricardo RN * Are you blind or do you have serious difficulty seeing, even when wearing glasses? Answer Date of Assessment Author No 06/06/2025 9:25 PM EST Regina Ricardo RN * Do you have serious difficulty walking or climbing stairs? Answer Date of Assessment Author No 06/06/2025 9:25 PM EST Regina Ricardo RN * Do you have serious difficulty dressing or bathing? Answer Date of Assessment Author No 06/06/2025 9:25 PM EST Regina Ricardo RN * Because of a physical, mental, or emotional condition, do you have serious difficulty doing errandsalone such as visiting the doctor? Answer Date of Assessment Author No 06/06/2025 9:25 PM Regina Allen RN * Calculated C-SSRS Risk Score (Lifetime/Recent) Answer Date of Assessment Author No Risk Indicated 06/06/2025 2:44 PM Lori Rodriguez RN * [place] Suicide Severity Rating Scale (Screener/Recent Self-Report) Question Answer Date of Assessment Author 1. Wish to be (Past 1 Month) No 2:44 PM Lori Rodriguez RN 2. Non-Specific Active Suici hilario Thoughts (Past 1 Month) No 06/06/2025 2:44 PM Lori Rodriguez RN 6. Suicidal Behavior (Lifetime) No 2:44 PM Lori Rodriguez RN documented as of this encounter Mental Status * Because of a physical, mental, or emotional condition, do you have serious difficulty concentrating, remembering, or making decisions? (5 years old or older) Answer Entry Date Author No 06/06/2025 9:25 PM EST Regina Ricardo RN documented in this encounter Discharge Instructions * Discharge Instructions* Alvino Vale MD - 06/06/2025 9:03 PM EST Take the prescribed medications as needed for pain. Follow-up with your primary care doctor as needed. * Attachments The following attachments cannot be sent through Care Everywhere. * Abdominal Pain (Honduran) documented in this encounter Medications at Time of Discharge amitriptyline (ELAVIL) 25 mg tablet Take 2 tablets (50 mg total) by mouth at bedtime as needed (insomnia). aspirin 81 mg EC tablet Take 1 tablet (81 mg total) by mouth 1 (one) time each day. clonazePAM (KlonoPIN) 0.5 mg tablet Take 1 tablet (0.5 mg total) by mouth 2 (two) times a day if needed for anxiety. 04/25/2025 diclofenac (VOLTAREN) 75 mg EC tablet Take 1 tablet (75 mg total) by mouth 2 (two) times a day if needed (Foot pain). 04/26/2025 doxepin (SINEquan) 100 mg capsule Take 1 capsule (100 mg total) by mouth at bedtime. 05/08/2025 fluticasone propionate (FLONASE) 50 mcg/actuation nasal spray Administer 1 spray into each nostril 1 (one) time each day. 04/08/2025 insulin lispro (HumaLOG KwikPen) 100 unit/mL injection pen Inject 8-18 Units under the skin 3 (three) times a day before meals. 05/09/2025 lamoTRIgine (LaMICtal) 100 mg tablet Take 1 tablet (100 mg total) by mouth at bedtime. 05/08/2025 lamoTRIgine (LaMICtal) 25 mg tablet Take 2 tablets (50 mg total) by mouth at bedtime. Lantus Solostar U-100 Insulin 100 unit/mL (3 mL) injection pen Inject 80 Units under the skin at bedtime. montelukast (SINGULAIR) 10 mg tablet Take 1 tablet (10 mg total) by mouth at bedtime. 05/12/2025 pantoprazole (PROTONIX) 40 mg EC tablet Take 1 tablet (40 mg total) by mouth 2 (two) times a day before meals. 02/21/2025 pregabalin (LYRICA) 150 mg capsule Take 1 capsule (150 mg total) by mouth. FOREST 1 CAPSULE BY MOUTH IN THE MORNING AND 2 CAPSULES BY MOUTH AT BEDTIME 05/12/2025 tamsulosin (FLOMAX) 0.4 mg 24 hr capsule Take 1 capsule (0.4 mg total) by mouth 1 (one) time each day. Capsules should be taken 30 minutes following the same meal each day. HYDROcodone-acet aminophen (NORCO) 5-325 mg per tablet Take 1 tablet by mouth every 6 (six) hours if needed for severe pain for up to 3 days. Max Daily Amount: 4 tablets 12 tablet 06/06/2025 5 documented as of this encounter Ordered Prescriptions Prescription Sig Dispense Quantity Refills Last Filled Start Date End Date HYDROcodone-acetam inophen (NORCO) 5-325 mg per tablet Take 1 tablet by mouth every 6 (six) hours if needed for severe pain for up to 3 days. Max Daily Amount: 4 tablets 12 tablet 06/06/2025 5 documented in this encounter Discharge Disposition Disposition Code Departure Means Destination Comment s Home or Self Care documented in this encounter Progress Notes * Tanisha Sahni RN - 06/06/2025 2:54 PM EST Pt comes to ER with c/o RUQ abd pain that radiates across abd into back. Pt has hx of being hospitalized for pancreatitis and was discharged about 2 weeks ago. Pt states the pain feels similar. Pt also c/o hyperglycemia. POC 524. Pt a&ox4, ambulates with steady gait. * Rafael Caban MD - 06/06/2025 2:33 PM EST History: Marita Boo is a 50 y.o. female History of alcoholism, diabetes, presenting to the ED with Acute abdominal pain, hyperglycemia to 539, subjective fevers. Patient states that she is in remission from alcohol, has not had any alcohol for many years. Medical History[1] Surgical History[2] Current Medications[3] Allergies[4] Social History Socioeconomic History Marital status: Single Spouse name: None Number of children: None Years of education: None Highest education level: None Occupational History None Tobacco Use Smoking status: Every Day Types: Cigarettes Smokeless tobacco: Never Substance and Sexual Activity Alcohol use: Never Drug use: Never Sexual activity: None Other Topics Concern None Social History Narrative None Family History[5] Exam: Visit Vitals BP (!) 154/80 (BP Location: Left arm, Patient Position: Lying) Pulse 93 Temp 36.6 ??C (97.8 ??F) (Oral) Resp 18 Ht 1.651 m (65 ) Wt 72.6 kg (160 lb) SpO2 99% BMI 26.63 kg/m?? OB Status Hysterectomy Smoking Status Every Day BSA 1.8 m?? Appearance: NAD Eyes: eye lids/eyes grossly symmetric, no conjunctival injection, anicteric sclerae ENT: external ears clear and symmetric, mucosa moist Head/Neck: NCAT, neck supple Lungs: non-labored effort, CTAB, no stridor Cardiovascular: regular rate, regular rhythm, no murmurs, no gallops, no rubs, no JVD Abdomen: soft, no tenderness, no palpable mass, no guarding, no rebound Musculo-skeletal: no gross deformity Skin: warm, dry Neurological: AA, grossly oriented, pupils equal and round, EOMI, no facial asymmetry, no slurred speech, [place] Psych: appropriate MDM: Marita Boo is a 50 y.o. female history of alcoholism, diabetes, presenting to the ED with Acute abdominal pain, hyperglycemia to 539, subjective fevers. DDx considered: Hyperglycemia, DKA, HHS, pancreatitis, alcohol withdrawal, alcohol intoxication, acute intra-abdominal pathology, sepsis, infection External note(s) reviewed: Prior records Independent historian(s) assessed: History per patient Patient hyperglycemic 500s, patient given LR 1000 mL IV x 2, insulin 10 units subcutaneous No anion gap, no evidence for DKA. Alcohol level within normal limits. No evidence for acute alcohol withdrawal. Lipase is not 3 times upper limit of normal. Patient pending CT abdomen pelvis with IV contrast I ordered and reviewed: Labs Reviewed COMPREHENSIVE METABOLIC PANEL - Abnormal Result Value Sodium 131 (*) Potassium 4.3 Chloride 97 CO2 27 Anion Gap 7 Glucose 539 (*) BUN 17 Creatinine 1.04 eGFR 66 BUN/Creatinine Ratio 16.3 Calcium 9.2 AST (SGOT) 34 ALT (SGPT) 76 (*) Alkaline Phosphatase 129 (*) Total Protein 7.8 Albumin 3.7 Total Bilirubin 0.2 LIPASE - Abnormal Lipase 103 (*) OSMOLALITY - Abnormal Osmolality Gemma 315 (*) VENOUS BLOOD GAS - Abnormal pH, [place] 7.39 pCO2, [place] 50 pO2, [place] 17 (*) HCO3, Venous 26.1 (*) O2 Sat, [place] <30.0 Base Excess, [place] 4.2 (*) URINALYSIS WITH REFLEX MICROSCOPIC - Abnormal Specific [place] Urine 1.035 (*) pH, Urine 6.0 Leukocytes, Urine Negative Nitrite, Urine Negative Protein, Urine Negative Glucose, Urine >=1000 (*) Ketones, Urine Negative Urobilinogen, Urine 0.2 Bilirubin, Urine Negative Blood, Urine Small (*) RBC, Urine 3.0 WBC, Urine 2.9 Squamous Epithelial, Urine 36 Bacteria, Urine Negative Hyaline Casts, Urine 0.0 POC GLUCOSE - Abnormal POCT GLUCOSE, BLOOD - Abnormal Glucose POCT 524 (*) POCT Comment RN Notified POCT GLUCOSE, BLOOD - Abnormal Glucose POCT 272 (*) POCT GLUCOSE, BLOOD - Abnormal Glucose POCT 220 (*) MAGNESIUM - Normal Magnesium 2.0 BETA HYDROXYBUTYRATE - Normal Beta-Hydroxybutyrate 0.9 CBC AND DIFFERENTIAL Narrative: The following orders were created for panel order CBC and differential. Procedure Abnormality Status --------- ------ CBC auto differential[[id number]] Final result Please view results for these tests on the individual orders. URINALYSIS WITH REFLEX MICROSCOPIC Narrative: The following orders were created for panel order Urinalysis with reflex microscopic. Procedure Abnormality Status --------- ------ Urinalysis with reflex ...[[id number]] Abnormal Final result Please view results for these tests on the individual orders. CBC WITH AUTO DIFFERENTIAL WBC 9.1 RBC 4.40 Hemoglobin 12.7 Hematocrit 37.8 MCV 86.5 MCH 29.1 MCHC 33.6 RDW 13.4 Platelets 298 MPV 10.2 NRBC 0.0 NRBC Absolute 0.00 Neutrophils Relative 71.7 Lymphocytes Relative 21.7 Monocytes Relative 5.4 Eosinophils Relative 0.6 Basophils Relative 0.3 Immature Granulocytes Relative 0.3 Neutrophils Absolute 6.50 Lymphocytes Absolute 1.97 Monocytes Absolute 0.49 Eosinophils Absolute 0.05 Basophils Absolute 0.03 Immature Granulocytes Absolute 0.03 POCT GLUCOSE, BLOOD Clinical Impressions as of 06/09/25 0938 Epigastric pain Hyperglycemia Dx/Tx significantly limited by social determinants of health: hx of alcohol abuse At 7 PM, I signed out care of patient to Dr. Caballero emergency medicine. Appreciate care. Rafael Caban MD 06/06/25 0955 [1] History reviewed. No pertinent past medical history. [2] Past Surgical History: Procedure Laterality Date HYSTERECTOMY 2006 [3] No current facility-administered medications for this encounter. Current Outpatient Medications Medication Sig Dispense Refill amitriptyline (ELAVIL) 25 mg tablet Take 2 tablets (50 mg total) by mouth at bedtime as needed (insomnia). aspirin 81 mg EC tablet Take 1 tablet (81 mg total) by mouth 1 (one) time each day. clonazePAM (KlonoPIN) 0.5 mg tablet Take 1 tablet (0.5 mg total) by mouth 2 (two) times a day if needed for anxiety. diclofenac (VOLTAREN) 75 mg EC tablet Take 1 tablet (75 mg total) by mouth 2 (two) times a day if needed (Foot pain). docusate sodium (COLACE) 100 mg capsule Take 1 capsule (100 mg total) by mouth every 12 (twelve) hours. 60 capsule 0 doxepin (SINEquan) 100 mg capsule Take 1 capsule (100 mg total) by mouth at bedtime. fluticasone propionate (FLONASE) 50 mcg/actuation nasal spray Administer 1 spray into each nostril 1 (one) time each day. HYDROcodone-acetaminophen (NORCO) 5-325 mg per tablet Take 1 tablet by mouth every 6 (six) hours ifneeded for severe pain for up to 3 days. Max Daily Amount: 4 tablets 12 tablet 0 insulin lispro (HumaLOG KwikPen) 100 unit/mL injection pen Inject 8-18 Units under the skin 3 (three) times a day before meals. lamoTRIgine (LaMICtal) 100 mg tablet Take 1 tablet (100 mg total) by mouth at bedtime. lamoTRIgine (LaMICtal) 25 mg tablet Take 2 tablets (50 mg total) by mouth at bedtime. Lantus Solostar U-100 Insulin 100 unit/mL (3 mL) injection pen Inject 80 Units under the skin at bedtime. montelukast (SINGULAIR) 10 mg tablet Take 1 tablet (10 mg total) by mouth at bedtime. ondansetron (ZOFRAN) 4 mg tablet Take 1 tablet (4 mg total) by mouth every 6 (six) hours for 3 days. 12 tablet 0 pantoprazole (PROTONIX) 40 mg EC tablet Take 1 tablet (40 mg total) by mouth 2 (two) times a day before meals. polyethylene glycol (MIRALAX) 17 gram packet Take 17 g by mouth 1 (one) time each day for 6 days. 102 g 0 pregabalin (LYRICA) 150 mg capsule Take 1 capsule (150 mg total) by mouth. FOREST 1 CAPSULE BY MOUTH IN THE MORNING AND 2 CAPSULES BY MOUTH AT BEDTIME tamsulosin (FLOMAX) 0.4 mg 24 hr capsule Take 1 capsule (0.4 mg total) by mouth 1 (one) time each day. Capsules should be taken 30 minutes following the same meal each day. [4] Allergies Allergen Reactions Septra [Sulfamethoxazole-Trimethoprim] Swelling Shellfish Derived Swelling Sulfa (Sulfonamide Antibiotics) Swelling [5] No family history on file. Rafael Caban MD 06/09/25 0939 * Alvino Vale MD - 06/06/2025 2:33 PM EST Patient is signed out to me by Dr. Caban. Briefly, the patient is a 50-year-old female who is being evaluated here with chief complaint of acute abdominal pain in the setting of chronic pancreatitis. Patient reports she was recently admitted for pancreatitis flare. Patient reports that she feels her pain is similar. At time of signout a CT scan of the ab pelvis was pending, I did review this and there are no acutefindings noted. Patient was quite hyperglycemic upon initial presentation for which she did receive fluids and insulin. Upon my reevaluation she was feeling much improved. She did request to be discharged and will take at home pain medications and follow-up with her outpatient doctor as needed. I performed a substantial portion of the Medical Decision Making. Alvino Vale MD 06/06/25 1733 Alvino Vale MD 06/06/25 2111 documented in this encounter Plan of Treatment Not on file documented as of this encounter Procedures Procedure Name Priority Date/Time Associated Diagnosis Comments POCT GLUCOSE BLOOD Routine 06/06/2025 8: [address] ABDOMEN PELVIS W CONTRAST STAT 06/06/2025 7:25 PM EST POCT GLUCOSE BLOOD Routine 06/06/2025 7: 00 PM EST URINALYSIS WITH REFLEX MICROSCOPIC STAT 06/06/2025 4:25 PM EST URINALYSIS WITH REFLEX MICROSCOPIC STAT 06/06/2025 4:25 PM EST BETA HYDROXYBUTYRATE STAT 06/06/2025 3:01 PM EST CBC WITH AUTO DIFFERENTIAL STAT 06/06/2025 3:01 PM EST CBC AND DIFFERENTIAL STAT 06/06/2025 3:01 PM EST OSMOLALITY STAT 06/06/2025 3:01 PM EST MAGNESIUM STAT 06/06/2025 3:01 PM EST LIPASE STAT 06/06/2025 3:01 PM EST VENOUS BLOOD GAS STAT 06/06/2025 3:01 PM EST COMPREHENSIVE METABOLIC PANEL STAT 06/06/2025 3:01 PM EST POC GLUCOSE STAT 06/06/2025 2:57 PM EST POCT GLUCOSE BLOOD Routine 06/06/2025 2: 54 PM EST documented in this encounter Results * (ABNORMAL) POCT Glucose, blood (06/06/2025 8:17 PM EST) Glucose POCT 220(H) 70 - 100 mg/dL 06/06/2025 8:17 PM EST [facility] Blood Capillary blood specimen / Unknown 06/06/2025 8:17 PM EST 06/06/2025 8:18 PM EST us Alvino Vale MD LAB POINT OF CARE TE ST DOCKED DEVICE UNSOLICITED RESULTS Final Result [facility] [address] [place] [address], [place] [phone] * CT Abdomen Pelvis w Contrast (06/06/2025 7:25 PM EST) Anatomical Region Laterality Modality Body Computed Tomogra phy 06/06/2025 8:36 PM EST Impressions 06/06/2025 8:36 PM EST 1. No acute intraabdominal or pelvic pathology. 2. Hepatomegaly with steatosis. 3. Distended urinary bladder without wall thickening. 4. Moderate stool burden. This document has been electronically signed by: Zoran Osman MD on 06/06/2025 20:36:48 Narrative 06/06/2025 8:36 PM EST INDICATION: Abd pain, unspecified CT abdomen and pelvis with contrast Comparison: MR/SR - MR ABD WO CONTRAST MRCP - 05/22/25 12:57 EDT US - US ABD LIMITED - 05/22/25 01:[address] - CT ABDOMEN PELVIS W CONTRAST - 05/22/25 00:30 EDT Findings: The lung bases are clear. Enlarged steatotic liver measuring 20.1 cm in the craniocaudal dimension. Gallbladder, spleen, and pancreas are within normal limits. Bilateral adrenal adenomas, as characterized on recent MRI. No hydronephrosis. Symmetric contrast enhancement of the kidneys. Mild wall thickening of the distal esophagus. Moderate stool burden. No bowel obstruction, pneumatosis or pneumoperitoneum. Normal appendix. Aortic atherosclerosis. No aneurysm. Portal venous system is patent. Hysterectomy. Distended urinary bladder without wall thickening. No acute fracture. Procedure Note Zoran Osman MD - 06/06/2025 INDICATION: Abd pain, unspecified CT abdomen and pelvis with contrast Comparison: MR/SR - MR ABD WO CONTRAST MRCP - 05/22/25 12:57 EDT US - US ABD LIMITED - 05/22/25 01:[address] - CT ABDOMEN PELVIS W CONTRAST - 05/22/25 00:30 EDT Findings: The lung bases are clear. Enlarged steatotic liver measuring 20.1 cm in the craniocaudaldimension. Gallbladder, spleen, and pancreas are within normal limits. Bilateral adrenal adenomas, as characterized on recent MRI. No hydronephrosis. Symmetric contrast enhancement of the kidneys. Mild wall thickening of the distal esophagus. Moderate stool burden. No bowel obstruction, pneumatosis or pneumoperitoneum. Normal appendix. Aortic atherosclerosis. No aneurysm. Portal venous system is patent. Hysterectomy. Distended urinary bladder without wall thickening. No acute fracture. IMPRESSION: 1. No acute intraabdominal or pelvic pathology. 2. Hepatomegaly with steatosis. 3. Distended urinary bladder without wall thickening. 4. Moderate stool burden. This document has been electronically signed by: Zoran Osman MD on 06/06/2025 20:36:48 Rafael Caban MD IM CT PROCEDURES Final Res ult * (ABNORMAL) POCT Glucose, blood (06/06/2025 7:00 PM EST) Glucose POCT 272(H) 70 - 100 mg/dL 06/06/2025 7:01 PM EST [facility] ([facility]) [facility] Blood Capillary blood specimen / Unknown 06/06/2025 7:00 PM EST 06/06/2025 7:02 PM EST Alvino Vale MD LAB POINT OF CARE TE ST DOCKED DEVICE UNSOLICITED RESULTS Final Result [facility] [address] [place] [address], [place] [phone] * (ABNORMAL) Urinalysis with reflex microscopic (06/06/2025 4:25 PM EST) Specific [place] Urine 1.035(H) 1.003 - 1.030 LAB URINALYSIS - AUTOMATED METHOD 06/06/2025 5:31 PM [facility] pH, Urine 6.0 5.0 - 8.0 pH LAB URINALYSIS - AUTOMATED METHOD 06/06/2025 5:31 PM [facility] Leukocytes, Urine Negative Negative LAB URINALYSIS - AUTOMATED METHOD 06/06/2025 5:31 PM [facility] Nitrite, Urine Negative Negative LAB URINALYSIS - AUTOMATED METHOD 06/06/2025 5:31 PM [facility] Protein, Urine Negative <=Trace mg/dL LAB URINALYSIS - AUTOMATED METHOD 06/06/2025 5:31 PM [facility] Glucose, Urine >=1000(A) Negative mg/dL LAB URINALYSIS - AUTOMATED METHOD 06/06/2025 5:31 PM [facility] Ketones, Urine Negative Negative mg/dL LAB URINALYSIS - AUTOMATED METHOD 06/06/2025 5:31 PM [facility] Urobilinogen , Urine 0.2 0.2 - 1.0 mg/dL LAB URINALYSIS - AUTOMATED METHOD 06/06/2025 5:31 PM [facility] Bilirubin, Urine Negative Negative LAB URINALYSIS - AUTOMATED METHOD 06/06/2025 5:31 PM [facility] Blood, Urine Small(A) Negative LAB URINALYSIS - AUTOMATED METHOD 06/06/2025 5:31 PM [facility] RBC, Urine 3.0 0 - 4 /HPF LAB URINALYSIS - AUTOMATED METHOD 06/06/2025 5:31 PM [facility] WBC, Urine 2.9 0 - 4 /HPF LAB URINALYSIS - AUTOMATED METHOD 06/06/2025 5:31 PM EST [facility] Squamous Epithelial, Urine 36 0 - 60 /LPF LAB URINALYSIS - AUTOMATED METHOD 06/06/2025 5:31 PM [facility] Bacteria, Urine Negative Negative /HPF LAB URINALYSIS - AUTOMATED METHOD 06/06/2025 5:31 PM [facility] Hyaline Casts, Urine 0.0 0 - 3 /LPF LAB URINALYSIS - AUTOMATED METHOD 06/06/2025 5:31 PM [facility] Urine Urine specimen obtained by clean catch procedure / Unknown Non-blood Collection / Unknown 06/06/2025 4:25 PM EST 06/06/2025 5:13 PM EST Андрей Vázquez MD LAB URINE ORDERABLES Final Result [facility] [address] [place] [address], [place] [phone] * CBC auto differential (06/06/2025 3:01 PM EST) WBC 9.1 4.8 - 10.8 K/mcL LAB HEMETOLOGY METHOD 06/06/2025 3:20 PM [facility] RBC 4.40 3.80 - 4.80 M/mcL LAB HEMETOLOGY METHOD 06/06/2025 3:20 PM [facility] Hemoglobin 12.7 11.5 - 16.0 g/dL LAB HEMETOLOGY METHOD 06/06/2025 3:20 PM [facility] Hematocrit 37.8 35.0 - 47.0 % LAB HEMETOLOGY METHOD 06/06/2025 3:20 PM [facility] MCV 86.5 79.0 - 98.0 FL LAB HEMETOLOGY METHOD 06/06/2025 3:20 PM [facility] MCH 29.1 27.0 - 32.0 pcg LAB HEMETOLOGY METHOD 06/06/2025 3:20 PM [facility] MCHC 33.6 32.0 - 37.0 g/dL LAB HEMETOLOGY METHOD 06/06/2025 3:20 PM [facility] RDW 13.4 11.0 - 15.0 % LAB HEMETOLOGY METHOD 06/06/2025 3:20 PM [facility] Platelets 298 130 - 400 K/mcL LAB HEMETOLOGY METHOD 06/06/2025 3:20 PM [facility] MPV 10.2 7.0 - 11.0 FL LAB HEMETOLOGY METHOD 06/06/2025 3:20 PM [facility] NRBC 0.0 <1.0 % LAB HEMETOLOGY METHOD 06/06/2025 3:20 PM [facility] NRBC Absolute 0.00 <0.10 K/mcL LAB HEMETOLOGY METHOD 06/06/2025 3:20 PM [facility] Neutrophils Relative 71.7 % LAB HEMETOLOGY METHOD 06/06/2025 3:20 PM [facility] Lymphocytes Relative 21.7 % LAB HEMETOLOGY METHOD 06/06/2025 3:20 PM [facility] Monocytes Relative 5.4 % LAB HEMETOLOGY METHOD 06/06/2025 3:20 PM [facility] Eosinophils Relative 0.6 % LAB HEMETOLOGY METHOD 06/06/2025 3:20 PM [facility] Basophils Relative 0.3 % LAB HEMETOLOGY METHOD 06/06/2025 3:20 PM [facility] Immature Granulocytes Relative 0.3 % LAB HEMETOLOGY METHOD 06/06/2025 3:20 PM [facility] Neutrophils Absolute 6.50 1.50 - 7.00 K/mcL LAB HEMETOLOGY METHOD 06/06/2025 3:20 PM EST [facility] Lymphocytes Absolute 1.97 1.00 - 5.00 K/[facility] LAB HEMETOLOGY METHOD 06/06/2025 3:20 PM EST [facility] Monocytes Absolute 0.49 0.20 - 1.00 K/[facility] LAB HEMETOLOGY METHOD 06/06/2025 3:20 PM EST [facility] Eosinophils Absolute 0.05 0.00 - 0.50 K/[facility] LAB HEMETOLOGY METHOD 06/06/2025 3:20 PM EST [facility] Basophils Absolute 0.03 0.00 - 0.20 K/[facility] LAB HEMETOLOGY METHOD 06/06/2025 3:20 PM [facility] Immature Granulocytes Absolute 0.03 0.00 - 0.03 K/[facility] LAB HEMETOLOGY METHOD 06/06/2025 3:20 PM EST [facility] Blood Venous blood specimen / Unknown Venipuncture / Unknown 06/06/2025 3:01 PM EST 06/06/2025 3:06 PM EST us Андрей Vázquez MD LAB BLOOD ORDERABLES Final Result [facility] [address] [place] [address], * (ABNORMAL) Venous blood gas (06/06/2025 3:01 PM EST) pH, [place] 7.39 7.32 - 7.42 pH 06/06/2025 3:15 PM EST [facility] pCO2, [place] 50 41 - 51 mmHg 06/06/2025 3:15 PM [facility] pO2, [place] 17(L) 25 - 40 mmHg 06/06/2025 3:15 PM [facility] HCO3, Venous 26.1(H) 22.0 - 26.0 mmol/L 06/06/2025 3:15 PM EST [facility] O2 Sat, [place] <30.0 % 06/06/2025 3:15 PM EST [facility] Base Excess, [place] 4.2(H) -2.0 - 2.0 mmol/L 06/06/2025 3:15 PM EST [facility] Blood Venous blood specimen / Unknown Venipuncture / Unknown 06/06/2025 3:01 PM EST 06/06/2025 3:05 PM EST Андрей Vázquez MD LAB BLOOD ORDERABLES Final Result Performing Organization Address [facility]/ZIP Co de Phone Number [facility] [address] [place] [address], [place] [phone] * Beta hydroxybutyrate (06/06/2025 3:01 PM EST) Beta-Hydroxybu tyrate 0.9 0.2 - 2.8 mg/dL LAB CHEMISTRY METHOD 06/06/2025 4:05 PM EST [facility] Blood Venous blood specimen / Unknown Venipuncture / Unknown 06/06/2025 3:01 PM EST 06/06/2025 3:06 PM EST Андрей Vázquez MD LAB BLOOD ORDERABLES Final Result [facility] [address] [place] [address], [place] [phone] * (ABNORMAL) Osmolality (06/06/2025 3:01 PM EST) Osmolality Gemma 315(H) 280 - 300 mOsm/kg LAB CHEMISTRY METHOD 06/06/2025 3:47 PM EST [facility] Blood Venous blood specimen / Unknown Venipuncture / Unknown 06/06/2025 3:01 PM EST 06/06/2025 3:06 PM EST Андрей Vázquez MD LAB BLOOD ORDERABLES Final Result Performing Organization Address [facility]/ZIP Co de Phone Number [facility] [address] [place] [address], [place] [phone] * Magnesium (06/06/2025 3:01 PM EST) [facility] Magnesium 2.0 1.9 - 2.6 mg/dL LAB CHEMISTRY METHOD 06/06/2025 4:04 PM EST [facility] Blood Venous blood specimen / Unknown Venipuncture / Unknown 06/06/2025 3:01 PM EST 06/06/2025 3:06 PM EST Андрей Vázquez MD LAB BLOOD ORDERABLES Final Result Performing Organization Address [facility]/ZIP Co de Phone Number [facility] [address] [place] [address], [place] [phone] * (ABNORMAL) Lipase (06/06/2025 3:01 PM EST) [facility] Lipase 103(H) 13 - 75 unit/L LAB CHEMISTRY METHOD 06/06/2025 4:08 PM EST [facility] Blood Venous blood specimen / Unknown Venipuncture / Unknown 06/06/2025 3:01 PM EST 06/06/2025 3:06 PM EST us Андрей Vázquez MD LAB BLOOD ORDERABLES Final Result Performing Organization Address City/[facility]/ZIP Co de Phone Number [facility] [address] [place] [address], [place] [phone] * (ABNORMAL) Comprehensive metabolic panel (06/06/2025 3:01 PM EST) [facility] Sodium 131(L) 133 - 145 mmol/L LAB CHEMISTRY METHOD 06/06/2025 4:18 PM [facility] Potassium 4.3 3.5 - 5.5 mmol/L LAB CHEMISTRY METHOD 06/06/2025 4:18 PM [facility] Chloride 97 96 - 110 mmol/L LAB CHEMISTRY METHOD 06/06/2025 4:18 PM [facility] CO2 27 21 - 32 mmol/L LAB CHEMISTRY METHOD 06/06/2025 4:18 PM [facility] Anion Gap 7 3 - 11 LAB CHEMISTRY METHOD 06/06/2025 4:18 PM [facility] Glucose 539(HH) 70 - 100 mg/dL LAB CHEMISTRY METHOD 06/06/2025 4:18 PM [facility] BUN 17 5 - 25 mg/dL LAB CHEMISTRY METHOD 06/06/2025 4:18 PM [facility] Creatinine 1.04 0.50 - 1.10 mg/dL LAB CHEMISTRY METHOD 06/06/2025 4:18 PM [facility] eGFR 66 >=60 mL/min/1. 73m2 LAB CHEMISTRY METHOD 06/06/2025 4:18 PM [facility] Comment:Calculation based on the Chronic Kidney Disease Epidemiology Collaboration (CKD-EPI) equation refit without adjustment for race. BUN/Creatinine Ratio 16.3 LAB CHEMISTRY METHOD 06/06/2025 4:18 PM [facility] Calcium 9.2 8.5 - 10.5 mg/dL LAB CHEMISTRY METHOD 06/06/2025 4:18 PM [facility] AST (SGOT) 34 10 - 42 unit/L LAB CHEMISTRY METHOD 06/06/2025 4:18 PM [facility] ALT (SGPT) 76(H) 10 - 60 unit/L LAB CHEMISTRY METHOD 06/06/2025 4:18 PM [facility] Alkaline Phosphatase 129(H) 42 - 121 unit/L LAB CHEMISTRY METHOD 06/06/2025 4:18 PM EST [facility] Total Protein 7.8 6.0 - 8.0 g/dL LAB CHEMISTRY METHOD 06/06/2025 4:18 PM EST [facility] Albumin 3.7 3.2 - 5.0 g/dL LAB CHEMISTRY METHOD 06/06/2025 4:18 PM EST [facility] Total Bilirubin 0.2 0.0 - 1.4 mg/dL LAB CHEMISTRY METHOD 06/06/2025 4:18 PM EST [facility] Blood Venous blood specimen / Unknown Venipuncture / Unknown 06/06/2025 3:01 PM EST 06/06/2025 3:06 PM EST Андрей Vázquez MD LAB BLOOD ORDERABLES Final Result [facility] [address] [place] [address], * (ABNORMAL) POC glucose manually resulted (06/06/2025 2:57 PM EST) Blood Capillary blood specimen / Unknown 06/06/2025 2:57 PM EST Андрей Vázquez MD POINT OF CARE TEST ENTER/ED IT ORDERABLES Final Result * (ABNORMAL) POCT Glucose, blood (06/06/2025 2:54 PM EST) [facility] Signature Glucose POCT 524(HH) 70 - 100 mg/dL 06/06/2025 2:56 PM EST [facility] POCT Comment RN Notified 06/06/2025 2:56 PM EST [facility] Blood Capillary blood specimen / Unknown 06/06/2025 2:54 PM EST 06/06/2025 2:57 PM EST us Generic Provider Poct LAB POINT OF CARE TEST DOCKED DEVICE UNSOLICITED RESULTS Final Result [facility] [place] [facility] [address] [place] [address], documented in this encounter Visit Diagnoses Diagnosis Epigastric pain- Primary Abdominal pain, epigastric Hyperglycemia Other abnormal glucose documented in this encounter Administered Medications Inactive Administered Medications - up to 3 most recent administrations Medication Order MAR Action Action Date Dose Rate Site insulin lispro injection 10 Units 10 Units, subcutaneous, Once, On Wed06/06/25 at 1650, For 1 dose Given 06/06/2025 5:25 PM EST 10 Units Right Upper Abdomen iopamidoL (ISOVUE-370) 370 mg iodine /mL (76 %) injection 90 mL 90 mL, intravenous, Once in imaging, Starting on Wed06/06/25 at 1918, For 1 dose Given 06/06/2025 7:18 PM EST 90 mL lactated Ringer's bolus 2,000 mL 2,000 mL, intravenous, at 2,000 mL/hr, Administer over 1 Hours, Once, On Wed06/06/25 at 1650, For 1 dose New Bag 06/06/2025 5:24 PM EST 2,000 mL 2000 mL/hr morphine injection 2 mg 2 mg, intravenous, Once, On Wed06/06/25 at 2036, For 1 dose Given 06/06/2025 8:44 PM EST 2 mg morphine injection 4 mg 4 mg, intravenous, Once, On Wed06/06/25 at 1650, For 1 dose Given 06/06/2025 5:24 PM EST 4 mg ondansetron (PF) (ZOFRAN) injection 4 mg 4 mg, intravenous, Once, On Wed06/06/25 at 1650, For 1 dose Given 06/06/2025 5:24 PM EST 4 mg sodium chloride 0.9 % flush 10 mL 10 mL, intravenous, Once, On Wed06/06/25 at 1919, For 1 dose Given 06/06/2025 7:19 PM EST 10 mL documented in this encounter Active and Recently Administered Medications Times are shown in EST. Scheduled Medication Order 06/04/2025 06/05/2025 06/06/2025 insulin lispro injection 10 Units (COMPLETED) 10 Units, subcutaneous, Once, On Wed06/06/25 at 1650, For 1 dose 1725 (Given - Provid er: Cony Dominguez RN) iopamidoL (ISOVUE-370) 370 mg iodine /mL (76 %) injection 90 mL (COMPLETED) 90 mL, intravenous, Once in imaging, Starting on Wed06/06/25 at 1918, For 1 dose 1917 (Given - Provid er: Emilie Mcgarry) lactated Ringer's bolus 2,000 mL (COMPLETED) 2,000 mL, intravenous, at 2,000 mL/hr, Administer over 1 Hours, Once, On Wed06/06/25 at 1650, For 1 dose 1723 (New Bag - Prov ider: Cony Dominguez RN)2028 (Stopped - Provider: Regina Ricardo RN) morphine injection 2 mg (COMPLETED) 2 mg, intravenous, Once, On Wed06/06/25 at 2036, For 1 dose 2043 (Given - Provid er: Regina Ricardo RN) morphine injection 4 mg (COMPLETED) 4 mg, intravenous, Once, On Wed06/06/25 at 1650, For 1 dose 1723 (Given - Provid er: Cony Dominguez RN) ondansetron (PF) (ZOFRAN) injection 4 mg (COMPLETED) 4 mg, intravenous, Once, On Wed06/06/25 at 1650, For 1 dose 1723 (Given - Provid er: Cony Dominguez RN) sodium chloride 0.9 % flush 10 mL (COMPLETED) 10 mL, intravenous, Once, On Wed06/06/25 at 1919, For 1 dose 1918 (Given - Provid er: Emilie Mcgarry) documented in this encounter Orders Lab Orders Without Results Count Last Ordered D ate First Ordered Date POCT GLUCOSE, BLOOD 1 06/06/2025 documented in this encounter Care Teams 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
--- OUTSIDE RECORDS SUMMARY | 2025-06-08 23:44 | XMS_ITS | Encounter Summary ---
Author Organization [facility] Address [address] [place] [address] Care Team Providers Care Patient Access Representative Name Role Phone Physician, Pcp Unknown Primary Care Provider Judy vailable Reason for Referral * Consultation (Routine) - Authorized Specialty Diagnoses / Procedures Referred By Contact Referred To Contact Cardiothoracic Surgery / Cardiology Diagnoses Atherosclerotic peripheral vascular disease with intermittent claudication (CMS/HCC V24) Lori Adhikari PA [address] [place] [address] Phone: tel: fax:[phone] [facility] [address] [place] [address] Phone: tel: fax: Referral ID Status Reason Start Date Expiration Date Visits Requested Visits Authorized [id number] Authorized Specialty Services Required 06/09/2025 06/09/2026 1 1 Reason for Visit * Reason Comments Abdominal Pain (R) sided abd pain. High blood sugar in the 400s Encounter Details Date Type Department Care Team (Late st Contact Info) Description 06/08/2025 11:44 PM EST - 06/09/2025 4:38 AM EST Emergency [facility] Emergency [address] [place] [id number] Atherosclerotic peripheral vascular disease with intermittent claudication (CMS/HCC V24) (Primary Dx); Nausea; Constipation, unspecified constipation type Discharge Disposition: Home or Self Care Social History Tobacco Use Types Packs/Day Years Used Date Smoking Tobacco: Every Day Cigarettes Smokeless Tobacco: Never Alcohol Use Standard Drinks/Week Comments Never 0 (1 standard drink = 0.6 oz pur e alcohol) Housing Instability Answer Date Recorde d Are you worried that in the next 2 months you may not have stable housing? No 05/22/2025 Food Access & Nutrition Answer Date Rec orded Do you have access to a vari ety of food including fruits and vegetables? Yes 05/22/2025 Access to Healthcare Answer Date Record ed Within the last 3 months, ho w many times did you visit the emergency [...] care for your loved ones. For example, child development director or elderly care for an older adult? [...] Sign Reading Time Taken Comments Blood Pressure 141/86 06/09/2025 2:39 AM EST Pulse 85 06/09/2025 2:39 AM EST Temperature 36.9 C (98.5 F) 06/09/2025 2:39 AM EST Respiratory Rate 18 06/09/2025 2:39 AM EST Oxygen Saturation 97% 06/09/2025 2:39 AM EST Inhaled Oxygen Concentration - - Weight 72.6 kg (160 lb) 06/08/2025 11:18 PM EST Height 165.1 cm (5' 5 ) 06/08/2025 11:18 PM EST Body Mass Index 26.63 06/08/2025 11:18 PM EST documented in this encounter Functional [...] 9:25 PM EST Regina Ricardo RN * Calculated C-SSRS Risk Score (Lifetime/Recent) Answer Date of Assessment Author No Risk Indicated 06/08/2025 11:21 PM EST Kalli Koch RN * Noble Suicide Severity Rating Scale (Screener/Recent Self-Report) Question Answer Date of Assessment Author 1. Wish to be (Past 1 Month) No 06/08/2025 11:21 PM iTng Hanson RN 2. Non-Specific Active Suici hilario Thoughts (Past 1 Month) No 06/08/2025 11:21 PM Jany Hanson RN 6. Suicidal Behavior (Lifetime) No 11:21 PM Kalli Hanson RN documented as of this encounter Mental Status * Because of a physical, mental, or emotional condition, do you have serious difficulty concentrating, remembering, or making decisions? (5 years old or older) Answer Entry Date Author No 06/06/2025 9:25 PM Regina Allen RN documented in this encounter Discharge Instructions * Discharge Instructions* BRUNO Solomon - 06/09/2025 4:32 AM EST Take Colace and MiraLAX for constipation. Take Zofran for nausea. Increase your hydration. Follow-up with your primary care provider. Follow-up with your vascular surgeon. Return to the emergency department with any new worsening or concerning symptoms. * Attachments The following attachments cannot be sent through Care Everywhere. * Constipation (Tajik) * PAD (Peripheral Arterial Disease): Legs: General Info (Tajik) documented in this encounter Medications at Time [...] a day if needed (Foot pain). 04/26/2025 docusate sodium (COLACE) 100 mg capsule Take 1 capsule (100 mg total) by mouth every 12 (twelve) hours. 60 capsule 06/09/2025 doxepin (SINEquan) 100 mg capsule Take 1 [...] mg total) by mouth at bedtime. 05/12/2025 ondansetron (ZOFRAN) 4 mg tablet Take 1 tablet (4 mg total) by mouth every 6 (six) hours for 3 days. 12 tablet 06/09/2025 pantoprazole (PROTONIX) 40 mg EC tablet Take 1 tablet (40 mg total) by mouth 2 (two) times a day before meals. 02/21/2025 polyethylene glycol (MIRALAX) 17 gram packet Take 17 g by mouth 1 (one) time each day for 6 days. 102 g 06/09/2025 5 pregabalin (LYRICA) 150 mg capsule Take 1 [...] Refills Last Filled Start Date End Date ondansetron (ZOFRAN) 4 mg tablet Take 1 tablet (4 mg total) by mouth every 6 (six) hours for 3 days. 12 tablet 06/09/2025 polyethylene glycol (MIRALAX) 17 gram packet Take 17 g by mouth 1 (one) time each day for 6 days. 102 g 06/09/2025 5 docusate sodium (COLACE) 100 mg capsule Take 1 capsule (100 mg total) by mouth every 12 (twelve) hours. 60 capsule 06/09/2025 5 documented in this encounter Discharge Disposition Disposition Code Departure Means Destination Comment s Home or Self Care Patient alert and oriented at time of discharge. Patient discharged by provider. Patient left with even and steady gait. documented in this encounter Progress Notes * Kalli Pickard RN - 06/08/2025 11:19 PM EST Patient comes in for abdominal pain, reports it is mid epigastric and radiates to the right flank area, this pain began 2 days ago. Patient endorses diarrhea and nausea that is new since her visit here two days ago. Patient also is reporting her glucose monitor keeps reporting as high (>500). * BRUNO Solomon - 06/08/2025 10:48 PM EST HPI Chief Complaint Patient presents with Abdominal Pain (R) sided abd pain. High blood sugar in the 400s Patient 50-year-old female past medical history diabetes with neuropathy on insulin therapy, anxiety, insomnia, history of hospitalization earlier this fall for acute pancreatitis presents to the emergency department for evaluation of right sided upper abdominal discomfort with elevated blood sugars at home over the past 2 days. The symptoms do radiate into the right flank. She has had diarrhea and nausea no vomiting. She denies fevers chills. History provided by: Patient gas check pad maker used: Yes Sharron Coma Scale Score: 15 Patient History Medical History[1] Surgical History[2] Family History[3] Social History Tobacco Use Smoking status: Every Day Types: Cigarettes Smokeless tobacco: Never Substance Use Topics Alcohol use: Never Drug use: Never Review of Systems Review of Systems All other systems reviewed and are negative. Physical Exam ED Triage Vitals [06/08/25 2318] Temp Heart Rate Resp BP 36.6 ??C (97.8 ??F) 102 19 (!) 146/86 SpO2 Temp Source Heart Rate Source Patient Position 100 % Temporal Monitor Sitting BP Location FiO2 (%) Right arm -- Physical Exam Vitals and nursing note reviewed. Constitutional: General: She is not in acute distress. Appearance: Normal appearance. She is normal weight. She is not toxic-appearing or diaphoretic. HENT: Head: Normocephalic and atraumatic. Nose: Nose normal. Mouth/Throat: Mouth: Mucous membranes are moist. Pharynx: No oropharyngeal exudate or posterior oropharyngeal erythema. Eyes: General: No scleral icterus. Extraocular Movements: Extraocular movements intact. Conjunctiva/sclera: Conjunctivae normal. Cardiovascular: Rate and Rhythm: Normal rate and regular rhythm. Pulses: Normal pulses. Heart sounds: Normal heart sounds. Pulmonary: Effort: Pulmonary effort is normal. Breath sounds: Normal breath sounds. Abdominal: General: There is distension. Palpations: Abdomen is soft. Tenderness: There is generalized abdominal tenderness. There is no right CVA tenderness, left CVA tenderness, guarding or rebound. Musculoskeletal: General: Normal range of motion. Cervical back: Normal range of motion and neck supple. Skin: General: Skin is warm and dry. Capillary Refill: Capillary refill takes less than 2 seconds. Neurological: General: No focal deficit present. Mental Status: She is alert. Cranial Nerves: No cranial nerve deficit. Motor: No weakness. Gait: Gait normal. ED Course & MDM ED Course as of 06/09/25 0544 Sat Jun 09, 2025 0127 CBC and differential(!) No clinically significant abnormality. No leukocytosis leukopenia acute anemia platelet abnormality. [AW] 0132 Lactate, with Reflex Normal [AW] 0132 Magnesium Normal [AW] 0132 Lipase(!) Mildly elevated [AW] 0133 POC , urine manually resulted Negative [AW] 0239 Comprehensive Metabolic Panel (CMP)(!) Patient with hyperglycemia 360 no acidemia no metabolic derangement present no evidence of acute hepatic or renal injury. Isolated elevated ALT at 82. [AW] 0240 Urinalysis with reflex microscopic ([id number])(!) Patient with glucose present, negative infectious etiology. [AW] 0543 CT Abdomen Pelvis w Contrast IMPRESSION: Moderate stenosis distal abdominal aorta due to combination calcified and soft plaque, stable. Dense colonic fecal retention without obstruction. No evidence for acute appendicitis. Stable enlarged, fatty liver. Adrenal glands with stable bilateral adenomas. This document has been electronically signed by: Yazan Hernandez MD on 06/09/2025 02:58:47 [AW] 0543 Patient states that she feels that her legs have not gotten enough blood flow she states this has been persistent for the last 5 years and has worsened over the past several months. This does correlate with her CT imaging which is reviewed with attending physician from May forward. Patienthas not seen vascular surgery outpatient, referral has been written. This is likely a chronic although worsening condition. Patient has had diarrhea, there is a large stool burden, therefore despite 2 days of diarrhea symptoms, will discharge with laxative and Colace. Patient is stable for outpatient management at this time. Further workup not indicated clinically. Questions were answered through translation. [AW] 0544 Return precautions were given. [AW] ED Course User Index [AW] BRUNO Solomon Clinical Impressions as of 06/09/25 0544 Atherosclerotic peripheral vascular disease with intermittent claudication (CMS/[facility] V24) Nausea Constipation, unspecified constipation type Medical Decision Making Differential diagnosis includes pancreatitis biliary tree pathology constipation cystitis nephritisureteral stone Patient hypertensive afebrile at triage. Patient is nontoxic however she appears not to feel well and she is crying, she does have a mildly distended abdomen without fluid wave. She states this has been present since pancreatitis in May. Patient without history of nephrolithiasis, right sided abdominal pain radiating into the flank. Will rule out emergent medical conditions see ED course. Procedures BRUNO Solomon 06/09/25 2622 [1] History reviewed. No pertinent past medical history. [2] Past Surgical History: Procedure Laterality Date HYSTERECTOMY 2006 [3] No family history on file. BRUNO Solomon 06/09/25 9030 Cosigned by Diamond Caballero MD at 06/09/2025 8:25 AM EST Associated attestation - Diamond Caballero MD - 06/09/2025 8:25 AM EST I was available for consult in real time on shift and if asked my input in care is as outlined by the documentation below by me. If not documented, then I did not participate in the care of this patient and have reviewed the chart as written. Diamond Caballero MD documented in this encounter Plan of Treatment Scheduled Referrals Name Type Priority Associated Diagnoses Order Schedule Ambulatory referral to Cardiovascular Surgery Outpatient Referral Routine Expec geoff: 07/09/2025, Expires: 06/09/2026 documented as of this encounter Procedures Procedure Name Priority Date/Time Associated Diagnosis Comments CT ABDOMEN PELVIS W CONTRAST STAT 06/09/2025 2:09 AM EST POC , URINE DIAGNOSTIC STAT 06/09/2025 1:29 AM EST URINALYSIS WITH REFLEX MICROSCOPIC STAT 06/09/2025 12:53 AM EST URINALYSIS WITH REFLEX MICROSCOPIC STAT 06/09/2025 12:53 AM EST LACTATE, WITH REFLEX STAT 06/09/2025 12:47 AM EST CBC WITH AUTO DIFFERENTIAL STAT 06/09/2025 12:47 AM EST CBC AND DIFFERENTIAL STAT 06/09/2025 12:47 AM EST MAGNESIUM STAT 06/09/2025 12:47 AM EST LIPASE STAT 06/09/2025 12:47 AM EST COMPREHENSIVE METABOLIC PANEL STAT 06/09/2025 12:47 AM EST POCT GLUCOSE BLOOD Routine 06/08/2025 11 :25 PM EST documented in this encounter Results * CT Abdomen Pelvis w Contrast (06/09/2025 2:09 AM EST) Anatomical Region Laterality Modality Body Computed Tomogra phy 06/09/2025 2:58 AM EST Impressions 06/09/2025 2:58 AM EST Moderate stenosis distal abdominal aorta due to combination calcified and soft plaque, stable. Dense colonic fecal retention without obstruction. No evidence for acute appendicitis. Stable enlarged, fatty liver. Adrenal glands with stable bilateral adenomas. This document has been electronically signed by: Yazan Hernandez MD on 06/09/2025 02:58:47 Narrative 06/09/2025 2:58 AM EST INDICATION: Abdominal pain, acute, no prior medical history CT abdomen and pelvis with IV contrast. Comparison: CT - CT ABDOMEN PELVIS W CONTRAST - 06/06/25 19:18 EST Findings: No free air. No solid liver mass. Enlarged at 20.7 cm with fatty infiltration. No calcified gallstones. No clinically significant biliary ductal dilation. No splenomegaly or suspicious splenic lesions. No solid or cystic pancreatic mass. No pancreatic ductal dilation. No acute inflammatory changes. Adrenal glands with stable bilateral adenomas. No suspicious renal mass. No hydronephrosis. No significant stranding. Bladder without acute pathology. Dense colonic fecal retention without obstruction. No evidence for acute appendicitis. No adenopathy. Atheromatous abdominal aortic calcifications without aneurysm. Moderate stenosis distal abdominal aorta due to combination calcified and soft plaque. No suspicious pelvic masses. No acute soft tissue pathology. No acute osseous pathology. Degenerative changes. Procedure Note Yazan Hernandez MD - 06/09/2025 INDICATION: Abdominal pain, acute, no prior medical history CT abdomen and pelvis with IV contrast. Comparison: CT - CT ABDOMEN PELVIS W CONTRAST - 06/06/25 19:18 EST Findings: No free air. No solid liver mass. Enlarged at 20.7 cm with fatty infiltration. No calcified gallstones. No clinically significant biliary ductal dilation. No splenomegaly or suspicious splenic lesions. No solid or cystic pancreatic mass. No pancreatic ductal dilation. No acute inflammatory changes. Adrenal glands with stable bilateral adenomas. No suspicious renal mass. No hydronephrosis. No significant stranding. Bladder without acute pathology. Dense colonic fecal retention without obstruction. No evidence for acute appendicitis. No adenopathy. Atheromatous abdominal aortic calcifications without aneurysm. Moderate stenosis distal abdominal aorta due to combination calcifiedand soft plaque. No suspicious pelvic masses. No acute soft tissue pathology. No acute osseous pathology. Degenerative changes. IMPRESSION: Moderate stenosis distal abdominal aorta due to combination calcifiedand soft plaque, stable. Dense colonic fecal retention without obstruction. No evidence for acute appendicitis. Stable enlarged, fatty liver. Adrenal glands with stable bilateral adenomas. This document has been electronically signed by: Yazan Hernandez MD on 06/09/2025 02:58:[address] PROCEDURES Final Result * POC , urine manually resulted (06/09/2025 1:29 AM EST) Pathologist [facility] HCG, Ur POC Negative Negative Urine Urine specimen obtained by clean catch procedure / Unknown 06/09/2025 1:29 AM EST Lori CARR POINT OF CARE TEST ENTER /EDIT ORDERABLES Final Result * (ABNORMAL) Urinalysis with reflex microscopic (06/09/2025 12:53 AM EST) [facility] [place] Urine 1.038(H) 1.003 - 1.030 LAB URINALYSIS - AUTOMATED METHOD 06/09/2025 2:08 AM [facility] pH, Urine 6.5 5.0 - 8.0 pH LAB URINALYSIS - AUTOMATED METHOD 06/09/2025 2:08 AM [facility] Leukocytes, Urine Negative Negative LAB URINALYSIS - AUTOMATED METHOD 06/09/2025 2:08 AM [facility] Nitrite, Urine Negative Negative LAB URINALYSIS - AUTOMATED METHOD 06/09/2025 2:08 AM [facility] Protein, Urine Negative <=Trace mg/dL LAB URINALYSIS - AUTOMATED METHOD 06/09/2025 2:08 AM [facility] Glucose, Urine >=1000(A) Negative mg/dL LAB URINALYSIS - AUTOMATED METHOD 06/09/2025 2:08 AM [facility] Ketones, Urine Negative Negative mg/dL LAB URINALYSIS - AUTOMATED METHOD 06/09/2025 2:08 AM [facility] Urobilinogen , Urine 0.2 0.2 - 1.0 mg/dL LAB URINALYSIS - AUTOMATED METHOD 06/09/2025 2:08 AM [facility] Bilirubin, Urine Negative Negative LAB URINALYSIS - AUTOMATED METHOD 06/09/2025 2:08 AM [facility] Blood, Urine Small(A) Negative LAB URINALYSIS - AUTOMATED METHOD 06/09/2025 2:08 AM [facility] RBC, Urine 2 0 - 4 /HPF LAB URINALYSIS - AUTOMATED METHOD 06/09/2025 2:08 AM [facility] WBC, Urine 3 0 - 4 /HPF LAB URINALYSIS - AUTOMATED METHOD 06/09/2025 2:08 AM [facility] Squamous Epithelial, Urine 5 0 - 60 /LPF LAB URINALYSIS - AUTOMATED METHOD 06/09/2025 2:08 AM [facility] Bacteria, Urine Negative Negative /HPF LAB URINALYSIS - AUTOMATED METHOD 06/09/2025 2:08 AM [facility] Hyaline Casts, Urine 0 0 - 3 /LPF LAB URINALYSIS - AUTOMATED METHOD 06/09/2025 2:08 AM [facility] Urine Urine specimen obtained by clean catch procedure / Unknown Non-blood Collection / Unknown 06/09/2025 12:53 AM EST 06/09/2025 1:00 AM EST us Lori CARR LAB URINE ORDERABLES Fin al Result [facility] [address] [place] [address], [place] [phone] * (ABNORMAL) CBC auto differential (06/09/2025 12:47 AM EST) [facility] WBC 8.0 4.8 - 10.8 K/mcL LAB HEMETOLOGY METHOD 06/09/2025 1:11 AM [facility] RBC 4.20 3.80 - 4.80 M/mcL LAB HEMETOLOGY METHOD 06/09/2025 1:11 AM [facility] Hemoglobin 12.3 11.5 - 16.0 g/dL LAB HEMETOLOGY METHOD 06/09/2025 1:11 AM [facility] Hematocrit 36.7 35.0 - 47.0 % LAB HEMETOLOGY METHOD 06/09/2025 1:11 AM [facility] MCV 86.8 79.0 - 98.0 FL LAB HEMETOLOGY METHOD 06/09/2025 1:11 AM [facility] MCH 29.1 27.0 - 32.0 pcg LAB HEMETOLOGY METHOD 06/09/2025 1:11 AM [facility] MCHC 33.5 32.0 - 37.0 g/dL LAB HEMETOLOGY METHOD 06/09/2025 1:11 AM [facility] RDW 13.2 11.0 - 15.0 % LAB HEMETOLOGY METHOD 06/09/2025 1:11 AM [facility] Platelets 275 130 - 400 K/mcL LAB HEMETOLOGY METHOD 06/09/2025 1:11 AM [facility] MPV 9.9 7.0 - 11.0 FL LAB HEMETOLOGY METHOD 06/09/2025 1:11 AM [facility] NRBC 0.0 <1.0 % LAB HEMETOLOGY METHOD 06/09/2025 1:11 AM [facility] NRBC Absolute 0.00 <0.10 K/mcL LAB HEMETOLOGY METHOD 06/09/2025 1:11 AM [facility] Neutrophils Relative 72.3 % LAB HEMETOLOGY METHOD 06/09/2025 1:11 AM [facility] Lymphocytes Relative 19.0 % LAB HEMETOLOGY METHOD 06/09/2025 1:11 AM [facility] Monocytes Relative 7.1 % LAB HEMETOLOGY METHOD 06/09/2025 1:11 AM [facility] Eosinophils Relative 0.9 % LAB HEMETOLOGY METHOD 06/09/2025 1:11 AM [facility] Basophils Relative 0.2 % LAB HEMETOLOGY METHOD 06/09/2025 1:11 AM [facility] Immature Granulocytes Relative 0.5 % LAB HEMETOLOGY METHOD 06/09/2025 1:11 AM [facility] Neutrophils Absolute 5.81 1.50 - 7.00 K/mcL LAB HEMETOLOGY METHOD 06/09/2025 1:11 AM [facility] Lymphocytes Absolute 1.53 1.00 - 5.00 K/mcL LAB HEMETOLOGY METHOD 06/09/2025 1:11 AM [facility] Monocytes Absolute 0.57 0.20 - 1.00 K/mcL LAB HEMETOLOGY METHOD 06/09/2025 1:11 AM [facility] Eosinophils Absolute 0.07 0.00 - 0.50 K/mcL LAB HEMETOLOGY METHOD 06/09/2025 1:11 AM [facility] Basophils Absolute 0.02 0.00 - 0.20 K/mcL LAB HEMETOLOGY METHOD 06/09/2025 1:11 AM [facility] Immature Granulocytes Absolute 0.04(H) 0.00 - 0.03 K/mcL LAB HEMETOLOGY METHOD 06/09/2025 1:11 AM [facility] Blood Venous blood specimen / Unknown Venipuncture / Unknown 06/09/2025 12:47 AM EST 06/09/2025 12:56 AM EST Lori CARR LAB BLOOD ORDERABLES Fin al Result Performing Organization Address [facility] Co de Phone Number [facility] [address] [place] [address], [place] [phone] * Lactate, with Reflex (06/09/2025 12:47 AM EST) LACTIC ACID 1.8 0.4 - 2.0 mmol/L LAB CHEMISTRY METHOD 06/09/2025 1:[address] [facility] Blood Venous blood specimen / Unknown Venipuncture / Unknown 06/09/2025 12:47 AM EST 06/09/2025 12:57 AM EST Lori CARR LAB BLOOD ORDERABLES Fin al Result Performing Organization Address [facility] de Phone Number [facility] [address] [place] [address], [place] [phone] * (ABNORMAL) Lipase (06/09/2025 12:47 AM EST) Pathologist [facility] Lipase 78(H) 13 - 75 unit/L LAB CHEMISTRY METHOD 06/09/2025 1:[address] [facility] Blood Venous blood specimen / Unknown Venipuncture / Unknown 06/09/2025 12:47 AM EST 06/09/2025 12:56 AM EST Lori CARR LAB BLOOD ORDERABLES Fin al Result Performing Organization Address City/[facility]/ZIP Co de Phone Number [facility] [address] [place] [address], [place] [phone] * Magnesium (06/09/2025 12:47 AM EST) Magnesium 2.0 1.9 - 2.6 mg/dL LAB CHEMISTRY METHOD 06/09/2025 1:32 AM [facility] Blood Venous blood specimen / Unknown Venipuncture / Unknown 06/09/2025 12:47 AM EST 06/09/2025 12:56 AM EST Lori CARR LAB BLOOD ORDERABLES Fin al Result [facility] [address] [place] [address], * (ABNORMAL) Comprehensive Metabolic Panel (CMP) (06/09/2025 12:47 AM EST) Pathologist [facility] Sodium 134 133 - 145 mmol/L LAB CHEMISTRY METHOD 06/09/2025 1:36 AM [facility] Potassium 4.3 3.5 - 5.5 mmol/L LAB CHEMISTRY METHOD 06/09/2025 1:36 AM [facility] Chloride 100 96 - 110 mmol/L LAB CHEMISTRY METHOD 06/09/2025 1:36 AM [facility] CO2 30 21 - 32 mmol/L LAB CHEMISTRY METHOD 06/09/2025 1:36 AM [facility] Anion Gap 4 3 - 11 LAB CHEMISTRY METHOD 06/09/2025 1:36 AM [facility] Glucose 360(H) 70 - 100 mg/dL LAB CHEMISTRY METHOD 06/09/2025 1:36 AM [facility] BUN 9 5 - 25 mg/dL LAB CHEMISTRY METHOD 06/09/2025 1:36 AM [facility] Creatinine 0.83 0.50 - 1.10 mg/dL LAB CHEMISTRY METHOD 06/09/2025 1:36 AM [facility] eGFR 87 >=60 mL/min/1. 73m2 LAB CHEMISTRY METHOD 06/09/2025 1:36 AM [facility] Comment:Calculation based on the Chronic Kidney Disease Epidemiology Collaboration (CKD-EPI) equation refit without adjustment for race. BUN/Creatinine Ratio 10.8 LAB CHEMISTRY METHOD 06/09/2025 1:36 AM [facility] Calcium 9.4 8.5 - 10.5 mg/dL LAB CHEMISTRY METHOD 06/09/2025 1:36 AM [facility] AST (SGOT) 30 10 - 42 unit/L LAB CHEMISTRY METHOD 06/09/2025 1:36 AM [facility] ALT (SGPT) 82(H) 10 - 60 unit/L LAB CHEMISTRY METHOD 06/09/2025 1:36 AM [facility] Alkaline Phosphatase 113 42 - 121 unit/L LAB CHEMISTRY METHOD 06/09/2025 1:36 AM [facility] Total Protein 7.1 6.0 - 8.0 g/dL LAB CHEMISTRY METHOD 06/09/2025 1:36 AM [facility] Albumin 3.5 3.2 - 5.0 g/dL LAB CHEMISTRY METHOD 06/09/2025 1:36 AM [facility] Total Bilirubin 0.2 0.0 - 1.4 mg/dL LAB CHEMISTRY METHOD 06/09/2025 1:36 AM [facility] Blood Venous blood specimen / Unknown Venipuncture / Unknown 06/09/2025 12:47 AM EST 06/09/2025 12:56 AM EST us Lori CARR LAB BLOOD ORDERABLES Fin al Result [facility] [address] [place] [address], * (ABNORMAL) POCT Glucose, blood (06/08/2025 11:25 PM EST) Glucose POCT 392(H) 70 - 100 mg/dL 06/08/2025 11:[address] [facility] Blood Capillary blood specimen / Unknown 06/08/2025 11:25 PM EST 06/08/2025 11:26 PM EST us Generic Provider Poct LAB POINT OF CARE TEST DOCKED DEVICE UNSOLICITED RESULTS Final Result [facility] [address] [place] [address], documented in this encounter Visit Diagnoses Diagnosis Atherosclerotic peripheral vascular disease with intermittent claudication (CMS/HCC V24)- Primary Nausea Nausea alone Constipation, unspecified constipation type documented in this encounter Administered Medications Inactive Administered Medications - up to 3 most recent administrations Medication Order MAR Action Action Date Dose Rate Site HYDROmorphone (DILAUDID) injection 1 mg 1 mg, intravenous, Once, On 06/09/25 at 0134, For 1 dose Given 06/09/2025 1:42 AM EST 1 mg iopamidoL (ISOVUE-370) 370 mg iodine /mL (76 %) injection 90 mL 90 mL, intravenous, Once in imaging, Starting on 06/09/25 at 0203, For 1 dose Given 06/09/2025 2:03 AM EST 90 mL loperamide (IMODIUM) capsule 4 mg 4 mg, oral, Once, On Wed06/08/25 at 2325, For 1 dose Given 06/09/2025 12:39 AM EST 4 mg sodium chloride 0.9 % bolus 1,000 mL 1,000 mL, intravenous, at 1,000 mL/hr, Administer over 1 Hours, Once, On 06/09/25 at 0129, For 1 dose New Bag 06/09/2025 1:41 AM EST 1,000 mL 100 0 mL/hr sodium chloride 0.9 % flush 10 mL 10 mL, intravenous, Once, On 06/09/25 at 0204, For 1 dose Given 06/09/2025 2:03 AM EST 10 mL documented in this encounter Active and Recently Administered Medications Times are shown in EST. Scheduled Medication Order 06/07/2025 06/08/2025 06/09/2025 HYDROmorphone (DILAUDID) injection 1 mg (COMPLETED) 1 mg, intravenous, Once, On 06/09/25 at 0134, For 1 dose 0142 (Given - Provid er: Emperatriz Mccauley RN) iopamidoL (ISOVUE-370) 370 mg iodine /mL (76 %) injection 90 mL (COMPLETED) 90 mL, intravenous, Once in imaging, Starting on 06/09/25 at 0203, For 1 dose 0203 (Given - Provid er: Neelima Taylor) loperamide (IMODIUM) capsule 4 mg (COMPLETED) 4 mg, oral, Once, On 06/08/25 at 2325, For 1 dose 0039 (Given - Provid er: Emperatriz Mccauley RN) polyethylene glycol (MIRALAX) packet 17 g 17 g, oral, Once, On 06/09/25 at 0431, For 1 dose 0437 (Not Given - Pr ovider: Colin Yu RN - Reason: Other - Comment: Patient discharged) sodium chloride 0.9 % bolus 1,000 mL (COMPLETED) 1,000 mL, intravenous, at 1,000 mL/hr, Administer over 1 Hours, Once, On 06/09/25 at 0129, For 1 dose 0141 (New Bag - Prov ider: Emperatriz Mccauley RN)[id number] (Stopped - Provider: Emperatriz Mccauley RN) sodium chloride 0.9 % flush 10 mL (COMPLETED) 10 mL, intravenous, Once, On 06/09/25 at 0204, For 1 dose 0203 (Given - Provid er: Neelima Taylor) documented in this encounter Orders Medications Ordered That Niraj ht Not Have Been Administered Count Last Ordered Date First Ordered Date polyethylene glycol (MIRALAX) packet 17 g 1 06/09/2025 IV Count Last Ordered Date First Orde red Date INSERT PERIPHERAL IV 1 06/09/2025 documented in this encounter Care Teams Patient Access Representative Relationship 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
--- NOTE | 2025-06-11 15:58 | A.OFFVIS_ITS ---
Intake Visit Reasons: possible pancreatitis Intake Note: Patient is seen in office for ER follow up visit, following for pancreatitis. Pt c/o: per pt has come to the ER up to 3 times, and had 2 leave twice due to the waiting, ended up going to [facility] had imaging done and was told all areas are inflammed- was inpatient, increase abdominal pain, blood in the urine, was send 2 days ago Salesperson Sheet Music Required: Yes Salesperson Sheet Music Language: Heel Lining Paster Services: Salesperson Sheet Music Present Salesperson Sheet Music Name: Romelia DODSON Information Interpreted: non-clinical & clinical Import/Export Analyst: Import/Export Analyst Present Accompanied by: Family/Other Allergies ciprofloxacin (From CIPRO) Allergy (Intermediate, Verified 06/11/25 16:01) RASH Sulfa (Sulfonamide Antibiotics) (SULFA (SULFONAMIDE ANTIBIOTICS)) Allergy (Intermediate, Verified 06/11/25 16:01) RASH sulfamethoxazole (From SEPTRA) Allergy (Unknown, Verified 06/11/25 16:01) SWELLING trimethoprim (From SEPTRA) Allergy (Unknown, Verified 06/11/25 16:01) SWELLING SEAFOOD Allergy (Severe, Uncoded 06/11/25 16:01) ANAPHYLAXIS HPI HPI possible pancreatitis: Details: [age] year old female referred for possible ?pancreatitis? According to the patient's son, she had been to multiple hospitals for the past month. She says she was initially seen in [place] but she left the ER and went to [facility] about 2 weeks ago. She says at that time, she was having upper abdominal pain. She was told that may have had pancreatitis as her lipase was mildly elevated She was discharged after 4 days but she says she continues to have the same pain that she has had. She describes like upper abdominal pain. She says she occasionally has some nausea and vomiting. She is really uncertain as to what the etiology. [facility] Medical History (Updated 05/29/25 @ 00:01 by Colton Farooq) History of seizures Type 2 diabetes mellitus Asthma Hepatitis A Social History Household Members: Family Housing: Apartment Do you presently have visiting nurse or other home services: No (working on getting a carrier driver) Alcohol intake: former Patient Tobacco Use Status: Tobacco use Unknown Tobacco use type: Cigarette Cigarettes Per Day: 3 Years Smoked: 20 e-Cigarette/Vaping Use: Currently Using Second Hand Smoke Exposure: No service: No Review of Systems Const Denies chills and Denies fever(s) Card Denies chest pain, Denies dyspnea and Denies dyspnea on exertion Resp Denies cough, Denies dyspnea and Denies dyspnea on exertion GI Denies hematochezia and Denies change in bowel habits Denies hematuria Musc Denies back pain and Denies limited range of motion Neuro Denies focal weakness and Denies convulsions Psych Denies depression and Denies mood swings Physical Exam Const General: comfortable and no acute distress Orientation/consciousness: patient oriented x3 Neck Neck: Yes no lymphadenopathy Resp Auscultation: clear to auscultation bilaterally Cardio Rhythm: regular rhythm GI Other: Some diffuse abdominal tenderness Palpation (GI): Soft to palpation, not firm and no guarding Neuro General: patient oriented x3 Assessment & Plan Assessment & Plan (1) Abdominal pain: Code(s): R10.9 - Unspecified abdominal pain Category: Medical Qualifiers: Abdominal location: upper abdomen, unspecified Qualified Code(s): R10.10 - Upper abdominal pain, unspecified Plan: She apparently has had this abdominal pain mostly in the upper part of the abdomen for a month now. She had been to [facility] 2 weeks ago and she was discharged after 4 days I am really uncertain as to what exactly is the etiology. Her care seems to have been disjointed as she has been going through different institutions I am told them that I am going to review her images from [facility] as well as her records. I will see her again next week to discuss what maybe the next step in her care. Coding Level of Care Code New Pt Level 3 (46358) Diagnoses Abdominal pain R10.10 Abdominal location: upper abdomen, unspecified
--- OUTSIDE RECORDS SUMMARY | 2025-06-11 17:47 | XMS_ITS | Clinical Summary ---
Author Organization [facility] Address [address] [place] [address] Phone Care Team Providers Care Ad Operations Coordinator Name Role Phone Physician, Pcp Unknown Primary Care Provider Judy vailable Allergies Active Allergy Reactions Criticality Noted Date Comments Sulfamethoxazole-Trimethoprim Swelling 2024 Shellfish Derived Swelling 05/21/2025 Sulfa (Sulfonamide Antibiotics) Swelling 05/03 Medications clonazePAM (KlonoPIN) 0.5 mg tablet Take 1 tablet (0.5 mg total) by mouth 2 (two) times a day if needed for anxiety. 04/25/20 25 Active diclofenac (VOLTAREN) 75 mg EC tablet Take 1 tablet (75 mg total) by mouth 2 (two) times a day if needed (Foot pain). 04/26/20 25 Active doxepin (SINEquan) 100 mg capsule Take 1 capsule (100 mg total) by mouth at bedtime. 05/08/20 25 Active fluticasone propionate (FLONASE) 50 mcg/actuation nasal spray Administer 1 spray into each nostril 1 (one) time each day. 04/08/20 25 Active Lantus Solostar U-100 Insulin 100 unit/mL (3 mL) injection pen Inject 80 Units under the skin at bedtime. Active insulin lispro (HumaLOG KwikPen) 100 unit/mL injection pen Inject 8-18 Units under the skin 3 (three) times a day before meals. 05/09/20 25 Active lamoTRIgine (LaMICtal) 100 mg tablet Take 1 tablet (100 mg total) by mouth at bedtime. 05/08/20 25 Active lamoTRIgine (LaMICtal) 25 mg tablet Take 2 tablets (50 mg total) by mouth at bedtime. Active montelukast (SINGULAIR) 10 mg tablet Take 1 tablet (10 mg total) by mouth at bedtime. 05/12/20 Active pantoprazole (PROTONIX) 40 mg EC tablet Take 1 tablet (40 mg total) by mouth 2 (two) times a day before meals. 02/22/20 Active pregabalin (LYRICA) 150 mg capsule Take 1 capsule (150 mg total) by mouth. FOREST 1 CAPSULE BY MOUTH IN THE MORNING AND 2 CAPSULES BY MOUTH AT BEDTIME 05/12/20 Active amitriptyline (ELAVIL) 25 mg tablet Take 2 tablets (50 mg total) by mouth at bedtime as needed (insomnia). Active aspirin 81 mg EC tablet Take 1 tablet (81 mg total) by mouth 1 (one) time each day. Active tamsulosin (FLOMAX) 0.4 mg 24 hr capsule Take 1 capsule (0.4 mg total) by mouth 1 (one) time each day. Capsules should be taken 30 minutes following the same meal each day. Active docusate sodium (COLACE) 100 mg capsule Take 1 capsule (100 mg total) by mouth every 12 (twelve) hours. 60 capsule 06/09/20 Active polyethylene glycol (MIRALAX) 17 gram packet Take 17 g by mouth 1 (one) time each day for 6 days. 102 g 06/09/20 Active ondansetron (ZOFRAN) 4 mg tablet Take 1 tablet (4 mg total) by mouth every 6 (six) hours for 3 days. 12 tablet 06/09/20 Active traMADoL (ULTRAM) 50 mg tablet Take 1 tablet (50 mg total) by mouth 2 (two) times a day if needed for moderate pain. 05/12/20 025 Discontinu ed(Stop Taking at Discharge) lactulose (CHRONULAC) solution Take 30 mL (20 g total) by mouth 1 (one) time each day for 10 days. 300 mL 05/26/20 025 ondansetron ODT (ZOFRAN-ODT) 4 mg disintegrating tablet Take 1 tablet (4 mg total) by mouth every 8 (eight) hours if needed for vomiting or nausea for up to 7 days. 20 tablet 05/25/20 25 025 oxyCODONE (ROXICODONE) 5 mg immediate release tablet Take 1 tablet (5 mg total) by mouth every 6 (six) hours if needed for severe pain for up to 3 days. Max Daily Amount: 20 mg 12 each 05/25/20 25 025 HYDROcodone-acetam inophen (NORCO) 5-325 mg per tablet Take 1 tablet by mouth every 6 (six) hours if needed for severe pain for up to 3 days. Max Daily Amount: 4 tablets 12 tablet 06/06/20 25 025 Active Problems Problem Noted Date Diagnosed Date Acute pancreatitis 05/22/2025 Encounters Date Type Department Care Team Description 06/08/2025 11:44 PM EST - 06/09/2025 4:38 AM EST Emergency [facility] Emergency [address] [place] [address] Atherosclerotic peripheral vascular disease with intermittent claudication (CMS/[facility] V24) (Primary Dx); Nausea; Constipation, unspecified constipation type Discharge Disposition: Home or Self Care 06/06/2025 4:32 PM EST - 06/06/2025 9:33 PM EST Emergency [facility] Emergency [address] [place] [id number] Rafael Caban MD Ziebro, John, MD Epigastric pain (Primary Dx); Hyperglycemia Discharge Disposition: Home or Self Care 05/21/2025 7:31 PM EDT - 05/25/2025 11:08 AM EDT Hospital Encounter [facility] Medical Surgical Unit [address] [place] [address] Андрей Vázquez MD Jones, Christopher, MD Bukalo, Nermina, MD Mohani, Priya, MD Acute pancreatitis, unspecified complication status, unspecified pancreatitis type (Primary Dx) Discharge Disposition: Home or Self Care from Last 3 Months Surgical History Surgery Date Site/Laterality Comments HYSTERECTOMY 08/02/2006 - 08/01/2007 Social History Tobacco Use Types Packs/Day Years Used Date Smoking Tobacco: Every Day Cigarettes Smokeless Tobacco: Never Tobacco Cessation:Ready to Q uit: Not Asked; Counseling Given: Not Answered Alcohol Use Standard Drinks/Week Comments Never 0 [...] care for your loved ones. For example, children's ministry director or elderly care for an older [...] on file Sexual Orientation Not on file Obstetrics History Last Filed Vital Signs Vital Sign Reading [...] Mass Index 26.63 06/08/2025 11:18 PM EST Plan of Treatment Health Maintenance Due Date Last Done Comments Breast Cancer Screening 1976 Colorectal Cancer Screening: Colonoscopy 1976 Diabetes: Annual Foot Exam 1986 Diabetes: Annual Retina Eye Exam 1986 Hepatitis A Vaccines (1 of 2 - Risk 2-dose series) 1995 Cervical Cancer Screening: Pap Smear 1997 Hepatitis B Vaccines (3 of 3 - 19+ 3-dose series) 03/10/2005 10/08/2004, 09/10/2004 Pneumococcal Vaccine: Pediatrics (0 to 5 Years) and At-Risk Patients (6 to 49 Years) (2 of 2 - PCV) 11/26/2019 11/25/2018 Depression Screening 08/02/2024 Diabetes: Annual Urine Albumin-Creatinine Ratio (uACR) 05/21/2025 HIV Screening 05/21/2025 Hepatitis C Screening 05/21/2025 Diabetes: Blood Sugar Control Test (HGBA1C) 11/19/2025 05/21/2025 Social Influencers of Health Screening 05/22/2026 05/22/2025 Diabetes: Annual GFR (Glomerular Filtration Rate) 06/09/2026 06/09/2025, 06/06/2025, 05/25/2025, Additional history exists Cholesterol Screening (Lipid Panel) 05/21/2030 05/21/2025, 05/21/2025 DTaP,Tdap,and Td Vaccines (4 - Td or Tdap) 08/10/2032 08/10/2022, 11/25/2018, 06/11/2004 RSV Immunization Adult Patients (1 - 1-dose 75+ series) 2051 COVID-19 Vaccine Completed 07/07/2024, , 09/24/2021, Additional history exists Influenza Vaccine Completed 05/11/2025, , 07/07/2024, Additional history exists HIB Vaccines Aged Out No longer eligi [...] to complete this topic RSV Immunization Patients Under 20 months Aged Out No longer eligible based on patient's age to complete this topic Varicella Vaccines Aged Out No longer eligible based on patient's age to complete this topic Procedures Procedure Name Priority Date/Time Associated Diagnosis Comments CT ABDOMEN PELVIS W CONTRAST STAT 06/09/2025 2:09 AM EST POC , URINE DIAGNOSTIC STAT 06/09/2025 1:29 AM EST URINALYSIS WITH REFLEX MICROSCOPIC STAT 06/09/2025 12:53 AM EST URINALYSIS WITH REFLEX MICROSCOPIC STAT 06/09/2025 12:53 AM EST CBC WITH AUTO DIFFERENTIAL STAT 06/09/2025 12:47 AM EST LACTATE, WITH REFLEX STAT 06/09/2025 12:47 AM EST LIPASE STAT 06/09/2025 12:47 AM EST MAGNESIUM STAT 06/09/2025 12:47 AM EST CBC AND DIFFERENTIAL STAT 06/09/2025 12:47 AM EST COMPREHENSIVE METABOLIC PANEL STAT 06/09/2025 12:47 AM EST POCT GLUCOSE BLOOD Routine 06/08/2025 11 :25 PM EST POCT GLUCOSE BLOOD Routine 06/06/2025 8: [address] ABDOMEN PELVIS W CONTRAST STAT 06/06/2025 7:25 PM EST POCT GLUCOSE BLOOD Routine 06/06/2025 7: 00 PM EST URINALYSIS WITH REFLEX MICROSCOPIC STAT 06/06/2025 4:25 PM EST URINALYSIS WITH REFLEX MICROSCOPIC STAT 06/06/2025 4:25 PM EST CBC WITH AUTO DIFFERENTIAL STAT 06/06/2025 3:01 PM EST VENOUS BLOOD GAS STAT 06/06/2025 3:01 PM EST BETA HYDROXYBUTYRATE STAT 06/06/2025 3:01 PM EST OSMOLALITY STAT 06/06/2025 3:01 PM EST MAGNESIUM STAT 06/06/2025 3:01 PM EST LIPASE STAT 06/06/2025 3:01 PM EST COMPREHENSIVE METABOLIC PANEL STAT 06/06/2025 3:01 PM EST CBC AND DIFFERENTIAL STAT 06/06/2025 3:01 PM EST POC GLUCOSE STAT 06/06/2025 2:57 PM EST POCT GLUCOSE BLOOD Routine 06/06/2025 2: 54 PM EST POCT GLUCOSE BLOOD Routine 05/25/2025 8: 15 AM EDT COMPREHENSIVE METABOLIC PANEL Routine 05/25/2025 6:33 AM EDT LAVENDER - EDTA Routine 05/25/2025 6:31 AM EDT EXTRA TUBES Routine 05/25/2025 6:31 AM EDT POCT GLUCOSE BLOOD Routine 05/24/2025 8: 04 PM EDT POCT GLUCOSE BLOOD Routine 05/24/2025 4: 10 PM EDT POCT GLUCOSE BLOOD Routine 05/24/2025 10 :56 AM EDT POCT GLUCOSE BLOOD Routine 05/24/2025 7: 31 AM EDT CBC WITH AUTO DIFFERENTIAL Routine 05/24/2025 6:09 AM EDT CBC AND DIFFERENTIAL Routine 05/24/2025 6:09 AM EDT COMPREHENSIVE METABOLIC PANEL Routine 05/24/2025 6:09 AM EDT LIPASE Routine 05/24/2025 6:09 AM EDT POCT GLUCOSE BLOOD Routine 05/23/2025 7: 34 PM EDT POCT GLUCOSE BLOOD Routine 05/23/2025 4: 21 PM EDT POCT GLUCOSE BLOOD Routine 05/23/2025 11 :50 AM EDT POCT GLUCOSE BLOOD Routine 05/23/2025 8: 04 AM EDT LIPASE Add-On 05/23/2025 5:55 AM EDT HEPATIC FUNCTION PANEL Routine 5:55 AM EDT BASIC METABOLIC PANEL Routine 05/23/2025 5:55 AM EDT COMPLETE BLOOD COUNT Routine 05/23/2025 5:55 AM EDT ETHYL GLUCURONIDE SCREEN WITH REFLEX CONFIRMATION, URINE Routine 05/22/2025 11:18 PM EDT POCT GLUCOSE BLOOD Routine 05/22/2025 8: 21 PM EDT POCT GLUCOSE BLOOD Routine 05/22/2025 4: 16 PM EDT MR ABDOMEN WO CONTRAST MRCP Routine 05/22/2025 1:20 PM EDT POCT GLUCOSE BLOOD Routine 05/22/2025 11 :23 AM EDT POCT GLUCOSE BLOOD Routine 05/22/2025 8: 38 AM EDT CBC WITH AUTO DIFFERENTIAL Routine 05/22/2025 5:21 AM EDT PHOSPHORUS Routine 05/22/2025 5:21 AM EDT CBC AND DIFFERENTIAL Routine 05/22/2025 5:21 AM EDT BASIC METABOLIC PANEL Routine 05/22/2025 5:21 AM EDT US ABDOMEN LIMITED STAT 05/22/2025 1: [address] ABDOMEN PELVIS W CONTRAST STAT 05/22/2025 12:42 AM EDT LACTATE DEHYDROGENASE Add-On 05/21/2025 6:02 PM EDT MAGNESIUM Add-On 05/21/2025 6:02 PM EDT HEMOGLOBIN A1C Add-On 05/21/2025 6:02 PM EDT BETA HYDROXYBUTYRATE Add-On 05/21/2025 6:02 PM EDT OSMOLALITY Add-On 05/21/2025 6:02 PM EDT LIPID PANEL WITH REFLEX TO DIRECT LDL STAT Add-on 05/21/2025 6:02 PM EDT CHOLESTEROL, TOTAL Add-On 05/21/2025 6: 02 PM EDT CBC WITH AUTO DIFFERENTIAL STAT 05/21/2025 6:02 PM EDT LIPASE STAT 05/21/2025 6:02 PM EDT COMPREHENSIVE METABOLIC PANEL STAT 05/21/2025 6:02 PM EDT CBC AND DIFFERENTIAL STAT 05/21/2025 6:02 PM EDT from Last 3 Months Results * CT Abdomen Pelvis w Contrast (06/09/2025 2:09 AM EST) Only the most recent of3 resultswithin the time period is included. Anatomical Region Laterality Modality Body Computed Tomogra [...] Hernandez MD on 06/09/2025 02:58:47 Lori CARR [facility] PROCEDURES Final Result * POC , urine manually resulted (06/09/2025 1:29 AM EST) HCG, Ur POC Negative Negative Urine Urine specimen obtained by clean catch procedure / Unknown 06/09/2025 1:29 AM EST Lori CARR POINT OF CARE TEST ENTER /EDIT ORDERABLES Final Result * (ABNORMAL) Urinalysis with reflex microscopic (06/09/2025 12:53 AM EST) Only the most recent of2 resultswithin the time period is included. Specific [place] Urine 1.038(H) 1.003 - 1.030 LAB URINALYSIS - AUTOMATED METHOD 06/09/2025 2:08 AM [facility] pH, Urine 6.5 5.0 - 8.0 pH LAB URINALYSIS - AUTOMATED METHOD 06/09/2025 2:08 AM [facility] Leukocytes, Urine Negative Negative LAB URINALYSIS - AUTOMATED METHOD 06/09/2025 2:08 AM [facility] Nitrite, Urine Negative Negative LAB URINALYSIS - AUTOMATED METHOD 06/09/2025 2:08 AM [facility] Protein, Urine Negative <=Trace mg/dL LAB URINALYSIS - AUTOMATED METHOD 06/09/2025 2:08 AM [facility] Glucose, Urine >=1000(A) Negative mg/dL LAB URINALYSIS - AUTOMATED METHOD 06/09/2025 2:08 AM [facility] Ketones, Urine Negative Negative mg/dL LAB URINALYSIS - AUTOMATED METHOD 06/09/2025 2:08 AM [facility] Urobilinogen , Urine 0.2 0.2 - 1.0 mg/dL LAB URINALYSIS - AUTOMATED METHOD 06/09/2025 2:08 AM [facility] Bilirubin, Urine Negative Negative LAB URINALYSIS - AUTOMATED METHOD 06/09/2025 2:08 AM [facility] Blood, Urine Small(A) Negative LAB URINALYSIS - AUTOMATED METHOD 06/09/2025 2:08 AM [facility] RBC, Urine 2 0 - 4 /HPF LAB URINALYSIS - AUTOMATED METHOD 06/09/2025 2:08 AM [facility] WBC, Urine 3 0 - 4 /HPF LAB URINALYSIS - AUTOMATED METHOD 06/09/2025 2:08 AM [facility] Squamous Epithelial, Urine 5 0 - 60 /LPF LAB URINALYSIS - AUTOMATED METHOD 06/09/2025 2:08 AM [facility] Bacteria, Urine Negative Negative /HPF LAB URINALYSIS - AUTOMATED METHOD 06/09/2025 2:08 AM [facility] Hyaline Casts, Urine 0 0 - 3 /LPF LAB URINALYSIS - AUTOMATED METHOD 06/09/2025 2:08 AM [facility] Urine Urine specimen obtained by clean catch procedure / Unknown Non-blood Collection / Unknown 06/09/2025 12:53 AM EST 06/09/2025 1:00 AM EST Lori CARR LAB URINE ORDERABLES Fin al Result Performing Organization Address [facility]/ZIP Co de Phone Number [facility] [address] [place] [address], [place] [phone] * Lactate, with Reflex (06/09/2025 12:47 AM EST) LACTIC ACID 1.8 0.4 - 2.0 mmol/L LAB CHEMISTRY METHOD 06/09/2025 1:30 AM EST [facility] Blood Venous blood specimen / Unknown Venipuncture / Unknown 06/09/2025 12:47 AM EST 06/09/2025 12:57 AM EST Lori CARR LAB BLOOD ORDERABLES Fin al Result Performing Organization Address City/[facility]/ZIP Co de Phone Number [facility] [address] [place] [address], [place] [phone] * (ABNORMAL) CBC auto differential (06/09/2025 12:47 AM EST) Only the most recent of5 resultswithin the time period is included. [facility] WBC 8.0 4.8 - 10.8 K/mcL LAB HEMETOLOGY METHOD 06/09/2025 1:11 AM [facility] RBC 4.20 3.80 - 4.80 M/mcL LAB HEMETOLOGY METHOD 06/09/2025 1:11 AM [facility] Hemoglobin 12.3 11.5 - 16.0 g/dL LAB HEMETOLOGY METHOD 06/09/2025 1:11 AM [facility] Hematocrit 36.7 35.0 - 47.0 % LAB HEMETOLOGY METHOD 06/09/2025 1:11 AM [facility] MCV 86.8 79.0 - 98.0 FL LAB HEMETOLOGY METHOD 06/09/2025 1:11 AM [facility] MCH 29.1 27.0 - 32.0 pcg LAB HEMETOLOGY METHOD 06/09/2025 1:11 AM [facility] MCHC 33.5 32.0 - 37.0 g/dL LAB HEMETOLOGY METHOD 06/09/2025 1:11 AM [facility] RDW 13.2 11.0 - 15.0 % LAB HEMETOLOGY METHOD 06/09/2025 1:11 AM [facility] Platelets 275 130 - 400 K/mcL LAB HEMETOLOGY METHOD 06/09/2025 1:11 AM [facility] MPV 9.9 7.0 - 11.0 FL LAB HEMETOLOGY METHOD 06/09/2025 1:11 AM [facility] NRBC 0.0 <1.0 % LAB HEMETOLOGY METHOD 06/09/2025 1:11 AM [facility] NRBC Absolute 0.00 <0.10 K/mcL LAB HEMETOLOGY METHOD 06/09/2025 1:11 AM [facility] Neutrophils Relative 72.3 % LAB HEMETOLOGY METHOD 06/09/2025 1:11 AM [facility] Lymphocytes Relative 19.0 % LAB HEMETOLOGY METHOD 06/09/2025 1:11 AM [facility] Monocytes Relative 7.1 % LAB HEMETOLOGY METHOD 06/09/2025 1:11 AM [facility] Eosinophils Relative 0.9 % LAB HEMETOLOGY METHOD 06/09/2025 1:11 AM [facility] Basophils Relative 0.2 % LAB HEMETOLOGY METHOD 06/09/2025 1:11 AM [facility] Immature Granulocytes Relative 0.5 % LAB HEMETOLOGY METHOD 06/09/2025 1:11 AM [facility] Neutrophils Absolute 5.81 1.50 - 7.00 K/mcL LAB HEMETOLOGY METHOD 06/09/2025 1:11 AM [facility] Lymphocytes Absolute 1.53 1.00 - 5.00 K/mcL LAB HEMETOLOGY METHOD 06/09/2025 1:11 AM [facility] Monocytes Absolute 0.57 0.20 - 1.00 K/mcL LAB HEMETOLOGY METHOD 06/09/2025 1:11 AM [facility] Eosinophils Absolute 0.07 0.00 - 0.50 K/mcL LAB HEMETOLOGY METHOD 06/09/2025 1:11 AM [facility] Basophils Absolute 0.02 0.00 - 0.20 K/mcL LAB HEMETOLOGY METHOD 06/09/2025 1:11 AM [facility] Immature Granulocytes Absolute 0.04(H) 0.00 - 0.03 K/mcL LAB HEMETOLOGY METHOD 06/09/2025 1:11 AM [facility] Blood Venous blood specimen / Unknown Venipuncture / Unknown 06/09/2025 12:47 AM EST 06/09/2025 12:56 AM EST Lori CARR LAB BLOOD ORDERABLES Fin al Result Performing Organization Address City/[facility]/ZIP Co de Phone Number [facility] [address] [place] [address], [place] [phone] * Magnesium (06/09/2025 12:47 AM EST) Only the most recent of3 resultswithin the time period is included. Magnesium 2.0 1.9 - 2.6 mg/dL LAB CHEMISTRY METHOD 06/09/2025 1:32 AM EST [facility] Blood Venous blood specimen / Unknown Venipuncture / Unknown 06/09/2025 12:47 AM EST 06/09/2025 12:56 AM EST Lori CARR LAB BLOOD ORDERABLES Fin al Result Performing Organization Address [facility] de Phone Number [facility] [address] [place] [address], [place] [phone] * (ABNORMAL) Lipase (06/09/2025 12:47 AM EST) Only the most recent of5 resultswithin the time period is included. Lipase 78(H) 13 - 75 unit/L LAB CHEMISTRY METHOD 06/09/2025 1:32 AM EST [facility] Blood Venous blood specimen / Unknown Venipuncture / Unknown 06/09/2025 12:47 AM EST 06/09/2025 12:56 AM EST Lori CARR LAB BLOOD ORDERABLES Fin al Result Performing Organization Address [facility] Co de Phone Number [facility] [address] [place] [address], [place] [phone] * (ABNORMAL) Comprehensive Metabolic Panel (CMP) (06/09/2025 12:47 AM EST) Only the most recent of5 resultswithin the time period is included. Sodium 134 133 - 145 mmol/L LAB CHEMISTRY METHOD 06/09/2025 1:36 AM [facility] Potassium 4.3 3.5 - 5.5 mmol/L LAB CHEMISTRY METHOD 06/09/2025 1:36 AM [facility] Chloride 100 96 - 110 mmol/L LAB CHEMISTRY METHOD 06/09/2025 1:36 AM [facility] CO2 30 21 - 32 mmol/L LAB CHEMISTRY METHOD 06/09/2025 1:36 AM [facility] Anion Gap 4 3 - 11 LAB CHEMISTRY METHOD 06/09/2025 1:36 AM [facility] Glucose 360(H) 70 - 100 mg/dL LAB CHEMISTRY METHOD 06/09/2025 1:36 AM [facility] BUN 9 5 - 25 mg/dL LAB CHEMISTRY METHOD 06/09/2025 1:36 AM [facility] Creatinine 0.83 0.50 - 1.10 mg/dL LAB CHEMISTRY METHOD 06/09/2025 1:36 AM [facility] eGFR 87 >=60 mL/min/1. 73m2 LAB CHEMISTRY METHOD 06/09/2025 1:36 AM [facility] Comment:Calculation based on the Chronic Kidney Disease Epidemiology Collaboration (CKD-EPI) equation refit without adjustment for race. BUN/Creatinine Ratio 10.8 LAB CHEMISTRY METHOD 06/09/2025 1:36 AM [facility] Calcium 9.4 8.5 - 10.5 mg/dL LAB CHEMISTRY METHOD 06/09/2025 1:36 AM [facility] AST (SGOT) 30 10 - 42 unit/L LAB CHEMISTRY METHOD 06/09/2025 1:36 AM [facility] ALT (SGPT) 82(H) 10 - 60 unit/L LAB CHEMISTRY METHOD 06/09/2025 1:36 AM [facility] Alkaline Phosphatase 113 42 - 121 unit/L LAB CHEMISTRY METHOD 06/09/2025 1:36 AM [facility] Total Protein 7.1 6.0 - 8.0 g/dL LAB CHEMISTRY METHOD 06/09/2025 1:36 AM [facility] Albumin 3.5 3.2 - 5.0 g/dL LAB CHEMISTRY METHOD 06/09/2025 1:36 AM [facility] Total Bilirubin 0.2 0.0 - 1.4 mg/dL LAB CHEMISTRY METHOD 06/09/2025 1:36 AM [facility] Blood Venous blood specimen / Unknown Venipuncture / Unknown 06/09/2025 12:47 AM EST 06/09/2025 12:56 AM EST Lori CARR LAB BLOOD ORDERABLES Fin al Result [facility] [address] [place] [address], [place] [phone] * (ABNORMAL) POCT Glucose, blood (06/08/2025 11:25 PM EST) Only the most recent of17 resultswithin the time period is included. Glucose POCT 392(H) 70 - 100 mg/dL 06/08/2025 11:25 PM EST [facility] Blood Capillary blood specimen / Unknown 06/08/2025 11:25 PM EST 06/08/2025 11:26 PM EST Generic Provider Poct LAB POINT OF CARE TEST DOCKED DEVICE UNSOLICITED RESULTS Final Result [facility] [address] [place] [address], [place] [phone] * Beta hydroxybutyrate (06/06/2025 3:01 PM EST) Only the most recent of2 resultswithin the time period is included. Beta-Hydroxybu tyrate 0.9 0.2 - 2.8 mg/dL LAB CHEMISTRY METHOD 06/06/2025 4:05 PM EST [facility] Blood Venous blood specimen / Unknown Venipuncture / Unknown 06/06/2025 3:01 PM EST 06/06/2025 3:06 PM EST Андрей Vázquez MD LAB BLOOD ORDERABLES Final Result Performing Organization Address [facility] Co de Phone Number [facility] [address] [place] [address], [place] [phone] * (ABNORMAL) Osmolality (06/06/2025 3:01 PM EST) Only the most recent of2 resultswithin the time period is included. [facility] Osmolality Gemma 315(H) 280 - 300 mOsm/kg LAB CHEMISTRY METHOD 06/06/2025 3:47 PM EST [facility] Blood Venous blood specimen / Unknown Venipuncture / Unknown 06/06/2025 3:01 PM EST 06/06/2025 3:06 PM EST Андрей Vázuqez MD LAB BLOOD ORDERABLES Final Result Performing Organization Address City/[facility]/ZIP Co de Phone Number [facility] [address] [place] [address], [place] [phone] * (ABNORMAL) Venous blood gas (06/06/2025 3:01 PM EST) Pathologist [facility] pH, [place] 7.39 7.32 - 7.42 pH 06/06/2025 3:15 PM EST [facility] pCO2, [place] 50 41 - 51 mmHg 06/06/2025 3:15 PM EST [facility] pO2, [place] 17(L) 25 - 40 mmHg 06/06/2025 3:15 PM EST [facility] HCO3, Venous 26.1(H) 22.0 - 26.0 mmol/L 06/06/2025 3:15 PM EST [facility] O2 Sat, [place] <30.0 % 06/06/2025 3:15 PM EST [facility] Base Excess, [place] 4.2(H) -2.0 - 2.0 mmol/L 06/06/2025 3:15 PM EST [facility] Blood Venous blood specimen / Unknown Venipuncture / Unknown 06/06/2025 3:01 PM EST 06/06/2025 3:05 PM EST Андрей Vázquez MD LAB BLOOD ORDERABLES Final Result Performing Organization Address [facility]/ZIP Co de Phone Number [facility] [address] [place] [address], [place] [phone] * (ABNORMAL) POC glucose manually resulted (06/06/2025 2:57 PM EST) Blood Capillary blood specimen / Unknown 06/06/2025 2:57 PM EST Андрей Vázquez MD POINT OF CARE TEST ENTER/ED IT ORDERABLES Final Result * Lavender tube (05/25/2025 6:31 AM EDT) Extra Tube Hold for add-ons. 05/25/2025 10:01 AM EDT [facility] Comment:Auto resulted. Blood Venous blood specimen / Unknown 05/25/2025 6:31 AM EDT 05/25/2025 8:09 AM EDT Nery Tejada MD LAB BLOOD ORDERABLES Final Resul t Performing Organization Address City/[place] Health/ZIP Co de Phone Number [facility] [address] [place] [address], [place] [phone] * Complete blood count (05/23/2025 5:55 AM EDT) [facility] WBC 7.3 4.8 - 10.8 K/mcL LAB HEMETOLOGY METHOD 05/23/2025 6:46 AM EDT [facility] RBC 4.20 3.80 - 4.80 M/mcL LAB HEMETOLOGY METHOD 05/23/2025 6:46 AM EDT [facility] Hemoglobin 12.0 11.5 - 16.0 g/dL LAB HEMETOLOGY METHOD 05/23/2025 6:46 AM EDT [facility] Hematocrit 36.3 35.0 - 47.0 % LAB [facility]23[facility]25 6[facility] MCV 87.3 79.0 - 98.0 FL LAB HEMETOLOGY METHOD 05/23/2025 6:46 AM EDT [facility] MCH 28.8 27.0 - 32.0 pcg LAB HEMETOLOGY METHOD 05/23/2025 6:46 AM [facility] MCHC 33.1 32.0 - 37.0 g/dL LAB HEMETOLOGY METHOD 05/23/2025 6:46 AM [facility] RDW 13.6 11.0 - 15.0 % LAB HEMETOLOGY METHOD 05/23/2025 6:46 AM EDT [facility] Platelets 317 130 - 400 K/mcL LAB HEMETOLOGY METHOD 05/23/2025 6:46 AM EDT [facility] MPV 9.8 7.0 - 11.0 FL LAB HEMETOLOGY METHOD 05/23/2025 6:46 AM EDT [facility] NRBC 0.0 <1.0 % LAB HEM[facility]OLOGY [facility] 05/23[facility]2025 6[facility] NRBC Absolute 0.00 <0.10 K/mcL LAB HEMETOLOGY METHOD 05/23/2025 6:46 AM [facility] Blood Venous blood specimen / Unknown Venipuncture / Unknown 05/23/2025 5:55 AM EDT 05/23/2025 6:24 AM EDT us Makeda CARR LAB BLOOD ORDERABLES Final Resul t [facility] [address] [place] [address], [place] [phone] * (ABNORMAL) Hepatic function panel (05/23/2025 5:55 AM EDT) Total Protein 6.4 6.0 - 8.0 g/dL LAB CHEMISTRY METHOD 05/23/2025 9:59 AM [facility] Albumin 2.9(L) 3.2 - 5.0 g/dL LAB CHEMISTRY METHOD 05/23/2025 9:59 AM [facility] Total Bilirubin 0.4 0.0 - 1.4 mg/dL LAB CHEMISTRY METHOD 05/23/2025 9:59 AM [facility] Bilirubin, Direct 0.1 0.0 - 0.3 mg/dL LAB CHEMISTRY METHOD 05/23/2025 9:59 AM [facility] Bilirubin, Indirect 0.3 0.0 - 1.1 mg/dL LAB CHEMISTRY METHOD 05/23/2025 9:59 AM [facility] ALT (SGPT) 65(H) 10 - 60 unit/L LAB CHEMISTRY METHOD 05/23/2025 9:59 AM [facility] AST (SGOT) 48(H) 10 - 42 unit/L LAB CHEMISTRY METHOD 05/23/2025 9:59 AM [facility] Alkaline Phosphatase 107 42 - 121 unit/L LAB CHEMISTRY METHOD 05/23/2025 9:59 AM [facility] Blood Venous blood specimen / Unknown Venipuncture / Unknown 05/23/2025 5:55 AM EDT 05/23/2025 6:23 AM EDT us Makeda ACRR LAB BLOOD ORDERABLES Final Resul t [facility] [address] [place] [address], * (ABNORMAL) Basic metabolic panel (05/23/2025 5:55 AM EDT) Only the most recent of2 resultswithin the time period is included. Sodium 139 133 - 145 mmol/L LAB CHEMISTRY METHOD 05/23/2025 9:57 AM [facility] Potassium 4.0 3.5 - 5.5 mmol/L LAB CHEMISTRY METHOD 05/23/2025 9:57 AM [facility] Chloride 105 96 - 110 mmol/L LAB CHEMISTRY METHOD 05/23/2025 9:57 AM [facility] CO2 29 21 - 32 mmol/L LAB CHEMISTRY METHOD 05/23/2025 9:57 AM [facility] Anion Gap 5 3 - 11 LAB CHEMISTRY METHOD 05/23/2025 9:57 AM [facility] Glucose 148(H) 70 - 100 mg/dL LAB CHEMISTRY METHOD 05/23/2025 9:57 AM [facility] BUN 7 5 - 25 mg/dL LAB CHEMISTRY METHOD 05/23/2025 9:57 AM [facility] Creatinine 0.62 0.50 - 1.10 mg/dL LAB CHEMISTRY METHOD 05/23/2025 9:57 AM [facility] eGFR 109 >=60 mL/min/1. 73m2 LAB CHEMISTRY METHOD 05/23/2025 9:57 AM EDT [facility] Comment:Calculation based on the Chronic Kidney Disease Epidemiology Collaboration (CKD-EPI) equation refit without adjustment for race. BUN/Creatinine Ratio 11.3 LAB CHEMISTRY METHOD 05/23/2025 9:57 AM EDT [facility] Calcium 9.1 8.5 - 10.5 mg/dL LAB CHEMISTRY METHOD 05/23/2025 9:57 AM EDT [facility] Blood Venous blood specimen / Unknown Venipuncture / Unknown 05/23/2025 5:55 AM EDT 05/23/2025 6:23 AM EDT us Makeda CARR LAB BLOOD ORDERABLES Final Resul t [facility] [address] [place] [address], [place] [phone] * Ethyl glucuronide urine with reflex confirmation (05/22/2025 11:18 PM EDT) Ethyl Sulfate Urine TNP ng/mL 05/25 9:44 AM EDT [facility] Ethyl Glucuronide Negative ng/mL 9:44 AM EDT [facility] Comment: Decision Limit Drug Analyzed Screen Confirmation Units -------- ----- Ethyl Glucuronide 500 500 ng/mL Ethyl Sulfate N/A 200 ng/mL Consumption of 30 to 33 fl. oz. of beer: (4.2 percent w/v) can result in urinary ethyl glucuronide concentrations of 22,000 to 67,000 ng/mL at 3 hours. Ethyl glucuronide can be routinely quantified in urine for about 20 hours after a single drink of an ethanol containing beverage (up to 80 hours after heavy ethanol consumption). Both ethyl glucuronide (ETG) and ethyl sulfate (ETS) are metabolites of ethanol. Detection of ETS confirms that the presence of ETG is not a result of in vitro fermentation of sugars. It is known that bacterial fermentation would generate ETG in vitro, but not ETS. Under normal situation, detection of both metabolites concurrently after alcohol consumption is likely. However, due to the genetic polymorphism in the general population, and/or the timing of the specimen collection after drinking, detection of only one metabolite, either ETG or ETS is possible. MRO evalution is recommended for forensic issues. If applicable, any drug confirmation testing reported here was developed and the performance characteristics determined by [facility]. This confirmation testing has not been cleared or approved by the FDA. The laboratory is regulated under CLIA as qualified to perform high-complexity testing. This test is used for patient testing purposes. It should not be regarded as investigational or for research. Test performed at [facility], [address] , [place] [address] Lilia Palomino MD, PhD - Kennel Keeper Urine Urine specimen from urethra / Unknown Non-blood Collection / Unknown 05/22/2025 11:18 PM EDT 05/23/2025 6:18 AM EDT Dani Burgess MD LAB URINE ORDERABLES Final Result [facility] [address] [place] [address] * MR Abdomen wo Contrast MRCP (05/22/2025 1:20 PM EDT) Anatomical Region Laterality Modality Body Magnetic Resonan ce 05/22/2025 3:04 PM EDT Impressions 05/22/2025 3:09 PM EDT 1. Trace peripancreatic fluid as can be seen in setting of pancreatitis. 2. There is thickening of the distal common bile duct at the ampulla. Tiny stone in this region is not entirely excluded but there is no definitive filling defect. 3. Bilateral adrenal adenomas. -------- FINAL REPORT -------- Dictated By: Fer Jeff Dictated Date: 05/22/2025 15:04 ET Assigned Physician: Fer Jeff Reviewed and Electronically Signed By: Fer Jeff Signed Date: 05/22/2025 15:09 ET Workstation ID: [id number] Transcribed By: Self Edit Transcribed Date: 05/22/2025 15:04 ET Narrative 05/22/2025 3:09 PM EDT MR ABDOMEN WO CONTRAST MRCP INDICATION: acute pancreatitis, biliary sludge on US TECHNIQUE: Coronal T2 single shot fast spin echo through the entire abdomen and pelvis; Axial T2 SSFSE, axial T1, axial T2 in and out of phase FSPGR, and axial T1 LAVA 3-D pre-contrast images of the abdomen are provided. CONTRAST: None. COMPARISON: FINDINGS: LUNG BASES: Clear. LIVER: Unremarkable. SPLEEN: Unremarkable. PANCREAS: Unremarkable. Trace peripancreatic fluid as can be seen in setting of pancreatitis. GALLBLADDER: Unremarkable. There is no biliary dilatation. There is thickening of the distal common bile duct at the ampulla. Tiny stone in this region is not entirely excluded but there is no definitive filling defect ADRENALS: Left greater than right adrenal adenomas evident by patchy signal loss on out of phase images. KIDNEYS: Unremarkable size and shape bilaterally, without evidence of hydronephrosis. GASTROINTESTINAL TRACT: Visualized portions of the stomach, small and large bowel are normal. The appendix is seen and is normal. Thickening of the distal esophagus could be related to reflux. Lymph Nodes: There is no evidence of intraperitoneal, retroperitoneal, or pelvic adenopathy or mass. Bones and soft tissues: Unremarkable. Procedure Note Fer Jeff MD - 05/22/2025 MR ABDOMEN WO CONTRAST MRCP INDICATION: acute pancreatitis, biliary sludge on US TECHNIQUE: Coronal T2 single shot fast spin echo through the entireabdomen and pelvis; Axial T2 SSFSE, axial T1, axial T2 in and out of phaseFSPGR, and axial T1 LAVA 3-D pre-contrast images of the abdomen areprovided. CONTRAST: None. COMPARISON: FINDINGS: LUNG BASES: Clear. LIVER: Unremarkable. SPLEEN: Unremarkable. PANCREAS: Unremarkable. Trace peripancreatic fluid as can be seen insetting of pancreatitis. GALLBLADDER: Unremarkable. There is no biliary dilatation. There isthickening of the distal common bile duct at the ampulla. Tiny stone inthis region is not entirely excluded but there is no definitive fillingdefect ADRENALS: Left greater than right adrenal adenomas evident by patchysignal loss on out of phase images. KIDNEYS: Unremarkable size and shape bilaterally, without evidence ofhydronephrosis. GASTROINTESTINAL TRACT: Visualized portions of the stomach, small andlarge bowel are normal. The appendix is seen and is normal. Thickeningof the distal esophagus could be related to reflux. Lymph Nodes: There is no evidence of intraperitoneal, retroperitoneal, orpelvic adenopathy or mass. Bones and soft tissues: Unremarkable. IMPRESSION: 1. Trace peripancreatic fluid as can be seen in setting ofpancreatitis. 2. There is thickening of the distal common bile duct at the ampulla.Tiny stone in this region is not entirely excluded but there is nodefinitive filling defect. 3. Bilateral adrenal adenomas. -------- FINAL REPORT -------- Dictated By: Fer Jeff Dictated Date: 05/22/2025 15:04 ET Assigned Physician: Fer Jeff Reviewed and Electronically Signed By: Fer Jeff Signed Date: 05/22/2025 15:09 ET Workstation ID: [id number] Transcribed By: Self Edit Transcribed Date: 05/22/2025 15:04 ET us Makeda CARR IMG MRI PROCEDURES Final Result * Phosphorus (05/22/2025 5:21 AM EDT) Phosphorus 2.9 2.5 - 4.5 mg/dL LAB CHEMISTRY METHOD 05/22/2025 6:07 AM EDT [facility] Blood Venous blood specimen / Unknown Venipuncture / Unknown 05/22/2025 5:21 AM EDT 05/22/2025 5:44 AM EDT us Dani Burgess MD LAB BLOOD ORDERABLES Final Result [facility] [address] [place] [address], [place] [phone] * US Abdomen Limited (05/22/2025 1:27 AM EDT) Anatomical Region Laterality Modality Body Ultrasound 05/22/2025 2:13 AM EDT Impressions 05/22/2025 2:13 AM EDT 1. Small amount of gallbladder sludge. Gallbladder appears otherwise normal. 2. Mild hepatic steatosis and mild hepatomegaly. This document has been electronically signed by: José Hawkins MD on 05/22/2025 02:13:56 Narrative 05/22/2025 2:13 AM EDT INDICATION: Eval for gallbladder disease US abdomen limited Comparison: CT - CT ABDOMEN PELVIS W CONTRAST - 05/22/25 00:30 EDT Findings: The visualized pancreas is unremarkable. Hepatic echogenicity is mildly increased consistent with mild hepatic steatosis. There is mild hepatomegaly. There is no bile duct dilation. Common duct measures 5 mm in diameter. There is a small amount of sludge in the gallbladder. Gallbladder appears otherwise normal. No gallstones are seen. There is no sonographic [place] sign. Right kidney appears normal. The right kidney measures 10.7 cm in length. No free fluid is seen. Procedure Note José Hawkins MD - 05/22/2025 INDICATION: Eval for gallbladder disease US abdomen limited Comparison: CT - CT ABDOMEN PELVIS W CONTRAST - 05/22/25 00:30 EDT Findings: The visualized pancreas is unremarkable. Hepatic echogenicity is mildly increased consistent with mild hepatic steatosis. There is mild hepatomegaly. There is no bile duct dilation. Common duct measures 5 mm in diameter. There is a small amount of sludge in the gallbladder. Gallbladderappears otherwise normal. No gallstones are seen. There is no sonographic [place] sign. Right kidney appears normal. The right kidney measures 10.7 cm inlength. No free fluid is seen. IMPRESSION: 1. Small amount of gallbladder sludge. Gallbladder appears otherwise normal. 2. Mild hepatic steatosis and mild hepatomegaly. This document has been electronically signed by: José Hawkins MD on 05/22/2025 02:13:56 us Dani Burgess MD [facility] US PROCEDURES Final Res ult * (ABNORMAL) Lipid panel with reflex to direct LDL (05/21/2025 6:02 PM EDT) Cholesterol 233(H) 0 - 200 mg/dL LAB CHEMISTRY METHOD 05/22/2025 12:10 AM EDT [facility] Triglycerides 320(H) 0 - 150 mg/dL LAB CHEMISTRY METHOD 05/22/2025 12:10 AM EDT [facility] HDL 46 >=40 mg/dL LAB CHEMISTRY METHOD 05/22/2025 12:10 AM EDT [facility] LDL Calculated 123(H) 0 - 100 mg/dL LAB CHEMISTRY METHOD 05/22/2025 12:10 AM EDT [facility] Comment:Estimated LDL Calcul ated using equation: Total cholesterol - HDL cholesterol - (Triglycerides/5) VLDL Cholesterol Rupesh 64 mg/dL LAB CHEMISTRY METHOD 05/22/2025 12:10 AM EDT [facility] Non HDL Chol. (LDL+VLDL) 187(H) <145 mg/dL LAB CHEMISTRY METHOD 05/22/2025 12:10 AM EDT [facility] Chol/HDL Ratio 5.1(H) 0.0 - 4.4 LAB CHEMISTRY METHOD 05/22/2025 12:10 AM EDT [facility] Blood Venous blood specimen / Unknown Venipuncture / Unknown 05/21/2025 6:02 PM EDT 05/21/2025 6:10 PM EDT Андрей Vázquez MD LAB BLOOD ORDERABLES Final Result [facility] [address] [place] [address], [place] [phone] * Lactate dehydrogenase (05/21/2025 6:02 PM EDT) LDH 192 120 - 246 unit/L LAB CHEMISTRY METHOD 05/22/2025 2:17 AM EDT [facility] Blood Venous blood specimen / Unknown Venipuncture / Unknown 05/21/2025 6:02 PM EDT 05/21/2025 6:10 PM EDT Dani Burgess MD LAB BLOOD ORDERABLES Final Result [facility] [address] [place] [address], [place] [phone] * (ABNORMAL) Hemoglobin A1c (05/21/2025 6:02 PM EDT) Hemoglobin A1C 12.6(H) <6.5 % LAB CHEMISTRY METHOD 05/22/2025 11:03 AM EDT [facility] Mean Bld Glu Estim. 315 mg/dL LAB CHEMISTRY METHOD 05/22/2025 11:03 AM EDT [facility] Blood Venous blood specimen / Unknown Venipuncture / Unknown 05/21/2025 6:02 PM EDT 05/21/2025 6:10 PM EDT Dani Burgess MD LAB BLOOD ORDERABLES Final Result Performing Organization Address [facility]/ZIP Co de Phone Number [facility] [address] [place] [address], [place] [phone] * (ABNORMAL) Cholesterol, total (05/21/2025 6:02 PM EDT) Cholesterol 239(H) 0 - 200 mg/dL LAB CHEMISTRY METHOD 05/21/2025 11:10 PM EDT [facility] Blood Venous blood specimen / Unknown Venipuncture / Unknown 05/21/2025 6:02 PM EDT 05/21/2025 6:10 PM EDT Lori Mejia MD LAB BLOOD ORDERABLES Final Resul t [facility] [address] [place] [address], [place] [phone] from Last 3 Months Insurance [facility] [employer]ICA[employer] Advance Directives * Full Code - Default (Latest Code Status on File) Date Activated Date Inactivated Comments 05/22/2025 1:44 AM 05/25/2025 1:18 PM This is or antonio is used when code status has not been discussed with the patient, or code status is otherwise unknown/unconfirmed To update the patient's code status, place a code status order. Do not modify or discontinue any currently active code status orders. Care Teams Ad Operations Coordinator Relationship Specialty Start Date End Date Physician, Pcp Unknown PCP - General 05/21/25
== END 2025-06-11 16:36 | disposition home or self-care (01) ==
LOC: HO.HGS 15:51
PROVIDERS: PCP Internal Medicine; Visit Provider Surgery
DX: R10.10 Upper abdominal pain, unspecified (principal)
CPT/HCPCS: 99213

== ENCOUNTER → 2025-06-11 15:50 | Outpatient (BNVA) | payer OTHER, SELFPAY | PROVIDERS: PCP Internal Medicine; Visit Provider Surgery | DX: R10.10 Upper abdominal pain, unspecified (principal); R74.8 Abnormal levels of other serum enzymes | CPT/HCPCS: 99212 ==

== ENCOUNTER 2025-07-19 09:27 | Outpatient (AMB) | payer OTHER, SELFPAY ==
--- NOTE | 2025-07-19 09:33 | MHC.OFFVIS ---
Vital Signs 07/19/25 09:38 Height 5 ft 5 in Weight 169 lb 5 oz BMI 28.2 BP 109/59 L Blood Pressure Location Rt brachial Position Sitting Pulse 91 Intake Visit Reasons: Abdominal pain Intake Note: Patient presents for a one month follow-up for abdominal pain. Pt c/o; no changes. 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: Yes Fruit Loader Machine Operator Language: Reading Instructor Services: Fruit Loader Machine Operator Present Fruit Loader Machine Operator Name: Fercho Information Interpreted: non-clinical & clinical Accompanied by: Son Allergies ciprofloxacin (From CIPRO) Allergy (Intermediate, Verified 07/19/25 09:40) RASH Sulfa (Sulfonamide Antibiotics) (SULFA (SULFONAMIDE ANTIBIOTICS)) Allergy (Intermediate, Verified 07/19/25 09:40) RASH sulfamethoxazole (From SEPTRA) Allergy (Unknown, Verified 07/19/25 09:40) SWELLING trimethoprim (From SEPTRA) Allergy (Unknown, Verified 07/19/25 09:40) SWELLING SEAFOOD Allergy (Severe, Uncoded 07/19/25 09:40) ANAPHYLAXIS Medication List - Last Reconciled 07/19/25 by Damon Vásquez MD albuterol sulfate 90 mcg/actuation (Ventolin HFA) 2 puffs inhalation Q6H PRN amitriptyline 25 mg PO DAILY aspirin 81 mg PO DAILY qtlecxqqtu-mmussgsgtlbmk-mmqj 50-325-40 mg 1 tab PO Q6H PRN cefuroxime axetil 500 mg PO BID clonazepam 0.5 mg PO BID PRN diclofenac sodium 75 mg PO BID doxepin 100 mg PO BEDTIME fluticasone propionate 50 mcg/actuation 1 spray intranasal BID PRN glucagon (Glucagon Emergency Kit) 1 mg IM Q20M PRN insulin glargine (Lantus Solostar U-100 Insulin) 85 units subcut BEDTIME insulin lispro See Protocol sliding scale doses subcut TIDWM lamotrigine 50 mg PO BEDTIME montelukast 10 mg PO DAILY pantoprazole 40 mg PO BID@0630,1630 pregabalin 150 mg PO DAILY tamsulosin 0.4 mg PO DAILY 90 days HPI HPI Abdominal pain: Details: She is here for her recurrent abdominal pain. I had seen her last month as she has had multiple visits in the ER for vague abdominal pains. I have reviewed her imaging studies from [facility] and this did not reveal any acute inflammatory changes. She does have some high volume of stool in her colon suggestive of constipation. She does admit to having constipation issues She otherwise says that her abdominal pain has improved significantly although she says she still has periodic pains sometimes right more than the left. She denies any nausea or vomiting. She denies any weight loss. She frequently feels that her abdomen is distended. 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 learning disabled) Alcohol intake: former Patient Tobacco Use Status: Tobacco use Unknown Tobacco use type: Cigarette Cigarettes Per Day: 3 Years Smoked: 20 e-Cigarette/Vaping Use: Currently Using Second Hand Smoke Exposure: No service: No Review of Systems Const Denies chills and Denies fever(s) Card Denies chest pain, Denies dyspnea and Denies dyspnea on exertion Resp Denies cough, Denies dyspnea and Denies dyspnea on exertion GI Denies hematochezia and Denies change in bowel habits Denies hematuria Musc Denies back pain and Denies limited range of motion Neuro Details: Numbness on both lower extremities Denies focal weakness and Denies convulsions Psych Denies depression and Denies mood swings Physical Exam Vital Signs: Last Vital Signs Pulse 91 07/19/25 09:38 BP 109/59 L 07/19/25 09:38 BMI result Body Mass Index 28.2 Const General: comfortable and no acute distress Orientation/consciousness: patient oriented x3 Neck Neck: Yes no lymphadenopathy Resp Auscultation: clear to auscultation bilaterally Cardio Rhythm: regular rhythm GI Palpation (GI): Soft to palpation, nontender and no guarding Neuro General: patient oriented x3 Assessment & Plan Assessment & Plan (1) Abdominal pain: Code(s): R10.9 - Unspecified abdominal pain Category: Medical Qualifiers: Abdominal location: upper abdomen, unspecified Qualified Code(s): R10.10 - Upper abdominal pain, unspecified Plan: Her abdominal pain has improved. Review of her images suggest chronic constipation with a high stool volume in the colon. I do not see any inflammatory changes surrounding the pancreas I explained to her that I am uncertain as to the exact etiology but I will try her on stool softeners and fiber supplements in view of her chronic constipation. I did tell her that she can follow up with me down the line if she continues to have problems in the future She also mentioned that she has problems with her lower extremities with numbness. She has unsteady gait with this. I told her that she should discuss being referred to a neurologist for this with her primary care physician and she understands. Coding Level of Care Code Est Pt Level 3 (57174) Diagnoses Abdominal pain R10.10 Abdominal location: upper abdomen, unspecified
[2025-07-19 09:38] VITALS: BP 109/59; PULSE 91; BMI 28.2
--- OUTSIDE RECORDS SUMMARY | 2025-07-19 10:51 | XMS_ITS | Clinical Summary ---
Author Organization [facility] Address [address] [place] [address] Phone Care Team Providers Care Room Service Associate Name Role Phone Physician, Pcp Unknown Primary Care Provider Judy vailable Allergies Active Allergy Reactions Criticality Noted Date Comments Sulfamethoxazole-Trimethoprim Swelling 2024 Shellfish Derived Swelling 05/21/2025 Sulfa (Sulfonamide Antibiotics) Swelling 05/03 Medications clonazePAM (KlonoPIN) 0.5 mg tablet Take 1 tablet (0.5 mg total) by mouth 2 (two) times a day if needed for anxiety. Active diclofenac (VOLTAREN) 75 mg EC tablet Take 1 tablet (75 mg total) by mouth 2 (two) times a day if needed (Foot pain). Active doxepin (SINEquan) 100 mg capsule Take 1 capsule (100 mg total) by mouth at bedtime. Active fluticasone propionate (FLONASE) 50 mcg/actuation nasal spray Administer 1 spray into each nostril 1 (one) time each day. Active Lantus Solostar U-100 Insulin 100 unit/mL (3 mL) injection pen Inject 80 Units under the skin at bedtime. Active insulin lispro (HumaLOG KwikPen) 100 unit/mL injection pen Inject 8-18 Units under the skin 3 (three) times a day before meals. Active lamoTRIgine (LaMICtal) 100 mg tablet Take 1 tablet (100 mg total) by mouth at bedtime. Active lamoTRIgine (LaMICtal) 25 mg tablet Take 2 tablets (50 mg total) by mouth at bedtime. Active montelukast (SINGULAIR) 10 mg tablet Take 1 tablet (10 mg total) by mouth at bedtime. Active pantoprazole (PROTONIX) 40 mg EC tablet Take 1 tablet (40 mg total) by mouth 2 (two) times a day before meals. Active pregabalin (LYRICA) 150 mg capsule Take 1 capsule (150 mg total) by mouth. FOREST 1 CAPSULE BY MOUTH IN THE MORNING AND 2 CAPSULES BY MOUTH AT BEDTIME Active amitriptyline (ELAVIL) 25 mg tablet Take [...] mouth every 12 (twelve) hours. 60 capsule 07/09/20 Active Problems Problem Noted Date Diagnosed Date Acute pancreatitis 05/22/2025 Encounters Date Type Department Care Team Description 06/08/2025 11:44 PM EST - 06/09/2025 4:38 AM [facility] Emergency [address] [place] [address] Atherosclerotic peripheral vascular disease with intermittent claudication (CMS/[facility] V24) (Primary Dx); Nausea; Constipation, unspecified constipation type Discharge Disposition: Home or Self Care 06/06/2025 4:32 PM EST - 06/06/2025 9:33 PM [facility] Emergency [address] [place] [phone] Rafael Caban MD Ziebro, John, MD Epigastric pain (Primary Dx); Hyperglycemia Discharge Disposition: Home or Self Care 05/21/2025 7:31 PM EDT - 05/25/2025 11:08 AM EDT Hospital Encounter [facility] [address] [place] [phone] Андрей Vázquez MD Jones, MD Jose Antonio Louise Nermina, MD Mohani, Priya, MD Acute pancreatitis, [...] care for your loved ones. For example, maternal child nurse or elderly care for an older adult? [...] on file Sexual Orientation Not on file Last Filed Vital Signs Vital Sign Reading [...] Screening 1976 Colorectal Cancer Screening: Colonoscopy 1976 Drug Screen 1976 Non-Opioid Controlled Substance Agreement 1976 Diabetes: Annual Foot Exam 1986 Diabetes: [...] - PCV) 11/26/2019 11/25/2018 Depression Screening 08/02/2024 COVID-19 Vaccine (6 - 2024- season) 2025 07/07/2024, 05/15/2022, 09/24/2021, Additional history exists Diabetes: Annual Urine Albumin-Creatinine Ratio (uACR) 05/21/2025 [...] Patients (1 - 1-dose 75+ series) 2051 Influenza Vaccine Completed 05/11/2025, , 07/07/2024, Additional [...] of2 resultswithin the time period is included. Pathologist [facility] [place] Specific [place] Urine 1.038(H) 1.003 - 1.030 LAB URINALYSIS - AUTOMATED METHOD 06/09/2025 2:08 AM [facility] pH, Urine 6.5 5.0 - 8.0 pH LAB URINALYSIS - AUTOMATED METHOD 06/09/2025 2:08 AM [facility] Leukocytes, Urine Negative Negative LAB URINALYSIS - AUTOMATED METHOD 06/09/2025 2:08 AM [facility] Nitrite, Urine Negative Negative LAB URINALYSIS - AUTOMATED METHOD 06/09/2025 2:08 AM [facility] Protein, Urine Negative <=Trace mg/dL LAB URINALYSIS - AUTOMATED METHOD 06/09/2025 2:08 AM [facility] Glucose, Urine >=1000(A) Negative mg/dL LAB URINALYSIS - AUTOMATED METHOD 06/09/2025 2:08 AM [facility] Ketones, Urine Negative Negative mg/dL LAB URINALYSIS - AUTOMATED METHOD 06/09/2025 2:08 AM [facility] Urobilinogen , Urine 0.2 0.2 - 1.0 mg/dL LAB URINALYSIS - AUTOMATED METHOD 06/09/2025 2:08 AM [facility] Bilirubin, Urine Negative Negative LAB URINALYSIS - AUTOMATED METHOD 06/09/2025 2:08 AM [facility] Blood, Urine Small(A) Negative LAB URINALYSIS - AUTOMATED METHOD 06/09/2025 2:08 AM [facility] RBC, Urine 2 0 - 4 /HPF LAB URINALYSIS - AUTOMATED METHOD 06/09/2025 2:08 AM [facility] WBC, Urine 3 0 - 4 /HPF LAB URINALYSIS - AUTOMATED METHOD 06/09/2025 2:08 AM [facility] Squamous Epithelial, Urine 5 0 - 60 /LPF LAB URINALYSIS - AUTOMATED METHOD 06/09/2025 2:08 AM [facility] Bacteria, Urine Negative Negative /HPF LAB URINALYSIS - AUTOMATED METHOD 06/09/2025 2:08 AM [facility] Hyaline Casts, Urine 0 0 - 3 /LPF LAB URINALYSIS - AUTOMATED METHOD 06/09/2025 2:08 AM [facility] Urine Urine specimen obtained by clean catch procedure / Unknown Non-blood Collection / Unknown 06/09/2025 12:53 AM EST 06/09/2025 1:00 AM EST us Lori CARR LAB URINE ORDERABLES Fin al Result [facility] [address] [place] [address], [place] [phone] * Lactate, with Reflex (06/09/2025 12:47 AM EST) LACTIC ACID 1.8 0.4 - 2.0 mmol/L LAB CHEMISTRY METHOD 06/09/2025 1:30 AM [facility] Blood Venous blood specimen / Unknown Venipuncture / Unknown 06/09/2025 12:47 AM EST 06/09/2025 12:57 AM EST Lori CARR LAB BLOOD ORDERABLES Fin al Result [facility] [address] [place] [address], * (ABNORMAL) CBC auto differential (06/09/2025 12:47 AM EST) Only the most recent of5 resultswithin the time period is included. WBC 8.0 4.8 - 10.8 K/mcL LAB HEMETOLOGY METHOD 06/09/2025 1:11 AM [facility] RBC 4.20 3.80 - 4.80 M/mcL LAB HEMETOLOGY METHOD 06/09/2025 1:11 AM [facility] Hemoglobin 12.3 11.5 - 16.0 g/dL LAB HEMETOLOGY METHOD 06/09/2025 1:11 AM [facility] Hematocrit 36.7 35.0 - 47.0 % LAB HEMETOLOGY METHOD 06/09/2025 1:11 AM [facility] MCV 86.8 79.0 - 98.0 FL LAB HEMETOLOGY METHOD 06/09/2025 1:11 AM [facility] MCH 29.1 27.0 - 32.0 pcg LAB HEMETOLOGY METHOD 06/09/2025 1:11 AM [facility] MCHC 33.5 32.0 - 37.0 g/dL LAB HEMETOLOGY METHOD 06/09/2025 1:11 AM [facility] RDW 13.2 11.0 - 15.0 % LAB HEMETOLOGY METHOD 06/09/2025 1:11 AM [facility] Platelets 275 130 - 400 K/mcL LAB HEMETOLOGY METHOD 06/09/2025 1:11 AM [facility] MPV 9.9 7.0 - 11.0 FL LAB HEMETOLOGY METHOD 06/09/2025 1:11 AM [facility] NRBC 0.0 <1.0 % LAB HEMETOLOGY METHOD 06/09/2025 1:11 AM [facility] NRBC Absolute 0.00 <0.10 K/mcL LAB HEMETOLOGY METHOD 06/09/2025 1:11 AM [facility] Neutrophils Relative 72.3 % LAB HEMETOLOGY METHOD 06/09/2025 1:11 AM [facility] Lymphocytes Relative 19.0 % LAB HEMETOLOGY METHOD 06/09/2025 1:11 AM [facility] Monocytes Relative 7.1 % LAB HEMETOLOGY METHOD 06/09/2025 1:11 AM [facility] Eosinophils Relative 0.9 % LAB HEMETOLOGY METHOD 06/09/2025 1:11 AM [facility] Basophils Relative 0.2 % LAB HEMETOLOGY METHOD 06/09/2025 1:11 AM [facility] Immature Granulocytes Relative 0.5 % LAB HEMETOLOGY METHOD 06/09/2025 1:11 AM [facility] Neutrophils Absolute 5.81 1.50 - 7.00 K/mcL LAB HEMETOLOGY METHOD 06/09/2025 1:11 AM [facility] Lymphocytes Absolute 1.53 1.00 - 5.00 K/mcL LAB HEMETOLOGY METHOD 06/09/2025 1:11 AM [facility] Monocytes Absolute 0.57 0.20 - 1.00 K/mcL LAB HEMETOLOGY METHOD 06/09/2025 1:11 AM EST [facility] Eosinophils Absolute 0.07 0.00 - 0.50 K/[facility] LAB HEMETOLOGY METHOD 06/09/2025 1:11 AM EST [facility] Basophils Absolute 0.02 0.00 - 0.20 K/[facility] LAB HEMETOLOGY METHOD 06/09/2025 1:11 AM EST [facility] Immature Granulocytes Absolute 0.04(H) 0.00 - 0.03 K/[facility] LAB HEMETOLOGY METHOD 06/09/2025 1:11 AM EST [facility] Blood Venous blood specimen / Unknown Venipuncture / Unknown 06/09/2025 12:47 AM EST 06/09/2025 12:56 AM EST Lori CARR LAB BLOOD ORDERABLES Fin al Result [facility] [address] [place] [address], [place] [phone] * Magnesium (06/09/2025 12:47 AM EST) Only the most recent of3 resultswithin the time period is included. Magnesium 2.0 1.9 - 2.6 mg/dL LAB CHEMISTRY METHOD 06/09/2025 1:32 AM EST [facility] Blood Venous blood specimen / Unknown Venipuncture / Unknown 06/09/2025 12:47 AM EST 06/09/2025 12:56 AM EST Lori CARR LAB BLOOD ORDERABLES Fin al Result [facility] [address] [place] [address], [place] [phone] * (ABNORMAL) Lipase (06/09/2025 12:47 AM EST) Only the most recent of5 resultswithin the time period is included. Lipase 78(H) 13 - 75 unit/L LAB CHEMISTRY METHOD 06/09/2025 1:32 AM [facility] Blood Venous blood specimen / Unknown Venipuncture / Unknown 06/09/2025 12:47 AM EST 06/09/2025 12:56 AM EST Lori CARR LAB BLOOD ORDERABLES Fin al Result [facility] [address] [place] [address], * (ABNORMAL) Comprehensive Metabolic Panel (CMP) (06/09/2025 12:47 AM EST) Only the most recent of5 resultswithin the time period is included. Pathologist [facility] [place] Sodium 134 133 - 145 mmol/L LAB CHEMISTRY METHOD 06/09/2025 1:36 AM [facility] Potassium 4.3 3.5 - 5.5 mmol/L LAB CHEMISTRY METHOD 06/09/2025 1:36 AM [facility] Chloride 100 96 - 110 mmol/L LAB CHEMISTRY METHOD 06/09/2025 1:36 AM [facility] CO2 30 21 - 32 mmol/L LAB CHEMISTRY METHOD 06/09/2025 1:36 AM [facility] Anion Gap 4 3 - 11 LAB CHEMISTRY METHOD 06/09/2025 1:36 AM [facility] Glucose 360(H) 70 - 100 mg/dL LAB CHEMISTRY METHOD 06/09/2025 1:36 AM [facility] BUN 9 5 - 25 mg/dL LAB CHEMISTRY METHOD 06/09/2025 1:36 AM [facility] Creatinine 0.83 0.50 - 1.10 mg/dL LAB CHEMISTRY METHOD 06/09/2025 1:36 AM [facility] eGFR 87 >=60 mL/min/1. 73m2 LAB CHEMISTRY METHOD 06/09/2025 1:36 AM [facility] Comment:Calculation based on the Chronic Kidney Disease Epidemiology Collaboration (CKD-EPI) equation refit without adjustment for race. BUN/Creatinine Ratio 10.8 LAB CHEMISTRY METHOD 06/09/2025 1:36 AM [facility] Calcium 9.4 8.5 - 10.5 mg/dL LAB CHEMISTRY METHOD 06/09/2025 1:36 AM [facility] AST (SGOT) 30 10 - 42 unit/L LAB CHEMISTRY METHOD 06/09/2025 1:36 AM [facility] ALT (SGPT) 82(H) 10 - 60 unit/L LAB CHEMISTRY METHOD 06/09/2025 1:36 AM [facility] Alkaline Phosphatase 113 42 - 121 unit/L LAB CHEMISTRY METHOD 06/09/2025 1:36 AM [facility] Total Protein 7.1 6.0 - 8.0 g/dL LAB CHEMISTRY METHOD 06/09/2025 1:36 AM [facility] Albumin 3.5 3.2 - 5.0 g/dL LAB CHEMISTRY METHOD 06/09/2025 1:36 AM [facility] Total Bilirubin 0.2 0.0 - 1.4 mg/dL LAB CHEMISTRY METHOD 06/09/2025 1:36 AM [facility] Blood Venous blood specimen / Unknown Venipuncture / Unknown 06/09/2025 12:47 AM EST 06/09/2025 12:56 AM EST us Lori CARR LAB BLOOD ORDERABLES Fin al Result [facility] [address] [place] [address], * (ABNORMAL) POCT Glucose, blood (06/08/2025 11:25 PM EST) Only the most recent of17 resultswithin the time period is included. Glucose POCT 392(H) 70 - 100 mg/dL 06/08/2025 11:25 PM EST [facility] Blood Capillary blood specimen / Unknown 06/08/2025 11:25 PM EST 06/08/2025 11:26 PM EST Generic Provider Poct LAB POINT OF CARE TEST DOCKED DEVICE UNSOLICITED RESULTS Final Result Performing Organization Address City/[facility]/ZIP Co de Phone Number [facility] [address] [place] [address], [place] [phone] * Beta hydroxybutyrate (06/06/2025 3:01 PM EST) Only the most recent of2 resultswithin the time period is included. Beta-Hydroxybu tyrate 0.9 0.2 - 2.8 mg/dL LAB CHEMISTRY METHOD 06/06/2025 4:05 PM EST [facility] Blood Venous blood specimen / Unknown Venipuncture / Unknown 06/06/2025 3:01 PM EST 06/06/2025 3:06 PM EST Андрей Vázquez MD LAB BLOOD ORDERABLES Final Result Performing Organization Address [facility]/ZIP Co de Phone Number [facility] [address] [place] [address], * (ABNORMAL) Osmolality (06/06/2025 3:01 PM EST) Only the most recent of2 resultswithin the time period is included. Osmolality Gemma 315(H) 280 - 300 mOsm/kg LAB CHEMISTRY METHOD 06/06/2025 3:47 PM EST [facility] Blood Venous blood specimen / Unknown Venipuncture / Unknown 06/06/2025 3:01 PM EST 06/06/2025 3:06 PM EST Андрей Vázquez MD LAB BLOOD ORDERABLES Final Result Performing Organization Address [facility]/ZIP Co de Phone Number [facility] [address] [place] [address], * (ABNORMAL) Venous blood gas (06/06/2025 3:01 PM EST) pH, [place] 7.39 7.32 - 7.42 pH 06/06/2025 3:15 PM EST [facility] pCO2, [place] 50 41 - 51 mmHg 06/06/2025 3:15 PM EST [facility] pO2, [place] 17(L) 25 - 40 mmHg 06/06/2025 3:15 PM EST [facility] HCO3, Venous 26.1(H) 22.0 - 26.0 mmol/L 06/06/2025 3:15 PM EST [facility] O2 Sat, [place] <30.0 % 06/06/2025 3:15 PM EST [facility] Base Excess, [place] 4.2(H) -2.0 - 2.0 mmol/L 06/06/2025 3:15 PM EST [facility] Blood Venous blood specimen / Unknown Venipuncture / Unknown 06/06/2025 3:01 PM EST 06/06/2025 3:05 PM EST Андрей Vázquez MD LAB BLOOD ORDERABLES Final Result [facility] [address] [place] [address], [place] [phone] * (ABNORMAL) POC glucose manually resulted (06/06/2025 2:57 PM EST) Blood Capillary blood specimen / Unknown 06/06/2025 2:57 PM EST Андрей Vázquez MD POINT OF CARE TEST ENTER/ED IT ORDERABLES Final Result * Lavender tube (05/25/2025 6:31 AM EDT) Pathologist [facility] [place] Extra Tube Hold for add-ons. 05/25/2025 10:01 AM EDT [facility] Comment:Auto resulted. Blood Venous blood specimen / Unknown 05/25/2025 6:31 AM EDT 05/25/2025 8:09 AM EDT Nery Tejada MD LAB BLOOD ORDERABLES Final Resul t [facility] [address] [place] [address], * Complete blood count (05/23/2025 5:55 AM EDT) [facility] WBC 7.3 4.8 - 10.8 K/mcL LAB HEMETOLOGY METHOD 05/23/2025 6:46 AM [facility] RBC 4.20 3.80 - 4.80 M/[facility] LAB HEMETOLOGY METHOD 05/23/2025 6:46 AM [facility] Hemoglobin 12.0 11.5 - 16.0 g/dL LAB HEMETOLOGY METHOD 05/23/2025 6:46 AM [facility] Hematocrit 36.3 35.0 - 47.0 % LAB HEMETOLOGY METHOD 05/23/2025 6:46 AM [facility] MCV 87.3 79.0 - 98.0 FL LAB HEMETOLOGY METHOD 05/23/2025 6:46 AM [facility] MCH 28.8 27.0 - 32.0 pcg LAB HEMETOLOGY METHOD 05/23/2025 6:46 AM [facility] MCHC 33.1 32.0 - 37.0 g/dL LAB HEMETOLOGY METHOD 05/23/2025 6:46 AM [facility] RDW 13.6 11.0 - 15.0 % LAB HEMETOLOGY METHOD 05/23/2025 6:46 AM EDT [facility] Platelets 317 130 - 400 K/mcL LAB HEMETOLOGY METHOD 05/23/2025 6:46 AM EDT [facility] MPV 9.8 7.0 - 11.0 FL LAB HEMETOLOGY METHOD 05/23/2025 6:46 AM EDT [facility] NRBC 0.0 <1.0 % LAB HEMETOLOGY METHOD 05/23/2025 6:46 AM EDT [facility] NRBC Absolute 0.00 <0.10 K/mcL LAB HEMETOLOGY METHOD 05/23/2025 6:46 AM EDT [facility] Blood Venous blood specimen / Unknown Venipuncture / Unknown 05/23/2025 5:55 AM EDT 05/23/2025 6:24 AM EDT us Makeda CARR LAB BLOOD ORDERABLES Final Resul t [facility] [address] [place] [address], * (ABNORMAL) Hepatic function panel (05/23/2025 5:55 AM EDT) Total Protein 6.4 6.0 - 8.0 g/dL LAB CHEMISTRY METHOD 05/23/2025 9:59 AM EDT [facility] Albumin 2.9(L) 3.2 - 5.0 g/dL LAB CHEMISTRY METHOD 05/23/2025 9:59 AM EDT [facility] Total Bilirubin 0.4 0.0 - 1.4 mg/dL LAB CHEMISTRY METHOD 05/23/2025 9:59 AM EDT [facility] Bilirubin, Direct 0.1 0.0 - 0.3 mg/dL LAB CHEMISTRY METHOD 05/23/2025 9:59 AM EDT [facility] Bilirubin, Indirect 0.3 0.0 - 1.1 mg/dL LAB CHEMISTRY METHOD [facility]/23[facility]2025 9:[facility] ALT (SGPT) 65(H) 10 - 60 unit/L LAB CHEMISTRY METHOD 05/23/2025 9:59 AM EDT [facility] AST (SGOT) 48(H) 10 - 42 unit/L LAB CHEMISTRY METHOD 05/23/2025 9:59 AM T [facility] Alkaline Phosphatase 107 42 - 121 unit/L LAB CHEMISTRY METHOD 05/23/2025 9:59 AM [facility] Blood Venous blood specimen / Unknown Venipuncture / Unknown 05/23/2025 5:55 AM EDT 05/23/2025 6:23 AM EDT us Makeda CARR LAB BLOOD ORDERABLES Final Resul t [facility] [address] [place] [address], * (ABNORMAL) Basic metabolic panel (05/23/2025 5:55 AM EDT) Only the most recent of2 resultswithin the time period is included. Sodium 139 133 - 145 mmol/L LAB CHEMISTRY METHOD 05/23/2025 9:57 AM [facility] Potassium 4.0 3.5 - 5.5 mmol/L LAB CHEMISTRY METHOD 05/23/2025 9:57 AM [facility] Chloride 105 96 - 110 mmol/L LAB CHEMISTRY METHOD 05/23/2025 9:57 AM [facility] CO2 29 21 - 32 mmol/L LAB CHEMISTRY METHOD 05/23/2025 9:57 AM [facility] Anion Gap 5 3 - 11 LAB CHEMISTRY METHOD 05/23/2025 9:57 AM EDT [facility] Glucose 148(H) 70 - 100 mg/dL LAB CHEMISTRY METHOD 05/23/2025 9:57 AM T [facility] BUN 7 5 - 25 mg/dL LAB CHEMISTRY METHOD 05/23/2025 9:57 AM [facility] Creatinine 0.62 0.50 - 1.10 mg/dL LAB CHEMISTRY METHOD 05/23/2025 9:57 AM EDT [facility] eGFR 109 >=60 mL/min/1. 73m2 LAB CHEMISTRY METHOD 05/23/2025 9:57 AM EDT [facility] Comment:Calculation based on the Chronic Kidney Disease Epidemiology Collaboration (CKD-EPI) equation refit without adjustment for race. BUN/Creatinine Ratio 11.3 LAB CHEMISTRY METHOD 05/23/2025 9:57 AM [facility] Calcium 9.1 8.5 - 10.5 mg/dL LAB CHEMISTRY METHOD 05/23/2025 9:57 AM [facility] Blood Venous blood specimen / Unknown Venipuncture / Unknown 05/23/2025 5:55 AM EDT 05/23/2025 6:23 AM EDT us Makeda CARR LAB BLOOD ORDERABLES Final Resul t [facility] [address] [place] [address], * Ethyl glucuronide urine with reflex confirmation (05/22/2025 11:18 PM EDT) Ethyl Sulfate Urine TNP ng/mL 05/25 9:44 AM EDT [facility] Ethyl Glucuronide Negative ng/mL 025 9:44 AM EDT [facility] Comment: Decision [...] developed and the performance characteristics determined by [facility]. This confirmation testing has not been cleared or approved by the FDA. The laboratory is regulated under CLIA as qualified to perform high-complexity testing. This test is used for patient testing purposes. It should not be regarded as investigational or for research. Test performed at [facility], [address] , [place] [address] Lilia Palomino MD, PhD - Scales Inspector Urine Urine specimen from urethra / Unknown Non-blood Collection / Unknown 05/22/2025 11:18 PM EDT 05/23/2025 6:18 AM EDT us Dani Burgess MD LAB URINE ORDERABLES Final Result [facility] [address] [place] [address] * MR Abdomen wo Contrast MRCP (05/22/2025 [...] Signed Date: 05/22/2025 15:09 ET Workstation ID: [id number] Transcribed By: Self Edit Transcribed Date: 05/22/2025 [...] Signed Date: 05/22/2025 15:09 ET Workstation ID: [id number] Transcribed By: Self Edit Transcribed Date: 05/22/2025 15:04 ET Makeda CARR [facility] [place]ED[place] Final Result * Phosphorus (05/22/2025 5:21 AM EDT) Phosphorus 2.9 2.5 - 4.5 mg/dL LAB CHEMISTRY METHOD 05/22/2025 6:07 AM EDT [facility] ([facility]) [facility] Blood Venous blood specimen / Unknown Venipuncture / Unknown 05/22/2025 5:21 AM EDT 05/22/2025 5:44 AM EDT us Dani Burgess MD LAB BLOOD ORDERABLES Final Result [facility]) [facility] [address] [place] [address], * US Abdomen Limited (05/22/2025 1:27 AM [...] on 05/22/2025 02:13:56 us Dani Burgess MD IMG US PROCEDURES Final Res ult * (ABNORMAL) Lipid panel with reflex to direct LDL (05/21/2025 6:02 PM EDT) Cholesterol 233(H) 0 - 200 mg/dL LAB CHEMISTRY METHOD 05/22/2025 12:10 AM EDT [facility] Triglycerides 320(H) 0 - 150 mg/dL LAB CHEMISTRY METHOD 05/22/2025 12:10 AM EDT [facility] HDL 46 >=40 mg/dL LAB CHEMISTRY METHOD 05/22/2025 12:10 AM [facility] LDL Calculated 123(H) 0 - 100 mg/dL LAB CHEMISTRY METHOD 05/22/2025 12:10 AM T [facility] Comment:Estimated LDL Calcul ated using equation: Total cholesterol - HDL cholesterol - (Triglycerides/5) VLDL Cholesterol Rupesh 64 mg/dL LAB CHEMISTRY METHOD 05/22/2025 12:10 AM [facility] Non HDL Chol. (LDL+VLDL) 187(H) <145 mg/dL LAB CHEMISTRY METHOD 05/22/2025 12:10 AM [facility] Chol/HDL Ratio 5.1(H) 0.0 - 4.4 LAB CHEMISTRY METHOD 05/22/2025 12:10 AM [facility] Blood Venous blood specimen / Unknown Venipuncture / Unknown 05/21/2025 6:02 PM EDT 05/21/2025 6:10 PM EDT us Андрей Vázquez MD LAB BLOOD ORDERABLES Final Result [facility] [address] [place] [address], [place] [phone] * Lactate dehydrogenase (05/21/2025 6:02 PM EDT) LDH 192 120 - 246 unit/L LAB CHEMISTRY METHOD 05/22/2025 2:17 AM EDT [facility] Blood Venous blood specimen / Unknown Venipuncture / Unknown 05/21/2025 6:02 PM EDT 05/21/2025 6:10 PM EDT us Dani Burgess MD LAB BLOOD ORDERABLES Final Result Performing Organization Address [facility]/ZIP Co de Phone Number [facility] [address] [place] [address], [place] [phone] * (ABNORMAL) Hemoglobin A1c (05/21/2025 6:02 PM EDT) Hemoglobin A1C 12.6(H) <6.5 % LAB CHEMISTRY METHOD 05/22/2025 11:03 AM EDT [facility] Mean Bld Glu Estim. 315 mg/dL LAB CHEMISTRY METHOD 05/22/2025 11:03 AM EDT [facility] Blood Venous blood specimen / Unknown Venipuncture / Unknown 05/21/2025 6:02 PM EDT 05/21/2025 6:10 PM EDT us Dani Burgess MD LAB BLOOD ORDERABLES Final Result Performing Organization Address [facility]/ZIP Co de Phone Number [facility] [address] [place] [address], [place] [phone] * (ABNORMAL) Cholesterol, total (05/21/2025 6:02 PM EDT) Cholesterol 239(H) 0 - 200 mg/dL LAB CHEMISTRY METHOD 05/21/2025 11:10 PM EDT [facility] Blood Venous blood specimen / Unknown Venipuncture / Unknown 05/21/2025 6:02 PM EDT 05/21/2025 6:10 PM EDT us Lori Mejia MD LAB BLOOD ORDERABLES Final Resul t [facility] [address] [place] [address], from Last 3 Months Insurance [facility] MEDICAID ADVANTAGE [address] [place] [phone] Advance Directives * Full Code - Default [...] currently active code status orders. Care Teams Room Service Associate Relationship Specialty Start Date End Date Physician, Pcp Unknown PCP - General 05/21/25
== END 2025-07-19 09:45 | disposition home or self-care (01) ==
LOC: HO.HGS 09:27
PROVIDERS: PCP Internal Medicine; Visit Provider Surgery
DX: R10.10 Upper abdominal pain, unspecified (principal)
CPT/HCPCS: 99213

== ENCOUNTER → 2025-07-19 09:27 | Outpatient (BNVA) | payer OTHER, SELFPAY | PROVIDERS: PCP Internal Medicine; Visit Provider Surgery | DX: R10.10 Upper abdominal pain, unspecified (principal) | CPT/HCPCS: 99212 ==